=== PATIENT | female | born 1945 | race Caucasian/White ===

== ENCOUNTER 2024-12-27 13:18 | Emergency (ER) | payer MEDICARE, BC, SELFPAY ==
[2024-12-27] VITALS (33 sets, daily range): BP systolic 138–231; BP diastolic 91–160; PULSE 98–126; RESP 14–34; TEMP 37.2–37.3; O2SAT 82–99; BMI 31.5
--- NOTE | 2024-12-27 13:26 | CT_ITS ---
PROCEDURE: BRAIN/HEAD WITHOUT CONTRAST 12/27/2024 REASON FOR EXAM: CONFUSION TECHNIQUE: BRAIN/HEAD WITHOUT CONTRAST Coronal and Sagittal reconstruction series were provided. One or more dose reduction techniques were used (e.g., Automated exposure control, adjustment of the mA and/or kV according to patient size, use of iterative reconstruction technique. RADIATION DOSE SUMMARY: CTDlvol: 44.99 mGy DLP: 796.11 mGycm COMPARISON: None FINDINGS: Brain: Low density in the periventricular white matter suggests mild chronic small vessel ischemic changes. Old tiny lacunar infarct in the head of the left caudate nucleus. There is evidence of a calcified nodule in the anterior medial aspect of the left frontal lobe suggestive of a meningioma. This abuts the anterior aspect of the falx on the right side. CSF Spaces: Mild generalized cerebral atrophy Sinuses/Mastoids: Clear at visualized levels Bones: CT/Brain/Head without Contrast IMPRESSION: Cerebral atrophy. Old tiny lacune in the head of the caudate nucleus on the left side. Findings suggestive of a 1.1 cm x 1.4 cm meningioma in the anterior medial aspe ct of the right frontal lobe abutting the cerebral falx. Reading Location: [place] [id number]
--- NOTE | 2024-12-27 13:26 | RAD_ITS ---
EXAM: XR Chest, 1 View CLINICAL INDICATION: CONFUSION TECHNIQUE: Frontal view of the chest. COMPARISON: No relevant prior studies available. FINDINGS: LUNGS AND PLEURAL SPACES: Unremarkable. No consolidation. No pneumothorax. HEART: Cardiomegaly without overt failure. MEDIASTINUM: Unremarkable. Normal mediastinal contour. BONES/JOINTS: Unremarkable. No acute fracture. RAD/Chest 1 View (Portable) IMPRESSION: Cardiomegaly without overt failure. Reading Location: [facility]
--- NOTE | 2024-12-27 13:26 | ED.RN ---
called stroke alert in triage for patient symptoms- not following commands appropriately, unable to say the words she is trying to say. Dr Garber evaluated in ED and canceled stroke alert. glucose 400 and pt denies being diabetic.
[2024-12-27 13:53] LABS: Hematocrit 36.6 % (37-47); Hemoglobin 12.3 g/dL (12.0-15.0); Immature Granulocytes Count 0.060 X10^3/uL (0.0-0.0); Mean Corp Hgb Conc 33.6 g/dL (32-36); Mean Corpuscular Volume 85.9 fL (81-99); Mean Platelet Vol. 10.9 fl (6.2-12.0); NRBC Flagged by Analyzer 0 % (0-5); Platelet Count 244 K/mm3 (150-450); RBC Distribution Width CV 12.7 % (11.6-14.6); RBC Distribution Width SD 39.5 fl (35.1-43.9); Red Blood Count 4.26 M/mm3 (4.2-5.4); White Blood Count 10.4 K/mm3 (4.4-11.0)
[2024-12-27 14:27] LABS: Mucous, Urine 0 SEEN /hpf (<or=2+)
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
[2024-12-27 14:37] LABS: Color, Urine Straw (Yellow); Glucose, Dipstick 1000 mg/dl (Normal); Ketone-Dipstick Negative (Negative); Leukocyte Esterase-Dipstick Negative /ul (Negative); Nitrite-Dipstick Negative (Negative); Occult Blood-Urine Negative /ul (Negative); Protein-Dipstick 30 mg/dl (Negative); Specific Gravity, Urine 1.010 (1.002-1.030); Urine Bilirubin Dipstick Negative (Negative)
--- NOTE | 2024-12-27 14:54 | ED.RN ---
LAB CALLED FOR OUTSTANDING CHEMISTRY RESULTS. RESPONSE, IT SHOULD BE BACK SOON.
[2024-12-27 14:55] LABS: Troponin T High Sensitivity 24 ng/L (<=14)
[2024-12-27 14:57] LABS: Anion Gap 15 (5-15); BETA-HYDROXYBUTYRATE 0.1 mmol/L (0.0-0.3); BUN 24 mg/dL (4-19); BUN/Creat Ratio 17.4 RATIO (10-20); Calcium,Total 9.8 mg/dL (7.6-11.0); Carbon Dioxide 23.0 mmol/L (21.0-32.0); Chloride 98 mmol/L (98-108); Estimated Creatinine Clearance 28.17 ml/min (50-250); Glucose 392 mg/dL (70-99); Potassium 4.4 mmol/L (3.3-5.1)
[2024-12-27 14:58] LABS: Red Blood Cells-Urine 0-5 SEEN /hpf (0-5); Squamous Epithelial Cells - UA 0-5 SEEN /hpf (5-10); Transitional Epithelial - Ur 0-5 SEEN /hpf (0-5)
[2024-12-27 16:40] LABS: Troponin T High Sens 2 HR 20 ng/L (<=14)
[2024-12-27 17:38] LABS: Reflex Lactate? Y
[2024-12-27 19:23] LABS: Troponin T High Sens 4 HR 14 ng/L (<=14)
== END 2024-12-27 18:08 | disposition home or self-care (01) ==
PROVIDERS: Emergency Provider Emergency Medicine; PCP Family Medicine; Visit Provider Emergency Medicine
DX: R07.89 Other chest pain (principal); I11.0 Hypertensive heart disease with heart failure; I50.9 Heart failure, unspecified; E11.9 Type 2 diabetes mellitus without complications; F41.1 Generalized anxiety disorder; I25.10 Atherosclerotic heart disease of native coronary artery without angina pectoris; Z79.84 Long term (current) use of oral hypoglycemic drugs; Z79.899 Other long term (current) drug therapy
CPT/HCPCS: 70450; 71045; 80048; 81001; 82010; 82962; 83605; 84484; 85025; 87040; 87086; 87088; 96374; 96375; 99285; A4216

== ENCOUNTER 2025-05-01 07:47 | Inpatient (IN) | payer MEDICARE, BC, SELFPAY ==
[2025-05-01] VITALS (40 sets, daily range): BP systolic 102–216; BP diastolic 65–135; PULSE 70–155; RESP 15–28; TEMP 36.1–38.2; O2SAT 92–100; BMI 33.0; BMI 31.6
--- NOTE | 2025-05-01 07:49 | CT_ITS ---
PROCEDURE: STROKE BRAIN/HEAD WITHOUT CONT 05/01/2025 REASON FOR EXAM: NEURO DEFICIT, ACUTE, STROKE SUSPECTED TECHNIQUE: Procedure Code: CTBR.ST Modality: CT Procedure: STROKE BRAIN/HEAD WITHOUT CONT Coronal and Sagittal reconstruction series were provided. One or more dose reduction techniques were used (e.g., Automated exposure control, adjustment of the mA and/or kV according to patient size, use of iterative reconstruction technique. RADIATION DOSE SUMMARY: CTDlvol: 44.99 mGy DLP: 829.85 mGycm COMPARISON: Prior study dated December 27, 2024. FINDINGS: Brain: Low density in the periventricular white matter suggests mild chronic small vessel ischemic changes. Stable 1.1 cm by 1.4 cm densely calcified nodule in the anterior aspect of the right frontal lobe suggestive of a meningioma. No significant surrounding edema is seen. This is unchanged. 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 Calcific plaques of the cavernous portions of the internal carotid arteries bilaterally. CSF Spaces: Mild generalized cerebral atrophy Sinuses/Mastoids: Minimal mucosal thickening of the posterior aspect of the right ethmoid sinus. Bones: Unremarkable CT/STROKE Brain/Head without Cont IMPRESSION: Stable chronic changes as well as meningioma in the anterior aspect of the righ t frontal lobe. Stroke Alert: Stable examination The critical findings in the findings and impression above were relayed directl y by me by telephone to Hiren Garber on 05/01/2025 at 8:08 am with readback verification. Reading Location: [id number]
--- NOTE | 2025-05-01 07:49 | EKG12_ITS ---
Test Reason : STROKE ALERT Blood Pressure : */* mmHG Vent. Rate : 95 BPM Atrial Rate : 95 BPM P-R Int : 190 ms QRS Dur : 94 ms QT Int : 394 ms P-R-T Axes : 43 -50 60 degrees QTcB Int : 495 ms Sinus rhythm with Premature supraventricular complexes Left axis deviation Minimal voltage criteria for LVH, may be normal variant ( [place]ancock product ) ST & T wave abnormality, consider lateral ischemia BASELINE ARTIFACT Abnormal ECG Confirmed by Kameron Rutledge ([id number]), brands editor ESTELA CANTU ([id number]) on 05/02/2025 10:33:29 AM Referred By: Confirmed By: Kameron Rutledge
--- NOTE | 2025-05-01 07:50 | CT_ITS ---
PROCEDURE: STROKE CTA HEAD AND NECK W/CON 05/01/2025 REASON FOR EXAM: NEURO DEFICIT, ACUTE, STROKE SUSPECTED TECHNIQUE: Procedure Code: [id number].ST.HN Modality: CT Procedure: STROKE CTA HEAD AND NECK W/CON Multiplanar Sagittal and Coronal images were obtained. 3D post processing was performed CONTRAST: Isovue 370 VOLUME: 100 mL One or more dose reduction techniques were used (e.g., Automated exposure control, adjustment of the mA and/or kV according to patient size, use of iterative reconstruction technique). RADIATION DOSE SUMMARY: CTDlvol: 20.3 mGy DLP: 691.59 mGycm COMPARISON: Prior CT scan of the head done earlier in the day. FINDINGS: Aortic Arch: Normal size and branching pattern. Mild atherosclerotic plaque. Brachiocephalic and Subclavians: Mild atherosclerotic plaque without significant stenosis. RIGHT Carotid: Right CCA: Unremarkable. Right ICA: Mild calcified and soft plaque. Maximum stenosis (NASCET): <50 % Right ECA: Unremarkable. LEFT Carotid: Left CCA: Unremarkable. Left ICA: Mild calcified and soft plaque. Maximum stenosis (NASCET): <50 % Left ECA: Unremarkable. Vertebrals: Dominant left vertebral artery RIGHT Vertebral: Unremarkable. LEFT Vertebral: Unremarkable. Anatomy: [place] anatomy is normal.. Once again, a meningioma is seen in the anterior aspect of the right frontal lobe. Aneurysm or avm: No intracranial aneurysms or large vascular malformations are identified. Anterior cerebral arteries: Unremarkable: Middle cerebral arteries: Unremarkable. Basilar artery: Unremarkable. Posterior cerebral arteries: Unremarkable. Other major branches of the posterior circulation: Unremarkable. Major venous structures: Unremarkable. Other findings: Neck: Lungs: Bones: CT/STROKE CTA Head AND Neck W/Con IMPRESSION: Mild atherosclerotic plaque formation at the origin of both the right and left internal carotid arteries causing less than 50% stenosis. Stroke Alert: The critical findings in the findings and impression above were relayed directl y by me by telephone to Hiren Garber on 05/01/2025 at 8:12 am with readback verification. Reading Location: [id number]
--- NOTE | 2025-05-01 08:06 | EDS_ITS ---
HPI History of Present Illness Chief Complaint: Numb/Ting Informant: EMS Limited: other (Aphasia) Onset/Context/Timing Onset: Today Context: Sudden Onset Timing: Continuous Quality and Location: Positive for Expressive Aphasia Onset: 2 AM today Narrative Narrative: Patient presents with confusion and not following commands that began this morning. EMS states patient's last known well was around 2 AM today. EMS reports patient has been having some intermittent confusion over the past couple days. EMS reports patient was unable to follow commands but was moving all of her arms and legs. EMS reports patient is nonverbal. [facility] Medical History Hypothyroidism Diabetes Congestive heart failure (CHF) Coronary artery disease Hypertension Home Medications Medication Instructions Recorded Last Taken Type furosemide 20 mg tablet 20 mg PO DAILY 12/27/24 Unkn own History glimepiride 4 mg tablet 4 mg PO BID 12/27/24 Unknown History hydralazine 25 mg tablet 25 mg PO 4X/DAY 12/27/24 Unk nown History labetalol 200 mg tablet 600 mg PO BID 12/27/24 Unkno wn History levothyroxine 75 mcg tablet 75 mcg PO 12/27/24 Unknown History lisinopril 30 mg tablet 30 mg PO BID 12/27/24 Unknow n History metformin 1,000 mg tablet 1,000 mg PO BID 12/27/24 Unk nown History sitagliptin phosphate 100 mg 100 mg PO DAILY 12/27/24 Unknown History tablet (Januvia) Allergy/AdvReac Type Severity Reaction Status Date / Time No Known Allergies Allergy Verified 05/01/25 07:50 Social History Smoking Status: Never smoker ROS ROS ED Review of Systems ROS Unobtainable: due to mental status and other Details: Aphasia EXAM Physical Exam Const Vital Signs: 05/01/25 07:47 05/01/25 07:49 05/01/25 07:51 Temperature 97 F L Temperature Source Temporal Pulse Rate 88 83 Respiratory Rate 25 H Blood Pressure 102/83 H 140/70 H Blood Pressure Mean 89 93 Pulse Ox 95 96 Oxygen Delivery Method Room Air Room Air 05/01/25 08:12 05/01/25 08:19 05/01/25 08:30 Temperature Temperature Source Pulse Rate 90 94 95 Respiratory Rate 19 H 21 H 22 H Blood Pressure 102/83 H 155/87 H Blood Pressure Mean 89 109 Pulse Ox 97 96 96 Oxygen Delivery Method Room Air Room Air Room Air 05/01/25 08:53 05/01/25 09:00 05/01/25 09:30 Temperature Temperature Source Pulse Rate 77 91 Respiratory Rate 21 H 17 Blood Pressure 143/82 H 157/88 H Blood Pressure Mean 102 111 Pulse Ox 95 94 97 Oxygen Delivery Method Room Air Room Air Room Air 05/01/25 10:00 05/01/25 10:30 05/01/25 11:00 Temperature Temperature Source Pulse Rate 103 H 94 126 H Respiratory Rate 16 19 H 19 H Blood Pressure 173/97 H Blood Pressure Mean 122 Pulse Ox 95 94 92 Oxygen Delivery Method Room Air Room Air 05/01/25 11:00 05/01/25 11:13 05/01/25 11:15 Temperature Temperature Source Pulse Rate 118 H 101 H 139 H Respiratory Rate 25 H Blood Pressure Blood Pressure Mean Pulse Ox Oxygen Delivery Method 05/01/25 11:30 05/01/25 11:49 05/01/25 12:04 Temperature 99.5 F H Temperature Source Axillary Pulse Rate 138 H 135 H Respiratory Rate 18 25 H Blood Pressure 115/89 H Blood Pressure Mean 97 Pulse Ox 94 95 Oxygen Delivery Method Room Air Room Air 05/01/25 12:30 05/01/25 12:58 05/01/25 13:00 Temperature Temperature Source Pulse Rate 120 H 123 H 116 H Respiratory Rate 26 H 18 28 H Blood Pressure 123/109 H 137/111 H Blood Pressure Mean 113 119 Pulse Ox 96 95 98 Oxygen Delivery Method Room Air Room Air Room Air Positive well nourished and well developed General Appearance ED: well developed and NAD HEENT Reports moist mucous membranes Neck supple and no JVD Resp normal respiratory effort and clear to auscultation bilaterally Cardio Rate: regular rate Rhythm: regular rhythm GI soft to palpation, non-tender and non-distended Extremity General Extremety ED: Negative for deformity or tenderness General Extremity: Negative for deformity Neuro CN's II-XII intact bilaterally Neuro Narrative: Patient is moving all of her extremities but does not follow commands. Patient is nonverbal. There is no facial droop or weakness noted. There are no apparent sensory deficits. Sensorium / Orientation: alert Motor Exam: strength 5/5 throughout MDM MDM MDM Narrative Medical decision making narrative: Prehospital stroke was called. Stroke order set was used. Differential diagnosis includes stroke, intracranial bleeding, cardiac dysrhythmia, cardiac ischemia, pneumonia, bronchitis, electrolyte abnormality, dehydration, infection, and sepsis. CT scan of the brain will be obtained to assess for intracranial bleeding and stroke. CTA of the head and neck will be obtained to assess for large vessel occlusion and vascular stenosis. Chest x-ray will be obtained to assess for pneumonia and bronchitis. CBC will be obtained to assess for leukocytosis and anemia. Basic metabolic profile will be obtained to assess for electrolyte abnormality renal function. High-sensitivity troponin will be obtained to assess for cardiac ischemia. 2-hour repeat high-sensitivity troponin will be obtained to assess for ongoing cardiac ischemia. PT with INR and PTT will be obtained to assess for coagulopathy. Urinalysis will be obtained to assess for urinary tract infection. History & Record Review Additional record(s) reviewed:: Prior ED visit and Prior labs Lab Data Attestation: I reviewed the patient's lab results. Lab results narrative: CBC was reviewed. There is a mild leukocytosis of 12.3. The remainder is within normal limits. Urinalysis was reviewed. There is no evidence of urinary tract infection or hematuria. Basic metabolic profile was reviewed. Sodium was low at 124 and chloride was low at 86. CO2 was slightly low at 19.3. Anion gap was mildly elevated at 18. BUN was elevated at 41 and creatinine was 2.15. These are increased from previous results. Glucose was elevated at 410. Initial high-sensitivity troponin was reviewed and was slightly elevated at 28. Urinalysis was reviewed. There is no evidence of urinary tract infection or hematuria. Serum lactate was reviewed and was elevated at 2.4. Beta hydroxybutyrate was reviewed and was slightly elevated at 1.9. 2-hour repeat high-sensitivity troponin was reviewed and was improved at 25. 4-hour repeat high-sensitivity troponin was reviewed and was 24. Labs: Laboratory Results - last 24 hr 05/01/25 05/01/25 05/01/25 08:10 08:35 09:23 WBC 12.3 H RBC 4.06 L Hgb 11.4 L Hct 34.1 L MCV 84.0 MCH 28.1 MCHC 33.4 RDW Std Deviation 37.8 RDW Coeff of José 12.3 Plt Count 246 MPV 11.0 Immature Gran % (Auto) 1.000 H Neut % (Auto) 85.5 H Lymph % (Auto) 9.3 L Runnels % (Auto) 3.7 Eos % (Auto) 0.1 Baso % (Auto) 0.4 Absolute Neuts (auto) 10.5 H Absolute Lymphs (auto) 1.15 Nucleated RBC % 0 PT 14.0 INR 1.1 APTT 21.7 L Sodium 124 L Potassium 3.9 Chloride 86 L Carbon Dioxide 19.3 L Anion Gap 18 H BUN 41 H Creatinine 2.15 H Estim Creat Clear Calc 18.77 L Est GFR (MDRD) Non-Af 23 L BUN/Creatinine Ratio 19.0 Glucose 410 H Lactic Acid 2.4 H* Calcium 8.7 Troponin T High Sens 28 H D Troponin T Hi Sens 2 Hr Troponin T Hi Sens 4Hr b-Hydroxybutyric mmol/L 1.9 H Urine Color Yellow Urine Clarity Clear Urine pH 5.0 Ur Specific [place] 1.010 Urine Protein 30 H Urine Glucose (UA) 1000 H Urine Ketones 5 H Urine Occult Blood Negative Urine Nitrite Negative Urine Bilirubin Negative Urine Urobilinogen Normal Ur Leukocyte Esterase Negative Urine RBC 0 SEEN Urine WBC 0 SEEN Ur Squamous Epith Cells 0 SEEN Amorphous Sediment 1+ Urine Bacteria 0 SEEN Urine Mucus 0 SEEN 05/01/25 05/01/25 10:09 12:10 WBC RBC Hgb Hct MCV MCH MCHC RDW Std Deviation RDW Coeff of José Plt Count MPV Immature Gran % (Auto) Neut % (Auto) Lymph % (Auto) R[place] % (Auto) Eos % (Auto) Baso % (Auto) Absolute Neuts (auto) Absolute Lymphs (auto) Nucleated RBC % PT INR APTT Sodium Potassium Chloride Carbon Dioxide Anion Gap BUN Creatinine Estim Creat Clear Calc Est GFR (MDRD) Non-Af BUN/Creatinine Ratio Glucose Lactic Acid Calcium Troponin T High Sens Troponin T Hi Sens 2 Hr 25 H Troponin T Hi Sens 4Hr 24 H b-Hydroxybutyric mmol/L Urine Color Urine Clarity Urine pH Ur Specific [place] Urine Protein Urine Glucose (UA) Urine Ketones Urine Occult Blood Urine Nitrite Urine Bilirubin Urine Urobilinogen Ur Leukocyte Esterase Urine RBC Urine WBC Ur Squamous Epith Cells Amorphous Sediment Urine Bacteria Urine Mucus ABG Data Interpretation: Venous blood gas was reviewed. pH was 7.46, pCO2 was 57, and bicarb was 21. ABG results: ABG 05/01/25 11:34 Specimen Type ANNA Sample Site Not entered VBG pH 7.46 H VBG pO2 57 H VBG HCO3 21 L VBG Total CO2 22 L VBG O2 Sat (Calc) 91 H VBG Base Excess -3 L POC Mix VBG pCO2 Pt Tmp 29.5 L O2 Delivery Device Not entered Radiography Chest X-Ray - ED: 1 View, Read by ED Physician, Read by Radiologist and No Acute Disease Diagnostic Testing: Clinical Impression(s) from Imaging Studies Brain CT 05/01/25 07:49 IMPRESSION: Stable chronic changes as well as meningioma in the anterior aspect of the right frontal lobe. Stroke Alert: Stable examination The critical findings in the findings and impression above were relayed directly by me by telephone to Hiren Garber on 05/01/2025 at 8:08 am with readback verification. Reading Location: [id number] Head/Neck CTA 05/01/25 07:50 IMPRESSION: Mild atherosclerotic plaque formation at the origin of both the right and left internal carotid arteries causing less than 50% stenosis. Stroke Alert: The critical findings in the findings and impression above were relayed directly by me by telephone to Hiren Garber on 05/01/2025 at 8:12 am with readback verification. Reading Location: [id number] Chest X-Ray 05/01/25 08:45 IMPRESSION: Cardiomegaly. No acute abnormality is seen. Reading Location: [id number] CT scan of the brain was obtained. There is no acute intracranial abnormality. There is a meningioma in the right frontal lobe. There are stable chronic changes noted. This was interpreted by the radiologist and was also independently reviewed by myself. CTA of the head and neck was obtained. There is mild stenosis of the internal carotid arteries bilaterally that is less than 50%. This was interpreted by the radiologist and was also independently reviewed by myself. Portable 1 view chest x-ray was obtained. On my independent interpretation, lung contreras are clear. There is cardiomegaly. Bony thorax is normal. There is no acute process noted. Radiologist also interpreted the x-ray and agrees. EKG Initial EKG: Attestation: I personally reviewed and interpreted this EKG as follows: Interpretation: Sinus Rhythm (95) and Non-Specific ST Changes Comments: EKG was obtained. On my independent interpretation, it showed a normal sinus rhythm with occasional PACs with a rate of 95. LA interval, QRS interval, and QTc intervals were all normal. There is left axis deviation at - 50. There is borderline left ventricular hypertrophy. There are nonspecific ST-T wave changes. Prior EKG tracings: available for review Prior: Unchanged (12/27/2024) Follow-up EKG: Attestation: I personally reviewed and interpreted this EKG as follows: Interpretation: Sinus Tachycardia (With frequent PACs with a rate of 127) Comments: EKG was obtained. On my independent interpretation, it shows sinus rhythm with frequent PACs with a rate of 127. LA interval was approximately 190 ms. QRS interval was normal at 96 ms. QTc interval was 459 ms. There is borderline left axis deviation at -18. There are nonspecific ST-T wave changes. Prior EKG tracings: available for review Prior: Unchanged Management Discussion w/another healthcare provider: Hospitalist, [employer]older [employer] and Radiologist Treatment and Re-Evaluation Narrative: Patient remained confused. Patient is not following commands. Case was discussed with stroke neurologist, Dr. Shaikh at [facility]. She recommended admission to the hospital for further evaluation. She does not feel the patient is a candidate for tenecteplase at this time due to last known well being more than 3 hours. Patient was given a dose of Ativan. Patient was still restless on reevaluation. Case was discussed with the hospitalist. He will admit patient to ICU. understood and was agreeable with the plan. All questions were answered. Critical Care Time Critical Care Time: Yes Critical care time (excluding procedures): 30-74 minutes (47), Including time spent:, Discussing w/Patient &/or Family/Parasitology Teacher, Discussing w/Consultants, Arranging Admission or Transfer and Performing Direct Patient Care at Bedside Discharge Plan Dx/Rx/DC Orders Clinical Impression: AMS (altered mental status), Fever, Hyperglycemia, Hyponatremia Disposition Disposition: Acute Care Hospital [facility] NIHSS NIHSS 1a. Level of Consciousness: 0 - Alert; keenly responsive 1b. LOC Questions: 2 - Answers NEITHER question correctly 1c. LOC Commands: 2 - Performs NEITHER task correctly 2. Best Gaze: 0 - Normal 4. Facial Palsy: 0 - Normal symmetrical movements 5a. Left Arm: 0 - No drift; arm holds 90 (or 45) degrees for full 10 seconds 5b. Right Arm: 0 - No drift; arm holds 90 (or 45) degrees for full 10 seconds 6a. Left Le - No drift; leg holds 30-degree position for full 5 seconds 6b. Right Le - No drift; leg holds 30-degree position for full 5 seconds 8. Sensory: 0 - Normal; no sensory loss 9. Best Language: 2 - Severe aphasia; 10. Dysarthria: 2 - Severe dysarthria; Total: 8 Stroke Questions Stroke Team Activated: Yes Reviewed Inclusion/Exclusion criteria: Yes
[2025-05-01 08:24] LABS: Hematocrit 34.1 % (37-47); Hemoglobin 11.4 g/dL (12.0-15.0); Immature Granulocytes Count 0.120 X10^3/uL (0.0-0.0); Mean Corp Hgb Conc 33.4 g/dL (32-36); Mean Corpuscular Volume 84.0 fL (81-99); Mean Platelet Vol. 11.0 fl (6.2-12.0); NRBC Flagged by Analyzer 0 % (0-5); Platelet Count 246 K/mm3 (150-450); RBC Distribution Width CV 12.3 % (11.6-14.6); RBC Distribution Width SD 37.8 fl (35.1-43.9); Red Blood Count 4.06 M/mm3 (4.2-5.4); White Blood Count 12.3 K/mm3 (4.4-11.0)
[2025-05-01 08:32] LABS: Prothrombin Time (Protime)PT. 14.0 SECONDS (11.7-14.9)
[2025-05-01 08:33] LABS: Partial Thromboplast Time 21.7 Seconds (24.1-36.2)
[2025-05-01 08:40] LABS: Mucous, Urine 0 SEEN /hpf (<or=2+); Red Blood Cells-Urine 0 SEEN /hpf (0-5); Squamous Epithelial Cells - UA 0 SEEN /hpf (5-10)
--- NOTE | 2025-05-01 08:41 | ED.RN ---
pt has been moving around since arrival but is unable to follow commands. is at bed side.
[2025-05-01 08:44] LABS: Color, Urine Yellow (Yellow); Glucose, Dipstick 1000 mg/dl (Normal); Ketone-Dipstick 5 mg/dl (Negative); Leukocyte Esterase-Dipstick Negative /ul (Negative); Nitrite-Dipstick Negative (Negative); Occult Blood-Urine Negative /ul (Negative); Protein-Dipstick 30 mg/dl (Negative); Specific Gravity, Urine 1.010 (1.002-1.030); Urine Bilirubin Dipstick Negative (Negative)
--- NOTE | 2025-05-01 08:45 | RAD_ITS ---
PROCEDURE: CHEST 1 VIEW 05/01/2025 REASON FOR EXAM: NEURO DEFICIT, ACUTE, STROKE SUSPECTED TECHNIQUE: Frontal view of the chest. COMPARISON: December 27, 2024. FINDINGS: Hardware: EKG electrodes are seen. Heart: Moderate cardiomegaly. Tortuosity and calcification of the aortic arch. Lungs: No acute abnormality is seen. Bones: Degenerative changes are identified within the thoracic spine. Degenerative changes of the right shoulder. RAD/Chest 1 View IMPRESSION: Cardiomegaly. No acute abnormality is seen. Reading Location: [id number]
--- NOTE | 2025-05-01 08:59 | ED.RN ---
remains at bedside with pt
[2025-05-01 10:13] LABS: Anion Gap 18 (5-15); BUN 41 mg/dL (4-19); BUN/Creat Ratio 19.0 RATIO (10-20); Calcium,Total 8.7 mg/dL (7.6-11.0); Carbon Dioxide 19.3 mmol/L (21.0-32.0); Chloride 86 mmol/L (98-108); Estimated Creatinine Clearance 18.77 ml/min (50-250); Glucose 410 mg/dL (70-99); Potassium 3.9 mmol/L (3.3-5.1); Troponin T High Sensitivity 28 ng/L (<=14)
[2025-05-01 10:51] LABS: Troponin T High Sens 2 HR 25 ng/L (<=14)
[2025-05-01 11:38] LABS: SITE Not entered; VBG BASE EXCESS -3 mmol/L (-1.0-3.5); VBG PO2 57 mmHg (25-40); VBG SO2 91 % (50-70); VBG TCO2 22 mmol/L (23-33)
--- NOTE | 2025-05-01 11:41 | EKG12_ITS ---
Test Reason : REPEAT-RHYTHM CHANGE Blood Pressure : */* mmHG Vent. Rate : 127 BPM Atrial Rate : * BPM P-R Int : * ms QRS Dur : 96 ms QT Int : 316 ms P-R-T Axes : * -18 115 degrees QTcB Int : 459 ms Atrial fibrillation with rapid ventricular response Minimal voltage criteria for LVH, may be normal variant ( [place] product ) T wave abnormality, consider lateral ischemia Abnormal ECG Confirmed by Kameron Rutledge ([id number]), copy editor ESTELA CANTU ([id number]) on 05/02/2025 10:33:43 AM Referred By: JOSE Confirmed By: Kameron Rutledge
[2025-05-01 11:58] LABS: BETA-HYDROXYBUTYRATE 1.9 mmol/L (0.0-0.3)
--- NOTE | 2025-05-01 12:25 | ED.RN ---
per DR Garber, d/c [facility]
[2025-05-01 12:52] LABS: Troponin T High Sens 4 HR 24 ng/L (<=14)
--- NOTE | 2025-05-01 12:56 | ED.RN ---
provider at bedside, provider aware of vitals and labs. no new orders at this time
--- NOTE | 2025-05-01 13:23 | HP.PCM.HOS_ITS ---
HPI - General General Date of Admission: 05/01/25 Date of Service: 05/01/25 Chief Complaint: Confusion, altered mental status, fever HPI Narrative CHALINO ARGUELLES, is a 79 F who was brought to ED by her mainly for confusion and altered mental status. As per the who is the main history provider and patient's caregiver; she is not doing well for the last couple days. Initially started vomiting multiple x 5-6 about 3 days ago and then started having dry heaving. Patient not having good oral intake. He denies any usual flulike symptoms, abdominal pain, but she has been slow to walk on the on the walker and decreased alertness/altered mental status and activities of daily living. Patient is not sure about her UTI symptoms. He also said she usually have some loose bowel movement but was not persistent diarrhea. In the morning today patient was more confused, not verbalizing and was rolling on the bed. In ED, she is still not verbalizing confused, laying down in prone position on the bed. Vitals in the ED was noted to have fever about 100.7, tachycardia heart rate 126 to 135/min, with no hypoxia. Labs reviewed in the ED and suggestive of increased anion gap metabolic acidosis, increased creatinine and BUN suggestive of dehydration. There was a stroke alert called in the ED for expressive aphasia and altered mental status but it seems more generalized encephalopathy rather than any focal symptoms. Patient had CT head and CT head and neck in the ED [facility] Medical History (Updated 05/01/25 @ 16:28 by Tiffany Garrett) TIA (transient ischemic attack) Hypothyroidism Diabetes Congestive heart failure (CHF) Coronary artery disease Hypertension Home Medications Medication Instructions Recorded Last Taken Type furosemide 20 mg tablet 20 mg PO DAILY 12/27/24 Unkn own History glimepiride 4 mg tablet 4 mg PO BID 12/27/24 Unknown History hydralazine 25 mg tablet 25 mg PO 4X/DAY 12/27/24 Unk nown History labetalol 200 mg tablet 600 mg PO BID 12/27/24 Unkno wn History levothyroxine 75 mcg tablet 75 mcg PO 12/27/24 Unknown History lisinopril 30 mg tablet 30 mg PO BID 12/27/24 Unknow n History metformin 1,000 mg tablet 1,000 mg PO BID 12/27/24 Unk nown History sitagliptin phosphate 100 mg 100 mg PO DAILY 12/27/24 Unknown History tablet (Januvia) aspirin 81 mg tablet,delayed 81 mg PO DAILY heart 04/21 07/15 Unknown History release (Adult Aspirin Regimen) cholecalciferol (vitamin D3) 25 25 mcg PO DAILY low d 05/01/25 Unknown History mcg (1,000 unit) capsule Allergy/AdvReac Type Severity Reaction Status Date / Time No Known Allergies Allergy Verified 05/01/25 07:50 Social History Smoking Status: Never smoker ROS ROS Narrative 14 system ROS unobtainable due to altered mental status Review of Systems ROS Unobtainable: due to encephalopathy and due to mental status Vital Signs Vital Signs Vital Signs: 05/01/25 07:47 05/01/25 07:49 05/01/25 07:51 Temperature 97 F L Temperature Source Temporal Pulse Rate 88 83 Respiratory Rate 25 H Blood Pressure 102/83 H 140/70 H Blood Pressure Mean 89 93 Pulse Ox 95 96 Oxygen Delivery Method Room Air Room Air 05/01/25 08:12 05/01/25 08:19 05/01/25 08:30 Temperature Temperature Source Pulse Rate 90 94 95 Respiratory Rate 19 H 21 H 22 H Blood Pressure 102/83 H 155/87 H Blood Pressure Mean 89 109 Pulse Ox 97 96 96 Oxygen Delivery Method Room Air Room Air Room Air 05/01/25 08:53 05/01/25 09:00 05/01/25 09:30 Temperature Temperature Source Pulse Rate 77 91 Respiratory Rate 21 H 17 Blood Pressure 143/82 H 157/88 H Blood Pressure Mean 102 111 Pulse Ox 95 94 97 Oxygen Delivery Method Room Air Room Air Room Air 05/01/25 10:00 05/01/25 10:30 05/01/25 11:00 Temperature Temperature Source Pulse Rate 103 H 94 126 H Respiratory Rate 16 19 H 19 H Blood Pressure 173/97 H Blood Pressure Mean 122 Pulse Ox 95 94 92 Oxygen Delivery Method Room Air Room Air 05/01/25 11:00 05/01/25 11:13 05/01/25 11:15 Temperature Temperature Source Pulse Rate 118 H 101 H 139 H Respiratory Rate 25 H Blood Pressure Blood Pressure Mean Pulse Ox Oxygen Delivery Method 05/01/25 11:30 05/01/25 11:49 05/01/25 12:04 Temperature 99.5 F H Temperature Source Axillary Pulse Rate 138 H 135 H Respiratory Rate 18 25 H Blood Pressure 115/89 H Blood Pressure Mean 97 Pulse Ox 94 95 Oxygen Delivery Method Room Air Room Air 05/01/25 12:30 05/01/25 12:58 05/01/25 13:00 Temperature Temperature Source Pulse Rate 120 H 123 H 116 H Respiratory Rate 26 H 18 28 H Blood Pressure 123/109 H 137/111 H Blood Pressure Mean 113 119 Pulse Ox 96 95 98 Oxygen Delivery Method Room Air Room Air Room Air Weight Weight: 168 lb 13.985 oz Body Mass Index (BMI) 33.0 Physical Exam Narrative General: Disoriented to time, place, person and situation. Lethargic, confused HEENT: Atraumatic, PERRLA, Normocephalic. Oral: Oral mucosa dry no Gingival or Mucosal Lesions/ Ulcerations Neck: Supple, No JVD, Negative Carotid Bruits Chest wall/Lungs: Air entry diminished in bilateral lung bases. No crepitation/rhonchi Cardiovascular: Irregular heartbeat, tachycardia, No M/G/R Abdomen: Bowel Sounds sluggish, Soft, Non Tender, Non-Distended : No renal angle tenderness. No suprapubic tenderness. Extremities: No edema, Capillary Refill Less than 3 Seconds Skin: No rashes, No breakdown Musculoskeletal: No Tenderness to Palpation of Joints or Extremities Neurological: Nonfocal exam, nonverbal Psych/Mental Status: Confused, disoriented Results Lab / Micro Data 05/01/25 08:10 05/01/25 14:50 Labs: Laboratory Results - last 24 hr 05/01/25 08:10: WBC 12.3 H, RBC 4.06 L, Hgb 11.4 L, Hct 34.1 L, MCV 84.0, MCH 28.1, MCHC 33.4, RDW Std Deviation 37.8, RDW Coeff of José 12.3, Plt Count 246, MPV 11.0, Immature Gran % (Auto) 1.000 H, Neut % (Auto) 85.5 H, Lymph % (Auto) 9.3 L, [place] % (Auto) 3.7, Eos % (Auto) 0.1, Baso % (Auto) 0.4, Absolute Neuts (auto) 10.5 H, Absolute Lymphs (auto) 1.15, Nucleated RBC % 0, PT 14.0, INR 1.1, APTT 21.7 L, Sodium 124 L, Potassium 3.9, Chloride 86 L, Carbon Dioxide 19.3 L, Anion Gap 18 H, BUN 41 H, Creatinine 2.15 H, Estim Creat Clear Calc 18.77 L, Est GFR (MDRD) Non-Af 23 L, BUN/Creatinine Ratio 19.0, Glucose 410 H, Calcium 8.7, T roponin T High Sens 28 H D, b-Hydroxybutyric mmol/L 1.9 H 05/01/25 08:35: Urine Color Yellow, Urine Clarity Clear, Urine pH 5.0, Ur Specific [place] 1.010, Urine Protein 30 H, Urine Glucose (UA) 1000 H, Urine Ketones 5 H, Urine Occult Blood Negative, Urine Nitrite Negative, Urine Bilirubin Negative, Urine Urobilinogen Normal, Ur Leukocyte Esterase Negative, Urine RBC 0 SEEN, Urine WBC 0 SEEN, Ur Squamous Epith Cells 0 SEEN, Amorphous Sediment 1+, Urine Bacteria 0 SEEN, Urine Mucus 0 SEEN 05/01/25 09:23: Lactic Acid 2.4 H* 05/01/25 10:09: Troponin T Hi Sens 2 Hr 25 H 05/01/25 12:10: Troponin T Hi Sens 4Hr 24 H ABG Data ABG results: ABG 05/01/25 11:34 Specimen Type ANNA Sample Site Not entered VBG pH 7.46 H VBG pO2 57 H VBG HCO3 21 L VBG Total CO2 22 L VBG O2 Sat (Calc) 91 H VBG Base Excess -3 L POC Mix VBG pCO2 Pt Tmp 29.5 L O2 Delivery Device Not entered Imaging Radiology Impression Brain CT 05/01/25 07:49 IMPRESSION: Stable chronic changes as well as meningioma in the anterior aspect of the right frontal lobe. Stroke Alert: Stable examination The critical findings in the findings and impression above were relayed directly by me by telephone to Hiren Garber on 05/01/2025 at 8:08 am with readback verification. Reading Location: [id number] Head/Neck CTA 05/01/25 07:50 IMPRESSION: Mild atherosclerotic plaque formation at the origin of both the right and left internal carotid arteries causing less than 50% stenosis. Stroke Alert: The critical findings in the findings and impression above were relayed directly by me by telephone to Hiren Garber on 05/01/2025 at 8:12 am with readback verification. Reading Location: [id number] Chest X-Ray 05/01/25 08:45 IMPRESSION: Cardiomegaly. No acute abnormality is seen. Reading Location: [facility] Assessment & Plan Assessment/Plan (1) Fever: (2) Encephalopathy acute: (3) DKA (diabetic ketoacidoses): QUALIFIERS: Diabetes mellitus complication detail: without coma D iabetes mellitus type: type 2 Qualified Code(s): E11.10 - Type 2 diabetes mellitus with ketoacidosis without coma PLAN: Plan This is a 79 female being brought to ED in confused and disoriented state/altered mental status, lethargic and dehydrated. 1. Acute encephalopathy, possible metabolic/infectious/mixed etiology: Patient is being admitted in the ICU. Possible etiology might be suspected sepsis or DKA. Will try to treat underlying cause 2. Suspected sepsis: Patient has fever, tachycardia, A-fib RVR and elevated lactate. The patient presented with suspicion of sepsis with clinical indicators of fever 100.7 Fahrenheit, tachycardia, exact focus of infection unclear with acute sepsis-related organ dysfunction as evidenced by elevated lactate, acute encephalopathy and acute on chronic kidney injury. Follow sepsis protocol with sepsis order set regards to IV fluid and broad-spectrum antibiotics. Panculture including blood culture and urine culture ordered. 3. DKA with history of type II DM: Sepsis can masquerade as DKA. Anion gap 18, bicarb 19. VBG 7.46/mixed pCO2 29.5, 57, bicarb 21 ABG ordered. Repeat BMP and liver chemistry ordered. DKA protocol with aggressive IV fluid resuscitation, normal saline and then IV insulin drip after 2 L of bolus. Hold oral medications metformin, and sitagliptin 4. Expressive aphasia/numbness tingling with stroke alert in ED: I think this may be part of generalized acute encephalopathy with not verbalization. CT brain does not show any acute change but stable chronic changes of meningioma in anterior aspect of right frontal lobe. CTA head and neck does not show LVO but less than 50% bilateral ICA. MRI brain ordered. PT, OT, speech therapy/swallow evaluation and management, nursing NIH stroke scale, BP and glucose monitoring and control as per stroke protocol. TSH, A1c fasting lipid profile tomorrow AM. MRI brain and 2D echo with bubble contrast study ordered 5. Hypothyroidism: TSH and serum cortisol ordered. Resume home dose of oral levothyroxine the patient is awake and oral is permitted 6. CAD/CHF: Patient does not have echo or stress test in our system. Patient on furosemide 20 mg daily, labetalol, and lisinopril at home. 2D echo is ordered for tomorrow. proBNP ordered 7. Hypertension: Blood pressure is elevated. Monitor BP 8. Acute urine retention: She had urine retention about 1100 mL in the bladder. Avila catheter was inserted. Her agitation also got better. Living will/advanced directive/end of life care: Patient does not have living will. The is next of kin and power of energy attorney for him. After discussion of benefits/risks procedures involved with full code, DNR CC arrest and DNR CC, the patient's opted for full code. The patient's does want artificial life support including intubation, tube feed, ventilator and/chest compression, central venous catheter, vasopressor and DC shock if needed but does not want to prolong ventilator if patient is vegetable. Total time spent in [id number] encounter in discussion of advanced directive 17 minutes. Laboratory Results 05/01/25 08:10: WBC 12.3 H, RBC 4.06 L, Hgb 11.4 L, Hct 34.1 L, MCV 84.0, MCH 28.1, MCHC 33.4, RDW Std Deviation 37.8, RDW Coeff of José 12.3, Plt Count 246, MPV 11.0, Immature Gran % (Auto) 1.000 H, Neut % (Auto) 85.5 H, Lymph % (Auto) 9.3 L, [place] % (Auto) 3.7, Eos % (Auto) 0.1, Baso % (Auto) 0.4, Absolute Neuts (auto) 10.5 H, Absolute Lymphs (auto) 1.15, Nucleated RBC % 0, PT 14.0, INR 1.1, APTT 21.7 L, Sodium 124 L, Potassium 3.9, Chloride 86 L, Carbon Dioxide 19.3 L, Anion Gap 18 H, BUN 41 H, Creatinine 2.15 H, Estim Creat Clear Calc 18.77 L, Est GFR (MDRD) Non-Af 23 L, BUN/Creatinine Ratio 19.0, Glucose 410 H, Calcium 8.7, Troponin T High Sens 28 H D, b-Hydroxybutyric mmol/L 1.9 H 05/01/25 08:35: Urine Color Yellow, Urine Clarity Clear, Urine pH 5.0, Ur Specific [place] 1.010, Urine Protein 30 H, Urine Glucose (UA) 1000 H, Urine Ketones 5 H, Urine Occult Blood Negative, Urine Nitrite Negative, Urine Bilirubin Negative, Urine Urobilinogen Normal, Ur Leukocyte Esterase Negative, Urine RBC 0 SEEN, Urine WBC 0 SEEN, Ur Squamous Epith Cells 0 SEEN, Amorphous Sediment 1+, Urine Bacteria 0 SEEN, Urine Mucus 0 SEEN 05/01/25 09:23: Lactic Acid 2.4 H* 05/01/25 10:09: Troponin T Hi Sens 2 Hr 25 H 05/01/25 11:34: Specimen Type ANNA, Sample Site Not entered, VBG pH 7.46 H, VBG pO2 57 H, VBG HCO3 21 L, VBG Total CO2 22 L, VBG O2 Sat (Calc) 91 H, VBG Base Excess -3 L, POC Mix VBG pCO2 Pt Tmp 29.5 L, O2 Delivery Device Not entered 05/01/25 12:10: Troponin T Hi Sens 4Hr 24 H Clinical Impression(s) from Imaging Studies Brain CT 05/01/25 07:49 IMPRESSION: Stable chronic changes as well as meningioma in the anterior aspect of the right frontal lobe. Head/Neck CTA 05/01/25 07:50 IMPRESSION: Mild atherosclerotic plaque formation at the origin of both the right and left internal carotid arteries causing less than 50% stenosis. Chest X-Ray 05/01/25 08:45 IMPRESSION: Cardiomegaly. No acute abnormality is seen. Reading Location: [id number] Charges/Coding Visit Charges Inpatient E&M: 16299 Init Hosp L3 Procedures Hospitalists Procedures: 62200 Advncd Care Plan 30 Min D/C Safety Score for UGIB Assessment Amanda-Blatchford Bleeding Score (GBS): Stratifies upper GI bleeding patients who are "low-risk" and candidates for outpatient management. Hemoglobin, BUN, Recent Vital Signs: Hgb 11.4 g/dL (12.0-15.0) L 05/01/25 08:10 BUN 41 mg/dL (4-19) H 05/01/25 08:10 Pulse Rate 116 Blood Pressure 137/111 Total Risk Score: 2 Score Interpretation: Score of 0: A GBS of 0 is a “Low Risk” GI bleed, and is highly sensitive (99.6% in a 2007 retrospective study) for predicting which patients did not require any “medical intervention”: blood transfusion, endoscopy, or surgery. This was confirmed in a 2009 [facility] study where patients with a score of 0 were actually discharged and had no GI bleeding mortality at 6 month followup Score above 0: A GBS greater than zero suggests a “High Risk” GI bleed that is likely to require “medical intervention”: transfusion, endoscopy, or surgery. A higher GBS also correlated with a higher likelihood of needing intervention Scores >/= 6 are associated with >50% risk of needing intervention D/C Safety Score for LGIB Assessment Assessment Tool: Readmission and adverse event risk in patients with acute lower GI bleeding. Age, in years: >/= 70 Hemoglobin and Recent Vital Signs: Hgb 11.4 g/dL (12.0-15.0) L 05/01/25 08:10 Pulse Rate 116 05/01/25 13:00 Blood Pressure 137/111 05/01/25 12:58 Probability of safe discharge: 99% Total Risk Score: 2 Score Interpretation: Probability Percentage of safe discharge (absence of rebleeding, blood transfusion, therapeutic intervention, 28 day readmission, or ) Score of 8 or below: Consider discharge, with appropriate precautions. Score of 9 or above: Discharge NOT recommended. Consider admission with further workup and resuscitation as necessary.
[2025-05-01 13:29] LABS: Reflex Lactate? Y
[2025-05-01] MEDS: 0.9% Normal Saline (1000mL) 1,000 ML 1000 ML IV (13:46)
--- NOTE | 2025-05-01 14:17 | SEPSISATNOTE ---
Sepsis Attestation Sepsis Alert: Yes Sepsis Attestation: Agree w/Sepsis Date exam was performed: 05/01/25 Time exam was performed: 13:10 Possible Source of Sepsis: Unknown Sepsis Organ Dysfunction Criteria Present: SBP decrease of more than 40 mmHg, Creatinine > 2.0 mg/dL, Lactic Acid > 2 mmol/L, Serum CO2 < 20 mmol/L (on BMP) and New/Unexplained change in mental status Fluid Resuscitation Fluid resuscitation indicated?: Yes Fluid Resuscitation ordered: 30 ml/kg fluid bolus ordered Amount of fluid ordered: 2,205 Sepsis Note Date exam was performed: 05/01/25 Time exam was performed: 16:57 Sepsis Attestation: Sepsis re-evaluation was performed Response to fluids: Fluid responsive hypotension
[2025-05-01 14:33] LABS: CPK Total, Creatine Kinase 187 U/L (24-195)
--- NOTE | 2025-05-01 14:42 | NURSING ---
Arrived from ED restless and thrashing in bed. Does not answer questions or follow commands. PONCHO x4. Unable to complete NIHSS
[2025-05-01] MEDS: 0.9% Saline Lock 10 ML Syringe IV ×2 (14:54→15:41)
[2025-05-01] MEDS: 0.9% Normal Saline (1000mL) 1,000 ML 999 ML IV ×3 (14:54→17:03)
[2025-05-01 15:11] LABS: Allen Test Positive; Base Excess -4 mmol/L (-2 to +2); FI02 21.0; PO2 58 mmHG (75-100); SITE R Radial; SO2 91 % (94-98)
[2025-05-01 15:26] LABS: Pro- Brain NATRIURETIC PEPTIDE 495 pg/mL (<=1800)
[2025-05-01 15:29] LABS: AST(SGOT) 26 U/L (<=31); Alanine Aminotransfer ALT/SGPT 18 U/L (<=34); Albumin, Serum 4.4 g/dL (3.4-4.8); Alkaline Phosphatase 61 U/L (35-104); Anion Gap 24 (5-15); BUN 41 mg/dL (4-19); BUN/Creat Ratio 21.8 RATIO (10-20); Bilirubin, Direct 0.28 mg/dL (0.00-0.30); Calcium,Total 9.0 mg/dL (7.6-11.0); Carbon Dioxide 16.8 mmol/L (21.0-32.0); Chloride 87 mmol/L (98-108); Estimated Creatinine Clearance 21.12 ml/min (50-250); Globulin 3.0 g/dL (2.2-4.2); Glucose 430 mg/dL (70-99); Magnesium 1.7 mg/dL (1.5-2.2); Potassium 4.0 mmol/L (3.3-5.1)
[2025-05-01] MEDS: Insulin Lispro 100 UNIT in 0.9% Normal Saline (100mL Bag) 99 ML 5.1 UNIT CONT INF (15:29)
[2025-05-01] MEDS: Vancomycin HCl 2,000 MG in 0.9% Normal Saline (500mL Bag) 500 ML 250 MG IV (15:55)
[2025-05-01 15:56] LABS: CORTISOL PM 104.00 ug/dL (2.68-10.50)
--- NOTE | 2025-05-01 16:12 | PCM.RX.CS ---
Consult Antibiotic Management Pharmacy has been consulted to manage selected antibiotic: Vancomycin Type of Intervention Type of Consult: New start Suspected Infection Suspected Infection: Sepsis Labs Labs: Sodium 128 mmol/L (133-145) L 05/01/25 14:50 Potassium 4.0 mmol/L (3.3-5.1) 05/01/25 14:50 Chloride 87 mmol/L (98-108) L 05/01/25 14:50 Carbon Dioxide 16.8 mmol/L (21.0-32.0) L 05/01/25 14:50 Anion Gap 24 (5-15) H 05/01/25 14:50 BUN 41 mg/dL (4-19) H 05/01/25 14:50 Creatinine 1.87 mg/dL (0.70-1.20) H 05/01/25 14:50 Est GFR (MDRD) Non-Af 27 (>60) L 05/01/25 14:50 BUN/Creatinine Ratio 21.8 RATIO (10-20) H 05/01/25 14:50 Glucose 430 mg/dL (70-99) H 05/01/25 14:50 Microbiology Microbiology: Microbiology 05/01/25 14:20 Mucosa - Nasopharyngeal SARS-CoV-2, Influenza & RSV (PCR) - Final 05/01/25 08:35 Urine Catheter - Catheter Legionella Antigen - Final 05/01/25 08:35 Urine Catheter - Catheter Streptococcus pneumoniae Antigen (M - Final Pharmacy Plan for Drug Dosing Pharmacy Plan for Drug Dosing: NEW START IV VANCOMYCIN Consulting Physician: Jun Indication: Sepsis Goal Trough: 15-20 mg/dL SrCr: 1.87 mg/dL CrCl: 21 mL/min Comments: 200mg loading dose given 05/01 @ 1555 Vancomycin Dose: Will start 500mg Q24 05/02 @ 1600 and get a trough prior to 3rd total dose per policy. Pending Level: 05/03/25 @ 1530 Pharmacy Service will continue to monitor and adjust dosing as required.
[2025-05-01] MEDS: Piperacil/Tazobactam 3.375 GM in 0.9% Normal Saline (50mL MB+) 50 ML IV ×2 (17:06→23:10)
[2025-05-01] MEDS: dexMEDEtomidine 400 MCG in 0.9% Normal Saline (100mL Bag) 96 ML 9.2 MCG CONT INF (18:00)
[2025-05-01] MEDS: Dext 5%-0.45% NS 1,000 ML 150 ML IV (18:07)
[2025-05-01 19:14] LABS: Anion Gap 15 (5-15); Carbon Dioxide 20.0 mmol/L (21.0-32.0); Chloride 100 mmol/L (98-108); Magnesium 1.5 mg/dL (1.5-2.2); Potassium 3.3 mmol/L (3.3-5.1)
[2025-05-01] MEDS: Magnesium Sulfate 2 GM in Dextrose 5%-Water (100mL Bag) 100 ML IV (20:20)
[2025-05-01] MEDS: Potassium Chloride 10mEq/100mL 10 MEQ/100 ML IV.SOLN. 100 MEQ IV BOLUS ×4 (20:25→23:50)
[2025-05-01] MEDS: Heparin Injection (Vial) 5,000 UNIT/ML VIAL 5000 UNIT SC (21:39)
[2025-05-01 23:57] LABS: Anion Gap 13 (5-15); Carbon Dioxide 20.3 mmol/L (21.0-32.0); Chloride 99 mmol/L (98-108); Magnesium 2.4 mg/dL (1.5-2.2); Potassium 3.4 mmol/L (3.3-5.1)
[2025-05-02] VITALS (26 sets, daily range): BP systolic 98–196; BP diastolic 58–130; PULSE 46–170; RESP 15–27; TEMP 35.7–38.3; O2SAT 94–99; BMI 31.6; BMI 32.4
[2025-05-02] MEDS: dexMEDEtomidine 400 MCG in 0.9% Normal Saline (100mL Bag) 96 ML 22 MCG CONT INF (00:11)
[2025-05-02] MEDS: Dext 5%-0.45% NS 1,000 ML 150 ML IV ×2 (01:15→07:38)
[2025-05-02 03:21] LABS: Anion Gap 11 (5-15); Carbon Dioxide 20.5 mmol/L (21.0-32.0); Chloride 101 mmol/L (98-108); Magnesium 2.2 mg/dL (1.5-2.2); Potassium 3.3 mmol/L (3.3-5.1)
[2025-05-02] MEDS: Potassium Chloride 10mEq/100mL 10 MEQ/100 ML IV.SOLN. 100 MEQ IV BOLUS ×4 (03:52→07:05)
[2025-05-02] MEDS: dexMEDEtomidine 400 MCG in 0.9% Normal Saline (100mL Bag) 96 ML 14.7 MCG CONT INF (05:15)
[2025-05-02 06:11] LABS: Hematocrit 29.3 % (37-47); Hemoglobin 10.0 g/dL (12.0-15.0); Immature Granulocytes Count 0.050 X10^3/uL (0.0-0.0); Mean Corp Hgb Conc 34.1 g/dL (32-36); Mean Corpuscular Volume 84.4 fL (81-99); Mean Platelet Vol. 11.3 fl (6.2-12.0); NRBC Flagged by Analyzer 0 % (0-5); Platelet Count 193 K/mm3 (150-450); RBC Distribution Width CV 12.6 % (11.6-14.6); RBC Distribution Width SD 38.4 fl (35.1-43.9); Red Blood Count 3.47 M/mm3 (4.2-5.4); White Blood Count 10.3 K/mm3 (4.4-11.0)
--- NOTE | 2025-05-02 06:46 | MRI_ITS ---
PROCEDURE: BRAIN WITHOUT CONTRAST 05/02/2025 REASON FOR EXAM: ENCEPHALOPATHY TECHNIQUE: Procedure Code: MRIBR Modality: MR Procedure: BRAIN WITHOUT CONTRAST Multiplanar and multisequence images were obtained. COMPARISON: May 01, 2025 FINDINGS: Image quality is degraded by motion artifact. Brain: Acute ischemia is present in the right AESTHETICIAN distribution involving the right occipital lobe medially as well as a small portion of the posterior thalamus. Cytotoxic edema is present. Changes of chronic microvascular ischemia in the periventricular white matter, deep white matter. Ventricles: [id number] volume loss Major Intracranial Vessels: Correlate with recent CT angiogram. Limited by motion artifact. No gross aneurysm. Sinuses: Clear Mastoids: Clear MRI/Brain without Contrast IMPRESSION: 1. No hemorrhage. 2. Acute ischemia in the right posterior cerebral artery distribution involvin g the right occipital lobe and portions of the posterior right thalamus. 3. Chronic microvascular ischemic changes and volume loss. Red Alert: Ischemia The critical findings in the findings and impression above were relayed directl y by me by telephone to charge nurse, Nataliya Armando on 05/02/2025 at 1:40 pm Eastern standard time with readback verific ation. Instructions to contact the ordering or covering physician were relayed. Reading Location: [id number]
[2025-05-02 06:52] LABS: Anion Gap 11 (5-15); Carbon Dioxide 20.4 mmol/L (21.0-32.0); Chloride 102 mmol/L (98-108); Magnesium 2.3 mg/dL (1.5-2.2); Potassium 3.4 mmol/L (3.3-5.1)
[2025-05-02 07:07] LABS: AST(SGOT) 41 U/L (<=31); Alanine Aminotransfer ALT/SGPT 17 U/L (<=34); Albumin, Serum 3.4 g/dL (3.4-4.8); Alkaline Phosphatase 42 U/L (35-104); Anion Gap 12 (5-15); BETA-HYDROXYBUTYRATE 0.0 mmol/L (0.0-0.3); BUN 26 mg/dL (4-19); BUN/Creat Ratio 19.1 RATIO (10-20); Calcium,Total 7.6 mg/dL (7.6-11.0); Carbon Dioxide 20.5 mmol/L (21.0-32.0); Chloride 102 mmol/L (98-108); Cholesterol 130 mg/dL (<=200); Estimated Creatinine Clearance 29.21 ml/min (50-250); Globulin 2.2 g/dL (2.2-4.2); Glucose 160 mg/dL (70-99); Low Density Lipoprotein Calc. 71 mg/dL; Potassium 3.4 mmol/L (3.3-5.1); Triglycerides 141 mg/dL; Very Low Density Lipoprotein 28 mg/dL (5-40); cholesterol:hdl ratio screen 3.86
--- NOTE | 2025-05-02 07:50 | PN.HOSP_ITS ---
Reason for Visit Chief Complaint: Confusion, altered mental status, fever Objective Data Objective Data Vital Signs: Vital Signs Temp Pulse Resp BP Pulse Ox O2 Del Method 96.3 F L 49 L 16 98/58 L 98 Room Air 05/02/25 07:00 05/02/25 07:00 05/02/25 07:00 05/02/25 07:00 05/02/25 07:00 05/02/25 07:00 Oxygen Delivery Method Room Air Weight: 166 lb 3.657 oz Body Mass Index (BMI) 32.4 Intake & Output: Intake and Output for Last 24 Hours 04/30/25 05/01/25 05/02/25 23:59 23:59 23:59 Intake Total 5089.34 / 5094.84 2553.16 / 2553.16 Output Total 2900 / 2900 450 / 450 Balance 2189.34 / 2194.84 2103.16 / 2103.16 Lab / Micro Data 05/02/25 05:54 05/02/25 05:54 Labs: Laboratory Results - last 24 hr 05/01/25 08:10: WBC 12.3 H, RBC 4.06 L, Hgb 11.4 L, Hct 34.1 L, MCV 84.0, MCH 28.1, MCHC 33.4, RDW Std Deviation 37.8, RDW Coeff of José 12.3, Plt Count 246, MPV 11.0, Immature Gran % (Auto) 1.000 H, Neut % (Auto) 85.5 H, Lymph % (Auto) 9.3 L, [place] % (Auto) 3.7, Eos % (Auto) 0.1, Baso % (Auto) 0.4, Absolute Neuts (auto) 10.5 H, Absolute Lymphs (auto) 1.15, Nucleated RBC % 0, PT 14.0, INR 1.1, APTT 21.7 L, Sodium 124 L, Potassium 3.9, Chloride 86 L, Carbon Dioxide 19.3 L, Anion Gap 18 H, BUN 41 H, Creatinine 2.15 H, Estim Creat Clear Calc 18.77 L, Est GFR (MDRD) Non-Af 23 L, BUN/Creatinine Ratio 19.0, Glucose 410 H, Calcium 8.7, T roponin T High Sens 28 H D, b-Hydroxybutyric mmol/L 1.9 H 05/01/25 08:35: Urine Color Yellow, Urine Clarity Clear, Urine pH 5.0, Ur Specific [place] 1.010, Urine Protein 30 H, Urine Glucose (UA) 1000 H, Urine Ketones 5 H, Urine Occult Blood Negative, Urine Nitrite Negative, Urine Bilirubin Negative, Urine Urobilinogen Normal, Ur Leukocyte Esterase Negative, Urine RBC 0 SEEN, Urine WBC 0 SEEN, Ur Squamous Epith Cells 0 SEEN, Amorphous Sediment 1+, Urine Bacteria 0 SEEN, Urine Mucus 0 SEEN 05/01/25 09:23: Lactic Acid 2.4 H* 05/01/25 10:09: Troponin T Hi Sens 2 Hr 25 H 05/01/25 12:10: Total Creatine Kinase 187, Troponin T Hi Sens 4Hr 24 H 05/01/25 14:50: Sodium 128 L, Potassium 4.0, Chloride 87 L, Carbon Dioxide 16.8 L, Anion Gap 24 H, BUN 41 H, Creatinine 1.87 H, Estim Creat Clear Calc 21.12 L, Est GFR (MDRD) Non-Af 27 L, BUN/Creatinine Ratio 21.8 H, Glucose 430 H, Lactic Acid 1.9, Calcium 9.0, Magnesium 1.7, Total Bilirubin 0.69, Direct Bilirubin 0.28, AST 26, ALT 18, Alkaline Phosphatase 61, NT pro BNP II 495, Total Protein 7.4, Albumin 4.4, Globulin 3.0, TSH 0.979, Cortisol PM Sample 104.00 H 05/01/25 15:07: MRSA (PCR) Negative 05/01/25 15:23: POC Glucose 397 H 05/01/25 16:31: POC Glucose 324 H 05/01/25 17:30: POC Glucose 222 H 05/01/25 18:39: POC Glucose 156 H 05/01/25 18:40: Sodium 135, Potassium 3.3, Chloride 100, Carbon Dioxide 20.0 L, Anion Gap 15, Phosphorus 3.1, Magnesium 1.5 05/01/25 19:33: POC Glucose 158 H 05/01/25 20:36: POC Glucose 156 H 05/01/25 21:30: POC Glucose 180 H 05/01/25 22:36: POC Glucose 179 H 05/01/25 23:20: Sodium 132 L, Potassium 3.4, Chloride 99, Carbon Dioxide 20.3 L, Anion Gap 13, Phosphorus 3.2, Magnesium 2.4 H 05/01/25 23:29: POC Glucose 172 H 05/02/25 00:37: POC Glucose 157 H 05/02/25 01:31: POC Glucose 167 H 05/02/25 02:27: POC Glucose 148 H 05/02/25 02:36: Sodium 133, Potassium 3.3, Chloride 101, Carbon Dioxide 20.5 L, Anion Gap 11, Phosphorus 3.2, Magnesium 2.2 05/02/25 03:50: POC Glucose 166 H 05/02/25 05:28: POC Glucose 157 H 05/02/25 05:54: WBC 10.3, RBC 3.47 L, Hgb 10.0 L, Hct 29.3 L, MCV 84.4, MCH 28.8, MCHC 34.1, RDW Std Deviation 38.4, RDW Coeff of José 12.6, Plt Count 193, MPV 11.3, Immature Gran % (Auto) 0.500, Neut % (Auto) 71.1 H, Lymph % (Auto) 20.0, [place] % (Auto) 7.6, Eos % (Auto) 0.5, Baso % (Auto) 0.3, Absolute Neuts (auto) 7.3, Absolute Lymphs (auto) 2.06, Nucleated RBC % 0, Sodium 134 05/02/25 05:54: Sodium 133, Potassium 3.4 05/02/25 05:54: Potassium 3.4, Chloride 102 05/02/25 05:54: Chloride 102, Carbon Dioxide 20.5 L 05/02/25 05:54: Carbon Dioxide 20.4 L, Anion Gap 12 05/02/25 05:54: Anion Gap 11, BUN 26 H, Creatinine 1.37 H, Estim Creat Clear Calc 29.21 L, Est GFR (MDRD) Non-Af 39 L, BUN/Creatinine Ratio 19.1, Glucose 160 H, Hemoglobin A1c 8.9 H, Calcium 7.6, Phosphorus 3.1, Magnesium 2.3 H, Total Bilirubin 0.48, AST 41 H, ALT 17, Alkaline Phosphatase 42, Total Protein 5.6 L, Albumin 3.4, Globulin 2.2, Albumin/Globulin Ratio 1.5, Triglycerides 141, Cholesterol 130, LDL Cholesterol, Calc 71, VLDL Cholesterol 28, HDL Cholesterol 34 L, Cholesterol/HDL Ratio 3.86, b-Hydroxybutyric mmol/L 0.0, TSH 0.576 05/02/25 06:32: POC Glucose 144 H Micro: Microbiology 05/01/25 14:20 Mucosa - Nasopharyngeal SARS-CoV-2, Influenza & RSV (PCR) - Final 05/01/25 08:35 Urine Catheter - Catheter Legionella Antigen - Final 05/01/25 08:35 Urine Catheter - Catheter Streptococcus pneumoniae Antigen (M - Final ABG Data ABG results: ABG 05/01/25 05/01/25 11:34 15:08 Specimen Type ANNA ART Sample Site Not entered R Radial pH 7.43 Bicarbonate Actual 19.9 L Total CO2 21 Base Excess -4 L O2 Saturation 91 L O2 % 21.0 ABG pCO2 30.0 L ABG pO2 58 L Germain Test Positive VBG pH 7.46 H VBG pO2 57 H VBG HCO3 21 L VBG Total CO2 22 L VBG O2 Sat (Calc) 91 H VBG Base Excess -3 L POC Mix VBG pCO2 Pt Tmp 29.5 L O2 Delivery Device Not entered Not entered Vent Mode Not entered Radiography Diagnostic Testing: Radiology Impression Brain CT 05/01/25 07:49 IMPRESSION: Stable chronic changes as well as meningioma in the anterior aspect of the right frontal lobe. Stroke Alert: Stable examination The critical findings in the findings and impression above were relayed directly by me by telephone to Hiren Garber on 05/01/2025 at 8:08 am with readback verification. Reading Location: [id number] Head/Neck CTA 05/01/25 07:50 IMPRESSION: Mild atherosclerotic plaque formation at the origin of both the right and left internal carotid arteries causing less than 50% stenosis. Stroke Alert: The critical findings in the findings and impression above were relayed directly by me by telephone to Hiren Garber on 05/01/2025 at 8:12 am with readback verification. Reading Location: [id number] Chest X-Ray 05/01/25 08:45 IMPRESSION: Cardiomegaly. No acute abnormality is seen. Reading Location: [facility] Physical Exam Narrative Seen and examined. Overnight issues noticed. Patient is still not responsive, opens eyes on verbal stimulus.Restless and confused, pulling lines. Was started on Precedex drip last evening. Sinus bradycardia at 53 on monitor most probably due to Precedex drip Physical exam General: Disoriented to time, place, person and situation. Lethargic, confused HEENT: Atraumatic, Normocephalic. Mostly closed eyes Oral: Oral mucosa dry no Gingival or Mucosal Lesions/ Ulcerations Neck: Supple, No JVD, Negative Carotid Bruits Chest wall/Lungs: Air entry diminished in bilateral lung bases. No crepitation/rhonchi Cardiovascular: Sinus bradycardia no M/G/R Abdomen: Bowel Sounds sluggish, Soft, Non Tender, Non-Distended : No renal angle tenderness. No suprapubic tenderness. Extremities: No edema, Capillary Refill Less than 3 Seconds Skin: No rashes, No breakdown Musculoskeletal: No Tenderness to Palpation of Joints or Extremities Neurological: Nonfocal exam, nonverbal, reflexes DTR 2/4. GCS 12 E3 V4 M5 Psych/Mental Status: Confused, disoriented Assessment & Plan Assessment/Plan (1) Fever: (2) Encephalopathy acute: (3) DKA (diabetic ketoacidoses): QUALIFIERS: Diabetes mellitus type: type 2 Diabetes mellitus complication detail: without coma Qualified Code(s): E11.10 - Type 2 diabetes mellitus with ketoacidosis without coma PLAN: Plan This is a 79 female being brought to ED in confused and disoriented state/altered mental status, lethargic and dehydrated. 1. Acute encephalopathy, possible metabolic/infectious/mixed etiology: Patient is being admitted in the ICU. Possible etiology might be suspected sepsis or DKA. Will try to treat underlying cause 05/02: Overall no improvement but patient also on Precedex drip. Try to titrate down. Plan for MRI brain today 2. Suspected sepsis: Patient has fever, tachycardia, A-fib RVR and elevated lactate. The patient presented with suspicion of sepsis with clinical indicators of fever 100.7 Fahrenheit, tachycardia, exact focus of infection unclear with acute sepsis-related organ dysfunction as evidenced by elevated lactate, acute encephalopathy and acute on chronic kidney injury. Follow sepsis protocol with sepsis order set regards to IV fluid and broad-spectrum antibiotics. Panculture including blood culture and urine culture ordered. 05/02: Tmax 100.5 Fahrenheit yesterday afternoon morning no temperature 96.3 F on heating blanket. Urinary antigens are negative. Triple PCR for SARS-CoV-2, flu and RSV are negative. MRSA PCR negative 3. DKA with history of type II DM: Sepsis can masquerade as DKA. Anion gap 18, bicarb 19. VBG 7.46/mixed pCO2 29.5, 57, bicarb 21 ABG ordered. Repeat BMP and liver chemistry ordered. DKA protocol with aggressive IV fluid resuscitation, normal saline and then IV insulin drip after 2 L of bolus. Hold oral medications metformin, and sitagliptin 05/02: ABG last evening was reviewed yesterday. 7.43/30/58/21. Mild hypoxia/increased AA gradient. Anion gap closed x 2. BHG normal. TSH normal and cortisol high. A1c 8.9% 4. Expressive aphasia/numbness tingling with stroke alert in ED: I think this may be part of generalized acute encephalopathy with not verbalization. CT brain does not show any acute change but stable chronic changes of meningioma in anterior aspect of right frontal lobe. CTA head and neck does not show LVO but less than 50% bilateral ICA. MRI brain ordered. PT, OT, speech therapy/swallow evaluation and management, nursing NIH stroke scale, BP and glucose monitoring and control as per stroke protocol. TSH, A1c fasting lipid profile tomorrow AM. MRI brain and 2D echo with bubble contrast study ordered 05/02: Nonfocal exam. Mainly disoriented confused, not waking up. MRI brain today. 5. Hypothyroidism: TSH and serum cortisol ordered. Resume home dose of oral levothyroxine the patient is awake and oral is permitted 6. CAD/CHF: Patient does not have echo or stress test in our system. Patient on furosemide 20 mg daily, labetalol, and lisinopril at home. 2D echo is ordered for tomorrow. proBNP ordered 7. Hypertension: Blood pressure is elevated. Monitor BP 8. Acute urine retention: She had urine retention about 1100 mL in the bladder. Avila catheter was inserted. Her agitation also got better. 05/02: Draining urine Living will/advanced directive/end of life care: Patient does not have living will. The is next of kin and power of civil rights attorney for him. After discussion of benefits/risks procedures involved with full code, DNR CC arrest and DNR CC, the patient's opted for full code. The patient's does want artificial life support including intubation, tube feed, ventilator and/chest compression, central venous catheter, vasopressor and DC shock if needed but does not want to prolong ventilator if patient is vegetable. Total time spent in [id number] encounter in discussion of advanced directive 17 minutes. Microbiology Past 72 Hours 05/01/25 14:20 Mucosa - Nasopharyngeal SARS-CoV-2, Influenza & RSV (PCR) - Final 05/01/25 08:35 Urine Catheter - Catheter Legionella Antigen - Final 05/01/25 08:35 Urine Catheter - Catheter Streptococcus pneumoniae Antigen (M - Final Laboratory Results 05/01/25 08:10: WBC 12.3 H, RBC 4.06 L, Hgb 11.4 L, Hct 34.1 L, MCV 84.0, MCH 28.1, MCHC 33.4, RDW Std Deviation 37.8, RDW Coeff of José 12.3, Plt Count 246, MPV 11.0, Immature Gran % (Auto) 1.000 H, Neut % (Auto) 85.5 H, Lymph % (Auto) 9.3 L, [place] % (Auto) 3.7, Eos % (Auto) 0.1, Baso % (Auto) 0.4, Absolute Neuts (auto) 10.5 H, Absolute Lymphs (auto) 1.15, Nucleated RBC % 0, PT 14.0, INR 1.1, APTT 21.7 L, Sodium 124 L, Potassium 3.9, Chloride 86 L, Carbon Dioxide 19.3 L, Anion Gap 18 H, BUN 41 H, Creatinine 2.15 H, Estim Creat Clear Calc 18.77 L, Est GFR (MDRD) Non-Af 23 L, BUN/Creatinine Ratio 19.0, Glucose 410 H, Calcium 8.7, T roponin T High Sens 28 H D, b-Hydroxybutyric mmol/L 1.9 H 05/01/25 08:35: Urine Color Yellow, Urine Clarity Clear, Urine pH 5.0, Ur Specific [place] 1.010, Urine Protein 30 H, Urine Glucose (UA) 1000 H, Urine Ketones 5 H, Urine Occult Blood Negative, Urine Nitrite Negative, Urine Bilirubin Negative, Urine Urobilinogen Normal, Ur Leukocyte Esterase Negative, Urine RBC 0 SEEN, Urine WBC 0 SEEN, Ur Squamous Epith Cells 0 SEEN, Amorphous Sediment 1+, Urine Bacteria 0 SEEN, Urine Mucus 0 SEEN 05/01/25 09:23: Lactic Acid 2.4 H* 05/01/25 10:09: Troponin T Hi Sens 2 Hr 25 H 05/01/25 11:34: Specimen Type ANNA, Sample Site Not entered, VBG pH 7.46 H, VBG pO2 57 H, VBG HCO3 21 L, VBG Total CO2 22 L, VBG O2 Sat (Calc) 91 H, VBG Base Excess -3 L, POC Mix VBG pCO2 Pt Tmp 29.5 L, O2 Delivery Device Not entered 05/01/25 12:10: Total Creatine Kinase 187, Troponin T Hi Sens 4Hr 24 H 05/01/25 14:50: Sodium 128 L, Potassium 4.0, Chloride 87 L, Carbon Dioxide 16.8 L, Anion Gap 24 H, BUN 41 H, Creatinine 1.87 H, Estim Creat Clear Calc 21.12 L, Est GFR (MDRD) Non-Af 27 L, BUN/Creatinine Ratio 21.8 H, Glucose 430 H, Lactic Acid 1.9, Calcium 9.0, Magnesium 1.7, Total Bilirubin 0.69, Direct Bilirubin 0.28, AST 26, ALT 18, Alkaline Phosphatase 61, NT pro BNP II 495, Total Protein 7.4, Albumin 4.4, Globulin 3.0, TSH 0.979, Cortisol PM Sample 104.00 H 05/01/25 15:07: MRSA (PCR) Negative 05/01/25 15:08: Specimen Type ART, Sample Site R Radial, pH 7.43, Bicarbonate Actual 19.9 L, Total CO2 21, Base Excess -4 L, O2 Saturation 91 L, O2 % 21.0, A BG pCO2 30.0 L, ABG pO2 58 L, Germain Test Positive, O2 Delivery Device Not entered, Vent Mode Not entered 05/01/25 15:23: POC Glucose 397 H 05/01/25 16:31: POC Glucose 324 H 05/01/25 17:30: POC Glucose 222 H 05/01/25 18:39: POC Glucose 156 H 05/01/25 18:40: Sodium 135, Potassium 3.3, Chloride 100, Carbon Dioxide 20.0 L, Anion Gap 15, Phosphorus 3.1, Magnesium 1.5 05/01/25 19:33: POC Glucose 158 H 05/01/25 20:36: POC Glucose 156 H 05/01/25 21:30: POC Glucose 180 H 05/01/25 22:36: POC Glucose 179 H 05/01/25 23:20: Sodium 132 L, Potassium 3.4, Chloride 99, Carbon Dioxide 20.3 L, Anion Gap 13, Phosphorus 3.2, Magnesium 2.4 H 05/01/25 23:29: POC Glucose 172 H 05/02/25 00:37: POC Glucose 157 H 05/02/25 01:31: POC Glucose 167 H 05/02/25 02:27: POC Glucose 148 H 05/02/25 02:36: Sodium 133, Potassium 3.3, Chloride 101, Carbon Dioxide 20.5 L, Anion Gap 11, Phosphorus 3.2, Magnesium 2.2 05/02/25 03:50: POC Glucose 166 H 05/02/25 05:28: POC Glucose 157 H 05/02/25 05:54: WBC 10.3, RBC 3.47 L, Hgb 10.0 L, Hct 29.3 L, MCV 84.4, MCH 28.8, MCHC 34.1, RDW Std Deviation 38.4, RDW Coeff of José 12.6, Plt Count 193, MPV 11.3, Immature Gran % (Auto) 0.500, Neut % (Auto) 71.1 H, Lymph % (Auto) 20.0, [place] % (Auto) 7.6, Eos % (Auto) 0.5, Baso % (Auto) 0.3, Absolute Neuts (auto) 7.3, Absolute Lymphs (auto) 2.06, Nucleated RBC % 0, Sodium 134 05/02/25 05:54: Sodium 133, Potassium 3.4 05/02/25 05:54: Potassium 3.4, Chloride 102 05/02/25 05:54: Chloride 102, Carbon Dioxide 20.5 L 05/02/25 05:54: Carbon Dioxide 20.4 L, Anion Gap 12 05/02/25 05:54: Anion Gap 11, BUN 26 H, Creatinine 1.37 H, Estim Creat Clear Calc 29.21 L, Est GFR (MDRD) Non-Af 39 L, BUN/Creatinine Ratio 19.1, Glucose 160 H, Hemoglobin A1c 8.9 H, Calcium 7.6, Phosphorus 3.1, Magnesium 2.3 H, Total Bilirubin 0.48, AST 41 H, ALT 17, Alkaline Phosphatase 42, Total Protein 5.6 L, Albumin 3.4, Globulin 2.2, Albumin/Globulin Ratio 1.5, Triglycerides 141, Cholesterol 130, LDL Cholesterol, Calc 71, VLDL Cholesterol 28, HDL Cholesterol 34 L, Cholesterol/HDL Ratio 3.86, b-Hydroxybutyric mmol/L 0.0, TSH 0.576 05/02/25 06:32: POC Glucose 144 H 05/02/25 07:32: POC Glucose 147 H 05/01/25 08:35: Urine Color Yellow, Urine Clarity Clear, Urine pH 5.0, Ur Specific [place] 1.010, Urine Protein 30 H, Urine Glucose (UA) 1000 H, Urine Ketones 5 H, Urine Occult Blood Negative, Urine Nitrite Negative, Urine Bilirubin Negative, Urine Urobilinogen Normal, Ur Leukocyte Esterase Negative, Urine RBC 0 SEEN, Urine WBC 0 SEEN, Ur Squamous Epith Cells 0 SEEN, Amorphous Sediment 1+, Urine Bacteria 0 SEEN, Urine Mucus 0 SEEN 05/01/25 09:23: Lactic Acid 2.4 H* 05/01/25 12:10: Troponin T Hi Sens 4Hr 24 H Clinical Impression(s) from Imaging Studies Brain CT 05/01/25 07:49 IMPRESSION: Stable chronic changes as well as meningioma in the anterior aspect of the right frontal lobe. Head/Neck CTA 05/01/25 07:50 IMPRESSION: Mild atherosclerotic plaque formation at the origin of both the right and left internal carotid arteries causing less than 50% stenosis. Chest X-Ray 05/01/25 08:45 IMPRESSION: Cardiomegaly. No acute abnormality is seen. Reading Location: [id number] Charges/Coding Visit Charges Inpatient E&M: 70953 Subs Hosp L3 NIHSS NIHSS Nursing Documentation NIHSS Nursing Documentation: NIHSS: Ischemic Stroke/TIA Start: 05/01/25 14:19 Text: For ICU Patients: NIH sroke scale at Status: Active presentation and every 2 hours or with change in RN caregiver Freq: [id number] Protocol: Activity Type Activity Date Activity User E-sign Co-sign Detail Recorded Client Recorded Date Recorded By Document 05/02/25 06:00 TD [id number] 05/02/25 06:02 TD 05/02/25 06:00 NIH Stroke Scale [NIHSS] A score of 0 is "normal" or asymptomatic . Total possible score is 42. Inpatient: RN or Physician to activate a stroke alert for onset of new stroke symptoms or with NIHSS increase >/= 3 points. Following change in neurological status, NIHSS will be performed per physician order or more frequently PRN. -1a. Level of Consciousness 1 - Not alert; Arousable by minor stimuli to obey, answer & respond -1b. LOC Questions 2 - Answers NEITHER question correctly -1c. LOC Commands 2 - Performs NEITHER task correctly -4. Facial Palsy 0 - Normal symmetrical movements -'UN' explanation unable to follow commands , moving on own -'UN' explanation unable to follow commands , moving on own -'UN' explanation unable to follow commands , moving on own -'UN' explanation unable to follow commands , moving on own -'UN' explanation unable to follow commands -8. Sensory 0 - Normal; no sensory loss -9. Best Language 2 - Severe aphasia; -Total 7 Query Text:A score of 0 is "normal" or asymptomatic. Total possible score is 42 . ED: Notify Physician for NIHSS increase by > / = 3 points. Inpatient: RN or Physician to activate a stroke alert for NIHSS increase of > / = 3 points.
--- NOTE | 2025-05-02 08:11 | ECHOD_ITS ---
Reason For Study Reason For Study: DYSPNEA Procedure This was a 2D Doppler, Color Flow transthoracic echocardiogram. The study was technically difficult. The patient was scanned supine. Exam performed portable in ICU/CCU. Left Ventricle Normal size and thickness. Mild to moderate inferior and posterior hypokinesis. Estimated LVEF 55%. Stage II diastolic dysfunction. Right Ventricle Normal right ventricle. Atria The left atrium is mildly enlarged. Normal right atrium. Mitral Valve Mild (1+) mitral valve insufficiency. Tricuspid Valve Mild (1+) tricuspid valve insufficiency. Right ventricular systolic pressure estimated to be 47 mmHg. Aortic Valve Trisinus/trileaflet aortic valve. Trivial aortic valve insufficiency. Pulmonic Valve The pulmonic valve is not well visualized. Great Vessels Normal sized aortic root. Pericardium/Pleural No pericardial effusion. MMode/2D Measurements & Calculations LVIDd: 4.3 cm IVSd: 1.1 cm LVOT diam: 2.1 cm LVIDs: 3.0 cm LVPWd: 1.1 cm LVOT area: 3.4 cm2 RVDd: 3.7 cm FS: 29.6 % Ao root diam: 3.5 cm asc Aorta Diam: 3.7 cm LAV(MOD- bp): 60.2 ml LAV(MOD- bp) Indexed: 34.9 ml/m2 LAV(MOD- sp2): 63.4 ml LAV(MOD- sp4): 55.0 ml SV(MOD- sp4): 48.3 ml LVAd ap4: 26.7 cm2 LVAd ap2: 24.2 cm2 LVLd ap4: 7.0 cm LVLd ap2: 7.2 cm SI(MOD- sp4): 28.0 ml/m2 EDV(MOD-sp4): 82.1 ml EDV(MOD-sp2): 66.6 ml EDV(sp4-el): 86.5 ml EDV(sp2-el): 69.7 ml LVAs ap4: 15.7 cm2 LVAs ap2: 14.7 cm2 LVLs ap4: 6.1 cm LVLs ap2: 6.2 cm ESV(MOD-sp4): 33.8 ml ESV(MOD-sp2): 28.9 ml ESV(sp4-el): 34.4 ml ESV(sp2-el): 29.7 ml EF(MOD-sp4): 58.9 % EF(MOD-sp2): 56.6 % EF(sp4-el): 60.2 % SV(MOD-sp2): 37.7 ml SV(sp4-el): 52.1 ml Ao sinus diam: 3.2 cm SI(MOD-sp2): 21.9 ml/m2 Ao ST Junction: 2.5 cm LA dimension(2D): 4.3 cm LA A4 area: 19.6 cm2 TAPSE: 1.6 cm RA A4 area: 15.5 cm2 Time Measurements MV dec time: 0.17 sec Doppler Measurements & Calculations MV E max dominic: 92.6 cm/sec Lat Peak E' Dominic: 9.1 cm/sec Med Peak E' Dominic: 7.5 cm/sec MV A max dominic: 85.0 cm/sec E/E' lat: 10.2 E/E' med: 12.4 MV E/A: 1.1 MV dec slope: 530.2 cm/sec2 Ao V2 max: 152.5 cm/sec LV V1 max: 99.4 cm/sec Ao max P.3 mmHg LV V1 max P.0 mmHg Ao V2 mean: 109.9 cm/sec LV V1 mean P.5 mmHg Ao mean P.4 mmHg LV V1 mean: 76.6 cm/sec Ao V2 VTI: 33.9 cm LV V1 VTI: 19.0 cm AV (velocity ratio): 0.56 NUNO(I,D): 1.9 cm2 NUNO(V,D): 2.2 cm2 SV(LVOT): 64.4 ml PA V2 max: 82.9 cm/sec TR max dominic: 284.2 cm/sec TR max P.3 mmHg ECHO/Echo Complete Interpretation Summary Mild to moderate inferior and posterior hypokinesis. Estimated LVEF 55%. Stage II diastolic dysfunction. The left atrium is mildly enlarged. Mild (1+) mitral valve insufficiency. Mild (1+) tricuspid valve insufficiency. Right ventricular systolic pressure estimated to be 47 mmHg. Ordering Physician: Haim Barahona Performed By: Jennifer Rivera RDCS
--- NOTE | 2025-05-02 08:22 | EX.PCM.CONCC ---
Assessment & Plan Assessment/Plan (1) DKA (diabetic ketoacidoses): QUALIFIERS: Diabetes mellitus complication detail: without coma Diabetes mellitus type: type 2 Qualified Code(s): E11.10 - Type 2 diabetes mellitus with ketoacidosis without coma (2) AMS (altered mental status): PLAN: Plan RECOMMENDATIONS: 1. Discontinue Precedex and continue to hold all sedating medications. 2. Obtain follow-up ABG. 3. MRI brain. 4. Basal and sliding scale insulin coverage. 5. Dietary advancement, once encephalopathy improves. IMPRESSIONS: 1. Encephalopathy Most likely related to metabolic encephalopathy in the setting of DKA. CT imaging of the head was unremarkable. While the patient is still encephalopathic this morning, she was maintained on Precedex overnight. Therefore, recommend discontinuing all sedating medications. TSH was within normal limits. Will obtain follow-up ABG. MRI brain has been ordered by hospitalist. Empiric antibiotics will be continued to cover for potential infectious etiologies, pending results of blood and urine cultures. If cultures are negative, antibiotics will be discontinued. 2. DKA Resolved with IV fluid resuscitation and continuous insulin infusion. The patient has been transition to basal and sliding scale coverage. Diet can be advanced once encephalopathy improves. 3. History of coronary artery disease/CHF/hypertension/hypothyroidism Complicates care, management, recovery and prognosis. Continue supportive care as noted above. This note was generated with [employer] dictation software. It may contain incorrect words, spelling, and punctuation that were not noted in checking the note before signing. HPI Consult Data Date of Consult: 05/02/25 HPI Narrative Reason for Consultation: Sepsis, DKA HPI Narrative: The patient is an 79-year-old female, with a history as outlined below, who presented to the emergency department on May 01 with altered mental status and fevers. History pertinent to the patient's hospitalization was obtained primarily via chart review, as the patient is far too encephalopathic to provide any additional details. The patient has a documented history of coronary artery disease, congestive heart failure, diabetes mellitus and hypothyroidism. On presentation to the emergency department, the patient was documented to be febrile and mildly tachycardic but was otherwise maintaining appropriate oxygen saturations on room air. Blood pressure parameters were within normal limits. Laboratory evaluation revealed a white blood cell count of 12,000. Hemoglobin was low at 11.4 g/dL with a platelet count of 246,000. Chemistry profile was notable for a sodium of 124 with a chloride of 86, bicarbonate of 19, anion gap of 18 and creatinine of 2.15. Lactate was elevated at 2.4. Troponin was mildly increased to 28. BNP was normal at 495. Beta hydroxybutyrate level was elevated at 1.9. Urine analysis was unremarkable. CT head failed to demonstrate any acute intracranial findings. Chest x-ray demonstrated no acute cardiopulmonary process. The patient ultimately received supplemental IV fluids and was placed on antimicrobials along with a continuous insulin infusion. She was admitted to the medical intensive care unit for further management. Last evening, the patient apparently became agitated and was therefore ordered to receive a continuous infusion of Precedex. She is documented to be overall net +4.3 L for the hospitalization. Her white blood cell count this morning is normal. ABG from yesterday afternoon was notable for a pH of 7.43 with a pCO2 of 30 and pO2 of 58. The patient's anion gap has been closed since yesterday evening. [facility] Medical History (Updated 05/01/25 @ 16:28 by Tiffany Garrett) TIA (transient ischemic attack) Hypothyroidism Diabetes Congestive heart failure (CHF) Coronary artery disease Hypertension Home Medications Medication Instructions Recorded Last Taken Type furosemide 20 mg tablet 20 mg PO DAILY 12/27/24 Unknown History glimepiride 4 mg tablet 4 mg PO BID 12/27/24 Unknown History hydralazine 25 mg tablet 25 mg PO 4X/DAY 12/27/24 Unknown History labetalol 200 mg tablet 600 mg PO BID 12/27/24 Unknown History levothyroxine 75 mcg tablet 75 mcg PO hypothyroid 12/27/24 Unknown History lisinopril 30 mg tablet 30 mg PO BID 12/27/24 Unknown History metformin 1,000 mg tablet 1,000 mg PO BID 12/27/24 Unknown History sitagliptin phosphate 100 mg 100 mg PO DAILY 12/27/24 Unknown History tablet (Januvia) aspirin 81 mg tablet,delayed 81 mg PO DAILY heart 05/01/25 Unknown History release (Adult Aspirin Regimen) cholecalciferol (vitamin D3) 25 25 mcg PO DAILY low d 05/01/25 Unknown History mcg (1,000 unit) capsule Allergy/AdvReac Type Severity Reaction Status Date / Time No Known Allergies Allergy Verified 05/01/25 07:50 Social History Smoking Status: Never smoker ROS Review of Systems ROS Unobtainable: due to mental status Physical Exam Const no apparent distress General Appearance: lethargic HEENT normocephalic and head/scalp atraumatic Eyes PERRL, conjunctivae normal and no scleral icterus Neck supple General: trachea midline Chest inspection of chest normal Resp normal respiratory effort Auscultation: Negative for rales, rhonchi or wheezes Cardio S1 normal heart sound and S2 normal heart sound Rate: bradycardia GI normal to inspection, nondistended, normoactive bowel sounds Extremity no clubbing, cyanosis or edema Skin no rashes or lesions noted Neuro Neuro Narrative: Currently sedated on Precedex and unable to participate in examination. Lab / Micro Data 05/02/25 05:54 05/02/25 05:54 Labs: Laboratory Results - last 24 hr 05/01/25 08:10: WBC 12.3 H, RBC 4.06 L, Hgb 11.4 L, Hct 34.1 L, MCV 84.0, MCH 28.1, MCHC 33.4, RDW Std Deviation 37.8, RDW Coeff of José 12.3, Plt Count 246, MPV 11.0, Immature Gran % (Auto) 1.000 H, Neut % (Auto) 85.5 H, Lymph % (Auto) 9.3 L, Nuckolls % (Auto) 3.7, Eos % (Auto) 0.1, Baso % (Auto) 0.4, Absolute Neuts (auto) 10.5 H, Absolute Lymphs (auto) 1.15, Nucleated RBC % 0, PT 14.0, INR 1.1, APTT 21.7 L, Sodium 124 L, Potassium 3.9, Chloride 86 L, Carbon Dioxide 19.3 L, Anion Gap 18 H, BUN 41 H, Creatinine 2.15 H, Estim Creat Clear Calc 18.77 L, Est GFR (MDRD) Non-Af 23 L, BUN/Creatinine Ratio 19.0, Glucose 410 H, Calcium 8.7, Troponin T High Sens 28 H D, b-Hydroxybutyric mmol/L 1.9 H 05/01/25 08:35: Urine Color Yellow, Urine Clarity Clear, Urine pH 5.0, Ur Specific Clyde 1.010, Urine Protein 30 H, Urine Glucose (UA) 1000 H, Urine Ketones 5 H, Urine Occult Blood Negative, Urine Nitrite Negative, Urine Bilirubin Negative, Urine Urobilinogen Normal, Ur Leukocyte Esterase Negative, Urine RBC 0 SEEN, Urine WBC 0 SEEN, Ur Squamous Epith Cells 0 SEEN, Amorphous Sediment 1+, Urine Bacteria 0 SEEN, Urine Mucus 0 SEEN 05/01/25 09:23: Lactic Acid 2.4 H* 05/01/25 10:09: Troponin T Hi Sens 2 Hr 25 H 05/01/25 12:10: Total Creatine Kinase 187, Troponin T Hi Sens 4Hr 24 H 05/01/25 14:50: Sodium 128 L, Potassium 4.0, Chloride 87 L, Carbon Dioxide 16.8 L, Anion Gap 24 H, BUN 41 H, Creatinine 1.87 H, Estim Creat Clear Calc 21.12 L, Est GFR (MDRD) Non-Af 27 L, BUN/Creatinine Ratio 21.8 H, Glucose 430 H, Lactic Acid 1.9, Calcium 9.0, Magnesium 1.7, Total Bilirubin 0.69, Direct Bilirubin 0.28, AST 26, ALT 18, Alkaline Phosphatase 61, NT pro BNP II 495, Total Protein 7.4, Albumin 4.4, Globulin 3.0, TSH 0.979, Cortisol PM Sample 104.00 H 05/01/25 15:07: MRSA (PCR) Negative 05/01/25 15:23: POC Glucose 397 H 05/01/25 16:31: POC Glucose 324 H 05/01/25 17:30: POC Glucose 222 H 05/01/25 18:39: POC Glucose 156 H 05/01/25 18:40: Sodium 135, Potassium 3.3, Chloride 100, Carbon Dioxide 20.0 L, Anion Gap 15, Phosphorus 3.1, Magnesium 1.5 05/01/25 19:33: POC Glucose 158 H 05/01/25 20:36: POC Glucose 156 H 05/01/25 21:30: POC Glucose 180 H 05/01/25 22:36: POC Glucose 179 H 05/01/25 23:20: Sodium 132 L, Potassium 3.4, Chloride 99, Carbon Dioxide 20.3 L, Anion Gap 13, Phosphorus 3.2, Magnesium 2.4 H 05/01/25 23:29: POC Glucose 172 H 05/02/25 00:37: POC Glucose 157 H 05/02/25 01:31: POC Glucose 167 H 05/02/25 02:27: POC Glucose 148 H 05/02/25 02:36: Sodium 133, Potassium 3.3, Chloride 101, Carbon Dioxide 20.5 L, Anion Gap 11, Phosphorus 3.2, Magnesium 2.2 05/02/25 03:50: POC Glucose 166 H 05/02/25 05:28: POC Glucose 157 H 05/02/25 05:54: WBC 10.3, RBC 3.47 L, Hgb 10.0 L, Hct 29.3 L, MCV 84.4, MCH 28.8, MCHC 34.1, RDW Std Deviation 38.4, RDW Coeff of José 12.6, Plt Count 193, MPV 11.3, Immature Gran % (Auto) 0.500, Neut % (Auto) 71.1 H, Lymph % (Auto) 20.0, Nuckolls % (Auto) 7.6, Eos % (Auto) 0.5, Baso % (Auto) 0.3, Absolute Neuts (auto) 7.3, Absolute Lymphs (auto) 2.06, Nucleated RBC % 0, Sodium 134 05/02/25 05:54: Sodium 133, Potassium 3.4 05/02/25 05:54: Potassium 3.4, Chloride 102 05/02/25 05:54: Chloride 102, Carbon Dioxide 20.5 L 05/02/25 05:54: Carbon Dioxide 20.4 L, Anion Gap 12 05/02/25 05:54: Anion Gap 11, BUN 26 H, Creatinine 1.37 H, Estim Creat Clear Calc 29.21 L, Est GFR (MDRD) Non-Af 39 L, BUN/Creatinine Ratio 19.1, Glucose 160 H, Hemoglobin A1c 8.9 H, Calcium 7.6, Phosphorus 3.1, Magnesium 2.3 H, Total Bilirubin 0.48, AST 41 H, ALT 17, Alkaline Phosphatase 42, Total Protein 5.6 L, Albumin 3.4, Globulin 2.2, Albumin/Globulin Ratio 1.5, Triglycerides 141, Cholesterol 130, LDL Cholesterol, Calc 71, VLDL Cholesterol 28, HDL Cholesterol 34 L, Cholesterol/HDL Ratio 3.86, b-Hydroxybutyric mmol/L 0.0, TSH 0.576 05/02/25 06:32: POC Glucose 144 H 05/02/25 07:32: POC Glucose 147 H Micro: Microbiology 05/01/25 14:20 Mucosa - Nasopharyngeal SARS-CoV-2, Influenza & RSV (PCR) - Final 05/01/25 08:35 Urine Catheter - Catheter Legionella Antigen - Final 05/01/25 08:35 Urine Catheter - Catheter Streptococcus pneumoniae Antigen (M - Final ABG Data ABG results: ABG 05/01/25 05/01/25 11:34 15:08 Specimen Type ANNA ART Sample Site Not entered R Radial pH 7.43 Bicarbonate Actual 19.9 L Total CO2 21 Base Excess -4 L O2 Saturation 91 L O2 % 21.0 ABG pCO2 30.0 L ABG pO2 58 L Germain Test Positive VBG pH 7.46 H VBG pO2 57 H VBG HCO3 21 L VBG Total CO2 22 L VBG O2 Sat (Calc) 91 H VBG Base Excess -3 L POC Mix VBG pCO2 Pt Tmp 29.5 L O2 Delivery Device Not entered Not entered Vent Mode Not entered Imaging Radiology Impression Chest X-Ray 05/01/25 08:45 IMPRESSION: Cardiomegaly. No acute abnormality is seen. Reading Location: [place] Charges/Coding Visit Charges Inpatient E&M: 08622 Init Hosp L3
[2025-05-02] MEDS: KCL 20MEQ in D5.45NS 20 MEQ/1,000 ML IV.SOLN. 125 MEQ IV (08:23)
[2025-05-02] MEDS: Insulin Glargine-YFGN 100 UNIT/ML Pen 8 UNIT SC (08:24)
[2025-05-02 10:13] LABS: Allen Test Positive; Base Excess -5 mmol/L (-2 to +2); FI02 21.0; PO2 57 mmHG (75-100); SITE R Radial; SO2 90 % (94-98)
[2025-05-02] MEDS: Piperacil/Tazobactam 3.375 GM in 0.9% Normal Saline (50mL MB+) 50 ML IV ×2 (10:18→21:45)
[2025-05-02] MEDS: Heparin Injection (Vial) 5,000 UNIT/ML VIAL 5000 UNIT SC ×2 (10:19→21:46)
--- NOTE | 2025-05-02 11:47 | CHAPLAIN ---
Type of Pastoral Visit _x__ Initial Visit ___ Follow-up Visit ___ On-call Visit ___ General Patient Visit ___ Spiritual Assessment ___ Family Conference ___ Bereavement ___ Rapid Response ___ Code Blue ___ Other (describe below) Pastoral Care Referral From ___ Patient _x__ Family ___ Nurse ___ Physician ___ Outside Cutter ___ Production Department Supervisor ___ Other (describe below) Sacrament/Intervention _x__ Active listening ___ Anointing ___ Jainism ___ Bereavement ___ Communion ___ Graciela exploration ___ ___ Life review _x__ Prayer ___ Reconciliation ___ Sacrament of Sick _x__ Supportive presence ___ Wedding ___ Other (describe below) Pastoral Comments patient is awake but not alert enough to engage in conversation; pt says words but are unintelligible at this time; family members desire spiritual care support and prayer which is given; family requests future visits to be made as most of them are not able to come daily for visits; pt is member of the [employer]; family members are offered support as well
[2025-05-02] MEDS: 0.9% Saline Lock 10 ML Syringe IV (12:05)
--- NOTE | 2025-05-02 14:00 | CASEMGMT ---
RN MARGAUX ASSESSMENT RN MARGAUX to room to meet with family for initial transition planning/care coordination assessment. ANA LILIA DAMICO introduced self and role at [facility]. Pt resting in bed, confused. Pt's & 2 daughters, Nathalia & Gretchen, @ bedside. Care providers, pharmacy, and demographics verified/updated at this time. Strata: 2 PCP: Dr Perez Specialists: Dr Aaron, check weigher MARGAUXF/Hortencia. Carmen Ledesma, FRYLINE ATTENDANT, for Dr Gray, neurology. [facility]: [facility] [employer] [place] Prescription Benefit: Yes Living Will/HPOA: Pt has HCPOA and LW. is pt's HCPOA. Daughter, Nathalia, is 1st alternative. Daughter, Gretchen, is 2nd alternative. brought in HCPOA document, copy made and placed on chart, and copy returned to . Copy also made and to be sent to HIM to be scanned into Inside. LNOK: , Srinivasa. 2 daughters: Nathalia & Gretchen Living Arrangements: Lives w/ in one-story home w/1 step to enter through [employer]. Pt was independent until this past week, when she started feeling ill and weak. states pt thought she had the flu. Then, states pt started having confusion and difficulty talking yesterday and squad was called. Transportation: drives DME: Pt has a cane and glucometer @ home. HHC/SNF: No history. Neuro consult just completed and family states they were just informed that pt had a stroke. Dr Cates came in while ANA LILIA DAMICO talking w/family and answered further questions. Family made aware therapy's will evaluate pt tomorrow and CM/SW will f/u with them after evals completed and recommendations received to discuss further discharge planning. They voice understanding. PLAN: TBD. PT/OT/ST evals pending. Alexandria VALADEZ RN, CM
--- NOTE | 2025-05-02 14:15 | NEURO.CONS ---
Assessment and Plan: Neuro Assessment/Plan CHALINO ARGUELLES is a 79 F with a past medical history of diabetes presenting with confusion and found to have acute ischemic stroke. Diagnosis: acute ischemic stroke Plan: - continue ASA 81 mg - nursing NIHSS checks per protocol; CTH for acute change - no need for permissive HTN as we are out of acute window: goal systolic < 130 - aggressive diabetes control - check LDL; continue atorvastatin 40 mg daily - echocardiogram - heart monitor to assess for AF - SLT for swallowing - PT/OT for assessment of rehab needs I personally attended this patient and spent a total time of 45 minutes evaluating this patient including clinical assessment, review of chart, medical history imaging, and determining appropriate treatment and workup. Arsenio Calle MD Field Laboratory Operator, [facility] HPI Consult Data Date of Consult: 05/02/25 HPI Narrative HPI Narrative: CHALINO ARGUELLES, is a 79 F who presents with confusion. History per chart and daughters who are bedside as patient provides none. Evening Monday 04/30 her speech was "urgent" but she was not confused. Confused AM Tuesday 05/01 and came to ED. Treated for DKA and electrolyte derangement and infection/sepsis and with encephalopathy and neurology was consulted. As I was in room (via telemedicine robot) with family her MRI returned and I read the image personally while evaluating her: it shows an acute ischemic stroke. I notified nursing and reading efficiency course director. WIth no clear last known well (certainly >24 hours) she is outside the window for intervention. [facility] Medical History (Updated 05/01/25 @ 16:28 by Tiffany Garrett) TIA (transient ischemic attack) Hypothyroidism Diabetes Congestive heart failure (CHF) Coronary artery disease Hypertension Home Medications Medication Instructions Recorded Last Taken Type furosemide 20 mg tablet 20 mg PO DAILY 12/27/24 Unknown History glimepiride 4 mg tablet 4 mg PO BID 12/27/24 Unknown History hydralazine 25 mg tablet 25 mg PO 4X/DAY 12/27/24 Unknown History labetalol 200 mg tablet 600 mg PO BID 12/27/24 Unknown History levothyroxine 75 mcg tablet 75 mcg PO hypothyroid 12/27/24 Unknown History lisinopril 30 mg tablet 30 mg PO BID 12/27/24 Unknown History metformin 1,000 mg tablet 1,000 mg PO BID 12/27/24 Unknown History sitagliptin phosphate 100 mg 100 mg PO DAILY 12/27/24 Unknown History tablet (Januvia) aspirin 81 mg tablet,delayed 81 mg PO DAILY heart 05/01/25 Unknown History release (Adult Aspirin Regimen) cholecalciferol (vitamin D3) 25 25 mcg PO DAILY low d 05/01/25 Unknown History mcg (1,000 unit) capsule Allergy/AdvReac Type Severity Reaction Status Date / Time No Known Allergies Allergy Verified 05/01/25 07:50 Social History Smoking Status: Never smoker Vital Signs Vital Signs Vital Signs: 05/01/25 14:58 05/01/25 15:06 05/01/25 15:07 Temperature 97.8 F Temperature Source Temporal Pulse Rate 140 H 153 H Respiratory Rate 28 H 24 H Respiratory Effort Respiratory Depth Respiratory Pattern Blood Pressure 161/123 H 167/135 H Blood Pressure Mean 135 145 Blood Pressure Source Monitor Blood Pressure Position Semi-Fowlers Blood Pressure Location Left Arm Pulse Ox 96 95 98 Oxygen Delivery Method Room Air Room Air Room Air 05/01/25 15:15 05/01/25 15:30 05/01/25 15:30 Temperature 100.5 F H Temperature Source Core Pulse Rate 155 H 115 H Respiratory Rate 21 H 20 H Respiratory Effort Normal Short of Breath Respiratory Depth Shallow Respiratory Pattern Tachypnea Blood Pressure 165/135 H 216/107 H Blood Pressure Mean 145 143 Blood Pressure Source Blood Pressure Position Blood Pressure Location Pulse Ox 93 95 Oxygen Delivery Method Room Air Room Air Room Air 05/01/25 16:00 05/01/25 16:00 05/01/25 16:30 Temperature 100.1 F H 99.8 F H Temperature Source Core Core Pulse Rate 109 H 115 H 126 H Respiratory Rate 19 H 19 H Respiratory Effort Respiratory Depth Respiratory Pattern Blood Pressure 181/108 H 186/89 H Blood Pressure Mean 132 121 Blood Pressure Source Monitor Monitor Blood Pressure Position Semi-Fowlers Semi-Fowlers Blood Pressure Location Right Forearm Right Forearm Pulse Ox 96 94 Oxygen Delivery Method Room Air Room Air 05/01/25 17:00 05/01/25 17:30 05/01/25 18:00 Temperature 99.8 F H 99.8 F H Temperature Source Core Core Pulse Rate 124 H 116 H 124 H Respiratory Rate 17 18 20 H Respiratory Effort Respiratory Depth Respiratory Pattern Blood Pressure 183/102 H 121/89 H 179/110 H Blood Pressure Mean 129 99 133 Blood Pressure Source Monitor Monitor Monitor Blood Pressure Position Semi-Fowlers Semi-Fowlers Semi-Fowlers Blood Pressure Location Right Forearm Left Arm Left Arm Pulse Ox 95 95 94 Oxygen Delivery Method Room Air Room Air Room Air 05/01/25 18:30 05/01/25 19:00 05/01/25 19:56 Temperature Temperature Source Pulse Rate 112 H 113 H 97 Respiratory Rate 25 H 25 H Respiratory Effort Respiratory Depth Respiratory Pattern Blood Pressure 178/76 H 154/76 H Blood Pressure Mean 110 98 Blood Pressure Source Monitor Monitor Blood Pressure Position Semi-Fowlers Semi-Fowlers Blood Pressure Location Left Arm Left Arm Pulse Ox 95 96 Oxygen Delivery Method Room Air Room Air 05/01/25 20:00 05/01/25 20:00 05/01/25 20:26 Temperature 99.5 F H Temperature Source Core Pulse Rate 104 H Respiratory Rate 20 H Respiratory Effort Normal Non-Labored Respiratory Depth Normal Respiratory Pattern Normal Blood Pressure 134/80 H Blood Pressure Mean 98 Blood Pressure Source Monitor Blood Pressure Position Supine Blood Pressure Location Pulse Ox 95 95 Oxygen Delivery Method Room Air Room Air Room Air 05/01/25 21:00 05/01/25 22:00 05/01/25 23:00 Temperature 99 F 98.5 F 98 F Temperature Source Core Core Core Pulse Rate 86 75 70 Respiratory Rate 15 17 20 H Respiratory Effort Respiratory Depth Respiratory Pattern Blood Pressure 133/91 H 107/92 H 125/65 H Blood Pressure Mean 105 97 85 Blood Pressure Source Monitor Monitor Monitor Blood Pressure Position Semi-Fowlers Semi-Fowlers Supine Blood Pressure Location Left Arm Left Arm Left Arm Pulse Ox 99 97 100 Oxygen Delivery Method Room Air Room Air Room Air 05/02/25 00:00 05/02/25 00:00 05/02/25 00:00 Temperature 97.3 F L Temperature Source Core Pulse Rate 63 62 Respiratory Rate 16 Respiratory Effort Normal Non-Labored Respiratory Depth Normal Respiratory Pattern Normal Blood Pressure 112/59 L Blood Pressure Mean 76 Blood Pressure Source Monitor Blood Pressure Position Supine Blood Pressure Location Left Arm Pulse Ox 97 Oxygen Delivery Method Room Air Room Air 05/02/25 01:00 05/02/25 02:00 05/02/25 03:00 Temperature 96.7 F L Temperature Source Core Pulse Rate 58 L 56 L 56 L Respiratory Rate 24 H 24 H 26 H Respiratory Effort Respiratory Depth Respiratory Pattern Blood Pressure 114/59 L 125/64 H 118/67 Blood Pressure Mean 77 84 84 Blood Pressure Source Monitor Monitor Monitor Blood Pressure Position Supine Supine Supine Blood Pressure Location Left Arm Left Arm Left Arm Pulse Ox 98 97 97 Oxygen Delivery Method Room Air Room Air Room Air 05/02/25 03:03 05/02/25 04:00 05/02/25 04:00 Temperature 96.3 F L Temperature Source Core Pulse Rate 56 L 56 L Respiratory Rate 27 H Respiratory Effort Normal Non-Labored Respiratory Depth Normal Respiratory Pattern Normal Blood Pressure 120/73 Blood Pressure Mean 88 Blood Pressure Source Monitor Blood Pressure Position Supine Blood Pressure Location Left Arm Pulse Ox 97 Oxygen Delivery Method Room Air Room Air 05/02/25 05:00 05/02/25 06:00 05/02/25 07:00 Temperature 96.3 F L Temperature Source Core Pulse Rate 46 L 46 L 49 L Respiratory Rate 15 15 16 Respiratory Effort Respiratory Depth Respiratory Pattern Blood Pressure 110/63 105/63 98/58 L Blood Pressure Mean 78 77 71 Blood Pressure Source Monitor Monitor Monitor Blood Pressure Position Supine Supine Supine Blood Pressure Location Left Arm Left Arm Left Arm Pulse Ox 98 98 98 Oxygen Delivery Method Room Air Room Air Room Air 05/02/25 07:58 05/02/25 08:00 05/02/25 09:00 Temperature 97.6 F L 98.4 F Temperature Source Core Core Pulse Rate 53 L 54 L 68 Respiratory Rate 18 23 H Respiratory Effort Respiratory Depth Respiratory Pattern Blood Pressure 100/59 L 121/71 H Blood Pressure Mean 72 87 Blood Pressure Source Monitor Monitor Blood Pressure Position Supine Supine Blood Pressure Location Left Arm Left Arm Pulse Ox 97 97 Oxygen Delivery Method Room Air Room Air 05/02/25 10:00 05/02/25 11:00 05/02/25 11:30 Temperature 98.8 F 99.2 F H Temperature Source Core Core Pulse Rate 71 81 87 Respiratory Rate 22 H 23 H Respiratory Effort Respiratory Depth Respiratory Pattern Blood Pressure 144/69 H 183/88 H Blood Pressure Mean 94 119 Blood Pressure Source Monitor Monitor Blood Pressure Position Supine Supine Blood Pressure Location Left Arm Left Arm Pulse Ox 97 99 Oxygen Delivery Method Room Air Room Air 05/02/25 12:42 05/02/25 12:53 05/02/25 13:00 Temperature Temperature Source Pulse Rate 92 90 89 Respiratory Rate 18 18 20 H Respiratory Effort Respiratory Depth Respiratory Pattern Blood Pressure 186/93 H Blood Pressure Mean 124 Blood Pressure Source Monitor Blood Pressure Position Supine Blood Pressure Location Left Arm Pulse Ox 94 95 97 Oxygen Delivery Method Room Air Room Air Room Air 05/02/25 14:00 Temperature Temperature Source Pulse Rate 89 Respiratory Rate 22 H Respiratory Effort Respiratory Depth Respiratory Pattern Blood Pressure 176/112 H Blood Pressure Mean 133 Blood Pressure Source Monitor Blood Pressure Position Supine Blood Pressure Location Left Arm Pulse Ox 98 Oxygen Delivery Method Room Air Weight Weight: 75.4 kg Body Mass Index (BMI) 32.4 EEG Results Procedure Details EEG Procedure Details: CHALINO ARGUELLES is a 79 year old F with a past medical history of , who presents for evaluation of Electroencephalogram on DATE at TIME Physical Exam Neuro Neuro Narrative: Eyes closed and opens only with repeated urging. No gross facial droop or dysconjugacy of gaze. Repeating "yes," without any other comprehensible speech WIll turn to RS, not to left side. Will squeeze right hand, not left hand. can spontaneously move LUE. Reacting to noxious stim LLE Lab / Micro Data 05/02/25 05:54 05/02/25 05:54 Labs: Laboratory Results - last 24 hr 05/01/25 12:10: Total Creatine Kinase 187 05/01/25 14:50: Sodium 128 L, Potassium 4.0, Chloride 87 L, Carbon Dioxide 16.8 L, Anion Gap 24 H, BUN 41 H, Creatinine 1.87 H, Estim Creat Clear Calc 21.12 L, Est GFR (MDRD) Non-Af 27 L, BUN/Creatinine Ratio 21.8 H, Glucose 430 H, Lactic Acid 1.9, Calcium 9.0, Magnesium 1.7, Total Bilirubin 0.69, Direct Bilirubin 0.28, AST 26, ALT 18, Alkaline Phosphatase 61, NT pro BNP II 495, Total Protein 7.4, Albumin 4.4, Globulin 3.0, TSH 0.979, Cortisol PM Sample 104.00 H 05/01/25 15:07: MRSA (PCR) Negative 05/01/25 15:23: POC Glucose 397 H 05/01/25 16:31: POC Glucose 324 H 05/01/25 17:30: POC Glucose 222 H 05/01/25 18:39: POC Glucose 156 H 05/01/25 18:40: Sodium 135, Potassium 3.3, Chloride 100, Carbon Dioxide 20.0 L, Anion Gap 15, Phosphorus 3.1, Magnesium 1.5 05/01/25 19:33: POC Glucose 158 H 05/01/25 20:36: POC Glucose 156 H 05/01/25 21:30: POC Glucose 180 H 05/01/25 22:36: POC Glucose 179 H 05/01/25 23:20: Sodium 132 L, Potassium 3.4, Chloride 99, Carbon Dioxide 20.3 L, Anion Gap 13, Phosphorus 3.2, Magnesium 2.4 H 05/01/25 23:29: POC Glucose 172 H 05/02/25 00:37: POC Glucose 157 H 05/02/25 01:31: POC Glucose 167 H 05/02/25 02:27: POC Glucose 148 H 05/02/25 02:36: Sodium 133, Potassium 3.3, Chloride 101, Carbon Dioxide 20.5 L, Anion Gap 11, Phosphorus 3.2, Magnesium 2.2 05/02/25 03:50: POC Glucose 166 H 05/02/25 05:28: POC Glucose 157 H 05/02/25 05:54: WBC 10.3, RBC 3.47 L, Hgb 10.0 L, Hct 29.3 L, MCV 84.4, MCH 28.8, MCHC 34.1, RDW Std Deviation 38.4, RDW Coeff of José 12.6, Plt Count 193, MPV 11.3, Immature Gran % (Auto) 0.500, Neut % (Auto) 71.1 H, Lymph % (Auto) 20.0, Warren % (Auto) 7.6, Eos % (Auto) 0.5, Baso % (Auto) 0.3, Absolute Neuts (auto) 7.3, Absolute Lymphs (auto) 2.06, Nucleated RBC % 0, Sodium 134 05/02/25 05:54: Sodium 133, Potassium 3.4 05/02/25 05:54: Potassium 3.4, Chloride 102 05/02/25 05:54: Chloride 102, Carbon Dioxide 20.5 L 05/02/25 05:54: Carbon Dioxide 20.4 L, Anion Gap 12 05/02/25 05:54: Anion Gap 11, BUN 26 H, Creatinine 1.37 H, Estim Creat Clear Calc 29.21 L, Est GFR (MDRD) Non-Af 39 L, BUN/Creatinine Ratio 19.1, Glucose 160 H, Hemoglobin A1c 8.9 H, Calcium 7.6, Phosphorus 3.1, Magnesium 2.3 H, Total Bilirubin 0.48, AST 41 H, ALT 17, Alkaline Phosphatase 42, Total Protein 5.6 L, Albumin 3.4, Globulin 2.2, Albumin/Globulin Ratio 1.5, Triglycerides 141, Cholesterol 130, LDL Cholesterol, Calc 71, VLDL Cholesterol 28, HDL Cholesterol 34 L, Cholesterol/HDL Ratio 3.86, b-Hydroxybutyric mmol/L 0.0, TSH 0.576 05/02/25 06:32: POC Glucose 144 H 05/02/25 07:32: POC Glucose 147 H 05/02/25 10:53: POC Glucose 210 H Micro: Microbiology 05/02/25 08:50 Mucosa - Nasopharyngeal Respiratory Panel (PCR) - Final 05/01/25 14:20 Mucosa - Nasopharyngeal SARS-CoV-2, Influenza & RSV (PCR) - Final 05/01/25 08:35 Urine Catheter - Catheter Legionella Antigen - Final 05/01/25 08:35 Urine Catheter - Catheter Streptococcus pneumoniae Antigen (M - Final ABG Data ABG results: ABG 05/01/25 05/02/25 15:08 10:10 Specimen Type ART ART Sample Site R Radial R Radial pH 7.43 7.40 Bicarbonate Actual 19.9 L 19.8 L Total CO2 21 21 Base Excess -4 L -5 L O2 Saturation 91 L 90 L O2 % 21.0 21.0 ABG pCO2 30.0 L 32.0 L ABG pO2 58 L 57 L Germain Test Positive Positive O2 Delivery Device Not entered Not entered Vent Mode Not entered Not entered Imaging Radiology Impression Brain MRI 05/02/25 06:46 IMPRESSION: 1. No hemorrhage. 2. Acute ischemia in the right posterior cerebral artery distribution involving the right occipital lobe and portions of the posterior right thalamus. 3. Chronic microvascular ischemic changes and volume loss. Red Alert: Ischemia The critical findings in the findings and impression above were relayed directly by me by telephone to charge nurse, Nataliya Armando on 05/02/2025 at 1:40 pm Eastern standard time with readback verification. Instructions to contact the ordering or covering physician were relayed. Reading Location: [facility] Echocardiogram 05/02/25 08:11 Interpretation Summary Mild to moderate inferior and posterior hypokinesis. Estimated LVEF 55%. Stage II diastolic dysfunction. The left atrium is mildly enlarged. Mild (1+) mitral valve insufficiency. Mild (1+) tricuspid valve insufficiency. Right ventricular systolic pressure estimated to be 47 mmHg. Ordering Physician: Haim Barahona Performed By: Jennifer Rivera RDCS Active Medications Active Medications Active Medications: Current Medications Generic Name Dose Route Start Last Admin Trade Name Freq PRN Reason Stop Dose Admin Acetaminophen 650 mg 05/01/25 14:19 Acetaminophen 325 Mg Tablet PO Q6H PRN PRN Pain 1-10 Or Fever>100.7 Acetaminophen 650 mg 05/01/25 14:19 Acetaminophen 325 Mg Tablet PO Q4H PRN PRN Pain 1-10 Or Fever>99.6 Aspirin 300 mg 05/01/25 14:20 05/02/25 11:05 Aspirin 300 Mg Suppository RC Not Given DAILY [facility] Atorvastatin Calcium 40 mg 05/01/25 22:00 05/01/25 21:34 Atorvastatin Calcium 40 Mg Tablet PO Not Given QHS GUS Calamine/Phenol 1 applic 05/02/25 10:00 05/02/25 10:19 Menthol/Lanolin/Calamine/Znox 113 Gm Tube TOPICAL 1 applic BID GUS Administration Protocol Glucagon 1 mg 05/01/25 14:19 Glucagon 1 Mg/Ml Syringe IM X1 PRN Hypoglycemia Protocol Heparin Sodium (Porcine) 5,000 unit 05/01/25 22:00 05/02/25 10:19 Heparin Injection (Vial) 5,000 Unit/Ml Vial SC 5,000 unit Q12 GUS Administration Hydralazine HCl 5 mg 05/01/25 14:19 Hydralazine 20 Mg/Ml Vial IV 05/02/25 14:19 Q30M PRN maintain BP parameters with HR <60 Dextrose 250 mls @ 0 mls/hr 05/01/25 14:19 Dextrose 10%-Water IV .Q0M PRN HYPOGLYCEMIA Protocol As Directed Sodium Chloride 250 mls @ 15 mls/hr 05/01/25 14:42 IV .[id number] PRN Saline Flush Sodium Chloride 250 mls @ 15 mls/hr 05/01/25 14:42 IV .[id number] PRN Additional IVPB Infusion Potassium Chloride/Dextrose/Sod Cl 20 meq in 1,000 mls @ 125 mls/hr 05/02/25 08:10 05/02/25 12:34 IV 05/03/25 00:09 0 mls/hr .Q8H GUS Infusion Piperacillin Sod/Tazobactam 50 mls @ 12.5 mls/hr 05/02/25 22:00 Sod 3.375 gm/ Sodium Chloride IV Q8 GUS Insulin Glargine 8 unit 05/02/25 10:00 05/02/25 08:24 Insulin Glargine-Yfgn 100 Unit/Ml Pen SC 8 unit DAILY GUS Administration Insulin Human Lispro 0 unit 05/02/25 10:00 05/02/25 11:04 Insulin Lispro 100 Unit/Ml Insuln.Pen SC 4 u Q4 GUS Administration Protocol Labetalol HCl 10 - 20 mg 05/01/25 14:19 Labetalol 20 Mg/4 Ml Vial IV 05/02/25 14:19 Q10M PRN PRN maintain BP parameters with HR >/=60 Lorazepam 0.5 mg 05/02/25 11:31 05/02/25 12:04 Lorazepam 2 Mg/Ml Syringe IV 0.5 mg X1 PRN Administration MRI Nitroglycerin 0.4 mg 05/01/25 14:19 Nitroglycerin (Inpatient Use) 0.4 Mg Tab.Subl SL Q5M PRN CARDIAC/CHEST PAIN Ondansetron HCl 4 mg 05/01/25 14:19 Ondansetron 4 Mg/2 Ml Vial IV Q8H PRN PRN NAUSEA/VOMITING Risperidone 0.25 mg 05/02/25 13:32 Risperidone 0.25 Mg Tablet PO BID GUS Protocol Senna/Docusate Sodium 2 tablet 05/01/25 14:19 Senna/Docusate Sodium 1 Tablet PO BID PRN PRN Constipation Sodium Chloride 10 - 40 ml 05/01/25 14:42 05/02/25 12:05 0.9% Saline Lock 10 Ml Syringe IV 10 ml UD PRN Administration SALINE FLUSH NIHSS NIHSS Nursing Documentation NIHSS Nursing Documentation: NIHSS: Ischemic Stroke/TIA Start: 05/01/25 14:19 Text: For ICU Patients: NIH sroke scale at Status: Active presentation and every 2 hours or with change in RN caregiver Freq: [id number] Protocol: Activity Type Activity Date Activity User E-sign Co-sign Detail Recorded Client Recorded Date Recorded By Document 05/02/25 14:00 [facility] [id number] 05/02/25 14:09 [facility] 05/02/25 14:00 NIH Stroke Scale [NIHSS] A score of 0 is "normal" or asymptomatic . Total possible score is 42. Inpatient: RN or Physician to activate a stroke alert for onset of new stroke symptoms or with NIHSS increase >/= 3 points. Following change in neurological status, NIHSS will be performed per physician order or more frequently PRN. -1a. Level of Consciousness 0 - Alert; keenly responsive -1b. LOC Questions 2 - Answers NEITHER question correctly -1c. LOC Commands 2 - Performs NEITHER task correctly -4. Facial Palsy 0 - Normal symmetrical movements -9. Best Language 2 - Severe aphasia; -Total 6 Query Text:A score of 0 is "normal" or asymptomatic. Total possible score is 42 . ED: Notify Physician for NIHSS increase by > / = 3 points. Inpatient: RN or Physician to activate a stroke alert for NIHSS increase of > / = 3 points.
[2025-05-02] MEDS: proMETHazine 25 MG/ML Syringe 12.5 MG IM (16:04)
[2025-05-03] VITALS (8 sets, daily range): BP systolic 117–159; BP diastolic 63–96; PULSE 85–130; RESP 14–18; TEMP 36.6–37.1; O2SAT 94–97; BMI 32.4; BMI 31.8
[2025-05-03] MEDS: 0.9% Saline Lock 10 ML Syringe IV ×3 (04:49→22:14)
[2025-05-03] MEDS: Piperacil/Tazobactam 3.375 GM in 0.9% Normal Saline (50mL MB+) 50 ML IV (04:55)
[2025-05-03 05:57] LABS: Hematocrit 36.7 % (37-47); Hemoglobin 12.4 g/dL (12.0-15.0); Immature Granulocytes Count 0.060 X10^3/uL (0.0-0.0); Mean Corp Hgb Conc 33.8 g/dL (32-36); Mean Corpuscular Volume 85.0 fL (81-99); Mean Platelet Vol. 11.0 fl (6.2-12.0); NRBC Flagged by Analyzer 0 % (0-5); Platelet Count 255 K/mm3 (150-450); RBC Distribution Width CV 12.5 % (11.6-14.6); RBC Distribution Width SD 38.7 fl (35.1-43.9); Red Blood Count 4.32 M/mm3 (4.2-5.4); White Blood Count 11.6 K/mm3 (4.4-11.0)
[2025-05-03 06:16] LABS: Magnesium 1.8 mg/dL (1.5-2.2)
[2025-05-03 06:30] LABS: Anion Gap 14 (5-15); BUN 19 mg/dL (4-19); BUN/Creat Ratio 13.9 RATIO (10-20); Calcium,Total 8.7 mg/dL (7.6-11.0); Carbon Dioxide 23.0 mmol/L (21.0-32.0); Chloride 101 mmol/L (98-108); Estimated Creatinine Clearance 29.14 ml/min (50-250); Glucose 158 mg/dL (70-99); Potassium 2.9 mmol/L (3.3-5.1)
--- NOTE | 2025-05-03 09:08 | PCM.PN.HOSP ---
Reason for Visit Chief Complaint: Confusion, altered mental status, fever Objective Data Objective Data Vital Signs: Vital Signs Temp Pulse Resp BP Pulse Ox O2 Del Method 98.8 F 100 18 149/96 H 95 Room Air 05/03/25 08:20 05/03/25 08:20 05/03/25 08:20 05/03/25 08:20 05/03/25 08:20 05/03/25 08:20 Oxygen Delivery Method Room Air Weight: 163 lb 2.273 oz Body Mass Index (BMI) 31.8 Intake & Output: Intake and Output for Last 24 Hours 05/01/25 05/02/25 05/03/25 23:59 23:59 23:59 Intake Total 5089.34 / 5094.84 3539.88 / 3539.88 50 / 50 Output Total 2900 / 2900 3050 / 3050 300 / 300 Balance 2189.34 / 2194.84 489.88 / 489.88 -250 / -250 Lab / Micro Data 05/03/25 05:44 05/03/25 05:44 Labs: Laboratory Results - last 24 hr 05/02/25 10:53: POC Glucose 210 H 05/02/25 15:39: POC Glucose 250 H 05/02/25 18:04: POC Glucose 173 H 05/02/25 21:34: POC Glucose 88 05/03/25 02:20: POC Glucose 213 H 05/03/25 05:25: POC Glucose 152 H 05/03/25 05:44: WBC 11.6 H, RBC 4.32, Hgb 12.4, Hct 36.7 L, MCV 85.0, MCH 28.7, MCHC 33.8, RDW Std Deviation 38.7, RDW Coeff of José 12.5, Plt Count 255, MPV 11.0, Immature Gran % (Auto) 0.500, Neut % (Auto) 73.8 H, Lymph % (Auto) 16.3 L, Kemper % (Auto) 8.5, Eos % (Auto) 0.2, Baso % (Auto) 0.7, Absolute Neuts (auto) 8.5 H, Absolute Lymphs (auto) 1.88, Nucleated RBC % 0, Sodium 137, Potassium 2.9 L, Chloride 101, Carbon Dioxide 23.0, Anion Gap 14, BUN 19, Creatinine 1.36 H, Estim Creat Clear Calc 29.14 L, Est GFR (MDRD) Non-Af 39 L, BUN/Creatinine Ratio 13.9, Glucose 158 H, Calcium 8.7, Magnesium 1.8 Micro: Microbiology 05/02/25 08:50 Mucosa - Nasopharyngeal Respiratory Panel (PCR) - Final 05/01/25 14:20 Mucosa - Nasopharyngeal SARS-CoV-2, Influenza & RSV (PCR) - Final 05/01/25 08:35 Urine Catheter - Catheter Legionella Antigen - Final 05/01/25 08:35 Urine Catheter - Catheter Streptococcus pneumoniae Antigen (M - Final ABG Data ABG results: ABG 05/02/25 10:10 Specimen Type ART Sample Site R Radial pH 7.40 Bicarbonate Actual 19.8 L Total CO2 21 Base Excess -5 L O2 Saturation 90 L O2 % 21.0 ABG pCO2 32.0 L ABG pO2 57 L Germain Test Positive O2 Delivery Device Not entered Vent Mode Not entered Radiography Diagnostic Testing: Radiology Impression Brain MRI 05/02/25 06:46 IMPRESSION: 1. No hemorrhage. 2. Acute ischemia in the right posterior cerebral artery distribution involving the right occipital lobe and portions of the posterior right thalamus. 3. Chronic microvascular ischemic changes and volume loss. Red Alert: Ischemia The critical findings in the findings and impression above were relayed directly by me by telephone to charge nurse, Nataliya Armando on 05/02/2025 at 1:40 pm Eastern standard time with readback verification. Instructions to contact the ordering or covering physician were relayed. Reading Location: [id number] Echocardiogram 05/02/25 08:11 Interpretation Summary Mild to moderate inferior and posterior hypokinesis. Estimated LVEF 55%. Stage II diastolic dysfunction. The left atrium is mildly enlarged. Mild (1+) mitral valve insufficiency. Mild (1+) tricuspid valve insufficiency. Right ventricular systolic pressure estimated to be 47 mmHg. Ordering Physician: Haim Barahona Performed By: Jennifer Rivera RDCS Physical Exam Narrative Seen and examined. Overnight issues noticed. Yesterday afternoon patient was agitated. Had MRI brain which showed stroke. Patient transferred to PCU overnight. Patient is awake and talking. Sinus rhythm on the quality assurance monitor body heart rate improved 98/min. Patient was tachycardic yesterday evening. Physical exam General: Awake, verbal and communicative. Comprehension decreased. Disoriented to person and place. Remembers her age, , month and year. HEENT: Atraumatic, Normocephalic. Mostly closed eyes Oral: Oral mucosa dry no Gingival or Mucosal Lesions/ Ulcerations Neck: Supple, No JVD, Negative Carotid Bruits Chest wall/Lungs: Air entry diminished in bilateral lung bases. No crepitation/rhonchi Cardiovascular: Sinus bradycardia no M/G/R Abdomen: Bowel Sounds sluggish, Soft, Non Tender, Non-Distended : No renal angle tenderness. No suprapubic tenderness. Extremities: No edema, Capillary Refill Less than 3 Seconds Skin: No rashes, No breakdown Musculoskeletal: No Tenderness to Palpation of Joints or Extremities Neurological: Nonfocal exam, nonverbal, reflexes DTR 2/4. GCS 12 E3 V4 M5 Psych/Mental Status: Disoriented. Verbal response time is delayed Assessment & Plan Assessment/Plan (1) Fever: (2) Encephalopathy acute: (3) DKA (diabetic ketoacidoses): QUALIFIERS: Diabetes mellitus type: type 2 Diabetes mellitus complication detail: without coma Qualified Code(s): E11.10 - Type 2 diabetes mellitus with ketoacidosis without coma PLAN: Plan This is a 79 female being brought to ED in confused and disoriented state/altered mental status, lethargic and dehydrated. 1. Acute encephalopathy, possible metabolic/infectious/mixed etiology: Patient is being admitted in the ICU. Possible etiology might be suspected sepsis or DKA. Will try to treat underlying cause 05/02: Overall no improvement but patient also on Precedex drip. Try to titrate down. Plan for MRI brain today 2. Suspected sepsis but ultimately ruled out: Patient has fever, tachycardia, A-fib RVR and elevated lactate. The patient presented with suspicion of sepsis with clinical indicators of fever 100.7 Fahrenheit, tachycardia, exact focus of infection unclear with acute sepsis-related organ dysfunction as evidenced by elevated lactate, acute encephalopathy and acute on chronic kidney injury. Follow sepsis protocol with sepsis order set regards to IV fluid and broad-spectrum antibiotics. Panculture including blood culture and urine culture ordered. 05/02: Tmax 100.5 Fahrenheit yesterday afternoon morning no temperature 96.3 F on heating blanket. Urinary antigens are negative. Triple PCR for SARS-CoV-2, flu and RSV are negative. MRSA PCR negative 05/03: Initially thought of sepsis but it was more encephalopathy. Urine culture shows no growth. Urinary antigens negative. Blood culture negative for 48 hours. Discontinue IV antibiotic, Zosyn. Sepsis ruled out. 3. DKA with history of type II DM: Sepsis can masquerade as DKA. Anion gap 18, bicarb 19. VBG 7.46/mixed pCO2 29.5, 57, bicarb 21 ABG ordered. Repeat BMP and liver chemistry ordered. DKA protocol with aggressive IV fluid resuscitation, normal saline and then IV insulin drip after 2 L of bolus. Hold oral medications metformin, and sitagliptin 05/02: ABG last evening was reviewed yesterday. 7.43/30/58/21. Mild hypoxia/increased AA gradient. Anion gap closed x 2. BHG normal. TSH normal and cortisol high. A1c 8.9% 4. Expressive aphasia/numbness tingling due to acute ischemic stroke involving right occipital lobe and portion of posterior right thalamus: CT brain does not show any acute change but stable chronic changes of meningioma in anterior aspect of right frontal lobe. CTA head and neck does not show LVO but less than 50% bilateral ICA. MRI brain ordered. PT, OT, speech therapy/swallow evaluation and management, nursing NIH stroke scale, BP and glucose monitoring and control as per stroke protocol. TSH, A1c fasting lipid profile tomorrow AM. MRI brain and 2D echo with bubble contrast study ordered 05/02: Nonfocal exam. Mainly disoriented confused, not waking up. MRI brain today. Part of encephalopathy due tometabolic encephalopathy 05/03: MRI brain reviewed yesterday and today with the family. It is reported as acute ischemia in right posterior cerebral artery distribution involving right occipital lobe and portions of posterior right thalamus. No hemorrhage. Chronic microvascular ischemic changes and volume loss. This was discussed with patient's and 2 daughters in the room. Continue PT and OT. Continue aspirin and statin if patient can swallow. Neurologist recommendations reviewed. No need for permissive hypertension, goal systolic less than 130. Continue heart monitoring. 2D echo shows LA mildly enlarged. Stage II diastolic dysfunction, EF 55%. Mild MR mild TR. Lipid profile within normal limit except HDL 34. 5. Hypothyroidism: TSH and serum cortisol ordered. Resume home dose of oral levothyroxine the patient is awake and oral is permitted 05/03 TSH normal. 6. CAD/CHF: Patient does not have echo or stress test in our system. Patient on furosemide 20 mg daily, labetalol, and lisinopril at home. 2D echo is ordered for tomorrow. proBNP ordered 7. Hypertension: Blood pressure is elevated. Goal BP, SBP less than 130 mmHg 8. Acute urine retention: She had urine retention about 1100 mL in the bladder. Avila catheter was inserted. Her agitation also got better. 05/02: Draining urine Living will/advanced directive/end of life care: Patient does not have living will. The is next of kin and power of ip attorney for him. After discussion of benefits/risks procedures involved with full code, DNR CC arrest and DNR CC, the patient's opted for full code. The patient's does want artificial life support including intubation, tube feed, ventilator and/chest compression, central venous catheter, vasopressor and DC shock if needed but does not want to prolong ventilator if patient is vegetable. Total time spent in [id number] encounter in discussion of advanced directive 17 minutes. Microbiology Past 72 Hours 05/01/25 08:35 Urine Catheter - Catheter Urine Culture - Final Culture exhibits no growth. 05/01/25 08:35 Urine Catheter - Catheter Legionella Antigen - Final 05/01/25 08:35 Urine Catheter - Catheter Streptococcus pneumoniae Antigen (M - Final 05/01/25 09:45 Blood Culture (Wb) - Left Forearm Blood Culture - Preliminary No growth in 48 hours. 05/01/25 09:23 Blood Culture (Wb) - Left Forearm Blood Culture - Preliminary No growth in 48 hours. 05/02/25 08:50 Mucosa - Nasopharyngeal Respiratory Panel (PCR) - Final 05/01/25 14:20 Mucosa - Nasopharyngeal SARS-CoV-2, Influenza & RSV (PCR) - Final Laboratory Results 05/02/25 15:39: POC Glucose 250 H 05/02/25 18:04: POC Glucose 173 H 05/02/25 21:34: POC Glucose 88 05/03/25 02:20: POC Glucose 213 H 05/03/25 05:25: POC Glucose 152 H 05/03/25 05:44: WBC 11.6 H, RBC 4.32, Hgb 12.4, Hct 36.7 L, MCV 85.0, MCH 28.7, MCHC 33.8, RDW Std Deviation 38.7, RDW Coeff of José 12.5, Plt Count 255, MPV 11.0, Immature Gran % (Auto) 0.500, Neut % (Auto) 73.8 H, Lymph % (Auto) 16.3 L, Kemper % (Auto) 8.5, Eos % (Auto) 0.2, Baso % (Auto) 0.7, Absolute Neuts (auto) 8.5 H, Absolute Lymphs (auto) 1.88, Nucleated RBC % 0, Sodium 137, Potassium 2.9 L, Chloride 101, Carbon Dioxide 23.0, Anion Gap 14, BUN 19, Creatinine 1.36 H, Estim Creat Clear Calc 29.14 L, Est GFR (MDRD) Non-Af 39 L, BUN/Creatinine Ratio 13.9, Glucose 158 H, Calcium 8.7, Magnesium 1.8 05/03/25 12:20: POC Glucose 257 H Clinical Impression(s) from Imaging Studies Brain CT 05/01/25 07:49 IMPRESSION: Stable chronic changes as well as meningioma in the anterior aspect of the right frontal lobe. Stroke Alert: Stable examination The critical findings in the findings and impression above were relayed directly by me by telephone to Hiren Garber on 05/01/2025 at 8:08 am with readback verification. Reading Location: [id number] Head/Neck CTA 05/01/25 07:50 IMPRESSION: Mild atherosclerotic plaque formation at the origin of both the right and left internal carotid arteries causing less than 50% stenosis. Stroke Alert: The critical findings in the findings and impression above were relayed directly by me by telephone to Hiren Garber on 05/01/2025 at 8:12 am with readback verification. Reading Location: [id number] Chest X-Ray 05/01/25 08:45 IMPRESSION: Cardiomegaly. No acute abnormality is seen. Reading Location: [id number] Brain MRI 05/02/25 06:46 IMPRESSION: 1. No hemorrhage. 2. Acute ischemia in the right posterior cerebral artery distribution involving the right occipital lobe and portions of the posterior right thalamus. 3. Chronic microvascular ischemic changes and volume loss. Red Alert: Ischemia The critical findings in the findings and impression above were relayed directly by me by telephone to charge nurse, Nataliya Armando on 05/02/2025 at 1:40 pm Eastern standard time with readback verification. Instructions to contact the ordering or covering physician were relayed. Reading Location: [id number] Echocardiogram 05/02/25 08:11 Interpretation Summary Mild to moderate inferior and posterior hypokinesis. Estimated LVEF 55%. Stage II diastolic dysfunction. The left atrium is mildly enlarged. Mild (1+) mitral valve insufficiency. Mild (1+) tricuspid valve insufficiency. Right ventricular systolic pressure estimated to be 47 mmHg. Ordering Physician: Haim Barahona Performed By: Jennifer Rivera RDCS Charges/Coding Visit Charges Inpatient E&M: 60479 Subs Hosp L3 NIHSS NIHSS Nursing Documentation NIHSS Nursing Documentation: NIHSS: Ischemic Stroke/TIA Start: 05/01/25 14:19 Text: For ICU Patients: NIH sroke scale at Status: Active presentation and every 4 hours or with change in RN caregiver Freq: Q4H Protocol: Activity Type Activity Date Activity User E-sign Co-sign Detail Recorded Client Recorded Date Recorded By Document 05/03/25 07:30 MARKIE [id number] 05/03/25 08:19 MARKIE 05/03/25 07:30 NIH Stroke Scale [NIHSS] A score of 0 is "normal" or asymptomatic . Total possible score is 42. Inpatient: RN or Physician to activate a stroke alert for onset of new stroke symptoms or with NIHSS increase >/= 3 points. Following change in neurological status, NIHSS will be performed per physician order or more frequently PRN. -1a. Level of Consciousness 0 - Alert; keenly responsive -1b. LOC Questions 0 - Answers BOTH questions correctly -1c. LOC Commands 0 - Performs BOTH tasks correctly -2. Best Gaze 0 - Normal -3. Visual 1 - Partial hemianopia -4. Facial Palsy 0 - Normal symmetrical movements -5a. Left Arm 0 - No drift; arm holds 90 ( or 45) degrees for full 10 seconds -5b. Right Arm 0 - No drift; arm holds 90 ( or 45) degrees for full 10 seconds -6a. Left Leg 1 - Drift; leg falls by the end of 5- seconds, but does not hit bed -6b. Right Leg 0 - No drift; leg holds 30- degree position for full 5 seconds -7. Limb Ataxia 2 - Present in 2 limbs -8. Sensory 0 - Normal; no sensory loss -9. Best Language 1 - Mild-to- moderate aphasia; -10. Dysarthria 1 = Mild-to- moderate dysarthria; -11. Extinction and Inattention 0 - No abnormality -Total 6 Query Text:A score of 0 is "normal" or asymptomatic. Total possible score is 42 . ED: Notify Physician for NIHSS increase by > / = 3 points. Inpatient: RN or Physician to activate a stroke alert for NIHSS increase of > / = 3 points. Coma Scale [Assess] -Eye Opening Spontaneous -Motor Obeys Commands -Verbal Confused [Total] -Coma Scale Total 14
--- NOTE | 2025-05-03 09:38 | CASEMGMT ---
Discharge Planning A list of SNF providers including quality and resource use data and consistent with the patient's preferred geographic region, medical needs, and insurance network was created in [employer] Guide. This list was provided to the SW. Christy Paiz Discharge Planning Asst.
--- NOTE | 2025-05-03 09:47 | NURSING ---
Addendum entered by Leatha See 05/03/25 11:11: Reached Dr Perez's nurse on nurse line to request copy of home med list, nurse will fax to U fax. Original Note: x2 attempts made to call Dr Perez's nurse line to obtain medication list. Placed on hold both times, no voicemail available to leave a message.
--- NOTE | 2025-05-03 11:07 | CASEMGMT ---
Addendum entered by Renetta De Los Santos 05/03/25 14:20: Social Work The daughters are concerned about their father driving to other facilities due to the distance away from the home. The daughters and the really want the [facility] RU. TIMO discussed possible DC to a SNF if patient is not accepted at the RU. The family believes the patient needs the acute rehab. DARVIN Huitron Original Note: Social Work Therapy is recommending the RU at [facility] for the patient. TIMO spoke with the , and daughters Critsina. They were all in agreement with the patient DC to the RU. TIMO sent the referral to the RU. DARVIN Huitron
--- NOTE | 2025-05-03 11:52 | CASEMGMT ---
Discharge Planning A list of RU providers including quality and resource use data and consistent with the patient's preferred geographic region, medical needs, and insurance network was created in [employer] Guide. This list was provided to the SW. Christy Paiz Discharge Planning Asst.
[2025-05-03] MEDS: Magnesium Sulfate 2 GM in Dextrose 5%-Water (100mL Bag) 100 ML IV (12:01)
[2025-05-03] MEDS: Furosemide 20 MG/2 ML VIAL IV (12:02)
[2025-05-03] MEDS: Potassium Chloride 10mEq/100mL 10 MEQ/100 ML IV.SOLN. 100 MEQ IV BOLUS ×3 (12:02→15:31)
[2025-05-03] MEDS: Heparin Injection (Vial) 5,000 UNIT/ML VIAL 5000 UNIT SC ×2 (12:22→21:54)
[2025-05-03] MEDS: Aspirin E.C. 81 MG Tablet PO (12:23)
[2025-05-03] MEDS: Insulin Glargine-YFGN 100 UNIT/ML Pen 8 UNIT SC (12:24)
[2025-05-03] MEDS: 0.9% Normal Saline (250mL Bag) 250 ML 15 ML IV (14:02)
--- NOTE | 2025-05-03 14:07 | CASEMGMT ---
Addendum entered by Renetta De Los Santos 05/03/25 14:16: A list of acute rehab facilities was provided to the family for review. The list including quality and resource use data and consistent with the patient's preferred geographic region, medical needs, and insurance network was created in [employer] Guide. DARVIN Stark Original Note: Social Work SW spoke with the family and there 2nd choice for acute rehab is [facility] in [place]. The referral to acute rehab at [facility] has not been reviewed yet. DARVIN Huitron
--- NOTE | 2025-05-03 14:26 | CASEMGMT ---
Addendum entered by Christy Paiz 05/04/25 15:24: Pt has been accepted by [facility]. [facility] asked to cancel referral. Christy Paiz DC Planning Asst. Addendum entered by Christy Paiz 05/03/25 16:33: VM left for underwriter solicitation director (Kanchan, ) to follow up on referral. Christy Paiz DC Planning Asst. Original Note: Discharge Planning Referral sent to [facility]. Christy Paiz DC Planning Asst
--- NOTE | 2025-05-03 15:21 | ST.MBS ---
Modified Barium Swallow Patient Information Study Date: 05/03/25 Study Time: 14:10 Direct Billable Minutes: 120 Total Minutes procedure & reportin Diagnosis: DKA E11.10; AMS G93.40 Referring Physician: Haim Barahona Reason for Referral: Assess swallow function, assess risk for aspiration, and determine recommendations for least restrictive diet textures and compensatory strategies to improve swallowing safety. Medical History: The patient was brought to [facility] ED 05/01/2025 by for confusion and AMS. She was not doing well at home for the past couple of days and had vomiting 5-6X about 3 days before admission. Patient had poor po intake. In the ED, pt was febrile (100.7), tachycardic (126BPM). Stroke alert was called for expressive aphasia and pt managed for dehydration in the ED. Pt admitted for management of encephalopathy, DKA, and stroke work up. Brain MRI 05/02/2025 - "IMPRESSION: 1. No hemorrhage. 2. Acute ischemia in the right posterior cerebral artery distribution involving the right occipital lobe and portions of the posterior right thalamus. 3. Chronic microvascular ischemic changes and volume loss." ST consulted as part of CVA work up. Pt was NPO due to encephalopathy and recommended for ST evaluation prior to diet advancement. Pt okayed for po trials and ST evaluation 05/03/2025. BSE 05/03/2025 revealed coughing w/ liquids and throat clearing w/ liquids, purees, and solids. MIXING MACHINE FEEDER recommended NPO w/ meds crushed in and MBSS this afternoon to further assess risk for aspiration prior to diet advancement. Medical History (Updated 05/01/25 @ 16:28 by Tiffany Garrett) TIA (transient ischemic attack) Hypothyroidism Diabetes Congestive heart failure (CHF) Coronary artery disease Hypertension Current Diet Ordered: NPO Dentition: Natural Teeth Mental Status: Impaired (AMS and lethargic, but pt remained alert for MBSS) Respiratory Status: Oxygenating on Room Air Penetration-Aspiration Scale Penetration-Aspiration Scale: OBJECTIVE ASSESSMENT OF SWALLOW FUNCTION (QUANTITATIVE – PER TRIAL): PENETRATION / ASPIRATION SCALE (HIGH): 1 = does not enter airway 2 = enters airway/above vocal folds/ejected 3 = enters airway/above vocal folds/not ejected 4 = enters airway/contacts vocal folds/ejected 5 = enters airway/contacts vocal folds/not ejected 6 = enters airway/below vocal folds/ejected 7 = enters airway/below vocal folds/not ejected despite effort 8 = enters airway/below vocal folds/no effort VIDEOFLOROSCOPIC SCALE SCORE (HIGH): Grade I = aspiration of material that has penetrated into the laryngeal vestibule, intact cough reflex Grade II = aspiration < 10 % of the bolus, intact cough reflex Grade III = aspiration of < 10 % of the bolus, reduced cough reflex or aspiration of > 10 % of the bolus, intact cough reflex Grade IV = aspiration of > 10 % of the bolus, reduced cough reflex Penetration-Aspiration Scale Score Thin Liquid via teaspoon: Result: 2= enter airway/above vocal folds/ejected Thin Liquid via teaspoon Trial 2: Result: 2= enter airway/above vocal folds/ejected Thin Liquid via single sip: straw: Result: 2= enter airway/above vocal folds/ejected Thin Liquid via single sip: straw Trial 2: Result: 5= enters airways/contacts vocal folds/not ejected [place] Thick Liquid via teaspoon: Result: 2= enter airway/above vocal folds/ejected [place] Thick Liquid via single sip: straw: Result: 1= does not enter airway Pudding via teaspoon: Result: 1= does not enter airway Comment: Esophageal screen - Retention of entire bolus in the upper and middle esophagus. [place] Thick Liquid via single sip: straw Trial 2: Comment: No PAS score as fluoro was off during the swallow; however, laryngeal vestibule appeared clear of contrast after the swallow. [place] Thick Liquid via small single sip: cup: Result: 3= enters airways/above vocal folds/not ejected Comment: Esophageal screen - Mildly/[place] thick liquid wash was mostly effective in clearing barium pudding through the LES. [place] Thick Liquid via single sip: straw Trial 3: Result: 1= does not enter airway 1/4 Cookie: Comment: No PAS score as pt didn't clear the cookie past her lips due to pt falling asleep at the end of the study. MIXING MACHINE FEEDER cleared the cookie from her mouth and ended the study due to lethargy. Oral Phase Labial Seal: Interlabial escape, no progression to anterior lip Tongue Control During Bolus Hold: Posterior escape of less than half of bolus Bolus Preparation/Mastication: Minimal chewing/mashing with majority of bolus unchewed Bolus Transport/Lingual Motion: Repetitive/disorganized tongue motion Oral Residue: Residue collection on oral structures Pharyngeal Phase Initiation of Pharyngeal Swallow: Bolus head in pyriforms Soft Palate Elevation: Trace column of contrast/air between soft palate and pharyngeal wall Laryngeal Elevation: Partial superior movement thyroid cart/partial apprx aryt-epig petiole Anterior Hyoid Excursion: Partial anterior movement Epiglottic Movement: Complete inversion Laryngeal Vestibule Closure at Height of Swallow: Incomplete; narrow column of air/contrast in laryngeal vestibule Pharyngeal Stripping Wave: Present - complete Pharyngoesophageal Segment Opening: Complete distension and complete duration; no obstruction of flow Tongue Base Retraction: Narrow column of contrast between tongue base & post. pharyngeal wall Pharyngeal Residue: Collection of residue within or on pharyngeal structures Esophageal Phase Esophageal Clearance: Esophageal retention Diagnosis/Impression Diagnosis: Moderate oropharyngeal dysphagia R13.12; Esophageal dysphagia R13.14 MBS Impressions: Pt very lethargic upon arrival to the [facility]. MIXING MACHINE FEEDER provided oral care via toothette swabs and provided ice chips and patient's alertness improved. MBSS was ended after cookie trial due to returning lethargy. Per daughter, patient had recently participated in therapy, then she became very fatigued. The oral phase is primarily marked by... -Premature posterior loss of liquids to the pharynx prior to swallow onset, and even to the laryngeal vestibule prior to swallow onset w/ mildly thick liquids via cup. -Lingual pumping w/ A-P transport of liquids. -No initiation of A-P transport or mastication w/ 06/24 cookie as pt became lethargic at the end of the study. Of note, pt was fully awake this morning and masticated diced pears well and in a timely manner. The pharyngeal phase is primarily marked by... -Delayed swallow onset. -Mildly decreased pharyngeal motility w/ decreased TB retraction resulting in trace-mild pharyngeal residues. -Decreased airway closure during the swallow due to decreased laryngeal elevation and anterior hyoid excursion w/ laryngeal penetration of thin liquids via straw to the vocal folds w/o complete ejection and no reflexive cough (weak, delayed throat clear). Can't definitively rule out aspiration due to pt's body habitus. The esophageal phase is primarily marked by... -Retention of entire pudding bolus in the upper and middle esophagus, which mostly cleared through the LES w/ mildly thick liquid wash. Recommendations Diet: Puree Textures and Mildly Thick Liquids Comment: Medications crushed in applesauce No immediate GI consult recommended; however, repeat MBSS is recommended in the next 1-3 weeks. Recommend repeating esophageal screens. If pt continues w/ significant esophageal retention, will recommend GI consult. Compensatory Strategies: Small Bites, Small Sips, Sips by straw only (Pinch straw to ensure small, single sips), Slow Rate, Feed only when alert, Alternate bites/solids and sips/liquids (1:1 Ratio) and Sitting upright (Sit upright during and 60min after meals) Supervision: Total Feed (By staff) Recommend Repeat Modified Barium Swallow: Yes (1-3 weeks for re-assessment of risk for aspiration to consider diet advancement w/ liquids, as well as for re-assessment of esophageal phase to determine if the patient requires GI consult.) Need for Skilled Speech Therapy Services: Yes Comment: -Train the patient and family in use of strategies to decrease risk for aspiration and reflux aspiration. -Ongoing assessment of diet tolerance of recommended textures. Trials of soft solids w/ MIXING MACHINE FEEDER in upcoming sessions to consider diet advancement of food textures. Would recommend repeat MBSS prior to diet advancement of liquids. -Train the patient in oropharyngeal exercise program to improve bolus control, A-P transport, TB retraction, and airway closure (lingual resistance, lingual coordination, Betty, and CTAR). -Cognitive-linguistic assessment to set additional goals as needed to POC. Education Completed: 1. Described result of evaluation. and 2. Pt understands evaluation & agrees with goals and treatment plan. Status Active ST Patient: Active Contact Information [facility] Speech Therapy:: Essence Tilley M.A. [facility]-MIXING MACHINE FEEDER Speech-Language Pathologist [facility] [address] [place] [address] [email or web address] [phone]
--- NOTE | 2025-05-03 15:45 | CHAPLAIN ---
Type of Pastoral Visit ___ Initial Visit ___ Follow-up Visit ___ On-call Visit ___ General Patient Visit ___ Spiritual Assessment ___ Family Conference ___ Bereavement ___ Rapid Response ___ Code Blue ___ Other (describe below) Pastoral Care Referral From ___ Patient ___ Family ___ Nurse ___ Physician ___ Welder/Installer ___ Cdl Team Truck Driver ___ Other (describe below) Sacrament/Intervention ___ Active listening ___ Anointing ___ Scientologist ___ Bereavement ___ Communion ___ Graciela exploration ___ ___ Life review ___ Prayer ___ Reconciliation ___ Sacrament of Sick ___ Supportive presence ___ Wedding ___ Other (describe below) Pastoral Comments family had requested follow up visits and so this oyster picker went to this new room location; pt was out of the room for testing; spouse was in the room and support given to him; spouse is encouraged by the improvement for his ; spouse talks about his feelings and his relief; spouse expresses gratitude for the support given by oyster picker
[2025-05-04] VITALS (9 sets, daily range): BP systolic 125–146; BP diastolic 65–88; PULSE 73–79; RESP 14–18; TEMP 36.3–36.7; O2SAT 92–98; BMI 31.8; BMI 32.3
[2025-05-04 05:01] LABS: Hematocrit 32.7 % (37-47); Hemoglobin 11.1 g/dL (12.0-15.0); Immature Granulocytes Count 0.050 X10^3/uL (0.0-0.0); Mean Corp Hgb Conc 33.9 g/dL (32-36); Mean Corpuscular Volume 85.6 fL (81-99); Mean Platelet Vol. 11.7 fl (6.2-12.0); NRBC Flagged by Analyzer 0 % (0-5); Platelet Count 228 K/mm3 (150-450); RBC Distribution Width CV 12.7 % (11.6-14.6); RBC Distribution Width SD 39.3 fl (35.1-43.9); Red Blood Count 3.82 M/mm3 (4.2-5.4); White Blood Count 9.4 K/mm3 (4.4-11.0)
[2025-05-04 05:39] LABS: Anion Gap 13 (5-15); BUN 29 mg/dL (4-19); BUN/Creat Ratio 16.8 RATIO (10-20); Calcium,Total 8.8 mg/dL (7.6-11.0); Carbon Dioxide 23.6 mmol/L (21.0-32.0); Chloride 99 mmol/L (98-108); Estimated Creatinine Clearance 23.31 ml/min (50-250); Glucose 229 mg/dL (70-99); Potassium 3.1 mmol/L (3.3-5.1)
[2025-05-04] MEDS: Aspirin E.C. 81 MG Tablet PO (08:24)
[2025-05-04] MEDS: Insulin Glargine-YFGN 100 UNIT/ML Pen 8 UNIT SC (08:25)
[2025-05-04] MEDS: Heparin Injection (Vial) 5,000 UNIT/ML VIAL 5000 UNIT SC ×2 (08:25→21:09)
--- NOTE | 2025-05-04 08:48 | CASEMGMT ---
Social Work Patient scored a 0 on the PHQ9. DRAVIN Huitron
--- NOTE | 2025-05-04 11:12 | EKG12_ITS ---
Test Reason : ARRYTH Blood Pressure : */* mmHG Vent. Rate : 79 BPM Atrial Rate : 79 BPM P-R Int : 176 ms QRS Dur : 100 ms QT Int : 420 ms P-R-T Axes : 18 -35 20 degrees QTcB Int : 481 ms Sinus rhythm with occasional Premature ventricular complexes and Fusion complexes Left axis deviation Moderate voltage criteria for LVH, may be normal variant ( R in aVL , [place] product ) Nonspecific T wave abnormality Prolonged QT Abnormal ECG When compared with ECG of 04-May-2025 11:34, MANUAL COMPARISON REQUIRED DATA IS UNCONFIRMED Confirmed by SHIMON BENAVIDES, EJ ([id number]), continuity editor EMMANUEL MILLER ([id number]) on 05/07/2025 11:00:15 AM Referred By: EBONIE Confirmed By: EJ ROBINS MD
--- NOTE | 2025-05-04 13:02 | CASEMGMT ---
Social Work SW spoke with the patient and the and informed them that the patient has been accepted at the [facility] rehab unit on the 4 floor and will DC there on Wednesday. DARVIN Huitron
--- NOTE | 2025-05-04 13:07 | CASEMGMT ---
Social Work Patient is DC to [facility] acute rehab unit on Wednesday. Patient is medically ready. Green sheet in the chart. DARVIN Huitron
--- NOTE | 2025-05-04 14:25 | PN.HOSP_ITS ---
Reason for Visit Chief Complaint: Confusion, altered mental status, fever Objective Data Objective Data Vital Signs: Vital Signs Temp Pulse Resp BP Pulse Ox O2 Del Method 97.4 F L 79 16 125/77 H 92 Room Air 05/04/25 08:16 05/04/25 08:24 05/04/25 08:16 05/04/25 08:16 05/04/25 10:17 05/04/25 10:17 Oxygen Delivery Method Room Air Weight: 165 lb 12.602 oz Body Mass Index (BMI) 32.3 Intake & Output: Intake and Output for Last 24 Hours 05/02/25 05/03/25 05/04/25 23:59 23:59 23:59 Intake Total 3539.88 / 3539.88 601 / 601 Output Total 3050 / 3050 575 / 650 225 / 225 Balance 489.88 / 489.88 26 / -49 -225 / -225 Lab / Micro Data 05/04/25 04:18 05/04/25 04:18 Labs: Laboratory Results - last 24 hr 05/03/25 17:29: POC Glucose 249 H 05/03/25 21:50: POC Glucose 190 H 05/04/25 04:18: WBC 9.4, RBC 3.82 L, Hgb 11.1 L, Hct 32.7 L, MCV 85.6, MCH 29.1, MCHC 33.9, RDW Std Deviation 39.3, RDW Coeff of José 12.7, Plt Count 228, MPV 11.7, Immature Gran % (Auto) 0.500, Neut % (Auto) 70.8 H, Lymph % (Auto) 20.0, [place] % (Auto) 7.7, Eos % (Auto) 0.4, Baso % (Auto) 0.6, Absolute Neuts (auto) 6.7, Absolute Lymphs (auto) 1.88, Nucleated RBC % 0, Sodium 136, Potassium 3.1 L , Chloride 99, Carbon Dioxide 23.6, Anion Gap 13, BUN 29 H, Creatinine 1.70 H, E stim Creat Clear Calc 23.31 L, Est GFR (MDRD) Non-Af 30 L, BUN/Creatinine Ratio 16.8, Glucose 229 H, Calcium 8.8 05/04/25 06:10: POC Glucose 206 H 05/04/25 08:21: POC Glucose 195 H 05/04/25 12:59: POC Glucose 327 H Micro: Microbiology 05/01/25 08:35 Urine Catheter - Catheter Urine Culture - Final Culture exhibits no growth. 05/01/25 08:35 Urine Catheter - Catheter Legionella Antigen - Final 05/01/25 08:35 Urine Catheter - Catheter Streptococcus pneumoniae Antigen (M - Final 05/01/25 09:45 Blood Culture (Wb) - Left Forearm Blood Culture - Preliminary No growth in 48 hours. 05/01/25 09:23 Blood Culture (Wb) - Left Forearm Blood Culture - Preliminary No growth in 48 hours. 05/02/25 08:50 Mucosa - Nasopharyngeal Respiratory Panel (PCR) - Final 05/01/25 14:20 Mucosa - Nasopharyngeal SARS-CoV-2, Influenza & RSV (PCR) - Final Physical Exam Narrative Seen and examined. Patient is awake alert and oriented x 2. Intermittent confusion and disorientation. Sinus rhythm on the pipeline inspector. Physical exam General: Awake, verbal and communicative. Oriented x 2. Comprehension improved. HEENT: Atraumatic, Normocephalic. Mostly closed eyes Oral: Oral mucosa dry no Gingival or Mucosal Lesions/ Ulcerations Neck: Supple, No JVD, Negative Carotid Bruits Chest wall/Lungs: Air entry diminished in bilateral lung bases. No crepitation/rhonchi Cardiovascular: Sinus bradycardia no M/G/R Abdomen: Bowel Sounds sluggish, Soft, Non Tender, Non-Distended : No renal angle tenderness. No suprapubic tenderness. Extremities: No edema, Capillary Refill Less than 3 Seconds Skin: No rashes, No breakdown Musculoskeletal: No Tenderness to Palpation of Joints or Extremities Neurological: Nonfocal exam, nonverbal, reflexes DTR 2/4. GCS 12 E3 V4 M5 Psych/Mental Status: Intermittent disoriented. Verbal response time is delayed Assessment & Plan Assessment/Plan (1) Fever: (2) Encephalopathy acute: (3) DKA (diabetic ketoacidoses): QUALIFIERS: Diabetes mellitus complication detail: without coma D iabetes mellitus type: type 2 Qualified Code(s): E11.10 - Type 2 diabetes mellitus with ketoacidosis without coma PLAN: Plan This is a 79 female being brought to ED in confused and disoriented state/altered mental status, lethargic and dehydrated. 1. Acute encephalopathy, possible metabolic/infectious/mixed etiology: Patient is being admitted in the ICU. Possible etiology might be suspected sepsis or DKA. Will try to treat underlying cause 05/02: Overall no improvement but patient also on Precedex drip. Try to titrate down. Plan for MRI brain today 05/04: The patient's level of alertness and alertness improved. 2. Suspected sepsis but ultimately ruled out: Patient has fever, tachycardia, A-fib RVR and elevated lactate. The patient presented with suspicion of sepsis with clinical indicators of fever 100.7 Fahrenheit, tachycardia, exact focus of infection unclear with acute sepsis-related organ dysfunction as evidenced by elevated lactate, acute encephalopathy and acute on chronic kidney injury. Follow sepsis protocol with sepsis order set regards to IV fluid and broad- spectrum antibiotics. Panculture including blood culture and urine culture ordered. 05/02: Tmax 100.5 Fahrenheit yesterday afternoon morning no temperature 96.3 F on heating blanket. Urinary antigens are negative. Triple PCR for SARS-CoV-2, flu and RSV are negative. MRSA PCR negative 05/03: Initially thought of sepsis but it was more encephalopathy. Urine culture shows no growth. Urinary antigens negative. Blood culture negative for 48 hours. Discontinue IV antibiotic, Zosyn. Sepsis ruled out. 3. DKA with history of type II DM: Sepsis can masquerade as DKA. Anion gap 18, bicarb 19. VBG 7.46/mixed pCO2 29.5, 57, bicarb 21 ABG ordered. Repeat BMP and liver chemistry ordered. DKA protocol with aggressive IV fluid resuscitation, normal saline and then IV insulin drip after 2 L of bolus. Hold oral medications metformin, and sitagliptin 05/02: ABG last evening was reviewed yesterday. 7.43/30/58/21. Mild hypoxia/increased AA gradient. Anion gap closed x 2. BHG normal. TSH normal and cortisol high. A1c 8.9% 4. Expressive aphasia/numbness tingling due to acute ischemic stroke involving right occipital lobe and portion of posterior right thalamus: CT brain does not show any acute change but stable chronic changes of meningioma in anterior aspect of right frontal lobe. CTA head and neck does not show LVO but less than 50% bilateral ICA. MRI brain ordered. PT, OT, speech therapy/swallow evaluation and management, nursing NIH stroke scale, BP and glucose monitoring and control as per stroke protocol. TSH, A1c fasting lipid profile tomorrow AM. MRI brain and 2D echo with bubble contrast study ordered 05/02: Nonfocal exam. Mainly disoriented confused, not waking up. MRI brain today. Part of encephalopathy due tometabolic encephalopathy 05/03: MRI brain reviewed yesterday and today with the family. It is reported as acute ischemia in right posterior cerebral artery distribution involving right occipital lobe and portions of posterior right thalamus. No hemorrhage. Chronic microvascular ischemic changes and volume loss. This was discussed with patient's and 2 daughters in the room. Continue PT and OT. Continue aspirin and statin if patient can swallow. Neurologist recommendations reviewed. No need for permissive hypertension, goal systolic less than 130. Continue heart monitoring. 2D echo shows LA mildly enlarged. Stage II diastolic dysfunction, EF 55%. Mild MR mild TR. Lipid profile within normal limit except HDL 34. 05/04: Patient is medically ready for discharge. Discussed with Dr. Hurt. There is no bed available in acute rehab. Twelve-lead EKG ordered. Patient will be discharged to acute stroke rehab on Wednesday. 5. Hypothyroidism: TSH and serum cortisol ordered. Resume home dose of oral levothyroxine the patient is awake and oral is permitted 05/03 TSH normal. 6. CAD/CHF: Patient on furosemide 20 mg daily, labetalol, and lisinopril at home. proBNP normal. No acute issues of heart failure 7. Hypertension: Blood pressure is elevated. Goal BP, SBP less than 130 mmHg 8. Acute urine retention: She had urine retention about 1100 mL in the bladder. Avila catheter was inserted. Her agitation also got better. 05/02: Draining urine Living will/advanced directive/end of life care: Patient does not have living will. The is next of kin and power of civil litigation attorney for him. After discussion of benefits/risks procedures involved with full code, DNR CC arrest and DNR CC, the patient's opted for full code. The patient's does want artificial life support including intubation, tube feed, ventilator and/chest compression, central venous catheter, vasopressor and DC shock if needed but does not want to prolong ventilator if patient is vegetable. Microbiology Past 72 Hours 05/01/25 08:35 Urine Catheter - Catheter Urine Culture - Final Culture exhibits no growth. 05/01/25 08:35 Urine Catheter - Catheter Legionella Antigen - Final 05/01/25 08:35 Urine Catheter - Catheter Streptococcus pneumoniae Antigen (M - Final 05/01/25 09:45 Blood Culture (Wb) - Left Forearm Blood Culture - Preliminary No growth in 48 hours. 05/01/25 09:23 Blood Culture (Wb) - Left Forearm Blood Culture - Preliminary No growth in 48 hours. 05/02/25 08:50 Mucosa - Nasopharyngeal Respiratory Panel (PCR) - Final 05/01/25 14:20 Mucosa - Nasopharyngeal SARS-CoV-2, Influenza & RSV (PCR) - Final Laboratory Results 05/02/25 15:39: POC Glucose 250 H 05/02/25 18:04: POC Glucose 173 H 05/02/25 21:34: POC Glucose 88 05/03/25 02:20: POC Glucose 213 H 05/03/25 05:25: POC Glucose 152 H 05/03/25 05:44: WBC 11.6 H, RBC 4.32, Hgb 12.4, Hct 36.7 L, MCV 85.0, MCH 28.7, MCHC 33.8, RDW Std Deviation 38.7, RDW Coeff of José 12.5, Plt Count 255, MPV 11.0, Immature Gran % (Auto) 0.500, Neut % (Auto) 73.8 H, Lymph % (Auto) 16.3 L, [place] % (Auto) 8.5, Eos % (Auto) 0.2, Baso % (Auto) 0.7, Absolute Neuts (auto) 8.5 H, Absolute Lymphs (auto) 1.88, Nucleated RBC % 0, Sodium 137, Potassium 2.9 L, Chloride 101, Carbon Dioxide 23.0, Anion Gap 14, BUN 19, Creatinine 1.36 H, E stim Creat Clear Calc 29.14 L, Est GFR (MDRD) Non-Af 39 L, BUN/Creatinine Ratio 13.9, Glucose 158 H, Calcium 8.7, Magnesium 1.8 05/03/25 12:20: POC Glucose 257 H Clinical Impression(s) from Imaging Studies Brain CT 05/01/25 07:49 IMPRESSION: Stable chronic changes as well as meningioma in the anterior aspect of the right frontal lobe. Stroke Alert: Stable examination The critical findings in the findings and impression above were relayed directly by me by telephone to Hiren Garber on 05/01/2025 at 8:08 am with readback verification. Reading Location: [facility] Head/Neck CTA 05/01/25 07:50 IMPRESSION: Mild atherosclerotic plaque formation at the origin of both the right and left internal carotid arteries causing less than 50% stenosis. Stroke Alert: The critical findings in the findings and impression above were relayed directly by me by telephone to Hiren Garber on 05/01/2025 at 8:12 am with readback verification. Reading Location: [facility] Chest X-Ray 05/01/25 08:45 IMPRESSION: Cardiomegaly. No acute abnormality is seen. Reading Location: [facility] Brain MRI 05/02/25 06:46 IMPRESSION: 1. No hemorrhage. 2. Acute ischemia in the right posterior cerebral artery distribution involving the right occipital lobe and portions of the posterior right thalamus. 3. Chronic microvascular ischemic changes and volume loss. Red Alert: Ischemia The critical findings in the findings and impression above were relayed directly by me by telephone to charge nurse, Nataliya Armando on 05/02/2025 at 1:40 pm Eastern standard time with readback verification. Instructions to contact the ordering or covering physician were relayed. Reading Location: [id number] Echocardiogram 05/02/25 08:11 Interpretation Summary Mild to moderate inferior and posterior hypokinesis. Estimated LVEF 55%. Stage II diastolic dysfunction. The left atrium is mildly enlarged. Mild (1+) mitral valve insufficiency. Mild (1+) tricuspid valve insufficiency. Right ventricular systolic pressure estimated to be 47 mmHg. Ordering Physician: Haim Barahona Performed By: Jennifer Rivera RDCS Charges/Coding Visit Charges Inpatient E&M: 56986 Subs Hosp L2 NIHSS NIHSS Nursing Documentation NIHSS Nursing Documentation: NIHSS: Ischemic Stroke/TIA Start: 05/01/25 14:19 Text: For ICU Patients: NIH sroke scale at Status: Complete presentation and every 4 hours or with change in RN caregiver Freq: Q4H Protocol: Activity Type Activity Date Activity User E-sign Co-sign Detail Recorded Client Recorded Date Recorded By Document 05/03/25 16:40 [id number] 05/03/25 16:42 05/03/25 16:40 NIH Stroke Scale [NIHSS] A score of 0 is "normal" or asymptomatic . Total possible score is 42. Inpatient: RN or Physician to activate a stroke alert for onset of new stroke symptoms or with NIHSS increase >/= 3 points. Following change in neurological status, NIHSS will be performed per physician order or more frequently PRN. -1a. Level of Consciousness 0 - Alert; keenly responsive -1b. LOC Questions 0 - Answers BOTH questions correctly -1c. LOC Commands 0 - Performs BOTH tasks correctly -2. Best Gaze 0 - Normal -3. Visual 1 - Partial hemianopia -4. Facial Palsy 0 - Normal symmetrical movements -5a. Left Arm 0 - No drift; arm holds 90 ( or 45) degrees for full 10 seconds -5b. Right Arm 0 - No drift; arm holds 90 ( or 45) degrees for full 10 seconds -6a. Left Leg 1 - Drift; leg falls by the end of 5- seconds, but does not hit bed -6b. Right Leg 0 - No drift; leg holds 30- degree position for full 5 seconds -7. Limb Ataxia 1 - Present in 1 limb -8. Sensory 0 - Normal; no sensory loss -9. Best Language 1 - Mild-to- moderate aphasia; -10. Dysarthria 0 - Normal -11. Extinction and Inattention 0 - No abnormality -Total 4 Query Text:A score of 0 is "normal" or asymptomatic. Total possible score is 42 . ED: Notify Physician for NIHSS increase by > / = 3 points. Inpatient: RN or Physician to activate a stroke alert for NIHSS increase of > / = 3 points. Coma Scale [Assess] -Eye Opening Spontaneous -Motor Obeys Commands -Verbal Oriented [Total] -Coma Scale Total 15
[2025-05-05] VITALS (9 sets, daily range): BP systolic 106–152; BP diastolic 67–92; PULSE 72–82; RESP 16–17; TEMP 36.4–36.9; O2SAT 93–97; BMI 32.3; BMI 32.6
[2025-05-05 07:17] LABS: Anion Gap 13 (5-15); BUN 30 mg/dL (4-19); BUN/Creat Ratio 19.1 RATIO (10-20); Calcium,Total 9.1 mg/dL (7.6-11.0); Carbon Dioxide 23.5 mmol/L (21.0-32.0); Chloride 101 mmol/L (98-108); Estimated Creatinine Clearance 25.42 ml/min (50-250); Glucose 144 mg/dL (70-99); Potassium 3.1 mmol/L (3.3-5.1)
[2025-05-05] MEDS: Heparin Injection (Vial) 5,000 UNIT/ML VIAL 5000 UNIT SC ×2 (09:48→21:14)
[2025-05-05] MEDS: Aspirin E.C. 81 MG Tablet PO (09:48)
[2025-05-05] MEDS: Insulin Glargine-YFGN 100 UNIT/ML Pen 8 UNIT SC (09:49)
--- NOTE | 2025-05-05 13:28 | PN.HOSP_ITS ---
Reason for Visit Chief Complaint: Confusion, altered mental status, fever Objective Data Objective Data Vital Signs: Vital Signs Temp Pulse Resp BP Pulse Ox O2 Del Method 98.4 F 82 16 108/67 97 Room Air 05/05/25 09:00 05/05/25 09:48 05/05/25 09:00 05/05/25 09:00 05/05/25 09:00 05/05/25 10:00 Oxygen Delivery Method Room Air Weight: 167 lb 5.294 oz Body Mass Index (BMI) 32.6 Intake & Output: Intake and Output for Last 24 Hours 05/03/25 05/04/25 05/05/25 23:59 23:59 23:59 Intake Total 601 / 601 100 / 100 Output Total 575 / 650 225 / 225 Balance 26 / -49 -225 / -225 100 / 100 Lab / Micro Data 05/04/25 04:18 05/05/25 05:13 Labs: Laboratory Results - last 24 hr 05/04/25 17:48: POC Glucose 329 H 05/04/25 21:05: POC Glucose 200 H 05/05/25 05:13: Sodium 137, Potassium 3.1 L, Chloride 101, Carbon Dioxide 23.5, Anion Gap 13, BUN 30 H, Creatinine 1.58 H, Estim Creat Clear Calc 25.42 L, Est GFR (MDRD) Non-Af 33 L, BUN/Creatinine Ratio 19.1, Glucose 144 H, Calcium 9.1 05/05/25 06:54: POC Glucose 149 H 05/05/25 12:35: POC Glucose 335 H Micro: Microbiology 05/01/25 08:35 Urine Catheter - Catheter Urine Culture - Final Culture exhibits no growth. 05/01/25 08:35 Urine Catheter - Catheter Legionella Antigen - Final 05/01/25 08:35 Urine Catheter - Catheter Streptococcus pneumoniae Antigen (M - Final 05/01/25 09:45 Blood Culture (Wb) - Left Forearm Blood Culture - Preliminary No growth in 48 hours. 05/01/25 09:23 Blood Culture (Wb) - Left Forearm Blood Culture - Preliminary No growth in 48 hours. 05/02/25 08:50 Mucosa - Nasopharyngeal Respiratory Panel (PCR) - Final 05/01/25 14:20 Mucosa - Nasopharyngeal SARS-CoV-2, Influenza & RSV (PCR) - Final Physical Exam Narrative Seen and examined. No acute issues. Late afternoon/evening, patient gets intermittently confused and disoriented but sometimes agitated. I talked to the patient's Sinus rhythm on the surveillance system monitor. Physical exam General: Awake, verbal and communicative. Oriented x 2. Comprehension improved. HEENT: Atraumatic, Normocephalic. Mostly closed eyes Oral: Oral mucosa dry no Gingival or Mucosal Lesions/ Ulcerations Neck: Supple, No JVD, Negative Carotid Bruits Chest wall/Lungs: Air entry diminished in bilateral lung bases. No crepitation/rhonchi Cardiovascular: Sinus bradycardia no M/G/R Abdomen: Bowel Sounds normal, Soft, Non Tender, Non-Distended : No renal angle tenderness. No suprapubic tenderness. Extremities: No edema, Capillary Refill Less than 3 Seconds Skin: No rashes, No breakdown Musculoskeletal: No Tenderness to Palpation of Joints or Extremities Neurological: Nonfocal exam, nonverbal, reflexes DTR 2/4. GCS 12 E3 V4 M5 Psych/Mental Status: Intermittent disoriented. Verbal response time is delayed Assessment & Plan Assessment/Plan (1) Fever: (2) Encephalopathy acute: (3) DKA (diabetic ketoacidoses): QUALIFIERS: Diabetes mellitus complication detail: without coma D iabetes mellitus type: type 2 Qualified Code(s): E11.10 - Type 2 diabetes mellitus with ketoacidosis without coma PLAN: Plan This is a 79 female being brought to ED in confused and disoriented state/altered mental status, lethargic and dehydrated. 1. Acute encephalopathy, possible metabolic/infectious/mixed etiology: Patient is being admitted in the ICU. Possible etiology might be suspected sepsis or DKA. Will try to treat underlying cause 05/02: Overall no improvement but patient also on Precedex drip. Try to titrate down. Plan for MRI brain today 05/04: The patient's level of alertness and alertness improved. 05/05: Patient still gets intermittent confusion and disorientation and sometimes does not follow commands or does not understand. Probably chronic 2. Suspected sepsis but ultimately ruled out: Patient has fever, tachycardia, A-fib RVR and elevated lactate. The patient presented with suspicion of sepsis with clinical indicators of fever 100.7 Fahrenheit, tachycardia, exact focus of infection unclear with acute sepsis-related organ dysfunction as evidenced by elevated lactate, acute encephalopathy and acute on chronic kidney injury. Follow sepsis protocol with sepsis order set regards to IV fluid and broad- spectrum antibiotics. Panculture including blood culture and urine culture ordered. 05/02: Tmax 100.5 Fahrenheit yesterday afternoon morning no temperature 96.3 F on heating blanket. Urinary antigens are negative. Triple PCR for SARS-CoV-2, flu and RSV are negative. MRSA PCR negative 05/03: Initially thought of sepsis but it was more encephalopathy. Urine culture shows no growth. Urinary antigens negative. Blood culture negative for 48 hours. Discontinue IV antibiotic, Zosyn. Sepsis ruled out. 3. DKA with history of type II DM: Sepsis can masquerade as DKA. Anion gap 18, bicarb 19. VBG 7.46/mixed pCO2 29.5, 57, bicarb 21 ABG ordered. Repeat BMP and liver chemistry ordered. DKA protocol with aggressive IV fluid resuscitation, normal saline and then IV insulin drip after 2 L of bolus. Hold oral medications metformin, and sitagliptin 05/02: ABG last evening was reviewed yesterday. 7.43/30/58/21. Mild hypoxia/increased AA gradient. Anion gap closed x 2. BHG normal. TSH normal and cortisol high. A1c 8.9% 4. Expressive aphasia/numbness tingling due to acute ischemic stroke involving right occipital lobe and portion of posterior right thalamus: CT brain does not show any acute change but stable chronic changes of meningioma in anterior aspect of right frontal lobe. CTA head and neck does not show LVO but less than 50% bilateral ICA. MRI brain ordered. PT, OT, speech therapy/swallow evaluation and management, nursing NIH stroke scale, BP and glucose monitoring and control as per stroke protocol. TSH, A1c fasting lipid profile tomorrow AM. MRI brain and 2D echo with bubble contrast study ordered 05/02: Nonfocal exam. Mainly disoriented confused, not waking up. MRI brain today. Part of encephalopathy due tometabolic encephalopathy 05/03: MRI brain reviewed yesterday and today with the family. It is reported as acute ischemia in right posterior cerebral artery distribution involving right occipital lobe and portions of posterior right thalamus. No hemorrhage. Chronic microvascular ischemic changes and volume loss. This was discussed with patient's and 2 daughters in the room. Continue PT and OT. Continue aspirin and statin if patient can swallow. Neurologist recommendations reviewed. No need for permissive hypertension, goal systolic less than 130. Continue heart monitoring. 2D echo shows LA mildly enlarged. Stage II diastolic dysfunction, EF 55%. Mild MR mild TR. Lipid profile within normal limit except HDL 34. 05/04: Patient is medically ready for discharge. Discussed with Dr. Calle. There is no bed available in acute rehab. Twelve-lead EKG ordered. Patient will be discharged to acute stroke rehab on Wednesday. 05/05: 12 lead ECG done today and reviewed. NSR, occasional PVCs and fusion complexes, LAD, moderate voltage criteria for LVH. No significant change from previous EKG. 30-day event monitor. Discharge tomorrow. 5. Hypothyroidism: TSH and serum cortisol ordered. Resume home dose of oral levothyroxine the patient is awake and oral is permitted 05/03 TSH normal. 6. CAD/CHF: Patient on furosemide 20 mg daily, labetalol, and lisinopril at home. proBNP normal. No acute issues of heart failure 7. Hypertension: Blood pressure is elevated. Goal BP, SBP less than 130 mmHg 8. Acute urine retention: She had urine retention about 1100 mL in the bladder. Avila catheter was inserted. Her agitation also got better. 05/02: Draining urine Living will/advanced directive/end of life care: Patient does not have living will. The is next of kin and power of assistant prosecuting attorney for him. After discussion of benefits/risks procedures involved with full code, DNR CC arrest and DNR CC, the patient's opted for full code. The patient's does want artificial life support including intubation, tube feed, ventilator and/chest compression, central venous catheter, vasopressor and DC shock if needed but does not want to prolong ventilator if patient is vegetable. Microbiology Past 72 Hours 05/01/25 08:35 Urine Catheter - Catheter Urine Culture - Final Culture exhibits no growth. 05/01/25 08:35 Urine Catheter - Catheter Legionella Antigen - Final 05/01/25 08:35 Urine Catheter - Catheter Streptococcus pneumoniae Antigen (M - Final 05/01/25 09:45 Blood Culture (Wb) - Left Forearm Blood Culture - Preliminary No growth in 48 hours. 05/01/25 09:23 Blood Culture (Wb) - Left Forearm Blood Culture - Preliminary No growth in 48 hours. 05/02/25 08:50 Mucosa - Nasopharyngeal Respiratory Panel (PCR) - Final Laboratory Results 05/04/25 17:48: POC Glucose 329 H 05/04/25 21:05: POC Glucose 200 H 05/05/25 05:13: Sodium 137, Potassium 3.1 L, Chloride 101, Carbon Dioxide 23.5, Anion Gap 13, BUN 30 H, Creatinine 1.58 H, Estim Creat Clear Calc 25.42 L, Est GFR (MDRD) Non-Af 33 L, BUN/Creatinine Ratio 19.1, Glucose 144 H, Calcium 9.1 05/05/25 06:54: POC Glucose 149 H 05/05/25 12:35: POC Glucose 335 H Clinical Impression(s) from Imaging Studies Brain CT 05/01/25 07:49 IMPRESSION: Stable chronic changes as well as meningioma in the anterior aspect of the right frontal lobe. Stroke Alert: Stable examination The critical findings in the findings and impression above were relayed directly by me by telephone to Hiren Garber on 05/01/2025 at 8:08 am with readback verification. Reading Location: [facility] Head/Neck CTA 05/01/25 07:50 IMPRESSION: Mild atherosclerotic plaque formation at the origin of both the right and left internal carotid arteries causing less than 50% stenosis. Stroke Alert: The critical findings in the findings and impression above were relayed directly by me by telephone to Hiren Garber on 05/01/2025 at 8:12 am with readback verification. Reading Location: [facility] Chest X-Ray 05/01/25 08:45 IMPRESSION: Cardiomegaly. No acute abnormality is seen. Reading Location: [facility] Brain MRI 05/02/25 06:46 IMPRESSION: 1. No hemorrhage. 2. Acute ischemia in the right posterior cerebral artery distribution involving the right occipital lobe and portions of the posterior right thalamus. 3. Chronic microvascular ischemic changes and volume loss. Red Alert: Ischemia The critical findings in the findings and impression above were relayed directly by me by telephone to charge nurse, Nataliya Armando on 05/02/2025 at 1:40 pm Eastern standard time with readback verification. Instructions to contact the ordering or covering physician were relayed. Reading Location: [id number] Echocardiogram 05/02/25 08:11 Interpretation Summary Mild to moderate inferior and posterior hypokinesis. Estimated LVEF 55%. Stage II diastolic dysfunction. The left atrium is mildly enlarged. Mild (1+) mitral valve insufficiency. Mild (1+) tricuspid valve insufficiency. Right ventricular systolic pressure estimated to be 47 mmHg. Ordering Physician: Haim Barahona Performed By: Jennifer Rivera RDCS Charges/Coding Visit Charges Inpatient E&M: 41689 Subs Hosp L2 NIHSS NIHSS Nursing Documentation NIHSS Nursing Documentation: NIHSS: Ischemic Stroke/TIA Start: 05/01/25 14:19 Text: For ICU Patients: NIH sroke scale at Status: Complete presentation and every 4 hours or with change in RN caregiver Freq: Q4H Protocol: Activity Type Activity Date Activity User E-sign Co-sign Detail Recorded Client Recorded Date Recorded By Document 05/03/25 16:40 [id number] 05/03/25 16:42 05/03/25 16:40 NIH Stroke Scale [NIHSS] A score of 0 is "normal" or asymptomatic . Total possible score is 42. Inpatient: RN or Physician to activate a stroke alert for onset of new stroke symptoms or with NIHSS increase >/= 3 points. Following change in neurological status, NIHSS will be performed per physician order or more frequently PRN. -1a. Level of Consciousness 0 - Alert; keenly responsive -1b. LOC Questions 0 - Answers BOTH questions correctly -1c. LOC Commands 0 - Performs BOTH tasks correctly -2. Best Gaze 0 - Normal -3. Visual 1 - Partial hemianopia -4. Facial Palsy 0 - Normal symmetrical movements -5a. Left Arm 0 - No drift; arm holds 90 ( or 45) degrees for full 10 seconds -5b. Right Arm 0 - No drift; arm holds 90 ( or 45) degrees for full 10 seconds -6a. Left Leg 1 - Drift; leg falls by the end of 5- seconds, but does not hit bed -6b. Right Leg 0 - No drift; leg holds 30- degree position for full 5 seconds -7. Limb Ataxia 1 - Present in 1 limb -8. Sensory 0 - Normal; no sensory loss -9. Best Language 1 - Mild-to- moderate aphasia; -10. Dysarthria 0 - Normal -11. Extinction and Inattention 0 - No abnormality -Total 4 Query Text:A score of 0 is "normal" or asymptomatic. Total possible score is 42 . ED: Notify Physician for NIHSS increase by > / = 3 points. Inpatient: RN or Physician to activate a stroke alert for NIHSS increase of > / = 3 points. Coma Scale [Assess] -Eye Opening Spontaneous -Motor Obeys Commands -Verbal Oriented [Total] -Coma Scale Total 15
[2025-05-05] MEDS: Potassium Chloride Oral Tablet 20 MEQ 40 MEQ PO (14:58)
[2025-05-06 03:50] VITALS: BP 113/86; PULSE 84; RESP 18; TEMP 36.5; O2SAT 95
[2025-05-06 05:21] VITALS: BMI 32.6
[2025-05-06 08:50] VITALS: BP 162/85; PULSE 86; RESP 16; TEMP 36.5; O2SAT 94
[2025-05-06] MEDS: Aspirin E.C. 81 MG Tablet PO (09:04)
[2025-05-06] MEDS: Potassium Chloride Oral Tablet 20 MEQ 40 MEQ PO (09:04)
[2025-05-06 09:05] VITALS: BP 162/85; PULSE 86
[2025-05-06] MEDS: Heparin Injection (Vial) 5,000 UNIT/ML VIAL 5000 UNIT SC (09:06)
--- NOTE | 2025-05-06 10:29 | PCM.DC ---
Discharge Instructions DC O2, CPAP, BIPAP needs Home O2 Discharge instructions: No Dressing / Incision Discharge Activity: Return to Normal Activity Weight Bearing Status: Weight bearing as tolerated Dressing / Incision Call your doctor if you observe: Fever of 101 or Higher, Coldness, Increased Pain, Numbness or Tingling, Change in Color, Inability to urinate, Inability to have a bowel movement, Shortness of breath, Dizziness, Fainting spells, Swelling in the ankles, Chest pain, Prolonged hiccupping, Increased palpitations (irregular heartbeat) and Calf discomfort Follow Up Care When: IN 2 WEEKS Test Results: Test results from this visit will be discussed in further detail at your follow-up appointment, if applicable. Discharge Plan Admission Admit Date/Time: 05/01/25 13:19 Primary Reason for Your Visit: Acute stroke Attending Provider: Haim Barahona Primary Care Provider: Micky Perez Consulting Providers: Cheri Gusman; Ana Duran; David Lockwood; Chelo Leavitt; Karuna Barron; Reina Duncan; Maikel Jones; Altaf Juarez; ANTHONY HAGAN; Supa Mcfadden; Xuan Evans Discharge Orders/Prescriptions Prescriptions: New atorvastatin 40 mg Tablet 40 mg PO QHS Qty: 0 0RF acetaminophen 325 mg Tablet 650 mg PO Q6H PRN PRN (Reason: Pain 1-10 Or Fever>100.7) Qty: 0 0RF sennosides-docusate sodium [Stimulant Laxative Plus] 8.6-50 mg Tablet 2 tab PO BID PRN PRN (Reason: Constipation) Qty: 0 0RF risperidone 0.25 mg Tablet 0.25 mg PO BID Qty: 0 0RF potassium chloride 20 mEq Tablet,Er Particles/Crystals 40 meq PO DAILYCM 2 Days Qty: 4 0RF Continued labetalol 200 mg tablet 600 mg PO BID hydralazine 25 mg tablet 25 mg PO 4X/DAY levothyroxine 75 mcg tablet 75 mcg PO Patient Comments: 75 mcg daily and 150 mcg Wednesday Rx Instructions: 75 mcg orally Wed-Wed, and two on Wednesday metformin 1,000 mg tablet 1,000 mg PO BID lisinopril 30 mg tablet 30 mg PO BID furosemide 20 mg tablet 20 mg PO DAILY Januvia 100 mg tablet 100 mg PO DAILY glimepiride 4 mg tablet 4 mg PO BID aspirin [Adult Aspirin Regimen] 81 mg tablet,delayed release (DR/EC) 81 mg PO DAILY cholecalciferol (vitamin D3) 25 mcg (1,000 unit) capsule 25 mcg PO DAILY Other Ambulatory Orders: 30 Day Event Recorder Preventi (Routine) Timeframe: 1 Month Facility: [facility] - Location: Cardiovascular Services Ordered By: Dr. Haim Barahona Referrals / Follow Up: Micky Preez MD [Primary Care Provider, Family Practice] David Grande MD [Non-Staff -Ordering Privileges, Neurology] - Within 1 Month Poncho Caballero DO [Med Staff - Admissions Specialist, Psychiatry] - Within 1 Month Referral Note: For possible dementia Disposition Disposition (needs filled in before D/C Order can be placed): Inpatient Rehab Unit/Facility
[2025-05-06] MEDS: Insulin Glargine-YFGN 100 UNIT/ML Pen 8 UNIT SC (10:55)
--- NOTE | 2025-05-06 11:31 | DS.PCM_ITS ---
Providers Date of Admission: 05/01/25 Date of Discharge: 05/06/25 Primary Care Physician: Dr. Micky Perez MD Consultations 05/01/25 14:19 Consult: Auto [employer] / Pulmonary Medicine Routine Consulting Provider: Intensivists/Pulmonary Med Reason for Consult: suspectd sepsis EMERGENT Consult: No Notified: Yes Date Notified: 05/01/25 Time Notified: 13:41 Method of Notification: Text Consult: Tele-Neurology Routine Consulting Provider: [facility] Reason for Consult: Acute Ischemic Stroke/TIA EMERGENT Consult: No Notified: Yes Date Notified: 05/01/25 Time Notified: 15:09 Method of Notification: Answering Service Method of Consult:: Telemedicine Nursing Unit Staff Notify [facility] of Tele-Neurology Consult: Yes Reason For Visit: FEVER, CONFUSED, APHASIA Diagnosis Discharge Diagnosis (1) Fever: Status: Acute Code(s): R50.9 - Fever, unspecified (2) Encephalopathy acute: Status: Acute Code(s): G93.40 - Encephalopathy, unspecified (3) DKA (diabetic ketoacidoses): Status: Acute Code(s): E11.10 - Type 2 diabetes mellitus with ketoacidosis without coma Qualifiers: Diabetes mellitus type: type 2 Diabetes mellitus complication detail: w ithout coma Qualified Code(s): E11.10 - Type 2 diabetes mellitus with ketoacidosis without coma Plan This is a 79 female being brought to ED in confused and disoriented state/altered mental status, lethargic and dehydrated. 1. Acute encephalopathy, possible metabolic/infectious/mixed etiology: Patient is being admitted in the ICU. Possible etiology might be suspected sepsis or DKA. Will try to treat underlying cause 05/02: Overall no improvement but patient also on Precedex drip. Try to titrate down. Plan for MRI brain today 05/04: The patient's level of alertness and alertness improved. 05/05: Patient still gets intermittent confusion and disorientation and sometimes does not follow commands or does not understand. Probably chronic 05/06: Sometimes patient is spaced out/memory lapses. Advised follow-up with the psychiatrist Dr. Caballero in a month time. Acute encephalopathy resolved. 2. Suspected sepsis but ultimately ruled out: Patient has fever, tachycardia, A-fib RVR and elevated lactate. The patient presented with suspicion of sepsis with clinical indicators of fever 100.7 Fahrenheit, tachycardia, exact focus of infection unclear with acute sepsis-related organ dysfunction as evidenced by elevated lactate, acute encephalopathy and acute on chronic kidney injury. Follow sepsis protocol with sepsis order set regards to IV fluid and broad- spectrum antibiotics. Panculture including blood culture and urine culture ordered. 05/02: Tmax 100.5 Fahrenheit yesterday afternoon morning no temperature 96.3 F on heating blanket. Urinary antigens are negative. Triple PCR for SARS-CoV-2, flu and RSV are negative. MRSA PCR negative 05/03: Initially thought of sepsis but it was more encephalopathy. Urine culture shows no growth. Urinary antigens negative. Blood culture negative for 48 hours. Discontinue IV antibiotic, Zosyn. Sepsis ruled out. 3. DKA with history of type II DM: Sepsis can masquerade as DKA. Anion gap 18, bicarb 19. VBG 7.46/mixed pCO2 29.5, 57, bicarb 21 ABG ordered. Repeat BMP and liver chemistry ordered. DKA protocol with aggressive IV fluid resuscitation, normal saline and then IV insulin drip after 2 L of bolus. Hold oral medications metformin, and sitagliptin 05/02: ABG last evening was reviewed yesterday. 7.43/30/58/21. Mild hypoxia/increased AA gradient. Anion gap closed x 2. BHG normal. TSH normal and cortisol high. A1c 8.9%. DKA resolved on 05/02 4. Expressive aphasia/numbness tingling due to acute ischemic stroke involving right occipital lobe and portion of posterior right thalamus: CT brain does not show any acute change but stable chronic changes of meningioma in anterior aspect of right frontal lobe. CTA head and neck does not show LVO but less than 50% bilateral ICA. MRI brain ordered. PT, OT, speech therapy/swallow evaluation and management, nursing NIH stroke scale, BP and glucose monitoring and control as per stroke protocol. TSH, A1c fasting lipid profile tomorrow AM. MRI brain and 2D echo with bubble contrast study ordered 05/02: Nonfocal exam. Mainly disoriented confused, not waking up. MRI brain today. Part of encephalopathy due tometabolic encephalopathy 05/03: MRI brain reviewed yesterday and today with the family. It is reported as acute ischemia in right posterior cerebral artery distribution involving right occipital lobe and portions of posterior right thalamus. No hemorrhage. Chronic microvascular ischemic changes and volume loss. This was discussed with patient's and 2 daughters in the room. Continue PT and OT. Continue aspirin and statin if patient can swallow. Neurologist recommendations reviewed. No need for permissive hypertension, goal systolic less than 130. Continue heart monitoring. 2D echo shows LA mildly enlarged. Stage II diastolic dysfunction, EF 55%. Mild MR mild TR. Lipid profile within normal limit except HDL 34. 05/04: Patient is medically ready for discharge. Discussed with Dr. Calle. There is no bed available in acute rehab. Twelve-lead EKG ordered. Patient will be discharged to acute stroke rehab on Wednesday. 05/05: 12 lead ECG done today and reviewed. NSR, occasional PVCs and fusion complexes, LAD, moderate voltage criteria for LVH. No significant change from previous EKG. 30-day event monitor. Discharge tomorrow. 05/06: Patient is discharged. On aspirin andstatin. Continue PT OT on speech evaluation and treatment in acute rehab 5. Hypothyroidism: TSH and serum cortisol ordered. Resume home dose of oral levothyroxine the patient is awake and oral is permitted 05/03 TSH normal. 6. CAD/CHF: Patient on furosemide 20 mg daily, labetalol, and lisinopril at home. proBNP normal. No acute issues of heart failure 7. Hypertension: Blood pressure is elevated. Goal BP, SBP less than 130 mmHg 8. Acute urine retention: She had urine retention about 1100 mL in the bladder. Avila catheter was inserted. Her agitation also got better. 05/02: Draining urine Living will/advanced directive/end of life care: Patient does not have living will. The is next of kin and power of kst operator for him. After discussion of benefits/risks procedures involved with full code, DNR CC arrest and DNR CC, the patient's opted for full code. The patient's does want artificial life support including intubation, tube feed, ventilator and/chest compression, central venous catheter, vasopressor and DC shock if needed but does not want to prolong ventilator if patient is vegetable. Discharge medication reconciliation done. Discharge follow-up instructions completed. Discharge process discussed with the patient and all questions were answered to patient's satisfaction. Follow with PCP in 1 to 2 weeks Total time spent, exact 35 minutes on discharge meds reconciliation, examination, coordination of care with nurses and ancillary staff, review of imaging and blood test and discussion with the patient on follow-up instructions. Microbiology Past 72 Hours 05/01/25 08:35 Urine Catheter - Catheter Urine Culture - Final Culture exhibits no growth. 05/01/25 08:35 Urine Catheter - Catheter Legionella Antigen - Final 05/01/25 08:35 Urine Catheter - Catheter Streptococcus pneumoniae Antigen (M - Final 05/01/25 09:45 Blood Culture (Wb) - Left Forearm Blood Culture - Preliminary No growth in 48 hours. 05/01/25 09:23 Blood Culture (Wb) - Left Forearm Blood Culture - Preliminary No growth in 48 hours. 05/02/25 08:50 Mucosa - Nasopharyngeal Respiratory Panel (PCR) - Final Laboratory Results 05/04/25 17:48: POC Glucose 329 H 05/04/25 21:05: POC Glucose 200 H 05/05/25 05:13: Sodium 137, Potassium 3.1 L, Chloride 101, Carbon Dioxide 23.5, Anion Gap 13, BUN 30 H, Creatinine 1.58 H, Estim Creat Clear Calc 25.42 L, Est GFR (MDRD) Non-Af 33 L, BUN/Creatinine Ratio 19.1, Glucose 144 H, Calcium 9.1 05/05/25 06:54: POC Glucose 149 H 05/05/25 12:35: POC Glucose 335 H Clinical Impression(s) from Imaging Studies Brain CT 05/01/25 07:49 IMPRESSION: Stable chronic changes as well as meningioma in the anterior aspect of the right frontal lobe. Stroke Alert: Stable examination The critical findings in the findings and impression above were relayed directly by me by telephone to Hiren Garber on 05/01/2025 at 8:08 am with readback verification. Reading Location: [id number] Head/Neck CTA 05/01/25 07:50 IMPRESSION: Mild atherosclerotic plaque formation at the origin of both the right and left internal carotid arteries causing less than 50% stenosis. Stroke Alert: The critical findings in the findings and impression above were relayed directly by me by telephone to Hiren Garber on 05/01/2025 at 8:12 am with readback verification. Reading Location: [id number] Chest X-Ray 05/01/25 08:45 IMPRESSION: Cardiomegaly. No acute abnormality is seen. Reading Location: [id number] Brain MRI 05/02/25 06:46 IMPRESSION: 1. No hemorrhage. 2. Acute ischemia in the right posterior cerebral artery distribution involving the right occipital lobe and portions of the posterior right thalamus. 3. Chronic microvascular ischemic changes and volume loss. Red Alert: Ischemia The critical findings in the findings and impression above were relayed directly by me by telephone to charge nurse, Nataliya Armando on 05/02/2025 at 1:40 pm Eastern standard time with readback verification. Instructions to contact the ordering or covering physician were relayed. Reading Location: [id number] Echocardiogram 05/02/25 08:11 Interpretation Summary Mild to moderate inferior and posterior hypokinesis. Estimated LVEF 55%. Stage II diastolic dysfunction. The left atrium is mildly enlarged. Mild (1+) mitral valve insufficiency. Mild (1+) tricuspid valve insufficiency. Right ventricular systolic pressure estimated to be 47 mmHg. Ordering Physician: Haim Barahona Performed By: Jennifer Rivera, JOSE LUIS Medications at Discharge Home Medications furosemide 20 mg tablet 20 mg PO DAILY 12/27/24 glimepiride 4 mg tablet 4 mg PO BID 12/27/24 hydralazine 25 mg tablet 25 mg PO 4X/DAY 12/27/24 labetalol 200 mg tablet 600 mg PO BID 12/27/24 levothyroxine 75 mcg tablet 75 mcg PO hypothyroid 12/27/24 lisinopril 30 mg tablet 30 mg PO BID 12/27/24 metformin 1,000 mg tablet 1,000 mg PO BID 12/27/24 sitagliptin phosphate 100 mg tablet (Januvia) 100 mg PO DAILY 12/27/24 aspirin 81 mg tablet,delayed release (Adult Aspirin Regimen) 81 mg PO DAILY heart 05/01/25 cholecalciferol (vitamin D3) 25 mcg (1,000 unit) capsule 25 mcg PO DAILY low d 05/01/25 acetaminophen 325 mg tablet 650 mg (2 x 325 mg) PO Q6H PRN PRN Pain 1-10 Or Fever>100.7 #0 tabs 05/05/25 atorvastatin 40 mg tablet 40 mg PO QHS #0 tabs 05/05/25 potassium chloride 20 mEq tablet,extended release(part/cryst) 40 meq (2 x 20 mEq) PO DAILYCM 2 days #4 tabs 05/05/25 risperidone 0.25 mg tablet 0.25 mg PO BID #0 tabs 05/05/25 sennosides 8.6 mg-docusate sodium 50 mg tablet (Stimulant Laxative Plus) 2 tab PO BID PRN PRN Constipation #0 tabs 05/05/25 Physical Exam Narrative Seen and examined. No acute issues. Patient is being discharged to acute rehab, fourth floor Physical exam General: Awake, verbal and communicative. Baseline mental status per oriented x 2. Comprehension improved. HEENT: Atraumatic, Normocephalic. Mostly closed eyes Oral: Oral mucosa dry no Gingival or Mucosal Lesions/ Ulcerations Neck: Supple, No JVD, Negative Carotid Bruits Chest wall/Lungs: Air entry diminished in bilateral lung bases. No crepitation/rhonchi Cardiovascular: Sinus bradycardia no M/G/R Abdomen: Bowel Sounds normal, Soft, Non Tender, Non-Distended : No renal angle tenderness. No suprapubic tenderness. Extremities: No edema, Capillary Refill Less than 3 Seconds Skin: No rashes, No breakdown Musculoskeletal: No Tenderness to Palpation of Joints or Extremities Neurological: Nonfocal exam, nonverbal, reflexes DTR 2/4. GCS 12 E3 V4 M5 Psych/Mental Status: Intermittent disoriented. Verbal response time is delayed Weight / BMI Weight Weight: 167 lb 5.294 oz Body Mass Index (BMI) 32.6 ABG / Lab / Microbiology Data 05/04/25 04:18 05/05/25 05:13 Laboratory: Laboratory Results - last 24 hr 05/05/25 12:35: POC Glucose 335 H 05/05/25 17:17: POC Glucose 273 H 05/05/25 21:08: POC Glucose 221 H 05/06/25 06:27: POC Glucose 206 H 05/06/25 10:52: POC Glucose 369 H Microbiology: Microbiology 05/01/25 08:35 Urine Catheter - Catheter Urine Culture - Final Culture exhibits no growth. 05/01/25 08:35 Urine Catheter - Catheter Legionella Antigen - Final 05/01/25 08:35 Urine Catheter - Catheter Streptococcus pneumoniae Antigen (M - Final 05/01/25 09:45 Blood Culture (Wb) - Left Forearm Blood Culture - Preliminary No growth in 48 hours. 05/01/25 09:23 Blood Culture (Wb) - Left Forearm Blood Culture - Preliminary No growth in 48 hours. 05/02/25 08:50 Mucosa - Nasopharyngeal Respiratory Panel (PCR) - Final 05/01/25 14:20 Mucosa - Nasopharyngeal SARS-CoV-2, Influenza & RSV (PCR) - Final D/C Instructions Weight Bearing Status: Weight bearing as tolerated Call your doctor if you observe: Fever of 101 or Higher, Coldness, Increased Pain, Numbness or Tingling, Change in Color, Inability to urinate, Inability to have a bowel movement, Shortness of breath, Dizziness, Fainting spells, Swelling in the ankles, Chest pain, Prolonged hiccupping, Increased palpitations (irregular heartbeat) and Calf discomfort DC O2, CPAP, BIPAP Needs Home O2 Discharge instructions: No When: IN 2 WEEKS Meaningful Use Info Meaningful Use Meaningful Use Diagnoses (Choose all that apply): Ischemic CVA CVA Therapy Assessed for PT,OT and/or ST?: Yes Ischemic Stroke Antithrombotic order at d/c?: Yes Dx of Atrial fib/flutter?: No Statins at discharge?: Yes Primary Dx Acute Ischemic CVA?: Yes Discharge Plan Admission Admit Date/Time: 05/01/25 13:19 Primary Reason for Your Visit: Acute stroke Attending Provider: Haim Barahona Primary Care Provider: Micky Perez Consulting Providers: Cheri Gusamn; Ana Duran; David Lockwood; Chelo Leavitt; Karuna Barron; Reina Duncan; Maikel Jones; Altaf Juarez; ANTHONY HAGAN; Supa Mcfadden; Xuan Evans Discharge Orders/Prescriptions Prescriptions: New atorvastatin 40 mg Tablet 40 mg PO QHS Qty: 0 0RF acetaminophen 325 mg Tablet 650 mg PO Q6H PRN PRN (Reason: Pain 1-10 Or Fever>100.7) Qty: 0 0RF sennosides-docusate sodium [Stimulant Laxative Plus] 8.6-50 mg Tablet 2 tab PO BID PRN PRN (Reason: Constipation) Qty: 0 0RF risperidone 0.25 mg Tablet 0.25 mg PO BID Qty: 0 0RF potassium chloride 20 mEq Tablet,Er Particles/Crystals 40 meq PO DAILYCM 2 Days Qty: 4 0RF Continued labetalol 200 mg tablet 600 mg PO BID hydralazine 25 mg tablet 25 mg PO 4X/DAY levothyroxine 75 mcg tablet 75 mcg PO Patient Comments: 75 mcg daily and 150 mcg Wednesday Rx Instructions: 75 mcg orally Wed-Wed, and two on Wednesday metformin 1,000 mg tablet 1,000 mg PO BID lisinopril 30 mg tablet 30 mg PO BID furosemide 20 mg tablet 20 mg PO DAILY Januvia 100 mg tablet 100 mg PO DAILY glimepiride 4 mg tablet 4 mg PO BID aspirin [Adult Aspirin Regimen] 81 mg tablet,delayed release (DR/EC) 81 mg PO DAILY cholecalciferol (vitamin D3) 25 mcg (1,000 unit) capsule 25 mcg PO DAILY Other Ambulatory Orders: 30 Day Event Recorder Preventi (Routine) Timeframe: 1 Month Facility: [facility] - Location: Cardiovascular Services Ordered By: Dr. Haim Barahona Referrals / Follow Up: Micky Perez MD [Primary Care Provider, Family Practice] David Grande MD [Non-Staff -Ordering Privileges, Neurology] - Within 1 Month Poncho Caballero DO [Med Staff - Toolmaker Helper, Psychiatry] - Within 1 Month Referral Note: For possible dementia Disposition Disposition (needs filled in before D/C Order can be placed): Inpatient Rehab Unit/Facility Charges/Coding Visit Charges Inpatient E&M: 52728 Disch Hosp >30min
--- NOTE | 2025-05-06 13:44 | NURSING ---
report called to [facility] in [facility]
== END 2025-05-06 14:44 | DRG 637 ==
LOC: ED 13:27 → PCU 13:40 → ICU 13:59 → PCU 05-03 02:01
PROVIDERS: Family Medicine; Admitting Provider Internal Medicine; Emergency Provider Emergency Medicine; PCP Family Medicine; Visit Provider Internal Medicine
DX: E11.10 Type 2 diabetes mellitus with ketoacidosis without coma (principal); I63.531 Cerebral infarction due to unspecified occlusion or stenosis of right posterior cerebral artery; G93.41 Metabolic encephalopathy; G93.6 Cerebral edema; N17.9 Acute kidney failure, unspecified; I11.0 Hypertensive heart disease with heart failure; E03.9 Hypothyroidism, unspecified; I48.91 Unspecified atrial fibrillation; D32.9 Benign neoplasm of meninges, unspecified; I69.320 Aphasia following cerebral infarction; I50.9 Heart failure, unspecified; I25.10 Atherosclerotic heart disease of native coronary artery without angina pectoris; Z79.84 Long term (current) use of oral hypoglycemic drugs; Z79.82 Long term (current) use of aspirin; Z79.899 Other long term (current) drug therapy
CPT/HCPCS: 36415; 36600; 70450; 70496; 70498; 70551; 71045; 74230; 80048; 80051; 80053; 80061; 80076; 81001; 82010; 82533; 82550; 82803; 82962; 83036; 83605; 83735; 83880; 84100; 84443; 84484; 85025; 85610; 85730; 87040; 87086; 87449; 87631; 87633; 87641; 92526; 92610; 92611; 93005; 93306; 95819; 97116; 97163; 97167; 97530; 97535; 99285; Q9967; A4216; J1938

== ENCOUNTER 2025-05-06 14:48 | Inpatient (IN) | payer MEDICARE, BC, SELFPAY ==
--- OUTSIDE RECORDS SUMMARY | 2025-05-06 14:54 | XMS RPT_ITS | CCD ---
Author Organization [facility] Care Team Providers Care Cloth Hand Name Role Phone Micky Pendleton MD Primary Care Provider [phone] Deisi Calle PA-C Unavailable Micky Pendleton MD Primary Care Provider Deisi Calle PA-C Unavailable Knoble POWER PRESS OPERATOR.Saul LION Unavailable Deisi Calle PA-C Unavailable [phone] Micky Pendleton MD Primary Care Provider Knwinnie POWER PRESS OPERATOR.CLERK CHECKERSaul Unavailable Luc MAIN Deisi Unavailable Dr. Hiren Garber DO Emergency Provider [phone] Micky Pendleton MD Primary Care Provider Haim Barahona Admitting Unavailable Micky Pendleton Primary Care Unavailable Valdemar Cates Attending Unavailable Clinton Dean Consulting Unavailable Eben Samaniego Consulting Unavailable Juanjose Lorenzo Consulting Unavailable Valdemar Cates Consulting Unavailable Kt Montiel Consulting Unavailable Swetha Hackett Consulting Unavailable Denilson Khan Consulting Unavailable Steve Baptiste Consulting Unavailable Richard Oleary Consulting Unavailable Lizett Balbuena Consulting UnavailKahlil Gotti Consulting Unavailable Esvin Servin Consulting Unavailable Yudy Miles Consulting Unavailable Varun Mcguire Consulting UnavailConrad Parker Consulting Unavailable Rivera Du Consulting Unavailable Olesya Jaramillo Consulting Unavailable Aurelia Li Consulting Unavailable Percy Taylor Consulting Unavailable Ava Davis Consulting Unavailable Belinda Velazquez Consulting UnavailLeonidas Pelletier Consulting Unavailable Woodrow Johansenhammad Consulting Unavailable Annabelle Bell Consulting Unavailable Alice Wan Consulting Unavailable Mireille Ramirez Consulting Unavailable Rogelio Talamantes Consulting Unavailable Sahil Cruz Consulting Unavailable Patrick Clark Consulting Unavailable Zia Camp Consulting Unavailable Gerson Brown Consulting Unav ailable Bong Waldend Consulting Unavailable Odin Medrano Consulting Unavailable Yeyo Garrett Consulting Unavailable Leny Marquez Consulting Unavailable Ivonne Solis Consulting Unavailable Isidro Garza Consulting Unavailable Tip Cruz Consulting Unavailable Barrie Charles Consulting Unavailable Paul Blake Consulting Unavailable Landon Peck Consulting UnavailSrinivasa Belel Consulting Unavailable Christopher Zepeda Consulting Unavailable Cheri Gusman Consulting Unavailable Julia Cerrato Consulting Unavailable Shakira Newby Consulting Unavailable Ana Duran Consulting Unavailable Mark Alejandro Consulting Unavailable Roma Wade Consulting Unavailable Eduardo Borjas Consulting Unavailable Dominick Zepeda Consulting Unavailable David Lockwood Consulting Unavailable Samreen Padilla Consulting Unavailable Chelo Leavitt Consulting Unavailable Nabeel Lewis Consulting Unavailable Karuna Barron Consulting Unavailable Mireille Johnson Consulting Unavailable Chrissy Mckeon Consulting UnavailArsenio Chirinos Consulting Unavailable Ulisses Pritchard Consulting Unavailable Avinash Wiggins Consulting Unavailable Katie Shaikh Consulting Unavailable Leidy Julian Consulting Unavailable Haim Barahona Consulting Unavailable Haim Barahona Attending Unavailable Saul Duncan Consulting Unavailable Maikel Jones Consulting Unavailable Altaf Juarez Consulting Unavailable ANTHONY HAGAN Consulting Unavailable Supa Mcfadden Consulting Unavailable Xuan Evans Consulting Unavailable Filiberto Aguilera Attending Unavailable Micky Pendleton Primary Care Unavailable Hiren Garber Attending Unavailable Micky Pendleton Primary Care Unavailable DEISI CALLE Attending Unavailable MICKY PENDLETON Primary Care Unavailable DUNG AARON Attending UnavailMICKY Sneed Primary Care Unavailable DUNG AARON Referring Unavaila ble HELDER, MICKY A Primary Care Unavailable HELDER, MICKY A Primary Care Unavailable HELDER, MICKY A Attending Unavailable HELDER, MICKY A Primary Care Unavailable HELDER, MICKY A Referring Unavailable HELDER, MICKY A Primary Care Unavailable BENDARAM, DUNG TURNER Referring Unavaila ble HELDER, MICKY A Primary Care Unavailable HELDER, MICKY A Referring Unavailable HELDER, MICKY A Primary Care Unavailable MILDRED ANDINO Attending Unavailable HELDER, MICKY A Referring Unavailable HELDER, MICKY A Primary Care Unavailable HELDER, MICKY A Referring Unavailable HELDER, MICKY A Primary Care Unavailable HELDER, MICKY A Attending Unavailable HELDER, MICKY A Primary Care Unavailable BENDARAM, DUNG TURNER Attending Unavaila ble HELDER, MICKY A Primary Care Unavailable SAUL MURPHY Referring Unavailable HELDER, MICKY A Primary Care Unavailable HELDER, MICKY A Attending Unavailable HELDER, MICKY A Primary Care Unavailable LICO BARBOSA Attending Unavailable HELDER, MICKY A Primary Care Unavailable BENDARAM, DUNG TURNER Attending Unavaila ble HELDER, MICKY A Primary Care Unavailable Allergies Allergy Classification Reported Allergen(s) Allergy Type Date of Onset Reaction(s) Facility (20 sources) amLODIPine; Translations: [AMLODIPINE BESYLATE] Drug Allergy 5 Other: See Comments [facility] (20 sources) empagliflozin; Translations: [EMPAGLIFLOZIN] Drug Allergy 1 Itching [facility] (8 sources) Penicillins; Translations: [PENICILLINS] Propensity to adverse reactions 5 [facility] (20 sources) Sulfonamides (Antibiotic); Translations: [SULFA (SULFONAMIDE ANTIBIOTICS)] Propensity to adverse reactions 5 [facility] (20 sources) HCTZ [Other] Propensity to adverse reactions 5 Unknown [facility] (20 sources) Penicillins Drug Allergy 5 [facility] Work Phone: (20 sources) hydroCHLOROthiaz yeyo; Translations: [HYDROCHLOROTHIA ZIDE] Drug Allergy 4 [facility] Work Phone: (17 sources) Penicillins Drug Allergy 5 [facility] Medications Current Medications Medication Drug Class(es) Dates Sig (Normalized) Sig (Original) Blood-Glucose Meter (TRUE METRIX GLUCOSE METER) monitoring kit (20 sources) Start: 09-09-2023 Blood-Glucose Meter (TRUE METRIX GLUCOSE METER) monitoring kit Indications: Diabetes mellitus with stage 3 chronic kidney disease (HCC) 1 Each once daily as needed. 1 Kit 09/09/2023 Active Start: 09-09-2023 End: 09-08-2024 Blood-Glucose Meter (TRUE ME TRIX GLUCOSE METER) monitoring kit Indications: Diabetes mellitus with stage 3 chronic kidney disease (HCC) 1 Each once daily as needed. 1 Kit 09/09/2023 09/08/2024 Active Start: 09-09-2023 End: 09-08-2024 Blood-Glucose Meter (TRUE ME TRIX GLUCOSE METER) monitoring kit Indications: Diabetes mellitus with stage 3 chronic kidney disease (HCC) 1 Each once daily as needed. 1 Kit 0 09/09/2023 09/08/2024 Active Comment on above: 1 Each once daily as needed. Blood-Glucose Meter, Drum-type (ACCU-CHEK COMPACT PLUS CARE) kit (20 sources) Start: 5 Blood-Glucose Meter, Drum-type (ACCU-CHEK COMPACT PLUS CARE) kit Dx.250.04 checks sugars once daily. No insulin 1 Kit 0 11/22/2014 Active Comment on above: Dx.250.04 checks sug ars once daily. No insulin cholecalciferol 0.025 mg oral capsule (20 sources) Vitamin D Start: 7 take 1 capsule by mouth once daily Cholecalciferol, Vitamin D3, 1,000 unit cap Indications: Vitamin D deficiency Take 1 capsule by mouth once daily. 30 capsule 03/11/2017 Active Comment on above: Take 1 capsule by [facility] once daily. furosemide 20 mg oral tablet (20 sources) Loop Diuretic Start: 4 End: 5 take 1 tablet by mouth once daily furosemide (LASIX) 20 mg tablet Indications: Essential hypertension, benign Take 1 tablet by mouth once daily. 30 tablet 11 02/07/2025 Active Start: 05-07-2021 End: 04-29-2023 take 1 tablet by mouth once daily furosemide (LASIX) 20 mg tablet Indications: Essential hypertension, benign Take 1 tablet by mouth once daily. 30 tablet 0 04/29/2023 Active Comment on above: Take 1 tablet by eli th once daily. glimepiride 4 mg oral tablet (20 sources) Sulfonylurea Start: 10-16-2024 End: 01-22-2025 glimepiride (AMARYL) 4 mg tablet Indications: Type 2 diabetes mellitus with microalbuminuria, without long-term current use of insulin (HCC) , Diabetes mellitus with stage 3 chronic kidney disease (HCC) Take 1 tablet by mouth two times a day with meals. 180 tablet 1 01/22/2025 Active Start: 07-25-2024 End: 10-16-2024 take 1 tablet by mouth once daily glimepiride (AMARYL) 4 mg tablet Take 1 tablet by mouth once daily. 90 tablet 1 07/25/2024 10/16/2024 Discontinued Start: 06-29-2023 End: 07-24-2024 take 1 tablet by mouth twice daily at mealtime glimepiride (AMARYL) 4 mg tablet Take 1 tablet by mouth two times a day with meals. 180 tablet 1 10/21/2023 07/24/2024 Discontinued Start: 11-14-2021 End: 04-29-2023 take 1 tablet by mouth twice daily at mealtime glimepiride (AMARYL) 4 mg tablet Take 1 tablet by mouth twice daily with meals. 60 tablet 5 11/14/2021 05/18/2022 Discontinued Start: 02-25-2021 End: 11-14-2021 take 1 tablet by mouth once daily at breakfast glimepiride (AMARYL) 4 mg tablet Take 1 tablet by mouth daily with breakfast. 30 tablet 5 09/12/2021 11/14/2021 Discontinued Comment on above: Take 1 tablet by eli th daily with breakfast. Take 1 tablet by eli th twice daily with meals. Take 1 tablet by eli th two times a day with meals. hydrALAZINE hydrochloride 25 mg oral tablet (20 sources) Arteriolar Vasodilator Start: End: take 1 tablet by mouth four times daily hydrALAZINE (APRESOLINE) 25 mg tablet Take 1 tablet by mouth four times daily. 360 tablet 1 07/13/2024 Active Comment on above: Take 1 tablet by eli th four times daily. labetalol hydrochloride 200 mg oral tablet (20 sources) beta-Adrenergic Tracey Start: End: take 3 tablets by mouth twice daily labetalol (TRANDATE) 200 mg tablet Take 3 tablets by mouth two times a day. 180 tablet 5 11/08/2024 05/07/2025 Active Start: 01-08-2023 End: 04-07-2025 take 4 tablets by mouth twice daily labetalol (TRANDATE) 100 mg tablet Take 4 tablets by mouth two times a day. 240 tablet 5 10/09/2024 04/07/2025 Active Start: 12-25-2021 End: 01-06-2023 take 4 tablets by mouth twice daily labetalol (TRANDATE) 100 mg tablet Take 4 tablets by mouth twice daily. 720 tablet 1 07/10/2022 01/06/2023 Active Start: 12-24-2021 End: 12-24-2022 take 2 tablets by mouth twice daily labetalol (TRANDATE) 200 mg tablet Take 2 tablets by mouth twice daily. 120 tablet 5 12/24/2021 12/25/2021 Discontinued Start: 07-22-2021 End: 12-24-2021 take 3 tablets by mouth twice daily labetalol (TRANDATE) 100 mg tablet Indications: Essential hypertension, benign Take 3 tablets by mouth twice daily. 180 tablet 5 07/22/2021 12/24/2021 Discontinued Comment on above: Take 3 tablets by mo uth twice daily. Take 2 tablets by mo uth twice daily. Take 4 tablets by mo uth twice daily. Take 4 tablets by mo uth two times a day. levothyroxine sodium 0.075 mg oral tablet (20 sources) l-Thyroxine Start: 06-29-2023 End: 04-25-2025 levothyroxine (SYNTHROID) 75 mcg tablet Take 1 tablet by mouth once daily. Mon-Sat and two on Wednesday Take on empty stomach. For Thyroid 34 tablet 5 10/27/2024 04/25/2025 Active Start: 03-31-2021 End: 05-17-2023 levothyroxine (SYNTHROID) 75 mcg tablet Take 1 tablet by mouth once daily. Mon-Sat and two on Wednesday Take on empty stomach. For Thyroid 90 tablet 1 11/14/2021 03/26/2022 Discontinued Comment on above: Take 1 tablet by eli th once daily. Take on empty stomach. For Thyroid Take 1 tablet by eli th once daily. Wed-Wed and two on Wednesday Take on empty stomach. For Thyroid lisinopril 30 mg oral tablet (20 sources) Angiotensin Converting Enzyme Inhibitor Start: 09-06-2023 End: 10-02-2024 take 1 tablet by mouth twice daily lisinopril (ZESTRIL) 30 mg tablet Take 1 tablet by mouth two times a day. 60 tablet 5 10/02/2024 Active Start: 06-29-2023 End: 09-06-2023 take 1 tablet by mouth twice daily lisinopril (ZESTRIL) 20 mg tablet Take 1 tablet by mouth two times a day. 60 tablet 5 08/05/2023 09/06/2023 Discontinued Start: 03-31-2021 End: 04-29-2023 take 1 tablet by mouth twice daily lisinopril (ZESTRIL, PRINIVIL) 20 mg tablet Take 1 tablet by mouth twice daily. 180 tablet 1 10/31/2021 04/29/2022 Discontinued Comment on above: Take 1 tablet by eli th twice daily. Take 1 tablet by eli th two times a day. metFORMIN hydrochloride 1000 mg oral tablet (20 sources) Biguanide Start: 03-31-2021 End: 10-16-2024 metFORMIN (GLUCOPHAGE) 1,000 mg tablet Indications: Type 2 diabetes mellitus with microalbuminuria, without long-term current use of insulin (HCC) , Diabetes mellitus with stage 3 chronic kidney disease (HCC) Take 1 tablet by mouth two times a day with meals. 180 tablet 1 10/16/2024 Active Comment on above: Take 1 tablet by eli th twice daily with meals. Take 1 tablet by eli th two times a day with meals. SITagliptin 100 mg oral tablet (20 sources) Dipeptidyl Peptidase 4 Inhibitor Start: 09-20-2024 End: 03-21-2025 SITagliptin phosphate (JANUVIA) 100 mg tablet Indications: Type 2 diabetes mellitus with microalbuminuria, without long-term current use of insulin (HCC) , Diabetes mellitus with stage 3 chronic kidney disease (HCC) Take 1 tablet by mouth once daily. 90 tablet 12/21/2024 03/21/2025 Active Start: 03-22-2024 End: 09-18-2024 take 1 tablet by mouth once daily SITagliptin phosphate (JANUVIA) 100 mg tablet Indications: Type 2 diabetes mellitus with microalbuminuria, without long-term current use of insulin (HCC) Take 1 tablet by mouth once daily. 90 tablet 06/15/2024 09/18/2024 Discontinued Start: 03-13-2024 End: 03-20-2024 take 1 tablet by mouth twice daily SITagliptin phosphate (JANUVIA) 50 mg tablet Indications: Type 2 diabetes mellitus with microalbuminuria, without long-term current use of insulin (HCC) Take 1 tablet by mouth two times a day. 180 tablet 03/13/2024 03/20/2024 Discontinued Start: 12-10-2023 End: 03-13-2024 take 1 tablet by mouth once daily SITagliptin phosphate (JANUVIA) 100 mg tablet Indications: Type 2 diabetes mellitus with microalbuminuria, without long-term current use of insulin (HCC) Take 1 tablet by mouth once daily. 90 tablet 03/13/2024 03/13/2024 Discontinued Start: 09-06-2023 End: 12-11-2023 take 1 tablet by mouth once daily SITagliptin phosphate (JANUVIA) 50 mg tablet Indications: Type 2 diabetes mellitus with microalbuminuria, without long-term current use of insulin (HCC) Take 1 tablet by mouth once daily for 8 days. 8 tablet 0 12/03/2023 12/10/2023 Discontinued Comment on above: Take 1 tablet by eli th once daily. 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 0 02/19/2020 11/14/2021 Discontinued Comment on above: Take 1 tablet by eli th daily with breakfast. cetirizine hydrochloride 10 mg oral capsule (6 sources) Histamine-1 Receptor Antagonist End: 11-14-2021 Cetirizine (ZYRTEC) 10 mg cap Take by mouth as directed. 0 11/14/2021 Discontinued Comment on above: Take by mouth as dir ected. diphenhydrAMINE hydrochloride 25 mg oral capsule (6 sources) Histamine-1 Receptor Antagonist Start: 06-11-2018 End: 11-14-2021 take 2 capsules by mouth every six hours as needed diphenhydrAMINE (BENADRYL) 25 mg capsule Indications: Swelling of both lips Take 2 capsules by mouth every 6 hours as needed. 30 capsule 0 06/11/2018 11/14/2021 Discontinued Comment on above: Take 2 capsules by m outh every 6 hours as needed. 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] Onset: 01-19-2025 01-19-2025 Chronic Anxiety disorders (3 sources) Anxiety; Translations: [Generalized anxiety disorder] Onset: 01-19-2025 12-27-2024 Chronic Cardiac dysrhythmias (1 source) ECG: sinus tachycardia; Translations: [Tachycardia, unspecified] 12-27-2024 Episodic Chronic kidney disease (20 sources) Chronic kidney disease stage 3A ; Translations: [Stage 3a chronic kidney disease (HCC)] Onset: 08-05-2023 08-05-2023 Chronic Chronic kidney disease (1 source) Chronic kidney disease; Translations: [Stage 3a chronic kidney disease (HCC)] Onset: 09-03-2023 Diabetes mellitus with complications (20 sources) Type 2 diabetes mellitus; Translations: [Type 2 diabetes mellitus with other diabetic kidney complication] Onset: 07-31-2015 Resolved: 04-15-2016 04-15-2016 Chronic Diabetes mellitus without complication (20 sources) Diabetes mellitus; Translations: [Type 2 diabetes mellitus without complications] Onset: 11-10-2021 Resolved: 09-28-2012 09-28-2012 Chronic Diabetes mellitus without complication (3 sources) Diabetes mellitus without complication; Translations: [Diabetes mellitus with stage 3 chronic kidney disease (HCC)] Onset: 09-03-2023 Disorders of lipid metabolism (20 sources) Hyperlipidemia; Translations: [Hyperlipidemia, unspecified] Onset: 08-08-2013 07-31-2015 Chronic Essential hypertension (20 sources) Benign essential hypertension; Translations: [Essential (primary) hypertension] Onset: 11-10-2021 06-16-2021 Chronic Fever of unknown origin (1 source) Fever, unspecified; Translations: [Fever, unspecified] Onset: 05-03-2025 Episodic Heart valve disorders (2 sources) Nonrheumatic aortic (valve) insufficiency; Translations: [Aortic valve disorders] Onset: 03-02-2025 03-02-2025 Chronic Miscellaneous mental health disorders (2 sources) Confusional state 01-22-2025 Chronic Neoplasms of unspecified nature or uncertain behavior (1 source) Neoplasm of meninges 01-22-2025 Episodic Nonspecific chest pain (1 source) Atypical chest pain; Translations: [Other chest pain] 12-27-2024 Episodic Nutritional deficiencies (20 sources) Vitamin D deficiency; Translations: [Vitamin D deficiency, unspecified] Onset: 10-19-2013 10-19-2013 Chronic Occlusion or stenosis of precerebral arteries (5 sources) Bilateral stenosis of carotid arteries; Translations: [Occlusion and stenosis of bilateral carotid arteries] Onset: 02-03-2025 02-03-2025 Chronic Osteoarthritis (20 sources) Bilateral arthritis of knees; Translations: [Bilateral primary osteoarthritis of knee] Onset: 12-02-2021 Chronic Other and ill-defined heart disease (2 sources) Left atrial dilatation; Translations: [Cardiomegaly] Onset: 03-02-2025 03-02-2025 Chronic Other and unspecified benign neoplasm (8 sources) Neoplasm of meninges; Translations: [Benign neoplasm of meninges, unspecified] Onset: 12-29-2024 12-29-2024 Chronic Other and unspecified benign neoplasm (1 source) Benign neoplasm of meninges, unspecified; Translations: [Meningioma (HCC)] Onset: 12-29-2024 Chronic Other nervous system disorders (20 sources) Chronic pain; Translations: [Other chronic pain] Onset: 04-02-2021 04-02-2021 Chronic Other nervous system disorders (1 source) Encephalopathy, unspecified; Translations: [Encephalopathy, unspecified] Onset: 05-03-2025 Chronic Other nervous system disorders (1 source) Has difficulty with speech; Translations: [Unspecified speech disturbances] 12-27-2024 Episodic Other nervous system disorders (3 sources) Dysarthria; Translations: [Dysarthria and anarthria] 01-22-2025 Episodic Other nutritional; endocrine; and metabolic disorders (3 sources) Obesity; Translations: [Obesity, unspecified] Onset: 08-15-2012 08-15-2012 Chronic Other nutritional; endocrine; and metabolic disorders (20 sources) Obese class II; Translations: [Obesity, unspecified] Onset: 08-15-2012 11-10-2021 Chronic Other nutritional; endocrine; and metabolic disorders (10 sources) Obese class I; Translations: [Obesity, Class I, BMI 30-34.9] Onset: 08-15-2012 11-08-2024 Chronic Other screening for suspected conditions (not mental disorders or infectious disease) (1 source) Raised cardiac enzyme or marker; Translations: [Other specified abnormal findings of blood chemistry] 12-27-2024 Episodic Residual codes; unclassified (2 sources) Confusional state; Translations: [Disorientation, unspecified] 12-27-2024 Episodic Residual codes; unclassified (7 sources) FH: Alzheimer's disease; Translations: [Family history of epilepsy and other diseases of the nervous system] Onset: 01-19-2025 01-19-2025 Episodic Residual codes; unclassified (1 source) Altered mental status, unspecified; Translations: [Altered mental status, unspecified] Onset: 05-03-2025 Episodic Retinal detachments; defects; vascular occlusion; and retinopathy (20 sources) Bilateral age-related nonexudative macular degeneration; Translations: [Nonexudative age-related macular degeneration, bilateral, stage unspecified] Onset: 03-31-2021 03-31-2021 Chronic Thyroid disorders (20 sources) Hypothyroidism; Translations: [Hypothyroidism, unspecified] Onset: 10-18-2013 10-18-2013 Chronic Transient cerebral ischemia (1 source) Transient cerebral ischemic attack, unspecified; Translations: [TIA (transient ischemic attack)] Onset: 03-07-2025 Chronic Unclassified (1 source) Obesity, Class I, BMI 30-34.9; Translations: [Obesity, Class I, BMI 30-34.9] Onset: 11-08-2024 Unclassified (1 source) Obesity, Class II, BMI 35-39.9; Translations: [Obesity, Class II, BMI 35-39.9] Onset: 11-10-2021 Past or Other Problems Problem Classification Problem Date Documented Date Episodic/Chronic Administrative/socia l admission (20 sources) Advance directive discussed with patient; Translations: [Other specified counseling] Onset: 11-14-2021 11-14-2021 Episodic Genitourinary symptoms and ill-defined conditions (1 source) Proteinuria, unspecified; Translations: [Type 2 diabetes mellitus with microalbuminuria, without long-term current use of insulin (HCC)] Onset: 05-05-2024 Episodic Immunizations and screening for infectious disease (5 sources) Patient encounter status; Translations: [Encounter for immunization] Onset: 05-05-2024 08-05-2023 Episodic Other nervous system disorders (1 source) Dysarthria and anarthria; Translations: [Dysarthria] Onset: 01-19-2025 Episodic Other nervous system disorders (1 source) Unspecified speech disturbances; Translations: [Difficulty with speech] Onset: 12-27-2024 Episodic Other non-traumatic joint disorders (20 sources) Pain in right knee; Translations: [Pain in joint, lower leg] Onset: 04-02-2021 04-02-2021 Episodic Residual codes; unclassified (20 sources) Active living will ; Translations: [Other specified health status] Onset: 11-14-2021 11-14-2021 Episodic Residual codes; unclassified (2 sources) Disorientation, unspecified; Translations: [Disorientation, unspecified] Onset: 01-19-2025 Episodic Unclassified (20 sources) Type 2 diabetes mellitus; Translations: [Uncontrolled type 2 DM with microalbuminuria or microproteinuria] Onset: 09-28-2012 Resolved: 10-18-2013 10-18-2013 Results Test Name Value Interpretation Reference Range Facility Basic Metabolic Profile (BMP )on 05-03-2025 BUN/CRE 13.9 RATIO Normal 04-09 [facility] Comment on above: Performed By: #### L [id number], [id number] #### [facility] [place], [address] Calcium [Mass/Vol] 8.7 mg/dL Normal 7.6-11.0 [facility] Comment on above: Performed By: #### L [id number], [id number] #### [facility] [address] [place], [address] Chloride [Moles/Vol] 101 mmol/L Normal 98-108 [facility] Comment on above: Performed By: #### L [id number], [id number] #### [facility] [address] [place], [address] CO2 [Moles/Vol] 23.0 mmol/L Normal 21.0-32.0 [facility] Comment on above: Performed By: #### L [id number], [id number] #### [facility] [address] [place], [address] Creatinine [Mass/Vol] 1.36 mg/dL High 0.70-1.20 [facility] Comment on above: Performed By: #### L [id number], [id number] #### [facility] [address] [place], [address] ECRCL 29.14 ml/min Low 50-250 [facility] Comment on above: Performed By: #### L 501.5294, L501.5200 #### [facility] [address] [place], [address] GAP 14 Normal 5-15 [facility] Comment on above: Performed By: #### L 501.5294, L501.5200 #### [facility] [address] [place], [address] GFR/1.73 sq M.predicted among non-blacks MDRD (S/P/Bld) [Vol rate/Area] 39 mL/min/{1.73_m2} Low >60 [facility] Comment on above: Result Comment: mL/m in/1.73m2 CKD-EPI Creatinine Equation (2020) Performed By: #### L 501.5294, L501.5200 #### [facility] [address] [place], [address] Glucose [Mass/Vol] 158 mg/dL High 70-99 [facility] Comment on above: Performed By: #### L 501.5294, L501.5200 #### [facility] [address] [place], [address] Potassium [Moles/Vol] 2.9 mmol/L Low 3.3-5.1 [facility] Comment on above: Performed By: #### L 501.5294, L501.5200 #### [facility] [address] [place], [address] Sodium [Moles/Vol] 137 mmol/L Normal 133-145 [facility] Comment on above: Performed By: #### L 501.5294, L501.5200 #### [facility] [address] [place], [address] Urea nitrogen [Mass/Vol] 19 mg/dL Normal 4-19 [facility] Comment on above: Performed By: #### L 501.5294, L501.5200 #### [facility] [address] [place], [address] Bedside Glucoseon 05-03-2025 FINGERSTICK GLU 257 mg/dL High 74-106 [facility] Comment on above: Result Comment: NOAH GEMENT OF PATIENT CARE PER NURSING PROTOCOL Performed By: #### L 501.080 #### [facility] [address] [place], [address] FINGERSTICK GLU 152 mg/dL High 74-106 [facility] Comment on above: Result Comment: NOAH GEMENT OF PATIENT CARE PER NURSING PROTOCOL Performed By: #### L 501.080 #### [facility] [address] [place], [address] FINGERSTICK GLU 213 mg/dL High 74-106 [facility] Comment on above: Result Comment: NOAH ANAYA OF PATIENT CARE PER NURSING PROTOCOL Performed By: #### L 300.3900, L300.4310, L100.0100, L500.2500, L501.4021 #### [facility] [address] [place], [address] CBC W/Diff, Automatedon 11-06 23-2024 Absolute Lymph 1.88 X10 3/uL Normal 0.83-4.51 [facility] Comment on above: Performed By: #### L 501.080 #### [facility] [address] [place], [address] Absolute Neut 8.5 X10 3/uL High 2.0-7.7 [facility] Comment on above: Performed By: #### L 501.080 #### [facility] [address] [place], [address] Basophils/100 WBC (Bld) 0.7 % Normal 0-1 [facility] Comment on above: Performed By: #### L 501.080 #### [facility] [address] [place], [address] Eosinophils/100 WBC (Bld) 0.2 % Normal 0-5 [facility] Comment on above: Performed By: #### L 501.080 #### [facility] [address] [place], [address] Erythrocyte distribution width (RBC) [Ratio] 12.5 % Normal 11.6-14.6 [facility] Comment on above: Performed By: #### L 501.080 #### [facility] [address] [place], [address] Hematocrit (Bld) [Volume fraction] 36.7 % Low 37-47 [facility] Comment on above: Performed By: #### L 501.080 #### [facility] [address] [place], [address] Hemoglobin (Bld) [Mass/Vol] 12.4 g/dL Normal 12.0-15.0 [facility] Comment on above: Performed By: #### L 501.080 #### [facility] [address] [place], [address] IG% 0.500 Normal 0.0-0.9 [facility] Comment on above: Result Comment: IG% - Immature Granulocytes (promyelocytes, myelocytes and metamyelocytes) > 1% indicates that a LEFT SHIFT is Present. Performed By: #### L 501.080 #### [facility] [address] [place], [address] Lymphocytes/100 WBC (Bld) 16.3 % Low 19-41 [facility] Comment on above: Performed By: #### L 501.080 #### [facility] [address] [place], [address] MCH (RBC) [Entitic mass] 28.7 pg Normal 27.0-32.0 [facility] Comment on above: Performed By: #### L 501.080 #### [facility] [address] [place], [address] MCHC (RBC) [Mass/Vol] 33.8 g/dL Normal 32-36 [facility] Comment on above: Performed By: #### L 501.080 #### [facility] [address] [place], [address] MCV (RBC) [Entitic vol] 85.0 fL Normal 81-99 [facility] Comment on above: Performed By: #### L 501.080 #### [facility] [address] [place], [address] Monocytes/100 WBC (Bld) 8.5 % Normal 0-10 [facility] Comment on above: Performed By: #### L 501.080 #### [facility] [address] [place], [address] Neutrophils/100 WBC (Bld) 73.8 % High 47-70 [facility] Comment on above: Performed By: #### L 501.080 #### [facility] [address] [place], [address] Nucleated RBC (Bld) [#/Vol] 0 10*3/uL Normal 0-5 [facility] Comment on above: Performed By: #### L 501.080 #### [facility] [address] [place], [address] Platelet mean volume (Bld) [Entitic vol] 11.0 fL Normal 6.2-12.0 [facility] Comment on above: Performed By: #### L 501.080 #### [facility] [address] [place], [address] Platelets (Bld) [#/Vol] 255 10*3/uL Normal 150-450 [facility] Comment on above: Performed By: #### L 501.080 #### [facility] [address] [place], [address] RBC (Bld) [#/Vol] 4.32 10*6/uL Normal 4.2-5.4 [facility] Comment on above: Performed By: #### L 501.080 #### [facility] [address] [place], [address] RDW SD 38.7 fl Normal 35.1-43.9 [facility] Comment on above: Performed By: #### L 501.080 #### [facility] [address] [place], [address] WBC (Bld) [#/Vol] 11.6 10*3/uL High 4.4-11.0 [facility] Comment on above: Performed By: #### L 501.080 #### [facility] [address] [place], [address] Culture, Blood (WB)on 2024 CUB Blood cultures x2, from two different sites No growth in 48 hours. Normal [facility] Comment on above: Performed By: #### L 501.080 #### [facility] [address] [place], [address] Performed By: #### L 501.3620 #### [facility] [address] [place], [address] Magnesiumon 05-03-2025 Magnesium [Mass/Vol] 1.8 mg/dL Normal 1.5-2.2 [facility] Comment on above: Performed By: #### L 501.080 #### [facility] [address] [place], [address] Basic Metabolic Profile (BMP )on 05-02-2025 BUN Normal 4-19 [facility] Comment on above: Result Comment: PER YASMIN NURSE OK TO CANCEL SPECIMEN WAS NOT OBTAINED. 05-03-25 05:16 Performed By: #### L 501.3620 #### [facility] [address] [place], [address] BUN/CRE Normal 10-20 [facility] Comment on above: Result Comment: PER YASMIN NURSE OK TO CANCEL SPECIMEN WAS NOT OBTAINED. 05-03-25 05:16 Performed By: #### L 501.3620 #### [facility] [address] [place], [address] Calcium Normal 7.6-11.0 [facility] Comment on above: Result Comment: PER YASMIN NURSE OK TO CANCEL SPECIMEN WAS NOT OBTAINED. 05-03-25 05:16 Performed By: #### L 501.3620 #### [facility] [address] [place], [address] CL Normal 98-108 [facility] Comment on above: Result Comment: PER YASMIN NURSE OK TO CANCEL SPECIMEN WAS NOT OBTAINED. 05-03-25 05:16 Performed By: #### L 501.3620 #### [facility] [address] [place], [address] CO2 Normal 21.0-32.0 [facility] Comment on above: Result Comment: PER YASMIN NURSE OK TO CANCEL SPECIMEN WAS NOT OBTAINED. 05-03-25 05:16 Performed By: #### L 501.3620 #### [facility] [address] [place], [address] CREAT,SERUM Normal 0.70-1.20 [facility] Comment on above: Result Comment: PER YASMIN NURSE OK TO CANCEL SPECIMEN WAS NOT OBTAINED. 05-03-25 05:16 Performed By: #### L 501.3620 #### [facility] [address] [place], [address] eGFR Normal >60 [facility] Comment on above: Result Comment: PER YASMIN NURSE OK TO CANCEL SPECIMEN WAS NOT OBTAINED. 05-03-25 05:16 Performed By: #### L 501.3620 #### [facility] [address] [place], [address] GAP Normal 5-15 [facility] Comment on above: Result Comment: PER YASMIN NURSE OK TO CANCEL SPECIMEN WAS NOT OBTAINED. 05-03-25 05:16 Performed By: #### L 501.3620 #### [facility] [address] [place], [address] GLU Normal 70-99 [facility] Comment on above: Result Comment: PER YASMIN NURSE OK TO CANCEL SPECIMEN WAS NOT OBTAINED. 05-03-25 05:16 Performed By: #### L 501.3620 #### [facility] [address] [place], [address] Potassium Normal 3.3-5.1 [facility] Comment on above: Result Comment: PER YASMIN NURSE OK TO CANCEL SPECIMEN WAS NOT OBTAINED. 05-03-25 05:16 Performed By: #### L 501.3620 #### [facility] [address] [place], [address] Basic Metabolic Profile (BMP) Normal 133-145 [facility] Comment on above: Result Comment: PER YASMIN NURSE OK TO CANCEL SPECIMEN WAS NOT OBTAINED. 05-03-25 05:16 Performed By: #### L 501.3620 #### [facility] [address] [place], [address] Bedside Glucoseon 05-02-2025 FINGERSTICK GLU 88 mg/dL Normal 74-106 [facility] Comment on above: Result Comment: NOAH GEMENT OF PATIENT CARE PER NURSING PROTOCOL Performed By: #### L 501.3620 #### [facility] [address] [place], [address] FINGERSTICK GLU 173 mg/dL High 74-106 [facility] Comment on above: Result Comment: NOAH GEMENT OF PATIENT CARE PER NURSING PROTOCOL Performed By: #### L 501.080 #### [facility] [address] [place], [address] FINGERSTICK GLU 250 mg/dL High 74-106 [facility] Comment on above: Result Comment: NOAH GEMENT OF PATIENT CARE PER NURSING PROTOCOL Performed By: #### L 501.3620 #### [facility] [address] [place], [address] FINGERSTICK GLU 210 mg/dL High 74-106 [facility] Comment on above: Result Comment: NOAH GEMENT OF PATIENT CARE PER NURSING PROTOCOL Performed By: #### L 501.3620 #### [facility] [address] [place], [address] FINGERSTICK GLU 147 mg/dL High 74-106 [facility] Comment on above: Result Comment: NOAH GEMENT OF PATIENT CARE PER NURSING PROTOCOL Performed By: #### L 501.3620 #### [facility] [address] [place], [address] FINGERSTICK GLU 144 mg/dL High 74-106 [facility] Comment on above: Result Comment: NOAH GEMENT OF PATIENT CARE PER NURSING PROTOCOL Performed By: #### L 501.3620 #### [facility] [address] [place], [address] FINGERSTICK GLU 157 mg/dL High 74-106 [facility] Comment on above: Result Comment: NOAH GEMENT OF PATIENT CARE PER NURSING PROTOCOL Performed By: #### L 501.080 #### [facility] [address] [facility] [address] FINGERSTICK GLU 166 mg/dL High 74-106 [facility] Comment on above: Result Comment: NOAH GEMENT OF PATIENT CARE PER NURSING PROTOCOL Performed By: #### L 300.3900, L300.4310, L100.0100, L500.2500, L501.4021 #### [facility] [address] [facility] [address] FINGERSTICK GLU 148 mg/dL High 74-106 [facility] Comment on above: Result Comment: NOHA GEMENT OF PATIENT CARE PER NURSING PROTOCOL Performed By: #### L 300.3900, L300.4310, L100.0100, L500.2500, L501.4021 #### [facility] [address] [place], [address] FINGERSTICK GLU 167 mg/dL High 74-106 [facility] Comment on above: Result Comment: NOAH GEMENT OF PATIENT CARE PER NURSING PROTOCOL Performed By: #### L 300.3900, L300.4310, L100.0100, L500.2500, L501.4021 #### [facility] [address] [place], [address] FINGERSTICK GLU 157 mg/dL High 74-106 [facility] Comment on above: Result Comment: NOAH ANAYA OF PATIENT CARE PER NURSING PROTOCOL Performed By: #### L 501.080 #### [facility] [address] [place], [address] Beta-Hydroxbytyrateon 2024 BETA-HYDROXYBUT 0.0 mmol/L Normal 0.0-0.3 [facility] Comment on above: Order Comment: Comme nts: NPO at [place] prior to lipid panel Performed By: #### L 501.080 #### [facility] [address] [place], [address] Blood Gases by CPSon 025 JOSE CARLOS TEST Positive Normal [facility] Comment on above: Performed By: #### L 501.3620 #### [facility] [address] [place], [address] Base excess Calc (Bld) [Moles/Vol] -5 mmol/L Low -2 to +2 [facility] Comment on above: Performed By: #### L 501.3620 #### [facility] [address] [place], [address] Blood Gas Type ART Normal [facility] Comment on above: Performed By: #### L 501.3620 #### [facility] [address] [place], [address] CO2 [Moles/Vol] 21 mmol/L Normal [facility] Comment on above: Performed By: #### L 501.3620 #### [facility] [address] [place], [address] FI02 21.0 Normal [facility] Comment on above: Performed By: #### L 501.3620 #### [facility] [address] [place], [address] HCO3 (Bld) [Moles/Vol] 19.8 mmol/L Low 22-26 [facility] Comment on above: Performed By: #### L 501.3620 #### [facility] [address] [place], [address] Mode Not entered Normal [facility] Comment on above: Performed By: #### L 501.3620 #### [facility] [address] [place], [address] O2 Delivery Dev Not entered Normal [facility] Comment on above: Performed By: #### L 501.6820 #### [facility] [address] [place], [address] pCO2 32.0 mmHg Low 35-45 [facility] Comment on above: Performed By: #### L 501.0360 #### [facility] [address] [place], [address] pH (Bld) 7.40 [pH] Normal 7.35-7.45 [facility] Comment on above: Performed By: #### L 501.6700 #### [facility] [address] [place], [address] PO2 57 mmHG Low 75-100 [facility] Comment on above: Performed By: #### L 501.3620 #### [facility] [address] [place], [address] SITE R Radial Normal [facility] Comment on above: Performed By: #### L 501.3620 #### [facility] [address] [place], [address] SO2 90 Low 94-98 [facility] Comment on above: Performed By: #### L 501.3620 #### [facility] [address] [place], [address] Brain without Contraston Brain without Contrast [facility] [address] [place] [address] Brain without Contrast MR#: [id number] Acct: [id number] Name: CHALINO ARGUELLES Rep #: [id number] : 1945 F 79 From: Denilson Mcadams MD PCP: Dr. Micky Pendleton MD Status: ADM IN Study: Brain without Contrast Date of Exam: 05/02/25 Exam# [id number] Ordering Dr: Haim Barahona MD PROCEDURE: BRAIN WITHOUT CONTRAST 05/02/2025 REASON FOR EXAM: ENCEPHALOPATHY TECHNIQUE: Procedure Code: MRIBR Modality: MR Procedure: BRAIN WITHOUT CONTRAST Multiplanar and multisequence images were obtained. COMPARISON: May 01, 2025 FINDINGS: Image quality is degraded by motion artifact. Brain: Acute ischemia is present in the right CHECKROOM CHIEF distribution involving the right occipital lobe medially as well as a small portion of the posterior thalamus. Cytotoxic edema is present. Changes of chronic microvascular ischemia in the periventricular white matter, deep white matter. Ventricles: Qubv-kc-bzrilsdw volume loss Major Intracranial Vessels: Correlate with recent CT angiogram. Limited by motion artifact. No gross aneurysm. Sinuses: Clear Mastoids: Clear MRI/Brain without Contrast IMPRESSION: 1. No hemorrhage. 2. Acute ischemia in the right posterior cerebral artery distribution involving the right occipital lobe and portions of the posterior right thalamus. 3. Chronic microvascular ischemic changes and volume loss. Red Alert: Ischemia The critical findings in the findings and impression above were relayed directly by me by telephone to charge nurse, Nataliya Armando on 05/02/2025 at 1:40 pm Eastern standard time with readback verification. Instructions to contact the ordering or covering physician were relayed. Reading Location: [id number] CC: Dr. Micky Pendleton MD; Dr. Haim Barahona MD Collaborative Physician: Signed Normal [facility] CBC W/Diff, Automatedon 04-21 Absolute Lymph 2.06 X10 3/uL Normal 0.83-4.51 [facility] Comment on above: Performed By: #### L 300.3900, L300.4310, L100.0100, L500.2500, L501.4021 #### [facility] [address] [place], [address] Absolute Neut 7.3 X10 3/uL Normal 2.0-7.7 [facility] Comment on above: Performed By: #### L 300.3900, L300.4310, L100.0100, L500.2500, L501.4021 #### [facility] [address] [place], [address] Basophils/100 WBC (Bld) 0.3 % Normal 0-1 [facility] Comment on above: Performed By: #### L 300.3900, L300.4310, L100.0100, L500.2500, L501.4021 #### [facility] [address] [place], [address] Eosinophils/100 WBC (Bld) 0.5 % Normal 0-5 [facility] Comment on above: Performed By: #### L 300.3900, L300.4310, L100.0100, L500.2500, L501.4021 #### [facility] [address] [place], [address] Erythrocyte distribution width (RBC) [Ratio] 12.6 % Normal 11.6-14.6 [facility] Comment on above: Performed By: #### L 300.3900, L300.4310, L100.0100, L500.2500, L501.4021 #### [facility] [address] [place], [address] Hematocrit (Bld) [Volume fraction] 29.3 % Low 37-47 [facility] Comment on above: Performed By: #### L 300.3900, L300.4310, L100.0100, L500.2500, L501.4021 #### [facility] [address] [place], [address] Hemoglobin (Bld) [Mass/Vol] 10.0 g/dL Low 12.0-15.0 [facility] Comment on above: Performed By: #### L 300.3900, L300.4310, L100.0100, L500.2500, L501.4021 #### [facility] [address] [place], [address] IG% 0.500 Normal 0.0-0.9 [facility] Comment on above: Result Comment: IG% - Immature Granulocytes (promyelocytes, myelocytes and metamyelocytes) > 1% indicates that a LEFT SHIFT is Present. Performed By: #### L 300.3900, L300.4310, L100.0100, L500.2500, L501.4021 #### [facility] [address] [place], [address] Lymphocytes/100 WBC (Bld) 20.0 % Normal 19-41 [facility] Comment on above: Performed By: #### L 300.3900, L300.4310, L100.0100, L500.2500, L501.4021 #### [facility] [address] [place], [address] MCH (RBC) [Entitic mass] 28.8 pg Normal 27.0-32.0 [facility] Comment on above: Performed By: #### L 300.3900, L300.4310, L100.0100, L500.2500, L501.4021 #### [facility] [address] [place], [address] MCHC (RBC) [Mass/Vol] 34.1 g/dL Normal 32-36 [facility] Comment on above: Performed By: #### L 300.3900, L300.4310, L100.0100, L500.2500, L501.4021 #### [facility] [address] [place], [address] MCV (RBC) [Entitic vol] 84.4 fL Normal 81-99 [facility] Comment on above: Performed By: #### L 300.3900, L300.4310, L100.0100, L500.2500, L501.4021 #### [facility] [address] [place], [address] Monocytes/100 WBC (Bld) 7.6 % Normal 0-10 [facility] Comment on above: Performed By: #### L 300.3900, L300.4310, L100.0100, L500.2500, L501.4021 #### [facility] [address] [place], [address] Neutrophils/100 WBC (Bld) 71.1 % High 47-70 [facility] Comment on above: Performed By: #### L 300.3900, L300.4310, L100.0100, L500.2500, L501.4021 #### [facility] [address] [place], [address] Nucleated RBC (Bld) [#/Vol] 0 10*3/uL Normal 0-5 [facility] Comment on above: Performed By: #### L 300.3900, L300.4310, L100.0100, L500.2500, L501.4021 #### [facility] [address] [place], [address] Platelet mean volume (Bld) [Entitic vol] 11.3 fL Normal 6.2-12.0 [facility] Comment on above: Performed By: #### L 300.3900, L300.4310, L100.0100, L500.2500, L501.4021 #### [facility] [address] [place], [address] Platelets (Bld) [#/Vol] 193 10*3/uL Normal 150-450 [facility] Comment on above: Performed By: #### L 300.3900, L300.4310, L100.0100, L500.2500, L501.4021 #### [facility] [address] [place], [address] RBC (Bld) [#/Vol] 3.47 10*6/uL Low 4.2-5.4 [facility] Comment on above: Performed By: #### L 300.3900, L300.4310, L100.0100, L500.2500, L501.4021 #### [facility] [address] [place], [address] RDW SD 38.4 fl Normal 35.1-43.9 [facility] Comment on above: Performed By: #### L 300.3900, L300.4310, L100.0100, L500.2500, L501.4021 #### [facility] [address] [place], [address] WBC (Bld) [#/Vol] 10.3 10*3/uL Normal 4.4-11.0 [facility] Comment on above: Performed By: #### L 300.3900, L300.4310, L100.0100, L500.2500, L501.4021 #### [facility] [address] [place], [address] Comprehensive Metabolic Prof [facility] 05-02-2025 Albumin [Mass/Vol] 3.4 g/dL Normal 3.4-4.8 [facility] Comment on above: Order Comment: Comme nts: NPO at [place] prior to lipid panel Performed By: #### L 501.080 #### [facility] [address] [place], [address] Albumin/Globulin [Mass ratio] 1.5 {ratio} Normal 0.9-2.4 [facility] Comment on above: Order Comment: Comme nts: NPO at [place] prior to lipid panel Performed By: #### L 501.080 #### [facility] [address] [place], [address] ALK PHOS 42 U/L Normal 35-104 [facility] Comment on above: Order Comment: Comme nts: NPO at [place] prior to lipid panel Performed By: #### L 501.080 #### [facility] [address] [place], [address] ALT [Catalytic activity/Vol] 17 U/L Normal <=34 [facility] Comment on above: Order Comment: Comme nts: NPO at [place] prior to lipid panel Performed By: #### L 501.080 #### [facility] [address] [place], [address] AST [Catalytic activity/Vol] 41 U/L High <=31 [facility] Comment on above: Order Comment: Comme nts: NPO at [place] prior to lipid panel Performed By: #### L 501.080 #### [facility] [address] [place], [address] Bilirubin [Mass/Vol] 0.48 mg/dL Normal 0.00-1.30 [facility] Comment on above: Order Comment: Comme nts: NPO at [place] prior to lipid panel Performed By: #### L 501.080 #### [facility] [address] [place], [address] BUN/CRE 19.1 RATIO Normal 10-20 [facility] Comment on above: Order Comment: Comme nts: NPO at [place] prior to lipid panel Performed By: #### L 501.080 #### [facility] [address] [place], [address] Calcium [Mass/Vol] 7.6 mg/dL Normal 7.6-11.0 [facility] Comment on above: Order Comment: Comme nts: NPO at [place] prior to lipid panel Performed By: #### L 501.080 #### [facility] [address] [place], [address] Chloride [Moles/Vol] 102 mmol/L Normal 98-108 [facility] Comment on above: Order Comment: Comme nts: NPO at [place] prior to lipid panel Performed By: #### L 501.080 #### [facility] [address] [place], [address] CO2 [Moles/Vol] 20.5 mmol/L Low 21.0-32.0 [facility] Comment on above: Order Comment: Comme nts: NPO at [place] prior to lipid panel Performed By: #### L 501.080 #### [facility] [address] [place], [address] Creatinine [Mass/Vol] 1.37 mg/dL High 0.70-1.20 [facility] Comment on above: Order Comment: Comme nts: NPO at [place] prior to lipid panel Performed By: #### L 501.080 #### [facility] [address] [place], [address] ECRCL 29.21 ml/min Low 50-250 [facility] Comment on above: Order Comment: Comme nts: NPO at [place] prior to lipid panel Performed By: #### L 501.080 #### [facility] [address] [place], [address] GAP 12 Normal 5-15 [facility] Comment on above: Order Comment: Comme nts: NPO at [place] prior to lipid panel Performed By: #### L 501.080 #### [facility] [address] [place], [address] GFR/1.73 sq M.predicted among non-blacks MDRD (S/P/Bld) [Vol rate/Area] 39 mL/min/{1.73_m2} Low >60 [facility] Comment on above: Order Comment: Comme nts: NPO at [place] prior to lipid panel Result Comment: mL/m in/1.73m2 CKD-EPI Creatinine Equation (2020) Performed By: #### L 501.080 #### [facility] [address] [place], [address] Globulin (S) [Mass/Vol] 2.2 g/dL Normal 2.2-4.2 [facility] Comment on above: Order Comment: Comme nts: NPO at [place] prior to lipid panel Performed By: #### L 501.080 #### [facility] [address] [place], [address] Glucose [Mass/Vol] 160 mg/dL High 70-99 [facility] Comment on above: Order Comment: Comme nts: NPO at [place] prior to lipid panel Performed By: #### L 501.080 #### [facility] [address] [place], [address] Potassium [Moles/Vol] 3.4 mmol/L Normal 3.3-5.1 [facility] Comment on above: Order Comment: Comme nts: NPO at [place] prior to lipid panel Performed By: #### L 501.080 #### [facility] [address] [place], [address] Sodium [Moles/Vol] 134 mmol/L Normal 133-145 [facility] Comment on above: Order Comment: Comme nts: NPO at [place] prior to lipid panel Performed By: #### L 501.080 #### [facility] [address] [place], [address] T PROT 5.6 g/dL Low 5.9-8.4 [facility] Comment on above: Order Comment: Comme nts: NPO at [place] prior to lipid panel Performed By: #### L 501.080 #### [facility] [address] [place], [address] Urea nitrogen [Mass/Vol] 26 mg/dL High 4-19 [facility] Comment on above: Order Comment: Comme nts: NPO at [place] prior to lipid panel Performed By: #### L 501.080 #### [facility] [address] [place], [address] Consultation - Intensiviston 05-02-2025 Consultation - Human Resources Intern [facility] Medical Records Department [address] [place] [address] Consultation - Human Resources Intern 05/02/25821 MR#: [id number] Acct: [id number] Name: CHALINO ARGUELLES Rep #: [id number] : 1945 79 From: Valdemar Cates DO PCP: Dr. Micky Pendleton MD Status:ADM IN Location: ICU ICU07-1 Assessment Plan Assessment/Plan (1) DKA (diabetic ketoacidoses): QUALIFIERS: Diabetes mellitus complication detail: without coma Diabetes mellitus type: type 2 Qualified Code(s): E11.10 - Type 2 diabetes mellitus with ketoacidosis without coma (2) AMS (altered mental status): PLAN: Plan RECOMMENDATIONS: 1. Discontinue Precedex and continue to hold all sedating medications. 2. Obtain follow-up ABG. 3. MRI brain. 4. Basal and sliding scale insulin coverage. 5. Dietary advancement, once encephalopathy improves. IMPRESSIONS: 1. Encephalopathy Most likely related to metabolic encephalopathy in the setting of DKA. CT imaging of the head was unremarkable. While the patient is still encephalopathic this morning, she was maintained on Precedex overnight. Therefore, recommend discontinuing all sedating medications. TSH was within normal limits. Will obtain follow-up ABG. MRI brain has been ordered by hospitalist. Empiric antibiotics will be continued to cover for potential infectious etiologies, pending results of blood and urine cultures. If cultures are negative, antibiotics will be discontinued. 2. DKA Resolved with IV fluid resuscitation and continuous insulin infusion. The patient has been transition to basal and sliding scale coverage. Diet can be advanced once encephalopathy improves. 3. History of coronary artery disease/CHF/hyperten amy/hypothyroidism Complicates care, management, recovery and prognosis. Continue supportive care as noted above. This note was generated with Dragon dictation software. It may contain incorrect words, spelling, and punctuation that were not noted in checking the note before signing. HPI Consult Data Date of Consult: 05/02/25 HPI Narrative Reason for Consultation: Sepsis, DKA HPI Narrative: The patient is an 79-year-old female, with a history as outlined below, who presented to the emergency department on May 01 with altered mental status and fevers. History pertinent to the patient's hospitalization was obtained primarily via chart review, as the patient is far too encephalopathic to provide any additional details. The patient has a documented history of coronary artery disease, congestive heart failure, diabetes mellitus and hypothyroidism. On presentation to the emergency department, the patient was documented to be febrile and mildly tachycardic but was otherwise maintaining appropriate oxygen saturations on room air. Blood pressure parameters were within normal limits. Laboratory evaluation revealed a white blood cell count of 12,000. Hemoglobin was low at 11.4 g/dL with a platelet count of 246,000. Chemistry profile was notable for a sodium of 124 with a chloride of 86, bicarbonate of 19, anion gap of 18 and creatinine of 2.15. Lactate was elevated at 2.4. Troponin was mildly increased to 28. BNP was normal at 495. Beta hydroxybutyrate level was elevated at 1.9. Urine analysis was unremarkable. CT head failed to demonstrate any acute intracranial findings. Chest x-ray demonstrated no acute cardiopulmonary process. The patient ultimately received supplemental IV fluids and was placed on antimicrobials along with a continuous insulin infusion. She was admitted to the medical intensive care unit for further management. Last evening, the patient apparently became agitated and was therefore ordered to receive a continuous infusion of Precedex. She is documented to be overall net +4.3 L for the hospitalization. Her white blood cell count this morning is normal. ABG from yesterday afternoon was notable for a pH of 7.43 with a pCO2 of 30 and pO2 of 58. The patient's anion gap has been closed since yesterday evening. [facility] Medical History (Updated 05/01/25 @ 16:28 by Tiffany Garrett) TIA (transient ischemic attack) Hypothyroidism Diabetes Congestive heart failure (CHF) Coronary artery disease Hypertension Home Medications ???Medication ???Instructions ???Recorded ???Last Taken ???Type furosemide 20 mg tablet 20 mg PO DAILY 12/27/24 Unknown Hi story glimepiride 4 mg tablet 4 mg PO BID 12/27/24 Unknown Histo ry hydralazine 25 mg tablet 25 mg PO 4X/DAY 12/27/24 Unknown H istory labetalol 200 mg tablet 600 mg PO BID 12/27/24 Unknown His tory levothyroxine 75 mcg tablet 75 mcg PO hypothyroid 12/27/24 Unk nown History lisinopril 30 mg tablet 30 mg PO BID 12/27/24 Unknown Hist ory metformin 1,000 mg tablet 1,000 mg PO BID 12/27/24 Unknown H istory sitagliptin phosphate 100 mg 100 mg PO DAILY 12/27/24 Unknown H istory tablet (Eduardo (more content not included)... Normal [facility] Echo Completeon 05-02-2025 Echo Complete [facility] [address] [place] [address] Echo Complete 05/02/25 0901 MR#: [id number] Acct: [id number] Name: CHALINO ARGUELLES Rep #: [id number] : 1945 79 From: Filiberto Aguilera MD Attending Dr: Dr. Haim Barahona MD Status: ADM IN Ordering Dr: Haim Barahona MD Date: 05/02/25 Location: ICU Sex: F C Admitted: 05/01/25 Reason For Study Reason For Study: DYSPNEA Procedure This was a 2D Doppler, Color Flow transthoracic echocardiogram. The study was technically difficult. The patient was scanned supine. Exam performed portable in ICU/CCU. Left Ventricle Normal size and thickness. Mild to moderate inferior and posterior hypokinesis. Estimated LVEF 55%. Stage II diastolic dysfunction. Right Ventricle Normal right ventricle. Atria The left atrium is mildly enlarged. Normal right atrium. Mitral Valve Mild (1+) mitral valve insufficiency. Tricuspid Valve Mild (1+) tricuspid valve insufficiency. Right ventricular systolic pressure estimated to be 47 mmHg. Aortic Valve Trisinus/trileaflet aortic valve. Trivial aortic valve insufficiency. Pulmonic Valve The pulmonic valve is not well visualized. Great Vessels Normal sized aortic root. Pericardium/Pleural No pericardial effusion. MMode/2D Measurements Calculations LVIDd: 4.3 cm IVSd: 1.1 cm LVOT diam: 2.1 cm LVIDs: 3.0 cm LVPWd: 1.1 cm LVOT area: 3.4 cm2 RVDd: 3.7 cm FS: 29.6 % Ao root diam: 3.5 cm asc Aorta Diam: 3.7 cm LAV(MOD-bp): 60.2 ml LAV(MOD-bp) Indexed: 34.9 ml/m2 LAV(MOD-sp2): 63.4 ml LAV(MOD-sp4): 55.0 ml SV(MOD-sp4): 48.3 ml LVAd ap4: 26.7 cm2 LVAd ap2: 24.2 cm2 LVLd ap4: 7.0 cm LVLd ap2: 7.2 cm SI(MOD-sp4): 28.0 ml/m2 EDV(MOD-sp4): 82.1 ml EDV(MOD-sp2): 66.6 ml EDV(sp4-el): 86.5 ml EDV(sp2-el): 69.7 ml LVAs ap4: 15.7 cm2 LVAs ap2: 14.7 cm2 LVLs ap4: 6.1 cm LVLs ap2: 6.2 cm ESV(MOD-sp4): 33.8 ml ESV(MOD-sp2): 28.9 ml ESV(sp4-el): 34.4 ml ESV(sp2-el): 29.7 ml EF(MOD-sp4): 58.9 % EF(MOD-sp2): 56.6 % EF(sp4-el): 60.2 % SV(MOD-sp2): 37.7 ml SV(sp4-el): 52.1 ml Ao sinus diam: 3.2 cm SI(MOD-sp2): 21.9 ml/m2 Ao ST Junction: 2.5 cm LA dimension(2D): 4.3 cm LA A4 area: 19.6 cm2 TAPSE: 1.6 cm RA A4 area: 15.5 cm2 Time Measurements MV dec time: 0.17 sec Doppler Measurements Calculations MV E max debbie: 92.6 cm/sec Lat Peak E' Debbie: 9.1 cm/sec Med Peak E' Debbie: 7.5 cm/sec MV A max debbie: 85.0 cm/sec E/E' lat: 10.2 E/E' med: 12.4 MV E/A: 1.1 MV dec slope: 530.2 cm/sec2 Ao V2 max: 152.5 cm/sec LV V1 max: 99.4 cm/sec Ao max P.3 mmHg LV V1 max P.0 mmHg Ao V2 mean: 109.9 cm/sec LV V1 mean P.5 mmHg Ao mean P.4 mmHg LV V1 mean: 76.6 cm/sec Ao V2 VTI: 33.9 cm LV V1 VTI: 19.0 cm AV (velocity ratio): 0.56 NUNO(I,D): 1.9 cm2 NUNO(V,D): 2.2 cm2 SV(LVOT): 64.4 ml PA V2 max: 82.9 cm/sec TR max debbie: 284.2 cm/sec TR max P.3 mmHg ECHO/Echo Complete Interpretation Summary Mild to moderate inferior and posterior hypokinesis. Estimated LVEF 55%. Stage II diastolic dysfunction. The left atrium is mildly enlarged. Mild (1+) mitral valve insufficiency. Mild (1+) tricuspid valve insufficiency. Right ventricular systolic pressure estimated to be 47 mmHg. Ordering Physician: Haim Barahona Performed By: Jennifer Rivera RDCS 05/02/251255 Date Filiberto Aguilera MD CC: Dr. Micky Pendleton MD; Dr. Haim Barahona MD Date Dictated: 05/02/25900 Date Transcribed: 05/02/251255 Collaborative Physician: Signed Normal [facility] Electrolyte Panelon 05-02-20 25 Chloride [Moles/Vol] 102 mmol/L Normal 98-108 [facility] Comment on above: Performed By: #### L 501.080 #### [facility] [address] [place], [address] CO2 [Moles/Vol] 20.4 mmol/L Low 21.0-32.0 [facility] Comment on above: Performed By: #### L 501.080 #### [facility] [address] [place], [address] GAP 11 Normal 5-15 [facility] Comment on above: Performed By: #### L 501.080 #### [facility] [address] [place], [address] Potassium [Moles/Vol] 3.4 mmol/L Normal 3.3-5.1 [facility] Comment on above: Performed By: #### L 501.080 #### [facility] [address] [place], [address] Sodium [Moles/Vol] 133 mmol/L Normal 133-145 [facility] Comment on above: Performed By: #### L 501.080 #### [facility] [address] [place], [address] Chloride [Moles/Vol] 101 mmol/L Normal 98-108 [facility] Comment on above: Performed By: #### L 501.5294, L501.5200 #### [facility] [address] [place], [address] CO2 [Moles/Vol] 20.5 mmol/L Low 21.0-32.0 [facility] Comment on above: Performed By: #### L 501.5294, L501.5200 #### [facility] [address] [place], [address] GAP 11 Normal 5-15 [facility] Comment on above: Performed By: #### L 501.5294, L501.5200 #### [facility] [address] [place], [address] Potassium [Moles/Vol] 3.3 mmol/L Normal 3.3-5.1 [facility] Comment on above: Performed By: #### L 501.5294, L501.5200 #### [facility] [address] [place], [address] Sodium [Moles/Vol] 133 mmol/L Normal 133-145 [facility] Comment on above: Performed By: #### L 501.5294, L501.5200 #### [facility] [address] [place], [address] Hemoglobin A1con 05-02-2025 HbA1c (Bld) [Mass fraction] 8.9 % High <=5.6 [facility] Comment on above: Result Comment: Norm al < 5.7 % Prediabetic 5.7 - 6.4 % Diabetic >or= 6.5 % Please note range changes. Performed By: #### L 501.5294, L501.5200 #### [facility] [address] [place], [address] Lipid Profileon 05-02-2025 CHOL:HDL 3.86 Normal [facility] Comment on above: Order Comment: Comme nts: NPO at [place] prior to lipid panel Performed By: #### L 501.080 #### [facility] [address] [place], [address] Cholesterol [Mass/Vol] 130 mg/dL Normal <=200 [facility] Comment on above: Order Comment: Comme nts: NPO at [place] prior to lipid panel Result Comment: Chol esterol level, Desirable <200 mg/dL Borderline high cholesterol 200-239 mg/dL High cholesterol >=240 mg/dL Recommendations of the NCEP Adult Treatment Panel for the following risk-cutoff thresholds for the [place] population. Performed By: #### L 501.080 #### [facility] [address] [place], [address] Cholesterol in HDL [Mass/Vol] 34 mg/dL Low [facility] Comment on above: Order Comment: Comme nts: NPO at [place] prior to lipid panel Result Comment: Ryann onal Cholesterol Education Program (NCEP) guidelines: <40 mg/dL: Low HDL-cholesterol (major risk factor for CHD) >= 60 mg/dL: High HDL-cholesterol (negative risk factor for CHD) HDL-cholesterol is affected by a number of factors, e.g. smoking, exercise, hormones, sex and age. Performed By: #### L 501.080 #### [facility] [address] [facility] [place], [address] Cholesterol in LDL [Mass/Vol] 71 mg/dL Normal [facility] Comment on above: Order Comment: Comme nts: NPO at [place] prior to lipid panel Result Comment: Bord eoctyi=893-198 mg/dL Higher Oswf=900 mg/dL or greater Wheeler Equation 2020 for LDL-C Performed By: #### L 501.080 #### [facility] [address] [place], [address] Cholesterol in VLDL [Mass/Vol] 28 mg/dL Normal 5-40 [facility] Comment on above: Order Comment: Comme nts: NPO at [place] prior to lipid panel Performed By: #### L 501.080 #### [facility] [address] [place], [address] Triglyceride [Mass/Vol] 141 mg/dL Normal [facility] Comment on above: Order Comment: Comme nts: NPO at [place] prior to lipid panel Result Comment: The drugs N-Acetylcysteine and Metamizole may falsely depress this assay. Normal range: <150 mg/dL Borderline High: 150-199 mg/dL High: 200-499 mg/dL Very High: >500 mg/dL Performed By: #### L 501.080 #### [facility] [address] [place], [address] MR/CON.PCM.NEon 05-02-2025 MR/CON.PCM.NE [facility] Medical Records Department [address] [place] [address] Consultation - Neurology 05/02/25 1415 MR#: [id number] Acct: [id number] Name: CHALINO ARGUELLES Rep #: [id number] : 1945 79 From: Arsenio Calle MD PCP: Dr. Micky Pendleton MD Status:ADM IN Location: ICU ICU07-1 Assessment and Plan: Neuro Assessment/Plan CHALINO ARGUELLES is a 79 F with a past medical history of diabetes presenting with confusion and found to have acute ischemic stroke. Diagnosis: acute ischemic stroke Plan: - continue ASA 81 mg - nursing NIHSS checks per protocol; CTH for acute change - no need for permissive HTN as we are out of acute window: goal systolic < 130 - aggressive diabetes control - check LDL; continue atorvastatin 40 mg daily - echocardiogram - heart monitor to assess for AF - SLT for swallowing - PT/OT for assessment of rehab needs I personally attended this patient and spent a total time of 45 minutes evaluating this patient including clinical assessment, review of chart, medical history imaging, and determining appropriate treatment and workup. Arsenio Calle MD [employer], [facility] HPI Consult Data Date of Consult: 05/02/25 HPI Narrative HPI Narrative: CHALINO ARGUELLES, is a 79 F who presents with confusion. History per chart and daughters who are bedside as patient provides none. Evening Monday 04/30 her speech was "urgent" but she was not confused. Confused AM Tuesday 05/01 and came to ED. Treated for DKA and electrolyte derangement and infection/sepsis and with encephalopathy and neurology was consulted. As I was in room (via telemedicine robot) with family her MRI returned and I read the image personally while evaluating her: it shows an acute ischemic stroke. I notified nursing and patient manager. WIth no clear last known well (certainly >24 hours) she is outside the window for intervention. [facility] Medical History (Updated 05/01/25 @ 16:28 by Tiffany Garrett) TIA (transient ischemic attack) Hypothyroidism Diabetes Congestive heart failure (CHF) Coronary artery disease Hypertension Home Medications ???Medication ???Instructions ???Recorded ???Last Taken ???Type furosemide 20 mg tablet 20 mg PO DAILY 12/27/24 Unknown Hi story glimepiride 4 mg tablet 4 mg PO BID 12/27/24 Unknown Histo ry hydralazine 25 mg tablet 25 mg PO 4X/DAY 12/27/24 Unknown H istory labetalol 200 mg tablet 600 mg PO BID 12/27/24 Unknown His tory levothyroxine 75 mcg tablet 75 mcg PO hypothyroid 12/27/24 Unk nown History lisinopril 30 mg tablet 30 mg PO BID 12/27/24 Unknown Hist ory metformin 1,000 mg tablet 1,000 mg PO BID 12/27/24 Unknown H istory sitagliptin phosphate 100 mg 100 mg PO DAILY 12/27/24 Unknown H istory tablet (Januvia) aspirin 81 mg tablet,delayed 81 mg PO DAILY heart 05/01/25 Unkn own History release (Adult Aspirin Regimen) cholecalciferol (vitamin D3) 25 25 mcg PO DAILY low d 05/01/25 Unk nown History mcg (1,000 unit) capsule Allergy/AdvReac Type Severity Reaction Status Date / Time No Known Allergies Allergy Verified 05/01/25 07:50 Social History Smoking Status: Never smoker Vital Signs Vital Signs Vital Signs: 05/01/25 14:58 05/01/25 15:06 05/01/25 15:07 Temperature 97.8 F Temperature Source Temporal Pulse Rate 140 H 153 H Respiratory Rate 28 H 24 H Respiratory Effort Respiratory Depth Respiratory Pattern Blood Pressure 161/123 H 167/135 H Blood Pressure Mean 135 145 Blood Pressure Source Monitor Blood Pressure Position Semi-Fowlers Blood Pressure Location Left Arm Pulse Ox 96 95 98 Oxygen Delivery Method Room Air Room Air Room Air 05/01/25 15:15 05/01/25 15:30 05/01/25 15:30 Temperature 100.5 F H Temperature Source Core Pulse Rate 155 H 115 H Respiratory Rate 21 H 20 H Respiratory Effort Normal Short of Breath Respiratory Depth Shallow Respiratory Pattern Tachypnea Blood Pressure 165/135 H 216/107 H Blood Pressure Mean 145 143 Blood Pressure Source Blood Pressure Position Blood Pressure Location Pulse Ox 93 95 Oxygen Delivery Method Room Air Room Air Room Air 05/01/25 16:00 05/01/25 16:00 05/01/25 16:30 Temperature 100.1 F H 99.8 F H Temperature Source Core Core Pulse Rate 109 H 115 H 126 H Respiratory Rate 19 H 19 H Respiratory Effort Respiratory Depth Respiratory Pattern Blood Pressure 181/108 H 186/89 H Blood Pressure Mean 132 121 Blood Pressure Source Monitor Monitor Blood Pressure Position Semi-Fowlers Semi-Fowlers Blood Pressure Location Right Forearm Right Forearm Pulse Ox 96 94 Oxygen Delivery Method Room Air Room Air (more content not included)... Normal [facility] Magnesiumon 05-02-2025 Magnesium [Mass/Vol] 2.3 mg/dL High 1.5-2.2 [facility] Comment on above: Performed By: #### L 501.080 #### [facility] [address] [place], [address] Magnesium [Mass/Vol] 2.2 mg/dL Normal 1.5-2.2 [facility] Comment on above: Performed By: #### L 501.5294, L501.5200 #### [facility] [address] [place], [address] Phosphoruson 05-02-2025 Phosphate [Mass/Vol] 3.1 mg/dL Normal 2.7-4.5 [facility] Comment on above: Performed By: #### L 501.080 #### [facility] [address] [place], [address] Phosphate [Mass/Vol] 3.2 mg/dL Normal 2.7-4.5 [facility] Comment on above: Performed By: #### L 300.3900, L300.4310, L100.0100, L500.2500, L501.4021 #### [facility] [address] [place], [address] RESPIRATORY PANEL MOLECULARo n 05-02-2025 RP PANEL ADENOVIRUS Not Detected INFLUENZA A Not Detected INFLUENZA A (SUBTYPE H1) Not Detected INFLUENZA A (SUBTYPE H3) Not Detected INFLUENZA B Not Detected HUMAN METAPHNEUMO Not Detected PARAINFLUENZA 1 Not Detected PARAINFLUENZA 2 Not Detected PARAINFLUENZA 3 Not Detected PARAINFLUENZA 4 Not Detected RHINOVIRUS Not Detected RSV A Not Detected RSV B Not Detected Normal [facility] Comment on above: Performed By: #### L 501.3620 #### [facility] [address] [place], [address] Thyroid Stim Hormone (TSH)on 05-02-2025 TSH 0.576 uIU/mL Normal 0.300-4.200 [facility] Comment on above: Performed By: #### L 501.080 #### [facility] [address] [place], [address] Urine Cultureon 05-02-2025 URC Culture exhibits no growth. Normal [facility] Comment on above: Performed By: #### L 501.080 #### [facility] [address] [place], [address] 12 Lead EKGon 05-01-2025 12 Lead EKG [facility] [address] [place] [address] 12 Lead EKG 05/01/25 1108 MR#: [id number] Acct: [id number] Name: CHALINO ARGUELLES Rep #: [id number] : 1945 79 From: Kameron Rutledge MD Attending Dr: Dr. Haim Barahona MD Status: ADM IN Ordering Dr: Hiren Garber DO Date: 05/01/25 Location: ICU Sex: F C Admitted: 05/01/25 Test Reason : REPEAT-RHYTHM CHANGE Blood Pressure : */* mmHG Vent. Rate : 127 BPM Atrial Rate : * BPM P-R Int : * ms QRS Dur : 96 ms QT Int : 316 ms P-R-T Axes : * -18 115 degrees QTcB Int : 459 ms Atrial fibrillation with rapid ventricular response Minimal voltage criteria for LVH, may be normal variant ( Yosef product ) T wave abnormality, consider lateral ischemia Abnormal ECG Confirmed by Kameron Rutledge ([id number]), editor managing director ESTELA CANTU ([id number]) on 05/02/2025 10:33:43 AM Referred By: ES Confirmed By: Kameron Rutledge 05/02/25 103 Date Kameron Rutledge MD CC: Dr. Hiren Garber DO; Dr. Micky Pendleton MD; Dr. Haim Barahona MD Signed Normal [facility] 12 Lead EKG [facility] [address] [place] [address] 12 Lead EKG 05/01/25 0824 MR#: [id number] Acct: [id number] Name: CHALINO ARGUELLES Rep #: [id number] : 1945 79 From: Kameron Rutledge MD Attending Dr: Dr. Haim Barahona MD Status: ADM IN Ordering Dr: Hiren Garber DO Date: 05/01/25 Location: ICU Sex: F C Admitted: 05/01/25 Test Reason : STROKE ALERT Blood Pressure : */* mmHG Vent. Rate : 95 BPM Atrial Rate : 95 BPM P-R Int : 190 ms QRS Dur : 94 ms QT Int : 394 ms P-R-T Axes : 43 -50 60 degrees QTcB Int : 495 ms Sinus rhythm with Premature supraventricular complexes Left axis deviation Minimal voltage criteria for LVH, may be normal variant ( [place] product ) ST T wave abnormality, consider lateral ischemia BASELINE ARTIFACT Abnormal ECG Confirmed by Kameron Rutledge ([id number]), editor managing director ESTELA CANTU ([id number]) on 05/02/2025 10:33:29 AM Referred By: Confirmed By: Kameron Rutledge 05/02/25 1033 Date Kameron Rutledge MD CC: Dr. Hiren Garber DO; Dr. Micky Pendleton MD; Dr. Haim Barahona MD Signed Normal [facility] Basic Metabolic Profile (BMP )on 05-01-2025 BUN/CRE 21.8 RATIO High 10-20 [facility] Comment on above: Performed By: #### L 501.080 #### [facility] [address] [place], [address] Calcium [Mass/Vol] 9.0 mg/dL Normal 7.6-11.0 [facility] Comment on above: Performed By: #### L 501.080 #### [facility] [address] [place], [address] Chloride [Moles/Vol] 87 mmol/L Low 98-108 [facility] Comment on above: Performed By: #### L 501.080 #### [facility] [address] [place], [address] CO2 [Moles/Vol] 16.8 mmol/L Low 21.0-32.0 [facility] Comment on above: Performed By: #### L 501.080 #### [facility] [address] [place], [address] Creatinine [Mass/Vol] 1.87 mg/dL High 0.70-1.20 [facility] Comment on above: Performed By: #### L 501.080 #### [facility] [address] [place], [address] ECRCL 21.12 ml/min Low 50-250 [facility] Comment on above: Performed By: #### L 501.080 #### [facility] [address] [place], [address] GAP 24 High 5-15 [facility] Comment on above: Performed By: #### L 501.080 #### [facility] [address] [place], [address] GFR/1.73 sq M.predicted among non-blacks MDRD (S/P/Bld) [Vol rate/Area] 27 mL/min/{1.73_m2} Low >60 [facility] Comment on above: Result Comment: mL/m in/1.73m2 CKD-EPI Creatinine Equation (2020) Performed By: #### L 501.080 #### [facility] [address] [place], [address] Glucose [Mass/Vol] 430 mg/dL High 70-99 [facility] Comment on above: Performed By: #### L 501.080 #### [facility] [address] [place], [address] Potassium [Moles/Vol] 4.0 mmol/L Normal 3.3-5.1 [facility] Comment on above: Performed By: #### L 501.080 #### [facility] [address] [place], [address] Sodium [Moles/Vol] 128 mmol/L Low 133-145 [facility] Comment on above: Performed By: #### L 501.080 #### [facility] [address] [place], [address] Urea nitrogen [Mass/Vol] 41 mg/dL High 4-19 [facility] Comment on above: Performed By: #### L 501.080 #### [facility] [address] [place], [address] BUN/CRE 19.0 RATIO Normal 10-20 [facility] Comment on above: Performed By: #### L 501.5294, L501.5200 #### [facility] [address] [place], [address] Calcium [Mass/Vol] 8.7 mg/dL Normal 7.6-11.0 [facility] Comment on above: Performed By: #### L 501.5294, L501.5200 #### [facility] [address] [place], [address] Chloride [Moles/Vol] 86 mmol/L Low 98-108 [facility] Comment on above: Performed By: #### L 501.5294, L501.5200 #### [facility] [address] [place], [address] CO2 [Moles/Vol] 19.3 mmol/L Low 21.0-32.0 [facility] Comment on above: Performed By: #### L 501.5294, L501.5200 #### [facility] [address] [place], [address] Creatinine [Mass/Vol] 2.15 mg/dL High 0.70-1.20 [facility] Comment on above: Performed By: #### L 501.5294, L501.5200 #### [facility] [address] [place], [address] ECRCL 18.77 ml/min Low 50-250 [facility] Comment on above: Performed By: #### L 501.5294, L501.5200 #### [facility] [address] [place], [address] GAP 18 High 5-15 [facility] Comment on above: Performed By: #### L 501.5294, L501.5200 #### [facility] [address] [place], [address] GFR/1.73 sq M.predicted among non-blacks MDRD (S/P/Bld) [Vol rate/Area] 23 mL/min/{1.73_m2} Low >60 [facility] Comment on above: Result Comment: mL/m in/1.73m2 CKD-EPI Creatinine Equation (2020) Performed By: #### L 501.5294, L501.5200 #### [facility] [address] [place], [address] Glucose [Mass/Vol] 410 mg/dL High 70-99 [facility] Comment on above: Performed By: #### L 501.5294, L501.5200 #### [facility] [address] [place], [address] Potassium [Moles/Vol] 3.9 mmol/L Normal 3.3-5.1 [facility] Comment on above: Performed By: #### L 501.5294, L501.5200 #### [facility] [address] [place], [address] Sodium [Moles/Vol] 124 mmol/L Low 133-145 [facility] Comment on above: Performed By: #### L 501.5294, L501.5200 #### [facility] [address] [place], [address] Urea nitrogen [Mass/Vol] 41 mg/dL High 4-19 [facility] Comment on above: Performed By: #### L 501.5294, L501.5200 #### [facility] [address] [place], [address] Bedside Glucoseon 05-01-2025 FINGERSTICK GLU 172 mg/dL High 74-106 [facility] Comment on above: Result Comment: NOAH ANAYA OF PATIENT CARE PER NURSING PROTOCOL Performed By: #### L 300.3900, L300.4310, L100.0100, L500.2500, L501.4021 #### [facility] [address] [place], [address] FINGERSTICK GLU 179 mg/dL High 74-106 [facility] Comment on above: Result Comment: NOAH GEMENT OF PATIENT CARE PER NURSING PROTOCOL Performed By: #### L 300.3900, L300.4310, L100.0100, L500.2500, L501.4021 #### [facility] [address] [place], [address] FINGERSTICK GLU 180 mg/dL High 74-106 [facility] Comment on above: Result Comment: NOAH GEMENT OF PATIENT CARE PER NURSING PROTOCOL Performed By: #### L 501.080 #### [facility] [address] [place], [address] FINGERSTICK GLU 158 mg/dL High 74-106 [facility] Comment on above: Result Comment: NOAH GEMENT OF PATIENT CARE PER NURSING PROTOCOL Performed By: #### L 501.080 #### [facility] [address] [place], [address] FINGERSTICK GLU 156 mg/dL High 74-106 [facility] Comment on above: Result Comment: NOAH GEMENT OF PATIENT CARE PER NURSING PROTOCOL Performed By: #### L 501.080 #### [facility] [address] [place], [address] Performed By: #### L 300.3900, L300.4310, L100.0100, L500.2500, L501.4021 #### [facility] [address] [place], [address] FINGERSTICK GLU 222 mg/dL High 74-106 [facility] Comment on above: Result Comment: NOAH GEMENT OF PATIENT CARE PER NURSING PROTOCOL Performed By: #### L 300.3900, L300.4310, L100.0100, L500.2500, L501.4021 #### [facility] [address] [place], [address] FINGERSTICK GLU 324 mg/dL High 74-106 [facility] Comment on above: Result Comment: NOAH GEMENT OF PATIENT CARE PER NURSING PROTOCOL Performed By: #### L 300.3900, L300.4310, L100.0100, L500.2500, L501.4021 #### [facility] [address] [place], [address] FINGERSTICK GLU 397 mg/dL High 74-106 [facility] Comment on above: Result Comment: NOAH GEMENT OF PATIENT CARE PER NURSING PROTOCOL Performed By: #### L 501.080 #### [facility] [address] [place], [address] Beta-Hydroxbytyrateon 2024 BETA-HYDROXYBUT 1.9 mmol/L High 0.0-0.3 [facility] Comment on above: Performed By: #### L 501.080 #### [facility] [address] [place], [address] Blood Gases by CPSon 025 JOSE CARLOS TEST Positive Normal [facility] Comment on above: Performed By: #### L 501.080 #### [facility] [address] [place], [address] Base excess Calc (Bld) [Moles/Vol] -4 mmol/L Low -2 to +2 [facility] Comment on above: Performed By: #### L 501.080 #### [facility] [address] [place], [address] Blood Gas Type ART Normal [facility] Comment on above: Performed By: #### L 501.080 #### [facility] [address] [place], [address] CO2 [Moles/Vol] 21 mmol/L Normal [facility] Comment on above: Performed By: #### L 501.080 #### [facility] [address] [place], [address] FI02 21.0 Normal [facility] Comment on above: Performed By: #### L 501.080 #### [facility] [address] [place], [address] HCO3 (Bld) [Moles/Vol] 19.9 mmol/L Low 22-26 [facility] Comment on above: Performed By: #### L 501.080 #### [facility] [address] [place], [address] Mode Not entered Normal [facility] Comment on above: Performed By: #### L 501.080 #### [facility] [address] [place], [address] O2 Delivery Dev Not entered Normal [facility] Comment on above: Performed By: #### L 501.080 #### [facility] [address] [place], [address] pCO2 30.0 mmHg Low 35-45 [facility] Comment on above: Performed By: #### L 501.080 #### [facility] [address] [place], [address] pH (Bld) 7.43 [pH] Normal 7.35-7.45 [facility] Comment on above: Performed By: #### L 501.080 #### [facility] [address] [place], [address] PO2 58 mmHG Low 75-100 [facility] Comment on above: Performed By: #### L 501.080 #### [facility] [address] [place], [address] SITE R Radial Normal [facility] Comment on above: Performed By: #### L 501.080 #### [facility] [address] [place], [address] SO2 91 Low 94-98 [facility] Comment on above: Performed By: #### L 501.080 #### [facility] [address] [place], [address] CBC W/Diff, Automatedon 04-21 Absolute Lymph 1.15 X10 3/uL Normal 0.83-4.51 [facility] Comment on above: Performed By: #### L 300.3900, L300.4310, L100.0100, L500.2500, L501.4021 #### [facility] [address] [place], [address] Absolute Neut 10.5 X10 3/uL High 2.0-7.7 [facility] Comment on above: Performed By: #### L 300.3900, L300.4310, L100.0100, L500.2500, L501.4021 #### [facility] [address] [place], [address] Basophils/100 WBC (Bld) 0.4 % Normal 0-1 [facility] Comment on above: Performed By: #### L 300.3900, L300.4310, L100.0100, L500.2500, L501.4021 #### [facility] [address] [place], [address] Eosinophils/100 WBC (Bld) 0.1 % Normal 0-5 [facility] Comment on above: Performed By: #### L 300.3900, L300.4310, L100.0100, L500.2500, L501.4021 #### [facility] [address] [place], [address] Erythrocyte distribution width (RBC) [Ratio] 12.3 % Normal 11.6-14.6 [facility] Comment on above: Performed By: #### L 300.3900, L300.4310, L100.0100, L500.2500, L501.4021 #### [facility] [address] [place], [address] Hematocrit (Bld) [Volume fraction] 34.1 % Low 37-47 [facility] Comment on above: Performed By: #### L 300.3900, L300.4310, L100.0100, L500.2500, L501.4021 #### [facility] [address] [place], [address] Hemoglobin (Bld) [Mass/Vol] 11.4 g/dL Low 12.0-15.0 [facility] Comment on above: Performed By: #### L 300.3900, L300.4310, L100.0100, L500.2500, L501.4021 #### [facility] [address] [place], [address] IG% 1.000 High 0.0-0.9 [facility] Comment on above: Result Comment: IG% - Immature Granulocytes (promyelocytes, myelocytes and metamyelocytes) > 1% indicates that a LEFT SHIFT is Present. Performed By: #### L 300.3900, L300.4310, L100.0100, L500.2500, L501.4021 #### [facility] [address] [place], [address] Lymphocytes/100 WBC (Bld) 9.3 % Low 19-41 [facility] Comment on above: Performed By: #### L 300.3900, L300.4310, L100.0100, L500.2500, L501.4021 #### [facility] [address] [place], [address] MCH (RBC) [Entitic mass] 28.1 pg Normal 27.0-32.0 [facility] Comment on above: Performed By: #### L 300.3900, L300.4310, L100.0100, L500.2500, L501.4021 #### [facility] [address] [place], [address] MCHC (RBC) [Mass/Vol] 33.4 g/dL Normal 32-36 [facility] Comment on above: Performed By: #### L 300.3900, L300.4310, L100.0100, L500.2500, L501.4021 #### [facility] [address] [place], [address] MCV (RBC) [Entitic vol] 84.0 fL Normal 81-99 [facility] Comment on above: Performed By: #### L 300.3900, L300.4310, L100.0100, L500.2500, L501.4021 #### [facility] [address] [place], [address] Monocytes/100 WBC (Bld) 3.7 % Normal 0-10 [facility] Comment on above: Performed By: #### L 300.3900, L300.4310, L100.0100, L500.2500, L501.4021 #### [facility] [address] [place], [address] Neutrophils/100 WBC (Bld) 85.5 % High 47-70 [facility] Comment on above: Performed By: #### L 300.3900, L300.4310, L100.0100, L500.2500, L501.4021 #### [facility] [address] [place], [address] Nucleated RBC (Bld) [#/Vol] 0 10*3/uL Normal 0-5 [facility] Comment on above: Performed By: #### L 300.3900, L300.4310, L100.0100, L500.2500, L501.4021 #### [facility] [address] [place], [address] Platelet mean volume (Bld) [Entitic vol] 11.0 fL Normal 6.2-12.0 [facility] Comment on above: Performed By: #### L 300.3900, L300.4310, L100.0100, L500.2500, L501.4021 #### [facility] [address] [place], [address] Platelets (Bld) [#/Vol] 246 10*3/uL Normal 150-450 [facility] Comment on above: Performed By: #### L 300.3900, L300.4310, L100.0100, L500.2500, L501.4021 #### [facility] [address] [place], [address] RBC (Bld) [#/Vol] 4.06 10*6/uL Low 4.2-5.4 [facility] Comment on above: Performed By: #### L 300.3900, L300.4310, L100.0100, L500.2500, L501.4021 #### [facility] [address] [place], [address] RDW SD 37.8 fl Normal 35.1-43.9 [facility] Comment on above: Performed By: #### L 300.3900, L300.4310, L100.0100, L500.2500, L501.4021 #### [facility] [address] [place], [address] WBC (Bld) [#/Vol] 12.3 10*3/uL High 4.4-11.0 [facility] Comment on above: Performed By: #### L 300.3900, L300.4310, L100.0100, L500.2500, L501.4021 #### [facility] [address] [place], [address] CPK Total, Creatine Kinaseon 05-01-2025 CPK TOTAL 187 U/L Normal 24-195 [facility] Comment on above: Performed By: #### L 501.3620 #### [facility] [address] [place], [address] Chest 1 Viewon 05-01-2025 Chest 1 View [facility] Imaging Services [address] [place], [place] [address] Chest 1 View MR#: [id number] Acct: [id number] Name: CHALINO ARGUELLES Rep #: [id number] : 1945 F 79 From: Franki restrepo MD PCP: Dr. Micky Pendleton MD Status: [facility] ER Study: Chest 1 View Date of Exam: 05/01/25 Exam# [id number] Ordering Dr: Hiren Garber DO PROCEDURE: CHEST 1 VIEW 05/01/2025 REASON FOR EXAM: NEURO DEFICIT, ACUTE, STROKE SUSPECTED TECHNIQUE: Frontal view of the chest. COMPARISON: December 27, 2024. FINDINGS: Hardware: EKG electrodes are seen. Heart: Moderate cardiomegaly. Tortuosity and calcification of the aortic arch. Lungs: No acute abnormality is seen. Bones: Degenerative changes are identified within the thoracic spine. Degenerative changes of the right shoulder. RAD/Chest 1 View IMPRESSION: Cardiomegaly. No acute abnormality is seen. Reading Location: [facility] CC: Dr. Hiren Garber DO; Dr. Micky Pendleton MD Collaborative Physician: Signed Normal [facility] Electrolyte Panelon 05-01-20 25 Chloride [Moles/Vol] 99 mmol/L Normal 98-108 [facility] Comment on above: Performed By: #### L 501.080 #### [facility] [address] [place], [address] CO2 [Moles/Vol] 20.3 mmol/L Low 21.0-32.0 [facility] Comment on above: Performed By: #### L 501.080 #### [facility] [address] [place], [address] GAP 13 Normal 5-15 [facility] Comment on above: Performed By: #### L 501.080 #### [facility] [address] [place], [address] Potassium [Moles/Vol] 3.4 mmol/L Normal 3.3-5.1 [facility] Comment on above: Performed By: #### L 501.080 #### [facility] [address] [place], [address] Sodium [Moles/Vol] 132 mmol/L Low 133-145 [facility] Comment on above: Performed By: #### L 501.080 #### [facility] [address] [place], [address] Chloride [Moles/Vol] 100 mmol/L Normal 98-108 [facility] Comment on above: Performed By: #### L 501.080 #### [facility] [address] [place], [address] CO2 [Moles/Vol] 20.0 mmol/L Low 21.0-32.0 [facility] Comment on above: Performed By: #### L 501.080 #### [facility] [address] [place], [address] GAP 15 Normal 5-15 [facility] Comment on above: Performed By: #### L 501.080 #### [facility] [address] [place], [address] Potassium [Moles/Vol] 3.3 mmol/L Normal 3.3-5.1 [facility] Comment on above: Result Comment: Hemo lysis present, Results??could be affected. ?? Performed By: #### L 501.080 #### [facility] [address] [place], [address] Sodium [Moles/Vol] 135 mmol/L Normal 133-145 [facility] Comment on above: Performed By: #### L 501.080 #### [facility] [address] [place], [address] Emergency Department Summary on 05-01-2025 Emergency Department Summary [facility] Medical Records Department [address] [place] [address] Emergency Department Summary 05/01/25 MR#: [id number] Acct: [id number] Name: CHALINO ARGUELLES Rep #: [id number] : 1945 79 From: Hiren Garber DO PCP: Dr. Micky Pendleton MD Status:ADM IN Location: ICU ICU07-1 HPI History of Present Illness Chief Complaint: Numb/Ting Informant: EMS Limited: other (Aphasia) Onset/Context/Timing Onset: Today Context: Sudden Onset Timing: Continuous Quality and Location: Positive for Expressive Aphasia Onset: 2 AM today Narrative Narrative: Patient presents with confusion and not following commands that began this morning. EMS states patient's last known well was around 2 AM today. EMS reports patient has been having some intermittent confusion over the past couple days. EMS reports patient was unable to follow commands but was moving all of her arms and legs. EMS reports patient is nonverbal. [facility] Medical History Hypothyroidism Diabetes Congestive heart failure (CHF) Coronary artery disease Hypertension Home Medications ???Medication ???Instructions ???Recorded ???Last Taken ???Type furosemide 20 mg tablet 20 mg PO DAILY 12/27/24 Unknown Hi story glimepiride 4 mg tablet 4 mg PO BID 12/27/24 Unknown Histo ry hydralazine 25 mg tablet 25 mg PO 4X/DAY 12/27/24 Unknown H istory labetalol 200 mg tablet 600 mg PO BID 12/27/24 Unknown His tory levothyroxine 75 mcg tablet 75 mcg PO 12/27/24 Unknown History lisinopril 30 mg tablet 30 mg PO BID 12/27/24 Unknown Hist ory metformin 1,000 mg tablet 1,000 mg PO BID 12/27/24 Unknown H istory sitagliptin phosphate 100 mg 100 mg PO DAILY 12/27/24 Unknown H istory tablet (Januvia) Allergy/AdvReac Type Severity Reaction Status Date / Time No Known Allergies Allergy Verified 05/01/25 07:50 Social History Smoking Status: Never smoker ROS ROS ED Review of Systems ROS Unobtainable: due to mental status and other Details: Aphasia EXAM Physical Exam Const Vital Signs: 05/01/25 07:47 05/01/25 07:49 05/01/25 07:51 Temperature 97 F L Temperature Source Temporal Pulse Rate 88 83 Respiratory Rate 25 H Blood Pressure 102/83 H 140/70 H Blood Pressure Mean 89 93 Pulse Ox 95 96 Oxygen Delivery Method Room Air Room Air 05/01/25 08:12 05/01/25 08:19 05/01/25 08:30 Temperature Temperature Source Pulse Rate 90 94 95 Respiratory Rate 19 H 21 H 22 H Blood Pressure 102/83 H 155/87 H Blood Pressure Mean 89 109 Pulse Ox 97 96 96 Oxygen Delivery Method Room Air Room Air Room Air 05/01/25 08:53 05/01/25 09:00 05/01/25 09:30 Temperature Temperature Source Pulse Rate 77 91 Respiratory Rate 21 H 17 Blood Pressure 143/82 H 157/88 H Blood Pressure Mean 102 111 Pulse Ox 95 94 97 Oxygen Delivery Method Room Air Room Air Room Air 05/01/25 10:00 05/01/25 10:30 05/01/25 11:00 Temperature Temperature Source Pulse Rate 103 H 94 126 H Respiratory Rate 16 19 H 19 H Blood Pressure 173/97 H Blood Pressure Mean 122 Pulse Ox 95 94 92 Oxygen Delivery Method Room Air Room Air 05/01/25 11:00 05/01/25 11:13 05/01/25 11:15 Temperature Temperature Source Pulse Rate 118 H 101 H 139 H Respiratory Rate 25 H Blood Pressure Blood Pressure Mean Pulse Ox Oxygen Delivery Method 05/01/25 11:30 05/01/25 11:49 05/01/25 12:04 Temperature 99.5 F H Temperature Source Axillary Pulse Rate 138 H 135 H Respiratory Rate 18 25 H Blood Pressure 115/89 H Blood Pressure Mean 97 Pulse Ox 94 95 Oxygen Delivery Method Room Air Room Air 05/01/25 12:30 05/01/25 12:58 05/01/25 13:00 Temperature Temperature Source Pulse Rate 120 H 123 H 116 H Respiratory Rate 26 H 18 28 H Blood Pressure 123/109 H 137/111 H Blood Pressure Mean 113 119 Pulse Ox 96 95 98 Oxygen Delivery Method Room Air Room Air Room Air Positive well nourished and well developed General Appearance ED: well developed and NAD HEENT Reports moist mucous membranes Neck supple and no JVD Resp normal respiratory effort and clear to auscultation bilaterally Cardio Rate: regular rate Rhythm: regular rhythm GI soft to palpation, non-tender and non-distended Extremity General Extremety ED: Negative for deformity or tenderness General Extremity: Negative for deformity Neuro CN's II-XII intact bilaterally Neuro Narrative: Patient is moving all of her extremities but does not follow commands. Patient is nonverbal. There is no facial droop or weakness noted. There are no apparen (more content not included)... Normal [facility] H AND P Exam - Hospitaliston 05-01-2025 H&P Exam - Hospitalist [facility] Medical Records Department [address] [place] [address] H P Exam - Hospitalist 05/01/25 1323 MR#: [id number] Acct: [id number] Name: CHALINO ARGUELLES Rep #: [id number] : 1945 79 From: Haim Barahona MD PCP: Dr. Micky Pendleton MD Status:ADM IN Location: ICU ICU07-1 HPI - General General Date of Admission: 05/01/25 Date of Service: 05/01/25 Chief Complaint: Confusion, altered mental status, fever HPI Narrative CHALINO ARGUELLES, is a 79 F who was brought to ED by her mainly for confusion and altered mental status. As per the who is the main history provider and patient's caregiver; she is not doing well for the last couple days. Initially started vomiting multiple x 5-6 about 3 days ago and then started having dry heaving. Patient not having good oral intake. He denies any usual flulike symptoms, abdominal pain, but she has been slow to walk on the on the walker and decreased alertness/altered mental status and activities of daily living. Patient is not sure about her UTI symptoms. He also said she usually have some loose bowel movement but was not persistent diarrhea. In the morning today patient was more confused, not verbalizing and was rolling on the bed. In ED, she is still not verbalizing confused, laying down in prone position on the bed. Vitals in the ED was noted to have fever about 100.7, tachycardia heart rate 126 to 135/min, with no hypoxia. Labs reviewed in the ED and suggestive of increased anion gap metabolic acidosis, increased creatinine and BUN suggestive of dehydration. There was a stroke alert called in the ED for expressive aphasia and altered mental status but it seems more generalized encephalopathy rather than any focal symptoms. Patient had CT head and CT head and neck in the ED [facility] Medical History (Updated 05/01/25 @ 16:28 by Tiffany Garrett) TIA (transient ischemic attack) Hypothyroidism Diabetes Congestive heart failure (CHF) Coronary artery disease Hypertension Home Medications ???Medication ???Instructions ???Recorded ???Last Taken ???Type furosemide 20 mg tablet 20 mg PO DAILY 12/27/24 Unknown Hi story glimepiride 4 mg tablet 4 mg PO BID 12/27/24 Unknown Histo ry hydralazine 25 mg tablet 25 mg PO 4X/DAY 12/27/24 Unknown H istory labetalol 200 mg tablet 600 mg PO BID 12/27/24 Unknown His tory levothyroxine 75 mcg tablet 75 mcg PO 12/27/24 Unknown History lisinopril 30 mg tablet 30 mg PO BID 12/27/24 Unknown Hist ory metformin 1,000 mg tablet 1,000 mg PO BID 12/27/24 Unknown H istory sitagliptin phosphate 100 mg 100 mg PO DAILY 12/27/24 Unknown H istory tablet (Januvia) aspirin 81 mg tablet,delayed 81 mg PO DAILY heart 05/01/25 Unkn own History release (Adult Aspirin Regimen) cholecalciferol (vitamin D3) 25 25 mcg PO DAILY low d 05/01/25 Unk nown History mcg (1,000 unit) capsule Allergy/AdvReac Type Severity Reaction Status Date / Time No Known Allergies Allergy Verified 05/01/25 07:50 Social History Smoking Status: Never smoker ROS ROS Narrative 14 system ROS unobtainable due to altered mental status Review of Systems ROS Unobtainable: due to encephalopathy and due to mental status Vital Signs Vital Signs Vital Signs: 05/01/25 07:47 05/01/25 07:49 05/01/25 07:51 Temperature 97 F L Temperature Source Temporal Pulse Rate 88 83 Respiratory Rate 25 H Blood Pressure 102/83 H 140/70 H Blood Pressure Mean 89 93 Pulse Ox 95 96 Oxygen Delivery Method Room Air Room Air 05/01/25 08:12 05/01/25 08:19 05/01/25 08:30 Temperature Temperature Source Pulse Rate 90 94 95 Respiratory Rate 19 H 21 H 22 H Blood Pressure 102/83 H 155/87 H Blood Pressure Mean 89 109 Pulse Ox 97 96 96 Oxygen Delivery Method Room Air Room Air Room Air 05/01/25 08:53 05/01/25 09:00 05/01/25 09:30 Temperature Temperature Source Pulse Rate 77 91 Respiratory Rate 21 H 17 Blood Pressure 143/82 H 157/88 H Blood Pressure Mean 102 111 Pulse Ox 95 94 97 Oxygen Delivery Method Room Air Room Air Room Air 05/01/25 10:00 05/01/25 10:30 05/01/25 11:00 Temperature Temperature Source Pulse Rate 103 H 94 126 H Respiratory Rate 16 19 H 19 H Blood Pressure 173/97 H Blood Pressure Mean 122 Pulse Ox 95 94 92 Oxygen Delivery Method Room Air Room Air 05/01/25 11:00 05/01/25 11:13 05/01/25 11:15 Temperature Temperature Source Pulse Rate 118 H 101 H 139 H Respiratory Rate 25 H Blood Pressure Blood Pressure Mean Pulse Ox Oxygen Delivery Method 05/01/25 11:30 05/01/25 11:49 05/01/25 12:04 Temperature 99.5 F H Temperature Source Axillary P (more content not included)... Normal [facility] L501.4021on 05-01-2025 Trop T High Sen 28 ng/L High <=14 [facility] Comment on above: Performed By: #### L 501.5294, L501.5200 #### [facility] [address] [place], [address] L509.6002on 05-01-2025 CORTISOL 104.00 ug/dL High 2.68-10.50 [facility] Comment on above: Performed By: #### L 300.3900, L300.4310, L100.0100, L500.2500, L501.4021 #### [facility] [address] [place], [address] Lactic Acidon 05-01-2025 Lactate [Moles/Vol] 1.9 mmol/L Normal 0.0-2.0 [facility] Comment on above: Performed By: #### L 501.080 #### [facility] [address] [place], [address] Lactate [Moles/Vol] 2.4 mmol/L Invalid Interpretation Code 0.0-2.0 [facility] Comment on above: Order Comment: Y Result Comment: Crit ical Result(s) Called to: Nirav SUNG (ER) by: Toby??Results read back by same. Performed By: #### L 501.080 #### [facility] [address] [place], [address] Legionella Antigen Urineon 1 07-01-2024 LEGU Legionella Antigen result interpretation: L pneumo Ag Ur Ql Negative Presumptive negative for Legionella pneumophila serogroup 1 antigen in urine, suggesting no recent or current infection. Legionella Ag, Urine Negative (See interpretation below) Normal [facility] Comment on above: Performed By: #### L 501.080 #### [facility] [address] [place], [address] Liver Profileon 05-01-2025 Albumin [Mass/Vol] 4.4 g/dL Normal 3.4-4.8 [facility] Comment on above: Performed By: #### L 501.080 #### [facility] [address] [place], [address] ALK PHOS 61 U/L Normal 35-104 [facility] Comment on above: Performed By: #### L 501.080 #### [facility] [address] [place], [address] ALT [Catalytic activity/Vol] 18 U/L Normal <=34 [facility] Comment on above: Performed By: #### L 501.080 #### [facility] [address] [place], [address] AST [Catalytic activity/Vol] 26 U/L Normal <=31 [facility] Comment on above: Performed By: #### L 501.080 #### [facility] [address] [place], [address] Bilirubin [Mass/Vol] 0.69 mg/dL Normal 0.00-1.30 [facility] Comment on above: Performed By: #### L 501.080 #### [facility] [address] [place], [address] Bilirubin.direct [Mass/Vol] 0.28 mg/dL Normal 0.00-0.30 [facility] Comment on above: Performed By: #### L 501.080 #### [facility] [address] [place], [address] Globulin (S) [Mass/Vol] 3.0 g/dL Normal 2.2-4.2 [facility] Comment on above: Performed By: #### L 501.080 #### [facility] [address] [place], [address] T PROT 7.4 g/dL Normal 5.9-8.4 [facility] Comment on above: Performed By: #### L 501.080 #### [facility] [address] [place], [address] M R Staph Aureus DNA by PCRo n 05-01-2025 MRSA DNA ASSAY Negative Normal Negative [facility] Comment on above: Performed By: #### L 501.5294, L501.5200 #### [facility] [address] [place], [address] M100.678on 05-01-2025 M100.678 Pending SARS-CoV-2 (COVID 19) Negative INFLUENZA A Negative INFLUENZA B Negative RSV PCR Negative Normal [facility] Comment on above: Performed By: #### L 501.5294, L501.5200 #### [facility] [address] [place], [address] Magnesiumon 05-01-2025 Magnesium [Mass/Vol] 2.4 mg/dL High 1.5-2.2 [facility] Comment on above: Performed By: #### L 501.080 #### [facility] [address] [place], [address] Magnesium [Mass/Vol] 1.5 mg/dL Normal 1.5-2.2 [facility] Comment on above: Performed By: #### L 501.080 #### [facility] [address] [place], [address] Magnesium [Mass/Vol] 1.7 mg/dL Normal 1.5-2.2 [facility] Comment on above: Performed By: #### L 501.080 #### [facility] [address] [place], [address] Partial Thromboplast Timeon 05-01-2025 aPTT Coag (Bld) [Time] 21.7 s Low 24.1-36.2 [facility] Comment on above: Performed By: #### L 501.5294, L501.5200 #### [facility] [address] [place], [address] Phosphoruson 05-01-2025 Phosphate [Mass/Vol] 3.2 mg/dL Normal 2.7-4.5 [facility] Comment on above: Performed By: #### L 501.080 #### [facility] [address] [place], [address] Phosphate [Mass/Vol] 3.1 mg/dL Normal 2.7-4.5 [facility] Comment on above: Performed By: #### L 300.3900, L300.4310, L100.0100, L500.2500, L501.4021 #### [facility] [address] [place], [address] Pro- Brain NATRIURETIC PEPTI [place] 05-01-2025 Natriuretic peptide B (Bld) [Mass/Vol] 495 pg/mL Normal <=1800 [facility] Comment on above: Result Comment: Hear t Failure Unlikely: < 300 pg/mL Heart Failure Likely < 50 Years: > 450 pg/mL 50-75 Years: > 900 pg/mL >75 Years: > 1800 pg/mL Performed By: #### L 501.080 #### [facility] [address] [place], [address] Prothrombin Time w/INRon INR Coag (PPP) [Relative time] 1.1 {INR} Normal [facility] Comment on above: Performed By: #### L 300.3900, L300.4310, L100.0100, L500.2500, L501.4021 #### [facility] [address] [place], [address] PT Coag (PPP) [Time] 14.0 s Normal 11.7-14.9 [facility] Comment on above: Performed By: #### L 300.3900, L300.4310, L100.0100, L500.2500, L501.4021 #### [facility] [address] [place], [address] STROKE Brain/Head without Co nton 05-01-2025 STROKE Brain/Head without Cont [facility] [address] [place] [address] STROKE Brain/Head without Cont MR#: [id number] Acct: [id number] Name: CHALINO ARGUELLES Rep #: [id number] : 1945 F 79 From: Franki restrepo MD PCP: Dr. Micky Pendleton MD Status: REG ER Study: STROKE Brain/Head without Cont Date of Exam: 07/01/24 Exam# [id number] Ordering Dr: Hiren Garber DO PROCEDURE: STROKE BRAIN/HEAD WITHOUT CONT 05/01/2025 REASON FOR EXAM: NEURO DEFICIT, ACUTE, STROKE SUSPECTED TECHNIQUE: Procedure Code: CTBR.ST Modality: CT Procedure: STROKE BRAIN/HEAD WITHOUT CONT Coronal and Sagittal reconstruction series were provided. One or more dose reduction techniques were used (e.g., Automated exposure control, adjustment of the mA and/or kV according to patient size, use of iterative reconstruction technique. RADIATION DOSE SUMMARY: CTDlvol: 44.99 mGy DLP: 829.85 mGycm COMPARISON: Prior study dated December 27, 2024. FINDINGS: Brain: Low density in the periventricular white matter suggests mild chronic small vessel ischemic changes. Stable 1.1 cm by 1.4 cm densely calcified nodule in the anterior aspect of the right frontal lobe suggestive of a meningioma. No significant surrounding edema is seen. This is unchanged. 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 Calcific plaques of the cavernous portions of the internal carotid arteries bilaterally. CSF Spaces: Mild generalized cerebral atrophy Sinuses/Mastoids: Minimal mucosal thickening of the posterior aspect of the right ethmoid sinus. Bones: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 family history of diabetes mellitus, to the best of her knowledge She continues to report diarrhea, from glimepiride and not much effect after reducing the dose by half on last visit. She claims diarrhea is not due to metformin, but rather due to glimepiride Interval history: 01/15/25: She resumed amaryl 4 mg daily again as instructed, but she reports not being sure if this is once daily or twice daily Continues to take metformin 1000 mg BID and Januvia 100 mg daily as is She reports checking BG every 2 days, but no readings available, brought a log with one BG reading in November 20, 2024 and one from Jul 04, 2024 Reports improvement in blood glucose levels since resuming glimepiride, with previous levels reaching 400 mg/dL. Noted that increased physical activity correlates with lower blood glucose readings. Engages in daily exercise for 30 minutes Reports she has reduced sugar intake, avoiding brownies and cookies; consumes "no sugar added" ice cream occasionally. 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 Irvin Obesity -- Yes Other -- No Diabetic education class: were completed as above Diabetes Medications: -Current regimen: metformin 1000 mg BID, amaryl 4 mg twice daily, Janvuia 100 mg daily -Misses doses: None -Adverse medication effects: reports dizziness with Amaryl She has used Jardiance in the past, but was discontinued due to yeast infection . Blood sugars -Self monitoring of blood sugar via fingerstick: in the past. Few readings as above . Lifestyle -Exercise: 30 mins while watching TV -Diet: Eats all 3 meals, admits to not following a completely diabetic diet or low carb diet She reports eating a lot of carbs now as above . Blood pressure -Current antihypertensive therapy: Lisinopril 30 mg once daily, labetalol 100 mg 4 tablets 2 times a day, hydralazine 25 mg once daily, Lasix 20 mg once daily . Lipids -Last lipid panel: 10/2024 -Currently on Statin therapy: no ROS: 10 point ROS was reviewed and negative unless indicated in the HPI Past Medical History PAST MEDICAL HISTORY Diagnosis Date Acquired hypothyroidism 10/18/2013 Advance directive discussed with patient 11/14/2021 Discussed 10/2021 Arthritis of both knees 12/02/2021 Bilateral nonexudative age-related macular degeneration 03/31/2021 Dr. Mahan Chronic pain of right knee 11/14/2021 Diabetic eye exam (HCC) 04/01/2021 Last done. 09/03/2021. [facility]. Every 4-6 months Encounter for Medicare annual wellness exam (more content not included)... Normal [facility] Culture, Blood (WB)on 2024 CUB Blood cultures x2, from two different sites No growth in 5 days. Normal [facility] Comment on above: Performed By: #### L [id number] #### [facility] [address] [place], [place], [address] Urine Cultureon 12-29-2024 URC Mixed Gram Pos Gram Neg Org [place] Count 80,000-100,000 MIXC Mixed contaminants. Submit a new specimen if indicated. Normal [facility] Comment on above: Performed By: #### L 501.080 #### [facility] [address] [place], [place], [address] Absolute lymphocyte countOrd ered By: Hiren Garber on 12-27-2024 Lymphocytes Auto (Unsp spec) [#/Vol] 1.57 10*3/uL 0.83-4.51 [facility] Absolute neutrophil countOrd ered By: Hiren Garber on 12-27-2024 Neutrophils (Bld) [#/Vol] 8.2 10*3/uL High 2.0-7.7 [facility] Anion gap in Serum or Plasma Ordered By: Hiren Garber on 12-27-2024 Anion gap [Moles/Vol] 15 mmol/L 5-15 [facility] Automated lymphocyte count a s percentage of total leukocytesOrdered By: Hiren Garber on 12-27-2024 Lymphocytes/100 WBC Auto (Unsp spec) 15.1 % Low 19-41 [facility] BUN/creatinine ratioOrdered By: Hiren Garber on 12-27-2024 Urea nitrogen/Creatinine [Mass ratio] 17.4 mg/mg 10- [facility] Basic Metabolic Profile (BMP )on 12-27-2024 BUN/CRE 17.4 RATIO Normal - [facility] Comment on above: Performed By: #### L 300.3900, L300.4310, L100.0100, L500.2500, L501.4021 #### [facility] [address] [place], [address] Calcium [Mass/Vol] 9.8 mg/dL Normal 7.6-11.0 [facility] Comment on above: Performed By: #### L 300.3900, L300.4310, L100.0100, L500.2500, L501.4021 #### [facility] [address] [place], [address] Chloride [Moles/Vol] 98 mmol/L Normal 98-108 [facility] Comment on above: Performed By: #### L 300.3900, L300.4310, L100.0100, L500.2500, L501.4021 #### [facility] [address] [place], [address] CO2 [Moles/Vol] 23.0 mmol/L Normal 21.0-32.0 [facility] Comment on above: Performed By: #### L 300.3900, L300.4310, L100.0100, L500.2500, L501.4021 #### [facility] [address] [place], [address] Creatinine [Mass/Vol] 1.40 mg/dL High 0.70-1.20 [facility] Comment on above: Performed By: #### L 300.3900, L300.4310, L100.0100, L500.2500, L501.4021 #### [facility] [address] [place], [address] ECRCL 28.17 ml/min Low 50-250 [facility] Comment on above: Performed By: #### L 300.3900, L300.4310, L100.0100, L500.2500, L501.4021 #### [facility] [address] [place], [address] GAP 15 Normal 5-15 [facility] Comment on above: Performed By: #### L 300.3900, L300.4310, L100.0100, L500.2500, L501.4021 #### [facility] [address] [place], [address] GFR/1.73 sq M.predicted among non-blacks MDRD (S/P/Bld) [Vol rate/Area] 38 mL/min/{1.73_m2} Low >60 [facility] Comment on above: Result Comment: mL/m in/1.73m2 CKD-EPI Creatinine Equation (2020) Performed By: #### L 300.3900, L300.4310, L100.0100, L500.2500, L501.4021 #### [facility] [address] [place], [address] Glucose [Mass/Vol] 392 mg/dL High 70-99 [facility] Comment on above: Performed By: #### L 300.3900, L300.4310, L100.0100, L500.2500, L501.4021 #### [facility] [address] [place], [address] Potassium [Moles/Vol] 4.4 mmol/L Normal 3.3-5.1 [facility] Comment on above: Performed By: #### L 300.3900, L300.4310, L100.0100, L500.2500, L501.4021 #### [facility] [address] [place], [address] Sodium [Moles/Vol] 136 mmol/L Normal 133-145 [facility] Comment on above: Performed By: #### L 300.3900, L300.4310, L100.0100, L500.2500, L501.4021 #### [facility] [address] [place], [address] Urea nitrogen [Mass/Vol] 24 mg/dL High 4-19 [facility] Comment on above: Performed By: #### L 300.3900, L300.4310, L100.0100, L500.2500, L501.4021 #### [facility] [address] [place], [address] Basophil percentageOrdered B y: Hiren Garber on 12-27-2024 Basophils/100 WBC (Bld) 0.6 % 0-1 [facility] Bedside Glucoseon 12-27-2024 FINGERSTICK GLU 360 mg/dL High 74-106 [facility] Comment on above: Result Comment: NOAH GEMENT OF PATIENT CARE PER NURSING PROTOCOL Performed By: #### L 501.080 #### [facility] [address] [place], [address] FINGERSTICK GLU 400 mg/dL High 74-106 [facility] Comment on above: Result Comment: NOAH GEMENT OF PATIENT CARE PER NURSING PROTOCOL Performed By: #### L 300.3900, L300.4310, L100.0100, L500.2500, L501.4021 #### [facility] [address] [place], [address] Beta-Hydroxbytyrateon 2024 BETA-HYDROXYBUT 0.1 mmol/L Normal 0.0-0.3 [facility] Comment on above: Performed By: #### L 300.3900, L300.4310, L100.0100, L500.2500, L501.4021 #### [facility] [address] [place], [address] Beta-hydroxybutyrateOrdered By: Hiren Garber on 12-27-2024 Beta hydroxybutyrate [Mass/Vol] 0.1 mmol/L 0.0-0.3 [facility] Bilirubin Test strip Ql (U)O rdered By: Hiren Garber on 12-27-2024 Bilirubin Ql (U) Negative Negative [facility] Brain/Head without Contrasto n 12-27-2024 Brain/Head without Contrast [facility] Services [address] [place], [place] [address] Brain/Head without Contrast MR#: [id number] Acct: [id number] Name: CHALINO ARGUELLES Rep #: [id number] : 1945 F 79 From: Franki restrepo MD PCP: NOT,DEFINED Status: REG ER Study: Brain/Head without Contrast Date of Exam: 03/15 Exam# [id number] Ordering Dr: Hiren Garber DO PROCEDURE: BRAIN/HEAD WITHOUT CONTRAST 12/27/2024 REASON FOR EXAM: CONFUSION TECHNIQUE: BRAIN/HEAD WITHOUT CONTRAST Coronal and Sagittal reconstruction series were provided. One or more dose reduction techniques were used (e.g., Automated exposure control, adjustment of the mA and/or kV according to patient size, use of iterative reconstruction technique. RADIATION DOSE SUMMARY: CTDlvol: 44.99 mGy DLP: 796.11 mGycm COMPARISON: None FINDINGS: Brain: Low density in the periventricular white matter suggests mild chronic small vessel ischemic changes. Old tiny lacunar infarct in the head of the left caudate nucleus. There is evidence of a calcified nodule in the anterior medial aspect of the left frontal lobe suggestive of a meningioma. This abuts the anterior aspect of the falx on the right side. CSF Spaces: Mild generalized cerebral atrophy Sinuses/Mastoids: Clear at visualized levels Bones: CT/Brain/Head without Contrast IMPRESSION: Cerebral atrophy. Old tiny lacune in the head of the caudate nucleus on the left side. Findings suggestive of a 1.1 cm x 1.4 cm meningioma in the anterior medial aspect of the right frontal lobe abutting the cerebral falx. Reading Location: [place] [address] CC: DEFINED NOT; Dr. Hiren Schwiger, DO Collaborative Physician: Signed Normal [facility] CBC W/Diff, Automatedon 07-0 -2024 Absolute Lymph 1.57 X10 3/uL Normal 0.83-4.51 [facility] Comment on above: Performed By: #### L 300.3900, L300.4310, L100.0100, L500.2500, L501.4021 #### [facility] [address] [place], [address] Absolute Neut 8.2 X10 3/uL High 2.0-7.7 [facility] Comment on above: Performed By: #### L 300.3900, L300.4310, L100.0100, L500.2500, L501.4021 #### [facility] [address] [place], [address] Basophils/100 WBC (Bld) 0.6 % Normal 0-1 [facility] Comment on above: Performed By: #### L 300.3900, L300.4310, L100.0100, L500.2500, L501.4021 #### [facility] [address] [place], [address] Eosinophils/100 WBC (Bld) 0.5 % Normal 0-5 [facility] Comment on above: Performed By: #### L 300.3900, L300.4310, L100.0100, L500.2500, L501.4021 #### [facility] [address] [place], [address] Erythrocyte distribution width (RBC) [Ratio] 12.7 % Normal 11.6-14.6 [facility] Comment on above: Performed By: #### L 300.3900, L300.4310, L100.0100, L500.2500, L501.4021 #### [facility] [address] [place], [address] Hematocrit (Bld) [Volume fraction] 36.6 % Low 37-47 [facility] Comment on above: Performed By: #### L 300.3900, L300.4310, L100.0100, L500.2500, L501.4021 #### [facility] [address] [place], [address] Hemoglobin (Bld) [Mass/Vol] 12.3 g/dL Normal 12.0-15.0 [facility] Comment on above: Performed By: #### L 300.3900, L300.4310, L100.0100, L500.2500, L501.4021 #### [facility] [address] [place], [address] IG% 0.600 Normal 0.0-0.9 [facility] Comment on above: Result Comment: IG% - Immature Granulocytes (promyelocytes, myelocytes and metamyelocytes) > 1% indicates that a LEFT SHIFT is Present. Performed By: #### L 300.3900, L300.4310, L100.0100, L500.2500, L501.4021 #### [facility] [address] [place], [address] Lymphocytes/100 WBC (Bld) 15.1 % Low 19-41 [facility] Comment on above: Performed By: #### L 300.3900, L300.4310, L100.0100, L500.2500, L501.4021 #### [facility] [address] [place], [address] MCH (RBC) [Entitic mass] 28.9 pg Normal 27.0-32.0 [facility] Comment on above: Performed By: #### L 300.3900, L300.4310, L100.0100, L500.2500, L501.4021 #### [facility] [address] [place], [address] MCHC (RBC) [Mass/Vol] 33.6 g/dL Normal 32-36 [facility] Comment on above: Performed By: #### L 300.3900, L300.4310, L100.0100, L500.2500, L501.4021 #### [facility] [address] [place], [address] MCV (RBC) [Entitic vol] 85.9 fL Normal 81-99 [facility] Comment on above: Performed By: #### L 300.3900, L300.4310, L100.0100, L500.2500, L501.4021 #### [facility] [address] [place], [address] Monocytes/100 WBC (Bld) 4.0 % Normal 0-10 [facility] Comment on above: Performed By: #### L 300.3900, L300.4310, L100.0100, L500.2500, L501.4021 #### [facility] [address] [place], [address] Neutrophils/100 WBC (Bld) 79.2 % High 47-70 [facility] Comment on above: Performed By: #### L 300.3900, L300.4310, L100.0100, L500.2500, L501.4021 #### [facility] [address] [place], [address] Nucleated RBC (Bld) [#/Vol] 0 10*3/uL Normal 0-5 [facility] Comment on above: Performed By: #### L 300.3900, L300.4310, L100.0100, L500.2500, L501.4021 #### [facility] [address] [place], [address] Platelet mean volume (Bld) [Entitic vol] 10.9 fL Normal 6.2-12.0 [facility] Comment on above: Performed By: #### L 300.3900, L300.4310, L100.0100, L500.2500, L501.4021 #### [facility] [address] [place], [address] Platelets (Bld) [#/Vol] 244 10*3/uL Normal 150-450 [facility] Comment on above: Performed By: #### L 300.3900, L300.4310, L100.0100, L500.2500, L501.4021 #### [facility] [address] [place], [address] RBC (Bld) [#/Vol] 4.26 10*6/uL Normal 4.2-5.4 [facility] Comment on above: Performed By: #### L 300.3900, L300.4310, L100.0100, L500.2500, L501.4021 #### [facility] [address] [place], [address] RDW SD 39.5 fl Normal 35.1-43.9 [facility] Comment on above: Performed By: #### L 300.3900, L300.4310, L100.0100, L500.2500, L501.4021 #### [facility] [address] [place], [address] WBC (Bld) [#/Vol] 10.4 10*3/uL Normal 4.4-11.0 [facility] Comment on above: Performed By: #### L 300.3900, L300.4310, L100.0100, L500.2500, L501.4021 #### [facility] [address] [place], [address] CNOVon 12-27-2024 CNOV Office Visit (WOU[facility]) CHALINO ARGUELLES ([id number]) 1945 F Date Time Provider Department 12/27/24 1:45 PM LICO BARBOSA During your visit today, we recorded the following information about you: Lico Barbosa MD 12/27/2024 1:26 PM Signed Patient presents with her out of concern she may be having a stroke. Today she has had confusion, weakness, and trouble producing her speech comprehensively today. He will take her to the emergency room for further evaluation. Allergies As of Date: 12/27/2024 Noted Allergy Reaction PENICILLINS 05/21/2005 2 - Rash SULFA (SULFONAMIDE ANTIBIOTICS) 05/21/2005 2 - Rash HCTZ (HYDROCHLOROTHIAZIDE ) 06/29/2023 16 - Unknown JARDIANCE (EMPAGLIFLOZIN) 03/31/2021 9 - Itching Comments: vaginally NORVASC (AMLODIPINE BESYLATE) 05/21/2005 14 - Other: See Comments Comments: Thinning of the hair Date Reviewed: 12/12/2024 Reviewed by: Eva Crisostomo LPN - Fully Assessed Primary Visit Diagnosis:Confusion [R41.0] Other Visit Diagnosis:Difficulty with speech [R47.9] Prescriptions as of 12/27/2024 - SITagliptin phosphate (JANUVIA) 100 mg tablet Take 1 tablet by mouth once daily. - labetalol (TRANDATE) 200 mg tablet Take 3 tablets by mouth two times a day. - levothyroxine (SYNTHROID) 75 mcg tablet Take 1 tablet by mouth once daily. Mon-Sat and two on Wednesday Take on empty stomach. For Thyroid - blood sugar diagnostic (TRUE METRIX GLUCOSE TEST STRIP) test strip 1 strip once daily. Use with blood glucose test 1 time a day. Insulin Dep? No - metFORMIN (GLUCOPHAGE) 1,000 mg tablet Take 1 tablet by mouth two times a day with meals. - glimepiride (AMARYL) 4 mg tablet Take 1 tablet by mouth two times a day with meals. - lisinopril (ZESTRIL) 30 mg tablet Take 1 tablet by mouth two times a day. - furosemide (LASIX) 20 mg tablet Take 1 tablet by mouth once daily. - hydrALAZINE (APRESOLINE) 25 mg tablet Take 1 tablet by mouth four times daily. - Blood-Glucose Meter (TRUE METRIX GLUCOSE METER) monitoring kit 1 Each once daily as needed. - Lancets Test blood sugar(s) 1 times daily. Dx: E11.22 Insulin: No - Cholecalciferol, Vitamin D3, 1,000 unit cap Take 1 capsule by mouth once daily. Problem List As Of Date 12/27/2024 Noted Resolved Essential hypertension, benign [I10] Type II or unspecified type diabetes mellitus w* 09/28/2012 Obesity, Class I, BMI 30-34.9 [E66.811] 08/15/2012 Uncontrolled type 2 DM with microalbuminuria or*09/28/2012 10/18/2013 Hyperlipidemia, mixed [E78.2] 08/08/2013 Acquired hypothyroidism [E03.9] 10/18/2013 Vitamin D deficiency [E55.9] 10/19/2013 Type 2 diabetes mellitus with stage 3 chronic k*07/31/2015 04/15/2016 Type 1 diabetes mellitus with microalbuminuria *04/15/2016 04/15/2016 Type 2 diabetes mellitus with microalbuminuria,* Mild nonproliferative diabetic retinopathy of l*03/31/2021 Bilateral nonexudative age-related macular dege*03/31/2021 Diabetic eye exam (HCC) [Z01.00, E11.9] 04/01/2021 Other chronic pain [G89.29] 04/02/[address] [Z78.9] 11/14/2021 Advance directive discussed with patient [Z71.8*11/14/2021 Chronic pain of right knee [M25.561, G89.29] 11/14/2021 Arthritis of both knees [M17.0] 12/02/2021 Stage 3a chronic kidney disease (HCC) [N18.31] 08/05/2023 Type 2 diabetes mellitus with stage 3a chronic *09/03/2023 Encounter for Medicare annual wellness exam [Z0*05/05/2024 Encounter Status:Closed by LICO BARBOSA on 12/27/24 Normal [facility] Carbon dioxide, total [Moles /volume] in Central venous bloodOrdered By: Hiren Garber on 12-27-2024 CO2 [Moles/Vol] 23.0 mmol/L 21.0-32.0 [facility] Chest 1 View (Portable)on Chest 1 View (Portable) [facility] Imaging Services [address] [place] [address] Chest 1 View (Portable) MR#: [id number] Acct: [id number] Name: CHALINO ARGUELLES Rep #: [id number] : 1945 F 79 From: Leonidas Bowling MD PCP: NOT,DEFINED Status: REG ER Study: Chest 1 View (Portable) Date of Exam: 12/27/24 Exam# [id number] Ordering Dr: Hiren Garber DO EXAM: XR Chest, 1 View CLINICAL INDICATION: CONFUSION TECHNIQUE: Frontal view of the chest. COMPARISON: No relevant prior studies available. FINDINGS: LUNGS AND PLEURAL SPACES: Unremarkable. No consolidation. No pneumothorax. HEART: Cardiomegaly without overt failure. MEDIASTINUM: Unremarkable. Normal mediastinal contour. BONES/JOINTS: Unremarkable. No acute fracture. RAD/Chest 1 View (Portable) IMPRESSION: Cardiomegaly without overt failure. Reading Location: [facility] CC: DEFINED NOT; Dr. Hiren Garber DO Collaborative Physician: Signed Normal [facility] Chloride assayOrdered By: Librado Garber on 12-27-2024 Chloride [Moles/Vol] 98 mmol/L 98-108 [facility] Emergency Department Summary on 12-27-2024 Emergency Department Summary [facility] Medical Records Department [address] [place] [address] Emergency Department Summary 12/27/24 MR#: [id number] Acct: [id number] Name: CHALINO ARGUELLES Rep #: [id number] : 1945 79 From: iHren Garber DO PCP: Dr. Micky Pendleton MD Status:DEP ER Location: ED HPI History of Present Illness Chief Complaint: Stroke Alert Informant: patient and spouse/S.O. Onset/Context/Timing Onset: Today Context: Sudden Onset Timing: Continuous Quality and Location: Positive for Expressive Aphasia and Receptive Aphasia Onset: 11 AM Worsened by: Nothing Relieved by: Nothing Associated Symptoms Associated Symptoms: Negative for Headache, Nausea, Vomiting or Chest Pain Narrative Narrative: Patient presents with possible stroke that was noticed today. Patient began having difficulty with her speech and having some confusion at 11 AM today (approximately 2 hours 20 minutes prior to arrival). Patient was having confusion and difficulty following commands. reports patient was not making sense when she talked. Patient denies any visual changes. Patient denies any arm or leg weakness. Patient denies any headaches. [facility] Medical History (Updated 12/27/24 @ 17:[address] Triston Stevenson MD) Hypothyroidism Diabetes Congestive heart failure (CHF) Coronary artery disease Hypertension Home Medications ???Medication ???Instructions ???Recorded ???Last Taken ???Type furosemide 20 mg tablet 20 mg PO DAILY 12/27/24 Unknown Hi story glimepiride 4 mg tablet 4 mg PO BID 12/27/24 Unknown Histo ry hydralazine 25 mg tablet 25 mg PO 4X/DAY 12/27/24 Unknown H istory labetalol 200 mg tablet 600 mg PO BID 12/27/24 Unknown His tory levothyroxine 75 mcg tablet 75 mcg PO 12/27/24 Unknown History lisinopril 30 mg tablet 30 mg PO BID 12/27/24 Unknown Hist ory metformin 1,000 mg tablet 1,000 mg PO BID 12/27/24 Unknown H istory sitagliptin phosphate 100 mg 100 mg PO DAILY 12/27/24 Unknown H istory tablet (Januvia) Allergy/AdvReac Type Severity Reaction Status Date / Time No Known Allergies Allergy Verified 12/27/24 13:20 Social History Smoking Status: Never smoker ROS ROS ED Constitutional Constitutional ED: Denies chills or fever(s) Eyes Eyes: Denies blurry vision or diplopia Cardiovascular Cardiovascular: Denies chest pain or palpitations Respiratory/Chest Respiratory/Chest: Denies cough or dyspnea Gastrointestinal Gastrointestinal: Denies nausea or vomiting Neurologic Neurologic: Denies headache(s) or weakness EXAM Physical Exam Const Vital Signs: 12/27/24 13:21 12/27/24 13:27 12/27/24 13:28 Temperature 99 F 99 F 99 F Temperature Source Oral Oral Oral Pulse Rate 108 H 108 H 104 H Respiratory Rate 18 18 24 H Blood Pressure 187/99 H 187/99 H 186/109 H Blood Pressure Mean 128 128 134 Pulse Ox 96 96 95 Oxygen Delivery Method Room Air Room Air Room Air 12/27/24 13:41 12/27/24 13:48 12/27/24 13:50 Temperature Temperature Source Pulse Rate 103 H 103 H 98 Respiratory Rate 21 H 25 H Blood Pressure 167/127 H 203/108 H Blood Pressure Mean 140 133 Pulse Ox 95 93 93 Oxygen Delivery Method Room Air 12/27/24 13:55 12/27/24 14:11 12/27/24 14:12 Temperature Temperature Source Pulse Rate 108 H 110 H Respiratory Rate 24 H 23 H Blood Pressure 231/160 H 157/100 H Blood Pressure Mean 177 114 Pulse Ox 94 Oxygen Delivery Method 12/27/24 14:15 12/27/24 14:20 12/27/24 14:25 Temperature Temperature Source Pulse Rate 107 H 104 H 104 H Respiratory Rate 22 H 24 H 28 H Blood Pressure 164/91 H 159/97 H 187/123 H Blood Pressure Mean 114 111 144 Pulse Ox 95 93 93 Oxygen Delivery Method 12/27/24 14:28 12/27/24 14:30 12/27/24 14:45 Temperature 99.1 F Temperature Source Oral Pulse Rate 105 H 105 H 106 H Respiratory Rate 21 H 25 H 22 H Blood Pressure 167/94 H 167/94 H Blood Pressure Mean 118 117 Pulse Ox 94 93 94 Oxygen Delivery Method Room Air 12/27/24 15:00 12/27/24 15:00 12/27/24 15:17 Temperature 99.1 F Temperature Source Oral Pulse Rate 106 H 112 H Respiratory Rate 14 30 H Blood Pressure 188/122 H Blood Pressure Mean 144 Pulse Ox 95 92 94 Oxygen Delivery Method Room Air 12/27/24 15:22 12/27/24 15:30 12/27/24 15:45 Temperature Temperature Source Pulse Rate 108 H 107 H 106 H Respiratory Rate 21 H 26 H 23 H Blood Pressure 188/122 H 178/114 H Blood Pressure Mean 143 134 Pulse Ox 94 94 96 Oxygen Delivery Method 12/27/24 15:50 12/27/24 15:53 12/27/24 16:00 Temperature Temperature Source Pulse Ra (more content not included)... Normal [facility] Eosinophil percentageOrdered By: Hiren Garber on 12-27-2024 Eosinophils/100 WBC (Bld) 0.5 % 0-5 [facility] Erythrocyte distribution wid th ratioOrdered By: Hiren Garber on 12-27-2024 Erythrocyte distribution width (RBC) [Ratio] 12.7 % 11.6-14.6 [facility] Erythrocyte distribution wid th standard deviationOrdered By: Hiren Garber on 12-27-2024 Erythrocyte distribution width (RBC) [Ratio] 39.5 fl 35.1-43.9 [facility] Glomerular filtration rate ( GFR) estimation/1.73 sq m using serum, plasma, or whole bOrdered By: Hiren Garber on 12-27-2024 GFR/1.73 sq M.predicted among non-blacks MDRD (S/P/Bld) [Vol rate/Area] 38 mL/min/{1.73_m2} Low >60 [facility] Comment on above: mL/min/1.73m2 CKD-EP I Creatinine Equation (2020) [facility]dered By: Hiren Garber on 12-27-2024 Glucose [Mass/Vol] 360 mg/dL High 74-106 [facility] Comment on above: MANAGEMENT OF PATIEN T CARE PER NURSING PROTOCOL Hematocrit Auto (Bld) [Volum e fraction]Ordered By: Hiren Garber on 12-27-2024 Hematocrit (Bld) [Volume fraction] 36.6 % Low 37-47 [facility] Hemoglobin measurementOrdere d By: Hiren Garber on 12-27-2024 Hemoglobin (Bld) [Mass/Vol] 12.3 g/dL 12.0-15.0 [facility] Immature granulocytes/100 WB C Auto (Bld)Ordered By: Hiren Garber on 12-27-2024 Immature granulocytes/100 WBC (Bld) 0.600 % 0.0-0.9 [facility] Comment on above: IG% - Immature Granu locytes (promyelocytes, myelocytes and metamyelocytes) > 1% indicates that a LEFT SHIFT is Present. Ketones Test strip Ql (U)Ord ered By: Hiren Garber on 12-27-2024 Ketones Ql (U) Negative Negative [facility] L499.0042on 12-27-2024 Trop T High Sen 20 ng/L High <=14 [facility] Comment on above: Performed By: #### L 501.5294, L501.5200 #### [facility] Laboratory [address] [place], [address] L499.0043on 12-27-2024 Trop T High Sen 14 ng/L Normal <=14 [facility] Comment on above: Performed By: #### L 501.080 #### [facility] [address] [place], [address] L501.4021on 12-27-2024 Trop T High Sen 24 ng/L High <=14 [facility] Comment on above: Performed By: #### L 300.3900, L300.4310, L100.0100, L500.2500, L501.4021 #### [facility] [address] [place], [address] Lactic Acidon 12-27-2024 Lactate [Moles/Vol] 2.5 mmol/L Invalid Interpretation Code 0.0-2.0 [facility] Comment on above: Result Comment: Crit ical Result(s) Called at: 1841 by: AMIE VÁZQUEZ TO MITZI MONTIEL??Results read back by same. Performed By: #### L 501.080 #### [facility] [address] [place], [address] Lactate [Moles/Vol] 2.9 mmol/L Invalid Interpretation Code 0.0-2.0 [facility] Comment on above: Order Comment: Y Result Comment: Crit ical Result(s) Called at:12-27-24 14:53 TO TALYOR STRAUSS by: DELBERT LEYVA??Results read back by same. Performed By: #### L 300.3900, L300.4310, L100.0100, L500.2500, L501.4021 #### [facility] [address] [place], [address] Lactic acid measurementOrder ed By: Hiren Garber on 12-27-2024 Lactate [Moles/Vol] 2.9 mmol/L High 0.0-2.0 [facility] Comment on above: Critical Result(s) C alled at:12-27-24 14:53 TO TAYLOR STRAUSS by: DELBERT LEYVA Results read back by same. MCV (mean corpuscular volume ) determinationOrdered By: Hiren Garber on 12-27-2024 MCV (RBC) [Entitic vol] 85.9 fL 81-99 [facility] Mean corpuscular hemoglobin (MCH) determinationOrdered By: Hiren Garber on 12-27-2024 MCH (RBC) [Entitic mass] 28.9 pg 27.0-32.0 [facility] Mean corpuscular hemoglobin concentration (MCHC) determinationOrdered By: Hiren Garber on 12-27-2024 MCHC (RBC) [Mass/Vol] 33.6 g/dL 32-36 [facility] Mean platelet volume determi nationOrdered By: Hiren Garber on 12-27-2024 Platelet mean volume (Bld) [Entitic vol] 10.9 fL 6.2-12.0 [facility] Microscopic analysis of urin e for red blood cells (RBC)Ordered By: Hiren Garber on 12-27-2024 Microscopic analysis of urine for red blood cells (RBC) 0-5 SEEN /hpf 0-5 [facility] Monocyte percentageOrdered B y: Hiren Garber on 12-27-2024 Monocytes/100 WBC (Bld) 4.0 % 0-10 [facility] Mucus LM Ql (Urine sed)Order ed By: Hiren Garber on 12-27-2024 Mucus Ql (Urine sed) 0 SEEN /hpf [facility] Neutrophil percentageOrdered By: Hiren Garber on 12-27-2024 Neutrophils/100 WBC (Bld) 79.2 % High 47-70 [facility] Nitrite Test strip Ql (U)Ord ered By: Hiren Garber on 12-27-2024 Nitrite Ql (U) Negative Negative [facility] Nucleated red blood cell per centageOrdered By: Hiren Garber on 12-27-2024 Nucleated RBC/100 WBC (Bld) [Ratio] 0 % 0-5 [facility] Platelet countOrdered By: Librado Garber on 12-27-2024 Platelets (Bld) [#/Vol] 244 10*3/uL 150-450 [facility] Potassium measurement (mass/ volume)Ordered By: Hiren Garber on 12-27-2024 Potassium (Unsp spec) [Mass/Vol] 4.4 mmol/L 3.3-5.1 [facility] Protein Test strip Ql (U)Ord ered By: Hiren Garber on 12-27-2024 Protein Ql (U) 30 mg/dl High Negative [facility] RBC Auto (Bld) [#/Vol]Ordere d By: Hiren Garber on 12-27-2024 RBC (Bld) [#/Vol] 4.26 10*6/uL 4.2-5.4 [facility] Serum creatinine measurement (mass/volume)Ordered By: Hiren Garber on 12-27-2024 Creatinine [Mass/Vol] 1.40 mg/dL High 0.70-1.20 [facility] Serum glucose measurement (m ass/volume)Ordered By: Hiren Garber on 12-27-2024 Glucose [Mass/Vol] 392 mg/dL High 70-99 [facility] Serum or plasma calcium jeremiah urement (mass/volume)Ordered By: Hiren Garber on 12-27-2024 Calcium [Mass/Vol] 9.8 mg/dL 7.6-11.0 [facility] Serum or plasma urea nitroge n measurement (mass/volume)Ordered By: Hiren Garber on 12-27-2024 Urea nitrogen [Mass/Vol] 24 mg/dL High 4-19 [facility] Sodium levelOrdered By: Hiren Garber on 12-27-2024 Sodium [Moles/Vol] 136 mmol/L 133-145 [facility] Squamous epithelial cells de tection in urine sediment by light microscopyOrdered By: Hiren Garber on 12-27-2024 Epithelial cells.squamous LM Ql (Urine sed) 0-5 SEEN /hpf 5-10 [facility] Transitional cells detection in urine sediment by light microscopyOrdered By: Hiren Garber on 12-27-2024 Transitional cells LM Ql (Urine sed) 0-5 SEEN /hpf 0-5 [facility] Troponin T.cardiac [Mass/vol ume] in Serum or Plasma by High sensitivity methodOrdered By: Hiren Garber on 12-27-2024 Troponin T.cardiac High sensitivity method [Mass/Vol] 20 ng/L High <14 [facility] Troponin T.cardiac High sensitivity method [Mass/Vol] 24 ng/L High <14 [facility] Urinalysis, Completeon 12-27 EPI,SQUAMOUS 0-5 SEEN Normal 5-10 [facility] Comment on above: Order Comment: CLEAN CATCH Performed By: #### L 501.080 #### [facility] [address] [place], [address] EPI,TRANSITION 0-5 SEEN Normal 0-5 [facility] Comment on above: Order Comment: CLEAN CATCH Performed By: #### L 501.080 #### [facility] [address] [place], [address] RBC 0-5 SEEN Normal 0-5 [facility] Comment on above: Order Comment: CLEAN CATCH Performed By: #### L 501.080 #### [facility] [address] [place], [address] WBC 0-5 SEEN Normal 0-5 [facility] Comment on above: Order Comment: CLEAN CATCH Performed By: #### L 501.080 #### [facility] [address] [place], [address] BACTERIA 0 SEEN Normal None Seen [facility] Comment on above: Order Comment: CLEAN CATCH Performed By: #### L 501.080 #### [facility] [address] [place], [address] Mucus Ql (Urine sed) 0 SEEN Normal [facility] Comment on above: Order Comment: CLEAN CATCH Performed By: #### L 501.080 #### [facility] [address] [place], [address] Urine clarityOrdered By: Cristal Garber on 12-27-2024 Clarity (U) Clear Clear [facility] Urine color determinationOrd ered By: Hiren Garber on 12-27-2024 Color (U) Straw Yellow [facility] Urine glucose detectionOrder ed By: Hiren Garber on 12-27-2024 Glucose Ql (U) 1000 mg/dl High Normal [facility] Urine leukocyte esterase det ection by dipstickOrdered By: Hiren Garber on 12-27-2024 Leukocyte esterase Test strip Ql (U) Negative Negative [facility] Urine pHOrdered By: Hiren dee on 12-27-2024 pH (U) 6.0 [pH] 5.0 - 8.0 [facility] Urine sediment bacteria coun t by microscopy (number/high power field)Ordered By: Hiren Garber on 12-27-2024 Bacteria LM.HPF (Urine sed) [#/Area] 0 /[HPF] None Seen [facility] Urine specific gravity measu rementOrdered By: Hiren Garber on 12-27-2024 Specific gravity (U) [Rel density] 1.010 1.002-1.030 [facility] Urine urobilinogen measureme ntOrdered By: Hiren Garber on 12-27-2024 Urobilinogen Ql (U) Normal mg/dl Normal [facility] White blood cell (WBC) count Ordered By: Hiren Garber on 12-27-2024 WBC (Bld) [#/Vol] 10.4 10*3/uL 4.4-11.0 [facility] White blood cell countOrdere d By: Hiren Garber on 12-27-2024 White blood cell count 0-5 SEEN /hpf 0-5 [facility] CNOVon 12-12-2024 CNOV Office Visit (FAMPWS) CHALINO [id number]) 1945 F Date Time Provider Department 12/12/24 12:40 PM DEISI CALLE During your visit today, we recorded the following information about you: Temperature Pulse Respiration Blood pressure 98.6 degrees 76/minute 18/minute 122/74 Weight 75.8 kg Deisi Calle PA-C 12/12/2024 1:03 PM Signed Chief Complaint Patient presents with: Follow Up: Blood pressure HPI Chalino Arguelles is a 79 year old female who presents here today for recheck. Hypertension: - Recent medication adjustment: increased labetalol to 600 mg BID. - Previous BP readings at last visit: 152/94 mmHg and 146/90 mmHg. - Current BP: 122/74 mmHg; pulse: 76 bpm. - Home BP monitoring shows similar readings. - Follow-up appointment scheduled for May 01. Past medical history, appointments, medications, allergies reviewed. Previous Medical History PAST MEDICAL HISTORY Diagnosis Date Acquired hypothyroidism 10/18/2013 Advance directive discussed with patient 11/14/2021 Discussed 10/2021 Arthritis of both knees 12/02/2021 Bilateral nonexudative age-related macular degeneration 03/31/2021 Dr. Mahan Chronic pain of right knee 11/14/2021 Diabetic eye exam ([facility]) 04/01/2021 Last done. 09/03/2021. [facility]. Every 4-6 months Encounter for Medicare annual wellness exam 05/05/2024 Last done: 05/05/2024 Essential hypertension, benign Fibroadenosis of breast Hyperlipidemia, mixed 08/08/[address] 11/14/2021 DPA: ? 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 Mahan- [facility] Obesity, Class I, BMI 30-34.9 08/15/2012 Obesity, Class II, BMI 35-39.9 08/15/2012 Other chronic pain 04/02/2021 Right knee pain 04/02/2021 Stage 3a chronic kidney disease (HCC) 08/05/2023 Type 2 diabetes mellitus with microalbuminuria, without long-term current use of insulin (HCC) 04/15/2016 Type 2 diabetes mellitus with stage 3a chronic kidney disease, without long-term current use of insulin (HCC) 09/03/2023 Vitamin D deficiency 10/19/2013 Previous Surgical History PAST SURGICAL HISTORY Procedure Laterality Date STEREOTACTIC CORE BIOPSY 07/05/08 Family History FAMILY HISTORY Problem Relation Age of Onset Arthritis Mother Heart Father Heart Maternal Uncle Hypertension Sister Hypertension Brother Patient Allergies ALLERGIES Allergen Reactions Penicillins Rash Sulfa (Sulfonamide * Rash Hctz [Hydrochloroth* Unknown Jardiance [Empaglif* Itching vaginally Norvasc [Amlodipine* Other: See Comments Thinning of the hair Current Medications Current Outpatient Medications on File Prior to Visit Medication Sig labetalol (TRANDATE) 200 mg tablet Take 3 tablets by mouth two times a day. levothyroxine (SYNTHROID) 75 mcg tablet Take 1 tablet by mouth once daily. Wed-Wed and two on Wednesday Take on empty stomach. For Thyroid blood sugar diagnostic (TRUE METRIX GLUCOSE TEST STRIP) test strip 1 strip once daily. Use with blood glucose test 1 time a day. Insulin Dep? No metFORMIN (GLUCOPHAGE) 1,000 mg tablet Take 1 tablet by mouth two times a day with meals. SITagliptin phosphate (JANUVIA) 100 mg tablet Take 1 tablet by mouth once daily. glimepiride (AMARYL) 4 mg tablet Take 1 tablet by mouth two times a day with meals. lisinopril (ZESTRIL) 30 mg tablet Take 1 tablet by mouth two times a day. furosemide (LASIX) 20 mg tablet Take 1 tablet by mouth once daily. hydrALAZINE (APRESOLINE) 25 mg tablet Take 1 tablet by mouth four times daily. Blood-Glucose Meter (TRUE METRIX GLUCOSE METER) monitoring kit 1 Each once daily as needed. Lancets Test blood sugar(s) 1 times daily. Dx: E11.22 Insulin: No Cholecalciferol, Vitamin D3, 1,000 unit cap Take 1 capsule by mouth once daily. No current facility-administere d medications on file prior to visit. Social History Social History Tobacco Use Smoking status: Never Smokeless tobacco: Never Substance Use Topics Alcohol use: No Drug use: No Review of Symptoms REVIEW OF SYSTEMS SEE HPI EXAM: BP 122/74 (BP Site: Right Arm, BP Position: Sitting, BP Cuff Size: Regular Adult) Pulse 76 Temp 37 ?C (98.6 ?F) Resp 18 Wt 75.8 kg (167 lb) SpO2 96% BMI 34.31 kg/m? General Appearance: Well appearing, alert, in no acute distress, well-hydrated, well nourished.. Lungs: Lungs clear to auscultation. No wheezing, rhonchi, rales.. Heart: RRR without murmur, gallop, or rubs. No ectopy. Health Maintenance List DTaP,Tdap,Td Vaccine(1 - Tdap) Never done Shingrix Vaccine(1 of 2) Never done RSV Vaccine(1 - 1-dose 75+ series) Never done Advance Directive Discussion due on 06/21/2024 Dilated Retinal Exam due on 12/05/2024 Covid-19 Vaccine( season) due on 05/05/2025 HbA (more content not included)... Normal [facility] CNOVon 11-08-2024 CNOV Office Visit (FAMPWS) CHALINO ARGUELLES ([id number]) 1945 F Date Time Provider Department 11/08/24 3:00 PM MICKY PENDLETONAVIVA During your visit today, we recorded the following information about you: Pulse Respiration Blood pressure Weight 80/minute 16/minute 146/90 75.8 kg Micky Pendleton MD 11/08/2024 10:54 PM Signed Chief Complaint Patient presents with: F/U 6 months HPI Chalino Arguelles is a 79 year old female who presents here today for 6 month follow up. Patient with hx of uncontrolled DM2, hyperlipidemia, HTN, hypothyroid, arthritis, obesity, vit D def and those as below. Patient has been doing ok. Seeing Endo for her diabetes. Patient had been increasing the amount of veggies in her diet and started to get loose stools. She thought it was her amaryl and had stopped it but after recently seeing endo she was informed it was not the Amaryl. Patient has restarted the Amaryl. The dose of metformin she is on has been the same for over 11 years. Endo note reviewed. Past medical history, appointments, medications, allergies reviewed. Previous Medical History PAST MEDICAL HISTORY Diagnosis Date Acquired hypothyroidism 10/18/2013 Advance directive discussed with patient 11/14/2021 Discussed 10/2021 Arthritis of both knees 12/02/2021 Bilateral nonexudative age-related macular degeneration 03/31/2021 Dr. Mahan Chronic pain of right knee 11/14/2021 Diabetic eye exam ([facility]) 04/01/2021 Last done. 09/03/2021. [facility]. Every 4-6 months Encounter for Medicare annual wellness exam 05/05/2024 Last done: 05/05/2024 Essential hypertension, benign Fibroadenosis of breast Hyperlipidemia, mixed 08/08/[address] 11/14/2021 DPA: ? 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 Mahan- [facility] Obesity, Class II, BMI 35-39.9 08/15/2012 Other chronic pain 04/02/2021 Right knee pain 04/02/2021 Stage 3a chronic kidney disease ([facility]) 08/05/2023 Type 2 diabetes mellitus with microalbuminuria, without long-term current use of insulin ([facility]) 04/15/2016 Type 2 diabetes mellitus with stage 3a chronic kidney disease, without long-term current use of insulin ([facility]) 09/03/2023 Vitamin D deficiency 10/19/2013 Previous Surgical History PAST SURGICAL HISTORY Procedure Laterality Date STEREOTACTIC CORE BIOPSY 07/05/08 Family History FAMILY HISTORY Problem Relation Age of Onset Arthritis Mother Heart Father Heart Maternal Uncle Hypertension Sister Hypertension Brother Patient Allergies ALLERGIES Allergen Reactions Penicillins Rash Sulfa (Sulfonamide * Rash Hctz [Hydrochloroth* Unknown Jardiance [Empaglif* Itching vaginally Norvasc [Amlodipine* Other: See Comments Thinning of the hair Current Medications Current Outpatient Medications on File Prior to Visit Medication Sig levothyroxine (SYNTHROID) 75 mcg tablet Take 1 tablet by mouth once daily. Wed-Wed and two on Wednesday Take on empty stomach. For Thyroid blood sugar diagnostic (TRUE METRIX GLUCOSE TEST STRIP) test strip 1 strip once daily. Use with blood glucose test 1 time a day. Insulin Dep? No metFORMIN (GLUCOPHAGE) 1,000 mg tablet Take 1 tablet by mouth two times a day with meals. SITagliptin phosphate (JANUVIA) 100 mg tablet Take 1 tablet by mouth once daily. glimepiride (AMARYL) 4 mg tablet Take 1 tablet by mouth two times a day with meals. labetalol (TRANDATE) 100 mg tablet Take 4 tablets by mouth two times a day. lisinopril (ZESTRIL) 30 mg tablet Take 1 tablet by mouth two times a day. furosemide (LASIX) 20 mg tablet Take 1 tablet by mouth once daily. hydrALAZINE (APRESOLINE) 25 mg tablet Take 1 tablet by mouth four times daily. Blood-Glucose Meter (TRUE METRIX GLUCOSE METER) monitoring kit 1 Each once daily as needed. Lancets Test blood sugar(s) 1 times daily. Dx: E11.22 Insulin: No blood sugar diagnostic test strip Use with blood glucose test one to three times daily (Patient not taking: Reported on 10/16/2024) Cholecalciferol, Vitamin D3, 1,000 unit cap Take 1 capsule by mouth once daily. Blood-Glucose Meter, Drum-type (ACCU-CHEK COMPACT PLUS CARE) kit Dx.250.04 checks sugars once daily. No insulin (Patient not taking: Reported on 10/16/2024) No current facility-administere d medications on file prior to visit. Social History Social History Tobacco Use Smoking status: Never Smokeless tobacco: Never Substance Use Topics Alcohol use: No Drug use: No Review of Symptoms REVIEW OF SYSTEMS GENERAL: No unintentional weight loss, malaise or fevers NECK: Negative for lumps, goiter, pain and significant neck swelling RESPIRATORY: Negative for cough, hemoptysis, wheezing, COPD, dyspnea or shortness of breath CARDIOVASCULAR: Negative for chest pain, leg swelli (more content not included)... Normal [facility] HbA1c (Bld)on 11-03-2024 Average glucose Estimated from glycated hemoglobin (Bld) [Mass/Vol] 289 mg/dL Normal [facility] Comment on above: Order Comment: Speci men Type: URINE SPECIMEN Ordering Facility: [facility] Address: [address] [place] [address] Result Comment: eAG: (Estimated average glucose) is a calculated value from HgbA1c and is termite control service representative of the average blood glucose level in the last 2-3 month period. Performed By: #### U ACR #### [facility] CLIA [id number] [address] [place] [address] [place] HbA1c (Bld) [Mass fraction] 11.7 % High 4.3-5.6 [facility] Comment on above: Order Comment: Speci men Type: URINE SPECIMEN Ordering Facility: [facility] Address: [address] [place] [address] Result Comment: Amer [place] Diabetes Association guidelines indicate that patients with HgbA1c in the range 5.7-6.4% are at increased risk for development of diabetes, and intervention by lifestyle modification may be beneficial. HgbA1c greater or equal to 6.5% is considered diagnostic of diabetes. Performed By: #### U ACR #### [facility] CLIA [id number] [address] [place] [address] [place] LIPID PANEL, NONFASTINGon Cholesterol [Mass/Vol] 188 mg/dL Normal <200 [facility] Comment on above: Order Comment: Speci men Type: URINE SPECIMEN Ordering Facility: [facility] Address: [address] [place] [address] Result Comment: <200 mg/dL, Desirable 200-239 mg/dL, Borderline high >239 mg/dL, High Performed By: #### U ACR #### [facility] CLIA [id number] [address] [place] [address] [place] HDL CHOLESTEROL, NF 37 mg/dL Low >39 [facility] Comment on above: Order Comment: Speci men Type: URINE SPECIMEN Ordering Facility: [facility] Address: [address] [place] [address] Result Comment: 40-5 9 mg/dL, Acceptable >59 mg/dL, High: Negative risk factor for coronary heart disease <40 mg/dL, Low: Positive risk factor for coronary heart disease Performed By: #### U ACR #### [facility] CLIA [id number] [address] [place] [address] [place] LDL CHOLESTEROL CALCULATED, NF 107 mg/dL High <100 [facility] Comment on above: Order Comment: Speci men Type: URINE SPECIMEN Ordering Facility: [facility] Address: [address] [place] [address] Result Comment: <100 mg/dL, Optimal 100-129 mg/dL, Near optimal/above optimal 130-159 mg/dL, Borderline high 160-189 mg/dL, High >189 mg/dL, Very high Secondary prevention optimal LDL Cholesterol levels are recommended to be <70 mg/dL LDL cholesterol is calculated using the Wheeler-NIH equation. Performed By: #### U ACR #### [facility] CLIA [id number] [address] [place] [address] [place] LDL/HDL RATIO, NF 2.89 mg/dL High <2.54 [facility] Comment on above: Order Comment: Speci men Type: URINE SPECIMEN Ordering Facility: [facility] Address: [address] [place] [address] Result Comment: Francisca byrd: 1. National Cholesterol Education Program ATP III Guideline At-A-Glance Quick Desk Reference: National Heart, Lung, and Blood [place]. National Institutes of Health. 2001: NIH Publication No. 01-3305. 2. An International Atherosclerosis Society position paper: global recommendations for the management of dyslipidemia: executive summary, Atherosclerosis. 2014: 232(2):410-413. Performed By: #### U ACR #### [facility] CLIA [id number] [address] [place] [address] [place] NON HDL CHOL, NF 151 mg/dL High <130 [facility] Comment on above: Order Comment: Speci men Type: URINE SPECIMEN Ordering Facility: [facility] Address: [address] [place] [address] Result Comment: <130 mg/dL, Optimal 130-159 mg/dL, Near optimal/above optimal 160-189 mg/dL, Borderline high 190-219 mg/dL, High >219 mg/dL, Very high Secondary prevention optimal non HDL Cholesterol levels are recommended to be <100 mg/dL Performed By: #### U ACR #### [facility] CLIA [id number] [address] [place] [address] [place] T CHOL/HDL RATIO NF 5.08 mg/dL Normal <5.10 [facility] Comment on above: Order Comment: Speci men Type: URINE SPECIMEN Ordering Facility: [facility] Address: [address] [place] [address] Performed By: #### U ACR #### [facility] CLIA [id number] [address] [place] [address] [place] TRIGLYCERIDES, NF 258 mg/dL High <150 [facility] Comment on above: Order Comment: Speci men Type: URINE SPECIMEN Ordering Facility: [facility] Address: [address] [place] [address] Result Comment: <150 mg/dL, Normal 150-199 mg/dL, Borderline high 200-499 mg/dL, High >499 mg/dL, Very high Performed By: #### U ACR #### [facility] CLIA [id number] [address] [place] [address] [place] VLDL CHOLESTEROL, NF 43 mg/dL High <30 [facility] Comment on above: Order Comment: Speci men Type: URINE SPECIMEN Ordering Facility: [facility] Address: [address] [place] [address] Performed By: #### U ACR #### [facility] CLIA [id number] [address] [place] [address] [place] TSH SerPl-aCncon 11-03-2024 TSH Qn 2.420 m[IU]/L Normal 0.270-4.200 [facility] Comment on above: Order Comment: Speci men Type: URINE SPECIMEN Ordering Facility: [facility] Address: [address] [place] [address] Performed By: #### U ACR #### [facility] CLIA [id number] [address] [place] [address] [place] Comprehensive metabolic 2000 panelon 10-19-2024 Albumin [Mass/Vol] 4.0 g/dL Normal 3.9-4.9 [facility] Comment on above: Order Comment: Speci men Type: URINE SPECIMEN Ordering Facility: [facility] Address: [address] [place] [address] Performed By: #### U ACR #### [facility] CLIA [id number] [address] [place] [address] [place] ALP [Catalytic activity/Vol] 51 U/L Normal 34-123 [facility] Comment on above: Order Comment: Speci men Type: URINE SPECIMEN Ordering Facility: [facility] Address: [address] [place] [address] Performed By: #### U ACR #### [facility] CLIA [id number] [address] [place] [address] [place] ALT [Catalytic activity/Vol] 14 U/L Normal 7-38 [facility] Comment on above: Order Comment: Speci men Type: URINE SPECIMEN Ordering Facility: [facility] Address: [address] [place] [address] Performed By: #### U ACR #### [facility] CLIA [id number] [address] [place] [address] [place] Anion gap [Moles/Vol] 14 mmol/L Normal 8-15 [facility] Comment on above: Order Comment: Speci men Type: URINE SPECIMEN Ordering Facility: [facility] Address: [address] [place] [address] Performed By: #### U ACR #### [facility] CLIA [id number] [address] [place] [address] [place] AST [Catalytic activity/Vol] 20 U/L Normal 13-35 [facility] Comment on above: Order Comment: Speci men Type: URINE SPECIMEN Ordering Facility: [facility] Address: [address] [place] [address] Performed By: #### U ACR #### [facility] CLIA [id number] [address] [place] [address] [place] Bilirubin [Mass/Vol] 0.3 mg/dL Normal 0.2-1.3 [facility] Comment on above: Order Comment: Speci men Type: URINE SPECIMEN Ordering Facility: [facility] Address: [address] [place] [address] Performed By: #### U ACR #### [facility] CLIA [id number] [address] [place] [address] [place] Calcium [Mass/Vol] 9.2 mg/dL Normal 8.5-10.2 [facility] Comment on above: Order Comment: Speci men Type: URINE SPECIMEN Ordering Facility: [facility] Address: [address] [place] [address] Performed By: #### U ACR #### [facility] CLIA [id number] [address] [place] [address] [place] Chloride [Moles/Vol] 96 mmol/L Low 98-107 [facility] Comment on above: Order Comment: Speci men Type: URINE SPECIMEN Ordering Facility: [facility] Address: [address] [place] [address] Performed By: #### U ACR #### [facility] CLIA [id number] [address] [place] [address] [place] CO2 [Moles/Vol] 25 mmol/L Normal 22-30 [facility] Comment on above: Order Comment: Speci men Type: URINE SPECIMEN Ordering Facility: [facility] Address: [address] [place] [address] Performed By: #### U ACR #### [facility] CLIA [id number] [address] [place] [address] [place] Creatinine [Mass/Vol] 1.21 mg/dL High 0.58-0.96 [facility] Comment on above: Order Comment: Speci men Type: URINE SPECIMEN Ordering Facility: [facility] Address: [address] [place] [address] Performed By: #### U ACR #### [facility] CLIA [id number] [address] [place] [address] [place] Creatinine and Glomerular filtration rate.predicted panel (S/P/Bld) 45 mL/min/1.73m??? Low >=60 [facility] Comment on above: Order Comment: Speci men Type: URINE SPECIMEN Ordering Facility: [facility] Address: [address] [place] [address] Result Comment: Sushma mated Glomerular Filtration Rate (eGFR) is calculated using the 2020 CKD-EPI creatinine equation. This equation utilizes serum creatinine, sex, and age as parameters. The creatinine assay has traceable calibration to isotope dilution-mass spectrometry. Refer to KDIGO guidelines for clinical interpretation. In patients with unstable renal function, e.g. those with acute kidney injury, the eGFR may not accurately reflect actual GFR. Performed By: #### U ACR #### [facility] CLIA [id number] [address] [place] [address] [place] Glucose [Mass/Vol] 294 mg/dL High 74-99 [facility] Comment on above: Order Comment: Speci men Type: URINE SPECIMEN Ordering Facility: [facility] Address: [address] [place] [address] Result Comment: The [place] Diabetes Association (ADA) provides guidance for cutoff values for fasting glucose and random glucose. The ADA defines fasting as no caloric intake for at least 8 hours. Fasting plasma glucose results between 100 to 125 mg/dL indicate increased risk for diabetes (prediabetes). Fasting plasma glucose results greater than or equal to 126 mg/dL meet the criteria for diagnosis of diabetes. In the absence of unequivocal hyperglycemia, results should be confirmed by repeat testing. In a patient with classic symptoms of hyperglycemia or hyperglycemic crisis, random plasma glucose results greater than or equal to 200 mg/dL meet the criteria for diagnosis of diabetes. Reference: Standards of Medical Care in Diabetes 2016, [place] Diabetes Association. Diabetes Care. 2016.39(Suppl 1). Performed By: #### U ACR #### [facility] CLIA [id number] [address] [place] [address] [place] Potassium [Moles/Vol] 4.2 mmol/L Normal 3.7-5.1 [facility] Comment on above: Order Comment: Speci men Type: URINE SPECIMEN Ordering Facility: [facility] Address: [address] [place] [address] Performed By: #### U ACR #### [facility] CLIA [id number] [address] [place] [address] [place] Protein [Mass/Vol] 6.6 g/dL Normal 6.3-8.0 [facility] Comment on above: Order Comment: Speci men Type: URINE SPECIMEN Ordering Facility: [facility] Address: [address] [place] [address] Performed By: #### U ACR #### [facility] CLIA [id number] [address] [place] [address] [place] Sodium [Moles/Vol] 135 mmol/L Low 136-144 [facility] Comment on above: Order Comment: Speci men Type: URINE SPECIMEN Ordering Facility: [facility] Address: [address] [place] [address] Performed By: #### U ACR #### [facility] CLIA [id number] [address] [place] [address] [place] Urea nitrogen [Mass/Vol] 16 mg/dL Normal 7-21 [facility] Comment on above: Order Comment: Speci men Type: URINE SPECIMEN Ordering Facility: [facility] Address: [address] [place] [address] Performed By: #### U ACR #### [facility] CLIA [id number] [address] [place] [address] [place] CNOVon 10-16-2024 CNOV Office Visit (ENWSTR) CHALINO ARGUELLES ([id number]) 1945 F Date Time Provider Department 10/16/24 4:20 PM DUNG AARON During your visit today, we recorded the following information about you: Temperature Pulse Weight 97.7 degrees 67/minute 75.2 kg Dung Aaron MD 10/16/2024 6:17 PM Signed [facility] Follow up visit History of present illness: This is a 79-year old female with past medical history significant for poorly controlled type 2 diabetes mellitus, complicated by nonproliferative diabetic retinopathy, diabetic nephropathy, hypertension, hyperlipidemia, congestive heart failure who is presenting for management of diabetes Last visit 02/2024 -Initially diagnosed: at the age of 58 years -Circumstances around diagnosis: on routine labs She was started on metformin 500 mg daily by her family doctor, Dr. Irvin She reported going to a course for diabetes/diabetes education class when she was first diagnosed with diabetes 20 years ago, where she was started about dietary modifications and exercise, with provision of meals at the same course, and distribution of booklets for helping diabetics. She reports following these for a couple of years when her blood sugar control was good. She was also exercising at that time at the [facility] for 3 times a week, which also helped her blood sugars. She reports she has not been doing any exercise due to closure of [facility] during . She also reports not following the diet anymore. She reported seeing plastic card grader cardroom few months ago- reports was not helpful and does not want to go back to higher or any nutrition counseling/diabetes education programs. She would like to follow what she learned about 20 years ago. She denied any history of surgical procedures on the pancreas, pancreatic cancer, pancreatitis or hospitalizations for DKA or HHS Denies any family history of diabetes mellitus, to the best of her knowledge She continues to report diarrhea, from glimepiride and not much effect after reducing the dose by half on last visit. She claims diarrhea is not due to metformin, but rather due to glimepiride Interval history: 10/16/24: She reports she missed her 06/2024 appt due to being sick for a long time She was on amaryl 4 mg daily, but she admits today that I was right saying her loose stools were not due to this medication after she changed her diet. She went to art glimepiride 4 mg twice daily- and ran out of the medication for one month or more. 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 Irvin Obesity -- Yes Other -- No Diabetic education class: were completed as above Diabetes Medications: -Current regimen: metformin 1000 mg BID, amaryl 4 mg twice daily, Janvuia 100 mg daily -Misses doses: None -Adverse medication effects: reports dizziness with Amaryl She has used Jardiance in the past, but was discontinued due to yeast infection . Blood sugars -Self monitoring of blood sugar via fingerstick: in the past. Has ran out and reports she was denied refills by the pharmacy. Has not been checking finger stick BG . Lifestyle -Exercise: no routine exercise -Diet: Eats all 3 meals, admits to not following a completely diabetic diet or low carb diet She reports eating a lot of carbs now . Blood pressure -Current antihypertensive therapy: Lisinopril 30 mg once daily, labetalol 100 mg 4 tablets 2 times a day, hydralazine 25 mg once daily, Lasix 20 mg once daily . Lipids -Last lipid panel: 07/2023 -Currently on Statin therapy: no ROS: 10 point ROS was reviewed and negative unless indicated in the HPI Past Medical History PAST MEDICAL HISTORY Diagnosis Date Acquired hypothyroidism 10/18/2013 Advance directive discussed with patient 11/14/2021 Discussed 10/2021 Arthritis of both knees 12/02/2021 Bilateral nonexudative age-related macular degeneration 03/31/2021 Dr. Mahan Chronic pain of right knee 11/14/2021 Diabetic eye exam (HCC) 04/01/2021 Last done. 09/03/2021. [facility]. Every 4-6 months Encounter for Medicare annual wellness exam 05/05/2024 Last done: 05/05/2024 Essential hypertension, benign Fibroadenosis of breast Hyperlipidemia, mixed 08/08/[address] 11/14/2021 DPA: ? 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 Mahan- (more content not included)... Normal [facility] HEMOGLOBIN A1C (POC)on 10-16 HbA1c (Bld) [Mass fraction] 12.1 % Abnormal 4.3 - 5.6 % [facility] Comment on above: Location:[facility], [address], [place], [address] Point of care (POC) Hemoglobin A1c (HGBA1C) testing is intended to assess glucose control and provide a management tool for patients known to have diabetes and their healthcare providers. Target HGBA1C levels may depend on specific clinical circumstances. POC HGBA1C is not intended for use as a diagnostic or screening test; laboratory-based testing should be used for diagnostic purposes. The following information is supplemental and may not be applicable to specific diabetes management situations: The POC device ged teacher provides a normal range of 4.2% to 6.5% for the HGBA1C POC test. However, the [place] Diabetes Association guidelines indicate that patients with HGBA1C in the range of 5.7% to 6.4% are at increased risk for development of diabetes and that intervention by lifestyle modification may be beneficial. A HGBA1C level greater than or equal to 6.5% is considered diagnostic of diabetes, pending confirmatory testing. Use of HGBA1C testing to evaluate glucose control may not be appropriate for patients with hemoglobin variants or other conditions (e.g. anemia) that alter red blood cell lifespan. Interpretation and review of laboratory results Abnormal [facility] CNPNon 09-20-2024 CNPN Telephone (FAMPWS) CHALINO ARGUELLES ([id number]) 1945 F Date Time Provider Department 09/20/24 MICKY PENDLETON During your visit today, we recorded the following information about you: Joe Mariana Hoffman Orquidea 09/20/2024 4:07 PM Signed Patient has been taking 2 tablets of glimepiride instead of the once a day. She states she had loose bowels and was placed on 1 a day and her symptoms did not improve. She realized at the time that it was the increase in raw vegetables that was creating the loose BM, so on her own she restarted the glimepiride twice a day. She has now been out of the medication for the week and is requesting it be sent to [facility] in [place] for the original 2 pills daily. Please contact Chalino when it has been handled. [phone] Mariana Tate MA 2024 7:59 AM Signed This was taken care of in another encounter. Mariana Tate MA Allergies As of Date: 09/20/2024 Noted Allergy Reaction PENICILLINS 05/21/2005 2 - Rash SULFA (SULFONAMIDE ANTIBIOTICS) 05/21/2005 2 - Rash HCTZ (HYDROCHLOROTHIAZIDE ) 06/29/2023 16 - Unknown JARDIANCE (EMPAGLIFLOZIN) 03/31/2021 9 - Itching Comments: vaginally NORVASC (AMLODIPINE BESYLATE) 05/21/2005 14 - Other: See Comments Comments: Thinning of the hair Date Reviewed: 05/05/2024 Reviewed by: Micky Pendleton MD - Fully Assessed Reason for Visit: Refill Request [94] Prescriptions as of 2024 - SITagliptin phosphate (JANUVIA) 100 mg tablet Take 1 tablet by mouth once daily. - furosemide (LASIX) 20 mg tablet Take 1 tablet by mouth once daily. - glimepiride (AMARYL) 4 mg tablet Take 1 tablet by mouth once daily. - hydrALAZINE (APRESOLINE) 25 mg tablet Take 1 tablet by mouth four times daily. - levothyroxine (SYNTHROID) 75 mcg tablet Take 1 tablet by mouth once daily. Mon-Sat and two on Wednesday Take on empty stomach. For Thyroid - metFORMIN (GLUCOPHAGE) 1,000 mg tablet Take 1 tablet by mouth two times a day with meals. - labetalol (TRANDATE) 100 mg tablet Take 4 tablets by mouth two times a day. - lisinopril (ZESTRIL) 30 mg tablet Take 1 tablet by mouth two times a day. - Blood-Glucose Meter (TRUE METRIX GLUCOSE METER) monitoring kit 1 Each once daily as needed. - blood sugar diagnostic (TRUE METRIX GLUCOSE TEST STRIP) test strip 1 Strip once daily. Use with blood glucose test 1 time a day. Insulin Dep? No - Lancets Test blood sugar(s) 1 times daily. Dx: E11.22 Insulin: No - blood sugar diagnostic test strip Use with blood glucose test one to three times daily - Cholecalciferol, Vitamin D3, 1,000 unit cap Take 1 capsule by mouth once daily. - Blood-Glucose Meter, Drum-type (ACCU-CHEK COMPACT PLUS CARE) kit Dx.250.04 checks sugars once daily. No insulin Problem List As Of Date 09/20/2024 Noted Resolved Essential hypertension, benign [I10] Type II or unspecified type diabetes mellitus w* 09/28/2012 Obesity, Class II, BMI 35-39.9 [E66.812] 08/15/2012 Uncontrolled type 2 DM with microalbuminuria or*09/28/2012 10/18/2013 Hyperlipidemia, mixed [E78.2] 08/08/2013 Acquired hypothyroidism [E03.9] 10/18/2013 Vitamin D deficiency [E55.9] 10/19/2013 Type 2 diabetes mellitus with stage 3 chronic k*07/31/2015 04/15/2016 Type 1 diabetes mellitus with microalbuminuria *04/15/2016 04/15/2016 Type 2 diabetes mellitus with microalbuminuria,* Mild nonproliferative diabetic retinopathy of l*03/31/2021 Bilateral nonexudative age-related macular dege*03/31/2021 Diabetic eye exam (HCC) [Z01.00, E11.9] 04/01/2021 Other chronic pain [G89.29] 04/02/[address] [Z78.9] 11/14/2021 Advance directive discussed with patient [Z71.8*11/14/2021 Chronic pain of right knee [M25.561, G89.29] 11/14/2021 Arthritis of both knees [M17.0] 12/02/2021 Stage 3a chronic kidney disease (HCC) [N18.31] 08/05/2023 Type 2 diabetes mellitus with stage 3a chronic *09/03/2023 Encounter for Medicare annual wellness exam [Z0*05/05/2024 Encounter Status:Closed by MARIANA TATE on 09/21/24 [facility] CNOVon 05-05-2024 CNOV Office Visit (FAMPWS) CHALINO ARGUELLES ([id number]) 1945 F Date Time Provider Department 05/05/24 2:20 PM [facility] During your visit today, we recorded the following information about you: Pulse Respiration Blood pressure Weight 76/minute 16/minute 136/84 78 kg Height 1.486 m Micky Pendleton MD 05/06/2024 7:56 AM Signed Chalino Arguelles is a 78 year old female here for a Medicare wellness visit. Medicare Health Risk Assessment General Health Very good Exercise: Minutes/Day 0 min Exercise: Days/Week 0 days Alcohol: Daily Use Never Alcohol: Drinks/Day Patient does not drink Alcohol: 6 or more drinks Never Feel off balance No (uses cane when going outside) Concerns: Teeth/Dentures No Concerns: Sexual function No Troubled by feelings None of the above Frequency: Eating healthy diet Nearly every day ADLs requiring help None of the above Safety precautions in home/vehicle No Smoke, vape, chews tobacco No Difficulty hearing No Difficulty seeing No Current Providers Specialists: I have reviewed specialist-related care of the patient in the medical record. Current care team: Patient Care Team: Micky Pendleton MD as PCP - General (Family Medicine) Deisi Calle PA-C (Family Medicine) Dr. Aaron: Endo Optho Medical/Family history review Reviewed and updated problem list, medical/surgical/fam shashank/social history, medications, and allergies. Opioid use review Opioid Medications (last 90 days) No data to display Anxiety/Depression screening PHQ-2 Score: 0 (Lower risk for depression) Recommendation: no further intervention at this time Cognitive screening Score: 5 Cognitive screening reviewed and No further action needed (score 3-5). Functional Observation Was the patient's Timed Up AND Go test unsteady or >= 12 seconds? No Advance Care Planning Surrogate decision maker and/or advance care plan documented Measurements BP 136/84 Pulse 76 Resp 16 Ht 148.6 cm (4' 10.5") Wt 78 kg (172 lb) BMI 35.34 kg/m? Vision Screening: Follows with optometry/ophthalmol ogy Assessment/Plan Medicare annual wellness visit, subsequent (Z00.00) - Counseled on healthy diet and regular exercise - Fall avoidance information provided - Personalized prevention plan provided See Below Chief Complaint Patient presents with: Medicare Wellness Exam HPI Chalino Arguelles is a 78 year old female who presents here today for Medicare Annual Visit and extensive exam. Patient with hx of uncontrolled DM2, hyperlipidemia, HTN, hypothyroid, arthritis, obesity, vit D def and those as below. Patient has been doing ok. Seeing Endo for her diabetes. Past medical history, appointments, medications, allergies reviewed. Previous Medical History PAST MEDICAL HISTORY Diagnosis Date Acquired hypothyroidism 10/18/2013 Advance directive discussed with patient 11/14/2021 Discussed 10/2021 Arthritis of both knees 12/02/2021 Bilateral nonexudative age-related macular degeneration 03/31/2021 Dr. Mahan Chronic pain of right knee 11/14/2021 Diabetic eye exam (HCC) 04/01/2021 Last done. 09/03/2021. [facility]. Every 4-6 months Encounter for Medicare annual wellness exam 05/05/2024 Last done: 05/05/2024 Essential hypertension, benign Essential hypertension, benign 11/29/2014: Home BP Cuff Validated. Home BP: 141/80 76 Office BP: 151/88 73 Fibroadenosis of breast Hyperlipidemia associated with type 2 diabetes mellitus (HCC) (HCC) 11/15/2014 Hyperlipidemia LDL goal < 100 08/08/2013 Hypothyroidism 10/18/[address] 11/14/2021 DPA: ? 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 08/15/2012 Obesity, Class II, BMI 35-39.9 08/15/2012 Other and unspecified hyperlipidemia Other chronic pain 04/02/2021 Right knee pain 04/02/2021 Stage 3a chronic kidney disease ([facility]) 08/05/2023 Type 2 diabetes mellitus with microalbuminuria, without long-term current use of insulin ([facility]) 04/15/2016 Type 2 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dney disease ([facility]) 07/31/2015 Type 2 diabetes mellitus with stage 3a chronic kidney disease, without long-term current use of insulin ([facility]) 09/03/2023 Type II or unspecified type diabetes mellitus without mention of complication, not stated as uncontrolled Uncontrolled type 2 DM with microalbuminuria or microproteinuria 09/28/2012 Vitamin D deficiency 10/19/2013 Previous Surgical History PAST SURGICAL HISTORY Procedure Laterality Date STEREOTACTIC CORE BIOPSY 07/05/08 Family History FAMILY HISTORY Problem Relation Age of Onset Arthritis Mother Heart Father Heart Maternal Uncle Hypertension Sister Hypertension Brother Patient Allergies ALLERGIES Allergen Reactio (more content not included)... Normal [facility] 25(OH)D3 [facility] 2023 25-hydroxyvitamin D3 [Mass/Vol] 40.0 ng/mL Normal 31.0-80.0 [facility] Comment on above: Order Comment: Speci men Type: URINE SPECIMEN Ordering Facility: [facility] Address: [address] [place] [address] Result Comment: Clas sification of 25 [place] Vitamin D status: Deficiency/Insufficiency: < or = 30 ng/ml. Sufficiency/Optimal Levels: 31-80 ng/mL Toxicity: > 100 ng/mL. Test performed by chemiluminescent immunoassay. Performed By: #### U ACR #### [facility] CLIA [id number] [address] [place] [address] [place] [address] [place] ALBUMIN/CREATININE RATIO, UR INEon 05-04-2024 Albumin DL <= 20 mg/L (U) [Mass/Vol] 53.1 mg/L Normal [facility] Comment on above: Order Comment: Speci men Type: URINE SPECIMEN Ordering Facility: [facility] Address: [address] [place] [address] Performed By: #### U ACR #### [facility] CLIA [id number] [address] [place] [address] [place] Albumin/Creatinine (U) [Mass ratio] 129 mg/g High <30 [facility] Comment on above: Order Comment: Speci men Type: URINE SPECIMEN Ordering Facility: [facility] Address: [address] [place] [address] Result Comment: Adul t Male and Female Nephrotic Criteria: <30 mg/g is considered normal to mildly increased 30-300 mg/g is considered moderately increased >300 mg/g is considered severely increased KDIGO. (2013). KDIGO 2012 Clinical Practice Guideline for the Evaluation and Management of Chronic Kidney Disease. Official Journal of the International Society of Nephrology, 3(1), 1-150. Performed By: #### U ACR #### [facility] CLIA [id number] [address] [place] [address] [place] Creatinine (U) [Mass/Vol] 41.1 mg/dL Normal 20.0-300.0 [facility] Comment on above: Order Comment: Speci men Type: URINE SPECIMEN Ordering Facility: [facility] Address: [address] [place] [address] Performed By: #### U ACR #### [facility] CLIA [id number] [address] [place] [address] [place] CBC W Auto Differential pane l (Bld)on 05-04-2024 Basophils (Bld) [#/Vol] 0.05 10*3/uL Normal <0.11 [facility] Comment on above: Order Comment: Speci men Type: URINE SPECIMEN Ordering Facility: [facility] Address: [address] [place] [address] Performed By: #### U ACR #### [facility] CLIA [id number] [address] [place] [address] [place] Basophils/100 WBC (Bld) 0.7 % Normal [facility] Comment on above: Order Comment: Speci men Type: URINE SPECIMEN Ordering Facility: [facility] Address: [address] [place] [address] Performed By: #### U ACR #### [facility] CLIA [id number] [address] [place] [address] [place] Differential cell count method Nom (Bld) Auto Normal [facility] Comment on above: Order Comment: Speci men Type: URINE SPECIMEN Ordering Facility: [facility] Address: [address] [place] [address] Performed By: #### U ACR #### [facility] CLIA [id number] [address] [place] [address] [place] Eosinophils (Bld) [#/Vol] 0.03 10*3/uL Normal <0.46 [facility] Comment on above: Order Comment: Speci men Type: URINE SPECIMEN Ordering Facility: [facility] Address: [address] [place] [address] Performed By: #### U ACR #### [facility] CLIA [id number] [address] [place] [address] [place] Eosinophils/100 WBC (Bld) 0.4 % Normal [facility] Comment on above: Order Comment: Speci men Type: URINE SPECIMEN Ordering Facility: [facility] Address: [address] [place] [address] Performed By: #### U ACR #### [facility] CLIA [id number] [address] [place] [address] [place] Erythrocyte distribution width (RBC) [Ratio] 12.3 % Normal 11.5-15.0 [facility] Comment on above: Order Comment: Speci men Type: URINE SPECIMEN Ordering Facility: [facility] Address: [address] [place] [address] Performed By: #### U ACR #### [facility] CLIA [id number] [address] [place] [address] [place] Hematocrit (Bld) [Volume fraction] 37.7 % Normal 36.0-46.0 [facility] Comment on above: Order Comment: Speci men Type: URINE SPECIMEN Ordering Facility: [facility] Address: [address] [place] [address] Performed By: #### U ACR #### [facility] CLIA [id number] [address] [place] [address] [place] Hemoglobin (Bld) [Mass/Vol] 12.3 g/dL Normal 11.5-15.5 [facility] Comment on above: Order Comment: Speci men Type: URINE SPECIMEN Ordering Facility: [facility] Address: [address] [place] [address] Performed By: #### U ACR #### [facility] CLIA [id number] [address] [place] [address] [place] Immature granulocytes (Bld) [#/Vol] 0.03 10*3/uL Normal <0.10 [facility] Comment on above: Order Comment: Speci men Type: URINE SPECIMEN Ordering Facility: [facility] Address: [address] [place] [address] Performed By: #### U ACR #### [facility] CLIA [id number] [address] [place] [address] [place] Immature granulocytes/100 WBC (Bld) 0.4 % Normal [facility] Comment on above: Order Comment: Speci men Type: URINE SPECIMEN Ordering Facility: [facility] Address: [address] [place] [address] Performed By: #### U ACR #### [facility] CLIA [id number] [address] [place] [address] [place] Lymphocytes (Bld) [#/Vol] 1.38 10*3/uL Normal 1.00-4.00 [facility] Comment on above: Order Comment: Speci men Type: URINE SPECIMEN Ordering Facility: [facility] Address: [address] [place] [address] Performed By: #### U ACR #### [facility] CLIA [id number] [address] [place] [address] [place] Lymphocytes/100 WBC (Bld) 20.2 % Normal [facility] Comment on above: Order Comment: Speci men Type: URINE SPECIMEN Ordering Facility: [facility] Address: [address] [place] [address] Performed By: #### U ACR #### [facility] CLIA [id number] [address] [place] [address] [place] MCH (RBC) [Entitic mass] 28.5 pg Normal 26.0-34.0 [facility] Comment on above: Order Comment: Speci men Type: URINE SPECIMEN Ordering Facility: [facility] Address: [address] [place] [address] Performed By: #### U ACR #### [facility] CLIA [id number] [address] [place] [address] [place] MCHC (RBC) [Mass/Vol] 32.6 g/dL Normal 30.5-36.0 [facility] Comment on above: Order Comment: Speci men Type: URINE SPECIMEN Ordering Facility: [facility] Address: [address] [place] [address] Performed By: #### U ACR #### [facility] CLIA [id number] [address] [place] [address] [place] MCV (RBC) [Entitic vol] 87.3 fL Normal 80.0-100.0 [facility] Comment on above: Order Comment: Speci men Type: URINE SPECIMEN Ordering Facility: [facility] Address: [address] [place] [address] Performed By: #### U ACR #### [facility] CLIA [id number] [address] [place] [address] [place] Monocytes (Bld) [#/Vol] 0.35 10*3/uL Normal <0.87 [facility] Comment on above: Order Comment: Speci men Type: URINE SPECIMEN Ordering Facility: [facility] Address: [address] [place] [address] Performed By: #### U ACR #### [facility] CLIA [id number] [address] [place] [address] [place] Monocytes/100 WBC (Bld) 5.1 % Normal [facility] Comment on above: Order Comment: Speci men Type: URINE SPECIMEN Ordering Facility: [facility] Address: [address] [place] [address] Performed By: #### U ACR #### [facility] CLIA [id number] [address] [place] [address] [place] Neutrophils (Bld) [#/Vol] 4.98 10*3/uL Normal 1.45-7.50 [facility] Comment on above: Order Comment: Speci men Type: URINE SPECIMEN Ordering Facility: [facility] Address: [address] [place] [address] Performed By: #### U ACR #### [facility] CLIA [id number] [address] [place] [address] [place] Neutrophils/100 WBC (Bld) 73.2 % Normal [facility] Comment on above: Order Comment: Speci men Type: URINE SPECIMEN Ordering Facility: [facility] Address: [address] [place] [address] Performed By: #### U ACR #### [facility] CLIA [id number] [address] [place] [address] [place] Nucleated RBC (Bld) [#/Vol] 10*3/uL Normal <0.01 [facility] Comment on above: Order Comment: Speci men Type: URINE SPECIMEN Ordering Facility: [facility] Address: [address] [place] [address] Performed By: #### U ACR #### [facility] CLIA [id number] [address] [place] [address] [place] Nucleated RBC/100 WBC (Bld) [Ratio] 0.0 /100 WBC Normal [facility] Comment on above: Order Comment: Speci men Type: URINE SPECIMEN Ordering Facility: [facility] Address: [address] [place] [address] Performed By: #### U ACR #### [facility] CLIA [id number] [address] [place] [address] [place] Platelet mean volume (Bld) [Entitic vol] 11.3 fL Normal 9.0-12.7 [facility] Comment on above: Order Comment: Speci men Type: URINE SPECIMEN Ordering Facility: [facility] Address: [address] [place] [address] Performed By: #### U ACR #### [facility] CLIA [id number] [address] [place] [address] [place] Platelets (Bld) [#/Vol] 241 10*3/uL Normal 150-400 [facility] Comment on above: Order Comment: Speci men Type: URINE SPECIMEN Ordering Facility: [facility] Address: [address] [place] [address] Performed By: #### U ACR #### [facility] CLIA [id number] [address] [place] [address] [place] RBC (Bld) [#/Vol] 4.32 10*6/uL Normal 3.90-5.20 [facility] Comment on above: Order Comment: Speci men Type: URINE SPECIMEN Ordering Facility: [facility] Address: [address] [place] [address] Performed By: #### U ACR #### [facility] CLIA [id number] [address] [place] [address] [place] WBC (Bld) [#/Vol] 6.82 10*3/uL Normal 3.70-11.00 [facility] Comment on above: Order Comment: Speci men Type: URINE SPECIMEN Ordering Facility: [facility] Address: [address] [place] [address] Performed By: #### U ACR #### [facility] CLIA [id number] [address] [place] [address] [place] Comprehensive metabolic 2000 panelon 05-04-2024 Albumin [Mass/Vol] 4.2 g/dL Normal 3.9-4.9 [facility] Comment on above: Order Comment: Speci men Type: BLOOD SPECIMENOrdering Facility: [facility] Address: [address] [place] [address] Performed By: #### 2 4323-8, 3016-3, LIPNF ####[facility] [id number] [place] [address] [place] ALP [Catalytic activity/Vol] 51 U/L Normal 34-123 [facility] Comment on above: Order Comment: Speci men Type: BLOOD SPECIMENOrdering Facility: [facility] Address: [address] [place] [address] Performed By: #### 2 4323-8, 3016-3, LIPNF ####[facility] [id number] [place] [address] [place] ALT [Catalytic activity/Vol] 14 U/L Normal 7-38 [facility] Comment on above: Order Comment: Speci men Type: BLOOD SPECIMENOrdering Facility: [facility] Address: [address] [place] [address] Performed By: #### 2 4323-8, 3016-3, LIPNF ####[facility] [id number] [place] [address] [place] Anion gap [Moles/Vol] 14 mmol/L Normal 8-15 [facility] Comment on above: Order Comment: Speci men Type: BLOOD SPECIMENOrdering Facility: [facility] Address: [address] [place] [address] Performed By: #### 2 4323-8, 3016-3, LIPNF ####[facility] [id number] [place] [address] [place] AST [Catalytic activity/Vol] 19 U/L Normal 13-35 [facility] Comment on above: Order Comment: Speci men Type: BLOOD SPECIMENOrdering Facility: [facility] Address: [address] [place] [address] Performed By: #### 2 4323-8, 3016-3, LIPNF ####[facility] [id number] [place] [address] [place] Bilirubin [Mass/Vol] 0.3 mg/dL Normal 0.2-1.3 [facility] Comment on above: Order Comment: Speci men Type: BLOOD SPECIMENOrdering Facility: [facility] Address: [address] [place] [address] Performed By: #### 2 4323-8, 3016-3, LIPNF ####[facility] [id number] [place] [address] [place] Calcium [Mass/Vol] 9.3 mg/dL Normal 8.5-10.2 [facility] Comment on above: Order Comment: Speci men Type: BLOOD SPECIMENOrdering Facility: [facility] Address: [address] [place] [address] Performed By: #### 2 4323-8, 3016-3, LIPNF ####[facility] [id number] [address] [place] [address] [place] Chloride [Moles/Vol] 94 mmol/L Low 98-107 [facility] Comment on above: Order Comment: Speci men Type: BLOOD SPECIMENOrdering Facility: [facility] Address: [address] [place] [address] Performed By: #### 2 4323-8, 3016-3, LIPNF ####[facility] [id number] [place] [address] [place] CO2 [Moles/Vol] 26 mmol/L Normal 22-30 [facility] Comment on above: Order Comment: Speci men Type: BLOOD SPECIMENOrdering Facility: [facility] Address: [address] [place] [address] Performed By: #### 2 4323-8, 3016-3, LIPNF ####[facility] [id number] [place] [address] [place] Creatinine [Mass/Vol] 1.17 mg/dL High 0.58-0.96 [facility] Comment on above: Order Comment: Speci men Type: BLOOD SPECIMENOrdering Facility: [facility] Address: [address] [place] [address] Performed By: #### 2 4323-8, 3016-3, LIPNF ####[facility] [id number] [place] [address] [place] Creatinine and Glomerular filtration rate.predicted panel (S/P/Bld) 47 mL/min/1.73m??? Low >=60 [facility] Comment on above: Order Comment: Speci men Type: BLOOD SPECIMENOrdering Facility: [facility] Address: [address] [place] [address] Result Comment: Sushma mated Glomerular Filtration Rate (eGFR) is calculated using the 2020 CKD-EPI creatinine equation. This equation utilizes serum creatinine, sex, and age as parameters. The creatinine assay has traceable calibration to isotope dilution-mass spectrometry. Refer to KDIGO guidelines for clinical interpretation. In patients with unstable renal function, e.g. those with acute kidney injury, the eGFR may not accurately reflect actual GFR. Performed By: #### 2 4323-8, 6-3, LIPNF ####[facility] [id number] [place] [address] [place] Glucose [Mass/Vol] 253 mg/dL High 74-99 [facility] Comment on above: Order Comment: Speci men Type: BLOOD SPECIMENOrdering Facility: [facility] Address: [address] [place] [address] Result Comment: The [place] Diabetes Association (ADA) provides guidance for cutoff values for fasting glucose and random glucose. The ADA defines fasting as no caloric intake for at least 8 hours. Fasting plasma glucose results between 100 to 125 mg/dL indicate increased risk for diabetes (prediabetes). Fasting plasma glucose results greater than or equal to 126 mg/dL meet the criteria for diagnosis of diabetes. In the absence of unequivocal hyperglycemia, results should be confirmed by repeat testing. In a patient with classic symptoms of hyperglycemia or hyperglycemic crisis, random plasma glucose results greater than or equal to 200 mg/dL meet the criteria for diagnosis of diabetes. Reference: Standards of Medical Care in Diabetes 2016, [place] Diabetes Association. Diabetes Care. 2016.39(Suppl 1). Performed By: #### 2 4323-8, 3015-3, LIPNF ####[facility] [id number] [place] [address] [place] Potassium [Moles/Vol] 4.1 mmol/L Normal 3.7-5.1 [facility] Comment on above: Order Comment: Speci men Type: BLOOD SPECIMENOrdering Facility: [facility] Address: [address] [place] [address] Performed By: #### 2 4323-8, 3015-3, LIPNF ####[facility] [id number] [place] [address] [place] Protein [Mass/Vol] 6.9 g/dL Normal 6.3-8.0 [facility] Comment on above: Order Comment: Speci men Type: BLOOD SPECIMENOrdering Facility: [facility] Address: [address] [place] [address] Performed By: #### 2 4323-8, 6-3, LIPNF ####[facility] [id number] [place] [address] [place] Sodium [Moles/Vol] 134 mmol/L Low 136-144 [facility] Comment on above: Order Comment: Speci men Type: BLOOD SPECIMENOrdering Facility: [facility] Address: [address] [place] [address] Performed By: #### 2 4323-8, 3015-3, LIPNF ####[facility] [id number] [place] [address] [place] Urea nitrogen [Mass/Vol] 18 mg/dL Normal 7-21 [facility] Comment on above: Order Comment: Speci men Type: BLOOD SPECIMENOrdering Facility: [facility] Address: [address] [place] [address] Performed By: #### 2 4323-8, 3015-3, LIPNF ####[facility] [id number] [place] [address] [place] HbA1c (Bld)on 05-04-2024 Average glucose Estimated from glycated hemoglobin (Bld) [Mass/Vol] 252 mg/dL Normal [facility] Comment on above: Order Comment: Speci men Type: BLOOD SPECIMENOrdering Facility: [facility] Address: [address] [place] [address] Result Comment: eAG: (Estimated average glucose) is a calculated value from HgbA1c and is termite control service representative of the average blood glucose level in the last 2-3 month period. Performed By: #### 5 5454-3 ####[facility] [id number] [place] [address] [place] HbA1c (Bld) [Mass fraction] 10.4 % High 4.3-5.6 [facility] Comment on above: Order Comment: Speci men Type: BLOOD SPECIMENOrdering Facility: [facility] Address: [address] [place] [address] Result Comment: Amer [place] Diabetes Association guidelines indicate that patients with HgbA1c in the range 5.7-6.4% are at increased risk for development of diabetes, and intervention by lifestyle modification may be beneficial. HgbA1c greater or equal to 6.5% is considered diagnostic of diabetes. Performed By: #### 5 5454-3 ####[facility] [id number] [place] [address] [place] LIPID PANEL, NONFASTINGon Cholesterol [Mass/Vol] 189 mg/dL Normal <200 [facility] Comment on above: Order Comment: Remii men Type: BLOOD SPECIMENOrdering Facility: [facility] Address: [address] [place] [address] Result Comment: <200 mg/dL, Desirable 200-239 mg/dL, Borderline high >239 mg/dL, High Performed By: #### 2 4323-8, 3016-3, LIPNF ####[facility] [id number] [place] [address] [place] HDL CHOLESTEROL, NF 45 mg/dL Normal >39 [facility] Comment on above: Order Comment: Speci men Type: BLOOD SPECIMENOrdering Facility: [facility] Address: [address] [place] [address] Result Comment: 40-5 9 mg/dL, Acceptable >59 mg/dL, High: Negative risk factor for coronary heart disease <40 mg/dL, Low: Positive risk factor for coronary heart disease Performed By: #### 2 4323-8, 3016-3, LIPNF ####[facility] [id number] [address] [place] LDL CHOLESTEROL, NF 93 mg/dL Normal <100 [facility] Comment on above: Order Comment: Speci men Type: BLOOD SPECIMENOrdering Facility: [facility] Address: [address] [place] [address] Result Comment: <100 mg/dL, Optimal 100-129 mg/dL, Near optimal/above optimal 130-159 mg/dL, Borderline high 160-189 mg/dL, High >189 mg/dL, Very high Secondary prevention optimal LDL Cholesterol levels are recommended to be < 70 mg/dL Performed By: #### 2 4323-8, 3016-3, LIPNF ####[facility] [id number] [address] [facility] LDL/HDL RATIO, NF 2.07 mg/dL Normal <2.54 [facility] Comment on above: Order Comment: Zenobia early Type: BLOOD SPECIMENOrdering Facility: [facility] Address: [address] [place] [address] Result Comment: Refe rence: 1. National Cholesterol Education Program ATP III Guideline At-A-Glance Quick Desk Reference: National Heart, Lung, and Blood [place]. National Institutes of Health. 2001: NIH Publication No. 01-3305. 2. An International Atherosclerosis Society position paper: global recommendations for the management of dyslipidemia: executive summary, Atherosclerosis. 2014: 232(2):410-413. Performed By: #### 2 4323-8, 3016-3, LIPNF ####[facility] [id number] [address] [place] NON HDL CHOL, NF 144 mg/dL High <130 [facility] Comment on above: Order Comment: Zenobia early Type: BLOOD SPECIMENOrdering Facility: [facility] Address: [address] [place] [address] Result Comment: <130 mg/dL, Optimal 130-159 mg/dL, Near optimal/above optimal 160-189 mg/dL, Borderline high 190-219 mg/dL, High >219 mg/dL, Very high Secondary prevention optimal non HDL Cholesterol levels are recommended to be <100 mg/dL Performed By: #### 2 4323-8, 3016-3, LIPNF ####[facility] [id number] [place] [address] [place] T CHOL/HDL RATIO NF 4.20 mg/dL Normal <5.10 [facility] Comment on above: Order Comment: Speci men Type: BLOOD SPECIMENOrdering Facility: [facility] Address: [address] [place] [address] Performed By: #### 2 4323-8, 3016-3, LIPNF ####[facility] [id number] [place] [address] [place] TRIGLYCERIDES, NF 255 mg/dL High <150 [facility] Comment on above: Order Comment: Speci men Type: BLOOD SPECIMENOrdering Facility: [facility] Address: [address] [place] [address] Result Comment: <150 mg/dL, Normal 150-199 mg/dL, Borderline high 200-499 mg/dL, High >499 mg/dL, Very high Performed By: #### 2 4323-8, 3016-3, LIPNF ####[facility] [id number] [place] [address] [place] VLDL CHOLESTEROL, NF 51 mg/dL High <30 [facility] Comment on above: Order Comment: Speci men Type: BLOOD SPECIMENOrdering Facility: [facility] Address: [address] [place] [address] Performed By: #### 2 4323-8, 3016-3, LIPNF ####[facility] [id number] [place] [address] [place] TSH SerPl-aCncon 05-04-2024 TSH Qn 2.700 m[IU]/L Normal 0.270-4.200 [facility] Comment on above: Order Comment: Speci men Type: BLOOD SPECIMENOrdering Facility: [facility] Address: [address] [place] [address] Performed By: #### 2 4323-8, 3016-3, LIPNF ####[facility] [id number] [place] [address] [place] Urinalysis complete panel (U )on 05-04-2024 Bacteria LM.HPF (Urine sed) [#/Area] Negative Normal Negative [facility] Comment on above: Order Comment: Speci men Type: URINE SPECIMEN Ordering Facility: [facility] Address: [address] [place] [address] Performed By: #### U ACR #### [facility] CLIA [id number] [address] [place] [address] [place] Bilirubin Ql (U) Negative Normal Negative [facility] Comment on above: Order Comment: Speci men Type: URINE SPECIMEN Ordering Facility: [facility] Address: [address] [place] [address] Performed By: #### U ACR #### [facility] CLIA [id number] [address] [place] [address] [place] Clarity (Unsp spec) Clear Normal Clear [facility] Comment on above: Order Comment: Speci men Type: URINE SPECIMEN Ordering Facility: [facility] Address: [address] [place] [address] Performed By: #### U ACR #### [facility] CLIA [id number] [address] [place] [address] [place] Color (U) Yellow Normal Yellow [facility] Comment on above: Order Comment: Speci men Type: URINE SPECIMEN Ordering Facility: [facility] Address: [address] [place] [address] Performed By: #### U ACR #### [facility] CLIA [id number] [address] [place] [address] [place] Epithelial cells LM.HPF (Urine sed) [#/Area] None Seen Normal [facility] Comment on above: Order Comment: Speci men Type: URINE SPECIMEN Ordering Facility: [facility] Address: [address] [place] [address] Performed By: #### U ACR #### [facility] CLIA [id number] [address] [place] [address] [place] Glucose Test strip (U) [Mass/Vol] 2+ Abnormal Negative [facility] Comment on above: Order Comment: Speci men Type: URINE SPECIMEN Ordering Facility: [facility] Address: [address] [place] [address] Performed By: #### U ACR #### [facility] CLIA [id number] [address] [place] [address] [place] Hemoglobin Ql (U) Negative Normal Negative [facility] Comment on above: Order Comment: Speci men Type: URINE SPECIMEN Ordering Facility: [facility] Address: [address] [place] [address] Performed By: #### U ACR #### [facility] CLIA [id number] [address] [place] [address] [place] Hyaline casts (Urine sed) [#/Area] 1-3 /LPF Abnormal 0 /LPF [facility] Comment on above: Order Comment: Speci men Type: URINE SPECIMEN Ordering Facility: [facility] Address: [address] [place] [address] Performed By: #### U ACR #### [facility] CLIA [id number] [address] [place] [address] [place] Ketones Ql (U) Negative Normal Negative [facility] Comment on above: Order Comment: Speci men Type: URINE SPECIMEN Ordering Facility: [facility] Address: [address] [place] [address] Performed By: #### U ACR #### [facility] CLIA [id number] [address] [place] [address] [place] Leukocyte esterase Test strip Ql (U) Negative Normal Negative [facility] Comment on above: Order Comment: Speci men Type: URINE SPECIMEN Ordering Facility: [facility] Address: [address] [place] [address] Performed By: #### U ACR #### [facility] CLIA [id number] [address] [place] [address] [place] Nitrite Ql (U) Negative Normal Negative [facility] Comment on above: Order Comment: Speci men Type: URINE SPECIMEN Ordering Facility: [facility] Address: [address] [place] [address] Performed By: #### U ACR #### [facility] CLIA [id number] [address] [place] [address] [place] pH (U) 6.0 [pH] Normal <8.5 [facility] Comment on above: Order Comment: Speci men Type: URINE SPECIMEN Ordering Facility: [facility] Address: [address] [place] [address] Performed By: #### U ACR #### [facility] CLIA [id number] [address] [place] [address] [place] Protein (U) [Mass/Vol] Negative Normal Negative [facility] Comment on above: Order Comment: Speci men Type: URINE SPECIMEN Ordering Facility: [facility] Address: [address] [place] [address] Performed By: #### U ACR #### [facility] CLIA [id number] [address] [place] [address] [place] RBC LM.HPF (Urine sed) [#/Area] 0-2 /HPF Normal 0-2 /HPF [facility] Comment on above: Order Comment: Speci men Type: URINE SPECIMEN Ordering Facility: [facility] Address: [address] [place] [address] Performed By: #### U ACR #### [facility] CLIA [id number] [address] [place] [address] [place] Specific gravity (U) [Rel density] 1.011 Normal 1.005-1.030 [facility] Comment on above: Order Comment: Speci men Type: URINE SPECIMEN Ordering Facility: [facility] Address: [address] [place] [address] Performed By: #### U ACR #### [facility] CLIA [id number] [address] [place] [address] [place] Urobilinogen Ql (U) 0.2 EU/dL Normal 0.2-1.0 EU/dL [facility] Comment on above: Order Comment: Speci men Type: URINE SPECIMEN Ordering Facility: [facility] Address: [address] [place] [address] Performed By: #### U ACR #### [facility] CLIA [id number] [address] [place] [address] [place] WBC LM.HPF (Urine sed) [#/Area] 0-5 /HPF Normal 0-5 /HPF [facility] Comment on above: Order Comment: Speci men Type: URINE SPECIMEN Ordering Facility: [facility] Address: [address] [place] [address] Performed By: #### U ACR #### [facility] CLIA [id number] [address] [place] [address] [place] XR Knee - bilateral 4 Viewso n 11-28-2021 IMPRESSION: Advanced bilateral medial joint compartment osteoarthrosis, right greater than left Collaborative Physician: AKBAR Transcribe Date/Time: Nov 28 2021 7:03P Dictated by : DOMINICK CUELLO MD This examination was interpreted and the report reviewed and electronically signed by: DOMINICK CUELLO MD on Nov 28 2021 7:05PM EST ZZZ_DO_NOT_U SE_DIVISION OF RADIOLOGY * * *Final Report* * * DATE OF EXAM: Nov 28 2021 4:08PM WOX [id number] - XR KNEE 4V AP/PA/LAT/MERC MOR / PROCEDURE REASON: multiple diagnoses * * * * Physician Interpretation * * * * PROCEDURE: Bilateral knees INDICATION: Chronic pain of right knee .injured rt knee a year ago getting out of tub, pain medial had PT for it still has some swelling, Left knee is ok TECHNIQUE: XR KNEE 4V AP/PA/LAT/MERCH MOR COMPARISON: None FINDINGS: Significant medial joint compartment narrowing bilaterally, much greater on the right than the left. There is bony remodeling and resultant genu varus on the right. Mild tricompartment spur formation. No pneumothorax or or joint effusion. ZZZ_DO_NOT_U SE_DIVISION OF RADIOLOGY Provider, [facility] [place] - 11/28/2021 * * *Final Report* * * DATE OF EXAM: Nov 28 2021 4:08PM WOX [id number] - XR KNEE 4V AP/PA/LAT/MERCH MOR / PROCEDURE REASON: multiple diagnoses * * * * Physician Interpretation * * * * PROCEDURE: Bilateral knees INDICATION: Chronic pain of right knee .injured rt knee a year ago getting out of tub, pain medial had PT for it still has some swelling, Left knee is ok TECHNIQUE: XR KNEE 4V AP/PA/LAT/MERCH MOR COMPARISON: None FINDINGS: Significant medial joint compartment narrowing bilaterally, much greater on the right than the left. There is bony remodeling and resultant genu varus on the right. Mild tricompartment spur formation. No pneumothorax or or joint effusion. IMPRESSION IMPRESSION: Advanced bilateral medial joint compartment osteoarthrosis, right greater than left [facility] Transcribe Date/Time: Nov 28 2021 7:03P Dictated by : DOMINICK CUELLO MD This examination was interpreted and the report reviewed and electronically signed by: DOMINICK CUELLO MD on Nov 28 2021 7:05PM [facility] Radiology Study observation (narrative) Leigh mazariegos [facility] XR Knee - bilateral 4 ViewsO rdered By: [facility] Provider on 11-28-2021 [facility] Vital Signs Date Time Vital Sign Value Performing Clinician Facility 01-19-2025 13:58-0400 Diastolic blood pressure 82 mm[Hg] Micky Pendleton MD Work Phone: [facility] 01-19-2025 13:58-0400 Systolic blood pressure 132 mm[Hg] Micky Pendleton MD Work Phone: [facility] 01-19-2025 13:03-0400 Body mass index (BMI) [Ratio] 34.35 kg/m2 Micky Pendleton MD Work Phone: [facility] 01-19-2025 13:03-0400 Body weight 75.84 kg Micky Pendleton MD Work Phone: [facility] 01-19-2025 13:03-0400 Heart rate 80 /min Micky Pendleton MD Work Phone: [facility] 01-19-2025 13:03-0400 Respiratory rate 16 /min Micky Pendleton MD Work Phone: [facility] 01-15-2025 16:01-0400 Body mass index (BMI) [Ratio] 34.31 kg/m2 Dung Aaron MD Work Phone: [facility] 01-15-2025 16:01-0400 Body temperature 98.6 [degF] Dung Aaron MD Work Phone: [facility] 01-15-2025 16:01-0400 Body weight 75.75 kg Dung Aaron MD Work Phone: [facility] 01-15-2025 16:01-0400 Heart rate 84 /min Dung Aaron MD Work Phone: [facility] 01-15-2025 16:01-0400 Respiratory rate 16 /min Dung Aaron MD Work Phone: [facility] 01-15-2025 16:01-0400 SaO2% (BldA) [Mass fraction] 94 % Dung Aaron MD Work Phone: [facility] 12-27-2024 17:55-0400 Body temperature 99 [degF] Dr. Hiren Garber DO Work Phone: [facility] 12-27-2024 17:55-0400 Diastolic blood pressure 115 mm[Hg] Dr. Hiren Garber DO Work Phone: [facility] 12-27-2024 17:55-0400 Heart rate 107 /min Dr. Hiren Garber DO Work Phone: [facility] 12-27-2024 17:55-0400 Respiratory rate 18 /min Dr. Hiren Garber DO Work Phone: [facility] 12-27-2024 17:55-0400 SaO2% (BldA) [Mass fraction] 95 % Dr. Hiren Garber DO Work Phone: [facility] 12-27-2024 17:55-0400 Systolic blood pressure 154 mm[Hg] Dr. Hiren Garber DO Work Phone: [facility] 12-27-2024 13:28-0400 Body height 152.[address] Hiren Garber DO Work Phone: [facility] 12-27-2024 13:28-0400 Body mass index (BMI) [Ratio] 31.5 kg/m2 Dr. Hiren Garber DO Work Phone: [facility] 12-27-2024 13:28-0400 Body weight 73.[address] Hiren Garber DO Work Phone: [facility] 12-12-2024 12:42-0400 Body mass index (BMI) [Ratio] 34.31 kg/m2 Deisi Calle PA-C Work Phone: [facility] 12-12-2024 12:42-0400 Body temperature 98.6 [degF] Deisi Calle PA-C Work Phone: [facility] 12-12-2024 12:42-0400 Body weight 75.75 kg Deisi Calle PA-C Work Phone: [facility] 12-12-2024 12:42-0400 Diastolic blood pressure 74 mm[Hg] Deisi Calle PA-C Work Phone: [facility] 12-12-2024 12:42-0400 Heart rate 76 /min Deisi Calle PA-C Work Phone: [facility] 12-12-2024 12:42-0400 Respiratory rate 18 /min Deisi Calle PA-C Work Phone: [facility] 12-12-2024 12:42-0400 SaO2% (BldA) [Mass fraction] 96 % Deisi Calle PA-C Work Phone: [facility] 12-12-2024 12:42-0400 Systolic blood pressure 122 mm[Hg] Deisi Calle PA-C Work Phone: [facility] 10-16-2024 16:24-0400 Body mass index (BMI) [Ratio] 34.06 kg/m2 Dung Aaron MD Work Phone: [facility] 10-16-2024 16:24-0400 Body temperature 97.7 [degF] Dung Aaron MD Work Phone: [facility] 10-16-2024 16:24-0400 Body weight 75.21 kg Dung Aaron MD Work Phone: [facility] 10-16-2024 16:24-0400 Heart rate 67 /min Dung Aaron MD Work Phone: [facility] 10-16-2024 16:24-0400 SaO2% (BldA) [Mass fraction] 94 % Dung Aaron MD Work Phone: [facility] 05-05-2024 14:47-0500 Body height 148.6 cm Micky Pendleton MD Work Phone: [facility] 05-05-2024 14:47-0500 Body mass index (BMI) [Ratio] 35.34 kg/m2 Micky Pendleton MD Work Phone: [facility] 05-05-2024 14:47-0500 Body weight 78.02 kg Micky Pendleton MD Work Phone: [facility] 05-05-2024 14:47-0500 Diastolic blood pressure 84 mm[Hg] Micky Pendleton MD Work Phone: [facility] 05-05-2024 14:47-0500 Heart rate 76 /min Micky Pendleton MD Work Phone: [facility] 05-05-2024 14:47-0500 Respiratory rate 16 /min Micky Pendleton MD Work Phone: [facility] 05-05-2024 14:47-0500 Systolic blood pressure 136 mm[Hg] Micky Pendleton MD Work Phone: [facility] 03-13-2024 16:29-0400 Body height 147.3 cm Dung Aaron MD Work Phone: [facility] 03-13-2024 16:29-0400 Body mass index (BMI) [Ratio] 36.2 kg/m2 Dung Aaron MD Work Phone: [facility] 03-13-2024 16:29-0400 Body weight 78.56 kg Dung Aaron MD Work Phone: [facility] 03-13-2024 16:29-0400 Heart rate 80 /min Dung Aaron MD Work Phone: [facility] 03-13-2024 16:29-0400 Respiratory rate 20 /min Dung Aaron MD Work Phone: [facility] 03-13-2024 16:29-0400 SaO2% (BldA) [Mass fraction] 96 % Dung Aaron MD Work Phone: [facility] 12-10-2023 16:04-0400 Body height 147.3 cm Dung Aaron MD Work Phone: [facility] 12-10-2023 16:04-0400 Body mass index (BMI) [Ratio] 36.03 kg/m2 Dung Aaron MD Work Phone: [facility] 12-10-2023 16:04-0400 Body weight 78.2 kg Dung Aaron MD Work Phone: [facility] 12-10-2023 16:04-0400 Diastolic blood pressure 86 mm[Hg] Dung Aaron MD Work Phone: [facility] 12-10-2023 16:04-0400 Heart rate 81 /min Dung Aaron MD Work Phone: [facility] 12-10-2023 16:04-0400 Systolic blood pressure 130 mm[Hg] Dung Aaron MD Work Phone: [facility] 10-04-2023 15:32-0400 Diastolic blood pressure 81 mm[Hg] Saul Murphy POWER PRESS OPERATOR.CLERK CHECKER Work Phone: [facility] 10-04-2023 15:32-0400 Systolic blood pressure 146 mm[Hg] Saul Juan Pablo POWER PRESS OPERATOR.CLERK CHECKER Work Phone: [facility] 10-04-2023 15:23-0400 Body weight 78.47 kg Saul Murphy POWER PRESS OPERATOR.CLERK CHECKER Work Phone: [facility] 10-04-2023 15:23-0400 Heart rate 76 /min Saul Murphy POWER PRESS OPERATOR.CLERK CHECKER Work Phone: [facility] 10-04-2023 15:23-0400 Respiratory rate 16 /min Saul Juan Pablo POWER PRESS OPERATOR.CLERK CHECKER Work Phone: [facility] 09-06-2023 15:04-0400 Body height 147.3 cm Dung Aaron MD Work Phone: [facility] 09-06-2023 15:04-0400 Body temperature 97.59 [degF] Dung Aaron MD Work Phone: [facility] 09-06-2023 15:04-0400 Body weight 79.11 kg Dung Aaron MD Work Phone: [facility] 09-06-2023 15:04-0400 Diastolic blood pressure 82 mm[Hg] Dung Aaron MD Work Phone: [facility] 09-06-2023 15:04-0400 Heart rate 87 /min Dung Aaron MD Work Phone: [facility] 09-06-2023 15:04-0400 SaO2% (BldA) [Mass fraction] 98 % Dung Aaron MD Work Phone: [facility] 09-06-2023 15:04-0400 Systolic blood pressure 146 mm[Hg] Dung Aaron MD Work Phone: [facility] 09-03-2023 14:30-0400 Diastolic blood pressure 108 mm[Hg] Micky Pendleton MD Work Phone: [facility] 09-03-2023 14:30-0400 Systolic blood pressure 162 mm[Hg] Micky Pendleton MD Work Phone: [facility] 09-03-2023 13:42-0400 Body height 147.3 cm Micky Pendleton MD Work Phone: [facility] 09-03-2023 13:42-0400 Body weight 79.83 kg Micky Pendleton MD Work Phone: [facility] 09-03-2023 13:42-0400 Heart rate 82 /min Micky Pendleton MD Work Phone: [facility] 09-03-2023 13:42-0400 Respiratory rate 18 /min Micky Pendleton MD Work Phone: [facility] 08-05-2023 13:16-0500 Body height 147.5 cm Deisi CHAVEZ-C Work Phone: [facility] 08-05-2023 13:16-0500 Body temperature 99.19 [degF] Deisi Calle PA-C Work Phone: [facility] 08-05-2023 13:16-0500 Body weight 78.93 kg Deisi CHAVEZ-C Work Phone: [facility] 08-05-2023 13:16-0500 Diastolic blood pressure 80 mm[Hg] Deisi Calle PA-C Work Phone: [facility] 08-05-2023 13:16-0500 Heart rate 82 /min Deisi Calle PA-C Work Phone: [facility] 08-05-2023 13:16-0500 Respiratory rate 18 /min Deisi Calle PA-C Work Phone: [facility] 08-05-2023 13:16-0500 Systolic blood pressure 120 mm[Hg] Deisi Calle PA-C Work Phone: [facility] 08-25-2022 14:36-0500 Diastolic blood pressure 75 mm[Hg] Deisi Calle PA-C Work Phone: [facility] 08-25-2022 14:36-0500 Heart rate 81 /min Deisi Calle PA-C Work Phone: [facility] 08-25-2022 14:36-0500 Systolic blood pressure 126 mm[Hg] Deisi Calle PA-C Work Phone: [facility] 08-25-2022 13:37-0500 Body weight 80.29 kg Deisi Calle PA-C Work Phone: [facility] 08-25-2022 13:37-0500 Respiratory rate 18 /min Deisi Calle PA-C Work Phone: [facility] 08-25-2022 13:37-0500 SaO2% (BldA) [Mass fraction] 98 % Deisi Calle PA-C Work Phone: [facility] 01-14-2022 15:04-0400 Diastolic blood pressure 76 mm[Hg] Mi Nurse Work Phone: [facility] 01-14-2022 15:04-0400 Heart rate 73 /min Mi Nurse Work Phone: [facility] 01-14-2022 15:04-0400 Systolic blood pressure 123 mm[Hg] Mi Nurse Work Phone: [facility] 12-23-2021 15:06-0400 Diastolic blood pressure 79 mm[Hg] Mi Nurse Work Phone: [facility] 12-23-2021 15:06-0400 Heart rate 81 /min Mi Nurse Work Phone: [facility] 12-23-2021 15:06-0400 Systolic blood pressure 157 mm[Hg] Mi Nurse Work Phone: [facility] 11-14-2021 17:24-0400 Diastolic blood pressure 88 mm[Hg] Micky Pendleton MD Work Phone: [facility] 11-14-2021 17:24-0400 Heart rate 91 /min Micky Pendleton MD Work Phone: [facility] 11-14-2021 17:24-0400 Systolic blood pressure 148 mm[Hg] Micky Pendleton MD Work Phone: [facility] 11-14-2021 15:27-0400 Body weight 79.83 kg Micky Pendleton MD Work Phone: [facility] 11-14-2021 15:27-0400 Respiratory rate 16 /min Micky Pendleton MD Work Phone: [facility] Encounters Encounter Date Encounter Type Care Provider Facility Start: 05-02-2025 ambulatory Filiberto Willy [facility] Start: 05-01-2025 ambulatory [facility] Facility: [facility] Start: 05-01-2025 Evaluation and manag ement of inpatient [facility] Facility:[facility] Start: 04-19-2025 End: 04-19-2025 ambulatory [facility] Facility:[facility] Start: 03-07-2025 End: 03-07-2025 ambulatory MILDRED ANDINO Facility:[facility] Start: 02-28-2025 End: 03-02-2025 Telephone encounter Micky Pendleton MD Work Phone: [facility] [place] Comment on above: Results Start: 02-26-2025 End: 02-26-2025 ambulatory MICKY PENDLETON Facility:[facility] Start: 02-06-2025 End: 02-07-2025 Refill Micky Pendleton MD Work Phone: [facility] [place] Comment on above: Refill Request Start: 02-05-2025 End: 02-05-2025 ambulatory [facility] Facility:[facility] Start: 02-03-2025 End: 02-05-2025 Follow-up encounter Micky Pendleton MD Work Phone: [facility] [place] Comment on above: Results Start: 02-02-2025 End: 02-02-2025 ambulatory MICKY PENDLETON Facility:[facility] Start: 01-23-2025 End: 02-03-2025 Telephone encounter Srinivasa Gray MD Work Phone: Neurology Comment on above: Appointment Start: 01-22-2025 End: 01-22-2025 Refill Micky Pendleton MD Work Phone: [facility] [place] Comment on above: Refill Request Start: 01-19-2025 End: 01-19-2025 Patient encounter procedure Micky Pendleton MD Work Phone: [facility] [place] Comment on above: Dysarthria (Primary Dx); Confusion; Lacunar infarction (HCC); Meningioma (HCC); Essential hypertension, benign; Stress reaction; Type 2 diabetes mellitus with microalbuminuria, without long-term current use of insulin (HCC); Diabetes mellitus with stage 3 chronic kidney disease (HCC) Start: 01-19-2025 End: 01-19-2025 ambulatory MICKY PENDLETON Facility:[facility] Start: 01-15-2025 End: 01-15-2025 Patient encounter procedure Dung Aaron MD Work Phone: Endocrinology Comment on above: Type [address] with microalbuminuria, without long- term current use of insulin (HCC) (Primary Dx) Start: 01-15-2025 End: 01-15-2025 ambulatory DUNG AARON Facility:[facility] Start: 12-27-2024 End: 12-27-2024 Patient encounter procedure Lico Barbosa MD Work Phone: [facility] [place] Comment on above: Confusion (Primary D x); Difficulty with speech Start: 12-27-2024 End: 12-27-2024 Emergency department patient visit Dr. Hiren Garber DO Work Phone: -Emergency Department Work Phone: Start: 12-27-2024 End: 12-27-2024 ambulatory LICO BARBOSA Facility:[facility] Start: 12-19-2024 End: 12-21-2024 Refill Dung Aaron MD Work Phone: Endocrinology Comment on above: Refill Request Start: 12-12-2024 End: 12-12-2024 Office outpatient visit 15 minutes Deisi Calle PA-C Work Phone: [facility] [place] Comment on above: Essential hypertensi on, benign (Primary Dx) Start: 12-12-2024 End: 12-12-2024 ambulatory DEISI CALLE Facility:[facility] Start: 11-08-2024 End: 11-08-2024 ambulatory MICKY PENDLETON Facility:[facility] Start: 11-03-2024 End: 11-03-2024 Orders Only Saul Murphy APRN.CLERK CHECKER Work Phone: [facility] [place] Comment on above: Type [address] with stage 3a chronic kidney disease, without long-term current use of insulin (HCC) (Primary Dx); Acquired hypothyroidism; Hyperlipidemia, mixed Start: 10-27-2024 End: 10-27-2024 Refill Micky Pendleton MD Work Phone: [place] Comment on above: Refill Request Start: 10-19-2024 End: 10-19-2024 ambulatory DUNG AARON Facility:[facility] Start: 10-16-2024 End: 10-16-2024 Patient encounter procedure Dung Aaron MD Work Phone: Endocrinology Comment on above: Diabetes mellitus wi th stage 3 chronic kidney disease (HCC) (Primary Dx); Type 2 diabetes mellitus with microalbuminuria, without long-term current use of insulin (HCC) Start: 10-16-2024 End: 10-16-2024 ambulatory DUNG ARAON Facility:[facility] Start: 10-09-2024 End: 10-09-2024 Refill Micky Pendleton MD Work Phone: [facility] [place] Comment on above: Refill Request Start: 10-02-2024 End: 10-02-2024 Refill Micky Pendleton MD Work Phone: [facility] [place] Comment on above: Refill Request Start: 09-20-2024 End: 2024 Telephone encounter Micky Pendleton MD Work Phone: [facility] [place] Comment on above: Refill Request Start: 09-18-2024 End: 09-20-2024 Refill Dung Aaron MD Work Phone: Endocrinology Comment on above: Refill Request Start: 08-01-2024 End: 08-01-2024 Refill Micky Pendleton MD Work Phone: [facility] [place] Comment on above: Refill Request Start: 07-24-2024 End: 07-25-2024 Refill Micky Pendleton MD Work Phone: Family [facility] [place] Comment on above: Refill Request Start: 07-13-2024 End: 07-13-2024 Refill Micky Pendleton MD Work Phone: [facility] [place] Comment on above: Refill Request Start: 06-12-2024 End: 06-15-2024 Refill Dung Aaron MD Work Phone: Endocrinology Comment on above: Refill Request Start: 05-09-2024 End: 05-10-2024 Refill Micky Pendleton MD Work Phone: [facility] [place] Comment on above: Refill Request (Out of medication) Start: 05-05-2024 End: 05-05-2024 ambulatory MICKY PENDLETON Facility:[facility] Start: 05-05-2024 End: 05-05-2024 Ophthalmic examination and evaluation Micky Pendleton MD Work Phone: [facility] Start: 05-05-2024 End: 05-05-2024 Patient encounter procedure Micky Pendleton MD Work Phone: [facility] [place] Comment on above: Encounter for Medica re annual wellness exam (Primary Dx); Type 2 diabetes mellitus with stage 3a chronic kidney disease, without long-term current use of insulin (HCC); Type 2 diabetes mellitus with microalbuminuria, without long-term current use of insulin (HCC); Diabetic eye exam (HCC); Essential hypertension, benign; Hyperlipidemia, mixed; Acquired hypothyroidism; Stage 3a chronic kidney disease (HCC); 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); Obesity, Class II, BMI 35-39.9; Vitamin D deficiency; Screening for depression; Encounter for screening examination for other mental health and behavioral disorders; Encounter for immunization Start: 05-05-2024 Patient encounter procedure MICKY PENDLETON [facility] Start: 05-04-2024 End: 05-04-2024 ambulatory MICKY PENDLETON Facility:[facility] Start: 05-02-2024 End: 05-03-2024 Telephone encounter Micky Pendleton MD Work Phone: [facility] [place] Comment on above: Lab Orders Start: 04-19-2024 End: 04-19-2024 Refill Micky Pendleton MD Work Phone: [facility] [place] Comment on above: Refill Request Start: 04-10-2024 End: 04-10-2024 Refill [facility] MD [facility] Comment on above: Refill Request Start: 03-22-2024 End: 03-28-2024 Refill Dung Aaron MD Work Phone: Endocrinology Comment on above: Refill Request Start: 03-20-2024 End: 03-22-2024 Refill Dung Aaron MD Work Phone: Endocrinology Comment on above: Medication Problem ( update) Start: 03-13-2024 End: 03-13-2024 Patient encounter procedure Dung Aaron MD Work Phone: Endocrinology Comment on above: Type [address] with microalbuminuria, without long- term current use of insulin (HCC) Start: 02-03-2024 Refill Micky willett MD Work Phone: Family [facility] [place] Comment on above: Refill Request Start: 01-04-2024 Chart abstracting Micky rai MD Work Phone: Family [facility] [place] Comment on above: Outside Ophthalmolog y Start: 12-27-2023 Telephone encounter Dung Aaron MD Work Phone: Endocrinology Comment on above: Results (A1C) Start: 12-10-2023 End: 12-10-2023 Patient encounter procedure Dung Aaron MD Work Phone: Endocrinology Comment on above: Type [address] with microalbuminuria, without long- term current use of insulin (HCC) (Primary Dx) Start: 12-03-2023 Refill Dung Aaron MD Work Phone: Endocrinology Comment on above: Refill Request Start: 11-18-2023 Telephone encounter Micky Pendleton MD Work Phone: Family [facility] [place] Comment on above: diabetic supplies Start: 11-04-2023 Telephone encounter Micky Pendleton MD Work Phone: [facility] Comment on above: Medication Problem Start: 10-20-2023 Refill Micky willett MD Work Phone: Family [facility] [place] Comment on above: Refill Request Start: 10-08-2023 Chart abstracting Micky rai MD Work Phone: [facility] [place] Comment on above: Ext / Diabetic Eye e xam (Results recorded in pt's chart) Start: 10-04-2023 End: 10-04-2023 Patient encounter procedure Saul Murphy APRN.CNP Work Phone: Family [facility] [place] Comment on above: Essential hypertensi on, benign (Primary Dx) Start: 09-23-2023 Refill Micky willett MD Work Phone: Family [facility] [place] Comment on above: Refill Request Start: 09-09-2023 Telephone encounter Dung Aaron MD Work Phone: Endocrinology Comment on above: Orders (Medical supp lies ordered) Start: 09-06-2023 End: 09-06-2023 Patient encounter procedure Dung Aaron MD Work Phone: Endocrinology Comment on above: Type [address] with microalbuminuria, without long- term current use of insulin (HCC) (HCC) (Primary Dx) Start: 09-06-2023 Telephone encounter Micky Pendleton MD Work Phone: [facility] [place] Comment on above: Patient Update Start: 09-03-2023 End: 09-03-2023 Ophthalmic examination and evaluation Micky Pendleton MD Work Phone: [facility] Work Phone: Start: 09-03-2023 End: 09-03-2023 Patient encounter procedure Micky Pendleton MD Work Phone: [facility] [place] Comment on above: Type [address] with stage 3a chronic kidney disease, without long-term current use of insulin (HCC) (Primary Dx); 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); Stage 3a chronic kidney disease (HCC); Diabetic eye exam (HCC); Essential hypertension, benign; Hyperlipidemia, mixed; Acquired hypothyroidism; Vitamin D deficiency; Obesity, Class II, BMI 35-39.9; Arthritis of both knees; Advance directive discussed with patient Start: 09-01-2023 Telephone encounter Deisi joya PA-C Work Phone: [facility] [place] Comment on above: Results Start: 08-17-2023 Refill Micky willett MD Work Phone: Family [facility] [place] Comment on above: Refill Request Start: 08-09-2023 Refill Micky willett MD Work Phone: [facility] [place] Comment on above: Refill Request Start: 08-05-2023 End: 08-05-2023 Patient encounter procedure Deisi Calle PA-C Work Phone: [facility] [place] Comment on above: Type [address] with microalbuminuria, without long- term current use of insulin (HCC) (HCC) (Primary Dx); BENIGN HYPERTENSION; Hyperlipidemia, mixed; Acquired hypothyroidism; Encounter for immunization; 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); Vitamin D deficiency; Stage 3a chronic kidney disease (HCC) Start: 04-29-2023 Refill Micky willett MD Work Phone: [facility] Comment on above: Refill Request Start: 04-16-2023 Refill Micky willett MD Work Phone: [facility] [place] Comment on above: Refill Request Start: 02-12-2023 Refill Micky willett MD Work Phone: [address] [place] [address] Comment on above: Refill Request Start: 11-18-2022 Refill Micky willett MD Work Phone: [facility] [place] Comment on above: Refill Request Start: 10-14-2022 Refill Micky willett MD Work Phone: [facility] Comment on above: Refill Request Start: 08-25-2022 Telephone encounter Micky Pendleton MD Work Phone: [facility] Comment on above: Results Start: 08-25-2022 End: 08-25-2022 Patient encounter procedure Deisi Calle PA-C Work Phone: [facility] Comment on above: Type [address] with microalbuminuria, without long- term current use of insulin (HCC) (Primary Dx); 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); Acquired hypothyroidism; Hyperlipidemia, mixed; Essential hypertension, benign; Vitamin D deficiency; Arthritis of both knees Start: 07-14-2022 Refill Micky willett MD Work Phone: [facility] [place] Comment on above: Refill Request Start: 07-10-2022 Refill Micky willett MD Work Phone: [facility] [place] Comment on above: Refill Request Start: 06-10-2022 Refill Micky willett MD Work Phone: [facility] Comment on above: Refill Request Start: 05-18-2022 Refill Micky willett MD Work Phone: [facility] Comment on above: Refill Request Start: 04-29-2022 Refill Micky willett MD Work Phone: [address] [place] [address] Comment on above: Refill Request Start: 04-13-2022 Refill Micky willett MD Work Phone: [facility] Comment on above: Refill Request Start: 03-26-2022 Refill Micky willett MD Work Phone: [facility] Comment on above: Refill Request Start: 01-14-2022 End: 01-14-2022 Nursing evaluation of patient and report Mi Nurse Work Phone: [facility] [place] Comment on above: Essential hypertensi on, benign (Primary Dx) Start: 01-14-2022 Telephone encounter Abraham Hinojosa MD Work Phone: [facility] Comment on above: Blood Pressure Check Start: 12-25-2021 Telephone encounter Micky Pendleton MD Work Phone: [facility] Comment on above: Medication Problem Start: 12-23-2021 End: 12-23-2021 Nursing evaluation of patient and report Mi Nurse Work Phone: [facility] Comment on above: Essential hypertensi on, benign (Primary Dx) Start: 12-23-2021 Telephone encounter Deisi joya PA-C Work Phone: [facility] Comment on above: Blood Pressure Check Start: 12-02-2021 Telephone encounter Micky Pendleton MD Work Phone: [facility] Comment on above: Results Start: 11-28-2021 End: 11-28-2021 Subsequent hospital visit by physician [facility] [place] Work Phone: Radiology Comment on above: Chronic pain of righ t knee [M25.561, G89.29] Start: 11-26-2021 Telephone encounter Morgan Pope RPh Work Phone: [facility] Comment on above: Appointment ([place] [facility] program) Start: 11-14-2021 End: 11-14-2021 Ophthalmic examination and evaluation Micky Pendleton MD Work Phone: Family [facility] [place] Start: 11-14-2021 End: 11-14-2021 Patient encounter procedure Micky Pendleton MD Work Phone: [facility] Comment on above: Type [address] with microalbuminuria, without long- term current use of insulin (HCC) (Primary Dx); 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); Diabetic eye exam (HCC); Essential hypertension, benign; Hyperlipidemia, mixed; Acquired hypothyroidism; Vitamin D deficiency; Obesity, Class II, BMI 35-39.9; Bilateral nonexudative age-related macular degeneration, unspecified stage; Chronic pain of right knee; Advance directive discussed with patient; Living will in place Start: 11-14-2021 Telephone encounter Micky Pendleton MD Work Phone: [facility] Comment on above: Patient Question Start: 11-10-2021 Ophthalmic examinati on and evaluation MICKY PENDLETON [facility] Work Phone: Start: 11-10-2021 Telephone encounter Micky Pendleton MD Work Phone: [facility] Comment on above: Orders Start: 10-31-2021 Refill [facility] MD [facility] Phone[facility] Comment on above: Refill Request Start: 10-16-2021 Refill Micky willett MD Work Phone: [facility] Comment on above: Refill Request Start: 09-12-2021 Refill Micky willett MD Work Phone[facility] Comment on above: Refill Request Start: 09-03-2021 Ophthalmic examinati on and evaluation Micky Pendleton MD Work Phone: [facility] Procedures Date Procedure Procedure Detail Performing Clinician Start: 12-27-2024 Urnls dip stick/tabl et reagent auto microscopy Dr. Hiren Garber DO Work Phone: Start: 12-27-2024 CT of head without contrast Dr. Hiren Garber DO Work Phone: Start: 12-27-2024 Plain chest X-ray Dr. Tiki Garber DO Work Phone: Start: 12-27-[address] Hiren Garber DO Work Phone: Start: 10-16-2024 Hemoglobin A1c/Hemoglobin.total in Blood Dung Aaron MD Work Phone: Start: 05-05-2024 Adult depression scr eening assessment Micky Pendleton MD Work Phone: Start: 08-05-2023 INFLUENZA VACCINE, P RSV FREE, AGE 65+ YR, HIGH DOSE, QUADRIVALENT (FLUZONE HIGH-DOSE) Deisi Calle PA-C Work Phone: Start: 11-28-2021 Radiologic exam knee complete 4/more views Micky Pendleton MD Work Phone: Start: 11-14-2021 Adult depression scr eening assessment Micky Pendleton MD Work Phone: Start: 12-01-2018 Adult depression scr eening assessment Micky Pendleton MD Work Phone: Plan of Treatment Date Care Activity Detail Author Start: 11-03-2025 Hepatitis B surface antibody level LDL Cholesterol [facility] Start: 05-08-2025 Hemoglobin A1c measurement HbA1C [facility] Start: 05-05-2025 Annual PCP Team Chronic Disease Visit Annual PCP Team Chronic Disease Visit [facility] Start: 05-05-2025 Anxiety Screening Anxiety Screening [facility] Start: 05-05-2025 BP Controlled (<130/80) BP Controlled (<130/80) [facility] Start: 05-05-2025 Covid-19 Vaccine ( season) Covid-19 Vaccine () [facility] Comment on above: Postponed from 02/20/2024 (Declined at t his time) Start: 05-05-2025 Depression Screening Depression Screening [facility] Start: 05-05-2025 Diabetic foot examination Diabetic Foot Exam [facility] Start: 05-05-2025 Medicare Annual Wellness Visit Medicare Annual Wellness Visit [facility] Start: 05-04-2025 Complete blood count Hemoglobin/Hematocrit [facility] Start: 05-04-2025 Creatinine measurement Serum Creatinine [facility] Start: 05-04-2025 Hepatitis B screening Urine Albumin:Creatinine Ratio [facility] Start: 05-04-2025 Hepatitis B surface antibody level LDL Cholesterol [facility] Start: 05-01-2025 End: 05-01-2025 Patient encounter procedure 05/01/2025 1:20 PM EST Office Visit [facility] [place] [address] [place] [id number] Deisi Calle PA-C [address] [place] [address] Medicare Wellness/6 month follow up [facility] [place] Comment on above: Medicare Wellness/6 month follow up Start: 04-19-2025 End: 04-19-2025 Patient encounter procedure 04/19/2025 3:40 PM EDT Office Visit Endocrinology [address] [place] [address] Dung Aaron MD [address] [place] [address] >2 MTH F/U F/U TYPE 2 DIABETES (R/S from provider out on 03/20) Endocrinology Comment on above: >2 MTH F/U F/U TYPE 2 DIABETES (R/S from provider out on 03/20) Start: 03-20-2025 End: 03-20-2025 Patient encounter procedure 03/20/2025 4:00 PM EDT Office Visit Endocrinology [address] [place] [address] Dung Aaron MD [address] [place] [id number] 2 MTH F/U F/U TYPE 2 DIABETES Endocrinology Comment on above: 2 MTH F/U F/U TYPE 2 DIABETES Start: 03-08-2025 End: 03-08-2025 Patient encounter procedure 03/08/2025 3:00 PM EDT Office Visit Cerebrovascular [address] [place] [id number] Harish Mejia MD [address] [place], [place] [id number] Lacunar infarction (HCC) [I63.81]; Meningioma (HCC) [D32.9] [facility]erebrovascular Comment on above: Lacunar infarction (HCC) [I63.81]; Menin gioma (HCC) [D32.9] Start: 03-07-2025 End: 03-07-2025 Patient encounter procedure 03/07/2025 1:30 PM EDT Office Visit Neurology [address] [place], [place] [id number] Mildred Andino PA-C [address] [place], [place] [phone] Lacunar infarction (HCC) [I63.81]; Meningioma (HCC) Neurology Comment on above: Lacunar infarction (HCC) [I63.81]; Menin gioma (HCC) Start: 02-26-2025 End: 02-26-2025 Patient encounter procedure 02/26/2025 3:30 PM EDT Office Visit Cardiology [address] [place], [place] [phone] Dysarthria [R47.1]; Confusion [R41.0]; Lacunar infarction (HCC) [I63.81] Cardiology Comment on above: Dysarthria [R47.1]; Confusion [R41.0]; L acunar infarction (HCC) [I63.81] Start: 02-19-2025 Influenza vaccination Influenza Vaccine (#1) [facility] Start: 02-03-2025 Hemoglobin A1c measurement HbA1C [facility] Start: 02-02-2025 End: 02-02-2025 Patient encounter procedure 02/02/2025 3:30 PM EDT Office Visit Vasculary Surgery [address] [place] [address] Dysarthria [R47.1]; Confusion [R41.0]; Lacunar infarction (HCC) [I63.81] Vasculary Surgery Comment on above: Dysarthria [R47.1]; Confusion [R41.0]; L acunar infarction (HCC) [I63.81] Start: 02-02-2025 End: 02-02-2025 Patient encounter procedure 02/02/2025 1:50 PM EDT Office Visit Cardiology [address] [place] [address] Dysarthria [R47.1]; Confusion [R41.0]; Lacunar infarction (HCC) [I63.81] Cardiology Comment on above: Dysarthria [R47.1]; Confusion [R41.0]; L acunar infarction (HCC) [I63.81] Start: 01-15-2025 End: 01-15-2025 Patient encounter procedure 01/15/2025 4:20 PM EDT Office Visit Endocrinology [address] [place] [address] Dung Aaron MD [address] [place], [place] [address] 3 month return Endocrinology Comment on above: 3 month return Start: 01-15-2025 End: 04-16-2025 Hemoglobin A1c in Blood HEMOGLOBIN A1C Lab Routine Type 2 diabetes mellitus with microalbuminuria, without long-term current use of insulin (HCC) Expected: 01/15/2025, Expires: 04/16/2025 [facility] Work Phone: Comment on above: Expected: 01/15/2025, Expires: Start: 01-15-2025 Hemoglobin A1c measurement HbA1C [facility] Start: 12-27-2024 [facility] Start: 12-27-2024 [facility] Start: 12-27-2024 End: 12-27-2024 [facility] Start: 12-27-2024 Bacteria identified in Blood by Culture Blood Culture [facility] Start: 12-27-2024 Bacteria identified in Urine by Culture Urine Culture [facility] Start: 12-05-2024 Glaucoma screening Dilated Retinal Exam [facility] Start: 11-08-2024 End: 11-08-2024 Patient encounter procedure [facility] [place] Comment on above: 6 month follow up Start: 11-03-2024 End: 02-02-2025 Hemoglobin A1c in Blood [facility] Work Phone: Comment on above: Expected: 11/03/2024, Expires: Start: 11-03-2024 End: 02-02-2025 LIPID PANEL, NONFASTING [facility] Comment on above: Expected: 11/03/2024, Expires: Start: 11-03-2024 End: 02-02-2025 Thyrotropin [Units/volume] in Serum or Plasma [facility] Comment on above: Expected: 11/03/2024, Expires: Start: 10-16-2024 End: 10-16-2024 Patient encounter procedure 10/16/2024 4:20 PM EDT Office Visit Endocrinology [address] [place] [address] Dung Aaron MD [address] [place] [address] 3 MO f/u Endocrinology Comment on above: 3 MO f/u Start: 10-16-2024 End: 01-15-2025 Comprehensive metabolic 2000 panel - Serum or Plasma COMPREHENSIVE METABOLIC PANEL Lab Routine Type 2 diabetes mellitus with microalbuminuria, without long-term current use of insulin (HCC) Diabetes mellitus with stage 3 chronic kidney disease (HCC) Expected: 10/16/2024, Expires: 01/15/2025 [facility] Work Phone: Comment on above: Expected: 10/16/2024, Expires: Start: 10-06-2024 Glaucoma screening Dilated Retinal Exam [facility] Start: 10-03-2024 Annual PCP Team Chronic Disease Visit Annual PCP Team Chronic Disease Visit [facility] Start: 09-05-2024 Diabetic foot examination Diabetic Foot Exam [facility] Start: 09-02-2024 Annual PCP Team Chronic Disease Visit Annual PCP Team Chronic Disease Visit [facility] Start: 09-02-2024 Covid-19 Vaccine ( season) Covid-19 Vaccine ( season) [facility] Comment on above: Postponed from 02/19/2023 (Declined at t his time) Start: 09-02-2024 RSV Vaccine (1 - 1-dose 60+ series) RSV Vaccine (1 - 1-dose 60+ series) [facility] Comment on above: Postponed from 2003 (Declined at t his time) Start: 09-02-2024 RSV Vaccine (1 - 1-dose 75+ series) RSV Vaccine (1 - 1-dose 75+ series) [facility] Comment on above: Postponed from 09/20/2018 (Declined at t his time) Start: 09-02-2024 Shingrix Vaccine (1 of 2) Shingrix Vaccine (1 of 2) [facility] Comment on above: Postponed from 09/20/1993 (Insurance Cov erage) Start: 09-02-2024 Urine microalbumin profile DTaP,Tdap,Td Vaccine (1 - Tdap) [facility] Comment on above: Postponed from 09/20/1962 (Insurance Cov erage) Start: 08-30-2024 Creatinine measurement Serum Creatinine [facility] Start: 08-05-2024 Annual PCP Team Chronic Disease Visit Annual PCP Team Chronic Disease Visit [facility] Start: 08-04-2024 Hemoglobin A1c measurement HbA1C [facility] Start: 08-02-2024 Complete blood count Hemoglobin/Hematocrit [facility] Start: 08-02-2024 Creatinine measurement Serum Creatinine [facility] Start: 08-02-2024 Hepatitis B screening Urine Albumin:Creatinine Ratio [facility] Start: 08-02-2024 Hepatitis B surface antibody level LDL Cholesterol [facility] Start: 07-04-2024 End: 07-04-2024 Patient encounter procedure 07/04/2024 4:20 PM EST Office Visit Endocrinology [address] [place] [id number] Dung Aaron MD [address] [place] [id number] 3 MO f/u Endocrinology Comment on above: 3 MO f/u Start: 06-21-2024 Advance Directive Discussion Advance Directive Discussion [facility] Start: 06-12-2024 Hemoglobin A1c measurement HbA1C [facility] Start: 05-05-2024 End: 05-05-2024 Patient encounter procedure 05/05/2024 2:20 PM EST Office Visit Family [facility] [place] [address] [place], [place] [phone] Micky Pendleton MD [address] [place], [place] [phone] medicare wellness [facility] [place] Comment on above: medicare wellness Start: 05-02-2024 End: 08-01-2024 25-hydroxyvitamin D3 [Mass/volume] in Serum or Plasma VITAMIN D 25 HYDROXY Lab Routine Vitamin D deficiency Expected: 05/02/2024, Expires: 08/01/2024 [facility] Comment on above: Expected: 05/02/2024, Expires: Start: 05-02-2024 End: 08-01-2024 CBC W Auto Differential panel - Blood COMPLETE BLOOD COUNT AND DIFFERENTIAL Lab Routine Type 2 diabetes mellitus with microalbuminuria, without long-term current use of insulin (HCC) Stage 3a chronic kidney disease (HCC) Expected: 05/02/2024, Expires: 08/01/2024 [facility] Comment on above: Expected: 05/02/2024, Expires: Start: 05-02-2024 End: 08-01-2024 Comprehensive metabolic 2000 panel - Serum or Plasma COMPREHENSIVE METABOLIC PANEL Lab Routine Essential hypertension, benign Hyperlipidemia, mixed Type 2 diabetes mellitus with microalbuminuria, without long-term current use of insulin (HCC) Stage 3a chronic kidney disease (HCC) Expected: 05/02/2024, Expires: 08/01/2024 [facility] Comment on above: Expected: 05/02/2024, Expires: Start: 05-02-2024 End: 08-01-2024 Hemoglobin A1c in Blood HEMOGLOBIN A1C Lab Routine Type 2 diabetes mellitus with microalbuminuria, without long-term current use of insulin (HCC) Expected: 05/02/2024, Expires: 08/01/2024 [facility] Comment on above: Expected: 05/02/2024, Expires: Start: 05-02-2024 End: 08-01-2024 LIPID PANEL, NONFASTING LIPID PANEL, NONFASTING Lab Routine Essential hypertension, benign Hyperlipidemia, mixed Type 2 diabetes mellitus with microalbuminuria, without long-term current use of insulin (HCC) Expected: 05/02/2024, Expires: 08/01/2024 [facility] Comment on above: Expected: 05/02/2024, Expires: Start: 05-02-2024 End: 08-01-2024 Microalbumin/Creatinine [Mass Ratio] in Urine ALBUMIN/CREATININE RATIO, URINE Lab Routine Type 2 diabetes mellitus with microalbuminuria, without long-term current use of insulin (HCC) Expected: 05/02/2024, Expires: 08/01/2024 [facility] Work Phone: Comment on above: Expected: 05/02/2024, Expires: Start: 05-02-2024 End: 08-01-2024 Thyrotropin [Units/volume] in Serum or Plasma THYROID STIMULATING HORMONE Lab Routine Acquired hypothyroidism Expected: 05/02/2024, Expires: 08/01/2024 [facility] Comment on above: Expected: 05/02/2024, Expires: Start: 05-02-2024 End: 08-01-2024 Urinalysis complete panel - Urine URINALYSIS, WITH MICROSCOPIC Lab Routine Essential hypertension, benign Hyperlipidemia, mixed Type 2 diabetes mellitus with microalbuminuria, without long-term current use of insulin (HCC) Stage 3a chronic kidney disease (HCC) Expected: 05/02/2024, Expires: 08/01/2024 [facility] Comment on above: Expected: 05/02/2024, Expires: Start: 03-17-2024 Hemoglobin A1c measurement HbA1C [facility] Start: 03-13-2024 End: 03-13-2024 Patient encounter procedure 03/13/2024 4:20 PM EDT Office Visit Endocrinology [address] [place] [address] Dung Aaron MD [address] [facility], [place] [id number] 3 MO f/u Endocrinology Comment on above: 3 MO f/u Start: 02-20-2024 Covid-19 Vaccine () Covid-19 Vaccine () [facility] Start: 02-20-2024 Influenza vaccination Influenza Vaccine (#1) [facility] Start: 02-15-2024 End: 02-15-2024 Patient encounter procedure 02/15/2024 2:00 PM EDT Office Visit Family [facility] [place] [address] [facility], [place] [id number] Micky Pendleton MD [address] [facility] [place] [address] medicare wellness [facility] [place] Comment on above: medicare wellness Start: 01-12-2024 End: 01-12-2024 Patient encounter procedure 01/12/2024 3:20 PM EDT Office [facility] [place] [address] [facility] [place] [id number] Micky Pendleton MD [address] [facility], [place] [address] medicare wellness [facility] [place] Comment on above: medicare wellness Start: 12-24-2023 End: 03-24-2024 Comprehensive metabolic 2000 panel - Serum or Plasma COMP METABOLIC PANEL Lab Routine Type 2 diabetes mellitus with stage 3a chronic kidney disease, without long-term current use of insulin (HCC) Stage 3a chronic kidney disease (HCC) Expected: 12/24/2023, Expires: 03/24/2024 [facility] Work Phone: Comment on above: Expected: 12/24/2023, Expires: Start: 12-24-2023 End: 03-24-2024 LIPID PANEL, NONFASTING LIPID PANEL, NONFASTING Lab Routine Type 2 diabetes mellitus with stage 3a chronic kidney disease, without long-term current use of insulin (HCC) Stage 3a chronic kidney disease (HCC) Essential hypertension, benign Hyperlipidemia, mixed Expected: 12/24/2023, Expires: 03/24/2024 [facility] Work Phone: Comment on above: Expected: 12/24/2023, Expires: Start: 12-24-2023 End: 03-24-2024 Thyrotropin [Units/volume] in Serum or Plasma TSH BLD Lab Routine Acquired hypothyroidism Expected: 12/24/2023, Expires: 03/24/2024 [facility] Work Phone: Comment on above: Expected: 12/24/2023, Expires: Start: 12-10-2023 End: 12-10-2023 Patient encounter procedure 12/10/2023 4:20 PM EDT Office Visit Endocrinology [address] [place] [address] Dung Aaron MD [address] [facility] [place] [id number] Type 2 diabetes mellitus with microalbuminuria follow up Endocrinology Comment on above: Type 2 diabetes mellitus with microalbum inuria follow up Start: 12-10-2023 End: 03-10-2024 Hemoglobin A1c in Blood HEMOGLOBIN A1C Lab Routine Type 2 diabetes mellitus with microalbuminuria, without long-term current use of insulin (HCC) Expected: 12/10/2023, Expires: 03/10/2024 [facility] Work Phone: Comment on above: Expected: 12/10/2023, Expires: Start: 10-31-2023 Hemoglobin A1c measurement HbA1C [facility] Start: 08-26-2023 ANNUAL PCP TEAM CHRONIC DISEASE VISIT ANNUAL PCP TEAM CHRONIC DISEASE VISIT [facility] Start: 08-26-2023 BP CONTROLLED (<130/80) BP CONTROLLED (<130/80) [facility] in Start: 08-22-2023 Hepatitis B surface antibody level LDL CHOLESTEROL [facility] Start: 08-05-2023 End: 11-04-2023 Basic metabolic 2000 panel - Serum or Plasma BASIC METABOLIC PNL Lab Routine Stage 3a chronic kidney disease (HCC) Expected: 08/05/2023, Expires: 11/04/2023 [facility] Work Phone: Comment on above: Expected: 08/05/2023, Expires: Start: 06-21-2023 Advance Directive Discussion Advance Directive Discussion [facility] Start: 06-21-2023 Behavioral Health Screening Behavioral Health Screening [facility] Start: 06-21-2023 Depression Assessment Depression Assessment [facility] Start: 05-05-2023 ANNUAL PCP TEAM CHRONIC DISEASE VISIT ANNUAL PCP TEAM CHRONIC DISEASE VISIT [facility] Start: 05-01-2023 Hepatitis B surface antibody level LDL CHOLESTEROL [facility] Start: 02-19-2023 Covid-19 Vaccine () Covid-19 Vaccine () [facility] Start: 02-19-2023 Influenza vaccination [facility] Start: 01-14-2023 BP CONTROLLED (<130/80) BP CONTROLLED (<130/80) [facility] Start: 11-25-2022 End: 01-25-2023 25-hydroxyvitamin D3 [Mass/volume] in Serum or Plasma VITAMIN D 25 HYDROXY Lab Routine Vitamin D deficiency Expected: 11/25/2022, Expires: 01/25/2023 [facility] Work Phone: Comment on above: Expected: 11/25/2022, Expires: 3 Start: 11-25-2022 End: 01-25-2023 ALBUMIN/CREAT RATIO RND UR ALBUMIN/CREAT RATIO RND UR Lab Routine Type 2 diabetes mellitus with microalbuminuria, without long-term current use of insulin (HCC) Expected: 11/25/2022, Expires: 01/25/2023 [facility] Work Phone: Comment on above: Expected: 11/25/2022, Expires: 3 Start: 11-25-2022 End: 01-25-2023 Comprehensive metabolic 2000 panel - Serum or Plasma COMP METABOLIC PANEL Lab Routine Type 2 diabetes mellitus with microalbuminuria, without long-term current use of insulin (HCC) Vitamin D deficiency Expected: 11/25/2022, Expires: 01/25/2023 [facility] Work Phone: Comment on above: Expected: 11/25/2022, Expires: Start: 11-25-2022 End: 01-25-2023 Hemoglobin A1c in Blood HGB A1C Lab Routine Type 2 diabetes mellitus with microalbuminuria, without long-term current use of insulin (HCC) Expected: 11/25/2022, Expires: 01/25/2023 [facility] Work Phone: Comment on above: Expected: 11/25/2022, Expires: 3 Start: 11-25-2022 End: 01-25-2023 LIPID PANEL, NONFASTING LIPID PANEL, NONFASTING Lab Routine Hyperlipidemia, mixed Expected: 11/25/2022, Expires: 01/25/2023 [facility] Work Phone: Comment on above: Expected: 11/25/2022, Expires: 3 Start: 11-25-2022 End: 01-25-2023 Thyrotropin [Units/volume] in Serum or Plasma TSH BLD Lab Routine Acquired hypothyroidism Expected: 11/25/2022, Expires: 01/25/2023 [facility] Work Phone: Comment on above: Expected: 11/25/2022, Expires: 3 Start: 11-25-2022 End: 01-25-2023 Urinalysis complete panel - Urine URINALYSIS, WITH MICROSCOPIC Lab Routine Type 2 diabetes mellitus with microalbuminuria, without long-term current use of insulin (HCC) Expected: 11/25/2022, Expires: 01/25/2023 [facility] Work Phone: Comment on above: Expected: 11/25/2022, Expires: Start: 11-21-2022 Hemoglobin A1c/Hemoglobin.total in Blood HBA1C [facility] Start: 11-14-2022 3 comp foot exam completed DIABETIC FOOT EXAM [facility] Start: 11-14-2022 Adult depression screening assessment DEPRESSION SCREENING [facility] Start: 11-14-2022 ANNUAL PCP TEAM CHRONIC DISEASE VISIT ANNUAL PCP TEAM CHRONIC DISEASE VISIT [facility] Start: 11-14-2022 Diabetic foot examination Diabetic Foot Exam [facility] Start: 11-14-2022 SHINGRIX VACCINE (1 of 2) SHINGRIX VACCINE (1 of 2) [facility] Comment on above: Postponed from 09/20/1993 (Insurance Cov erage) Start: 11-14-2022 Urine microalbumin profile DTAP,TDAP,TD (1 - Tdap) [facility] Comment on above: Postponed from 09/20/1962 (Declined at t his time) Start: 11-11-2022 Hepatitis B screening URINE ALBUMIN:CREATININE RATIO [facility] Start: 11-11-2022 Hepatitis B surface antibody level LDL CHOLESTEROL [facility] Start: 09-03-2022 Glaucoma screening Dilated Retinal Exam [facility] Start: 09-03-2022 Hepatitis C antibody, confirmatory test DILATED RETINAL EXAM [facility] Start: 08-01-2022 Hemoglobin A1c/Hemoglobin.total in Blood HBA1C [facility] Start: 07-25-2022 COVID-19 VACCINE (5 - Moderna series) COVID-19 VACCINE (5 - Moderna series) [facility] Start: 06-21-2022 ADVANCE DIRECTIVE DISCUSSION ADVANCE DIRECTIVE DISCUSSION [facility] Start: 06-21-2022 DEPRESSION ASSESSMENT DEPRESSION ASSESSMENT [facility] Start: 03-31-2022 ANNUAL PCP TEAM CHRONIC DISEASE VISIT ANNUAL PCP TEAM CHRONIC DISEASE VISIT [facility] Start: 03-27-2022 Hepatitis B screening URINE ALBUMIN:CREATININE RATIO [facility] Start: 03-27-2022 Hepatitis B surface antibody level LDL CHOLESTEROL [facility] Start: 03-06-2022 End: 05-06-2022 Basic metabolic 2000 panel - Serum or Plasma BASIC METABOLIC PNL Lab Routine Type 2 diabetes mellitus with microalbuminuria, without long-term current use of insulin (HCC) Essential hypertension, benign Hyperlipidemia, mixed Expected: 03/06/2022, Expires: 05/06/2022 [facility] Work Phone: Comment on above: Expected: 03/06/2022, Expires: Start: 03-06-2022 End: 05-06-2022 Hemoglobin A1c/Hemoglobin.total in Blood HGB A1C Lab Routine Type 2 diabetes mellitus with microalbuminuria, without long-term current use of insulin (HCC) Expected: 03/06/2022, Expires: 05/06/2022 [facility] Work Phone: Comment on above: Expected: 03/06/2022, Expires: 2 Start: 03-06-2022 End: 05-06-2022 LIPID PANEL, NONFASTING LIPID PANEL, NONFASTING Lab Routine Type 2 diabetes mellitus with microalbuminuria, without long-term current use of insulin (HCC) Essential hypertension, benign Hyperlipidemia, mixed Expected: 03/06/2022, Expires: 05/06/2022 [facility] Work Phone: Comment on above: Expected: 03/06/2022, Expires: 2 Start: 03-06-2022 End: 05-06-2022 Thyrotropin [Units/volume] in Serum or Plasma TSH BLD Lab Routine Acquired hypothyroidism Expected: 03/06/2022, Expires: 05/06/2022 [facility] Work Phone: Comment on above: Expected: 03/06/2022, Expires: 2 Start: 02-19-2022 Influenza vaccination INFLUENZA (#1) [facility] Start: 02-11-2022 Hemoglobin A1c/Hemoglobin.total in Blood HBA1C [facility] Start: 01-14-2022 End: 03-16-2022 Thyrotropin [Units/volume] in Serum or Plasma TSH BLD Lab Routine Acquired hypothyroidism Expected: 01/14/2022, Expires: 03/16/2022 [facility] Work Phone: Comment on above: Expected: 01/14/2022, Expires: 2 Start: 11-10-2021 End: 01-10-2022 ALBUMIN/CREAT RATIO RND UR ALBUMIN/CREAT RATIO RND UR Lab Routine Type 2 diabetes mellitus with microalbuminuria, 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) Expected: 11/10/2021, Expires: 01/10/2022 [facility] Work Phone: Comment on above: Expected: 11/10/2021, Expires: 2 Start: 11-10-2021 End: 01-10-2022 Basic metabolic 2000 panel - Serum or Plasma BASIC METABOLIC PNL Lab Routine Essential hypertension, benign Hyperlipidemia, mixed Type 2 diabetes mellitus with microalbuminuria, 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) Expected: 11/10/2021, Expires: 01/10/2022 [facility] Work Phone: Comment on above: Expected: 11/10/2021, Expires: 2 Start: 11-10-2021 End: 01-10-2022 Hemoglobin A1c/Hemoglobin.total in Blood HGB A1C Lab Routine Type 2 diabetes mellitus with microalbuminuria, 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) Expected: 11/10/2021, Expires: 01/10/2022 [facility] Work Phone: Comment on above: Expected: 11/10/2021, Expires: 2 Start: 11-10-2021 End: 01-10-2022 LIPID PANEL, NONFASTING LIPID PANEL, NONFASTING Lab Routine Essential hypertension, benign Hyperlipidemia, mixed Type 2 diabetes mellitus with microalbuminuria, 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) Expected: 11/10/2021, Expires: 01/10/2022 [facility] Work Phone: Comment on above: Expected: 11/10/2021, Expires: 2 Start: 11-10-2021 End: 01-10-2022 Thyrotropin [Units/volume] in Serum or Plasma TSH BLD Lab Routine Acquired hypothyroidism Expected: 11/10/2021, Expires: 01/10/2022 [facility] Work Phone: Comment on above: Expected: 11/10/2021, Expires: 2 Start: 11-10-2021 End: 01-10-2022 Urinalysis complete panel - Urine URINALYSIS, WITH MICROSCOPIC Lab Routine Essential hypertension, benign Hyperlipidemia, mixed Type 2 diabetes mellitus with microalbuminuria, 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) Expected: 11/10/2021, Expires: 01/10/2022 [facility] Work Phone: Comment on above: Expected: 11/10/2021, Expires: 2 Start: 11-10-2021 End: 01-10-2022 VITAMIN D 25 HYDROXY VITAMIN D 25 HYDROXY Lab Routine Vitamin D deficiency Expected: 11/10/2021, Expires: 01/10/2022 [facility] Work Phone: Comment on above: Expected: 11/10/2021, Expires: 2 Start: 08-27-2021 COVID-19 VACCINE (4 - Booster for Moderna series) COVID-19 VACCINE (4 - Booster for Moderna series) [facility] Start: 06-27-2021 Hemoglobin A1c/Hemoglobin.total in Blood HBA1C [facility] Start: 06-24-2021 COVID-19 VACCINE (4 - Booster for Moderna series) COVID-19 VACCINE (4 - Booster for Moderna series) [facility] Start: 06-21-2021 ADVANCE DIRECTIVE DISCUSSION ADVANCE DIRECTIVE DISCUSSION [facility] Start: 06-21-2021 DEPRESSION ASSESSMENT DEPRESSION ASSESSMENT [facility] Start: 02-18-2021 3 comp foot exam completed DIABETIC FOOT EXAM [facility] Start: 01-07-2020 BP CONTROLLED (<130/80) BP CONTROLLED (<130/80) [facility] Start: 12-02-2019 Adult depression screening assessment DEPRESSION SCREENING [facility] Start: 09-20-2018 RSV Vaccine (1 - 1-dose 75+ series) RSV Vaccine (1 - 1-dose 75+ series) [facility] Start: 04-10-2017 FECAL OCCULT BLOOD FECAL OCCULT BLOOD [facility] Start: 2003 Hepatitis B Vaccine (1 of 3 - Risk 3-dose series) Hepatitis B Vaccine (1 of 3 - Risk 3-dose series) [facility] Start: 2003 RSV Vaccine (1 - 1-dose 60+ series) RSV Vaccine (1 - 1-dose 60+ series) [facility] Start: 09-20-1993 SHINGRIX VACCINE (1 of 2) SHINGRIX VACCINE (1 of 2) [facility] Start: 09-20-1962 Urine microalbumin profile [facility] Start: 09-20-1961 Anxiety Screening Anxiety Screening [facility] Start: 09-20-1961 Depression Screening Depression Screening [facility] Start: 09-20-1961 HEPATITIS C SCREENING HEPATITIS C SCREENING [facility] End: 01-19-2026 Echocardiography ECHO Cardiology Routine Dysarthria Confusion Lacunar infarction (HCC) 1 Occurrences starting 01/19/2025 until 01/19/2026 [facility] Work Phone: Comment on above: 1 Occurrences starting 01/19/2025 until 01/19/2026 Lactic acid measurement [facility] Patient Education ED Anxiety [facility]achita ction ED Chest Pain, Noncardiac [facility] Work Phone: Troponin T.cardiac [Mass/volume] in Serum or Plasma by High sensitivity method [facility] Urine culture [facility] End: 01-19-2026 US Carotid arteries - bilateral US CAROTID ARTERIES [facility] Vascular Lab Routine Dysarthria Confusion Lacunar infarction (HCC) 1 Occurrences starting 01/19/2025 until 01/19/2026 [facility] Comment on above: 1 Occurrences starting 01/19/2025 until 01/19/2026 End: 12-14-2022 XR KNEE GENERAL 4V AP BOTH/PA BOTH/LAT/MERC BILATERAL XR KNEE GENERAL 4V AP BOTH/PA BOTH/LAT/MERC BILATERAL Radiology Routine Chronic pain of right knee 1 Occurrences starting 11/14/2021 until 12/14/2022 [facility] Work Phone: Comment on above: 1 Occurrences starting 11/14/2021 until 12/14/2022 [facility] Immunizations Immunization Date Immunization Notes Care Provider Dharmesh phelan 05-05-2024 influenza, high dose seasonal, preservative-free Micky Pendleton MD Work Phone: [facility] 05-05-2024 influenza virus vacc ine, unspecified formulation Dung Aaron MD Work Phone: [facility] 08-05-2023 influenza (HD-IIV4) vaccine, age 65+ yr, high dose, quadrivalent, PF (FLUZONE HIGH-DOSE) Deisi Calle PA-C Work Phone: [facility] 08-05-2023 influenza virus vacc ine, unspecified formulation Dung Aaron MD Work Phone: [facility] 05-05-2022 influenza, high-dose , quadrivalent vaccine (FLUZONE HIGH DOSE QUADRIVALENT) Micky Pendleton MD Work Phone: [facility] 05-05-2022 influenza virus vacc ine, unspecified formulation Micky Pendleton MD Work Phone: [facility] 03-31-2021 influenza, high-dose , quadrivalent vaccine (FLUZONE HIGH DOSE QUADRIVALENT) Micky Pendleton MD Work Phone: [facility] 04-12-2020 influenza, high-dose , quadrivalent vaccine (FLUZONE HIGH DOSE QUADRIVALENT) Micky Pendleton MD Work Phone: [facility] Work Phone: 05-02-2019 influenza, high dose seasonal, preservative-free Micky Pendleton MD Work Phone: [facility] 05-06-2018 influenza, high dose seasonal, preservative-free Micky Pendleton MD Work Phone: [facility] Work Phone: 03-11-2017 influenza, high dose seasonal, preservative-free Micky Pendleton MD Work Phone: [facility] 04-15-2016 influenza, high dose seasonal, preservative-free Micky Pendleton MD Work Phone: [facility] 12-17-2015 pneumococcal polysaccharide vaccine, 23 valent Micky Pendleton MD Work Phone: [facility] 11-15-2014 pneumococcal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 of breast Hyperlipidemia, mixed 08/08/[address] 11/14/2021 DPA: ? Meningioma ([facility]) 12/29/2024 CT [facility] ER 12/2024: 1.1 x 1.4 cm Rt Frontal lobe Mild nonproliferative diabetic retinopath (more content not included)... [facility] 01-15-2025 History of Presen t illness Narrative [facility] Follow up visit History of present illness: This is a 79-year old female with past medical history significant for poorly controlled type 2 diabetes mellitus, complicated by nonproliferative diabetic retinopathy, diabetic nephropathy, hypertension, hyperlipidemia, congestive heart failure who is presenting for management of diabetes Initial visit 08/2023 Last visit 09/2024 -Initially diagnosed: at the age of 58 years -Circumstances around diagnosis: on routine labs She was started on metformin 500 mg daily by her family doctor, Dr. Irvin She reported going to a course for diabetes/diabetes education class when she was first diagnosed with diabetes 20 years ago, where she was started about dietary modifications and exercise, with provision of meals at the same course, and distribution of booklets for helping diabetics. She reports following these for a couple of years when her blood sugar control was good. She was also exercising at that time at the [facility] for 3 times a week, which also helped her blood sugars. She reports she has not been doing any exercise due to closure of [facility] during . She also reports not following the diet anymore. She reported seeing plastic card grad[employer] cardroom few months ago- reports was not helpful and does not want to go back to [facility] or any nutrition counseling/diabetes education programs. She would like to follow what she learned about 20 years ago. She denied any history of surgical procedures on the pancreas, pancreatic cancer, pancreatitis or hospitalizations for DKA or [facility] Denies any family history of diabetes mellitus, to the best of her knowledge She continues to report diarrhea, from glimepiride and not much effect after reducing the dose by half on last visit. She claims diarrhea is not due to metformin, but rather due to glimepiride Interval history: 01/15/25: She resumed amaryl 4 mg daily again as instructed, but she reports not being sure if this is once daily or twice daily Continues to take metformin 1000 mg BID and Januvia 100 mg daily as is She reports checking BG every 2 days, but no readings available, brought a log with one BG reading in November 20, 2024 and one from Jul 04, 2024 Reports improvement in blood glucose levels since resuming glimepiride, with previous levels reaching 400 mg/dL. Noted that increased physical activity correlates with lower blood glucose readings. Engages in daily exercise for 30 minutes Reports she has reduced sugar intake, avoiding brownies and cookies; consumes "no sugar added" ice cream occasionally. 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 Irvin Obesity -- Yes Other -- No Diabetic education class: were completed as above Diabetes Medications: -Current regimen: metformin 1000 mg BID, amaryl 4 mg twice daily, Janvuia 100 mg daily -Misses doses: None -Adverse medication effects: reports dizziness with Amaryl She has used Jardiance in the past, but was discontinued due to yeast infection . Blood sugars -Self monitoring of blood sugar via fingerstick: in the past. Few readings as above . Lifestyle -Exercise: 30 mins while watching TV -Diet: Eats all 3 meals, admits to not following a completely diabetic diet or low carb diet She reports eating a lot of carbs now as above . Blood pressure -Current antihypertensive therapy: Lisinopril 30 mg once daily, labetalol 100 mg 4 tablets 2 times a day, hydralazine 25 mg once daily, Lasix 20 mg once daily . Lipids -Last lipid panel: 10/2024 -Currently on Statin therapy: no ROS: 10 point ROS was reviewed and negative unless indicated in the HPI Past Medical History PAST MEDICAL HISTORY Diagnosis Date Acquired hypothyroidism 10/18/2013 Advance directive discussed with patient 11/14/2021 Discussed 10/2021 Arthritis of both knees 12/02/2021 Bilateral nonexudative age-related macular degeneration 03/31/2021 Dr. Mahan Chronic pain of right knee 11/14/2021 Diabetic eye exam ([facility]) 04/01/2021 Last done. 09/03/2021. [facility]. Every 4-6 months Encounter for Medicare annual wellness exam 05/05/2024 Last done: 05/05/2024 Essential hypertension, benign Fibroadenosis of breast Hyperlipidemia, mixed 08/08/[address] 11/14/2021 DPA: ? 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 Mahan- [facility] Obesity, Class I, BMI 30-34.9 08/15/2012 Obesity, Class II, BMI 35-39.9 08/15/2012 Other chronic pain 04/02/2021 Right knee pain 04/02/2021 Stage 3a chronic kidney disease ([facility]) 08/05/2023 Type 2 diabetes mellitus with microalbuminuria, without long-term current use of insulin ([facility]) 04/15/2016 Type 2 diabetes mellitus with stage 3a chronic kidney disease, without long-term current use of insulin ([facility]) 09/03/2023 Vitamin D deficiency 10/19/2013 Past Surgical History PAST SURGICAL HISTORY Procedure Laterality Date STEREOTACTIC CORE BIOPSY 07/05/08 Family History FAMILY HISTORY Problem Relation Age of Onset Arthritis Mother Heart Father Heart Maternal Uncle Hypertension Sister Hypertension Brother Social History Social History Tobacco Use Smoking status: Never Smokeless tobacco: Never Substance Use Topics Alcohol use: No Drug use: No Allergies ALLERGIES Allergen Reactions Penicillins Rash Sulfa (Sulfonamide * Rash Hctz [Hydrochloroth* Unknown Jardiance [Empaglif* Itching vaginally Norvasc [Amlodipine* Other: See Comments Thinning of the hair Current Medications Current Outpatient Medications Medication Sig Dispense Refill SITagliptin phosphate (JANUVIA) 100 mg tablet Take 1 tablet by mouth once daily. 90 tablet 0 labetalol (TRANDATE) 200 mg tablet Take 3 tablets by mouth two times a day. 180 tablet 5 levothyroxine (SYNTHROID) 75 mcg tablet Take 1 tablet by mouth once daily. Wed-Wed and two on Wednesday Take on empty stomach. For Thyroid 34 tablet 5 blood sugar diagnostic (TRUE METRIX GLUCOSE TEST STRIP) test strip 1 strip once daily. Use with blood glucose test 1 time a day. Insulin Dep? No 90 strip 1 metFORMIN (GLUCOPHAGE) 1,000 mg tablet Take 1 tablet by mouth two times a day with meals. 180 tablet 1 glimepiride (AMARYL) 4 mg tablet Take 1 tablet by mouth two times a day with meals. 180 tablet 0 lisinopril (ZESTRIL) 30 mg tablet Take 1 tablet by mouth two times a day. 60 tablet 5 furosemide (LASIX) 20 mg tablet Take 1 tablet by mouth once daily. 30 tablet 5 hydrALAZINE (APRESOLINE) 25 mg tablet Take 1 tablet by mouth four times daily. 360 tablet 1 Blood-Glucose Meter (TRUE METRIX GLUCOSE METER) monitoring kit 1 Each once daily as needed. 1 Kit 0 Lancets Test blood sugar(s) 1 times daily. Dx: E11.22 Insulin: No 100 Each 11 Cholecalciferol, Vitamin D3, 1,000 unit cap Take 1 capsule by mouth once daily. 30 capsule 11 No current facility-administered medications for this visit. Vitals: 01/15/25 1601 BP Site: Right Arm BP Position: Sitting BP Cuff Size: Regular Adult Pulse: 84 Resp: 16 Temp: 37 C (98.6 F) TempSrc: Temporal Artery SpO2: 94% Weight: 75.8 kg (167 lb) Physical Exam GENERAL: Well nourished, obese, well hydrated, in no distress and oriented x 3, walking with a cane EYES: no thyroid eye signs, EOMI NECK: , no tenderness and adenopathy THYROID: Non-tender to palpable, no evidence of goiter, no nodules palpable LUNGS: Unlabored on room air, no audible wheeze HEART: regular rate and rhythm GI: abdomen is soft, nontender EXTREMITIES: no edema NEURO: normal strength, no tremors on b/l upper extremities, monofilament testing done with normal sensations in 09/2024 OTHER: Acanthosis None Labs: Latest Ref Rng 10/16/2024 10/19/2024 11/03/2024 Protein, Total 6.3 - 8.0 g/dL 6.6 Albumin 3.9 - 4.9 g/dL 4.0 Calcium 8.5 - 10.2 mg/dL 9.2 Bilirubin, Total 0.2 - 1.3 mg/dL 0.3 Alkaline Phosphatase 34 - 123 U/L 51 AST 13 - 35 U/L 20 ALT 7 - 38 U/L 14 Glucose 74 - 99 mg/dL 294 (H) BUN 7 - 21 mg/dL 16 Creatinine 0.58 - 0.96 mg/dL 1.21 (H) Sodium 136 - 144 mmol/L 135 (L) Potassium 3.7 - 5.1 mmol/L 4.2 Chloride 98 - 107 mmol/L 96 (L) CO2 22 - 30 mmol/L 25 Anion Gap 8 - 15 mmol/L 14 eGFR >=60 mL/min/1.73m 45 (L) Total Cholesterol, Nonfasting <200 mg/dL 188 Triglycerides, Nonfasting <150 mg/dL 258 (H) HDL Cholesterol, Nonfasting >39 mg/dL 37 (L) LDL Cholesterol Calculated, Nonfasting <100 mg/dL 107 (H) Non HDL Cholesterol, Nonfasting <130 mg/dL 151 (H) VLDL Cholesterol, Nonfasting <30 mg/dL 43 (H) Total Chol/HDL Ratio, Nonfasting <5.10 mg/dL 5.08 LDL/HDL Ratio, Nonfasting <2.54 mg/dL 2.89 (H) Hemoglobin A1C 4.3 - 5.6 % 11.7 (H) Estimated Average Glucose mg/dL 289 Hemoglobin A1C (POCT) 4.3 - 5.6 % 12.1 ! TSH 0.270 - 4.200 mIU/L 2.420 Legend: ! Abnormal (H) High (L) Low Latest Ref Rng 02/15/2020 05/15/2020 03/27/2021 11/11/2021 05/01/2022 08/21/2022 08/02/2023 12/16/2023 05/04/2024 10/16/2024 11/03/2024 Hemoglobin A1C 4.3 - 5.6 % 9.7 (H) 8.1 (H) 9.2 (H) 9.9 (H) 9.9 (H) 10.2 (H) 10.6 (H) 8.7 (H) 10.4 (H) 12.1 (H) 11.7 (H) Estimated Average Glucose mg/dL 232 186 217 237 237 246 258 203 252 289 Legend: (H) High Hba1c POC in 09/2024 was 12.1%, in 10/2024 was 11.7% Assessment and Plan Poorly controlled type 2 DM with proliferative diabetic retinopathy, diabetic nephropathy, ?CHF -A1c 11.7% in 10/2024, can be considered stable -eGFR 45 in 10/2024, stable from 04/2024 -Current regimen: Metformin 1000 mg twice daily, Januvia 100 mg daily, amaryl 4 mg BID. But is only taking once a day amaryl and the other two medications Historically she has been very non compliant Plan: - She has used Jardiance in the past with yeast infection and reports higher propensity to have yeast infections -I do not prefer insulin for her due to age, and she does not prefer taking any injectables either, including GLP-1 Agonists - continue medications at metformin 1000 mg BID, Januvia 100 mg daily, amaryl 4 mg BID. Refills given - I also discussed lowering metformin dose if renal function worsens on blood work. For now can still continue, but renal function is borderline - I reviewed with her that the choices of medications are less and hence she has to cut down carbs -Check blood sugar atleast 2 to 3 time daily, before meals. Test strips refilled, advised bringing glucose log on next visit -Lifestyle modifications (diet, exercise) have been discussed with the patient. To continue exercising for 30 mins - we discussed about profound diet and lifestyle modifications to control BG as we have less options for diabetes in her case - she again declined diabetes education #Blood Pressure -Currently antihypertensive regimen: Lisinopril 30 mg once daily, hydralazine 25 mg once daily, labetalol 100 mg 4 times daily - On ACEi appropriately, PCP managing - she recently had an emergency visit to [facility] for hypertensive emergency. - advised low salt diet and compliance with medications. Reviewed uncontrolled diabetes and uncontrolled hypertension will lead to Coronary and cerebrovascular diseases #Dyslipidemia -Last lipid panel non fasting in 10/2024 showing LDL cholesterol at 107 mg/dL, triglycerides elevated to 258 mg/dL, total cholesterol at 188 mg/dL -Currently not on statin therapy - discussed about starting a cholesterol lowering medication on previous visits, patient declines and would like to concentrate on her diet and exercise first - discussed diet and exercise #Obesity Class II with serious comobidity -Diet and exercise discussed as above RTC in 2 months I spent a total of 31 minutes on the date of the service which included preparing to see the patient, [id number] patient care, completing clinical documentation, obtaining and/or reviewing separately obtained history, performing a medically appropriate examination, counseling and educating the patient/family/caregiver, ordering medications, tests, or procedures, independently interpreting results (not separately reported), and communicating results to the patient/family/caregiver. Medical Decision Making: Medical Decision Making Level: 1 - N/A Dung Aaron MD Endocrinology Associate Staff [facility] Endocrinology and Metabolism [place] [phone] documented in this encounter [facility] 12-27-2024 Radiology Diagnostic study note [facility] [address] [place], [place] [id number] Brain/Head without Contrast MR#: [id number] Acct: [id number] Name: CHALINO ARGUELLES Rep #: [id number] : 1945 F 79 From: Jordan Corona MD PCP: NOT,DEFINED Status: REG ER Study:Brain/Head without Contrast Date of Exa m: 12/27/24 Exam# [id number] Ordering Dr: Hiren Garber DO PROCEDURE: BRAIN/HEAD WITHOUT CONTRAST 12/27/2024 REASON FOR EXAM: CONFUSION TECHNIQUE: BRAIN/HEAD WITHOUT CONTRAST Coronal and Sagittal reconstruction series were provided. One or more dose reduction techniques were used (e.g., Automated exposure control, adjustment of the mA and/or kV according to patient size, use of iterative reconstruction technique. RADIATION DOSE SUMMARY: CTDlvol: 44.99 mGy DLP: 796.11 mGycm COMPARISON: None FINDINGS: Brain: Low density in the periventricular white matter suggests mild chronic small vessel ischemic changes. Old tiny lacunar infarct in the head of the left caudate nucleus. There is evidence of a calcified nodule in the anterior medial aspect of the left frontal lobe suggestive of a meningioma. This abuts the anterior aspect ofthe falx on the right side. CSF Spaces: Mild generalized cerebral atrophy Sinuses/Mastoids: Clear at visualized levels Bones: CT/Brain/Head without Contrast IMPRESSION: Cerebral atrophy. Old tiny lacune in the head of the caudate nucleus on the left side. Findings suggestive of a 1.1 cm x 1.4 cm meningioma in the anterior medial aspect of the right frontal lobe abutting the cerebral falx. Reading Location: [place] [address] CC: DEFINED NOT; Dr. Hiren Garber DO ~ Collaborative Physician: Signed [facility] 12-27-2024 Radiology Diagnostic study note [facility] Services [address] [place] [id number] Chest 1 View (Portable) MR#: [id number] Acct: [id number] Name: CHALINO ARGUELLES Rep #: [id number] : 1945 F 79 From: Michelle Bowling MD PCP: NOT,DEFINED Status: REG ER Study:Chest 1 View (Portable) Date of Exam: 12/27/24 Exam# [id number] Ordering Dr: Hiren Garber DO EXAM: XR Chest, 1 View CLINICAL INDICATION: CONFUSION TECHNIQUE: Frontal view of the chest. COMPARISON: No relevant prior studies available. FINDINGS: LUNGS AND PLEURAL SPACES: Unremarkable. No consolidation. No pneumothorax. HEART: Cardiomegaly without overt failure. MEDIASTINUM: Unremarkable. Normal mediastinal contour. BONES/JOINTS: Unremarkable. No acute fracture. RAD/Chest 1 View (Portable) IMPRESSION: Cardiomegaly without overt failure. Reading Location: [facility] CC: DEFINED NOT; Dr. Hiren Garber, DO ~ Collaborative Physician: Signed [facility] 12-27-2024 Note HNO ID: [id number] Author: LICO BARBOSA MD Service: ? Author Type: Physician Type: Progress Notes Filed: 12/27/2024 13:26 Note Text: Patient presents with her out of concern she may be having a stroke. Today she has had confusion, weakness, and trouble producing her speech comprehensively today. He will take her to the emergency room for further evaluation. [facility] 12-27-2024 History of Presen t illness Narrative Patient presents with her out of concern she may be having a stroke. Today she has had confusion, weakness, and trouble producing her speech comprehensively today. He will take her to the emergency room for further evaluation. documented in this encounter [facility] 12-19-2024 Telephone encounter Note Images from the original note were not included. Most recent Endocrinology visit: Last encounter Visit on 10/16/2024 (with Dung Turner Bendaram) 09/06/2023 in [facility] [place] with BENDARAM, DUNG TURNER for Type 2 diabetes mellitus with microalbuminuria, without long-term current use of insulin (HCC) 12/10/2023 in [facility] [place] with BENDARAM, DUNG TURNER for Type 2 diabetes mellitus with microalbuminuria, without long-term current use of insulin (HCC) 03/13/2024 in [facility] [place] with BENDARAM, DUNG TURNER for [facility] [place] [facility] BENDARAM, DUNG TURNER for Diabetes mellitus with stage 3 chronic kidney disease (HCC) Upcoming Endocrinology Appointments - Next 365 Days Visit Type Date Time Department EST JACQUIE PATIENT 01/15/2025 4:20 PM [facility] Requested Prescriptions Pending Prescriptions Disp Refills SITagliptin phosphate (JANUVIA) 100 mg tablet 90 tablet 0 Sig: Take 1 tablet by mouth once daily. Latest Ref Rng & Units 11/03/2024 10/16/2024 05/04/2024 Hemoglobin A1C Hemoglobin A1C 4.3 - 5.6 % 11.7 10.4 Hemoglobin A1C (POCT) 4.3 - 5.6 % 12.1 Latest Ref Rng & Units 11/03/2024 05/04/2024 08/02/2023 TSH TSH 0.270 - 4.200 mIU/L 2.420 2.700 3.730 Free T3: None on file in the last 12 months Free T4: None on file in the last 12 months Thyroglobulin: None on file in the last 12 months Latest Ref Rng & Units 05/04/2024 08/02/2023 11/11/2021 Vitamin D Vitamin D 25 Hydroxy 31.0 - 80.0 ng/mL 40.0 37.3 45.4 Latest Ref Rng & Units 05/04/2024 08/02/2023 03/27/2021 Hematocrit Hematocrit 36.0 - 46.0 % 37.7 38.1 37.9 Latest Ref Rng & Units 10/19/2024 05/04/2024 08/31/2023 Creatinine Creatinine 0.58 - 0.96 mg/dL 1.21 1.17 1.12 Latest Ref Rng & Units 10/19/2024 05/04/2024 08/31/2023 eGFR EGFR >=60 mL/min/1.73m 45 47 50 Latest Ref Rng & Units 10/19/2024 05/04/2024 08/31/2023 Potassium Potassium 3.7 - 5.1 mmol/L 4.2 4.1 4.2 Testosterone: None on file in the last 12 months IGF: None on file in the last 12 months Prolactin: None on file in the last 12 months Sanjana Michael RN December 19, 2024 1:46 PM [facility] 12-19-2024 Miscellaneous Notes Images from the original note were not included. Most recent Endocrinology visit: Last encounter Visit on 10/16/2024 (with Dung Turner Bendaram) 09/06/2023 in [facility] [place] with BENDARAM, DUNG TURNER for Type 2 diabetes mellitus with microalbuminuria, without long-term current use of insulin (HCC) 12/10/2023 in [facility] [place] with BENDARAM, DUNG TURENR for Type 2 diabetes mellitus with microalbuminuria, without long-term current use of insulin (HCC) 03/13/2024 in [facility] [place] with BENDARAM, DUNG TURNER for 10/16/2024 in [facility] [place] with BENDARAM, DUNG TURNER for Diabetes mellitus with stage 3 chronic kidney disease (HCC) Upcoming Endocrinology Appointments - Next 365 Days Visit Type Date Time Department EST JACQUIE PATIENT 01/15/2025 4:20 PM [facility] Requested Prescriptions Pending Prescriptions Disp Refills SITagliptin phosphate (JANUVIA) 100 mg tablet 90 tablet 0 Sig: Take 1 tablet by mouth once daily. Latest Ref Rng & Units 11/03/2024 10/16/2024 05/04/2024 Hemoglobin A1C Hemoglobin A1C 4.3 - 5.6 % 11.7 10.4 Hemoglobin A1C (POCT) 4.3 - 5.6 % 12.1 Latest Ref Rng & Units 11/03/2024 05/04/2024 08/02/2023 TSH TSH 0.270 - 4.200 mIU/L 2.420 2.700 3.730 Free T3: None on file in the last 12 months Free T4: None on file in the last 12 months Thyroglobulin: None on file in the last 12 months Latest Ref Rng & Units 05/04/2024 08/02/2023 11/11/2021 Vitamin D Vitamin D 25 Hydroxy 31.0 - 80.0 ng/mL 40.0 37.3 45.4 Latest Ref Rng & Units 05/04/2024 08/02/2023 03/27/2021 Hematocrit Hematocrit 36.0 - 46.0 % 37.7 38.1 37.9 Latest Ref Rng & Units 10/19/2024 05/04/2024 08/31/2023 Creatinine Creatinine 0.58 - 0.96 mg/dL 1.21 1.17 1.12 Latest Ref Rng & Units 10/19/2024 05/04/2024 08/31/2023 eGFR EGFR >=60 mL/min/1.73m 45 47 50 Latest Ref Rng & Units 10/19/2024 05/04/2024 08/31/2023 Potassium Potassium 3.7 - 5.1 mmol/L 4.2 4.1 4.2 Testosterone: None on file in the last 12 months IGF: None on file in the last 12 months Prolactin: None on file in the last 12 months Sanjana Michael RN December 19, 2024 1:46 PM documented in this encounter [facility] 12-12-2024 Note HNO ID: [id number] Author: DEISI CALLE PA-C Service: ? Author Type: Physician Collections Attorney Type: Progress Notes Filed: 12/12/2024 13:03 Note Text: Chief Complaint Patient presents with: Follow Up: Blood pressure HPI Chalino Arguelles is a 79 year old female who presents here today for recheck. Hypertension: - Recent medication adjustment: increased labetalol to 600 mg BID. - Previous BP readings at last visit: 152/94 mmHg and 146/90 mmHg. - Current BP: 122/74 mmHg; pulse: 76 bpm. - Home BP monitoring shows similar readings. - Follow-up appointment scheduled for May 01. Past medical history, appointments, medications, allergies reviewed. Previous Medical History PAST MEDICAL HISTORY Diagnosis Date Acquired hypothyroidism 10/18/2013 Advance directive discussed with patient 11/14/2021 Discussed 10/2021 Arthritis of both knees 12/02/2021 Bilateral nonexudative age-related macular degeneration 03/31/2021 Dr. Mahan Chronic pain of right knee 11/14/2021 Diabetic eye exam (HCC) 04/01/2021 Last done. 09/03/2021. [facility]. Every 4-6 months Encounter for Medicare annual wellness exam 05/05/2024 Last done: 05/05/2024 Essential hypertension, benign Fibroadenosis of breast Hyperlipidemia, mixed 08/08/[address] 11/14/2021 DPA: ? 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 Mahan- [facility] Obesity, Class I, BMI 30-34.9 08/15/2012 Obesity, Class II, BMI 35-39.9 08/15/2012 Other chronic pain 04/02/2021 Right knee pain 04/02/2021 Stage 3a chronic kidney disease ([facility]) 08/05/2023 Type 2 diabetes mellitus with microalbuminuria, without long-term current use of insulin ([facility]) 04/15/2016 Type 2 diabetes mellitus with stage 3a chronic kidney disease, without long-term current use of insulin ([facility]) 09/03/2023 Vitamin D deficiency 10/19/2013 Previous Surgical History PAST SURGICAL HISTORY Procedure Laterality Date STEREOTACTIC CORE BIOPSY 07/05/08 Family History FAMILY HISTORY Problem Relation Age of Onset Arthritis Mother Heart Father Heart Maternal Uncle Hypertension Sister Hypertension Brother Patient Allergies ALLERGIES Allergen Reactions Penicillins Rash Sulfa (Sulfonamide * Rash Hctz [Hydrochloroth* Unknown Jardiance [Empaglif* Itching vaginally Norvasc [Amlodipine* Other: See Comments Thinning of the hair Current Medications Current Outpatient Medications on File Prior to Visit Medication Sig labetalol (TRANDATE) 200 mg tablet Take 3 tablets by mouth two times a day. levothyroxine (SYNTHROID) 75 mcg tablet Take 1 tablet by mouth once daily. Wed-Wed and two on Wednesday Take on empty stomach. For Thyroid blood sugar diagnostic (TRUE METRIX GLUCOSE TEST STRIP) test strip 1 strip once daily. Use with blood glucose test 1 time a day. Insulin Dep? No metFORMIN (GLUCOPHAGE) 1,000 mg tablet Take 1 tablet by mouth two times a day with meals. SITagliptin phosphate (JANUVIA) 100 mg tablet Take 1 tablet by mouth once daily. glimepiride (AMARYL) 4 mg tablet Take 1 tablet by mouth two times a day with meals. lisinopril (ZESTRIL) 30 mg tablet Take 1 tablet by mouth two times a day. furosemide (LASIX) 20 mg tablet Take 1 tablet by mouth once daily. hydrALAZINE (APRESOLINE) 25 mg tablet Take 1 tablet by mouth four times daily. Blood-Glucose Meter (TRUE METRIX GLUCOSE METER) monitoring kit 1 Each once daily as needed. Lancets Test blood sugar(s) 1 times daily. Dx: E11.22 Insulin: No Cholecalciferol, Vitamin D3, 1,000 unit cap Take 1 capsule by mouth once daily. No current facility-administered medications on file prior to visit. Social History Social History Tobacco Use Smoking status: Never Smokeless tobacco: Never Substance Use Topics Alcohol use: No Drug use: No Review of Symptoms REVIEW OF SYSTEMS SEE HPI EXAM: BP 122/74 (BP Site: Right Arm, BP Position: Sitting, BP Cuff Size: Regular Adult) Pulse 76 Temp 37 ?C (98.6 ?F) Resp 18 Wt 75.8 kg (167 lb) SpO2 96% BMI 34.31 kg/m? General Appearance: Well appearing, alert, in no acute distress, well-hydrated, well nourished.. Lungs: Lungs clear to auscultation. No wheezing, rhonchi, rales.. Heart: RRR without murmur, gallop, or rubs. No ectopy. Health Maintenance List DTaP,Tdap,Td Vaccine(1 - Tdap) Never done Shingrix Vaccine(1 of 2) Never done RSV Vaccine(1 - 1-dose 75+ series) Never done Advance Directive Discussion due on 06/21/2024 Dilated Retinal Exam due on 12/05/2024 Covid-19 Vaccine() due on 05/05/2025 HbA1C due on 02/03/2025 Urine Albumin:Creatinine Ratio due on 05/04/2025 Diabetic Foot Exam due on 05/05/2025 Depression Screening due on 05/05/2025 Anxiety Screening due on 05/05/2025 Medicare Annual Wellness Visit due on 05/05/2025 LDL Cholesterol due on 11/03/2025 Bone Density Sc (more content not included)... [facility] 12-12-2024 History of Presen t illness Narrative Chief Complaint Patient presents with: Follow Up: Blood pressure HPI Chalino Arguelles is a 79 year old female who presents here today for recheck. Hypertension: - Recent medication adjustment: increased labetalol to 600 mg BID. - Previous BP readings at last visit: 152/94 mmHg and 146/90 mmHg. - Current BP: 122/74 mmHg; pulse: 76 bpm. - Home BP monitoring shows similar readings. - Follow-up appointment scheduled for May 01. Past medical history, appointments, medications, allergies reviewed. Previous Medical History PAST MEDICAL HISTORY Diagnosis Date Acquired hypothyroidism 10/18/2013 Advance directive discussed with patient 11/14/2021 Discussed 10/2021 Arthritis of both knees 12/02/2021 Bilateral nonexudative age-related macular degeneration 03/31/2021 Dr. Mahan Chronic pain of right knee 11/14/2021 Diabetic eye exam ([facility]) 04/01/2021 Last done. 09/03/2021. [facility]. Every 4-6 months Encounter for Medicare annual wellness exam 05/05/2024 Last done: 05/05/2024 Essential hypertension, benign Fibroadenosis of breast Hyperlipidemia, mixed 08/08/[address] 11/14/2021 DPA: ? 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 Mahan- [facility] Obesity, Class I, BMI 30-34.9 08/15/2012 Obesity, Class II, BMI 35-39.9 08/15/2012 Other chronic pain 04/02/2021 Right knee pain 04/02/2021 Stage 3a chronic kidney disease ([facility]) 08/05/2023 Type 2 diabetes mellitus with microalbuminuria, without long-term current use of insulin ([facility]) 04/15/2016 Type 2 diabetes mellitus with stage 3a chronic kidney disease, without long-term current use of insulin ([facility]) 09/03/2023 Vitamin D deficiency 10/19/2013 Previous Surgical History PAST SURGICAL HISTORY Procedure Laterality Date STEREOTACTIC CORE BIOPSY 07/05/08 Family History FAMILY HISTORY Problem Relation Age of Onset Arthritis Mother Heart Father Heart Maternal Uncle Hypertension Sister Hypertension Brother Patient Allergies ALLERGIES Allergen Reactions Penicillins Rash Sulfa (Sulfonamide * Rash Hctz [Hydrochloroth* Unknown Jardiance [Empaglif* Itching vaginally Norvasc [Amlodipine* Other: See Comments Thinning of the hair Current Medications Current Outpatient Medications on File Prior to Visit Medication Sig labetalol (TRANDATE) 200 mg tablet Take 3 tablets by mouth two times a day. levothyroxine (SYNTHROID) 75 mcg tablet Take 1 tablet by mouth once daily. Wed-Wed and two on Wednesday Take on empty stomach. For Thyroid blood sugar diagnostic (TRUE METRIX GLUCOSE TEST STRIP) test strip 1 strip once daily. Use with blood glucose test 1 time a day. Insulin Dep? No metFORMIN (GLUCOPHAGE) 1,000 mg tablet Take 1 tablet by mouth two times a day with meals. SITagliptin phosphate (JANUVIA) 100 mg tablet Take 1 tablet by mouth once daily. glimepiride (AMARYL) 4 mg tablet Take 1 tablet by mouth two times a day with meals. lisinopril (ZESTRIL) 30 mg tablet Take 1 tablet by mouth two times a day. furosemide (LASIX) 20 mg tablet Take 1 tablet by mouth once daily. hydrALAZINE (APRESOLINE) 25 mg tablet Take 1 tablet by mouth four times daily. Blood-Glucose Meter (TRUE METRIX GLUCOSE METER) monitoring kit 1 Each once daily as needed. Lancets Test blood sugar(s) 1 times daily. Dx: E11.22 Insulin: No Cholecalciferol, Vitamin D3, 1,000 unit cap Take 1 capsule by mouth once daily. No current facility-administered medications on file prior to visit. Social History Social History Tobacco Use Smoking status: Never Smokeless tobacco: Never Substance Use Topics Alcohol use: No Drug use: No Review of Symptoms REVIEW OF SYSTEMS SEE HPI EXAM: BP 122/74 (BP Site: Right Arm, BP Position: Sitting, BP Cuff Size: Regular Adult) Pulse 76 Temp 37 C (98.6 F) Resp 18 Wt 75.8 kg (167 lb) SpO2 96% BMI 34.31 kg/m General Appearance: Well appearing, alert, in no acute distress, well-hydrated, well nourished.. Lungs: Lungs clear to auscultation. No wheezing, rhonchi, rales.. Heart: RRR without murmur, gallop, or rubs. No ectopy. Health Maintenance List DTaP,Tdap,Td Vaccine(1 - Tdap) Never done Shingrix Vaccine(1 of 2) Never done RSV Vaccine(1 - 1-dose 75+ series) Never done Advance Directive Discussion due on 06/21/2024 Dilated Retinal Exam due on 12/05/2024 Covid-19 Vaccine() due on 05/05/2025 HbA1C due on 02/03/2025 Urine Albumin:Creatinine Ratio due on 05/04/2025 Diabetic Foot Exam due on 05/05/2025 Depression Screening due on 05/05/2025 Anxiety Screening due on 05/05/2025 Medicare Annual Wellness Visit due on 05/05/2025 LDL Cholesterol due on 11/03/2025 Bone Density Screening Completed Influenza Vaccine Completed Pneumococcal Vaccine: 50+ Completed Colorectal Cancer Screening Discontinued Data reviewed N/a Assessment and Plan 1. Essential hypertension, benign (I10) - Blood pressure readings have improved: previous readings were 152/94 mmHg and 146/90 mmHg; current reading is 122/74 mmHg with a pulse of 76 bpm. - Currently on Betalol 600 mg BID. - Continue current medication regimen. - Patient is monitoring blood pressure at home with similar readings. - Follow-up appointment scheduled for May 01. Deisi Calle PA-C Recording using [employer] software for draft documentation of the visit was discussed with the patient/authorized termite control service representative; all questions welcomed and answered. Patient/authorized termite control service representative agreed to proceed documented in this encounter [facility] 11-08-2024 Note HNO ID: [id number] Author: MICKY PENDLETON MD Service: ? Author Type: Physician Type: Progress Notes Filed: 11/08/2024 22:54 Note Text: Chief Complaint Patient presents with: F/U 6 months HPI Chalino Arguelles is a 79 year old female who presents here today for 6 month follow up. Patient with hx of uncontrolled DM2, hyperlipidemia, HTN, hypothyroid, arthritis, obesity, vit D def and those as below. Patient has been doing ok. Seeing Endo for her diabetes. Patient had been increasing the amount of veggies in her diet and started to get loose stools. She thought it was her amaryl and had stopped it but after recently seeing endo she was informed it was not the Amaryl. Patient has restarted the Amaryl. The dose of metformin she is on has been the same for over 11 years. Endo note reviewed. Past medical history, appointments, medications, allergies reviewed. Previous Medical History PAST MEDICAL HISTORY Diagnosis Date Acquired hypothyroidism 10/18/2013 Advance directive discussed with patient 11/14/2021 Discussed 10/2021 Arthritis of both knees 12/02/2021 Bilateral nonexudative age-related macular degeneration 03/31/2021 Dr. Mahan Chronic pain of right knee 11/14/2021 Diabetic eye exam ([facility]) 04/01/2021 Last done. 09/03/2021. [facility]. Every 4-6 months Encounter for Medicare annual wellness exam 05/05/2024 Last done: 05/05/2024 Essential hypertension, benign Fibroadenosis of breast Hyperlipidemia, mixed 08/08/[address] 11/14/2021 DPA: ? 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 Mahan- [facility] Obesity, Class II, BMI 35-39.9 08/15/2012 Other chronic pain 04/02/2021 Right knee pain 04/02/2021 Stage 3a chronic kidney disease ([facility]) 08/05/2023 Type 2 diabetes mellitus with microalbuminuria, without long-term current use of insulin ([facility]) 04/15/2016 Type 2 diabetes mellitus with stage 3a chronic kidney disease, without long-term current use of insulin ([facility]) 09/03/2023 Vitamin D deficiency 10/19/2013 Previous Surgical History PAST SURGICAL HISTORY Procedure Laterality Date STEREOTACTIC CORE BIOPSY 07/05/08 Family History FAMILY HISTORY Problem Relation Age of Onset Arthritis Mother Heart Father Heart Maternal Uncle Hypertension Sister Hypertension Brother Patient Allergies ALLERGIES Allergen Reactions Penicillins Rash Sulfa (Sulfonamide * Rash Hctz [Hydrochloroth* Unknown Jardiance [Empaglif* Itching vaginally Norvasc [Amlodipine* Other: See Comments Thinning of the hair Current Medications Current Outpatient Medications on File Prior to Visit Medication Sig levothyroxine (SYNTHROID) 75 mcg tablet Take 1 tablet by mouth once daily. Wed-Wed and two on Wednesday Take on empty stomach. For Thyroid blood sugar diagnostic (TRUE METRIX GLUCOSE TEST STRIP) test strip 1 strip once daily. Use with blood glucose test 1 time a day. Insulin Dep? No metFORMIN (GLUCOPHAGE) 1,000 mg tablet Take 1 tablet by mouth two times a day with meals. SITagliptin phosphate (JANUVIA) 100 mg tablet Take 1 tablet by mouth once daily. glimepiride (AMARYL) 4 mg tablet Take 1 tablet by mouth two times a day with meals. labetalol (TRANDATE) 100 mg tablet Take 4 tablets by mouth two times a day. lisinopril (ZESTRIL) 30 mg tablet Take 1 tablet by mouth two times a day. furosemide (LASIX) 20 mg tablet Take 1 tablet by mouth once daily. hydrALAZINE (APRESOLINE) 25 mg tablet Take 1 tablet by mouth four times daily. Blood-Glucose Meter (TRUE METRIX GLUCOSE METER) monitoring kit 1 Each once daily as needed. Lancets Test blood sugar(s) 1 times daily. Dx: E11.22 Insulin: No blood sugar diagnostic test strip Use with blood glucose test one to three times daily (Patient not taking: Reported on 10/16/2024) Cholecalciferol, Vitamin D3, 1,000 unit cap Take 1 capsule by mouth once daily. Blood-Glucose Meter, Drum-type (ACCU-CHEK COMPACT PLUS CARE) kit Dx.250.04 checks sugars once daily. No insulin (Patient not taking: Reported on 10/16/2024) No current facility-administered medications on file prior to visit. Social History Social History Tobacco Use Smoking status: Never Smokeless tobacco: Never Substance Use Topics Alcohol use: No Drug use: No Review of Symptoms REVIEW OF SYSTEMS GENERAL: No unintentional weight loss, malaise or fevers NECK: Negative for lumps, goiter, pain and significant neck swelling RESPIRATORY: Negative for cough, hemoptysis, wheezing, COPD, dyspnea or shortness of breath CARDIOVASCULAR: Negative for chest pain, leg swelling, hypertension, CHF or palpitations : No history of dysuria, blood ENDOCRINE: Negative for cold or heat intolerance, r NEURO: No history of headaches, syncope, paralysis, seizures or tremors EXAM: BP 152/94 Pulse 80 Resp 16 Wt 75.8 kg (167 lb) BMI 34.31 k (more content not included)... [facility] 11-03-2024 Evaluation note Diagnosis Type 2 diabetes mellitus with stage 3a chronic kidney disease, without long-term current use of insulin (HCC)- Primary Acquired hypothyroidism Unspecified hypothyroidism Hyperlipidemia, mixed Mixed hyperlipidemia documented in this encounter [facility]05-09-2025 Telephone encounter Note* Telephone Encounter - Tiffayn Carver - 10/27/2024 2:24 PM EDT Prescription Refill Information The patient has been identified by name and date of : Yes Caregiver verified no other encounters exist for this prescription request: Yes Caregiver confirmed with patient/requestor that no other refills are due, in the near future, with this provider at this time: Yes The last office visit in the department: 10/04/23 Does the patient have a future office visit with this provider/department: Yes Requested Prescriptions Pending Prescriptions Disp Refills levothyroxine (SYNTHROID) 75 mcg tablet 34 tablet 5 Sig: Take 1 tablet by mouth once daily. Mon-Sat and two on Wednesday Take on empty stomach. For Thyroid Tiffany October 27, 2024 2:24 PM [facility]05-09-2025 Miscellaneous Notes* Telephone Encounter - Tiffany Carver - 10/27/2024 2:24 PM EDT Prescription Refill Information The patient has been identified by name and date of : Yes Caregiver verified no other encounters exist for this prescription request: Yes Caregiver confirmed with patient/requestor that no other refills are due, in the near future, with this provider at this time: Yes The last office visit in the department: 10/04/23 Does the patient have a future office visit with this provider/department: Yes Requested Prescriptions Pending Prescriptions Disp Refills levothyroxine (SYNTHROID) 75 mcg tablet 34 tablet 5 Sig: Take 1 tablet by mouth once daily. Mon-Sat and two on Wednesday Take on empty stomach. For Thyroid Tiffany October 27, 2024 2:24 PM [facility] Instructions* Patient Instructions* Dung Aaron MD - 10/16/2024 4:47 PM EDT Please continue metformin 1000 mg twice daily, glimepiride 4 mg twice daily, Januvia 100 mg daily Check blood sugars atleast 2 to 3 times daily, before each meal Labs at your earliest convenience [facility] encounter[facility]04-[facility]25 NoteHNO ID: [id number] Author: DUNG AARON MD Service: ? Author Type: Physician Type: Progress Notes Filed: 10/16/2024 18:17 Note Text: [facility] Follow up visit History of present illness: This is a 79-year old female with past medical history significant for poorly controlled type 2 diabetes mellitus, complicated by nonproliferative diabetic retinopathy, diabetic nephropathy, hypertension, hyperlipidemia, congestive heart failure who is presenting for management of diabetes Last visit 02/2024 -Initially diagnosed: at the age of 58 years -Circumstances around diagnosis: on routine labs She was started on metformin 500 mg daily by her family doctor, Dr. Irvin She reported going to a course for diabetes/diabetes education class when she was first diagnosed with diabetes 20 years ago, where she was started about dietary modifications and exercise, with provision of meals at the same course, and distribution of booklets for helping diabetics. She reports following these for a couple of years when her blood sugar control was good. She was also exercising at that time at the [facility] for 3 times a week, which also helped her blood sugars. She reports she has not been doing any exercise due to closure of [facility] during . She also reports not following the diet anymore. She reported seeing [employer] few months ago- reports was not helpful and does not want to go back to [facility] or any nutrition counseling/diabetes education programs. She would like to follow what she learned about 20 years ago. She denied any history of surgical procedures on the pancreas, pancreatic cancer, pancreatitis or hospitalizations for DKA or HHS Denies any family history of diabetes mellitus, to the best of her knowledge She continues to report diarrhea, from glimepiride and not much effect after reducing the dose by half on last visit. She claims diarrhea is not due to metformin, but rather due to glimepiride Interval history: 10/16/24: She reports she missed her 06/2024 appt due to being sick for a long time She was on amaryl 4 mg daily, but she admits today that I was right saying her loose stools were not due to this medication after she changed her diet. She went to [facility] gl[facility]piride 4 mg twice daily- and ran out of the medication for one month or more. 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 Irvin Obesity -- Yes Other -- No Diabetic education class: were completed as above Diabetes Medications: -Current regimen: metformin 1000 mg BID, amaryl 4 mg twice daily, Janvuia 100 mg daily -Misses doses: None -Adverse medication effects: reports dizziness with Amaryl She has used Jardiance in the past, but was discontinued due to yeast infection . Blood sugars -Self monitoring of blood sugar via fingerstick: in the past. Has ran out and reports she was denied refills by the pharmacy. Has not been checking finger stick BG . Lifestyle -Exercise: no routine exercise -Diet: Eats all 3 meals, admits to not following a completely diabetic diet or low carb diet She reports eating a lot of carbs now . Blood pressure -Current antihypertensive therapy: Lisinopril 30 mg once daily, labetalol 100 mg 4 tablets 2 times a day, hydralazine 25 mg once daily, Lasix 20 mg once daily . Lipids -Last lipid panel: 07/2023 -Currently on Statin therapy: no ROS: 10 point ROS was reviewed and negative unless indicated in the HPI Past Medical History PAST MEDICAL HISTORY Diagnosis Date Acquired hypothyroidism 10/18/2013 Advance directive discussed with patient 11/14/2021 Discussed 10/2021 Arthritis of both knees 12/02/2021 Bilateral nonexudative age-related macular degeneration 03/31/2021 Dr. Mahan Chronic pain of right knee 11/14/2021 Diabetic eye exam (HCC) 04/01/2021 Last done. 09/03/2021. [facility]. Every 4-6 months Encounter for Medicare annual wellness exam 05/05/2024 Last done: 05/05/2024 Essential hypertension, benign Fibroadenosis of breast Hyperlipidemia, mixed 08/08/[address] 11/14/2021 DPA: ? 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, [facility], BMI 35-39.9 08/15/2012 Other chronic pain 04/02/2021 Right knee pain 04/02/2021 Stage 3a chronic kidney disease (HCC) 08/05/2023 Type 2 diabetes mellitus with microalbuminuria, without long-term current use of insu (more content not included)...[facility]04-28-2025 History of Present illness Narrative* Dung Aaron MD - 10/16/2024 4:13 PM EDT [facility] Follow up visit History of present illness: This is a 79-year old female with past medical history significant for poorly controlled type 2 diabetes mellitus, complicated by nonproliferative diabetic retinopathy, diabetic nephropathy, hypertension, hyperlipidemia, congestive heart failure who is presenting for management of diabetes Last visit 02/2024 -Initially diagnosed: at the age of 58 years -Circumstances around diagnosis: on routine labs She was started on metformin 500 mg daily by her family doctor, Dr. Irvin She reported going to a course for diabetes/diabetes education class when she was first diagnosed with diabetes 20 years ago, where she was started about dietary modifications and exercise, with provision of meals at the same course, and distribution of booklets for helping diabetics. She reports following these for a couple of years when her blood sugar control was good. She was also exercising at that time at the [facility] for 3 times a week, which also helped her blood sugars. She reports she has not been doing any exercise due to closure of [facility] during . She also reports not following the diet anymore. She reported seeing [employer] [facility] [employer] few months ago- reports was not helpful and does not want to go back to [facility] or any nutrition counseling/diabetes education programs. She would like to follow what she learned about 20 years ago. She denied any history of surgical procedures on the pancreas, pancreatic cancer, pancreatitis or hospitalizations for DKA or HHS Denies any family history of diabetes mellitus, to the best of her knowledge She continues to report diarrhea, from glimepiride and not much effect after reducing the dose by half on last visit. She claims diarrhea is not due to metformin, but rather due to glimepiride Interval history: 10/16/24: She reports she missed her 06/2024 appt due to being sick for a long time She was on amaryl 4 mg daily, but she admits today that I was right saying her loose stools were not due to this medication after she changed her diet. She went to [facility] gl[facility] 4 mg twice daily- and ran out of the medication for one month or more. 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 Irvin Obesity -- Yes Other -- No Diabetic education class: were completed as above Diabetes Medications: -Current regimen: metformin 1000 mg BID, amaryl 4 mg twice daily, Janvuia 100 mg daily -Misses doses: None -Adverse medication effects: reports dizziness with Amaryl She has used Jardiance in the past, but was discontinued due to yeast infection . Blood sugars -Self monitoring of blood sugar via fingerstick: in the past. Has ran out and reports she was denied refills by the pharmacy. Has not been checking finger stick BG . Lifestyle -Exercise: no routine exercise -Diet: Eats all 3 meals, admits to not following a completely diabetic diet or low carb diet She reports eating a lot of carbs now . Blood pressure -Current antihypertensive therapy: Lisinopril 30 mg once daily, labetalol 100 mg 4 tablets 2 times a day, hydralazine 25 mg once daily, Lasix 20 mg once daily . Lipids -Last lipid panel: 07/2023 -Currently on Statin therapy: no ROS: 10 point ROS was reviewed and negative unless indicated in the HPI Past Medical History PAST MEDICAL HISTORY Diagnosis Date Acquired hypothyroidism 10/18/2013 Advance directive discussed with patient 11/14/2021 Discussed 10/2021 Arthritis of both knees 12/02/2021 Bilateral nonexudative age-related macular degeneration 03/31/2021 Dr. Mahan Chronic pain of right knee 11/14/2021 Diabetic eye exam (HCC) 04/01/2021 Last done. 09/03/2021. [facility]. Every 4-6 months Encounter for Medicare annual wellness exam 05/05/2024 Last done: 05/05/2024 Essential hypertension, benign Fibroadenosis of breast Hyperlipidemia, mixed 08/08/[address] 11/14/2021 DPA: ? 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 Mahan- [facility] Obesity, Class II, BMI 35-39.9 08/15/2012 Other chronic pain 04/02/2021 Right knee pain 04/02/2021 Stage 3a chronic kidney disease ([facility]) 08/05/2023 Type 2 diabetes mellitus with microalbuminuria, without long-term current use of insulin ([facility]) 04/15/2016 Type 2 diabetes mellitus with stage 3a chronic kidney disease, without long-term current use of insulin ([facility]) 09/03/2023 Vitamin D deficiency 10/19/2013 Past Surgical History PAST SURGICAL HISTORY Procedure Laterality Date STEREOTACTIC CORE BIOPSY 07/05/08 Family History FAMILY HISTORY Problem Relation Age of Onset Arthritis Mother Heart Father Heart Maternal Uncle Hypertension Sister Hypertension Brother Social History Social History Tobacco Use Smoking status: Never Smokeless tobacco: Never Substance Use Topics Alcohol use: No Drug use: No Allergies ALLERGIES Allergen Reactions Penicillins Rash Sulfa (Sulfonamide * Rash Hctz [Hydrochloroth* Unknown Jardiance [Empaglif* Itching vaginally Norvasc [Amlodipine* Other: See Comments Thinning of the hair Current Medications Current Outpatient Medications Medication Sig Dispense Refill labetalol (TRANDATE) 100 mg tablet Take 4 tablets by mouth two times a day. 240 tablet 5 lisinopril (ZESTRIL) 30 mg tablet Take 1 tablet by mouth two times a day. 60 tablet 5 SITagliptin phosphate (JANUVIA) 100 mg tablet Take 1 tablet by mouth once daily. 90 tablet 0 furosemide (LASIX) 20 mg tablet Take 1 tablet by mouth once daily. 30 tablet 5 glimepiride (AMARYL) 4 mg tablet Take 1 tablet by mouth once daily. 90 tablet 1 hydrALAZINE (APRESOLINE) 25 mg tablet Take 1 tablet by mouth four times daily. 360 tablet 1 levothyroxine (SYNTHROID) 75 mcg tablet Take 1 tablet by mouth once daily. Mon- Wed and two on Wednesday Take on empty stomach. For Thyroid 34 tablet 5 metFORMIN (GLUCOPHAGE) 1,000 mg tablet Take 1 tablet by mouth two times a day with meals. 180 tablet 1 Blood-Glucose Meter (TRUE METRIX GLUCOSE METER) monitoring kit 1 Each once daily as needed. 1 Kit 0 blood sugar diagnostic (TRUE METRIX GLUCOSE TEST STRIP) test strip 1 Strip once daily. Use with blood glucose test 1 time a day. Insulin Dep? No 90 Strip 1 Lancets Test blood sugar(s) 1 times daily. Dx: E11.22 Insulin: No 100 Each 11 blood sugar diagnostic test strip Use with blood glucose test one to three times daily 200 Each 1 Cholecalciferol, Vitamin D3, 1,000 unit cap Take 1 capsule by mouth once daily. 30 capsule 11 Blood-Glucose Meter, Drum-type (ACCU-CHEK COMPACT PLUS CARE) kit Dx.250.04 checks sugars once daily. No insulin 1 Kit 0 No current facility-administered medications for this visit. Vitals: 10/16/24 1624 BP Site: Right Arm BP Position: Sitting BP Cuff Size: Regular Adult Pulse: 67 Temp: 36.5 C (97.7 F) TempSrc: Temporal Artery SpO2: 94% Weight: 75.2 kg (165 lb 12.8 oz) Physical Exam GENERAL: Well nourished, obese, well hydrated, in no distress and oriented x 3, walking with a cane EYES: no thyroid eye signs, EOMI NECK: , no tenderness and adenopathy THYROID: Non-tender to palpable, no evidence of goiter, no nodules palpable LUNGS: Unlabored on room air HEART: regular rate and rhythm GI: abdomen is soft, nontender EXTREMITIES: no edema NEURO: normal strength, no tremor, monofilament testing done with normal sensations OTHER: Acanthosis None Labs: Latest Ref Rng 05/04/2024 Protein, Total 6.3 - 8.0 g/dL 6.9 Albumin 3.9 - 4.9 g/dL 4.2 Calcium 8.5 - 10.2 mg/dL 9.3 Bilirubin, Total 0.2 - 1.3 mg/dL 0.3 Alkaline Phosphatase 34 - 123 U/L 51 AST 13 - 35 U/L 19 ALT 7 - 38 U/L 14 Glucose 74 - 99 mg/dL 253 (H) BUN 7 - 21 mg/dL 18 Creatinine 0.58 - 0.96 mg/dL 1.17 (H) Sodium 136 - 144 mmol/L 134 (L) Potassium 3.7 - 5.1 mmol/L 4.1 Chloride 98 - 107 mmol/L 94 (L) CO2 22 - 30 mmol/L 26 Anion Gap 8 - 15 mmol/L 14 eGFR >=60 mL/min/1.73m 47 (L) Total Cholesterol, Nonfasting <200 mg/dL 189 Triglycerides, Nonfasting <150 mg/dL 255 (H) HDL Cholesterol, Nonfasting >39 mg/dL 45 LDL Cholesterol Calculated, Nonfasting <100 mg/dL 93 Non HDL Cholesterol, Nonfasting <130 mg/dL 144 (H) VLDL Cholesterol, Nonfasting <30 mg/dL 51 (H) Total Chol/HDL Ratio, Nonfasting <5.10 mg/dL 4.20 LDL/HDL Ratio, Nonfasting <2.54 mg/dL 2.07 Creatinine, Ur Random (UCRR) 20.0 - 300.0 mg/dL 41.1 Albumin, Urine Random mg/L 53.1 Albumin/Creat Ratio <30 mg/g 129 (H) Hemoglobin A1C 4.3 - 5.6 % 10.4 (H) Estimated Average Glucose mg/dL 252 TSH 0.270 - 4.200 mIU/L 2.700 Vitamin D 25 Hydroxy 31.0 - 80.0 ng/mL 40.0 Legend: (H) High (L) Low Latest Ref Rng 02/15/2020 05/15/2020 03/27/2021 11/11/2021 05/01/2022 08/21/2022 08/02/2023 12/16/2023 05/04/2024 Hemoglobin A1C 4.3 - 5.6 % 9.7 (H) 8.1 (H) 9.2 (H) 9.9 (H) 9.9 (H) 10.2 (H) 10.6 (H) 8.7 (H) 10.4 (H) Estimated Average Glucose mg/dL 232 186 217 237 237 246 258 203 252 Legend: (H) High Hba1c POC today is 12.1% Assessment and Plan 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 Then restarted medications but ran out. She has not been taking glimepiride for more thanone month -eGFR 47 in 04/2024 -Current regimen: Metformin 1000 mg twice daily, Januvia 100 mg daily. She was supposed to be on glimepiride 4 mg daily as per last visit note, but she has discontinued this due to concerns of loose stool. Then started when she realized her diet was the issue, and not amaryl. She restarted at 4 mg twice daily then ran out 1 month ago Plan: - she does not like using insulin or GLP-1 As due to injections - She has used Jardiance in the past with yeast infection and reports higher propensity to have yeast infections -I do not prefer insulin for her due to age, and she does not prefer taking any injectables either,including GLP-1 Agonists - continue medications at metformin 1000 mg BID, Januvia 100 mg daily, amaryl 4 mg BID. Refills given - I also discussed lowering metformin dose if renal function worsens on blood work. CMP ordered -Check blood sugar atleast 2 to 3 time daily, before meals. Test strips refilled -Lifestyle modifications (diet, exercise) have been discussed with the patient. - we discussed about profound diet and lifestyle modifications to control BG as we have less options for diabetes in her case - she again declined diabetes education #Blood Pressure -Currently antihypertensive regimen: Lisinopril 30 mg once daily, hydralazine 25 mg once daily, labetalol 100 mg 4 times daily - On ACEi appropriately, PCP managing #Dyslipidemia -Last lipid panel showing LDL cholesterol at 108 mg/dL, triglycerides elevated to 225 mg/dL, total cholesterol at 195 mg/dL -Currently not on statin therapy - discussed about starting a cholesterol lowering medication on last visit, patient declines and would like to concentrate on her diet and exercise first - discussed diet and exercise #Obesity Class II with serious comobidity -Diet and exercise discussed as above RTC in 3 months Medical Decision Making: Problems: High: Chronic illness with severe change Data: Unique test result(s) reviewed: 3+ Unique test(s) ordered: 2 Risk: Moderate: Drug management Medical Decision Making Level: 4 - Moderate Dung Aaron MD Endocrinology Associate Staff [facility] Endocrinology and Metabolism [place] [phone] documented in this encounterCleveland [facility]04-21-2025 Telephone encounter Note * Telephone Encounter - Micky Pendleton MD - 10/09/2024 5:23 PM EDT The following approved medication requests have been transmitted electronically. Requested Prescriptions Signed Prescriptions Disp Refills labetalol (TRANDATE) 100 mg tablet 240 tablet 5 Sig: Take 4 tablets by mouth two times a day. Authorizing Provider: MICKY PENDLETON MD [facility]04-21-2025 Miscellaneous Notes* Telephone Encounter - Micky Pendleton MD - 10/09/2024 5:23 PM EDT The following approved medication requests have been transmitted electronically. Requested Prescriptions Signed Prescriptions Disp Refills labetalol (TRANDATE) 100 mg tablet 240 tablet 5 Sig: Take 4 tablets by mouth two times a day. Authorizing Provider: MICKY PENDLETON MD * Telephone Encounter - Tiff Reno MA - 10/09/2024 4:32 PM EDT Prescription Refill Information The patient has been identified by name and date of : Yes Caregiver verified no other encounters exist for this prescription request: Yes Caregiver confirmed with patient/requestor that no other refills are due, in the near future, with this provider at this time: Yes The last office visit in the department: 04/2024 Does the patient have a future office visit with this provider/department: Yes Requested Prescriptions Pending Prescriptions Disp Refills labetalol (TRANDATE) 100 mg tablet 240 tablet 5 Sig: Take 4 tablets by mouth two times a day. Tiff Reno MA October 09, 2024 4:32 PM * Telephone Encounter - Amasa Sarah Hoffman - 10/09/2024 3:28 PM EDT Prescription Refill Information The patient has been identified by name and date of : Yes Caregiver verified no other encounters exist for this prescription request: Yes Caregiver confirmed with patient/requestor that no other refills are due, in the near future, with this provider at this time: Yes The last office visit in the department: 05/05/2024 Does the patient have a future office visit with this provider/department: Yes Requested Prescriptions Pending Prescriptions Disp Refills labetalol (TRANDATE) 100 mg tablet 240 tablet 5 Sig: Take 4 tablets by mouth two times a day. Sarah Hoffman October 09, 2024 3:28 PM documented in this encounterCleveland Clinic Foundation04-21-2025 Telephone encounter Note * Telephone Encounter - Tiff Reno MA - 10/09/2024 4:32 PM EDT Prescription Refill Information The patient has been identified by name and date of : Yes Caregiver verified no other encounters exist for this prescription request: Yes Caregiver confirmed with patient/requestor that no other refills are due, in the near future, with this provider at this time: Yes The last office visit in the department: 04/2024 Does the patient have a future office visit with this provider/department: Yes Requested Prescriptions Pending Prescriptions Disp Refills labetalol (TRANDATE) 100 mg tablet 240 tablet 5 Sig: Take 4 tablets by mouth two times a day. Tiff Reno MA October 09, 2024 4:32 PM [facility]04-21-2025 Telephone encounter Note* Telephone Encounter - Amasa Sarah Hoffman - 10/09/2024 3:28 PM EDT Prescription Refill Information The patient has been identified by name and date of : Yes Caregiver verified no other encounters exist for this prescription request: Yes Caregiver confirmed with patient/requestor that no other refills are due, in the near future, with this provider at this time: Yes The last office visit in the department: 05/05/2024 Does the patient have a future office visit with this provider/department: Yes Requested Prescriptions Pending Prescriptions Disp Refills labetalol (TRANDATE) 100 mg tablet 240 tablet 5 Sig: Take 4 tablets by mouth two times a day. Sarah Hoffman October 09, 2024 3:28 PM [facility]04-14-2025 Telephone encounter Note* Telephone Encounter - Micky Pendleton MD - 10/02/2024 5:26 PM EDT The following approved medication requests have been transmitted electronically. Requested Prescriptions Signed Prescriptions Disp Refills lisinopril (ZESTRIL) 30 mg tablet 60 tablet 5 Sig: Take 1 tablet by mouth two times a day. Authorizing Provider: MICKY PENDLETON MD [facility]04-14-2025 Miscellaneous Notes* Telephone Encounter - Micky Pendleton MD - 10/02/2024 5:26 PM EDT The following approved medication requests have been transmitted electronically. Requested Prescriptions Signed Prescriptions Disp Refills lisinopril (ZESTRIL) 30 mg tablet 60 tablet 5 Sig: Take 1 tablet by mouth two times a day. Authorizing Provider: MICKY PENDLETON MD * Telephone Encounter - Sarah Rice - 10/02/2024 3:22 PM EDT Prescription Refill Information The patient has been identified by name and date of : Yes Caregiver verified no other encounters exist for this prescription request: Yes Caregiver confirmed with patient/requestor that no other refills are due, in the near future, with this provider at this time: Yes The last office visit in the department: 05/05/24 Does the patient have a future office visit with this provider/department: Yes Requested Prescriptions Pending Prescriptions Disp Refills lisinopril (ZESTRIL) 30 mg tablet 60 tablet 5 Sig: Take 1 tablet by mouth two times a day. Sarah Ramirez [facility] October 02, 2024 3:23 PM documented in this encounterCleveland Clinic Foundation04-14-2025 Telephone encounter Note * Telephone Encounter - Sarah Rice - 10/02/2024 3:22 PM EDT Prescription Refill Information The patient has been identified by name and date of : Yes Caregiver verified no other encounters exist for this prescription request: Yes Caregiver confirmed with patient/requestor that no other refills are due, in the near future, with this provider at this time: Yes The last office visit in the department: 05/05/24 Does the patient have a future office visit with this provider/department: Yes Requested Prescriptions Pending Prescriptions Disp Refills lisinopril (ZESTRIL) 30 mg tablet 60 tablet 5 Sig: Take 1 tablet by mouth two times a day. Sarah Ramirez [facility] October 02, 2024 3:23 PM [facility]04-03-2025 Telephone encounter Note* Telephone Encounter - Mariana Tate MA - 2024 7:59 AM EDT This was taken care of in another encounter. Mariana Tate MA [facility]04-03-2025 Miscellaneous Notes* Telephone Encounter - Mariana Tate MA - 2024 7:59 AM EDT This was taken care of in another encounter. Mariana Tate MA * Telephone Encounter - Mariana Bustamante - 09/20/2024 3:58 PM EDT Patient has been taking 2 tablets of glimepiride instead of the once a day. She states she had loose bowels and was placed on 1 a day and her symptoms did not improve. She realized at the time that it was the increase in raw vegetables that was creating the loose BM, so on her own she restarted the glimepiride twice a day. She has now been out of the medication for the week and is requesting it be sent to [facility] in [place] for the original 2 pills daily. Please contact [facility] when it has been handled. [phone] documented in this encounterCleveland Clinic Foundation04-02-2025 Telephone encounter Note * Telephone Encounter - Mariana Bustamante - 09/20/2024 3:58 PM EDT Patient has been taking 2 tablets of glimepiride instead of the once a day. She states she had loose bowels and was placed on 1 a day and her symptoms did not improve. She realized at the time that it was the increase in raw vegetables that was creating the loose BM, so on her own she restarted the glimepiride twice a day. She has now been out of the medication for the week and is requesting it be sent to [facility] in [place] for the original 2 pills daily. Please contact [facility] when it has been handled. [phone] [facility] Work Phone: [phone] Telephone encounter Note* Telephone Encounter - Leatha Fleming LPN - 09/20/2024 3:54 PM EDT Patient calling in again requesting this medication. Patient states she does not have any medication to take today. Did let patient know in the future to call when she is getting low but not out of medication so the request can be addressed in time before medication runs out. Leatha Fleming LPN [place] 19662-02-2025 Miscellaneous Notes* Telephone Encounter - Leatha Fleming LPN - 09/20/2024 3:54 PM EDT Patient calling in again requesting this medication. Patient states she does not have any medication to take today. Did let patient know in the future to call when she is getting low but not out of medication so the request can be addressed in time before medication runs out. Leatha Fleming LPN * Telephone Encounter - Mariana Tate MA - 09/18/2024 3:27 PM EDT Images from the original note were not included. Most recent Endocrinology visit: Last encounter Visit on 03/13/2024 (with Dung Aaron) 09/06/2023 in [facility] with DUNG AARON for Type 2 diabetes mellitus with microalbuminuria, without long-term current use of insulin ([facility]) 12/10/2023 in [facility] with DUNG AARON for Type 2 diabetes mellitus with microalbuminuria, without long-term current use of insulin ([facility]) 03/13/2024 in [facility] with DUNG AARON for Upcoming Endocrinology Appointments - Next 365 Days Visit Type Date Time Department EST JACQUIE PATIENT 10/16/2024 4:20 PM [facility] Requested Prescriptions Pending Prescriptions Disp Refills SITagliptin phosphate (JANUVIA) 100 mg tablet 90 tablet 0 Sig: Take 1 tablet by mouth once daily. Latest Ref Rng & Units 05/04/2024 03/13/2024 12/16/2023 Hemoglobin A1C Hemoglobin A1C 4.3 - 5.6 % 10.4 8.7 Hemoglobin A1C (POCT) 4.3 - 5.6 % 9.6 Latest Ref Rng & Units 05/04/2024 08/02/2023 08/21/2022 TSH TSH 0.270 - 4.200 mIU/L 2.700 3.730 3.210 Free T3: None on file in the last 12 months Free T4: None on file in the last 12 months Thyroglobulin: None on file in the last 12 months Latest Ref Rng & Units 05/04/2024 08/02/2023 11/11/2021 Vitamin D Vitamin D 25 Hydroxy 31.0 - 80.0 ng/mL 40.0 37.3 45.4 Latest Ref Rng & Units 05/04/2024 08/02/2023 03/27/2021 Hematocrit Hematocrit 36.0 - 46.0 % 37.7 38.1 37.9 Latest Ref Rng & Units 05/04/2024 08/31/2023 08/02/2023 Creatinine Creatinine 0.58 - 0.96 mg/dL 1.17 1.12 1.18 Latest Ref Rng & Units 05/04/2024 08/31/2023 08/02/2023 eGFR EGFR >=60 mL/min/1.73m 47 50 47 Latest Ref Rng & Units 05/04/2024 08/31/2023 08/02/2023 Potassium Potassium 3.7 - 5.1 mmol/L 4.1 4.2 4.1 Testosterone: None on file in the last 12 months IGF: None on file in the last 12 months Prolactin: None on file in the last 12 months Mariana Tate MA documented in this encounterCleveland Clinic Foundation03-31-2025 Telephone encounter Note * Telephone Encounter - Mariana Tate MA - 09/18/2024 3:27 PM EDT Images from the original note were not included. Most recent Endocrinology visit: Last encounter Visit on 03/13/2024 (with Dung Aaron) 09/06/2023 in [facility] with DUNG AARON for Type 2 diabetes mellitus with microalbuminuria, without long-term current use of insulin ([facility]) 12/10/2023 in [facility] with DUNG AARON for Type 2 diabetes mellitus with microalbuminuria, without long-term current use of insulin ([facility]) 03/13/2024 in [facility] with ELADIODUNG MCGILL for Upcoming Endocrinology Appointments - Next 365 Days Visit Type Date Time Department EST JACQUIE PATIENT 10/16/2024 4:20 PM [facility] Requested Prescriptions Pending Prescriptions Disp Refills SITagliptin phosphate (JANUVIA) 100 mg tablet 90 tablet 0 Sig: Take 1 tablet by mouth once daily. Latest Ref Rng & Units 05/04/2024 03/13/2024 12/16/2023 Hemoglobin A1C Hemoglobin A1C 4.3 - 5.6 % 10.4 8.7 Hemoglobin A1C (POCT) 4.3 - 5.6 % 9.6 Latest Ref Rng & Units 05/04/2024 08/02/2023 08/21/2022 TSH TSH 0.270 - 4.200 mIU/L 2.700 3.730 3.210 Free T3: None on file in the last 12 months Free T4: None on file in the last 12 months Thyroglobulin: None on file in the last 12 months Latest Ref Rng & Units 05/04/2024 08/02/2023 11/11/2021 Vitamin D Vitamin D 25 Hydroxy 31.0 - 80.0 ng/mL 40.0 37.3 45.4 Latest Ref Rng & Units 05/04/2024 08/02/2023 03/27/2021 Hematocrit Hematocrit 36.0 - 46.0 % 37.7 38.1 37.9 Latest Ref Rng & Units 05/04/2024 08/31/2023 08/02/2023 Creatinine Creatinine 0.58 - 0.96 mg/dL 1.17 1.12 1.18 Latest Ref Rng & Units 05/04/2024 08/31/2023 08/02/2023 eGFR EGFR >=60 mL/min/1.73m 47 50 47 Latest Ref Rng & Units 05/04/2024 08/31/2023 08/02/2023 Potassium Potassium 3.7 - 5.1 mmol/L 4.1 4.2 4.1 Testosterone: None on file in the last 12 months IGF: None on file in the last 12 months Prolactin: None on file in the last 12 months Mariana Tate MA [facility]02-11-2025 Telephone encounter Note* Telephone Encounter - Hope Ortiz - 08/01/2024 2:04 PM EST Prescription Refill Information The patient has been identified by name and date of : Yes Caregiver verified no other encounters exist for this prescription request: Yes Caregiver confirmed with patient/requestor that no other refills are due, in the near future, with this provider at this time: Yes The last office visit in the department: 05/05/24 Does the patient have a future office visit with this provider/department: Yes 11/08/24 Requested Prescriptions Pending Prescriptions Disp Refills furosemide (LASIX) 20 mg tablet 30 tablet 5 Sig: Take 1 tablet by mouth once daily. Hope Ortiz August 01, 2024 2:04 PM [facility]02-11-2025 Miscellaneous Notes* Telephone Encounter - Hope Ortiz - 08/01/2024 2:04 PM EST Prescription Refill Information The patient has been identified by name and date of : Yes Caregiver verified no other encounters exist for this prescription request: Yes Caregiver confirmed with patient/requestor that no other refills are due, in the near future, with this provider at this time: Yes The last office visit in the department: 05/05/24 Does the patient have a future office visit with this provider/department: Yes 11/08/24 Requested Prescriptions Pending Prescriptions Disp Refills furosemide (LASIX) 20 mg tablet 30 tablet 5 Sig: Take 1 tablet by mouth once daily. Hope Ortiz August 01, 2024 2:04 PM documented in this encounterCleveland Clinic Foundation02-03-2025 Telephone encounter Note * Telephone Encounter - Micky Pendleton MD - 07/24/2024 8:14 PM EST Patient's diabetes is being managed by Endo. Will forward to correct provider. [facility]02-03-2025 Miscellaneous Notes* Telephone Encounter - Micky Pendleton MD - 07/24/2024 8:14 PM EST Patient's diabetes is being managed by Endo. Will forward to correct provider. * Telephone Encounter - Laila Infante - 07/24/2024 4:12 PM EST Patient has been identified by name and date of : Yes Patient phones for refill(s): Requested Prescriptions Pending Prescriptions Disp Refills glimepiride (AMARYL) 4 mg tablet 180 tablet 1 Sig: Take 1 tablet by mouth two times a day with meals. Date of last office visit in primary care: 05/05/2024 Date of next office visit in primary care: 11/08/2024 Please advise. Thank you. Laila Infante. documented in this encounterCleveland Clinic Foundation02-03-2025 Telephone encounter Note * Telephone Encounter - Laila Infante - 07/24/2024 4:12 PM EST Patient has been identified by name and date of : Yes Patient phones for refill(s): Requested Prescriptions Pending Prescriptions Disp Refills glimepiride (AMARYL) 4 mg tablet 180 tablet 1 Sig: Take 1 tablet by mouth two times a day with meals. Date of last office visit in primary care: 05/05/2024 Date of next office visit in primary care: 11/08/2024 Please advise. Thank you. Laila Infante. [facility]01-23-2025 Miscellaneous Notes* Telephone Encounter - Mariana Bustamante - 07/13/2024 1:26 PM EST Prescription Refill Information The patient has been identified by name and date of : Yes Caregiver verified no other encounters exist for this prescription request: Yes Caregiver confirmed with patient/requestor that no other refills are due, in the near future, with this provider at this time: Yes The last office visit in the department: 05-05-24 Does the patient have a future office visit with this provider/department: Yes Requested Prescriptions Pending Prescriptions Disp Refills hydrALAZINE (APRESOLINE) 25 mg tablet 360 tablet 1 Sig: Take 1 tablet by mouth four times daily. Mariana Hoffman July 13, 2024 1:26 PM documented in this encounterCleveland Clinic Foundation01-23-2025 Telephone encounter Note * Telephone Encounter - Mariana Bustamante - 07/13/2024 1:26 PM EST Prescription Refill Information The patient has been identified by name and date of : Yes Caregiver verified no other encounters exist for this prescription request: Yes Caregiver confirmed with patient/requestor that no other refills are due, in the near future, with this provider at this time: Yes The last office visit in the department: 05-05-24 Does the patient have a future office visit with this provider/department: Yes Requested Prescriptions Pending Prescriptions Disp Refills hydrALAZINE (APRESOLINE) 25 mg tablet 360 tablet 1 Sig: Take 1 tablet by mouth four times daily. Mariana Hoffman July 13, 2024 1:26 PM [facility] Work Phone: [phone]) 754-229212-23-2024 Telephone encounter Note* Telephone Encounter - Bessy Driscoll MA - 06/12/2024 2:51 PM EST Prescription Refill Information The patient has been identified by name and date of : Yes Caregiver verified no other encounters exist for this prescription request: Yes Caregiver confirmed with patient/requestor that no other refills are due, in the near future, with this provider at this time: Yes The last office visit in the department: 03/13/24 Does the patient have a future office visit with this provider/department: Yes Requested Prescriptions Pending Prescriptions Disp Refills SITagliptin phosphate (JANUVIA) 100 mg tablet 90 tablet 0 Sig: Take 1 tablet by mouth once daily. Bessy Driscoll MA June 12, 2024 2:52 PM [facility]12-23-2024 Miscellaneous Notes* Telephone Encounter - Bessy Driscoll MA - 06/12/2024 2:51 PM EST Prescription Refill Information The patient has been identified by name and date of : Yes Caregiver verified no other encounters exist for this prescription request: Yes Caregiver confirmed with patient/requestor that no other refills are due, in the near future, with this provider at this time: Yes The last office visit in the department: 03/13/24 Does the patient have a future office visit with this provider/department: Yes Requested Prescriptions Pending Prescriptions Disp Refills SITagliptin phosphate (JANUVIA) 100 mg tablet 90 tablet 0 Sig: Take 1 tablet by mouth once daily. Bessy Driscoll MA June 12, 2024 2:52 PM documented in this encounterCleveland Clinic Foundation11-20-2024 Telephone encounter Note * Telephone Encounter - Prisca Do RN - 05/10/2024 9:06 AM EST Patient calls and notified of below. Patient would like to see Dr. Pendleton. Patient scheduled on 11/09/[address] Pendleton. Prisca Do RN [facility]11-20-2024 Miscellaneous Notes* Telephone Encounter - Prisca Do RN - 05/10/2024 9:06 AM EST Patient calls and notified of below. Patient would like to see Dr. Pendleton. Patient scheduled on 11/09/[address] Pendleton. Prisca Do RN * Telephone Encounter - Debbie Bullard LPN - 05/10/2024 8:42 AM EST Left a message for pt to call the office and ask to speak to a nurse. Debbie Bullard LPN * Telephone Encounter - Micky Pendleton MD - 05/09/2024 8:11 PM EST Please help patient set up her routine f/u in October 2024 with Deisi. The following approved medication requests have been transmitted electronically. Requested Prescriptions Signed Prescriptions Disp Refills levothyroxine (SYNTHROID) 75 mcg tablet 34 tablet 5 Sig: Take 1 tablet by mouth once daily. Wed-Wed and two on Wednesday Take on empty stomach. For Thyroid Authorizing Provider: MICKY PENDLETON MD * Telephone Encounter - Debbie Bullard LPN - 05/09/2024 4:37 PM EST Pt out of medication. Debbie Bullard LPN * Telephone Encounter - Amasa Sarah Hoffman - 05/09/2024 4:34 PM EST Prescription Refill Information The patient has been identified by name and date of : Yes Caregiver verified no other encounters exist for this prescription request: Yes Caregiver confirmed with patient/requestor that no other refills are due, in the near future, with this provider at this time: Yes The last office visit in the department: 05/05/24 Does the patient have a future office visit with this provider/department: No Requested Prescriptions Pending Prescriptions Disp Refills levothyroxine (SYNTHROID) 75 mcg tablet 34 tablet 5 Sig: Take 1 tablet by mouth once daily. Mon-Sat and two on Wednesday Take on empty stomach. For Thyroid Patient stated she is out of medication, please send today. Sarah Hoffman May 09, 2024 4:34 PM [facility] Telephone encounter Note * Telephone Encounter - Debbie Bullard LPN - 05/10/2024 8:42 AM EST Left a message for pt to call the office and ask to speak to a nurse. Debbie Bullard LPN [facility]11-19-[facility] Telephone encounter Note* Telephone Encounter - Micky Pendleton MD - 05/09/2024 8:11 PM EST Please help patient set up her routine f/u in October 2024 with Deisi. The following approved medication requests have been transmitted electronically. Requested Prescriptions Signed Prescriptions Disp Refills levothyroxine (SYNTHROID) 75 mcg tablet 34 tablet 5 Sig: Take 1 tablet by mouth once daily. Mon-Sat and two on Wednesday Take on empty stomach. For Thyroid Authorizing Provider: MICKY PENDLETON MD [facility]11-19-[facility]24 Telephone encounter Note* Telephone Encounter - Debbie Bullard LPN - 05/09/2024 4:37 PM EST Pt out of medication. Debbie Bullard LPN [facility]24 Telephone encounter Note* Telephone Encounter - Sarah Rice - 05/09/2024 4:34 PM EST Prescription Refill Information The patient has been identified by name and date of : Yes Caregiver verified no other encounters exist for this prescription request: Yes Caregiver confirmed with patient/requestor that no other refills are due, in the near future, with this provider at this time: Yes The last office visit in the department: 05/05/24 Does the patient have a future office visit with this provider/department: No Requested Prescriptions Pending Prescriptions Disp Refills levothyroxine (SYNTHROID) 75 mcg tablet 34 tablet 5 Sig: Take 1 tablet by mouth once daily. Mon-Sat and two on Wednesday Take on empty stomach. For Thyroid Patient stated she is out of medication, please send today. Sarah Hoffman May 09, 2024 4:34 PM [facility]24 Evaluation note* Diagnosis Encounter for Medicare annual wellness exam- Primary Routine general medical examination at a health care facility Type 2 diabetes mellitus with stage 3a chronic kidney disease, without long-term current use of insulin (HCC) Type 2 diabetes mellitus with microalbuminuria, without long-term current use of insulin (HCC) Diabetic eye exam (HCC) Type II or unspecified type diabetes mellitus without mention of complication, not stated as uncontrolled Essential hypertension, benign Hyperlipidemia, mixed Mixed hyperlipidemia Acquired hypothyroidism Unspecified hypothyroidism Stage 3a chronic kidney disease (HCC) 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 Screening schedule The following prevention plan is recommended: Depression Screening Never done Anxiety Screening Never done BP Controlled (<130/80) due on 01/07/2020 Influenza Vaccine(1) due on 02/20/2024 Covid-19 Vaccine( season) due on 02/20/2024 WHAT YOU CAN DO TO PREVENT FALLS Many falls can be prevented. By making some changes, you can lower your chances of falling. Four things YOU can do to prevent falls for you* and your caregiver 1. Begin a regular exercise program Exercise is one of the most important ways to lower your chances of falling. It makes you stronger and helps you feel better. Exercises that improve balance and coordination (like Omid Chi) are the most helpful. Lack of exercise leads to weakness and increases your chances of falling. Ask your doctor or health care provider about the best type of exercise program for you. 2. Have your health care provider review your medicines Have your doctor or pharmacist review all the medicines you take, even [id number] medicines. As you get older, the way medicines work in your body can change. Some medicines, or combinations of medicines, can make you sleepy or dizzy andcan cause you to fall. 3. Have your vision checked Have your eyes checked by an eye doctor at least once a year. You may be wearing the wrong glasses or have a condition like glaucoma or cataracts that limits your vision. Poor vision can increase your chances of falling. 4. Make your home safer About half of all falls happen at home. To make your home safer: Remove things you can trip over (like papers, books, clothes, and shoes) from stairs and places where you walk. Remove small throw rugs or use double-sided tape to keep the rugs from slipping. Keep items you use often in cabinets you can reach easily without using a step stool. Have grab bars put in next to your toilet and in the tub or shower. Use non-slip mats in the bathtub and on shower floors. Improve the lighting in your home. As you get older, you need brighter lights to see well. Hang light-weight curtains or shades to reduce glare. Have handrails and lights put in on all staircases. Wear shoes both inside and outside the house. Avoid going barefoot or wearing slippers. For more information, contact: Centers for Disease Control and Prevention www.cdc.gov/injury * This information may not apply if you have certain medical conditions. documented in this encounterCleveland [id number] History of Present illness Narrative* Micky Pendleton MD - 05/05/2024 2:20 PM EST Images from the original note were not included. Chalino Arguelles is a 78 year old female here for a Medicare wellness visit. Medicare Health Risk Assessment General Health Very good Exercise: Minutes/Day 0 min Exercise: Days/Week 0 days Alcohol: Daily Use Never Alcohol: Drinks/Day Patient does not drink Alcohol: 6 or more drinks Never Feel off balance No (uses cane when going outside) Concerns: Teeth/Dentures No Concerns: Sexual function No Troubled by feelings None of the above Frequency: Eating healthy diet Nearly every day ADLs requiring help None of the above Safety precautions in home/vehicle No Smoke, vape, chews tobacco No Difficulty hearing No Difficulty seeing No Current Providers Specialists: I have reviewed specialist-related care of the patient in the medical record. Current care team: Patient Care Team: Micky Pendleton MD as PCP - General (Family Medicine) Deisi Calle PA-C (Family Medicine) Dr. Aaron: Endo Optho Medical/Family history review Reviewed and updated problem list, medical/surgical/family/social history, medications, and allergies. Opioid use review Opioid Medications (last 90 days) No data to display Anxiety/Depression screening PHQ-2 Score: 0 (Lower risk for depression) Recommendation: no further intervention at this time Cognitive screening Score: 5 Cognitive screening reviewed and No further action needed (score 3-5). Functional Observation Was the patient's Timed Up & Go test unsteady or >= 12 seconds? No Advance Care Planning Surrogate decision maker and/or advance care plan documented Measurements BP 136/84 Pulse 76 Resp 16 Ht 148.6 cm (4' 10.5") Wt 78 kg (172 lb) BMI 35.34 kg/m Vision Screening: Follows with optometry/ophthalmology Assessment/Plan Medicare annual wellness visit, subsequent (Z00.00) - Counseled on healthy diet and regular exercise - Fall avoidance information provided - Personalized prevention plan provided See Below Chief Complaint Patient presents with: Medicare Wellness Exam HPI Chalino Arguelles is a 78 year old female who presents here today for Medicare Annual Visit and extensive exam. Patient with hx of uncontrolled DM2, hyperlipidemia, HTN, hypothyroid, arthritis, obesity, vit D def and those as below. Patient has been doing ok. Seeing Endo for her diabetes. Past medical history, appointments, medications, allergies reviewed. Previous Medical History PAST MEDICAL HISTORY Diagnosis Date Acquired hypothyroidism 10/18/2013 Advance directive discussed with patient 11/14/2021 Discussed 10/2021 Arthritis of both knees 12/02/2021 Bilateral nonexudative age-related macular degeneration 03/31/2021 Dr. Mahan Chronic pain of right knee 11/14/2021 Diabetic eye exam ([facility]) 04/01/2021 Last done. 09/03/2021. [facility]. Every 4-6 months Encounter for Medicare annual wellness exam 05/05/2024 Last done: 05/05/2024 Essential hypertension, benign Essential hypertension, benign 11/29/2014: Home BP Cuff Validated. Home BP: 141/80 76 Office BP: 151/88 73 Fibroadenosis of breast Hyperlipidemia associated with type 2 diabetes mellitus ([facility]) ([facility]) 11/15/2014 Hyperlipidemia LDL goal < 100 08/08/2013 Hypothyroidism 10/18/[address] 11/14/2021 DPA: ? 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 Mahan- [facility] Obesity 08/15/2012 Obesity, Class II, BMI 35-39.9 08/15/2012 Other and unspecified hyperlipidemia Other chronic pain 04/02/2021 Right knee pain 04/02/2021 Stage 3a chronic kidney disease ([facility]) 08/05/2023 Type 2 diabetes mellitus with microalbuminuria, without long-term current use of insulin ([facility]) 04/15/2016 Type 2 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dney disease ([facility]) 07/31/2015 Type 2 diabetes mellitus with stage 3a chronic kidney disease, without long-term current use of insulin ([facility]) 09/03/2023 Type II or unspecified type diabetes mellitus without mention of complication, not stated as uncontrolled Uncontrolled type 2 DM with microalbuminuria or microproteinuria 09/28/2012 Vitamin D deficiency 10/19/2013 Previous Surgical History PAST SURGICAL HISTORY Procedure Laterality Date STEREOTACTIC CORE BIOPSY 07/05/08 Family History FAMILY HISTORY Problem Relation Age of Onset Arthritis Mother Heart Father Heart Maternal Uncle Hypertension Sister Hypertension Brother Patient Allergies ALLERGIES Allergen Reactions Penicillins Rash Sulfa (Sulfonamide * Rash Hctz [Hydrochloroth* Unknown Jardiance [Empaglif* Itching vaginally Norvasc [Amlodipine* Other: See Comments Thinning of the hair Current Medications Current Outpatient Medications on File Prior to Visit Medication Sig metFORMIN (GLUCOPHAGE) 1,000 mg tablet Take 1 tablet by mouth two times a day with meals. labetalol (TRANDATE) 100 mg tablet Take 4 tablets by mouth two times a day. lisinopril (ZESTRIL) 30 mg tablet Take 1 tablet by mouth two times a day. SITagliptin phosphate (JANUVIA) 100 mg tablet Take 1 tablet by mouth once daily. furosemide (LASIX) 20 mg tablet Take 1 tablet by mouth once daily. glimepiride (AMARYL) 4 mg tablet Take 1 tablet by mouth two times a day with meals. (Patient takingdifferently: Take 4 mg by mouth daily with breakfast.) Blood-Glucose Meter (TRUE METRIX GLUCOSE METER) monitoring kit 1 Each once daily as needed. blood sugar diagnostic (TRUE METRIX GLUCOSE TEST STRIP) test strip 1 Strip once daily. Use with blood glucose test 1 time a day. Insulin Dep? No Lancets Test blood sugar(s) 1 times daily. Dx: E11.22 Insulin: No blood sugar diagnostic test strip Use with blood glucose test one to three times daily levothyroxine (SYNTHROID) 75 mcg tablet Take 1 tablet by mouth once daily. Wed- Wed and two on Wednesday Take on empty stomach. For Thyroid hydrALAZINE (APRESOLINE) 25 mg tablet Take 1 tablet by mouth four times daily. Cholecalciferol, Vitamin D3, 1,000 unit cap Take 1 capsule by mouth once daily. Blood-Glucose Meter, Drum-type (ACCU-CHEK COMPACT PLUS CARE) kit Dx.250.04 checks sugars once daily. No insulin No current facility-administered medications on file prior to visit. Social History Social History Tobacco Use Smoking status: Never Smokeless tobacco: Never Substance Use Topics Alcohol use: No Drug use: No Review of Symptoms REVIEW OF SYSTEMS GENERAL: No weight loss, malaise or fevers HEENT: Negative for frequent or significant headaches, No changes in hearing or vision, no nose bleeds or other nasal problems NECK: Negative for lumps, goiter, pain and significant neck swelling RESPIRATORY: Negative for cough, hemoptysis, wheezing, COPD, dyspnea or shortness of breath CARDIOVASCULAR: Negative for chest pain, leg swelling, hypertension, CHF or palpitations GI: No nausea, vomiting, or significant diarrhea (based on fiber in diet) and No heartburn or reflux symptoms. No blood : No history of dysuria, frequency or blood MUSCULOSKELETAL: Negative for new or changes in her typical joint pain or swelling, back pain or muscle pain SKIN: Negative for lesions, rash, and itching PSYCH: Negative for sleep disturbance, mood disorder and recent psychosocial stressors HEMATOLOGY/LYMPHOLOGY: Negative for prolonged bleeding, bruising easily or swollen nodes ENDOCRINE: Negative for cold or heat intolerance, symptoms of low BS's NEURO: No history of headaches, syncope, paralysis, seizures or tremors EXAM: BP 136/84 Pulse 76 Resp 16 Ht 148.6 cm (4' 10.5") Wt 78 kg (172 lb) BMI 35.34 kg/m Last 5 Encounter Wt Readings: Date: Wt: 05/05/2024 78 kg (172 lb) 03/13/2024 78.6 kg (173 lb 3.2 oz) 12/10/2023 78.2 kg (172 lb 6.4 oz) 10/04/2023 78.5 kg (173 lb) 09/06/2023 79.1 kg (174 lb 6.4 oz) General Appearance: Well appearing, alert, in no acute distress, well-hydrated, well nourished. andObese. Skin: Skin color, texture, turgor normal, no suspicious rashes or lesions. Head: Normocephalic, no masses, lesions, tenderness or abnormalities. Eyes: Anicteric sclera. Pupils are equally round and reactive to light. Extraocular movements are intact. . Ears: External ears, TM's normal, canals clear. Nose/Sinuses: Nares normal, septum midline, mucosa normal, no drainage or sinus tenderness. Oropharynx: Lips, mucosa, and tongue normal, teeth and gums normal, oropharynx normal. Neck: Supple, no adenopathy; thyroid symmetric, normal size, no bruits. Lungs: Lungs clear to auscultation. No wheezing, rhonchi, rales.. Heart: RRR without murmur, gallop, or rubs. No ectopy. Abdomen: Normal abdominal exam, Abdomen soft, non-tender. Bowel sounds normal. No masses, organomegaly. Extremities: No deformities, edema, skin discoloration, Good capillary refill. . Musculoskeletal: Muscular strength intact, No joint swelling, deformity, or tenderness. Peripheral Pulses: Normal. Neurologic: Gait normal. Reflexes normal and symmetric. Sensation to light touch and crainal nerves2-12 intact.. Diabetic Foot Exam: Feet: Shoes and socks removed, no deformities, ulcers, calluses, sensitive to 10 gm microfilament, and vibratory exam within normal limits Skin: warm, dry, and no callouses or ulcer Vascular Pulses: Normal SEMM[place] MONOFILAMENT TESTING Left Foot Right Foot Dorsal Surface Intact Dorsal Surface Intact Plantar Surface Intact Plantar Surface Intact Health Maintenance List Depression Screening Never done Anxiety Screening Never done BP Controlled (<130/80) due on 01/07/2020 Influenza Vaccine(1) due on 02/20/2024 Covid-19 Vaccine( - season) due on 02/20/2024 DTaP,Tdap,Td Vaccine(1 - Tdap) due on 09/02/2024 RSV Vaccine(1 - 1-dose 75+ series) due on 09/02/2024 Shingrix Vaccine(1 of 2) due on 09/02/2024 HbA1C due on 08/04/2024 Diabetic Foot Exam due on 09/05/2024 Annual PCP Team Chronic Disease Visit due on 10/03/2024 Dilated Retinal Exam due on 12/05/2024 Urine Albumin:Creatinine Ratio due on 05/04/2025 LDL Cholesterol due on 05/04/2025 Serum Creatinine due on 05/04/2025 Hemoglobin/Hematocrit due on 05/04/2025 Bone Density Screening Completed Advance Directive Discussion Completed Pneumococcal Vaccine: 65+ Completed Colorectal Cancer Screening Discontinued Data reviewed Latest Ref Rng 08/02/2023 12/16/2023 05/04/2024 WBC 3.70 - 11.00 k/uL 10.50 6.82 RBC 3.90 - 5.20 m/uL 4.37 4.32 Hemoglobin 11.5 - 15.5 g/dL 12.5 12.3 Hematocrit 36.0 - 46.0 % 38.1 37.7 MCV 80.0 - 100.0 fL 87.2 87.3 MCH 26.0 - 34.0 pg 28.6 28.5 MCHC 30.5 - 36.0 g/dL 32.8 32.6 RDW-CV 11.5 - 15.0 % 12.3 12.3 Platelet Count 150 - 400 k/uL 266 241 MPV 9.0 - 12.7 fL 11.6 11.3 Neut% % 76.6 73.2 Abs Neut (ANC) 1.45 - 7.50 k/uL 8.05 (H) 4.98 Lymph% % 15.8 20.2 Abs Lymph 1.00 - 4.00 k/uL 1.66 1.38 [place]% % 5.4 5.1 Abs [place] <0.87 k/uL 0.57 0.35 Eosin% % 0.9 0.4 Abs Eosin <0.46 k/uL 0.09 0.03 Baso% % 0.8 0.7 Abs Baso <0.11 k/uL 0.08 0.05 Immature Gran % % 0.5 0.4 IMMATURE GRANS (ABS) <0.10 k/uL 0.05 0.03 NRBC /100 WBC 0.0 0.0 Absolute nRBC <0.01 k/uL <0.01 <0.01 DTYPE Auto Auto Color Yellow Yellow Yellow Clarity Clear Clear Clear Glucose, Urine Negative 1+ ! 2+ ! Bilirubin, Urine Negative Negative Negative Ketones, Urine Negative Negative Negative Specific [place], Ur 1.005 - 1.030 1.012 1.011 Hemoglobin/Blood,Ur Negative Negative Negative pH, Urine <8.5 6.0 6.0 Protein, Urine Negative Trace ! Negative Urobilinogen 0.2-1.0 EU/dL 0.2 EU/dL 0.2 EU/dL Nitrites Negative Negative Negative Leukest Negative Negative Negative WBC, Urine 0-5 /HPF 0-5 /HPF 0-5 /HPF RBC, Urine 0-2 /HPF 0-2 /HPF 0-2 /HPF Bacteria Negative /HPF Negative Negative Epithelial Cells /HPF None Seen None Seen Hyaline Cast 0 /LPF 1-3 /LPF ! 1-3 /LPF ! Protein, Total 6.3 - 8.0 g/dL 6.6 6.9 Albumin 3.9 - 4.9 g/dL 4.3 4.2 Calcium 8.5 - 10.2 mg/dL 9.7 9.3 Bilirubin, Total 0.2 - 1.3 mg/dL 0.4 0.3 Alkaline Phosphatase 34 - 123 U/L 62 51 AST 13 - 35 U/L 18 19 ALT 7 - 38 U/L 13 14 Glucose 74 - 99 mg/dL 348 (H) 253 (H) BUN 7 - 21 mg/dL 26 (H) 18 Creatinine 0.58 - 0.96 mg/dL 1.18 (H) 1.17 (H) Sodium 136 - 144 mmol/L 134 (L) 134 (L) Potassium 3.7 - 5.1 mmol/L 4.1 4.1 Chloride 98 - 107 mmol/L 92 (L) 94 (L) CO2 22 - 30 mmol/L 28 26 Anion Gap 8 - 15 mmol/L 14 14 eGFR >=60 mL/min/1.73m 47 (L) 47 (L) Total Cholesterol, Nonfasting <200 mg/dL 195 189 Triglycerides, Nonfasting <150 mg/dL 225 (H) 255 (H) HDL Cholesterol, Nonfasting >39 mg/dL 42 45 LDL Cholesterol, Nonfasting <100 mg/dL 108 (H) 93 Non HDL Cholesterol, Nonfasting <130 mg/dL 153 (H) 144 (H) VLDL Cholesterol, Nonfasting <30 mg/dL 45 (H) 51 (H) Total Chol/HDL Ratio, Nonfasting <5.10 mg/dL 4.64 4.20 LDL/HDL Ratio, Nonfasting <2.54 mg/dL 2.57 (H) 2.07 Creatinine, Ur Random (UCRR) 20.0 - 300.0 mg/dL 56.1 41.1 Albumin, Urine Random mg/L 82.1 53.1 Albumin/Creat Ratio <30 mg/g 146 (H) 129 (H) Hemoglobin A1C 4.3 - 5.6 % 10.6 (H) 8.7 (H) 10.4 (H) Estimated Average Glucose mg/dL 258 203 252 Vitamin D 25 Hydroxy 31.0 - 80.0 ng/mL 37.3 40.0 TSH 0.270 - 4.200 mIU/L 3.730 2.700 A/P ASSESSMENT/PLAN: 1. Encounter for Medicare annual wellness exam - ICD9: V70.0, ICD10: Z00.00 (primary diagnosis) - Counseled on healthy diet and regular exercise - Discussed need and benefit for weight loss. BMI 35.34 kg/(m^2) - Patient counseled on and acknowledged vaccine benefits/risks/side effects; VIS provided: Influenza - Follow up for annual exam in one year 2. Type 2 diabetes mellitus with stage 3a chronic kidney disease, without long- term current use of insulin (HCC) - ICD9: 250.40, 585.3, ICD10: E11.22, N18.31 - Uncontrolled - Continue current medications - Counseled on healthy diet and regular exercise - Discussed need for and benefit of weight loss. BMI 35.34 kg/(m^2) - cont management with Endo - eGFR: 47 Stable - Counseled on avoiding NSAIDs, adequate hydration - ACEi/ARB prescribed: Yes 3. Type 2 diabetes mellitus with microalbuminuria, without long-term current use of insulin (HCC) -ICD9: 250.40, 791.0, ICD10: E11.29, R80.9 - as per #2 4. Diabetic eye exam ([facility]) - ICD9: V72.0, 250.00, ICD10: Z01.00, E11.9 - up to date 5. Essential hypertension, benign - ICD9: 401.1, ICD10: I10 - Controlled - Continue current medications - Recommend home blood pressure monitoring, to bring results to next visit - Encouraged sodium restriction, DASH or Mediterranean diet - Recommend regular aerobic exercise - Discussed need for and benefit of weight loss. BMI 35.34 kg/(m^2) 6. Hyperlipidemia, mixed - ICD9: 272.2, ICD10: E78.2 - Controlled - Counseled on healthy diet and regular exercise - Discussed need for and benefit of weight loss. BMI 35.34 kg/(m^2) 7. Acquired hypothyroidism - ICD9: 244.9, ICD10: E03.9 - Instructed patient on importance of taking on an empty stomach either first thing in the morning or at bedtime. - continue current dose of Synthroid 8. Stage 3a chronic kidney disease (HCC) - ICD9: 585.3, ICD10: N18.31 - eGFR: 47 Stable - Counseled on avoiding NSAIDs, adequate hydration - ACEi/ARB prescribed: Yes 9. 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 Obesity, Class II, BMI 35-39.9 - ICD9: 278.00, ICD10: E66.812 - patient to continue work on weight loss. 11. Vitamin D deficiency - ICD9: 268.9, ICD10: E55.9 - cont replacement 12. Screening for depression - ICD9: V79.0, ICD10: Z13.31 - DEPRESSION SCREENING 13. Encounter for screening examination for other mental health and behavioral disorders - ICD9: V79.8, ICD10: Z13.39 - ANXIETY SCREENING 14. Encounter for immunization - ICD9: V03.89, ICD10: Z23 - INFLUENZA VACCINE, PRSV FREE, AGE 65+ YR, HIGH DOSE, TRIVALENT (FLUZONE HIGH- DOSE): given F/u 6 months routine. I spent a total of 40 minutes on the date of the service which included preparing to see the patient, [id number] patient care, completing clinical documentation, performing a medically appropriate examination, counseling and educating the patient/family/caregiver and ordering medications, tests, or procedures. Micky Pendleton MD documented in this encounterC[facility]11-15-2024 NoteHNO ID: [id number] Author: MICKY PENDLETON MD Service: ? Author Type: Physician Type: Progress Notes Filed: 05/06/2024 07:56 Note Text: Chalino Arguelles is a 78 year old female here for a Medicare wellness visit. Medicare Health Risk Assessment General Health Very good Exercise: Minutes/Day 0 min Exercise: Days/Week 0 days Alcohol: Daily Use Never Alcohol: Drinks/Day Patient does not drink Alcohol: 6 or more drinks Never Feel off balance No (uses cane when going outside) Concerns: Teeth/Dentures No Concerns: Sexual function No Troubled by feelings None of the above Frequency: Eating healthy diet Nearly every day ADLs requiring help None of the above Safety precautions in home/vehicle No Smoke, vape, chews tobacco No Difficulty hearing No Difficulty seeing No Current Providers Specialists: I have reviewed specialist-related care of the patient in the medical record. Current care team: Patient Care Team: Micky Pendleton MD as PCP - General (Family Medicine) Deisi Calle PA-C (Family Medicine) Dr. Aaron: Jeff Optho Medical/Family history review Reviewed and updated problem list, medical/surgical/family/social history, medications, and allergies. Opioid use review Opioid Medications (last 90 days) No data to display Anxiety/Depression screening PHQ-2 Score: 0 (Lower risk for depression) Recommendation: no further intervention at this time Cognitive screening Score: 5 Cognitive screening reviewed and No further action needed (score 3-5). Functional Observation Was the patient's Timed Up AND Go test unsteady or >= 12 seconds? No Advance Care Planning Surrogate decision maker and/or advance care plan documented Measurements BP 136/84 Pulse 76 Resp 16 Ht 148.6 cm (4' 10.5") Wt 78 kg (172 lb) BMI 35.34 kg/m? Vision Screening: Follows with optometry/ophthalmology Assessment/Plan Medicare annual wellness visit, subsequent (Z00.00) - Counseled on healthy diet and regular exercise - Fall avoidance information provided - Personalized prevention plan provided See Below Chief Complaint Patient presents with: Medicare Wellness Exam HPI Chalino Arguelles is a 78 year old female who presents here today for Medicare Annual Visit and extensive exam. Patient with hx of uncontrolled DM2, hyperlipidemia, HTN, hypothyroid, arthritis, obesity, vit D def and those as below. Patient has been doing ok. Seeing Endo for her diabetes. Past medical history, appointments, medications, allergies reviewed. Previous Medical History PAST MEDICAL HISTORY Diagnosis Date Acquired hypothyroidism 10/18/2013 Advance directive discussed with patient 11/14/2021 Discussed 10/2021 Arthritis of both knees 12/02/2021 Bilateral nonexudative age-related macular degeneration 03/31/2021 Dr. Mahan Chronic pain of right knee 11/14/2021 Diabetic eye exam (HCC) 04/01/2021 Last done. 09/03/2021. [facility]. Every 4-6 months Encounter for Medicare annual wellness exam 05/05/2024 Last done: 05/05/2024 Essential hypertension, benign Essential hypertension, benign 11/29/2014: Home BP Cuff Validated. Home BP: 141/80 76 Office BP: 151/88 73 Fibroadenosis of breast Hyperlipidemia associated with type 2 diabetes mellitus (HCC) (HCC) 11/15/2014 Hyperlipidemia LDL goal < 100 08/08/2013 Hypothyroidism 10/18/[address] 11/14/2021 DPA: ? 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 08/15/2012 Obesity, Class II, BMI 35-39.9 08/15/2012 Other and unspecified hyperlipidemia Other chronic pain 04/02/2021 Right knee pain 04/02/2021 Stage 3a chronic kidney disease ([facility]) 08/05/2023 Type 2 diabetes mellitus with microalbuminuria, without long-term current use of insulin ([facility]) 04/15/2016 Type 2 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dney disease (HCC) 07/31/2015 Type 2 diabetes mellitus with stage 3a chronic kidney disease, without long-term current use of insulin ([facility]) 09/03/2023 Type II or unspecified type diabetes mellitus without mention of complication, not stated as uncontrolled Uncontrolled type 2 DM with microalbuminuria or microproteinuria 09/28/2012 Vitamin D deficiency 10/19/2013 Previous Surgical History PAST SURGICAL HISTORY Procedure Laterality Date STEREOTACTIC CORE BIOPSY 07/05/08 Family History FAMILY HISTORY Problem Relation Age of Onset Arthritis Mother Heart Father Heart Maternal Uncle Hypertension Sister Hypertension Brother Patient Allergies ALLERGIES Allergen Reactions Penicillins Rash Sulfa (Sulfonamide * Rash Hctz [Hydrochloroth* Unknown Jardiance [Empaglif* Itching vaginally Norvasc [Amlodipine* Other: See Comments Thinning of the hair Current Medications Current Outpatient Medications on File Prior to Visit Medication Sig metFORMI (more content not included)...[facility]11-13-2024 Telephone encounter Note* Telephone Encounter - Eva Crisostomo LPN - 05/03/2024 10:01 AM EST Pt notified of pcp's message. Pt will do labs today. Eva Crisostomo LPN [facility]11-13-2024 Miscellaneous Notes* Telephone Encounter - Eva Crisostomo LPN - 05/03/2024 10:01 AM EST Pt notified of pcp's message. Pt will do labs today. Eva Crisostomo LPN * Telephone Encounter - Eva Crisostomo LPN - 05/03/2024 9:10 AM EST Left message for pt to contact office. Eva Crisostomo LPN * Telephone Encounter - Micky Pendleton MD - 05/02/2024 9:02 PM EST Let patient know blood and urine orders placed. * Telephone Encounter - Kristine Rosado LPN - 05/02/2024 2:16 PM EST Pt calls to report she has an appt 05/05/24 and is asking if pcp would like any labs done beforehand. No labs are ordered at this time. Call pt with 's message. Kristine Rosado LPN [facility]11[facility] Telephone encounter Note * Telephone Encounter - Eva Crisostomo LPN - 05/03/2024 9:10 AM EST Left message for pt to contact office. Eva Crisostomo LPN [facility]11-12-2024 Telephone encounter Note* Telephone Encounter - Micky Pendleton MD - 05/02/2024 9:02 PM EST Let patient know blood and urine orders placed. [facility]11-12-2024 Telephone encounter Note* Telephone Encounter - Kristine Rosado LPN - 05/02/2024 2:16 PM EST Pt calls to report she has an appt 05/05/24 and is asking if pcp would like any labs done beforehand. No labs are ordered at this time. Call pt with 's message. Kristine Rosado LPN [facility]10-30-2024 Miscellaneous Notes* Telephone Encounter - Haleigh Rivera - 04/19/2024 1:55 PM EDT Prescription Refill Information The patient has been identified by name and date of : Yes Caregiver verified no other encounters exist for this prescription request: Yes Caregiver confirmed with patient/requestor that no other refills are due, in the near future, with this provider at this time: Yes The last office visit in the department: 10-04-23 Does the patient have a future office visit with this provider/department: Yes Requested Prescriptions Pending Prescriptions Disp Refills metFORMIN (GLUCOPHAGE) 1,000 mg tablet 180 tablet 1 Sig: Take 1 tablet by mouth two times a day with meals. Haleigh Rivera April 19, 2024 1:55 PM documented in this encounterC[facility]10-[facility] Telephone encounter Note * Telephone Encounter - Haleigh Rivera - 04/19/2024 1:55 PM EDT Prescription Refill Information The patient has been identified by name and date of : Yes Caregiver verified no other encounters exist for this prescription request: Yes Caregiver confirmed with patient/requestor that no other refills are due, in the near future, with this provider at this time: Yes The last office visit in the department: 10-04-23 Does the patient have a future office visit with this provider/department: Yes Requested Prescriptions Pending Prescriptions Disp Refills metFORMIN (GLUCOPHAGE) 1,000 mg tablet 180 tablet 1 Sig: Take 1 tablet by mouth two times a day with meals. Haleigh Rivera April 19, 2024 1:55 PM [facility]10-21-2024 Telephone encounter Note* Telephone Encounter - Emily Manriquez - 04/10/2024 2:53 PM EDT Prescription Refill Information The patient has been identified by name and date of : Yes Caregiver verified no other encounters exist for this prescription request: Yes Caregiver confirmed with patient/requestor that no other refills are due, in the near future, with this provider at this time: Yes The last office visit in the department: 10-04-23 Does the patient have a future office visit with this provider/department: Yes 05-05-24 Requested Prescriptions Pending Prescriptions Disp Refills labetalol (TRANDATE) 100 mg tablet 240 tablet 5 Sig: Take 4 tablets by mouth two times a day. Emily Hoffman April 10, 2024 2:54 PM [facility]10-21-2024 Miscellaneous Notes* Telephone Encounter - Emily Manriquez - 04/10/2024 2:53 PM EDT Prescription Refill Information The patient has been identified by name and date of : Yes Caregiver verified no other encounters exist for this prescription request: Yes Caregiver confirmed with patient/requestor that no other refills are due, in the near future, with this provider at this time: Yes The last office visit in the department: 10-04-23 Does the patient have a future office visit with this provider/department: Yes 05-05-24 Requested Prescriptions Pending Prescriptions Disp Refills labetalol (TRANDATE) 100 mg tablet 240 tablet 5 Sig: Take 4 tablets by mouth two times a day. Emily Hoffman April 10, 2024 2:54 PM documented in [facility] encounterC[facility]10-[facility]24 Telephone encounter Note * Telephone Encounter - Gege Stauffer MA - 03/28/2024 8:25 AM EDT Prescription Refill Information The patient has been identified by name and date of : Yes Caregiver verified no other encounters exist for this prescription request: Yes Caregiver confirmed with patient/requestor that no other refills are due, in the near future, with this provider at this time: Yes The last office visit in the department: 09/03/23 Does the patient have a future office visit with this provider/department: Yes Requested Prescriptions Pending Prescriptions Disp Refills lisinopril (ZESTRIL) 30 mg tablet 60 tablet 5 Sig: Take 1 tablet by mouth two times a day. Refused Prescriptions Disp Refills JANUVIA 100 mg tablet [Pharmacy Med Name: Januvia 100 mg tablet] 90 tablet 0 Sig: take 1 tablet by mouth once daily. Gege Stauffer MA March 28, 2024 8:25 AM [facility]10-08-2024 Miscellaneous Notes* Telephone Encounter - Gege Stauffer MA - 03/28/2024 8:25 AM EDT Prescription Refill Information The patient has been identified by name and date of : Yes Caregiver verified no other encounters exist for this prescription request: Yes Caregiver confirmed with patient/requestor that no other refills are due, in the near future, with this provider at this time: Yes The last office visit in the department: 09/03/23 Does the patient have a future office visit with this provider/department: Yes Requested Prescriptions Pending Prescriptions Disp Refills lisinopril (ZESTRIL) 30 mg tablet 60 tablet 5 Sig: Take 1 tablet by mouth two times a day. Refused Prescriptions Disp Refills JANUVIA 100 mg tablet [Pharmacy Med Name: Januvia 100 mg tablet] 90 tablet 0 Sig: take 1 tablet by mouth once daily. Gege Stauffer MA March 28, 2024 8:25 AM * Telephone Encounter - Mariana Bustamante - 03/27/2024 4:26 PM EDT Prescription Refill Information The patient has been identified by name and date of : Yes Caregiver verified no other encounters exist for this prescription request: Yes Caregiver confirmed with patient/requestor that no other refills are due, in the near future, with this provider at this time: Yes The last office visit in the department: 10-04-23 Does the patient have a future office visit with this provider/department: Yes Requested Prescriptions Pending Prescriptions Disp Refills JANUVIA 100 mg tablet [Pharmacy Med Name: Januvia 100 mg tablet] 90 tablet 0 Sig: take 1 tablet by mouth once daily. lisinopril (ZESTRIL) 30 mg tablet 60 tablet 5 Sig: Take 1 tablet by mouth two times a day. Mariana Hoffman March 27, 2024 4:27 PM documented in this encounterC[facility]10-07-2024 Telephone encounter Note * Telephone Encounter - Mariana Bustamante - 03/27/2024 4:26 PM EDT Prescription Refill Information The patient has been identified by name and date of : Yes Caregiver verified no other encounters exist for this prescription request: Yes Caregiver confirmed with patient/requestor that no other refills are due, in the near future, with this provider at this time: Yes The last office visit in the department: 10-04-23 Does the patient have a future office visit with this provider/department: Yes Requested Prescriptions Pending Prescriptions Disp Refills JANUVIA 100 mg tablet [Pharmacy Med Name: Januvia 100 mg tablet] 90 tablet 0 Sig: take 1 tablet by mouth once daily. lisinopril (ZESTRIL) 30 mg tablet 60 tablet 5 Sig: Take 1 tablet by mouth two times a day. Mariana Hoffman March 27, 2024 4:27 PM [facility] Work Phone: 1(495) 865-347010-02-2024 Telephone encounter Note* Telephone Encounter - Mariana Tate MA - 03/22/2024 4:02 PM EDT Phoned patient informed her Januvia 100mg has been sent to pharmacy as requested. Relayed message from provider regarding glimepiride, " That is not a usual side effect of the medication, but she can discontinue if she is having diarrhea from it." Patient verbalized understanding and has no further questions. Mariana Tate MA [facility]10-02-2024 Miscellaneous Notes* Telephone Encounter - Mariana Tate MA - 03/22/2024 4:02 PM EDT Phoned patient informed her Januvia 100mg has been sent to pharmacy as requested. Relayed message from provider regarding glimepiride, " That is not a usual side effect of the medication, but she can discontinue if she is having diarrhea from it." Patient verbalized understanding and has no further questions. Mariana Tate MA * Telephone Encounter - Leatha Fleming LPN - 03/22/2024 1:17 PM EDT Patient called in and states she is still waiting for the Januvia 100mg to be sent as insurance will not cover the 50mg BID. She states she is still having the loose stools with the glimepiride but she states dropping it to the 2mg did help some. Patient did however say she has been taking the 4mg rather than the 2mg since she has been out of the Januvia. I explained to patient she should take the 2mg as suggested by Dr. Aaron to help with the loose stools. Leatha Fleming LPN * Telephone Encounter - Dung Aaron MD - 03/22/2024 1:12 PM EDT That is not a usual side effect of the medication, but she can discontinue if she is having diarrhea from it. Will send in Jnauvia 100 mg tablets to pharmacy * Telephone Encounter - Evangelina Fleming RN - 03/21/2024 3:12 PM EDT Patient called back in asking for her Januvia be changed. Patient also asking if she can stop the glimepiride be stopped when she starts the Januvia back up due to continued loose stools. Patient states that when she has held the glimepiride while traveling she does not have them. Evangelina Fleming RN * Telephone Encounter - Mariana Tate MA - 03/20/2024 3:26 PM EDT Patient reports insurance will not cover januvia 50mg BID but will cover 100mg daily. Patient asks this be sent in. Patient reports glimepiride causes loose stool with urgency. She is requesting to stop this medication. Patient was told not to stop the medication unless directed by a provider. Mariana Tate MA documented in this encounterC[facility]10-02-2024 Telephone encounter Note * Telephone Encounter - Leatha Fleming LPN - 03/22/2024 1:17 PM EDT Patient called in and states she is still waiting for the Januvia 100mg to be sent as insurance will not cover the 50mg BID. She states she is still having the loose stools with the glimepiride but she states dropping it to the 2mg did help some. Patient did however say she has been taking the 4mg rather than the 2mg since she has been out of the Januvia. I explained to patient she should take the 2mg as suggested by Dr. Aaron to help with the loose stools. Leatha Fleming LPN [facility]10-02-2024 Telephone encounter Note* Telephone Encounter - Dung Aaron MD - 03/22/2024 1:12 PM EDT That is not a usual side effect of the medication, but she can discontinue if she is having diarrhea from it. Will send in Jnauvia 100 mg tablets to pharmacy [facility]10-01-2024 Telephone encounter Note* Telephone Encounter - Evangelina Fleming RN - 03/21/2024 3:12 PM EDT Patient called back in asking for her Januvia be changed. Patient also asking if she can stop the glimepiride be stopped when she starts the Januvia back up due to continued loose stools. Patient states that when she has held the glimepiride while traveling she does not have them. Evangelina Fleming RN [facility]09-30-2024 Telephone encounter Note* Telephone Encounter - Mariana Tate MA - 03/20/2024 3:26 PM EDT Patient reports insurance will not cover januvia 50mg BID but will cover 100mg daily. Patient asks this be sent in. Patient reports glimepiride causes loose stool with urgency. She is requesting to stop this medication. Patient was told not to stop the medication unless directed by a provider. Mariana Tate MA [facility]09-23-2024 History of Present illness Narrative* Dung Aaron MD - 03/13/2024 4:34 PM EDT [facility] Follow up visit History of present illness: This is a 77-year old female with past medical history significant for poorly controlled type 2 diabetes mellitus, complicated by nonproliferative diabetic retinopathy, diabetic nephropathy, hypertension, hyperlipidemia, congestive heart failure who is presenting for management of diabetes -Initially diagnosed: at the age of 58 years -Circumstances around diagnosis: on routine labs She was started on metformin 500 mg daily by her family doctor, Dr. Irvin She reports to going to a course for diabetes/diabetes education class when she was first diagnosedwith diabetes 20 years ago, where she was started about dietary modifications and exercise, with provision of meals at the same course, and distribution of booklets for helping diabetics. She reportsfollowing these for a couple of years when her blood sugar control was good. She was also exercising at that time at the [facility] for 3 times a week, which also helped her blood sugars. She reports she has not been doing any exercise due to closure of [facility] during . She alsoreports not following the diet anymore. She reports seeing [employer] recently 6 months ago- reports was not helpful and [facility] not [facility] or any nutrition counseling/diabetes education programs. She would like to followwhat she learned about 20 years ago. She denied any history of surgical procedures on the pancreas, pancreatic cancer, pancreatitis or hospitalizations for DKA or HHS Denies any family history of diabetes mellitus, to the best of her knowledge She continues to report diarrhea, from glimepiride and not much effect after reducing the dose by half on last visit. 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 Irvin Obesity -- Yes Other -- No Diabetic education class: were completed as above Diabetes Medications -Current regimen: metformin 1000 mg BID, amaryl 4 mg daily, Janvuia 100 mg daily -Misses doses: None -Adverse medication effects: reports dizziness with Amaryl She is happy with Januvia improving her BG She has used Jardiance in the past, but was discontinued due to yeast infection . Blood sugars -Self monitoring of blood sugar via fingerstick: has started to check daily once, and BG are ranging from 180s-250s . Lifestyle -Exercise: she used to exercise 3 times a day -Diet: Eats all 3 meals, admits to not following a completely diabetic diet or low carb diet . Blood pressure -Current antihypertensive therapy: Lisinopril 30 mg once daily, labetalol 100 mg 4 tablets 2 times a day, hydralazine 25 mg once daily, Lasix 20 mg once daily . Lipids -Last lipid panel: 07/2023 -Currently on Statin therapy: no ROS: 10 point ROS was reviewed and negative unless indicated in the HPI Past Medical History PAST MEDICAL HISTORY Diagnosis Date Acquired hypothyroidism 10/18/2013 Advance directive discussed with patient 11/14/2021 Discussed 10/2021 Arthritis of both knees 12/02/2021 Bilateral nonexudative age-related macular degeneration 03/31/2021 Dr. Mahan Chronic pain of right knee 11/14/2021 Diabetic eye exam ([facility]) 04/01/2021 Last done. 09/03/2021. [facility]. Every 4-6 months Essential hypertension, benign Essential hypertension, benign 11/29/2014: Home BP Cuff Validated. Home BP: 141/80 76 Office BP: 151/88 73 Fibroadenosis of breast Hyperlipidemia associated with type 2 diabetes mellitus ([facility]) ([facility]) 11/15/2014 Hyperlipidemia LDL goal < 100 08/08/2013 Hypothyroidism 10/18/[address] 11/14/2021 DPA: ? 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 Mahan- [facility] Obesity 08/15/2012 Obesity, Class II, BMI 35-39.9 08/15/2012 Other and unspecified hyperlipidemia Other chronic pain 04/02/2021 Right knee pain 04/02/2021 Stage 3a chronic kidney disease ([facility]) 08/05/2023 Type 2 diabetes mellitus with microalbuminuria, without long-term current use of insulin ([facility]) 04/15/2016 Type 2 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dney disease ([facility]) 07/31/2015 Type 2 diabetes mellitus with stage 3a chronic kidney disease, without long-term current use of insulin ([facility]) 09/03/2023 Type II or unspecified type diabetes mellitus without mention of complication, not stated as uncontrolled Uncontrolled type 2 DM with microalbuminuria or microproteinuria 09/28/2012 Vitamin D deficiency 10/19/2013 Past Surgical History PAST SURGICAL HISTORY Procedure Laterality Date STEREOTACTIC CORE BIOPSY 1/15/09 Family History FAMILY HISTORY Problem Relation Age of Onset Arthritis Mother Heart Father Heart Maternal Uncle Hypertension Sister Hypertension Brother Social History Social History Tobacco Use Smoking status: Never Smokeless tobacco: Never Substance Use Topics Alcohol use: No Drug use: No Allergies ALLERGIES Allergen Reactions Penicillins Rash Sulfa (Sulfonamide * Rash Hctz [Hydrochloroth* Unknown Jardiance [Empaglif* Itching vaginally Norvasc [Amlodipine* Other: See Comments Thinning of the hair Current Medications Current Outpatient Medications Medication Sig Dispense Refill furosemide (LASIX) 20 mg tablet Take 1 tablet by mouth once daily. 30 tablet 5 SITagliptin phosphate (JANUVIA) 100 mg tablet Take 1 tablet by mouth once daily. 90 tablet 0 metFORMIN (GLUCOPHAGE) 1,000 mg tablet Take 1 tablet by mouth two times a day with meals. 180 tablet 1 glimepiride (AMARYL) 4 mg tablet Take 1 tablet by mouth two times a day with meals. (Patient takingdifferently: Take 4 mg by mouth daily with breakfast.) 180 tablet 1 Blood-Glucose Meter (TRUE METRIX GLUCOSE METER) monitoring kit 1 Each once daily as needed. 1 Kit 0 blood sugar diagnostic (TRUE METRIX GLUCOSE TEST STRIP) test strip 1 Strip once daily. Use with blood glucose test 1 time a day. Insulin Dep? No 90 Strip 1 Lancets Test blood sugar(s) 1 times daily. Dx: E11.22 Insulin: No 100 Each 11 lisinopril (ZESTRIL) 30 mg tablet Take 1 tablet by mouth two times a day. 60 tablet 5 blood sugar diagnostic test strip Use with blood glucose test one to three times daily 200 Each 1 labetalol (TRANDATE) 100 mg tablet Take 4 tablets by mouth two times a day. 240 tablet 5 levothyroxine (SYNTHROID) 75 mcg tablet Take 1 tablet by mouth once daily. Wed- Wed and two on Wednesday Take on empty stomach. For Thyroid 34 tablet 5 hydrALAZINE (APRESOLINE) 25 mg tablet Take 1 tablet by mouth four times daily. 360 tablet 1 Cholecalciferol, Vitamin D3, 1,000 unit cap Take 1 capsule by mouth once daily. 30 capsule 11 Blood-Glucose Meter, Drum-type (ACCU-CHEK COMPACT PLUS CARE) kit Dx.250.04 checks sugars once daily. No insulin 1 Kit 0 No current facility-administered medications for this visit. Vitals: 03/13/24 1629 Pulse: 80 Resp: 20 SpO2: 96% Weight: 78.6 kg (173 lb 3.2 oz) Height: 147.3 cm (4' 10") Physical Exam GENERAL: Well nourished, obese, well hydrated, in no distress and oriented x 3 EYES: no thyroid eye signs, EOMI NECK: , no tenderness and adenopathy THYROID: Non-tender to palpable, no evidence of goiter, no nodules palpable LUNGS: Unlabored on room air HEART: regular rate and rhythm GI: abdomen is soft, nontender EXTREMITIES: no edema NEURO: normal strength, no tremor, monofilament testing done in 08/2023 with normal sensations OTHER: Acanthosis None Labs: Latest Ref Rng 08/02/2023 Protein, Total 6.3 - 8.0 g/dL 6.6 Albumin 3.9 - 4.9 g/dL 4.3 Calcium 8.5 - 10.2 mg/dL 9.7 Bilirubin, Total 0.2 - 1.3 mg/dL 0.4 Alkaline Phosphatase 34 - 123 U/L 62 AST 13 - 35 U/L 18 ALT 7 - 38 U/L 13 Glucose 74 - 99 mg/dL 348 (H) BUN 7 - 21 mg/dL 26 (H) Creatinine 0.58 - 0.96 mg/dL 1.18 (H) Sodium 136 - 144 mmol/L 134 (L) Potassium 3.7 - 5.1 mmol/L 4.1 Chloride 97 - 105 mmol/L 92 (L) CO2 22 - 30 mmol/L 28 Anion Gap 9 - 18 mmol/L 14 eGFR >=60 mL/min/1.73m 47 (L) Total Cholesterol, Nonfasting <200 mg/dL 195 Triglycerides, Nonfasting <150 mg/dL 225 (H) HDL Cholesterol, Nonfasting >39 mg/dL 42 LDL Cholesterol, Nonfasting <100 mg/dL 108 (H) Non HDL Cholesterol, Nonfasting <130 mg/dL 153 (H) VLDL Cholesterol, Nonfasting <30 mg/dL 45 (H) Total Chol/HDL Ratio, Nonfasting <5.10 mg/dL 4.64 LDL/HDL Ratio, Nonfasting <2.54 mg/dL 2.57 (H) Creatinine, Ur Random (UCRR) 20.0 - 300.0 mg/dL 56.1 Albumin, Urine Random mg/L 82.1 Albumin/Creat Ratio <30 mg/g 146 (H) Hemoglobin A1C 4.3 - 5.6 % 10.6 (H) Estimated Average Glucose mg/dL 258 Vitamin D 25 Hydroxy 31.0 - 80.0 ng/mL 37.3 TSH 0.270 - 4.200 mIU/L 3.730 Legend: (H) High (L) Low Latest Ref Rng 02/15/2020 05/15/2020 03/27/2021 11/11/2021 05/01/2022 08/21/2022 08/02/2023 12/16/2023 Hemoglobin A1C 4.3 - 5.6 % 9.7 (H) 8.1 (H) 9.2 (H) 9.9 (H) 9.9 (H) 10.2 (H) 10.6 (H) 8.7 (H) Estimated Average Glucose mg/dL 232 186 217 237 237 246 258 203 Legend: (H) High Hba1c POC 9.6% today Assessment and Plan Poorly controlled type 2 DM with proliferative diabetic retinopathy, diabetic nephropathy, ?CHF -A1c 10.6% in 07/2023, improved to 8.7% in 11/2023, now is 9.6% after lowering the dose of amaryl on last visit and increasing the dose of januvia -eGFR 47 in 07/2023 -Current regimen: Metformin 1000 mg twice daily, glimepiride 4 mg daily, Januvia 100 mg daily Plan: - she does not like using insulin or GLP-1 As due to injections - She has used Jardiance in the past with yeast infection and reports higher propensity to have yeast infections - hence I started her on Januvia 50 mg daily on the first visit - reports dizziness with amaryl andimprovement in symptoms when went off of it, so we reduced amaryl to 4 mg daily. She would prefer taking Januvia 50 mg BID, rather than 100 mg daily (requested for higher dose, but this is the max dose we have for this medication) - Continue same medications I do not prefer insulin for her due to age, and she does not prefer taking any injectables either, including GLP-1 Agonists -Check blood sugar atleast once daily (alternating each day with fasting, prelunch, predinner, and bedtime BG) so glycemic control can be assessed at various times points in the day -Refills declined. -Denied needing any refills on medications or supplies at this time -Lifestyle modifications (diet, exercise) have been discussed with the patient. - we discussed about profound diet and lifestyle modifications to control BG as we have less options for diabetes in her case - she again declined diabetes education and would try the methods/dietary modifications learnt 20 years ago during the first class she had after diagnosis #Blood Pressure -Currently antihypertensive regimen: Lisinopril 30 mg once daily, hydralazine 25 mg once daily, labetalol 100 mg 4 times daily - On ACEi appropriately, PCP managing #Dyslipidemia -Last lipid panel showing LDL cholesterol at 108 mg/dL, triglycerides elevated to 225 mg/dL, total cholesterol at 195 mg/dL -Currently not on statin therapy - discussed about starting a cholesterol lowering medication on last visit, patient declines and would like to concentrate on her diet and exercise first - discussed diet and exercise #Obesity Class II with serious comobidity -Diet and exercise discussed as above RTC in 3 months as per her preference, she would like to come in Jun 2024 Medical Decision Making: Problems: Moderate: 1+ chronic illnesses with change Data: Unique test result(s) reviewed: 3+ Unique test(s) ordered: 1 Risk: Moderate: Drug management Medical Decision Making Level: 4 - Moderate Dung Aaron MD Endocrinology Associate Staff [facility] Endocrinology and Metabolism [place] [phone] documented in this encounterC[facility]08-15-[facility]24 Telephone encounter Note * Telephone Encounter - Micky Pendleton MD - 02/03/2024 4:17 PM EDT The following approved medication requests have been transmitted electronically. Requested Prescriptions Signed Prescriptions Disp Refills furosemide (LASIX) 20 mg tablet 30 tablet 5 Sig: Take 1 tablet by mouth once daily. Authorizing Provider: MICKY PENDLETON MD [facility]08-15-2024 Miscellaneous Notes* Telephone Encounter - Micky Pendleton MD - 02/03/2024 4:17 PM EDT The following approved medication requests have been transmitted electronically. Requested Prescriptions Signed Prescriptions Disp Refills furosemide (LASIX) 20 mg tablet 30 tablet 5 Sig: Take 1 tablet by mouth once daily. Authorizing Provider: MICKY PENDLETON MD * Telephone Encounter - Emily Manriquez - 02/03/2024 3:09 PM EDT Prescription Refill Information The patient has been identified by name and date of : Yes Caregiver verified no other encounters exist for this prescription request: Yes Caregiver confirmed with patient/requestor that no other refills are due, in the near future, with this provider at this time: Yes The last office visit in the department: 10-04-23 Does the patient have a future office visit with this provider/department: Yes Requested Prescriptions Pending Prescriptions Disp Refills furosemide (LASIX) 20 mg tablet 30 tablet 5 Sig: Take 1 tablet by mouth once daily. Emily Hoffman February 03, 2024 3:09 PM documented in this encounterCleveland Clinic [facility]08-15-2024 Telephone encounter Note * Telephone Encounter - Emily Manriquez - 02/03/2024 3:09 PM EDT Prescription Refill Information The patient has been identified by name and date of : Yes Caregiver verified no other encounters exist for this prescription request: Yes Caregiver confirmed with patient/requestor that no other refills are due, in the near future, with this provider at this time: Yes The last office visit in the department: 10-04-23 Does the patient have a future office visit with this provider/department: Yes Requested Prescriptions Pending Prescriptions Disp Refills furosemide (LASIX) 20 mg tablet 30 tablet 5 Sig: Take 1 tablet by mouth once daily. Emily Hoffman February 03, 2024 3:09 PM [facility]07-[facility] History of Present illness Narrative* Eva Crisostomo LPN - 01/04/2024 9:02 AM EDT Scan on 12/31/2023 10:57 PM by Provider, JOSE DAVID Freire: Consultation - Ophthalmology documented in this encounterCleveland Clinic [facility]07-08-2024 Telephone encounter Note * Telephone Encounter - Mariana Tate MA - 12/27/2023 10:07 AM EDT Phoned patient to relay following message. "Please let patient know that her Hba1c done on 12/16/23 is much better than in the past " An answering machine started then I was disconnected. Mariana Tate MA [facility]07-08-2024 Miscellaneous Notes* Telephone Encounter - Mariana Tate MA - 12/27/2023 10:07 AM EDT Phoned patient to relay following message. "Please let patient know that her Hba1c done on 12/16/23 is much better than in the past " An answering machine started then I was disconnected. Mariana Tate MA documented in this encounterCleveland Clinic Foundation06-21-2024 Instructions* Patient Instructions* Dung Aaron MD - 12/10/2023 4:27 PM EDT Please increase the dose of Januvia 100 mg daily Decrease Glimepiride to 4 mg daily Please log in blood sugars to bring on next visit documented in this encounterCleveland Clinic Foundation06-21-2024 History of Present illness Narrative* Dung Aaron MD - 12/10/2023 4:22 PM EDT [facility] Follow up visit History of present illness: This is a 77-year old female with past medical history significant for poorly controlled type 2 diabetes mellitus, complicated by nonproliferative diabetic retinopathy, diabetic nephropathy, hypertension, hyperlipidemia, congestive heart failure who is presenting for management of diabetes -Initially diagnosed: at the age of 58 years -Circumstances around diagnosis: on routine labs She was started on metformin 500 mg daily by her family doctor, Dr. Irvin She reports to going to a course for diabetes/diabetes education class when she was first diagnosedwith diabetes 20 years ago, where she was started about dietary modifications and exercise, with provision of meals at the same course, and distribution of booklets for helping diabetics. She reportsfollowing these for a couple of years when her blood sugar control was good. She was also exercising at that time at the [facility] for 3 times a week, which also helped her blood sugars. She reports she has not been doing any exercise due to closure of [facility] during . She alsoreports not following the diet anymore. She reports seeing plastic card grader cardroom recently 6 months ago- reports was not helpful and does not [facility] or any nutrition counseling/diabetes education programs. She would like to followwhat she learned about 20 years ago. 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 Irvin Obesity -- Yes Other -- No Diabetic education class: were completed as above Diabetes Medications -Current regimen: metformin 1000 mg BID, amaryl 4 mg BID, Janvuia 50 mg daily -Misses doses: None -Adverse medication effects: reports dizziness with Amayl She is happy with Januvia improving her BG She has used Jardiance in the past, but was discontinued due to yeast infection . Blood sugars -Self monitoring of blood sugar via fingerstick: has started to check daily, but did not bring log book with her . Lifestyle -Exercise: she used to exercise 3 times a day -Diet: Eats all 3 meals, admits to not following strict diabetic diet . Blood pressure -Today BP: 130/86 -BP cuff at home: -Current antihypertensive therapy: Lisinopril 30 mg once daily, labetalol 100 mg 4 tablets 2 times a day, hydralazine 25 mg once daily, Lasix 20 mg once daily . Lipids -Last lipid panel: 07/2023 -Currently on Statin therapy: no ROS: 10 point ROS was reviewed and negative unless indicated in the HPI Past Medical History PAST MEDICAL HISTORY Diagnosis Date Acquired hypothyroidism 10/18/2013 Advance directive discussed with patient 11/14/2021 Discussed 10/2021 Arthritis of both knees 12/02/2021 Bilateral nonexudative age-related macular degeneration 03/31/2021 Dr. Mahan Chronic pain of right knee 11/14/2021 Diabetic eye exam ([facility]) 04/01/2021 Last done. 09/03/2021. [facility]. Every 4-6 months Essential hypertension, benign Essential hypertension, benign 11/29/2014: Home BP Cuff Validated. Home BP: 141/80 76 Office BP: 151/88 73 Fibroadenosis of breast Hyperlipidemia associated with type 2 diabetes mellitus ([facility]) ([facility]) 11/15/2014 Hyperlipidemia LDL goal < 100 08/08/2013 Hypothyroidism 10/18/[address] 11/14/2021 DPA: ? 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 Mahan- [facility] Obesity 08/15/2012 Obesity, Class II, BMI 35-39.9 08/15/2012 Other and unspecified hyperlipidemia Other chronic pain 04/02/2021 Right knee pain 04/02/2021 Stage 3a chronic kidney disease (HCC) 08/05/2023 Type 2 diabetes mellitus with microalbuminuria, without long-term current use of insulin ([facility]) 04/15/2016 Type 2 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dney disease (HCC) 07/31/2015 Type 2 diabetes mellitus with stage 3a chronic kidney disease, without long-term current use of insulin ([facility]) 09/03/2023 Type II or unspecified type diabetes mellitus without mention of complication, not stated as uncontrolled Uncontrolled type 2 DM with microalbuminuria or microproteinuria 09/28/2012 Vitamin D deficiency 10/19/2013 Past Surgical History PAST SURGICAL HISTORY Procedure Laterality Date STEREOTACTIC CORE BIOPSY 07/05/08 Family History FAMILY HISTORY Problem Relation Age of Onset Arthritis Mother Heart Father Heart Maternal Uncle Hypertension Sister Hypertension Brother Social History Social History Tobacco Use Smoking status: Never Smokeless tobacco: Never Substance Use Topics Alcohol use: No Drug use: No Allergies ALLERGIES Allergen Reactions Penicillins Rash Sulfa (Sulfonamide * Rash Hctz [Hydrochloroth* Unknown Jardiance [Empaglif* Itching vaginally Norvasc [Amlodipine* Other: See Comments Thinning of the hair Current Medications Current Outpatient Medications Medication Sig Dispense Refill SITagliptin phosphate (JANUVIA) 50 mg tablet Take 1 tablet by mouth once daily for 8 days. 8 tablet0 metFORMIN (GLUCOPHAGE) 1,000 mg tablet Take 1 tablet by mouth two times a day with meals. 180 tablet 1 glimepiride (AMARYL) 4 mg tablet Take 1 tablet by mouth two times a day with meals. 180 tablet 1 Blood-Glucose Meter (TRUE METRIX GLUCOSE METER) monitoring kit 1 Each once daily as needed. 1 Kit 0 blood sugar diagnostic (TRUE METRIX GLUCOSE TEST STRIP) test strip 1 Strip once daily. Use with blood glucose test 1 time a day. Insulin Dep? No 90 Strip 1 Lancets Test blood sugar(s) 1 times daily. Dx: E11.22 Insulin: No 100 Each 11 lisinopril (ZESTRIL) 30 mg tablet Take 1 tablet by mouth two times a day. 60 tablet 5 blood sugar diagnostic test strip Use with blood glucose test one to three times daily 200 Each 1 labetalol (TRANDATE) 100 mg tablet Take 4 tablets by mouth two times a day. 240 tablet 5 levothyroxine (SYNTHROID) 75 mcg tablet Take 1 tablet by mouth once daily. Wed- Wed and two on Wednesday Take on empty stomach. For Thyroid 34 tablet 5 hydrALAZINE (APRESOLINE) 25 mg tablet Take 1 tablet by mouth four times daily. 360 tablet 1 furosemide (LASIX) 20 mg tablet Take 1 tablet by mouth once daily. 30 tablet 5 Cholecalciferol, Vitamin D3, 1,000 unit cap Take 1 capsule by mouth once daily. 30 capsule 11 Blood-Glucose Meter, Drum-type (ACCU-CHEK COMPACT PLUS CARE) kit Dx.250.04 checks sugars once daily. No insulin 1 Kit 0 No current facility-administered medications for this visit. Vitals: 12/10/23 1604 BP: 130/86 Pulse: 81 Weight: 78.2 kg (172 lb 6.4 oz) Height: 147.3 cm (4' 10") Physical Exam GENERAL: Well nourished, obese, well hydrated, in no distress and oriented x 3 EYES: no thyroid eye signs, EOMI NECK: , no tenderness and adenopathy THYROID: Non-tender to palpable, no evidence of goiter, no nodules palpable LUNGS: Unlabored on room air HEART: regular rate and rhythm GI: abdomen is soft, nontender EXTREMITIES: no edema NEURO: normal strength, no tremor, monofilament testing done in 08/2023 with normal sensations OTHER: Acanthosis None Labs: Latest Ref Rng 08/02/2023 Protein, Total 6.3 - 8.0 g/dL 6.6 Albumin 3.9 - 4.9 g/dL 4.3 Calcium 8.5 - 10.2 mg/dL 9.7 Bilirubin, Total 0.2 - 1.3 mg/dL 0.4 Alkaline Phosphatase 34 - 123 U/L 62 AST 13 - 35 U/L 18 ALT 7 - 38 U/L 13 Glucose 74 - 99 mg/dL 348 (H) BUN 7 - 21 mg/dL 26 (H) Creatinine 0.58 - 0.96 mg/dL 1.18 (H) Sodium 136 - 144 mmol/L 134 (L) Potassium 3.7 - 5.1 mmol/L 4.1 Chloride 97 - 105 mmol/L 92 (L) CO2 22 - 30 mmol/L 28 Anion Gap 9 - 18 mmol/L 14 eGFR >=60 mL/min/1.73m 47 (L) Total Cholesterol, Nonfasting <200 mg/dL 195 Triglycerides, Nonfasting <150 mg/dL 225 (H) HDL Cholesterol, Nonfasting >39 mg/dL 42 LDL Cholesterol, Nonfasting <100 mg/dL 108 (H) Non HDL Cholesterol, Nonfasting <130 mg/dL 153 (H) VLDL Cholesterol, Nonfasting <30 mg/dL 45 (H) Total Chol/HDL Ratio, Nonfasting <5.10 mg/dL 4.64 LDL/HDL Ratio, Nonfasting <2.54 mg/dL 2.57 (H) Creatinine, Ur Random (UCRR) 20.0 - 300.0 mg/dL 56.1 Albumin, Urine Random mg/L 82.1 Albumin/Creat Ratio <30 mg/g 146 (H) Hemoglobin A1C 4.3 - 5.6 % 10.6 (H) Estimated Average Glucose mg/dL 258 Vitamin D 25 Hydroxy 31.0 - 80.0 ng/mL 37.3 TSH 0.270 - 4.200 mIU/L 3.730 Legend: (H) High (L) Low Assessment and Plan Poorly controlled type 2 DM with proliferative diabetic retinopathy, diabetic nephropathy, ?CHF -A1c 10.6% in 07/2023 -eGFR 47 in 07/2023 -Current regimen: Metformin 1000 mg twice daily, glimepiride 4 mg twice daily, Januvia 50 mg daily No BG log to review Plan: - she does not like using insulin or GLP-1 A due to injections - She has used Jardiance in the past with yeast infection and reports higher propensity to have yeast infections - hence I started her on Januvia 50 mg daily on last visit, - reports dizziness with amaryl and improvement in symptoms when went off of it - Will increase Januvia to 100 mg daily - Will decrease Glimepiride to 4 mg daily due to her reporting dizziness with the medication with improvement when stopped. Explained to her that due to limitation of options, I would recommend trying half the dose first -Check blood sugar once daily (alternating each day with fasting, prelunch, predinner, and bedtime BG) so glycemic control can be assessed at various times points in the day -Refills for accu check test strips given on last visit. Requested bringing log on next visit -Denied needing any refills on medications or supplies at this time -Lifestyle modifications (diet, exercise) have been discussed with the patient - she again declined diabetes education and would try the methods/dietary modifications learnt 20 years ago during the first class she had after diagnosis #Blood Pressure -Today BP 130/86 -Currently antihypertensive regimen: Lisinopril 30 mg once daily, hydralazine 25 mg once daily, labetalol 100 mg 4 times daily - On ACEi appropriately, PCP managing #Dyslipidemia -Last lipid panel showing LDL cholesterol at 108 mg/dL, triglycerides elevated to 225 mg/dL, total cholesterol at 195 mg/dL -Currently not on statin therapy - discussed about starting a cholesterol lowering medication on last visit, patient declines and would like to concentrate on her diet and exercise first - discussed diet and exercise #Obesity Class II with serious comobidity -Diet and exercise discussed as above RTC in 3 months Medical Decision Making: Problems: Moderate: 1+ chronic illnesses with change and 2+ stable chronic illnesses Data: Unique test result(s) reviewed: 3+ Unique test(s) ordered: 1 Risk: Moderate: Drug management Medical Decision Making Level: 4 - Moderate Dung Aaron MD Endocrinology Associate Staff [facility] Endocrinology and Metabolism [place] [phone] documented in this encounterCleveland Clinic Foundation06-14-2024 Telephone encounter Note * Telephone Encounter - Apple Palumbo MD - 12/03/2023 3:32 PM EDT Rx renewed until next appt. Apple Palumbo MD Endocrinology & Metabolism [place] [facility]06-14-2024 Miscellaneous Notes* Telephone Encounter - Apple Palumbo MD - 12/03/2023 3:32 PM EDT Rx renewed until next appt. Apple Palumbo MD Endocrinology & Metabolism [place] * Telephone Encounter - Mariana Tate MA - 12/03/2023 3:06 PM EDT Prescription Refill Information The patient has been identified by name and date of : Yes Caregiver verified no other encounters exist for this prescription request: Yes Caregiver confirmed with patient/requestor that no other refills are due, in the near future, with this provider at this time: Yes The last office visit in the department: 09/06/2023 Does the patient have a future office visit with this provider/department: Yes Requested Prescriptions No prescriptions requested or ordered in this encounter Mariana Tate MA December 03, 2023 3:06 PM documented in this encounterCleveland Clinic Foundation06-14-2024 Telephone encounter Note * Telephone Encounter - Mariana Tate MA - 12/03/2023 3:06 PM EDT Prescription Refill Information The patient has been identified by name and date of : Yes Caregiver verified no other encounters exist for this prescription request: Yes Caregiver confirmed with patient/requestor that no other refills are due, in the near future, with this provider at this time: Yes The last office visit in the department: 09/06/2023 Does the patient have a future office visit with this provider/department: Yes Requested Prescriptions No prescriptions requested or ordered in this encounter Mariana Tate MA December 03, 2023 3:06 PM [facility]05-31-20[facility] Telephone encounter Note* Telephone Encounter - Sanjana Michael RN - 11/19/2023 10:15 AM EDT Images from the original note were not included. Return call placed to Gracy at [employer]. Left her a detailed voicemail explaining the below email received from [facility] 'Provider Enrollment Team': This states: Dr. Aaron's [place] Medicaid and [place] Medicare are both FULLY ACTIVE at this time. There is no provider enrollment issue on our end so this falls back on the patient/pharmacy to verify and/or correct. Phone number given to Gracy to call back if she has any further questions. Sanjana Michael RN November 19, 2023 10:17 AM [facility]05-31-2024 Miscellaneous Notes* Telephone Encounter - Sanjana Michael RN - 11/19/2023 10:15 AM EDT Images from the original note were not included. Return call placed to Gracy at [employer]. Left her a detailed voicemail explaining the below email received from [facility] 'Provider Enrollment Team': This states: Dr. Aaron's [place] Medicaid and [place] [employer] Medicare are both FULLY ACTIVE at this time. There is no provider enrollment issue on our end so this falls back on the patient/pharmacy to verify and/or correct. Phone number given to Gracy to call back if she has any further questions. Sanjana Michael RN November 19, 2023 10:17 AM * Telephone Encounter - Sanjana Michael RN - 11/18/2023 2:25 PM EDT Call placed to Gracy @ [employer] to clarify previous phone message. She states that she called Medicare and was told they were unable to find Dr. Aaron in their system, so it was recommended that Dr. Aaron check with SARAH on her system enrollment dates to ensure it did not lapse and/or . Notified Gracy that our office would follow up with her and Dr. Aaron would be the one prescribing Pt's diabetic testing supplies. She voices understanding. Sanjana Michael RN November 18, 2023 2:28 PM * Telephone Encounter - Jess Valencia MA - 11/18/2023 11:21 AM EDT Gracy with [facility] calling needing verbal ok to place Dr. Pendleton on patients diabetic supplies order. Dr. Aaron (Endocrine) is original prescriber however per pharmacy Dr. Aaron is not in theMedicare data base so insurance will not cover the supplies unless PCP is on order. Ok to switch names? Jess Valencia MA documented in this encounterCleveland Clinic Foundation05-30-2024 Telephone encounter Note * Telephone Encounter - Sanjana Michael RN - 11/18/2023 2:25 PM EDT Call placed to Gracy [employer] to clarify previous phone message. She states that she called Medicare and was told they were unable to find Dr. Aaron in their system, so it was recommended that Dr. Aaron check with SARAH on her system enrollment dates to ensure it did not lapse and/or . Notified Gracy that our office would follow up with her and Dr. Aaron would be the one prescribing Pt's diabetic testing supplies. She voices understanding. Sanjana Michael RN November 18, 2023 2:28 PM [facility]05-30-2024 Telephone encounter Note* Telephone Encounter - Jess Valencia MA - 11/18/2023 11:21 AM EDT Gracy with [facility] calling needing verbal ok to place Dr. Pendleton on patients diabetic supplies order. Dr. Aaron (Endocrine) is original prescriber however per pharmacy Dr. Aaron is not in theMedicare data base so insurance will not cover the supplies unless PCP is on order. Ok to switch names? Jess Valencia MA [facility]05-16-2024 Telephone encounter Note* Telephone Encounter - Micky Pendleton MD - 11/04/2023 5:27 PM EDT [facility]. Pharmacist claimed we sent a script on 10/07/2023 for 30 day supply and no refill so it cancelled out the 09/03/2023 script. I advised the pharmacist there is no record on our end of a script being sent 10/07/2023 for 30 days and no refill. There was one on 08/09/2023 with 30 days and no refill. The issues was corrected and patient was informed she can supervisor opening and picking her refill tomorrow. [facility]05-16-2024 Miscellaneous Notes* Telephone Encounter - Micky Pendleton MD - 11/04/2023 5:27 PM EDT [facility] and [facility] issue. Pharmacist claimed we sent a script on 10/07/2023 for 30 day supply and no refill so it cancelled out the 09/03/2023 script. I advised the pharmacist there is no record on our end of a script being sent 10/07/2023 for 30 days and no refill. There was one on 08/09/2023 with 30 days and no refill. The issues was corrected and patient was informed she can supervisor opening and picking her refill tomorrow. * Telephone Encounter - Dona Castellanos - 11/04/2023 4:42 PM EDT Chalino is calling Micky Pendleton MD today with concern regarding the pharmacy will not fill the labetalol until our office calls to straighten the refills out on the RX from 09/03/2023 for 240 tablets (30 day supply) with 5 refills, they are advising patient there are no (0) refills. Pharmacy is [facility] in [place]. [phone] Can clinical please help patient with this medication problem? Please advise patient of status once resolved. Patient has been identified by name and birthdate. Person calling: self Call patient at: at home [phone] (home) Was an appointment scheduled: No Closing statement: Results or non-symptom based questions: Thank you for calling [facility], your call will be returned within the next business day. Dona Dia documented in this encounterC[facility]05-[facility]24 Telephone encounter Note * Telephone Encounter - Dona Castellanos - 11/04/2023 4:42 PM EDT Chalino is calling Micky Pendleton MD today with concern regarding the pharmacy will not fill the labetalol until our office calls to straighten the refills out on the RX from 09/03/2023 for 240 tablets (30 day supply) with 5 refills, they are advising patient there are no (0) refills. Pharmacy is [facility] in [place]. [phone] Can clinical please help patient with this medication problem? Please advise patient of status once resolved. Patient has been identified by name and birthdate. Person calling: self Call patient at: at home [phone] (home) Was an appointment scheduled: No Closing statement: Results or non-symptom based questions: Thank you for calling [facility], your call will be returned within the next business day. Dona Dia [facility]05-01-2024 Telephone encounter Note* Telephone Encounter - Amasa Sarah Hoffman - 10/20/2023 2:24 PM EDT Patient has been identified by name and date of : Yes Patient phones for refill(s): Requested Prescriptions Pending Prescriptions Disp Refills metFORMIN (GLUCOPHAGE) 1,000 mg tablet 180 tablet 1 Sig: Take 1 tablet by mouth two times a day with meals. glimepiride (AMARYL) 4 mg tablet 180 tablet 1 Sig: Take 1 tablet by mouth two times a day with meals. Date of last office visit in primary care: 10/04/2023 Date of next office visit in primary care: 01/12/2024 Please advise. Thank you. Sarah Hoffman. [facility]05-01-2024 Miscellaneous Notes* Telephone Encounter - Amasa Sarah Hoffman - 10/20/2023 2:24 PM EDT Patient has been identified by name and date of : Yes Patient phones for refill(s): Requested Prescriptions Pending Prescriptions Disp Refills metFORMIN (GLUCOPHAGE) 1,000 mg tablet 180 tablet 1 Sig: Take 1 tablet by mouth two times a day with meals. glimepiride (AMARYL) 4 mg tablet 180 tablet 1 Sig: Take 1 tablet by mouth two times a day with meals. Date of last office visit in primary care: 10/04/2023 Date of next office visit in primary care: 01/12/2024 Please advise. Thank you. Sarah Ramirez Pss. documented in this encounterC[facility]04-[facility]-2024 History of Present illness Narrative* Christy Angeles LPN - 10/08/2023 12:15 PM EDT Scan on 10/07/2023 3:51 PM by Provider, External, ROMAC: Consultation - Ophthalmology Results recorded in pt's chart. Christy Angeles LPN documented in this encounterCleveland Clinic [facility]04-15-2024 History of Present illness Narrative* Saul Murphy APRN.CLERK CHECKER - 10/04/2023 3:30 PM EDT Chief Complaint Patient presents with: Follow Up: Blood pressure HPI Chalino Arguelles is a 78 year old female who presents here today for Above Complaints.. Patient presents for BP follow up. Patient lisinopril was increased to 30mg twice daily. Home BP's have been well controlled in 120-130's. Past medical history, appointments, medications, allergies reviewed. Previous Medical History PAST MEDICAL HISTORY Diagnosis Date Acquired hypothyroidism 10/18/2013 Advance directive discussed with patient 11/14/2021 Discussed 10/2021 Arthritis of both knees 12/02/2021 Bilateral nonexudative age-related macular degeneration 03/31/2021 Dr. Mhaan Chronic pain of right knee 11/14/2021 Diabetic eye exam (HCC) 04/01/2021 Last done. 09/03/2021. [facility]. Every 4-6 months Essential hypertension, benign Essential hypertension, benign 11/29/2014: Home BP Cuff Validated. Home BP: 141/80 76 Office BP: 151/88 73 Fibroadenosis of breast Hyperlipidemia associated with type 2 diabetes mellitus ([facility]) ([facility]) 11/15/2014 Hyperlipidemia LDL goal < 100 08/08/2013 Hypothyroidism 10/18/[address] 11/14/2021 DPA: ? 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 08/15/2012 Obesity, Class II, BMI 35-39.9 08/15/2012 Other and unspecified hyperlipidemia Other chronic pain 04/02/2021 Right knee pain 04/02/2021 Stage 3a chronic kidney disease ([facility]) 08/05/2023 Type 2 diabetes mellitus with microalbuminuria, without long-term current use of insulin ([facility]) ([facility]) 04/15/2016 Type 2 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dney disease ([facility]) 07/31/2015 Type 2 diabetes mellitus with stage 3a chronic kidney disease, without long-term current use of insulin ([facility]) 09/03/2023 Type II or unspecified type diabetes mellitus without mention of complication, not stated as uncontrolled Uncontrolled type 2 DM with microalbuminuria or microproteinuria 09/28/2012 Vitamin D deficiency 10/19/2013 Previous Surgical History PAST SURGICAL HISTORY Procedure Laterality Date STEREOTACTIC CORE BIOPSY 07/05/08 Family History FAMILY HISTORY Problem Relation Age of Onset Arthritis Mother Heart Father Heart Maternal Uncle Hypertension Sister Hypertension Brother Patient Allergies ALLERGIES Allergen Reactions Penicillins Rash Sulfa (Sulfonamide * Rash Hctz [Hydrochloroth* Unknown Jardiance [Empaglif* Itching vaginally Norvasc [Amlodipine* Other: See Comments Thinning of the hair Current Medications Current Outpatient Medications on File Prior to Visit Medication Sig glimepiride (AMARYL) 4 mg tablet Take 1 tablet by mouth two times a day with meals. Blood-Glucose Meter (TRUE METRIX GLUCOSE METER) monitoring kit 1 Each once daily as needed. blood sugar diagnostic (TRUE METRIX GLUCOSE TEST STRIP) test strip 1 Strip once daily. Use with blood glucose test 1 time a day. Insulin Dep? No Lancets Test blood sugar(s) 1 times daily. Dx: E11.22 Insulin: No lisinopril (ZESTRIL) 30 mg tablet Take 1 tablet by mouth two times a day. SITagliptin phosphate (JANUVIA) 50 mg tablet Take 1 tablet by mouth once daily. blood sugar diagnostic test strip Use with blood glucose test one to three times daily labetalol (TRANDATE) 100 mg tablet Take 4 tablets by mouth two times a day. levothyroxine (SYNTHROID) 75 mcg tablet Take 1 tablet by mouth once daily. Mon- Sat and two on Wednesday Take on empty stomach. For Thyroid hydrALAZINE (APRESOLINE) 25 mg tablet Take 1 tablet by mouth four times daily. furosemide (LASIX) 20 mg tablet Take 1 tablet by mouth once daily. metFORMIN (GLUCOPHAGE) 1,000 mg tablet Take 1 tablet by mouth two times a day with meals. Cholecalciferol, Vitamin D3, 1,000 unit cap Take 1 capsule by mouth once daily. Blood-Glucose Meter, Drum-type (ACCU-CHEK COMPACT PLUS CARE) kit Dx.250.04 checks sugars once daily. No insulin No current facility-administered medications on file prior to visit. Social History Social History Tobacco Use Smoking status: Never Smokeless tobacco: Never Substance Use Topics Alcohol use: No Drug use: No Review of Symptoms REVIEW OF SYSTEMS SEE HPI EXAM: BP 155/79 Pulse 76 Resp 16 Wt 78.5 kg (173 lb) BMI 36.16 kg/m General Appearance: Well appearing, alert, in no acute distress, well-hydrated, well nourished.. Lungs: Lungs clear to auscultation. No wheezing, rhonchi, rales.. Heart: RRR without murmur, gallop, or rubs. No ectopy. Health Maintenance List BP Controlled (<130/80) due on 01/07/2020 Dilated Retinal Exam due on 09/03/2022 Diabetic Foot Exam due on 11/14/2022 Behavioral Health Screening Never done DTaP,Tdap,Td Vaccine(1 - Tdap) due on 09/02/2024 RSV Vaccine(1 - 1-dose 60+ series) due on 09/02/2024 Shingrix Vaccine(1 of 2) due on 09/02/2024 Covid-19 Vaccine( - 2022- season) due on 09/02/2024 HbA1C due on 10/31/2023 Urine Albumin:Creatinine Ratio due on 08/02/2024 LDL Cholesterol due on 08/02/2024 Hemoglobin/Hematocrit due on 08/02/2024 Serum Creatinine due on 08/30/2024 Annual PCP Team Chronic Disease Visit due on 09/02/2024 Bone Density Screening Completed Influenza Vaccine Completed Advance Directive Discussion Completed Pneumococcal Vaccine: 65+ Completed Colorectal Cancer Screening Discontinued Data reviewed Last 5 Encounter BP Readings: Date: BP: 10/04/2023 117/81[BP Rossi Average[ 09/06/2023 146/82 09/03/2023 162/108 08/05/2023 120/80 08/25/2022 126/75[BP Rossi Average[ ASSESSMENT/PLAN: 1. Essential hypertension, benign - ICD9: 401.1, ICD10: I10 - Controlled - Continue current medications - Recommend home blood pressure monitoring, to bring results to next visit - Encouraged sodium restriction, DASH or Mediterranean diet - Recommend regular aerobic exercise Saul Murphy APRN.CLERK CHECKER documented in this encounterC[facility]04-04-2024 Miscellaneous Notes* Telephone Encounter - Christy Angeles LPN - 09/23/2023 2:13 PM EDT Patient has been identified by name and date of : Yes, Provider Dr Pendleton Patient phones for refill(s): Requested Prescriptions Pending Prescriptions Disp Refills glimepiride (AMARYL) 4 mg tablet 60 tablet 0 Sig: Take 1 tablet by mouth two times a day with meals. Date of last office visit in primary care: 09/03/2023 Date of next office visit in primary care: 10/04/2023 Last refill: 08/17/23 #60 0 refills Please advise. Thank you. Christy Angeles LPN. * Telephone Encounter - Lynn Romero - 09/23/2023 2:05 PM EDT Patient has been identified by name and date of : Yes, Provider Helder Patient phones for refill(s): Requested Prescriptions Pending Prescriptions Disp Refills glimepiride (AMARYL) 4 mg tablet 60 tablet 0 Sig: Take 1 tablet by mouth two times a day with meals. Date of last office visit in primary care: 09/03/2023 Date of next office visit in primary care: 10/04/2023 Please advise. Thank you. Lynn Hoffman. documented in this encounterC[facility]03-21-2024 Miscellaneous Notes* Telephone Encounter - Juliana Cates LPN - 09/09/2023 1:01 PM EDT Patient called, verified name and date of , regarding needing orders. Patient stated Dr. Aaron requested that she check her blood sugar once daily. Patient states she needs an order sent over to [facility] [employer] [facility] for the following: True metric meter True metric test strips Unilat test strips Also the order needs to include diagnosis codes for all supplies, how many times a day patient willneed to check blood sugar. Patient stated that [employer] told her all 3 need to have a drug code inorder for medicare to pay for supplies. Patient would like a call back when order is sent over to [employer], number verified. Juliana Cates LPN September 09, 2023 1:06 PM documented in this encounterCleveland [facility]03-18-2024 Miscellaneous Notes* Telephone Encounter - Aimee Pena RN - 09/06/2023 6:37 PM EDT Spoke with patient. Given message from provider's office. Patient verbalizes understanding. Aimee Pena RN * Telephone Encounter - Kathy Forrester RN - 09/06/2023 4:38 PM EDT Called and left a voicemail for the Patient to call back and ask for a nurse to receive the providers message. Kathy Forrester RN * Telephone Encounter - Micky Pendleton MD - 09/06/2023 3:35 PM EDT Let patient know I went and look at her BP at her appt with Endo and it's still too high. I am going to adjust her lisinopril to 30 mg twice a day. She can use up her 20 mg tabs by taking 1.5 tabs twice a day or taking 40 mg in the AM and 20 mg in the PM. I did send in a script for the 30 mg dose. Patient needs appt with RAJESH in 4 weeks for HTN med check. documented in this encounterCleveland Clinic [facility]03-18-2024 Nurse Note* Dung Aaron MD - 09/06/2023 4:05 PM EDT Blood pressure was taken manually and with patients home device. documented in this encounterCleveland Clinic [facility]03-18-2024 History of Present illness Narrative* Dung Aaron MD - 09/06/2023 3:18 PM EDT [facility] Initial Clinic Visit Note Referred by: Deisi Calle PA-C My final recommendations will be communicated back to the requesting provider by way of shared medical record or letter via US mail. History of present illness: This is a 77-year old female with past medical history significant for poorly controlled type 2 diabetes mellitus, complicated by nonproliferative diabetic retinopathy, diabetic nephropathy, hypertension, hyperlipidemia, congestive heart failure who is presenting for management of diabetes -Initially diagnosed: at the age of 58 years -Circumstances around diagnosis: on routine labs She was started on metformin 500 mg daily by her family doctor, Dr. Irvin She reports to going to a course for diabetes/diabetes education class when she was first diagnosedwith diabetes 20 years ago, where she was started about dietary modifications and exercise, with provision of meals at the same course, and distribution of booklets for helping diabetics. She reportsfollowing these for a couple of years when her blood sugar control was good. She was also exercising at that time at the [facility] for 3 times a week, which also helped her blood sugars. She reports she has not been doing any exercise due to closure of [facility] during . She alsoreports not following the diet anymore. She reports seeing plastic card grader cardroom recently 6 months ago- reports was not helpful and does not [facility] or any nutrition counseling/diabetes education programs. She would like to followwhat she learned about 20 years ago. 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 Irvin Obesity -- Yes Other -- No Diabetic education class: were completed as above Diabetes Medications -Current regimen: metformin 1000 mg BID, amaryl 4 mg BID -Misses doses: None -Adverse medication effects: no She has used Jardiance in the past, but was discontinued due to yeast infection . Blood sugars -Self monitoring of blood sugar via fingerstick: once every 2 weeks -Reports that okay, when I mentioned that her HbA1c indicates average blood sugars in 300s and questioned if that is true, she agrees . -Microalbumin/Cr -KARLA/ARB use -Follows with air conditioner installer helper:no . Lifestyle -Exercise: she used to exercise 3 times a day -Diet: Eats all 3 meals, admits to not following strict diabetic diet . Blood pressure -Today BP: 146/82 -BP cuff at home: -Current antihypertensive therapy: Lisinopril 30 mg once daily, labetalol 100 mg 4 tablets 2 times a day, hydralazine 25 mg once daily, Lasix 20 mg once daily . Lipids -Last lipid panel -10 year ASCVD risk score if age 40-75: -Prior coronary artery calcium score: -Prior Lipoprotein(a) measurement level -Currently on Statin therapy: -Statin associated side effects: ROS: 10 point ROS was reviewed and negative unless indicated in the HPI Past Medical History PAST MEDICAL HISTORY Diagnosis Date Acquired hypothyroidism 10/18/2013 Advance directive discussed with patient 11/14/2021 Discussed 10/2021 Arthritis of both knees 12/02/2021 Bilateral nonexudative age-related macular degeneration 03/31/2021 Dr. Mahan Chronic pain of right knee 11/14/2021 Diabetic eye exam ([facility]) 04/01/2021 Last done. 09/03/2021. [facility]. Every 4-6 months Essential hypertension, benign Essential hypertension, benign 11/29/2014: Home BP Cuff Validated. Home BP: 141/80 76 Office BP: 151/88 73 Fibroadenosis of breast Hyperlipidemia associated with type 2 diabetes mellitus ([facility]) ([facility]) 11/15/2014 Hyperlipidemia LDL goal < 100 08/08/2013 Hypothyroidism 10/18/[address] 11/14/2021 DPA: ? 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 Mahan- [facility] Obesity 08/15/2012 Obesity, Class II, BMI 35-39.9 08/15/2012 Other and unspecified hyperlipidemia Other chronic pain 04/02/2021 Right knee pain 04/02/2021 Stage 3a chronic kidney disease ([facility]) 08/05/2023 Type 2 diabetes mellitus with microalbuminuria, without long-term current use of insulin ([facility]) ([facility]) 04/15/2016 Type 2 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dney disease ([facility]) 07/31/2015 Type 2 diabetes mellitus with stage 3a chronic kidney disease, without long-term current use of insulin ([facility]) 09/03/2023 Type II or unspecified type diabetes mellitus without mention of complication, not stated as uncontrolled Uncontrolled type 2 DM with microalbuminuria or microproteinuria 09/28/2012 Vitamin D deficiency 10/19/2013 Past Surgical History PAST SURGICAL HISTORY Procedure Laterality Date STEREOTACTIC CORE BIOPSY 07/05/08 Family History FAMILY HISTORY Problem Relation Age of Onset Arthritis Mother Heart Father Heart Maternal Uncle Hypertension Sister Hypertension Brother Social History Social History Tobacco Use Smoking status: Never Smokeless tobacco: Never Substance Use Topics Alcohol use: No Drug use: No Allergies ALLERGIES Allergen Reactions Penicillins Rash Sulfa (Sulfonamide * Rash Hctz [Hydrochloroth* Unknown Jardiance [Empaglif* Itching vaginally Norvasc [Amlodipine* Other: See Comments Thinning of the hair Current Medications Current Outpatient Medications Medication Sig Dispense Refill labetalol (TRANDATE) 100 mg tablet Take 4 tablets by mouth two times a day. 240 tablet 5 levothyroxine (SYNTHROID) 75 mcg tablet Take 1 tablet by mouth once daily. Wed- Wed and two on Wednesday Take on empty stomach. For Thyroid 34 tablet 5 glimepiride (AMARYL) 4 mg tablet Take 1 tablet by mouth two times a day with meals. 60 tablet 0 hydrALAZINE (APRESOLINE) 25 mg tablet Take 1 tablet by mouth four times daily. 360 tablet 1 lisinopril (ZESTRIL) 20 mg tablet Take 1 tablet by mouth two times a day. 60 tablet 5 furosemide (LASIX) 20 mg tablet Take 1 tablet by mouth once daily. 30 tablet 5 metFORMIN (GLUCOPHAGE) 1,000 mg tablet Take 1 tablet by mouth two times a day with meals. 180 tablet 1 blood sugar diagnostic (BLOOD GLUCOSE TEST) test strip Test blood sugar(s) 1 times daily. Dx: E11.22 Insulin: No 50 Strip 11 Cholecalciferol, Vitamin D3, 1,000 unit cap Take 1 capsule by mouth once daily. 30 capsule 11 Lancets lancets Test blood sugar(s) 1 times daily. Dx: E11.22 Insulin: No 100 Each 11 Blood-Glucose Meter, Drum-type (ACCU-CHEK COMPACT PLUS CARE) kit Dx.250.04 checks sugars once daily. No insulin 1 Kit 0 No current facility-administered medications for this visit. Vitals: 09/06/23 1504 BP: 174/72 Pulse: 87 Temp: 36.4 C (97.6 F) TempSrc: Temporal Artery SpO2: 98% Weight: 79.1 kg (174 lb 6.4 oz) Height: 147.3 cm (4' 10") Repeat blood pressure was 146/82 Physical Exam GENERAL: Well nourished, obese, well hydrated, in no distress and oriented x 3 EYES: no thyroid eye signs, EOMI NECK: , no tenderness and adenopathy THYROID: Non-tender to palpable, no evidence of goiter, no nodules palpable LUNGS: Unlabored on room air HEART: regular rate and rhythm GI: abdomen is soft, nontender EXTREMITIES: no edema NEURO: normal strength, no tremor, monofilament testing done today with normal sensations OTHER: Acanthosis None Labs: Latest Ref Rng 08/02/2023 Protein, Total 6.3 - 8.0 g/dL 6.6 Albumin 3.9 - 4.9 g/dL 4.3 Calcium 8.5 - 10.2 mg/dL 9.7 Bilirubin, Total 0.2 - 1.3 mg/dL 0.4 Alkaline Phosphatase 34 - 123 U/L 62 AST 13 - 35 U/L 18 ALT 7 - 38 U/L 13 Glucose 74 - 99 mg/dL 348 (H) BUN 7 - 21 mg/dL 26 (H) Creatinine 0.58 - 0.96 mg/dL 1.18 (H) Sodium 136 - 144 mmol/L 134 (L) Potassium 3.7 - 5.1 mmol/L 4.1 Chloride 97 - 105 mmol/L 92 (L) CO2 22 - 30 mmol/L 28 Anion Gap 9 - 18 mmol/L 14 eGFR >=60 mL/min/1.73m 47 (L) Total Cholesterol, Nonfasting <200 mg/dL 195 Triglycerides, Nonfasting <150 mg/dL 225 (H) HDL Cholesterol, Nonfasting >39 mg/dL 42 LDL Cholesterol, Nonfasting <100 mg/dL 108 (H) Non HDL Cholesterol, Nonfasting <130 mg/dL 153 (H) VLDL Cholesterol, Nonfasting <30 mg/dL 45 (H) Total Chol/HDL Ratio, Nonfasting <5.10 mg/dL 4.64 LDL/HDL Ratio, Nonfasting <2.54 mg/dL 2.57 (H) Creatinine, Ur Random (UCRR) 20.0 - 300.0 mg/dL 56.1 Albumin, Urine Random mg/L 82.1 Albumin/Creat Ratio <30 mg/g 146 (H) Hemoglobin A1C 4.3 - 5.6 % 10.6 (H) Estimated Average Glucose mg/dL 258 Vitamin D 25 Hydroxy 31.0 - 80.0 ng/mL 37.3 TSH 0.270 - 4.200 mIU/L 3.730 Legend: (H) High (L) Low Assessment and Plan Poorly controlled type 2 DM with proliferative diabetic retinopathy, diabetic nephropathy, ?CHF -A1c 10.6% in 07/2023 -eGFR 47 in 07/2023 -Current regimen: Metformin 1000 mg twice daily, glimepiride 4 mg twice daily Plan: - discussed starting insulin and educated the reasons behind it- she would not like to use insulin due to injection and also declines using GLP-1 A for the same reason - She has used Jardiance in the past with yeast infection and reports higher propensity to have yeast infections - hence I started her on Januvia 50 mg daily, will increase on next visit to 100 mg daily if tolerating fine- although I discussed with her that Januvia might be as effective to cut down her sugars like insulin would do- but she would like to try and get back on her diet and exercise to help her sugars - discussed extensively for need to control glucose levels to avoid worsening of complications and avoid new complications -Check blood sugar once daily (alternating each day with fasting, prelunch, predinner, and bedtime BG) so glycemic control can be assessed at various times points in the day -Refills for accu check test strips given -Lifestyle modifications (diet, exercise, and weight loss) have been discussed with the patient - she declined diabetes education and would try the methods/dietary modifications learnt 20 years ago during the first class she had after diagnosis - advised to schedule for eye exam soon #Blood Pressure -Today BP 170/72, repeat 146/82 -Currently antihypertensive regimen: Lisinopril 30 mg once daily, hydralazine 25 mg once daily, labetalol 100 mg 4 times daily - spoke to her about need for adjusting her antihypertensive regimen- reports her PCP advised her to let them know the BP at office today to make sure her home device is working fine and also to add BP medication #Dyslipidemia -Last lipid panel showing LDL cholesterol at 108 mg/dL, triglycerides elevated to 225 mg/dL, total cholesterol at 195 mg/dL -Currently not on statin therapy - discussed bout starting a cholesterol lowering medication, patient declines and would like to concentrate on her diet and exercise first #Obesity Class II with serious comobidity -Diet and exercise discussed as above RTC in 3 months I spent a total of 69 minutes on the date of the service which included preparing to see the patient, [id number] patient care, completing clinical documentation, obtaining and/or reviewing separately obtained history, performing a medically appropriate examination, counseling and educating the pat ient/family/caregiver, ordering medications, tests, or procedures, and independently interpreting results (not separately reported). 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) Stage 3a chronic kidney disease (HCC) Diabetic eye exam (HCC) Type II or unspecified type diabetes mellitus without mention of complication, not stated as uncontrolled Essential hypertension, benign Hyperlipidemia, mixed Mixed hyperlipidemia Acquired hypothyroidism Unspecified hypothyroidism Vitamin D deficiency Unspecified vitamin D deficiency Obesity, Class II, BMI 35-39.9 Obesity, unspecified Arthritis of both knees Unspecified arthropathy, lower leg Advance directive discussed with patient Other specified counseling documented in this encounter [facility]03-15-2024 Instructions* Patient Instructions* Micky Pendleton MD - 09/03/2023 2:38 PM EDT Please make an appt to get your yearly diabetic eye exam. Please take you blood pressure cuff from home to your appt with the endocrine doctor on 09/06/2023. Consider getting the shingrix vaccine from a local pharmacy. Consider getting the RSV vaccine in the late summer or early fall at a local pharmacy. Consider getting a Tdap for tetanus booster at the health dept documented in this encounterCleveland Clinic Foundation03-15-2024 History of Present illness Narrative* Micky Pendleton MD - 09/03/2023 1:29 PM EDT Chief Complaint Patient presents with: Medicare Wellness Exam HPI Chalino Arguelles is a 77 year old female who presents here today wants to concentrate on Kidney's' labs, Arthritis. Patient doesn't want to complete a Medicare wellness exam today. She would like to discuss some concerns she has instead. Wanted to discuss the stage 3a CKD. Review her labs. Patient with hx of uncontrolled DM2, hyperlipidemia, HTN, hypothyroid, arthritis, obesity, vit D def and those as below. Any new concerns today? Patient indicated that she has been drinking more water per instructions. She is taking Tylenol Arthirits one in the AM/PM Patient has been having pain in both knees. Has Arthritis. She says the pain is not in her knees it's from her knees down to her ankles. Seems to be worse if going up and down the basemen steps, morepainful if a storm is coming in. Using tylenol Arthritis one twice a day. This does seem to be helping, though not as well as the ibuprofen did. Patient declined COVID vaccine Any recent ER/hospital? None Past medical history, appointments, medications, allergies reviewed. Previous Medical History PAST MEDICAL HISTORY Diagnosis Date Acquired hypothyroidism 10/18/2013 Advance directive discussed with patient 11/14/2021 Discussed 10/2021 Arthritis of both knees 12/02/2021 Bilateral nonexudative age-related macular degeneration 03/31/2021 Dr. Mahan Chronic pain of right knee 11/14/2021 Diabetic eye exam ([facility]) 04/01/2021 Last done. 09/03/2021. [facility]. Every 4-6 months Essential hypertension, benign Essential hypertension, benign 11/29/2014: Home BP Cuff Validated. Home BP: 141/80 76 Office BP: 151/88 73 Fibroadenosis of breast Hyperlipidemia associated with type 2 diabetes mellitus ([facility]) ([facility]) 11/15/2014 Hyperlipidemia LDL goal < 100 08/08/2013 Hypothyroidism 10/18/[address] 11/14/2021 DPA: ? 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 Mahan- [facility] Obesity 08/15/2012 Obesity, Class II, BMI 35-39.9 08/15/2012 Other and unspecified hyperlipidemia Other chronic pain 04/02/2021 Right knee pain 04/02/2021 Type 2 diabetes mellitus with microalbuminuria, without long-term current use of insulin (HCC) ([facility]) 04/15/2016 Type 2 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dney disease (HCC) 07/31/2015 Type II or unspecified type diabetes mellitus without mention of complication, not stated as uncontrolled Uncontrolled type 2 DM with microalbuminuria or microproteinuria 09/28/2012 Vitamin D deficiency 10/19/2013 Previous Surgical History PAST SURGICAL HISTORY Procedure Laterality Date STEREOTACTIC CORE BIOPSY 07/05/08 Family History FAMILY HISTORY Problem Relation Age of Onset Arthritis Mother Heart Father Heart Maternal Uncle Hypertension Sister Hypertension Brother Patient Allergies ALLERGIES Allergen Reactions Penicillins Rash Sulfa (Sulfonamide * Rash Hctz [Hydrochloroth* Unknown Jardiance [Empaglif* Itching vaginally Norvasc [Amlodipine* Other: See Comments Thinning of the hair Current Medications Current Outpatient Medications on File Prior to Visit Medication Sig glimepiride (AMARYL) 4 mg tablet Take 1 tablet by mouth two times a day with meals. hydrALAZINE (APRESOLINE) 25 mg tablet Take 1 tablet by mouth four times daily. labetalol (TRANDATE) 100 mg tablet Take 4 tablets by mouth two times a day. lisinopril (ZESTRIL) 20 mg tablet Take 1 tablet by mouth two times a day. furosemide (LASIX) 20 mg tablet Take 1 tablet by mouth once daily. levothyroxine (SYNTHROID) 75 mcg tablet Take 1 tablet by mouth once daily. Wed- Wed and two on Wednesday Take on empty stomach. For Thyroid metFORMIN (GLUCOPHAGE) 1,000 mg tablet Take 1 tablet by mouth two times a day with meals. blood sugar diagnostic (BLOOD GLUCOSE TEST) test strip Test blood sugar(s) 1 times daily. Dx: E11.22 Insulin: No Cholecalciferol, Vitamin D3, 1,000 unit cap Take 1 capsule by mouth once daily. Lancets lancets Test blood sugar(s) 1 times daily. Dx: E11.22 Insulin: No Blood-Glucose Meter, Drum-type (ACCU-CHEK COMPACT PLUS CARE) kit Dx.250.04 checks sugars once daily. No insulin No current facility-administered medications on file prior to visit. Social History Social History Tobacco Use Smoking status: Never Smokeless tobacco: Never Substance Use Topics Alcohol use: No Drug use: No Review of Symptoms REVIEW OF SYSTEMS GENERAL: No weight loss, malaise or fevers RESPIRATORY: Negative for cough, hemoptysis, wheezing, COPD, dyspnea or shortness of breath CARDIOVASCULAR: Negative for chest pain, leg swelling, hypertension, CHF or palpitations GI: No nausea, vomiting, or diarrhea and No heartburn or reflux symptoms : No history of dysuria, frequency or blood MUSCULOSKELETAL: see HPI NEURO: No history of headaches, syncope, paralysis, seizures or tremors Endo: denies any heat or cold intolerance. No symptoms of low BS's EXAM: BP 140/92 (BP Site: Right Arm, BP Position: Sitting, BP Cuff Size: Large Adult) Pulse 82 Resp 18 Ht 147.3 cm (4' 10") Wt 79.8 kg (176 lb) BMI 36.78 kg/m BP 162/108 Pulse 82 Resp 18 Ht 147.3 cm (4' 10") Wt 79.8 kg (176 lb) BMI 36.78 kg/m At home gets 130's/70-80's ( cuff has not been validated in several years. Last 5 Encounter Wt Readings: Date: Wt: 09/03/2023 79.8 kg (176 lb) 08/05/2023 78.9 kg (174 lb) 08/25/2022 80.3 kg (177 lb) 05/05/2022 79.8 kg (176 lb) 01/05/2022 80.1 kg (176 lb 8 oz) General Appearance: Well appearing, alert, in no acute distress, well-hydrated, well nourished. andObese. Neck: Supple, no adenopathy; thyroid symmetric, normal size, no bruits. Lungs: Lungs clear to auscultation. No wheezing, rhonchi, rales.. Heart: RRR without murmur, gallop, or rubs. No ectopy. Abdomen: Normal abdominal exam, Abdomen soft, non-tender. Bowel sounds normal. No masses, organomegaly. Extremities: No deformities, edema, skin discoloration, Good capillary refill. . Musculoskeletal: Muscular strength intact, No joint swelling, deformity, or tenderness. Peripheral Pulses: Normal. Neurologic: Gait normal: aided with a cane Sensation to light touch and crainal nerves 2-12 intact.. Health Maintenance List DTaP,Tdap,Td Vaccine(1 - Tdap) Never done Shingrix Vaccine(1 of 2) Never done RSV Vaccine(1 - 1-dose 60+ series) Never done BP Controlled (<130/80) due on 01/07/2020 Dilated Retinal Exam due on 09/03/2022 Diabetic Foot Exam due on 11/14/2022 Covid-19 Vaccine(2022-24 season) due on 02/19/2023 Advance Directive Discussion due on 06/21/2023 Depression Assessment due on 06/21/2023 HbA1C due on 10/31/2023 Urine Albumin:Creatinine Ratio due on 08/02/2024 LDL Cholesterol due on 08/02/2024 Hemoglobin/Hematocrit due on 08/02/2024 Annual PCP Team Chronic Disease Visit due on 08/05/2024 Serum Creatinine due on 08/30/2024 Bone Density Screening Completed Influenza Vaccine Completed Pneumococcal Vaccine: 65+ Completed Colorectal Cancer Screening Discontinued Data reviewed Latest Ref Rng 05/01/2022 08/21/2022 08/02/2023 08/31/2023 WBC 3.70 - 11.00 k/uL 10.50 RBC 3.90 - 5.20 m/uL 4.37 Hemoglobin 11.5 - 15.5 g/dL 12.5 Hematocrit 36.0 - 46.0 % 38.1 MCV 80.0 - 100.0 fL 87.2 MCH 26.0 - 34.0 pg 28.6 MCHC 30.5 - 36.0 g/dL 32.8 RDW-CV 11.5 - 15.0 % 12.3 Platelet Count 150 - 400 k/uL 266 MPV 9.0 - 12.7 fL 11.6 Neut% % 76.6 Abs Neut (ANC) 1.45 - 7.50 k/uL 8.05 (H) Lymph% % 15.8 Abs Lymph 1.00 - 4.00 k/uL 1.66 [place]% % 5.4 Abs [place] <0.87 k/uL 0.57 Eosin% % 0.9 Abs Eosin <0.46 k/uL 0.09 Baso% % 0.8 Abs Baso <0.11 k/uL 0.08 Immature Gran % % 0.5 IMMATURE GRANS (ABS) <0.10 k/uL 0.05 NRBC /100 WBC 0.0 Absolute nRBC <0.01 k/uL <0.01 DTYPE Auto Color Yellow Light Yellow Yellow Clarity Clear Clear Clear Glucose, Urine Negative 2+ ! 1+ ! Bilirubin, Urine Negative Negative Negative Ketones, Urine Negative Negative Negative Specific [place], Ur 1.005 - 1.030 1.010 1.012 Hemoglobin/Blood,Ur Negative Negative Negative pH, Urine <8.5 6.0 6.0 Protein, Urine Negative Trace Trace ! Urobilinogen 0.2-1.0 EU/dL Negative 0.2 EU/dL Nitrites Negative Negative Negative Leukest Negative 25 Noemy/uL Negative WBC, Urine 0-5 /HPF 0-5 /HPF 0-5 /HPF RBC, Urine 0-2 /HPF 0-3 /HPF 0-2 /HPF Bacteria Negative /HPF Negative Epithelial Cells /HPF None Seen Hyaline Cast 0 /LPF 1-3 /LPF ! 1-3 /LPF ! Protein, Total 6.3 - 8.0 g/dL 6.6 Albumin 3.9 - 4.9 g/dL 4.3 Calcium 8.5 - 10.2 mg/dL 10.2 9.7 9.6 Bilirubin, Total 0.2 - 1.3 mg/dL 0.4 Alkaline Phosphatase 34 - 123 U/L 62 AST 13 - 35 U/L 18 ALT 7 - 38 U/L 13 Glucose 74 - 99 mg/dL 292 (H) 348 (H) 368 (H) BUN 7 - 21 mg/dL 23 (H) 26 (H) 19 Creatinine 0.58 - 0.96 mg/dL 0.99 (H) 1.18 (H) 1.12 (H) Sodium 136 - 144 mmol/L 136 134 (L) 135 (L) Potassium 3.7 - 5.1 mmol/L 4.1 4.1 4.2 Chloride 97 - 105 mmol/L 97 92 (L) 96 (L) CO2 22 - 30 mmol/L 26 28 26 Anion Gap 9 - 18 mmol/L 13 14 13 eGFR >=60 mL/min/1.73m 58 (L) 47 (L) 50 (L) Total Cholesterol, Nonfasting <200 mg/dL 196 202 (H) 195 Triglycerides, Nonfasting <150 mg/dL 224 (H) 214 (H) 225 (H) HDL Cholesterol, Nonfasting >39 mg/dL 43 46 42 LDL Cholesterol, Nonfasting <100 mg/dL 108 (H) 113 (H) 108 (H) Non HDL Cholesterol, Nonfasting <130 mg/dL 153 (H) 156 (H) 153 (H) VLDL Cholesterol, Nonfasting <30 mg/dL 45 (H) 43 (H) 45 (H) Total Chol/HDL Ratio, Nonfasting <5.10 mg/dL 4.56 4.39 4.64 LDL/HDL Ratio, Nonfasting <2.54 mg/dL 2.51 2.46 2.57 (H) Creatinine, Ur Random (UCRR) 20.0 - 300.0 mg/dL 56.1 Albumin, Urine Random mg/L 82.1 Albumin/Creat Ratio <30 mg/g 146 (H) Hemoglobin A1C 4.3 - 5.6 % 9.9 (H) 10.2 (H) 10.6 (H) Estimated Average Glucose mg/dL 237 246 258 TSH 0.270 - 4.200 mIU/L 1.790 3.210 3.730 Vitamin D 25 Hydroxy 31.0 - 80.0 ng/mL 37.3 Results XR KNEE GENERAL 4V AP BOTH/PA BOTH/LAT/MERC BILATERAL ([facility]#[id number]) (Order [id number]) Patient Info Patient Name Sex Chalino Conn ([id number]) Female 1945 11/28/2021 7:07 PM - Radiology, [place] In Impression IMPRESSION: Advanced bilateral medial joint compartment osteoarthrosis, right greater than left Collaborative Physician[facility] Transcribe Date/Time: Nov 28 2021 7:03P Dictated by : DOMINICK CUELLO MD This examination was interpreted and the report reviewed and electronically signed by: DOMINICK CUELLO MD on Nov 28 2021 7:05PM EST Results-Findings * * *Final Report* * * DATE OF EXAM: Nov 28 2021 4:08PM WOX [id number] - XR KNEE 4V AP/PA/LAT/MERCH MOR / PROCEDURE REASON: multiple diagnoses * * * * Physician Interpretation * * * * PROCEDURE: Bilateral knees INDICATION: Chronic pain of right knee .injured rt knee a year ago getting out of tub, pain medial had PT for it still has some swelling, Left knee is ok TECHNIQUE: XR KNEE 4V AP/PA/LAT/MERCH MOR COMPARISON: None FINDINGS: Significant medial joint compartment narrowing bilaterally, much greater on the right than the left. There is bony remodeling and resultant genu varus on the right. Mild tricompartment spur formation. No pneumothorax or or joint effusion. A/P ASSESSMENT/PLAN: 1. Type 2 diabetes mellitus with stage 3a chronic kidney disease, without long- term current use of insulin (HCC) - ICD9: 250.40, 585.3, ICD10: E11.22, N18.31 (primary diagnosis) - Uncontrolled - Counseled on healthy diet and regular exercise - Discussed need for and benefit of weight loss. BMI 36.78 kg/(m^2) - discussed consult to electronic device monitor but patient did not feel she needed this. - patient will be establishing with Endo next week. Advised her to take her home BP cuff into that appt. 2. 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 3. Stage 3a chronic kidney disease (HCC) - ICD9: 585.3, ICD10: N18.31 - eGFR: 50 Stable - Counseled on avoiding NSAIDs, adequate hydration - Counseled on low sodium diet - ACEi/ARB prescribed: Yes 4. Diabetic eye exam (HCC) - ICD9: V72.0, 250.00, ICD10: Z01.00, E11.9 - needs to get in with her eye doctor. 5. Essential hypertension, benign - ICD9: 401.1, ICD10: I10 - Uncontrolled - Continue current medications - Recommend home blood pressure monitoring, to bring results to next visit - Encouraged sodium restriction, DASH or Mediterranean diet - Recommend regular aerobic exercise - sounds better controlled at home. Will look at her BP reading when she sees endo on Wednesday 6. Hyperlipidemia, mixed - ICD9: 272.2, ICD10: E78.2 - Uncontrolled - Counseled on healthy diet and regular exercise - Discussed need for and benefit of weight loss. BMI 36.78 kg/(m^2) 7. Acquired hypothyroidism - ICD9: 244.9, ICD10: E03.9 - Instructed patient on importance of taking on an empty stomach either first thing in the morning or at bedtime. - continue current dose of Synthroid 8. Vitamin D deficiency - ICD9: 268.9, ICD10: E55.9 - controlled with replacement 9. Obesity, Class II, BMI 35-39.9 - ICD9: 278.00, ICD10: E66.9 - patient to work on weight loss. 10. Arthritis of both knees - ICD9: 716.96, ICD10: M17.0 - discussed seeing ortho ut patient prefers to cont with the tylenol arthritis twice a day. Did discuss the dosing of this as well. 11. Advance directive discussed with patient - ICD9: V65.49, ICD10: Z71.89 - up to date. F/u 4 months medicare wellness. I spent a total of 63 minutes on the date of the service which included preparing to see the patient, [id number] patient care, completing clinical documentation, performing a medically appropriate examination, counseling and educating the patient/family/caregiver and ordering medications, tests, or procedures. Micky Pendleton MD documented in this encounterC[facility]03-13-2024 Miscellaneous Notes* Telephone Encounter - Mackenzie Blanchard RN - 09/01/2023 4:08 PM EDT Patient calls and notified of results and providers instructions. Patient verbalizes understanding. Mackenzie Blanchard RN * Telephone Encounter - Eva Crisostomo LPN - 09/01/2023 9:30 AM EDT Left message for pt to contact office. Eva Crisostomo LPN * Telephone Encounter - Deisi Calle PA-C - 09/01/2023 8:06 AM EDT Let patient know that her kidney function is a little better. Continue with good hydration and avoid NSAIDs. Deisi Calle PA-C documented in this encounterCleveland Clinic Foundation02-27-2024 Miscellaneous Notes* Telephone Encounter - Micky Pendleton MD - 08/17/2023 4:56 PM EST The following approved medication requests have been transmitted electronically. Requested Prescriptions Signed Prescriptions Disp Refills glimepiride (AMARYL) 4 mg tablet 60 tablet 0 Sig: Take 1 tablet by mouth two times a day with meals. Authorizing Provider: MICKY PENDLETON hydrALAZINE (APRESOLINE) 25 mg tablet 360 tablet 1 Sig: Take 1 tablet by mouth four times daily. Authorizing Provider: MICKY PENDLETON MD * Telephone Encounter - Haleigh Rivera - 08/17/2023 4:26 PM EST Patient has been identified by name and date of : Patient phones for refill(s): Requested Prescriptions Pending Prescriptions Disp Refills glimepiride (AMARYL) 4 mg tablet 60 tablet 0 Sig: Take 1 tablet by mouth two times a day with meals. hydrALAZINE (APRESOLINE) 25 mg tablet 360 tablet 1 Sig: Take 1 tablet by mouth four times daily. Date of last office visit in primary care: 08/05/2023 Date of next office visit in primary care: 09/03/2023 Please advise. Thank you. Haleigh Rievra. documented in this encounterCleveland Clinic Foundation02-19-2024 Miscellaneous Notes* Telephone Encounter - Micky Pendleton MD - 08/09/2023 7:28 PM EST The following approved medication requests have been transmitted electronically. Requested Prescriptions Signed Prescriptions Disp Refills labetalol (TRANDATE) 100 mg tablet 240 tablet 0 Sig: Take 4 tablets by mouth two times a day. Authorizing Provider: MICKY PENDLETON MD * Telephone Encounter - Mariana Bustamante - 08/09/2023 3:42 PM EST Pharmacy verified in Epic Patient has been identified by name and date of : Yes Patient aware RX will be sent to pharmacy. No need to notify patient. Patient phones for refill(s): Requested Prescriptions Pending Prescriptions Disp Refills labetalol (TRANDATE) 100 mg tablet 240 tablet 0 Sig: Take 4 tablets by mouth two times a day. Date of last office visit : 08/05/2023 Date of next office visit : 09/03/2023 Last 2 Encounter Wt Readings: Date: Wt: 08/05/2023 78.9 kg (174 lb) 08/25/2022 80.3 kg (177 lb) Not applicable Please advise. Mariana Diaz Pss documented in this encounterCleveland Clinic Foundation02-15-2024 Instructions* Patient Instructions* Deisi Calle PA-C - 08/05/2023 1:42 PM EST Switch to tylenol arthritis. Follow up in [address] Pendleton Set up with endocrinology for Diabetes. Repeat labs in 1 month. Hydrate prior. documented in this encounterCleveland Clinic Foundation02-15-2024 History of Present illness Narrative* Deisi Calle PA-C - 08/05/2023 1:23 PM EST Chief Complaint Patient presents with: Medicare Wellness Exam HPI Chalino Arguelles is a 77 year old female who presents here today for extensive exam. Patient was scheduled for wellness exam but given results of labs, we need to focus on that today and have patient return for wellness. She reports that she hasn't been doing any exercising like she used to a couple years ago. Admits she doesn't drink a lot of water. Still taking about 1 advil per day. Sometimes 2. Past medical history, appointments, medications, allergies reviewed. Previous Medical History PAST MEDICAL HISTORY Diagnosis Date Acquired hypothyroidism 10/18/2013 Advance directive discussed with patient 11/14/2021 Discussed 10/2021 Arthritis of both knees 12/02/2021 Bilateral nonexudative age-related macular degeneration 03/31/2021 Dr. Mahan Chronic pain of right knee 11/14/2021 Diabetic eye exam (HCC) 04/01/2021 Last done. 09/03/2021. [facility]. Every 4-6 months Essential hypertension, benign Essential hypertension, benign 11/29/2014: Home BP Cuff Validated. Home BP: 141/80 76 Office BP: 151/88 73 Fibroadenosis of breast Hyperlipidemia associated with type 2 diabetes mellitus ([facility]) ([facility]) 11/15/2014 Hyperlipidemia LDL goal < 100 08/08/2013 Hypothyroidism 10/18/[address] 11/14/2021 DPA: ? 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 08/15/2012 Obesity, Class II, BMI 35-39.9 08/15/2012 Other and unspecified hyperlipidemia Other chronic pain 04/02/2021 Right knee pain 04/02/2021 Type 2 diabetes mellitus with microalbuminuria, without long-term current use of insulin ([facility]) ([facility]) 04/15/2016 Type 2 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dney disease ([facility]) 07/31/2015 Type II or unspecified type diabetes mellitus without mention of complication, not stated as uncontrolled Uncontrolled type 2 DM with microalbuminuria or microproteinuria 09/28/2012 Vitamin D deficiency 10/19/2013 Previous Surgical History PAST SURGICAL HISTORY Procedure Laterality Date STEREOTACTIC CORE BIOPSY 07/05/08 Family History FAMILY HISTORY Problem Relation Age of Onset Arthritis Mother Heart Father Heart Maternal Uncle Hypertension Sister Hypertension Brother Patient Allergies ALLERGIES Allergen Reactions Penicillins Rash Sulfa (Sulfonamide * Rash Hctz [Hydrochloroth* Unknown Jardiance [Empaglif* Itching vaginally Norvasc [Amlodipine* Other: See Comments Thinning of the hair Current Medications Current Outpatient Medications on File Prior to Visit Medication Sig glimepiride (AMARYL) 4 mg tablet Take 1 tablet by mouth two times a day with meals. furosemide (LASIX) 20 mg tablet Take 1 tablet by mouth once daily. levothyroxine (SYNTHROID) 75 mcg tablet Take 1 tablet by mouth once daily. Wed- Sat and two on Wednesday Take on empty stomach. For Thyroid lisinopril (ZESTRIL) 20 mg tablet Take 1 tablet by mouth two times a day. labetalol (TRANDATE) 100 mg tablet Take 4 tablets by mouth two times a day. metFORMIN (GLUCOPHAGE) 1,000 mg tablet Take 1 tablet by mouth two times a day with meals. hydrALAZINE (APRESOLINE) 25 mg tablet Take 1 tablet by mouth four times daily. blood sugar diagnostic (BLOOD GLUCOSE TEST) test strip Test blood sugar(s) 1 times daily. Dx: E11.22 Insulin: No Cholecalciferol, Vitamin D3, 1,000 unit cap Take 1 capsule by mouth once daily. Lancets lancets Test blood sugar(s) 1 times daily. Dx: E11.22 Insulin: No Blood-Glucose Meter, Drum-type (ACCU-CHEK COMPACT PLUS CARE) kit Dx.250.04 checks sugars once daily. No insulin No current facility-administered medications on file prior to visit. Social History Social History Tobacco Use Smoking status: Never Smokeless tobacco: Never Substance Use Topics Alcohol use: No Drug use: No Review of Symptoms REVIEW OF SYSTEMS GENERAL: No weight loss, malaise or fevers RESPIRATORY: Negative for cough, hemoptysis, wheezing, COPD, dyspnea or shortness of breath CARDIOVASCULAR: Negative for chest pain, leg swelling, hypertension, CHF or palpitations EXAM: BP 120/80 (BP Site: Left Arm, BP Position: Sitting, BP Cuff Size: Large Adult) Pulse 82 Temp 37.3 C (99.2 F) Resp 18 Ht 147.5 cm (4' 10.07") Wt 78.9 kg (174 lb) BMI 36.28 kg/m General Appearance: Well appearing, alert, in no acute distress, well-hydrated, well nourished.. Lungs: Lungs clear to auscultation. No wheezing, rhonchi, rales.. Heart: RRR without murmur, gallop, or rubs. No ectopy. Health Maintenance List DTaP,Tdap,Td Vaccine(1 - Tdap) Never done Shingrix Vaccine(1 of 2) Never done RSV Vaccine(1 - 1-dose 60+ series) Never done Dilated Retinal Exam due on 09/03/2022 Diabetic Foot Exam due on 11/14/2022 Influenza Vaccine(1) due on 02/19/2023 Covid-19 Vaccine( season) due on 02/19/2023 Advance Directive Discussion due on 06/21/2023 Depression Assessment due on 06/21/2023 Annual PCP Team Chronic Disease Visit due on 08/26/2023 BP Controlled (<130/80) due on 08/26/2023 HbA1C due on 10/31/2023 Urine Albumin:Creatinine Ratio due on 08/02/2024 LDL Cholesterol due on 08/02/2024 Bone Density Screening Completed Pneumococcal Vaccine: 65+ Completed Colorectal Cancer Screening Discontinued Data reviewed Component Latest Ref Rng & Units 08/02/2023 WBC 3.70 - 11.00 k/uL 10.50 RBC 3.90 - 5.20 m/uL 4.37 Hemoglobin 11.5 - 15.5 g/dL 12.5 Hematocrit 36.0 - 46.0 % 38.1 MCV 80.0 - 100.0 fL 87.2 MCH 26.0 - 34.0 pg 28.6 MCHC 30.5 - 36.0 g/dL 32.8 RDW-CV 11.5 - 15.0 % 12.3 Platelet Count 150 - 400 k/uL 266 MPV 9.0 - 12.7 fL 11.6 Neut% % 76.6 Abs Neut (ANC) 1.45 - 7.50 k/uL 8.05 (H) Lymph% % 15.8 Abs Lymph 1.00 - 4.00 k/uL 1.66 [place]% % 5.4 Abs [place] <0.87 k/uL 0.57 Eosin% % 0.9 Abs Eosin <0.46 k/uL 0.09 Baso% % 0.8 Abs Baso <0.11 k/uL 0.08 Immature Gran % % 0.5 IMMATURE GRANS (ABS) <0.10 k/uL 0.05 NRBC /100 WBC 0.0 Absolute nRBC <0.01 k/uL <0.01 DTYPE Auto Color Yellow Yellow Clarity Clear Clear Glucose, Urine Negative 1+ (A) Bilirubin, Urine Negative Negative Ketones, Urine Negative Negative Specific [place], Ur 1.005 - 1.030 1.012 Hemoglobin/Blood,Ur Negative Negative pH, Urine <8.5 6.0 Protein, Urine Negative Trace (A) Urobilinogen 0.2-1.0 EU/dL 0.2 EU/dL Nitrites Negative Negative Leukest Negative Negative WBC, Urine 0-5 /HPF 0-5 /HPF RBC, Urine 0-2 /HPF 0-2 /HPF Bacteria Negative /HPF Negative Epithelial Cells /HPF None Seen Hyaline Cast 0 /LPF 1-3 /LPF (A) Protein, Total 6.3 - 8.0 g/dL 6.6 Albumin 3.9 - 4.9 g/dL 4.3 Calcium 8.5 - 10.2 mg/dL 9.7 Bilirubin, Total 0.2 - 1.3 mg/dL 0.4 Alkaline Phosphatase 34 - 123 U/L 62 AST 13 - 35 U/L 18 ALT 7 - 38 U/L 13 Glucose 74 - 99 mg/dL 348 (H) BUN 7 - 21 mg/dL 26 (H) Creatinine 0.58 - 0.96 mg/dL 1.18 (H) Sodium 136 - 144 mmol/L 134 (L) Potassium 3.7 - 5.1 mmol/L 4.1 Chloride 97 - 105 mmol/L 92 (L) CO2 22 - 30 mmol/L 28 Anion Gap 9 - 18 mmol/L 14 eGFR >=60 mL/min/1.73m 47 (L) Total Cholesterol, Nonfasting <200 mg/dL 195 Triglycerides, Nonfasting <150 mg/dL 225 (H) HDL Cholesterol, Nonfasting >39 mg/dL 42 LDL Cholesterol, Nonfasting <100 mg/dL 108 (H) Non HDL Cholesterol, Nonfasting <130 mg/dL 153 (H) VLDL Cholesterol, Nonfasting <30 mg/dL 45 (H) Total Chol/HDL Ratio, Nonfasting <5.10 mg/dL 4.64 LDL/HDL Ratio, Nonfasting <2.54 mg/dL 2.57 (H) Creatinine, Ur Random (UCRR) 20.0 - 300.0 mg/dL 56.1 Albumin, Urine Random mg/L 82.1 Albumin/Creat Ratio <30 mg/g 146 (H) Hemoglobin A1C 4.3 - 5.6 % 10.6 (H) Estimated Average Glucose mg/dL 258 Vitamin D 25 Hydroxy 31.0 - 80.0 ng/mL 37.3 TSH 0.270 - 4.200 mIU/L 3.730 ASSESSMENT/PLAN: 1. Type 2 diabetes mellitus with microalbuminuria, without long-term current use of insulin (HCC) (HCC) - ICD9: 250.40, 791.0, ICD10: E11.29, R80.9 (primary diagnosis) - Uncontrolled Noncompliant. Patient now willing to see endocrinology after a lengthy conversation - CONSULT TO ENDOCRINOLOGY 2. BENIGN HYPERTENSION - ICD9: 401.1, ICD10: I10 - Controlled - FUROSEMIDE 20 MG TABLET 3. Hyperlipidemia, mixed - ICD9: 272.2, ICD10: E78.2 - fairly well Controlled. Like to see LDL under 100. 4. Acquired hypothyroidism - ICD9: 244.9, ICD10: E03.9 - Instructed patient on importance of taking on an empty stomach either first thing in the morning or at bedtime. 5. Encounter for immunization - ICD9: V03.89, ICD10: Z23 - INFLUENZA VACCINE, PRSV FREE, AGE 65+ YR, HIGH DOSE, QUADRIVALENT (FLUZONE HIGH-DOSE) 6. 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 Vitamin D deficiency - ICD9: 268.9, ICD10: E55.9 8. Stage 3a chronic kidney disease (HCC) - ICD9: 585.3, ICD10: N18.31 - eGFR: 47 Worsening - Counseled on avoiding NSAIDs, adequate hydration - BASIC METABOLIC PNL Deisi Calle PA-C I spent a total of 45 minutes on the date of the service which included preparing to see the patient, [id number] patient care, completing clinical documentation, obtaining and/or reviewing separately obtained history, performing a medically appropriate examination, counseling and educating the pat ient/family/caregiver, ordering medications, tests, or procedures, and communicating results to thepatient/family/caregiver. documented in this encounterCleveland Clinic Foundation11-09-2023 Miscellaneous Notes* Telephone Encounter - Lynn Romero - 04/29/2023 3:32 PM EST Patient only wants 30 day supply of all 3 medications. Said she will see Dr. Pendleton in May to discuss and dosage changes. * Telephone Encounter - Lynn Romero - 04/29/2023 3:31 PM EST Patient has been identified by name and date of : Yes Requested Prescriptions Pending Prescriptions Disp Refills furosemide (LASIX) 20 mg tablet 30 tablet 0 Sig: Take 1 tablet by mouth once daily. glimepiride (AMARYL) 4 mg tablet 60 tablet 0 Sig: Take 1 tablet by mouth two times a day with meals. lisinopril (ZESTRIL) 20 mg tablet Sig: Take 1 tablet by mouth two times a day. RX INSTRUCTIONS: Patient aware RX will be sent to pharmacy. No need to notify patient. Lynn Hoffman documented in this encounterCleveland Clinic Foundation10-27-2023 Miscellaneous Notes* Telephone Encounter - Elida Ramirez Ma - 04/16/2023 2:40 PM EDT Patient last visit with PCP 08/25/22 Follow up appointment scheduled 05/21/23 Elida Ramirez Ma * Telephone Encounter - Laila Infante - 04/16/2023 2:24 PM EDT Patient has been identified by name and date of : Yes Requested Prescriptions Pending Prescriptions Disp Refills metFORMIN (GLUCOPHAGE) 1,000 mg tablet 180 tablet 1 Sig: Take 1 tablet by mouth two times a day with meals. hydrALAZINE (APRESOLINE) 25 mg tablet 360 tablet 1 Sig: Take 1 tablet by mouth four times daily. RX INSTRUCTIONS: Patient aware RX will be sent to pharmacy. No need to notify patient. Laila Infante documented in this encounterCleveland Clinic Foundation08-28-2023 Miscellaneous Notes* Telephone Encounter - Tiff Reno MA - 02/15/2023 11:31 AM EDT Contacted pharmacy and patient still has refills. Left message for patient that prescription at the pharmacy Tiff Reno MA * Telephone Encounter - Delphine Hector - 02/12/2023 4:27 PM EDT Patient has been identified by name and date of : Yes Last office visit in this department: Visit date not found RX INSTRUCTIONS: Patient aware RX will be sent to pharmacy. No need to notify patient. Patient phones requesting refills as follows: Patient only has enough for tomorrow. Requested Prescriptions Pending Prescriptions Disp Refills labetalol (TRANDATE) 100 mg tablet 720 tablet 1 Sig: Take 4 tablets by mouth twice daily. Please review and advise. Delphine Hoffman documented in this encounterCleveland Clinic Foundation05-31-2023 Miscellaneous Notes* Telephone Encounter - Micky Pendleton MD - 11/18/2022 7:56 PM EDT The following approved medication requests have been transmitted electronically. Requested Prescriptions Signed Prescriptions Disp Refills glimepiride (AMARYL) 4 mg tablet 60 tablet 5 Sig: Take 1 tablet by mouth twice daily with meals. Authorizing Provider: MICKY PENDLETON levothyroxine (SYNTHROID) 75 mcg tablet 102 tablet 1 Sig: Take 1 tablet by mouth once daily. Mon-Wed and two on Wednesday Take on empty stomach. For Thyroid Authorizing Provider: MICKY PENDLETON MD * Telephone Encounter - Elida Ramirez Ma - 11/18/2022 4:16 PM EDT Patient last visit with PCP 08/25/22 Follow up appointment scheduled 01/21/23 Elida Ramirez Ma * Telephone Encounter - Mariana Hoffman - 11/18/2022 4:03 PM EDT Pharmacy verified in [facility] Patient has been identified by name and date of : Yes Patient aware RX will be sent to pharmacy. No need to notify patient. Patient phones for refill(s): Requested Prescriptions Pending Prescriptions Disp Refills glimepiride (AMARYL) 4 mg tablet 60 tablet 5 Sig: Take 1 tablet by mouth twice daily with meals. levothyroxine (SYNTHROID) 75 mcg tablet 102 tablet 1 Sig: Take 1 tablet by mouth once daily. Mon-Sat and two on Wednesday Take on empty stomach. For Thyroid Date of last office visit : 08/25/2022 Date of next office visit : 01/21/2023 Last 2 Encounter Wt Readings: Date: Wt: 08/25/2022 80.3 kg (177 lb) 05/05/2022 79.8 kg (176 lb) Not applicable Please advise. Mariana Diaz Pss documented in this encounterCleveland Clinic Foundation04-26-2023 Miscellaneous Notes* Telephone Encounter - Micky Pendleton MD - 10/14/2022 8:45 PM EDT The following approved medication requests have been transmitted electronically. Requested Prescriptions Signed Prescriptions Disp Refills metFORMIN (GLUCOPHAGE) 1,000 mg tablet 180 tablet 1 Sig: Take 1 tablet by mouth twice daily with meals. Authorizing Provider: MICKY PENDLETON MD * Telephone Encounter - Lynn Damico Pss - 10/14/2022 3:42 PM EDT Patient has been identified by name and date of : Yes Requested Prescriptions Pending Prescriptions Disp Refills metFORMIN (GLUCOPHAGE) 1,000 mg tablet 180 tablet 1 Sig: Take 1 tablet by mouth twice daily with meals. DEREK-08/25/22 Labs-08/21/22 NOV-11/12/22 med filled 04/13/22 RX INSTRUCTIONS: Patient aware RX will be sent to pharmacy. No need to notify patient. Lynn Damico Pss documented in this encounterCleveland Clinic Foundation03-07-2023 History of Present illness Narrative* Christy Angeles LPN - 08/25/2022 2:34 PM EST Repeat BP Check: BP Rossi 144/86 P81 #1 141/82 P83 #2 129/79 P81 #3 124/76 P81 #4 119/74 P81 #5 118/66 P81 #6 BP Rossi Average: 126/75 Pulse: 81 Christy Angeles LPN * Deisi Calle PA-C - 08/25/2022 1:46 PM EST Chief Complaint Patient presents with: Follow Up: 3 month FU HPI Chalino Arguelles is a 76 year old female who presents here today for Chronic Medical Conditions.. Patient with hx of uncontrolled DM2, hyperlipidemia, HTN, hypothyroid, arthritis, obesity, vit D def and those as below. Patient states she has been trying to changing her eating habits and her activity but notes it is not helping. She has been hesitant to start new meds. States she previously was able to keep it controlled just with diet and exercise so she is frustrated. Last 3 Encounter BP Readings: Date: BP: 08/25/2022 146/90 05/05/2022 134/81[bp rossi average[ 01/14/2022 123/76 Past medical history, appointments, medications, allergies reviewed. Previous Medical History PAST MEDICAL HISTORY Diagnosis Date Acquired hypothyroidism 10/18/2013 Advance directive discussed with patient 11/14/2021 Discussed 10/2021 Arthritis of both knees 12/02/2021 Bilateral nonexudative age-related macular degeneration 03/31/2021 Dr. Mahan Chronic pain of right knee 11/14/2021 Diabetic eye exam (HCC) 04/01/2021 Last done. 09/03/2021. [facility]. Every 4-6 months Essential hypertension, benign Essential hypertension, benign 11/29/2014: Home BP Cuff Validated. Home BP: 141/80 76 Office BP: 151/88 73 Fibroadenosis of breast Hyperlipidemia associated with type 2 diabetes mellitus (HCC) 11/15/2014 Hyperlipidemia LDL goal < 100 08/08/2013 Hypothyroidism 10/18/[address] 11/14/2021 DPA: ? 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 08/15/2012 Obesity, Class II, BMI 35-39.9 08/15/2012 Other and unspecified hyperlipidemia Other chronic pain 04/02/2021 Right knee pain 04/02/2021 Type 2 diabetes mellitus with microalbuminuria, without long-term current use of insulin ([facility]) 04/15/2016 Type 2 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dney disease ([facility]) 07/31/2015 Type II or unspecified type diabetes mellitus without mention of complication, not stated as uncontrolled Uncontrolled type 2 DM with microalbuminuria or microproteinuria 09/28/2012 Vitamin D deficiency 10/19/2013 Previous Surgical History PAST SURGICAL HISTORY Procedure Laterality Date STEREOTACTIC CORE BIOPSY 07/05/08 Family History FAMILY HISTORY Problem Relation Age of Onset Arthritis Mother Heart Father Heart Maternal Uncle Hypertension Sister Hypertension Brother Patient Allergies ALLERGIES Allergen Reactions Penicillins Rash Sulfa (Sulfonamide * Rash Hctz [Other] Unknown Jardiance [Empaglif* Itching vaginally Norvasc [Amlodipine* Other: See Comments Thinning of the hair Current Medications Current Outpatient Medications on File Prior to Visit Medication Sig hydrALAZINE (APRESOLINE) 25 mg tablet Take 1 tablet by mouth four times daily. labetalol (TRANDATE) 100 mg tablet Take 4 tablets by mouth twice daily. levothyroxine (SYNTHROID) 75 mcg tablet Take 1 tablet by mouth once daily. Wed- Wed and two on Wednesday Take on empty stomach. For Thyroid glimepiride (AMARYL) 4 mg tablet Take 1 tablet by mouth twice daily with meals. furosemide (LASIX) 20 mg tablet Take 1 tablet by mouth once daily. metFORMIN (GLUCOPHAGE) 1,000 mg tablet Take 1 tablet by mouth twice daily with meals. blood sugar diagnostic (BLOOD GLUCOSE TEST) test strip Test blood sugar(s) 1 times daily. Dx: E11.22 Insulin: No Cholecalciferol, Vitamin D3, 1,000 unit cap Take 1 capsule by mouth once daily. Blood-Glucose Meter, Drum-type (ACCU-CHEK COMPACT PLUS CARE) kit Dx.250.04 checks sugars once daily. No insulin Lancets lancets Test blood sugar(s) 1 times daily. Dx: E11.22 Insulin: No No current facility-administered medications on file prior to visit. Social History Social History Tobacco Use Smoking status: Never Smokeless tobacco: Never Substance Use Topics Alcohol use: No Drug use: No Review of Symptoms REVIEW OF SYSTEMS GENERAL: No weight loss, malaise or fevers NECK: Negative for lumps, goiter, pain and significant neck swelling RESPIRATORY: Negative for cough, hemoptysis, wheezing, COPD, dyspnea or shortness of breath CARDIOVASCULAR: Negative for chest pain, leg swelling, hypertension, CHF or palpitations NEURO: No history of headaches, syncope, paralysis, seizures or tremors EXAM: BP 146/90 Pulse 72 Resp 18 Wt 80.3 kg (177 lb) SpO2 98% BMI 35.45 kg/m BP 126/75 Pulse 81 Resp 18 Wt 80.3 kg (177 lb) SpO2 98% BMI 35.45 kg/m General Appearance: Well appearing, alert, in no acute distress, well-hydrated, well nourished.. Neck: Supple, no adenopathy; thyroid symmetric, normal size, no bruits. Lungs: Lungs clear to auscultation. No wheezing, rhonchi, rales.. Heart: RRR without murmur, gallop, or rubs. No ectopy. Extremities: mild edema noted. +varicose veins that are mildly tender. No erythema. Peripheral Pulses: Normal. Health Maintenance List BP CONTROLLED (<130/80) due on 01/07/2020 ADVANCE DIRECTIVE DISCUSSION due on 06/21/2022 DEPRESSION ASSESSMENT due on 06/21/2022 DILATED RETINAL EXAM due on 09/03/2022 DTAP,TDAP,TD(1 - Tdap) due on 11/14/2022 SHINGRIX VACCINE(1 of 2) due on 11/14/2022 URINE ALBUMIN:CREATININE RATIO due on 11/11/2022 DIABETIC FOOT EXAM due on 11/14/2022 HBA1C due on 11/21/2022 ANNUAL PCP TEAM CHRONIC DISEASE VISIT due on 05/05/2023 LDL CHOLESTEROL due on 08/22/2023 BONE DENSITY Completed INFLUENZA Completed COVID-19 VACCINE Completed PNEUMOCOCCAL: 65+ Completed HEPATITIS C SCREENING Discontinued Data reviewed Component Latest Ref Rng & Units 05/01/2022 08/21/2022 Color Yellow Light Yellow Clarity Clear Clear Glucose, Urine Trace, Negative 2+ (A) Bilirubin, Urine Negative Negative Ketones, Urine Trace, Negative Negative Specific [place], Ur 1.005 - 1.030 1.010 Hemoglobin/Blood,Ur Negative, Trace Negative pH, Urine 5.0 - 8.0 6.0 Protein, Urine Trace, Negative Trace Urobilinogen Negative Negative Nitrites Negative Negative Leukest Negative, 25 Noemy/uL 25 Noemy/uL WBC, Urine 0-5 /HPF 0-5 /HPF RBC, Urine 0-3 /HPF 0-3 /HPF Hyaline Cast 0 /LPF 1-3 /LPF (A) Glucose 74 - 99 mg/dL 292 (H) BUN 7 - 21 mg/dL 23 (H) Creatinine 0.58 - 0.96 mg/dL 0.99 (H) Sodium 136 - 144 mmol/L 136 Potassium 3.7 - 5.1 mmol/L 4.1 Chloride 97 - 105 mmol/L 97 CO2 22 - 30 mmol/L 26 Anion Gap 9 - 18 mmol/L 13 Calcium 8.5 - 10.2 mg/dL 10.2 eGFR >=60 mL/min/1.73m 58 (L) Total Cholesterol, Nonfasting <200 mg/dL 196 202 (H) Triglycerides, Nonfasting <150 mg/dL 224 (H) 214 (H) HDL Cholesterol, Nonfasting >39 mg/dL 43 46 LDL Cholesterol, Nonfasting <100 mg/dL 108 (H) 113 (H) Non HDL Cholesterol, Nonfasting <130 mg/dL 153 (H) 156 (H) VLDL Cholesterol, Nonfasting <30 mg/dL 45 (H) 43 (H) Total Chol/HDL Ratio, Nonfasting <5.10 mg/dL 4.56 4.39 LDL/HDL Ratio, Nonfasting <2.54 mg/dL 2.51 2.46 Hemoglobin A1C 4.3 - 5.6 % 9.9 (H) 10.2 (H) Estimated Average Glucose mg/dL 237 246 TSH 0.270 - 4.200 mIU/L 1.790 3.210 ASSESSMENT/PLAN: 1. Type 2 diabetes mellitus with microalbuminuria, without long-term current use of insulin (HCC) -ICD9: 250.40, 791.0, ICD10: E11.29, R80.9 (primary diagnosis) - Worsening control - Continue current medications - Referral to Endocrinology for further diabetes management - patient is still hesitant for me to make medication changes. Will set up with endo. - CONSULT TO ENDOCRINOLOGY - COMP METABOLIC PANEL - HGB A1C - URINALYSIS, WITH MICROSCOPIC - ALBUMIN/CREAT RATIO RND UR 2. 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 Acquired hypothyroidism - ICD9: 244.9, ICD10: E03.9 - Instructed patient on importance of taking on an empty stomach either first thing in the morning or at bedtime. - continue current dose of Synthroid - TSH BLD 4. Hyperlipidemia, mixed - ICD9: 272.2, ICD10: E78.2 - suboptimal control - Continue current medication. - Encouraged following a low fat, low cholesterol diet. - Encouraged following a low carbohydrate, healthy oil intake diet. - Continue current therapy. - LIPID PANEL, NONFASTING 5. Essential hypertension, benign - ICD9: 401.1, ICD10: I10 - good control - Continue current medication(s) - Recommended regular aerobic exercise. - Recommend home blood pressure monitoring, to bring results in on next visit - Goal of BP <130/80 6. Vitamin D deficiency - ICD9: 268.9, ICD10: E55.9 - COMP METABOLIC PANEL - VITAMIN D 25 HYDROXY 7. Arthritis of both knees - ICD9: 716.96, ICD10: M17.0 Discussed with patient that use of NSAIDs will need to be monitored however at this time, okay to continue ibuprofen 200mg for her arthritis. Will check kidney function with next set up labs. If still mildly decreased or worsening, may need to consider a different tx option. Advised to push fluids to help prevent renal disease. Deisi Calle PA-C documented in this encounterCleveland Clinic Foundation03-07-2023 Miscellaneous Notes* Telephone Encounter - Kathy Forrester RN - 08/25/2022 11:41 AM EST Pt called in asking for lab results. She wanted to be ready for her appointment today. Gave Pt labsas asked. documented in this encounterCleveland Clinic Foundation01-24-2023 Miscellaneous Notes* Telephone Encounter - Micky Pendleton MD - 07/14/2022 2:12 PM EST The following approved medication requests have been transmitted electronically. Requested Prescriptions Signed Prescriptions Disp Refills hydrALAZINE (APRESOLINE) 25 mg tablet 360 tablet 1 Sig: Take 1 tablet by mouth four times daily. Authorizing Provider: MICKY PENDLETON MD * Telephone Encounter - Sarah Ramirez [facility] - 07/14/2022 1:47 PM EST Patient has been identified by name and date of : Yes Requested Prescriptions Pending Prescriptions Disp Refills hydrALAZINE (APRESOLINE) 25 mg tablet 360 tablet 1 Sig: Take 1 tablet by mouth four times daily. RX INSTRUCTIONS: Patient aware RX will be sent to pharmacy. No need to notify patient. Sarah Ramirez [facility] documented in this encounterCleveland Clinic Foundation01-20-2023 Miscellaneous Notes* Telephone Encounter - Micky Pendleton MD - 07/10/2022 4:27 PM EST The following approved medication requests have been transmitted electronically. Requested Prescriptions Signed Prescriptions Disp Refills labetalol (TRANDATE) 100 mg tablet 720 tablet 1 Sig: Take 4 tablets by mouth twice daily. Authorizing Provider: MICKY PENDLETON MD * Telephone Encounter - Elida Ramirez Ma - 07/10/2022 3:57 PM EST Patient last visit 05/05/22 Follow up appointment scheduled 08/05/22 Elida Ramirez Ma * Telephone Encounter - Sarah Ramirez [facility] - 07/10/2022 3:27 PM EST Patient has been identified by name and date of : Yes Requested Prescriptions Pending Prescriptions Disp Refills labetalol (TRANDATE) 100 mg tablet 720 tablet 1 Sig: Take 4 tablets by mouth twice daily. RX INSTRUCTIONS: Patient requested 90 days - please send today Patient aware RX will be sent to pharmacy. No need to notify patient. Sarah Ramirez Pss documented in this encounterCleveland Clinic Foundation12-21-2022 Miscellaneous Notes* Telephone Encounter - Micky Pendleton MD - 06/10/2022 3:39 PM EST The following approved medication requests have been transmitted electronically. Requested Prescriptions Signed Prescriptions Disp Refills levothyroxine (SYNTHROID) 75 mcg tablet 102 tablet 1 Sig: Take 1 tablet by mouth once daily. Mon-Sat and two on Wednesday Take on empty stomach. For Thyroid Authorizing Provider: MICKY PENDLETON MD * Telephone Encounter - Tiff Reno MA - 06/10/2022 2:09 PM EST Patient has been identified by name and date of : Yes Requested Prescriptions Pending Prescriptions Disp Refills levothyroxine (SYNTHROID) 75 mcg tablet 90 tablet 0 Sig: Take 1 tablet by mouth once daily. Mon-Sat and two on Wednesday Take on empty stomach. For Thyroid RX INSTRUCTIONS: Patient aware RX will be sent to pharmacy. No need to notify patient. Tiff Reno MA Derek: 04/2022 Nov: 07/2022 Last refill; 03/2022 * Telephone Encounter - Hope Ortiz - 06/10/2022 1:56 PM EST Patient has been identified by name and date of : Yes Patient phones for refill(s): Requested Prescriptions Pending Prescriptions Disp Refills levothyroxine (SYNTHROID) 75 mcg tablet 90 tablet 0 Sig: Take 1 tablet by mouth once daily. Mon-Sat and two on Wednesday Take on empty stomach. For Thyroid Date of last office visit in primary care: 05/05/22 Last 2 Encounter Wt Readings: Date: Wt: 05/05/2022 79.8 kg (176 lb) 01/05/2022 80.1 kg (176 lb 8 oz) Previous labs/tests for medication: Not applicable Please advise. Thank you. Hope Ortiz documented in this encounterCleveland Clinic Foundation11-28-2022 Miscellaneous Notes* Telephone Encounter - Kathy Maxx Pss - 05/18/2022 3:01 PM EST Patient has been identified by name and date of : Yes Requested Prescriptions Pending Prescriptions Disp Refills glimepiride (AMARYL) 4 mg tablet 60 tablet 5 Sig: Take 1 tablet by mouth twice daily with meals. DEREK-05/05/22 Labs-05/01/22 NOV-08/05/22 med filled 11/14/21 RX INSTRUCTIONS: patient completely out for later today Patient aware RX will be sent to pharmacy. No need to notify patient. Kathy Frenchoran Pss documented in this encounterCleveland Clinic Foundation11-09-2022 Miscellaneous Notes* Telephone Encounter - Delphine Mendoza Pss - 04/29/2022 2:51 PM EST Patient has been identified by name and date of : Yes Last office visit in this department: 11/14/21 Labs-01/14/22 NOV-05/05/22 RX INSTRUCTIONS: Patient aware RX will be sent to pharmacy. No need to notify patient. Patient phones requesting refills as follows: Requested Prescriptions Pending Prescriptions Disp Refills lisinopril (ZESTRIL, PRINIVIL) 20 mg tablet 180 tablet 1 Sig: Take 1 tablet by mouth twice daily. Please review and advise. Delphine Mendoza Pss documented in this encounterCleveland Clinic Foundation10-24-2022 Miscellaneous Notes* Telephone Encounter - Micky Pendleton MD - 04/13/2022 4:30 PM EDT The following approved medication requests have been transmitted electronically. Requested Prescriptions Signed Prescriptions Disp Refills metFORMIN (GLUCOPHAGE) 1,000 mg tablet 180 tablet 1 Sig: Take 1 tablet by mouth twice daily with meals. Authorizing Provider: MICKY PENDLETON MD * Telephone Encounter - Tiff Reno MA - 04/13/2022 3:07 PM EDT Patient has been identified by name and date of : Yes Requested Prescriptions Pending Prescriptions Disp Refills metFORMIN (GLUCOPHAGE) 1,000 mg tablet 180 tablet 1 Sig: Take 1 tablet by mouth twice daily with meals. RX INSTRUCTIONS: Patient aware RX will be sent to pharmacy. No need to notify patient. Tiff Reno MA Derek: 10/2021 Nov: 04/2022 Last refill; 09/2021 * Telephone Encounter - Haleigh Rivera - 04/13/2022 2:28 PM EDT Patient has been identified by name and date of : Yes Requested Prescriptions Pending Prescriptions Disp Refills metFORMIN (GLUCOPHAGE) 1,000 mg tablet 180 tablet 1 Sig: Take 1 tablet by mouth twice daily with meals. RX INSTRUCTIONS: Patient aware RX will be sent to pharmacy. No need to notify patient. Haleigh Rivera documented in this encounterCleveland Clinic Foundation10-18-2022 Miscellaneous Notes* Telephone Encounter - Debbie Bullard LPN - 04/07/2022 4:04 PM EDT Spoke with pt and information listed below given. Pt verbalizes understanding. Pt will call back tomorrow to reschedule apt. Debbie Bullard LPN * Telephone Encounter - Eva Crisostomo LPN - 03/31/2022 10:52 AM EDT Left message for pt to contact office. Eva Crisostomo LPN * Telephone Encounter - Deisi Calle PA-C -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 need to notify patient. Lauren Govea Pss documented in this [facility]04-28-2022 Miscellaneous Notes* Telephone Encounter - Micky Pendleton MD - 10/16/2021 4:20 PM EDT The following approved medication requests have been transmitted electronically. Signed Prescriptions Disp Refills levothyroxine (SYNTHROID) 75 mcg tablet 90 tablet 1 Sig: Take 1 tablet by mouth once daily. Take on empty stomach. For Thyroid EZRA: No Authorizing Provider: MICKY PENDLETON metFORMIN (GLUCOPHAGE) 1,000 mg tablet 180 tablet 1 Sig: Take 1 tablet by mouth twice daily with meals. EZRA: No Authorizing Provider: MICKY PENDLETON MD * Telephone Encounter - Mariana Diaz Pss - 10/16/2021 2:59 PM EDT Pharmacy verified in [facility] Patient has been identified by name and date of : Yes Patient aware RX will be sent to pharmacy. No need to notify patient. Patient phones for refill(s): Pending Prescriptions Disp Refills LEVOTHYROXINE 75 MCG TABLET 90 tablet 1 Sig: Take 1 tablet by mouth once daily. Take on empty stomach. For Thyroid EZRA: No METFORMIN 1,000 MG TABLET 60 tablet 5 Sig: Take 1 tablet by mouth twice daily with meals. EZRA: No Date of last office visit : 03/31/2021 Date of next office visit : 11/14/2021 Last 2 Encounter Wt Readings: Date: Wt: 03/31/2021 79.4 kg (175 lb) 05/20/2020 78.9 kg (174 lb) Please advise. Mariana Diaz Pss documented in this encounterC[facility]03-25-2022 Miscellaneous Notes* Telephone Encounter - Micky Pendleton MD - 09/12/2021 4:56 PM EDT The following approved medication requests have been transmitted electronically. Signed Prescriptions Disp Refills glimepiride (AMARYL) 4 mg tablet 30 tablet 5 Sig: Take 1 tablet by mouth daily with breakfast. EZRA: No Authorizing Provider: MICKY PENDLETON MD * Telephone Encounter - Elida Ramirez Ma - 09/12/2021 4:18 PM EDT Patient last visit with PCP 03/31/2021 Follow up appointment scheduled 09/26/21 Elida Ramirez Ma * Telephone Encounter - Mariana Diaz Pss - 09/12/2021 3:30 PM EDT Pharmacy verified in [facility] Patient has been identified by name and date of : Yes Patient aware RX will be sent to pharmacy. No need to notify patient. Patient phones for refill(s): Pending Prescriptions Disp Refills GLIMEPIRIDE 4 MG TABLET 30 tablet 5 Sig: Take 1 tablet by mouth daily with breakfast. EZRA: No Date of last office visit : 03/31/2021 Date of next office visit : 09/26/2021 Last 2 Encounter Wt Readings: Date: Wt: 03/31/2021 79.4 kg (175 lb) 05/20/2020 78.9 kg (174 lb) Please advise. 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 dney disease 07/31/2015 04/15/2016 Uncontrolled type 2 DM with microalbuminuria or microproteinuria 09/28/2012 10/18/2013 Type II or unspecified type diabetes mellitus without mention of complication, not stated as uncontrolled documented as of this encounter (statuses as of 09/12/2021) [facility] of [facility] illness Narrative* Problem Noted Date Resolved Date 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/15/2016 Type 2 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 dney disease 07/31/2015 04/15/2016 Uncontrolled type 2 DM with microalbuminuria or microproteinuria 09/28/2012 10/18/2013 Type II or unspecified type diabetes mellitus without mention of complication, not stated as uncontrolled documented as of this encounter (statuses as of 10/16/2021) [facility] of [facility] illness Narrative* Problem Noted Date Resolved Date 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/15/2016 Type 2 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 dney disease 07/31/2015 04/15/2016 Uncontrolled type 2 DM with microalbuminuria or microproteinuria 09/28/2012 10/18/2013 Type II or unspecified type diabetes mellitus without mention of complication, not stated as uncontrolled documented as of this encounter (statuses as of 10/31/2021) [facility] of [facility] illness Narrative* Problem Noted Date Resolved Date 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/15/2016 Type 2 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 dney disease 07/31/2015 04/15/2016 Uncontrolled type 2 DM with microalbuminuria or microproteinuria 09/28/2012 10/18/2013 Type II or unspecified type diabetes mellitus without mention of complication, not stated as uncontrolled documented as of this encounter (statuses as of 11/10/2021) [facility] illness Narrative* Problem Noted Date Resolved Date 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/15/2016 Type 2 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 dney disease 07/31/2015 04/15/2016 Uncontrolled type 2 DM with microalbuminuria or microproteinuria 09/28/2012 10/18/2013 Type II or unspecified type diabetes mellitus without mention of complication, not stated as uncontrolled documented as of this encounter (statuses as of 11/14/2021) [facility] illness Narrative* Problem Noted Date Resolved Date 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/15/2016 Type 2 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 dney disease 07/31/2015 04/15/2016 Uncontrolled type 2 DM with microalbuminuria or microproteinuria 09/28/2012 10/18/2013 Type II or unspecified type diabetes mellitus without mention of complication, not stated as uncontrolled documented as of this encounter (statuses as of 11/15/2021) [facility] illness Narrative* Problem Noted Date Resolved Date 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/15/2016 Type 2 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 dney disease 07/31/2015 04/15/2016 Uncontrolled type 2 DM with microalbuminuria or microproteinuria 09/28/2012 10/18/2013 Type II or unspecified type diabetes mellitus without mention of complication, not stated as uncontrolled documented as of this encounter (statuses as of 12/02/2021) [facility] illness Narrative* Problem Noted Date Resolved Date 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/15/2016 Type 2 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 dney disease 07/31/2015 04/15/2016 Uncontrolled type 2 DM with microalbuminuria or microproteinuria 09/28/2012 10/18/2013 Type II or unspecified type diabetes mellitus without mention of complication, not stated as uncontrolled documented as of this encounter (statuses as of 12/18/2021) [facility] illness Narrative* Problem Noted Date Resolved Date 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/15/2016 Type 2 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 dney disease 07/31/2015 04/15/2016 Uncontrolled type 2 DM with microalbuminuria or microproteinuria 09/28/2012 10/18/2013 Type II or unspecified type diabetes mellitus without mention of complication, not stated as uncontrolled documented as of this encounter (statuses as of 12/23/2021) [facility] Narrative* Problem Noted Date Resolved Date 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/15/2016 Type 2 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 dney disease 07/31/2015 04/15/2016 Uncontrolled type 2 DM with microalbuminuria or microproteinuria 09/28/2012 10/18/2013 Type II or unspecified type diabetes mellitus without mention of complication, not stated as uncontrolled documented as of this encounter (statuses as of 12/24/2021) [facility] Narrative* Problem Noted Date Resolved Date 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/15/2016 Type 2 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 dney disease 07/31/2015 04/15/2016 Uncontrolled type 2 DM with microalbuminuria or microproteinuria 09/28/2012 10/18/2013 Type II or unspecified type diabetes mellitus without mention of complication, not stated as uncontrolled documented as of this encounter (statuses as of 12/25/2021) [facility] Narrative* Problem Noted Date Resolved Date 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/15/2016 Type 2 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 dney disease 07/31/2015 04/15/2016 Uncontrolled type 2 DM with microalbuminuria or microproteinuria 09/28/2012 10/18/2013 Type II or unspecified type diabetes mellitus without mention of complication, not stated as uncontrolled documented as of this encounter (statuses as of 01/14/2022) [facility] Narrative* Problem Noted Date Resolved Date 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/15/2016 Type 2 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 dney disease 07/31/2015 04/15/2016 Uncontrolled type 2 DM with microalbuminuria or microproteinuria 09/28/2012 10/18/2013 Type II or unspecified type diabetes mellitus without mention of complication, not stated as uncontrolled documented as of this encounter (statuses as of 01/14/2022) [facility] Narrative* Problem Noted Date Resolved Date 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/15/2016 Type 2 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 dney disease 07/31/2015 04/15/2016 Uncontrolled type 2 DM with microalbuminuria or microproteinuria 09/28/2012 10/18/2013 Type II or unspecified type diabetes mellitus without mention of complication, not stated as uncontrolled documented as of this encounter (statuses as of 04/07/2022) [facility] Narrative* Problem Noted Date Resolved Date 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/15/2016 Type 2 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 dney disease 07/31/2015 04/15/2016 Uncontrolled type 2 DM with microalbuminuria or microproteinuria 09/28/2012 10/18/2013 Type II or unspecified type diabetes mellitus without mention of complication, not stated as uncontrolled documented as of this encounter (statuses as of 04/13/2022) [facility] Narrative* Problem Noted Date Resolved Date 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/15/2016 Type 2 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 dney disease 07/31/2015 04/15/2016 Uncontrolled type 2 DM with microalbuminuria or microproteinuria 09/28/2012 10/18/2013 Type II or unspecified type diabetes mellitus without mention of complication, not stated as uncontrolled documented as of this encounter (statuses as of 04/29/2022) [facility] Narrative* Problem Noted Date Resolved Date 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/15/2016 Type 2 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 dney disease 07/31/2015 04/15/2016 Uncontrolled type 2 DM with microalbuminuria or microproteinuria 09/28/2012 10/18/2013 Type II or unspecified type diabetes mellitus without mention of complication, not stated as uncontrolled documented as of this encounter (statuses as of 05/18/2022) [facility] Narrative* Problem Noted Date Resolved Date 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/15/2016 Type 2 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 dney disease 07/31/2015 04/15/2016 Uncontrolled type 2 DM with microalbuminuria or microproteinuria 09/28/2012 10/18/2013 Type II or unspecified type diabetes mellitus without mention of complication, not stated as uncontrolled documented as of this encounter (statuses as of 06/10/2022) [facility] Narrative* Problem Noted Date Resolved Date 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/15/2016 Type 2 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 dney disease 07/31/2015 04/15/2016 Uncontrolled type 2 DM with microalbuminuria or microproteinuria 09/28/2012 10/18/2013 Type II or unspecified type diabetes mellitus without mention of complication, not stated as uncontrolled documented as of this encounter (statuses as of 07/10/2022) [facility] Narrative* Problem Noted Date Resolved Date 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/15/2016 Type 2 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 dney disease 07/31/2015 04/15/2016 Uncontrolled type 2 DM with microalbuminuria or microproteinuria 09/28/2012 10/18/2013 Type II or unspecified type diabetes mellitus without mention of complication, not stated as uncontrolled documented as of this encounter (statuses as of 07/14/2022) [facility] Narrative* Problem Noted Date Resolved Date 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/15/2016 Type 2 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 dney disease 07/31/2015 04/15/2016 Uncontrolled type 2 DM with microalbuminuria or microproteinuria 09/28/2012 10/18/2013 Type II or unspecified type diabetes mellitus without mention of complication, not stated as uncontrolled documented as of this encounter (statuses as of 08/25/2022) [facility] Narrative* Problem Noted Date Resolved Date 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/15/2016 Type 2 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 dney disease 07/31/2015 04/15/2016 Uncontrolled type 2 DM with microalbuminuria or microproteinuria 09/28/2012 10/18/2013 Type II or unspecified type diabetes mellitus without mention of complication, not stated as uncontrolled documented as of this encounter (statuses as of 08/25/2022) [facility] Narrative* Problem Noted Date Resolved Date 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/15/2016 Type 2 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 dney disease 07/31/2015 04/15/2016 Uncontrolled type 2 DM with microalbuminuria or microproteinuria 09/28/2012 10/18/2013 Type II or unspecified type diabetes mellitus without mention of complication, not stated as uncontrolled documented as of this encounter (statuses as of 10/15/2022) [facility] Narrative* Problem Noted Date Resolved Date 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/15/2016 Type 2 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 dney disease 07/31/2015 04/15/2016 Uncontrolled type 2 DM with microalbuminuria or microproteinuria 09/28/2012 10/18/2013 Type II or unspecified type diabetes mellitus without mention of complication, not stated as uncontrolled documented as of this encounter (statuses as of 11/19/2022) [facility] Narrative* Problem Noted Date Diagnosed Date Resolved Date Type 1 diabetes mellitus wit h microalbuminuria 04/15/2016 04/15/2016 Type 2 diabetes mellitus wit h stage 3 chronic kidney disease 07/31/2015 04/15/2016 Uncontrolled type 2 DM with microalbuminuria or microproteinuria 09/28/2012 10/18/2013 Type II or unspecified type diabetes mellitus without mention of complication, not stated as uncontrolled 09/28/2012 documented as of this encounter (statuses as of 02/15/2023) [facility] Narrative* Problem Noted Date Diagnosed Date Resolved Date Type 1 diabetes mellitus wit h microalbuminuria (HCC) 04/15/2016 04/15/2016 Type 2 diabetes mellitus wit h stage 3 chronic kidney disease 07/31/2015 04/15/2016 Uncontrolled type 2 DM with microalbuminuria or microproteinuria 09/28/2012 10/18/2013 Type II or unspecified type diabetes mellitus without mention of complication, not stated as uncontrolled 09/28/2012 documented as of this encounter (statuses as of 04/16/2023) [facility] Narrative* Problem Noted Date Diagnosed Date Resolved Date Type 1 diabetes mellitus wit h microalbuminuria (HCC) 04/15/2016 04/15/2016 Type 2 diabetes mellitus wit h stage 3 chronic kidney disease 07/31/2015 04/15/2016 Uncontrolled type 2 DM with microalbuminuria or microproteinuria 09/28/2012 10/18/2013 Type II or unspecified type diabetes mellitus without mention of complication, not stated as uncontrolled 09/28/2012 documented as of this encounter (statuses as of 04/30/2023) [facility] Narrative* Problem Noted Date Diagnosed Date Resolved Date Type 1 diabetes mellitus wit h microalbuminuria (HCC) 04/15/2016 04/15/2016 Type 2 diabetes mellitus wit h stage 3 chronic kidney disease 07/31/2015 04/15/2016 Uncontrolled type 2 DM with microalbuminuria or microproteinuria 09/28/2012 10/18/2013 Type II or unspecified type diabetes mellitus without mention of complication, not stated as uncontrolled 09/28/2012 documented as of this encounter (statuses as of 08/05/2023) [facility] Narrative* Problem Noted Date Diagnosed Date Resolved Date Type 1 diabetes mellitus wit h microalbuminuria (HCC) 04/15/2016 04/15/2016 Type 2 diabetes mellitus wit h stage 3 chronic kidney disease 07/31/2015 04/15/2016 Uncontrolled type 2 DM with microalbuminuria or microproteinuria 09/28/2012 10/18/2013 Type II or unspecified type diabetes mellitus without mention of complication, not stated as uncontrolled 09/28/2012 documented as of this encounter (statuses as of 08/09/2023) [facility] Narrative* Problem Noted Date Diagnosed Date Resolved Date Type 1 diabetes mellitus wit h microalbuminuria (HCC) 04/15/2016 04/15/2016 Type 2 diabetes mellitus wit h stage 3 chronic kidney disease 07/31/2015 04/15/2016 Uncontrolled type 2 DM with microalbuminuria or microproteinuria 09/28/2012 10/18/2013 Type II or unspecified type diabetes mellitus without mention of complication, not stated as uncontrolled 09/28/2012 documented as of this encounter (statuses as of 08/18/2023) [facility] Narrative* Problem Noted Date Diagnosed Date Resolved Date Type 1 diabetes mellitus wit h microalbuminuria (HCC) 04/15/2016 04/15/2016 Type 2 diabetes mellitus wit h stage 3 chronic kidney disease 07/31/2015 04/15/2016 Uncontrolled type 2 DM with microalbuminuria or microproteinuria 09/28/2012 10/18/2013 Type II or unspecified type diabetes mellitus without mention of complication, not stated as uncontrolled 09/28/2012 documented as of this encounter (statuses as of 09/02/2023) [facility] Narrative* Problem Noted Date Diagnosed Date Resolved Date Type 1 diabetes mellitus wit h microalbuminuria (HCC) 04/15/2016 04/15/2016 Type 2 diabetes mellitus wit h stage 3 chronic kidney disease 07/31/2015 04/15/2016 Uncontrolled type 2 DM with microalbuminuria or microproteinuria 09/28/2012 10/18/2013 Type II or unspecified type diabetes mellitus without mention of complication, not stated as uncontrolled 09/28/2012 documented as of this encounter (statuses as of 09/06/2023) [facility]arrative* Problem Noted Date Diagnosed Date Resolved Date Type 1 diabetes mellitus wit h microalbuminuria (HCC) 04/15/2016 04/15/2016 Type 2 diabetes mellitus wit h stage 3 chronic kidney disease 07/31/2015 04/15/2016 Uncontrolled type 2 DM with microalbuminuria or microproteinuria 09/28/2012 10/18/2013 Type II or unspecified type diabetes mellitus without mention of complication, not stated as uncontrolled 09/28/2012 documented as of this encounter (statuses as of 09/07/2023) [facility] Narrative* Problem Noted Date Diagnosed Date Resolved Date Type 1 diabetes mellitus wit h microalbuminuria (HCC) 04/15/2016 04/15/2016 Type 2 diabetes mellitus wit h stage 3 chronic kidney disease 07/31/2015 04/15/2016 Uncontrolled type 2 DM with microalbuminuria or microproteinuria 09/28/2012 10/18/2013 Type II or unspecified type diabetes mellitus without mention of complication, not stated as uncontrolled 09/28/2012 documented as of this encounter (statuses as of 09/07/2023) [facility] Narrative* Problem Noted Date Diagnosed Date Resolved Date Type 1 diabetes mellitus wit h microalbuminuria (HCC) 04/15/2016 04/15/2016 Type 2 diabetes mellitus wit h stage 3 chronic kidney disease 07/31/2015 04/15/2016 Uncontrolled type 2 DM with microalbuminuria or microproteinuria 09/28/2012 10/18/2013 Type II or unspecified type diabetes mellitus without mention of complication, not stated as uncontrolled 09/28/2012 documented as of this encounter (statuses as of 09/10/2023) [facility] Narrative* Problem Noted Date Diagnosed Date Resolved Date Type 1 diabetes mellitus wit h microalbuminuria 04/15/2016 04/15/2016 Type 2 diabetes mellitus wit h stage 3 chronic kidney disease 07/31/2015 04/15/2016 Uncontrolled type 2 DM with microalbuminuria or microproteinuria 09/28/2012 10/18/2013 Type II or unspecified type diabetes mellitus without mention of complication, not stated as uncontrolled 09/28/2012 documented as of this encounter (statuses as of 09/24/2023) [facility] Narrative* Problem Noted Date Diagnosed Date Resolved Date Type 1 diabetes mellitus wit h microalbuminuria 04/15/2016 04/15/2016 Type 2 diabetes mellitus wit h stage 3 chronic kidney disease 07/31/2015 04/15/2016 Uncontrolled type 2 DM with microalbuminuria or microproteinuria 09/28/2012 10/18/2013 Type II or unspecified type diabetes mellitus without mention of complication, not stated as uncontrolled 09/28/2012 documented as of this encounter (statuses as of 10/05/2023) [facility] History of Past illness Narrative* Problem Noted Date Diagnosed Date Resolved Date Type 1 diabetes mellitus wit h microalbuminuria 04/15/2016 04/15/2016 Type 2 diabetes mellitus wit h stage 3 chronic kidney disease 07/31/2015 04/15/2016 Uncontrolled type 2 DM with microalbuminuria or microproteinuria 09/28/2012 10/18/2013 Type II or unspecified type diabetes mellitus without mention of complication, not stated as uncontrolled 09/28/2012 documented as of this encounter (statuses as of 10/08/2023) [facility] Vitamin D deficiency- Primary Unspecified vitamin D deficiency Essential hypertension, benign Hyperlipidemia, mixed Mixed hyperlipidemia Acquired hypothyroidism Unspecified hypothyroidism Type 2 diabetes mellitus with microalbuminuria, 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) [facility] Diagnosis Type 2 diabetes mellitus with microalbuminuria, without long-term current use of insulin (HCC)- Primary 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) Diabetic eye exam (HCC) Type II or unspecified type diabetes mellitus without mention of complication, not stated as uncontrolled Essential hypertension, benign Hyperlipidemia, mixed Mixed hyperlipidemia Acquired hypothyroidism Unspecified hypothyroidism Vitamin D deficiency Unspecified vitamin D deficiency Obesity, Class II, BMI 35-39.9 Obesity, unspecified Bilateral nonexudative age-related macular degeneration, unspecified stage Chronic pain of right knee Advance directive discussed with patient Other specified counseling Living will in place [facility] Diagnosis Arthritis of both knees Unspecified arthropathy, lower leg [facility]* Diagnosis Essential hypertension, benign- Primary [facility] Diagnosis Essential hypertension, benign- Primary [facility]* Diagnosis Type 2 diabetes mellitus with microalbuminuria, without long-term current use of insulin (HCC)- Primary 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) Acquired hypothyroidism Unspecified hypothyroidism Hyperlipidemia, mixed Mixed hyperlipidemia Essential hypertension, benign Vitamin D deficiency Unspecified vitamin D deficiency Arthritis of both knees Unspecified arthropathy, lower leg [facility]* Diagnosis BENIGN HYPERTENSION Essential hypertension, benign [facility]* Diagnosis Type 2 diabetes mellitus with microalbuminuria, without long-term current use of insulin (HCC) (HCC)- Primary BENIGN HYPERTENSION Essential hypertension, benign Hyperlipidemia, mixed Mixed hyperlipidemia Acquired hypothyroidism Unspecified hypothyroidism Encounter for immunization Need for other specified prophylactic vaccination against single bacterial disease 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) Vitamin D deficiency Unspecified vitamin D deficiency Stage 3a chronic kidney disease (HCC) [facility]* Diagnosis Type 2 diabetes mellitus with microalbuminuria, without long-term current use of insulin (HCC) (HCC)- Primary [facility]* Diagnosis Diabetes mellitus with stage 3 chronic kidney disease (HCC)- Primary Type II or unspecified type diabetes mellitus with renal manifestations, not stated as uncontrolled [facility]* Diagnosis Essential hypertension, benign- Primary [facility]* Diagnosis Type 2 diabetes mellitus with microalbuminuria, without long-term current use of insulin (HCC) documented in this encounter [facility] note* Diagnosis Type 2 diabetes mellitus with microalbuminuria, without long-term current use of insulin (HCC)- Primary [facility]* Diagnosis BENIGN HYPERTENSION Essential hypertension, benign [facility]* Diagnosis Chronic pain of right knee [facility]* Diagnosis Type 2 diabetes mellitus with microalbuminuria, without long-term current use of insulin (HCC) [facility]* Diagnosis Essential hypertension, benign- Primary Hyperlipidemia, mixed Mixed hyperlipidemia Acquired hypothyroidism Unspecified hypothyroidism Type 2 diabetes mellitus with microalbuminuria, without long-term current use of insulin (HCC) Stage 3a chronic kidney disease (HCC) Vitamin D deficiency Unspecified vitamin D deficiency [facility]* Diagnosis BENIGN HYPERTENSION Essential hypertension, benign [facility]* Diagnosis Type 2 diabetes mellitus with microalbuminuria, without long-term current use of insulin (HCC) [facility]* Diagnosis Diabetes mellitus with stage 3 chronic kidney disease (HCC)- Primary Type II or unspecified type diabetes mellitus with renal manifestations, not stated as uncontrolled Type 2 diabetes mellitus with microalbuminuria, without long-term current use of insulin (HCC) [facility]* Diagnosis Essential hypertension, benign- Primary [facility]* Diagnosis Type 2 diabetes mellitus with microalbuminuria, without long-term current use of insulin (HCC) Diabetes mellitus with stage 3 chronic kidney disease (HCC) Type II or unspecified type diabetes mellitus with renal manifestations, not stated as uncontrolled documented in this encounter [facility] noteNo assessment information availableWUniversity [facility]als [facility] Work Phone: Evaluation note* Diagnosis Confusion- Primary Unspecified psychosis Difficulty with speech [facility]* Diagnosis Type 2 diabetes mellitus with microalbuminuria, without long-term current use of insulin (HCC)- Primary [facility]* Diagnosis Dysarthria- Primary Confusion Unspecified psychosis Lacunar infarction (HCC) Unspecified cerebral artery occlusion with cerebral infarction Meningioma (HCC) Benign neoplasm of cerebral meninges Essential hypertension, benign Stress reaction Unspecified acute reaction to stress Type 2 diabetes mellitus with microalbuminuria, without long-term current use of insulin (HCC) Diabetes mellitus with stage 3 chronic kidney disease (HCC) Type II or unspecified type diabetes mellitus with renal manifestations, not stated as uncontrolled [facility] Diagnosis Type 2 diabetes mellitus with microalbuminuria, without long-term current use of insulin (HCC) Diabetes mellitus with stage 3 chronic kidney disease (HCC) Type II or unspecified type diabetes mellitus with renal manifestations, not stated as uncontrolled [facility]* Diagnosis Bilateral carotid artery stenosis- Primary Occlusion and stenosis of carotid artery without mention of cerebral infarction [facility]* Diagnosis BENIGN HYPERTENSION Essential hypertension, benign [facility]* Diagnosis Left atrial dilatation- Primary Cardiomegaly Moderate aortic regurgitation Aortic valve disorders documented in this encounter [facility] for referral (narrative)* Diagnostic Procedure Only (Routine) - Closed Specialty Diagnoses / Procedures Referred By Contac t Referred To Contact XR IMAGING Diagnoses Chronic pain of right knee Procedures XR KNEE GENERAL 4V AP BOTH/PA BOTH/LAT/MERC BILATERAL RADIOLOGIC EXAM KNEE COMPLETE 4/MORE VIEWS Micky Pendleton MD [address] [place] [address] [place] [address] Referral ID Status Reason Start Date Expiration Date V isits Requested Visits Authorized [id number] Closed Auto-Generate d Referral 11/14/2021 12/14/2022 1 1 [facility] for referral (narrative)No reason for referral information availableWUniversity Hospitals [facility] Work Phone: Reason for visit Narrative* Diagnostic Procedure Only (Routine) - Closed Specialty Diagnoses / Procedures Referred By Contac t Referred To Contact XR IMAGING Diagnoses Chronic pain of right knee Procedures XR KNEE GENERAL 4V AP BOTH/PA BOTH/LAT/MERC BILATERAL RADIOLOGIC EXAM KNEE COMPLETE 4/MORE VIEWS Micky Pendleton MD [address] [place] [address] [place] [address] Referral ID Status Reason Start Date Expiration Date V isits Requested Visits Authorized [id number] Closed Auto-Generate d Referral 11/14/2021 12/14/2022 1 1 [facility] Reason for Referral Specialty Diagnoses / Procedures Referred By Contac t Referred To Contact Nutrition Diagnoses Type 2 diabetes mellitus with microalbuminuria, without long-term current use of insulin (HCC) Hyperlipidemia, mixed Procedures CONSULT TO NUTRITION THERAPY OFFICE/OUTPATIENT [facility] 60-74 MINUTES Micky Pendleton MD [address] [place] [address] Referral ID Status Reason Start Date Expiration Date Visits Requested Visits Authorized [id number] Authorized PCP Requested Referral 11/14/2021 11/14/2022 1 1 Specialty Diagnoses / Procedures Referred By Contac t Referred To Contact XR IMAGING Diagnoses Chronic pain of right knee Procedures XR KNEE GENERAL 4V AP BOTH/PA BOTH/LAT/MERC BILATERAL RADIOLOGIC EXAM KNEE COMPLETE 4/MORE VIEWS Micky Pendleton MD [address] [place] [id number] Xr Imaging Referral ID Status Reason Start Date Expiration Date Visits Requested Visits Authorized [id number] Pending Review Auto-Generat ed Referral 11/14/2021 12/14/2022 1 1 Specialty Diagnoses / Procedures Referred By Contac t Referred To Contact Diagnoses Type 2 diabetes mellitus with microalbuminuria, without long-term current use of insulin (HCC) Procedures CONSULT TO DIABETES EDUCATION OFFICE/OUTPATIENT [facility] 60-74 MINUTES Micky Pendleton MD [address] [place] [address] [facility] [address] [place] [id number] Referral ID Status Reason Start Date Expiration Date Visits Requested Visits Authorized [id number] Authorized PCP Requested Referral 11/14/2021 11/14/2022 1 1 Specialty Diagnoses / Procedures Referred By Contac t Referred To Contact Orthopedics Diagnoses Arthritis of both knees Procedures CONSULT TO ORTHOPAEDICS OFFICE/OUTPATIENT [facility] 60-74 MINUTES Micky Pendleton MD [address] [place] [address] Referral ID Status Reason Start Date Expiration Date Visits Requested Visits Authorized [id number] Authorized PCP Requested Referral 12/02/2021 12/02/2022 1 1 Specialty Diagnoses / Procedures Referred By Contac t Referred To Contact Endocrinology Diagnoses Type 2 diabetes mellitus with microalbuminuria, without long-term current use of insulin (HCC) Procedures CONSULT TO ENDOCRINOLOGY OFFICE/OUTPATIENT NEW [facility] 60-74 MINUTES Deisi Calle PA-C [address] [place] [address] Referral ID Status Reason Start Date Expiration Date Visits Requested Visits Authorized [id number] Authorized PCP Requested Referral 08/25/2022 08/25/2023 1 1 Specialty Diagnoses / Procedures Referred By Kem t Referred To Contact Endocrinology Diagnoses Type 2 diabetes mellitus with microalbuminuria, without long-term current use of insulin (HCC) (HCC) Procedures CONSULT TO ENDOCRINOLOGY OFFICE/OUTPATIENT NEW [facility]IGH MDM 60 MINUTES Deisi Calle PA-C [address] [place] [address] Referral ID Status Reason Start Date Expiration Date Visits Requested Visits Authorized [id number] Authorized PCP Requested Referral 08/05/2023 08/04/2024 1 1 Advance Directives No Advanced Directives Records FoundDocuments on File Type Date Recorded Patient Policy Change Clerks Supervisor Expl anation Advance Directive(s) 12/04/2021 10:43 AM Documents on File Type Date Recorded Patient Policy Change Clerks Supervisor Expl anation Advance Directive(s) 12/04/2021 10:43 AM Advance Directive Response Recorded Date/ Time Do you have a Healthcare Power of Trim Mechanic? Yes December 27, 2024 1:38pm Chief Complaint and Reason for Visit Chief Complaint Admit Date stroke alert December 27, 2024 1:18p m Summary Purpose Family History No Family History Records FoundNo Family History Records Found Additional Source Comments Source Comments (unrecognize d section and content) In the event this informatio n is protected by the Federal Confidentiality of Alcohol and Drug Abuse Patient Records regulations: The Federal rules restrict any use of the information to criminally investigate or prosecute any alcohol or drug abuse patient.[facility] the event this information is protected by the Federal Confidentiality of Alcohol and Drug Abuse Patient Records regulations: The Federal rules restrict any use of the information to criminally investigate or prosecute any alcohol or drug abuse patient.[facility] FoundationIn the event this information is protected by the Federal Confidentiality of Alcohol and Drug Abuse Patient Records regulations: The Federal rules restrict any use of the information to criminally investigate or prosecute any alcohol or drug abuse patient.[facility] FoundationIn the event this information is protected by the Federal Confidentiality of Alcohol and Drug Abuse Patient Records regulations: The Federal rules restrict any use of the information to criminally investigate or prosecute any alcohol or drug abuse patient.[facility] FoundationIn the event this information is protected by the Federal Confidentiality of Alcohol and Drug Abuse Patient Records regulations: The Federal rules restrict any use of the information to criminally investigate or prosecute any alcohol or drug abuse patient.[facility] FoundationIn the event this information is protected by the Federal Confidentiality of Alcohol and Drug Abuse Patient Records regulations: The Federal rules restrict any use of the information to criminally investigate or prosecute any alcohol or drug abuse patient.[facility] FoundationIn the event this information is protected by the Federal Confidentiality of Alcohol and Drug Abuse Patient Records regulations: The Federal rules restrict any use of the information to criminally investigate or prosecute any alcohol or drug abuse patient.[facility] FoundationIn the event this information is protected by the Federal Confidentiality of Alcohol and Drug Abuse Patient Records regulations: The Federal rules restrict any use of the information to criminally investigate or prosecute any alcohol or drug abuse patient.[facility] FoundationIn the event this information is protected by the Federal Confidentiality of Alcohol and Drug Abuse Patient Records regulations: The Federal rules restrict any use of the information to criminally investigate or prosecute any alcohol or drug abuse patient.[facility] FoundationIn the event this information is protected by the Federal Confidentiality of Alcohol and Drug Abuse Patient Records regulations: The Federal rules restrict any use of the information to criminally investigate or prosecute any alcohol or drug abuse patient.[facility] FoundationIn the event this information is protected by the Federal Confidentiality of Alcohol and Drug Abuse Patient Records regulations: The Federal rules restrict any use of the information to criminally investigate or prosecute any alcohol or drug abuse patient.[facility] FoundationIn the event this information is protected by the Federal Confidentiality of Alcohol and Drug Abuse Patient Records regulations: The Federal rules restrict any use of the information to criminally investigate or prosecute any alcohol or drug abuse patient.[facility] FoundationIn the event this information is protected by the Federal Confidentiality of Alcohol and Drug Abuse Patient Records regulations: The Federal rules restrict any use of the information to criminally investigate or prosecute any alcohol or drug abuse patient.[facility] FoundationIn the event this information is protected by the Federal Confidentiality of Alcohol and Drug Abuse Patient Records regulations: The Federal rules restrict any use of the information to criminally investigate or prosecute any alcohol or drug abuse patient.[facility] FoundationIn the event this information is protected by the Federal Confidentiality of Alcohol and Drug Abuse Patient Records regulations: The Federal rules restrict any use of the information to criminally investigate or prosecute any alcohol or drug abuse patient.[facility] FoundationIn the event this information is protected by the Federal Confidentiality of Alcohol and Drug Abuse Patient Records regulations: The Federal rules restrict any use of the information to criminally investigate or prosecute any alcohol or drug abuse patient.[facility] FoundationIn the event this information is protected by the Federal Confidentiality of Alcohol and Drug Abuse Patient Records regulations: The Federal rules restrict any use of the information to criminally investigate or prosecute any alcohol or drug abuse patient.[facility] FoundationIn the event this information is protected by the Federal Confidentiality of Alcohol and Drug Abuse Patient Records regulations: The Federal rules restrict any use of the information to criminally investigate or prosecute any alcohol or drug abuse patient.[facility] FoundationIn the event this information is protected by the Federal Confidentiality of Alcohol and Drug Abuse Patient Records regulations: The Federal rules restrict any use of the information to criminally investigate or prosecute any alcohol or drug abuse patient.[facility] FoundationIn the event this information is protected by the Federal Confidentiality of Alcohol and Drug Abuse Patient Records regulations: The Federal rules restrict any use of the information to criminally investigate or prosecute any alcohol or drug abuse patient.[facility] FoundationIn the event this information is protected by the Federal Confidentiality of Alcohol and Drug Abuse Patient Records regulations: The Federal rules restrict any use of the information to criminally investigate or prosecute any alcohol or drug abuse patient.[facility] FoundationIn the event this information is protected by the Federal Confidentiality of Alcohol and Drug Abuse Patient Records regulations: The Federal rules restrict any use of the information to criminally investigate or prosecute any alcohol or drug abuse patient.[facility]In the event this information is protected by the Federal Confidentiality of Alcohol and Drug Abuse Patient Records regulations: The Federal rules restrict any use of the information to criminally investigate or prosecute any alcohol or drug abuse patient.[facility] FoundationIn the event this information is protected by the Federal Confidentiality of Alcohol and Drug Abuse Patient Records regulations: The Federal rules restrict any use of the information to criminally investigate or prosecute any alcohol or drug abuse patient.[facility] FoundationIn the event this information is protected by the Federal Confidentiality of Alcohol and Drug Abuse Patient Records regulations: The Federal rules restrict any use of the information to criminally investigate or prosecute any alcohol or drug abuse patient.[facility] FoundationIn the event this information is protected by the Federal Confidentiality of Alcohol and Drug Abuse Patient Records regulations: The Federal rules restrict any use of the information to criminally investigate or prosecute any alcohol or drug abuse patient.[facility] FoundationIn the event this information is protected by the Federal Confidentiality of Alcohol and Drug Abuse Patient Records regulations: The Federal rules restrict any use of the information to criminally investigate or prosecute any alcohol or drug abuse patient.[facility] FoundationIn the event this information is protected by the Federal Confidentiality of Alcohol and Drug Abuse Patient Records regulations: The Federal rules restrict any use of the information to criminally investigate or prosecute any alcohol or drug abuse patient.[facility] FoundationIn the event this information is protected by the Federal Confidentiality of Alcohol and Drug Abuse Patient Records regulations: The Federal rules restrict any use of the information to criminally investigate or prosecute any alcohol or drug abuse patient.[facility] FoundationIn the event this information is protected by the Federal Confidentiality of Alcohol and Drug Abuse Patient Records regulations: The Federal rules restrict any use of the information to criminally investigate or prosecute any alcohol or drug abuse patient.[facility] FoundationIn the event this information is protected by the Federal Confidentiality of Alcohol and Drug Abuse Patient Records regulations: The Federal rules restrict any use of the information to criminally investigate or prosecute any alcohol or drug abuse patient.[facility] FoundationIn the event this information is protected by the Federal Confidentiality of Alcohol and Drug Abuse Patient Records regulations: The Federal rules restrict any use of the information to criminally investigate or prosecute any alcohol or drug abuse patient.[facility] FoundationIn the event this information is protected by the Federal Confidentiality of Alcohol and Drug Abuse Patient Records regulations: The Federal rules restrict any use of the information to criminally investigate or prosecute any alcohol or drug abuse patient.[facility] FoundationIn the event this information is protected by the Federal Confidentiality of Alcohol and Drug Abuse Patient Records regulations: The Federal rules restrict any use of the information to criminally investigate or prosecute any alcohol or drug abuse patient.[facility] FoundationIn the event this information is protected by the Federal Confidentiality of Alcohol and Drug Abuse Patient Records regulations: The Federal rules restrict any use of the information to criminally investigate or prosecute any alcohol or drug abuse patient.[facility] FoundationIn the event this information is protected by the Federal Confidentiality of Alcohol and Drug Abuse Patient Records regulations: The Federal rules restrict any use of the information to criminally investigate or prosecute any alcohol or drug abuse patient.[facility] FoundationIn the event this information is protected by the Federal Confidentiality of Alcohol and Drug Abuse Patient Records regulations: The Federal rules restrict any use of the information to criminally investigate or prosecute any alcohol or drug abuse patient.[facility] FoundationIn the event this information is protected by the Federal Confidentiality of Alcohol and Drug Abuse Patient Records regulations: The Federal rules restrict any use of the information to criminally investigate or prosecute any alcohol or drug abuse patient.[facility] FoundationIn the event this information is protected by the Federal Confidentiality of Alcohol and Drug Abuse Patient Records regulations: The Federal rules restrict any use of the information to criminally investigate or prosecute any alcohol or drug abuse patient.[facility] FoundationIn the event this information is protected by the Federal Confidentiality of Alcohol and Drug Abuse Patient Records regulations: The Federal rules restrict any use of the information to criminally investigate or prosecute any alcohol or drug abuse patient.[facility] FoundationIn the event this information is protected by the Federal Confidentiality of Alcohol and Drug Abuse Patient Records regulations: The Federal rules restrict any use of the information to criminally investigate or prosecute any alcohol or drug abuse patient.[facility] FoundationIn the event this information is protected by the Federal Confidentiality of Alcohol and Drug Abuse Patient Records regulations: The Federal rules restrict any use of the information to criminally investigate or prosecute any alcohol or drug abuse patient.[facility] FoundationIn the event this information is protected by the Federal Confidentiality of Alcohol and Drug Abuse Patient Records regulations: The Federal rules restrict any use of the information to criminally investigate or prosecute any alcohol or drug abuse patient.[facility] FoundationIn the event this information is protected by the Federal Confidentiality of Alcohol and Drug Abuse Patient Records regulations: The Federal rules restrict any use of the information to criminally investigate or prosecute any alcohol or drug abuse patient.[facility] FoundationIn the event this information is protected by the Federal Confidentiality of Alcohol and Drug Abuse Patient Records regulations: The Federal rules restrict any use of the information to criminally investigate or prosecute any alcohol or drug abuse patient.[facility] FoundationIn the event this information is protected by the Federal Confidentiality of Alcohol and Drug Abuse Patient Records regulations: The Federal rules restrict any use of the information to criminally investigate or prosecute any alcohol or drug abuse patient.[facility] FoundationIn the event this information is protected by the Federal Confidentiality of Alcohol and Drug Abuse Patient Records regulations: The Federal rules restrict any use of the information to criminally investigate or prosecute any alcohol or drug abuse patient.[facility] FoundationIn the event this information is protected by the Federal Confidentiality of Alcohol and Drug Abuse Patient Records regulations: The Federal rules restrict any use of the information to criminally investigate or prosecute any alcohol or drug abuse patient.[facility] FoundationIn the event this information is protected by the Federal Confidentiality of Alcohol and Drug Abuse Patient Records regulations: The Federal rules restrict any use of the information to criminally investigate or prosecute any alcohol or drug abuse patient.[facility] FoundationIn the event this information is protected by the Federal Confidentiality of Alcohol and Drug Abuse Patient Records regulations: The Federal rules restrict any use of the information to criminally investigate or prosecute any alcohol or drug abuse patient.[facility] FoundationIn the event this information is protected by the Federal Confidentiality of Alcohol and Drug Abuse Patient Records regulations: The Federal rules restrict any use of the information to criminally investigate or prosecute any alcohol or drug abuse patient.[facility] FoundationIn the event this information is protected by the Federal Confidentiality of Alcohol and Drug Abuse Patient Records regulations: The Federal rules restrict any use of the information to criminally investigate or prosecute any alcohol or drug abuse patient.[facility] FoundationIn the event this information is protected by the Federal Confidentiality of Alcohol and Drug Abuse Patient Records regulations: The Federal rules restrict any use of the information to criminally investigate or prosecute any alcohol or drug abuse patient.[facility] FoundationIn the event this information is protected by the Federal Confidentiality of Alcohol and Drug Abuse Patient Records regulations: The Federal rules restrict any use of the information to criminally investigate or prosecute any alcohol or drug abuse patient.[facility] FoundationIn the event this information is protected by the Federal Confidentiality of Alcohol and Drug Abuse Patient Records regulations: The Federal rules restrict any use of the information to criminally investigate or prosecute any alcohol or drug abuse patient.[facility] FoundationIn the event this information is protected by the Federal Confidentiality of Alcohol and Drug Abuse Patient Records regulations: The Federal rules restrict any use of the information to criminally investigate or prosecute any alcohol or drug abuse patient.[facility] FoundationIn the event this information is protected by the Federal Confidentiality of Alcohol and Drug Abuse Patient Records regulations: The Federal rules restrict any use of the information to criminally investigate or prosecute any alcohol or drug abuse patient.[facility] FoundationIn the event this information is protected by the Federal Confidentiality of Alcohol and Drug Abuse Patient Records regulations: The Federal rules restrict any use of the information to criminally investigate or prosecute any alcohol or drug abuse patient.[facility] FoundationIn the event this information is protected by the Federal Confidentiality of Alcohol and Drug Abuse Patient Records regulations: The Federal rules restrict any use of the information to criminally investigate or prosecute any alcohol or drug abuse patient.[facility] FoundationIn the event this information is protected by the Federal Confidentiality of Alcohol and Drug Abuse Patient Records regulations: The Federal rules restrict any use of the information to criminally investigate or prosecute any alcohol or drug abuse patient.[facility] FoundationIn the event this information is protected by the Federal Confidentiality of Alcohol and Drug Abuse Patient Records regulations: The Federal rules restrict any use of the information to criminally investigate or prosecute any alcohol or drug abuse patient.[facility] FoundationIn the event this information is protected by the Federal Confidentiality of Alcohol and Drug Abuse Patient Records regulations: The Federal rules restrict any use of the information to criminally investigate or prosecute any alcohol or drug abuse patient.[facility] FoundationIn the event this information is protected by the Federal Confidentiality of Alcohol and Drug Abuse Patient Records regulations: The Federal rules restrict any use of the information to criminally investigate or prosecute any alcohol or drug abuse patient.[facility] FoundationIn the event this information is protected by the Federal Confidentiality of Alcohol and Drug Abuse Patient Records regulations: The Federal rules restrict any use of the information to criminally investigate or prosecute any alcohol or drug abuse patient.[facility] FoundationIn the event this information is protected by the Federal Confidentiality of Alcohol and Drug Abuse Patient Records regulations: The Federal rules restrict any use of the information to criminally investigate or prosecute any alcohol or drug abuse patient.[facility] FoundationIn the event this information is protected by the Federal Confidentiality of Alcohol and Drug Abuse Patient Records regulations: The Federal rules restrict any use of the information to criminally investigate or prosecute any alcohol or drug abuse patient.[facility] FoundationIn the event this information is protected by the Federal Confidentiality of Alcohol and Drug Abuse Patient Records regulations: The Federal rules restrict any use of the information to criminally investigate or prosecute any alcohol or drug abuse patient.[facility] FoundationIn the event this information is protected by the Federal Confidentiality of Alcohol and Drug Abuse Patient Records regulations: The Federal rules restrict any use of the information to criminally investigate or prosecute any alcohol or drug abuse patient.[facility] FoundationIn the event this information is protected by the Federal Confidentiality of Alcohol and Drug Abuse Patient Records regulations: The Federal rules restrict any use of the information to criminally investigate or prosecute any alcohol or drug abuse patient.[facility] FoundationIn the event this information is protected by the Federal Confidentiality of Alcohol and Drug Abuse Patient Records regulations: The Federal rules restrict any use of the information to criminally investigate or prosecute any alcohol or drug abuse patient.[facility] FoundationIn the event this information is protected by the Federal Confidentiality of Alcohol and Drug Abuse Patient Records regulations: The Federal rules restrict any use of the information to criminally investigate or prosecute any alcohol or drug abuse patient.[facility] FoundationIn the event this information is protected by the Federal Confidentiality of Alcohol and Drug Abuse Patient Records regulations: The Federal rules restrict any use of the information to criminally investigate or prosecute any alcohol or drug abuse patient.[facility] FoundationIn the event this information is protected by the Federal Confidentiality of Alcohol and Drug Abuse Patient Records regulations: The Federal rules restrict any use of the information to criminally investigate or prosecute any alcohol or drug abuse patient.[facility] FoundationIn the event this information is protected by the Federal Confidentiality of Alcohol and Drug Abuse Patient Records regulations: The Federal rules restrict any use of the information to criminally investigate or prosecute any alcohol or drug abuse patient.[facility] FoundationIn the event this information is protected by the Federal Confidentiality of Alcohol and Drug Abuse Patient Records regulations: The Federal rules restrict any use of the information to criminally investigate or prosecute any alcohol or drug abuse patient.[facility] FoundationIn the event this information is protected by the Federal Confidentiality of Alcohol and Drug Abuse Patient Records regulations: The Federal rules restrict any use of the information to criminally investigate or prosecute any alcohol or drug abuse patient.[facility] Reason for Visit (unrecogniz ed section and content) Reason Onset Date Comments Refill Request 09/12/2021 Reason Onset Date Comments Refill Request 10/16/2021 Reason Onset Date Comments Refill Request 10/31/2021 Reason Comments Orders Reason Comments Patient Question Reason Comments F/U 6 months Patient is here for 6 month follow up Reason Comments Results Reason Comments Appointment [facility] Reason Comments Blood Pressure Check Reason Comments Medication Problem Reason Onset Date Comments Refill Request 03/26/2022 Reason Onset Date Comments Refill Request 04/13/2022 Reason Onset Date Comments Refill Request 04/29/2022 Reason Onset Date Comments Refill Request 05/18/2022 Reason Onset Date Comments Refill Request 06/10/2022 Reason Onset Date Comments Refill Request 07/10/2022 Reason Onset Date Comments Refill Request 07/14/2022 Reason Comments Results Reason Comments Follow Up 3 month FU Reason Onset Date Comments Refill Request 10/14/2022 Reason Onset Date Comments Refill Request 11/18/2022 Reason Onset Date Comments Refill Request 02/12/2023 Reason Onset Date Comments Refill Request 04/16/2023 Reason Onset Date Comments Refill Request 04/29/2023 Reason Comments Medicare Wellness Exam Reason Onset Date Comments Refill Request 08/09/2023 Reason Onset Date Comments Refill Request 08/17/2023 Reason Comments Medicare Wellness Exam Reason Comments type 2 diabetes Specialty Diagnoses / Procedures Referred By Kem t Referred To Contact Endocrinology Diagnoses Type 2 diabetes mellitus with microalbuminuria, without long-term current use of insulin (HCC) (HCC) Procedures CONSULT TO ENDOCRINOLOGY OFFICE/OUTPATIENT NEW HIGH MDM 60 MINUTES Deisi Calle PA-C [address] [place] [address] Referral ID Status Reason Start Date Expiration Date V isits Requested Visits Authorized [id number] Closed PCP Requested Referral 08/05/2023 08/04/2024 1 1 Reason Comments Patient Update Reason Comments Orders Medical supplies ord ered Reason Onset Date Comments Refill Request 09/23/2023 Reason Comments Follow Up Blood pressure Reason Comments Ext / Diabetic Eye exam Results recorded in pt's chart Reason Onset Date Comments Refill Request 10/20/2023 Reason Comments diabetic supplies Reason Onset Date Comments Refill Request 12/03/2023 Reason Comments Follow Up Reason Comments Results A1C Reason Comments Outside Ophthalmology Reason Onset Date Comments Refill Request 02/03/2024 Reason Comments Type 2 Diabetes Reason Comments Medication Problem update Reason Comments Refill Request Reason Onset Date Comments Refill Request 04/10/2024 Reason Onset Date Comments Refill Request 04/19/2024 Reason Comments Lab Orders Reason Onset Date Comments Refill Request 05/09/2024 Out of medicatio n Reason Onset Date Comments Refill Request 06/12/2024 Reason Onset Date Comments Refill Request 07/13/2024 Reason Onset Date Comments Refill Request 07/24/2024 Reason Onset Date Comments Refill Request 08/01/2024 Reason Onset Date Comments Refill Request 09/18/2024 Reason Onset Date Comments Refill Request 09/20/2024 Reason Onset Date Comments Refill Request 10/02/2024 Reason Onset Date Comments Refill Request 10/09/2024 Reason Onset Date Comments Refill Request 10/27/2024 Reason Comments Follow Up Blood pressure Reason Onset Date Comments Refill Request 12/19/2024 Reason Comments type 2 Diabetes Reason Comments Hospital Follow Up Reason Onset Date Comments Refill Request 01/22/2025 Reason Comments Appointment Reason Onset Date Comments Results 02/03/2025 Reason Onset Date Comments Refill Request 02/06/2025 Care Teams (unrecognized sec tion and content) Cloth Hand Relationship Specialty Start Date End Date Micky Pendleton MD [address] [facility] [place] [address] PCP - General Family Practice 04/01/21 Deisi Calle PA-C [address] [facility] [place] [address] Family Practice 04/01/21 Cloth Hand Relationship Specialty Start Date End Date Micky Pendleton MD [address] [facility] [place] [address] PCP - General Family Practice 04/01/21 Deisi Calle PA-C [address] [facility] [place] [address] Family Practice 04/01/21 Cloth Hand Relationship Specialty Start Date End Date Micky Pendleton MD [address] [facility] [place] [address] PCP - General Family Practice 04/01/21 Deisi Calle PA-C [address] [facility] [place] [address] Family Practice 04/01/21 Cloth Hand Relationship Specialty Start Date End Date Micky Pendleton MD [address] [facility] [place] [address] PCP - General Family Practice 04/01/21 Deisi Calle PA-C [address] [facility] [place] [address] Family Practice 04/01/21 Cloth Hand Relationship Specialty Start Date End Date Micky Pendleton MD [address] [facility] [place] [place] [address] PCP - General Family Practice 04/01/21 Deisi Calle PA-C [address] [place] [address] Family Practice 04/01/21 Cloth Hand Relationship Specialty Start Date End Date Micky Pendleton MD [address] [place] [address] PCP - General Family Practice 04/01/21 Deisi Calle PA-C [address] [place] [address] Family Practice 04/01/21 Cloth Hand Relationship Specialty Start Date End Date Micky Pendleton MD [address] [place] [address] PCP - General Family Practice 04/01/21 Deisi Calle PA-C [address] [place] [address] Family Practice 04/01/21 Cloth Hand Relationship Specialty Start Date End Date Micky Pendleton MD [address] [place] [address] PCP - General Family Practice 04/01/21 Deisi Calle PA-C [address] [place] [address] Family Practice 04/01/21 Cloth Hand Relationship Specialty Start Date End Date Micky Pendleton MD [address] [place] [address] PCP - General Family Medicine 04/01/21 Deisi Calle PA-C [address] [place] [address] Family Medicine 04/01/21 Cloth Hand Relationship Specialty Start Date End Date Micky Pendleton MD [address] [place] [address] PCP - General Family Medicine 04/01/21 Deisi Calle PA-C [address] [place] [address] Family Medicine 04/01/21 Cloth Hand Relationship Specialty Start Date End Date Micky Pendleton MD [address] [place] [address] PCP - General Family Medicine 04/01/21 Deisi Calle PA-C [address] [place] [address] Family Medicine 04/01/21 Cloth Hand Relationship Specialty Start Date End Date Micky Pendleton MD [address] [place] [address] PCP - General Family Medicine 04/01/21 Deisi Calle PA-C [address] [place] [address] Family Medicine 04/01/21 Cloth Hand Relationship Specialty Start Date End Date Micky Pendleton MD [address] [place] [address] PCP - General Family Medicine 04/01/21 Deisi Calle PA-C [address] [place] [address] Family Medicine 04/01/21 Cloth Hand Relationship Specialty Start Date End Date Micky Pendleton MD [address] [place] [address] PCP - General Family Medicine 04/01/21 Deisi Calle PA-C [address] [place] [address] Family Medicine 04/01/21 Cloth Hand Relationship Specialty Start Date End Date Micky Pendleton MD [address] [place] [address] PCP - General Family Medicine 04/01/21 Deisi Calle PA-C [address] [place] [address] Family Medicine 04/01/21 Cloth Hand Relationship Specialty Start Date End Date Micky Pendleton MD [address] [place] [address] PCP - General Family Medicine 04/01/21 Deisi Calle PA-C [address] [place] [address] Family Medicine 04/01/21 Cloth Hand Relationship Specialty Start Date End Date Micky Pendleton MD [address] [place] [address] PCP - General Family Medicine 04/01/21 Deisi Calle PA-C [address] [place] [address] Family Medicine 04/01/21 Cloth Hand Relationship Specialty Start Date End Date Micky Pendleton MD [address] [place] [address] PCP - General Family Medicine 04/01/21 Deisi Calle PA-C [address] [place] [address] Family Medicine 04/01/21 Cloth Hand Relationship Specialty Start Date End Date Micky Pendleton MD [address] [place] [address] PCP - General Family Medicine 04/01/21 Deisi Calle PA-C [address] [place] [address] Family Medicine 04/01/21 Cloth Hand Relationship Specialty Start Date End Date Micky Pendleton MD [address] [place] [address] PCP - General Family Medicine 04/01/21 Deisi Calle PA-C [address] [place] [address] Family Medicine 04/01/21 Cloth Hand Relationship Specialty Start Date End Date Micky Pendleton MD [address] [place] [address] PCP - General Family Medicine 04/01/21 Deisi Calle PA-C [address] [place] [address] Family Medicine 04/01/21 Cloth Hand Relationship Specialty Start Date End Date Micky Pendleton MD [address] [place] [address] PCP - General Family Medicine 04/01/21 Deisi Calle PA-C [address] [place] [address] Family Medicine 04/01/21 Cloth Hand Relationship Specialty Start Date End Date Micky Pendleton MD [address] [place] [address] PCP - General Family Medicine 04/01/21 Deisi Calle PA-C [address] [place] [address] Family Medicine 04/01/21 Cloth Hand Relationship Specialty Start Date End Date Micky Pendleton MD [address] [place] [address] PCP - General Family Medicine 04/01/21 Deisi Calle PA-C [address] [place] [address] Family Medicine 04/01/21 Cloth Hand Relationship Specialty Start Date End Date Micky Pendleton MD [address] [place] [address] PCP - General Family Medicine 04/01/21 Deisi Calle PA-C [address] [place] [address] Family Medicine 04/01/21 Cloth Hand Relationship Specialty Start Date End Date Micky Pendleton MD [address] [place] [address] PCP - General Family Medicine 04/01/21 Deisi Calle PA-C [address] [place] [address] Family Medicine 04/01/21 Cloth Hand Relationship Specialty Start Date End Date Micky Pendleton MD [address] [place] [address] PCP - General Family Medicine 04/01/21 Deisi Calle PA-C [address] [place] [address] Family Medicine 04/01/21 Cloth Hand Relationship Specialty Start Date End Date Micky Pendleton MD [address] [place] [address] PCP - General Family Medicine 04/01/21 Deisi Calle PA-C [address] [place] [address] Family Medicine 04/01/21 Cloth Hand Relationship Specialty Start Date End Date Micky Pendleton MD [address] [place] [address] PCP - General Family Medicine 04/01/21 Deisi Calle PA-C [address] [place] [address] Family Medicine 04/01/21 Cloth Hand Relationship Specialty Start Date End Date Micky Pendleton MD [address] [place] [address] PCP - General Family Medicine 04/01/21 Deisi Calle PA-C [address] [place] [address] Family Medicine 04/01/21 Cloth Hand Relationship Specialty Start Date End Date Micky Pendleton MD [address] [place] [address] PCP - General Family Medicine 04/01/21 Deisi Calle PA-C [address] [place] [address] Family Medicine 04/01/21 Cloth Hand Relationship Specialty Start Date End Date Micky Pendleton MD [address] [place] [address] PCP - General Family Medicine 04/01/21 Deisi Calle PA-C [address] [place] [address] Family Medicine 04/01/21 Cloth Hand Relationship Specialty Start Date End Date Micky Pendleton MD [address] [place] [address] PCP - General Family Medicine 04/01/21 Deisi Calle PA-C [address] [place] [address] Family Medicine 04/01/21 Saul Murphy, PAUL.CLERK CHECKER [address] [place] [address] [employer] Maintenance In[employer] Family Medicine 05/27/24 Deisi Calle PA-C [address] [place] [address] Aircraft Maintenance Instructor Family Medicine 05/27/24 Cloth Hand Relationship Specialty Start Date End Date Micky Pendleton MD [address] [place] [address] PCP - General Family Medicine 04/01/21 Deisi Calle PA-C [address] [place] [address] Family Medicine 04/01/21 Saul Murphy, PAUL.CLERK CHECKER [address] [place] [address] Aircraft Maintenance Instructor Family Medicine 05/27/24 Deisi Calle PA-C [address] [place] [address] [facility] 05/27/24 Cloth Hand Relationship Specialty Start Date End Date Micky Pendleton MD [address] [place] [address] PCP - General Family Medicine 04/01/21 Deisi Calle PA-C [address] [place] [address] Family Medicine 04/01/21 Saul Murphy APRN.CLERK CHECKER [address] [place] [address] [facility]/24 Deisi Calle PA-C [address] [place] [address] [facility] 05/27/24 Cloth Hand Relationship Specialty Start Date End Date Micky Pendleton MD [address] [place] [address] PCP - General Family Medicine 04/01/21 Deisi Calle PA-C [address] [place] [address] Family Medicine 04/01/21 Saul Murphy APRN.CLERK CHECKER [address] [place] [address] Aircraft Maintenance Instructor Family [facility] 05/27/24 Deisi Calle PA-C [address] [place] [address] Aircraft Maintenance Instructor Family Medicine 05/27/24 Cloth Hand Relationship Specialty Start Date End Date Micky Pendleton MD [address] [place] [address] PCP - General Family Medicine 04/01/21 Deisi Calle PA-C [address] [place] [address] Family Medicine 04/01/21 Saul Murphy APRN.CLERK CHECKER [address] [place] [address] Aircraft Maintenance Instructor Family [facility] 05/27/24 Deisi Calle PA-C [address] [place] [address] [employer] Maintenance In[employer] [facility] [facility] 05[facility]27/24 Cloth Hand Relationship Specialty Start Date End Date Micky Pendleton MD [address] [place] [address] PCP - General Family Medicine 04/01/21 Deisi Calle PA-C [address] [place] [address] Family Medicine 04/01/21 Saul Murphy, POWER PRESS OPERATOR.CLERK CHECKER [address] [place] [address] Aircraft Maintenance Instructor Family Medicine 05/27/24 Deisi Calle PA-C [address] [place] [address] Aircraft Maintenance Instructor Family Medicine 05/27/24 Cloth Hand Relationship Specialty Start Date End Date Micky Pendleton MD [address] [place] [address] PCP - General Family Medicine 09/25/24 Deisi Calle PA-C [address] [place] [address] Family Medicine 04/01/21 Saul Murphy APRN.CLERK CHECKER [facility] [place] [address] Aircraft Maintenance Instructor Family Medicine 05/27/24 Deisi Calle PA-C [address] [place] [address] Aircraft Maintenance Instructor Family Medicine 05/27/24 Cloth Hand Relationship Specialty Start Date End Date Micky Pendleton MD [address] [place] [address] PCP - General Family Medicine 09/25/24 Deisi Calle PA-C [address] [place] [address] Family Medicine 04/01/21 Saul Murphy, PAUL.CLERK CHECKER [facility] [place] [address] Aircraft Maintenance Instructor Family Medicine 05/27/24 Deisi Calle PA-C [address] [place] [address] Aircraft Maintenance Instructor Family Medicine 05/27/24 Cloth Hand Relationship Specialty Start Date End Date Micky Pendleton MD [address] [place] [address] PCP - General Family Medicine 09/25/24 Deisi Calle PA-C [address] [place] [address] Family Medicine 04/01/21 Saul Murphy, PAUL.CLERK CHECKER [address] [place] [address] Aircraft Maintenance Instructor Family [facility] 05/27/24 Deisi Calle PA-C [address] [place] [address] Aircraft Maintenance Instructor [facility] 05/27/24 Cloth Hand Relationship Specialty Start Date End Date Micky Pendleton MD [address] [place] [address] PCP - General Family Medicine 09/25/24 Deisi Calle PA-C [address] [place] [address] Family Medicine 04/01/21 Saul Murphy, POWER PRESS OPERATOR.CLERK CHECKER [address] [place] [address] Aircraft Maintenance Instructor Family [facility] 05/27/24 Deisi Calle PA-C [address] [place] [address] Aircraft Maintenance Instructor Family [facility] 05/27/24 Cloth Hand Relationship Specialty Start Date End Date Micky Pendleton MD [address] [place] [address] PCP - General Family Medicine 09/25/24 Deisi Calle PA-C [address] [place] [address] Family Medicine 04/01/21 Saul Murphy APRN.CLERK CHECKER [address] [place] [address] Aircraft Maintenance Instructor Family Medicine 05/27/24 Deisi Calle PA-C [address] [place] [address] Aircraft Maintenance Instructor Family Medicine 05/27/24 Cloth Hand Relationship Specialty Start Date End Date Micky Pendleton MD [address] [place] [address] PCP - General Family Medicine 09/25/24 Deisi Calle PA-C [address] [place] [address] Family Medicine 04/01/21 Saul Murphy APRN.CLERK CHECKER [address] [place] [address] Aircraft Maintenance Instructor Family Medicine 11/20/24 Deisi Calle PA-C [address] [place] [address] Aircraft Maintenance Instructor Family Medicine 11/20/24 Cloth Hand Relationship Specialty Start Date End Date Micky Pendleton MD [address] [place] [address] PCP - General Family Medicine 09/25/24 Deisi Calle PA-C [address] [place] [address] Family Medicine 04/01/21 Saul Murphy APRN.CLERK CHECKER [address] [place] [address] Aircraft Maintenance Instructor Family [facility] 11/20/24 Deisi Calle PA-C [address] [place] [address] [facility] 11/20/24 Team Status: Active Member Role/Relationship Status Dates Dr. Micky Pendleton MD Primary Care Provider Active Team Status: Inactive Member Role/Relationship Status Dates Dr. Hiren Garber DO Emergency Provider Active Start: December 27, 2024 End: December 27, 2024 Dr. Micky Pendleton MD Primary Care Provider Active Start: December 27, 2024 End: December 27, 2024 Cloth Hand Relationship Specialty Start Date End Date Micky Pendleton MD [address] [place] [address] PCP - General Family Medicine 09/25/24 Deisi Calle PA-C [address] [place] [address] Family Medicine 04/01/21 Saul Murphy, POWER PRESS OPERATOR.CLERK CHECKER [address] [place] [address] [facility] 11/20/24 Deisi Calle PA-C [address] [place] [address] [facility] 11/20/24 Cloth Hand Relationship Specialty Start Date End Date Micky Pendleton MD [address] [place] [address] PCP - General Family Medicine 09/25/24 Deisi Calle PA-C [address] [place] [address] Family Medicine 04/01/21 Saul Murphy APRN.CLERK CHECKER [address] [place] [address] Aircraft Maintenance Instructor Family Medicine 11/20/24 Deisi Calle PA-C [address] [place] [address] Aircraft Maintenance Instructor Family Medicine 11/20/24 Cloth Hand Relationship Specialty Start Date End Date Micky Pendleton MD [address] [place] [address] PCP - General Family Medicine 09/25/24 Deisi Calle PA-C [address] [place] [address] Family Medicine 04/01/21 Saul Murphy APRN.CLERK CHECKER [address] [place] [address] Aircraft Maintenance Instructor Family Medicine 11/20/24 Deisi Calle PA-C [address] [place] [address] Aircraft Maintenance Instructor Family Medicine 11/20/24 Cloth Hand Relationship Specialty Start Date End Date Micky Pendleton MD [address] [place] [address] PCP - General Family Medicine 09/25/24 Deisi Calle PA-C [address] [place] [address] Family Medicine 04/01/21 Saul Murphy APRN.CLERK CHECKER [address] [place] [address] Aircraft Maintenance Instructor Family [facility] 11/20/24 Deisi Calle PA-C [address] [place] [address] Aircraft Maintenance Instructor Family [facility] 11/20/24 Cloth Hand Relationship Specialty Start Date End Date Micky Pendleton MD [address] [place] [address] PCP - General Family Medicine 09/25/24 Deisi Calle PA-C [address] [place] [address] Family Medicine 04/01/21 Saul Murphy, PAUL.CLERK CHECKER [address] [place] [address] Aircraft Maintenance Instructor Family [facility] 11/20/24 Deisi Calle PA-C [address] [place] [address] Aircraft Maintenance Instructor [facility] 11/20/24 Cloth Hand Relationship Specialty Start Date End Date Micky Pendleton MD [address] [place] [address] PCP - General Family Medicine 09/25/24 Deisi Calle PA-C [address] [place] [address] Family Medicine 04/01/21 Saul Murphy APRN.CLERK CHECKER [address] [place] [address] [facility] 11/20/24 Deisi Calle PA-C [address] [facility] [place] [address] [facility] 11/20/24 Goals (unrecognized section and content) Goals may be documented in a n alternate section INFORMATION SOURCE (unrecogn ized section and content) DATE CREATED AUTHOR 05/03/2025 [facility] DATE CREATED AUTHOR AUTHOR'S ORGANIZ ATION 05/03/2025 [facility] FOR RECORDS PERTAINING TO PATIENTS WHO ARE OR HAVE BEEN ENROLLED IN A CHEMICAL DEPENDENCY/SUBSTANCEABUSE PROGRAM, SOME INFORMATION MAY BE OMITTED. This clinical summary was aggregated from multiple sources. Caution should be exercised in using it in the provision of clinical care. This summary normalizes information from multiple sources, and as a consequence, information in this document may materially change the coding, format and clinical context of patient data. In addition, data may be omitted in some cases. CLINICAL DECISIONS SHOULD BE BASED ON THE PRIMARY CLINICAL RECORDS. [facility] [employer] [facility]. provides no warranty or guarantee of the accuracy or completeness of information in this document.
[2025-05-06 15:03] VITALS: BP 107/51; PULSE 74; RESP 16; TEMP 36.6; O2SAT 97; BMI 32.3
[2025-05-06 15:10] VITALS: BP 107/51; PULSE 74; RESP 16; TEMP 36.6; O2SAT 97
[2025-05-07] VITALS (9 sets, daily range): BP systolic 125–162; BP diastolic 59–106; PULSE 86–119; RESP 17–18; TEMP 36.7–37.1; O2SAT 95–98
--- NOTE | 2025-05-07 00:17 | PCM.HOSP.N ---
Hospitalist Note Patient agitated, refusing her medications, normally on low dose Risperdal but refusing. Also refusing her DM medication. Will initiate ISS in the interim and also will trial haldol IM x 1.
--- NOTE | 2025-05-07 04:54 | NURSING ---
Pt. awake all night. Pt. refused ALL medications. Pt. stated, "medication doesn't look the same as medication at home. Something is fishy." Patient adamant about calling daughter. Call placed to daughter, Nathalia. Nathalia was very appreciative to be called. Nathalia is a nurse and works assistant casino shift manager. Daughter talked to patient to attempt to get her to take medication. Patient refused and then wanted to talk to her . talked to patient. spoke to this nurse and wanted to speak to patient. Patient remained to decline all medication. Dr. Christine Wright, hospitalist, contacted regarding patient BP 187/95 and HS BS 241 anxious about taking medication. Dr. Wright put orders in for patient for Haldol one time dose and sliding scale insulin. Pt. refused insulin. This nurse attempted to retake vitals and blood sugar and pt. adamantly refused again.
--- NOTE | 2025-05-07 08:11 | EX.PCM.HP.RE ---
HPI - General General Date of Admission: 05/06/25 Date of Service: 05/07/25 Chief Complaint: Post stroke debility/delirium HPI Narrative CHALINO ARGUELLES, is a 79 YO F with a PMH of hypertension, diabetes mellitus type 2, congestive heart failure, coronary artery disease and history of a TIA who presented to the emergency department at [facility] on 05/01/2025 with complaints of confusion/altered mental status for the preceding couple days. Her who is her primary caregiver related that she had had some vomiting about 3 days prior to presenting to the ER and then started having dry heaves. Oral intake has been poor. In the emergency room she had a temp of 100.7 °F, heart rate of 126-135 and a mildly elevated blood pressure ( low for her). She was not hypoxic. White blood cell count was elevated at 12.3 with a left shift. Hemoglobin was 11.4 and platelets were within normal limits. Sodium was low at 128 and the serum bicarb was low at 16.8. The BUN was 41 with a creatinine of 1.87 and her blood sugar was 430. Lactic acid was elevated at 2.4. Beta hydroxybutyric was elevated at 1.9. The UA showed 0 WBCs per high-power field. She was negative for COVID, influenza and RSV. Respiratory panel was negative. Chest x-ray showed no acute findings. A noncontrast CT brain showed a stable changes as well as meningioma in the anterior aspect of the right frontal lobe. CTA of the head and neck showed mild atherosclerotic plaque formation at the origin of both the right and left internal carotid arteries causing less than 50% stenosis. She was admitted to the hospitalist service and placed in the ICU with a diagnosis of DKA and sepsis. No source for infection identified. She became very agitated in the ICU and was placed on Precedex to control behavior. Blood and urine cultures were negative. Precedex was discontinued and she was started on Risperdal 2.5 mg. Transthoracic echocardiogram showed mild to moderate inferior and posterior hypokinesis with an estimated ejection fraction of 55%. She had stage II diastolic dysfunction. The left atrium was mildly enlarged and she had mild mitral and tricuspid valve insufficiency. The right ventricular systolic pressure was estimated to be 47. She was transferred to the acute rehab unit at [facility] on 05/06/25 for 3 hours of therapy daily to restore function/independence at or near her level prior to the stroke. MRI showed acute ischemia in the right posterior cerebral artery distribution involving the right occipital lobe and portions of the posterior right thalamus. There were chronic microvascular ischemic changes and volume loss. She was very agitated at admission to rehab. Confused and paranoid as well. Refusing medications and lab work and is requiring a sitter. Cortisol drawn at approximately 2:30 on the day of admission was markedly elevated at 104.......she had not received any steroids in the hospital. She was not on steroids as an OP. Medications at admission to the hospital included furosemide 20 mg daily, glimepiride 4 mg twice daily, hydralazine 25 mg 4 times daily, labetalol 600 mg twice daily, levothyroxine 75 mcg daily, lisinopril 30 mg twice daily, metformin 1000 mg twice daily Januvia 100 mg daily, aspirin 81 mg daily and vitamin D supplement. QTc at admission to the hospital was 495 and that was prior to Risperdal. I reviewed all the labs from the hospital. Her last chemistry was on 05/05/2025 and her sodium was 137 with a potassium of 3.1 and a serum bicarb 23. The BUN was 30 and the creatinine was 1.58. Creatinine in December 2024 was 1.4. [facility] Medical History (Updated 05/07/25 @ 17:[address] Reba Calle, ) Family history of Alzheimer's disease Alopecia Pulmonary hypertension Mild left atrial enlargement Grade II diastolic dysfunction TIA (transient ischemic attack) Hypothyroidism Congestive heart failure (CHF) Coronary artery disease Hypertension Home Medications Medication Instructions Recorded Last Taken Type furosemide 20 mg tablet 20 mg PO DAILY fluid retention 12/27/24 Unknown History glimepiride 4 mg tablet 4 mg PO BID blood sugar 12/27/24 Unknown History hydralazine 25 mg tablet 50 mg PO Q12H BP 12/27/24 Unknown History labetalol 200 mg tablet 600 mg PO BID BP 12/27/24 Unknown History levothyroxine 75 mcg tablet 75 mcg PO MOTUWETHFRSA hypothyroid 12/27/24 Unknown History lisinopril 30 mg tablet 30 mg PO BID BP 12/27/24 Unknown History metformin 1,000 mg tablet 1,000 mg PO BID blood sugar 12/27/24 Unknown History sitagliptin phosphate 100 mg 100 mg PO DAILY Blood sugar 12/27/24 Unknown History tablet (Januvia) aspirin 81 mg tablet,delayed 81 mg PO DAILY heart 05/01/25 Unknown History release (Adult Aspirin Regimen) cholecalciferol (vitamin D3) 25 25 mcg PO DAILY low d 05/01/25 Unknown History mcg (1,000 unit) capsule acetaminophen 325 mg tablet 650 mg (2 x 325 mg) PO Q6H PRN PRN 05/05/25 Unknown Rx Pain 1-10 Or Fever>100.7 #0 tabs atorvastatin 40 mg tablet 40 mg PO QHS cholesterol #0 tabs 05/05/25 Unknown Rx potassium chloride 20 mEq 40 meq (2 x 20 mEq) PO DAILYCM 05/05/25 Unknown Rx tablet,extended release(part/cryst) Potassium 2 days #4 tabs risperidone 0.25 mg tablet 0.25 mg PO BID Mood #0 tabs 05/05/25 Unknown Rx heparin (porcine) 5,000 unit/mL 5,000 unit subcut Q12H Blood 05/06/25 Unknown History injection solution thinner levothyroxine 150 mcg tablet 150 mcg PO CONNELL Thyroid 05/06/25 Unknown History (Synthroid) sennosides 8.6 mg-docusate sodium 2 tab PO BID Constipation 05/06/25 Unknown History 50 mg tablet (Stimulant Laxative Plus) Allergy/AdvReac Type Severity Reaction Status Date / Time No Known Allergies Allergy Verified 05/01/25 07:50 Family History no significant family his no significant family history Surgical History no surgical history no surgical history Social History (Updated 05/07/25 @ 11:[address] Reba Calle, DO) household members: spouse housing: house number of children: 2 Smoking Status: Never smoker alcohol intake: never substance use type: does not use ROS Review of Systems ROS Unobtainable: due to encephalopathy Cardiovascular Cardiovascular: Denies chest pain Respiratory/Chest Respiratory/Chest: Denies cough, shortness of breath at rest or shortness of breath with exertion Gastrointestinal Gastrointestinal: Denies abdominal pain or nausea Genitourinary Genitourinary: Denies dysuria Vital Signs Vital Signs Vital Signs: 05/06/25 15:03 05/06/25 15:10 05/06/25 16:06 Temperature 97.9 F 97.9 F Temperature Source Temporal Temporal Pulse Rate 74 74 Respiratory Rate 16 16 Respiratory Effort Normal Non-Labored Respiratory Depth Normal Respiratory Pattern Normal Blood Pressure 107/51 L 107/51 L Blood Pressure Mean 69 69 Blood Pressure Source Monitor Monitor Blood Pressure Position Semi-Fowlers Semi-Fowlers Blood Pressure Location Right Arm Left Arm Pulse Ox 97 97 Oxygen Delivery Method Room Air Room Air Room Air 05/06/25 22:00 05/07/25 06:11 Temperature 98.8 F Temperature Source Temporal Pulse Rate 119 H Respiratory Rate 17 Respiratory Effort Normal Non-Labored Respiratory Depth Normal Respiratory Pattern Normal Blood Pressure 145/106 H Blood Pressure Mean 119 Blood Pressure Source Monitor Blood Pressure Position Semi-Fowlers Blood Pressure Location Left Arm Pulse Ox 95 Oxygen Delivery Method Room Air Room Air Weight Weight: 164 lb 6.4 oz Body Mass Index (BMI) 32.3 Indicators for Scoring Admitted with or Primary Diagnosis of CVA/Stroke: Yes Hx of CVA/Stroke: Yes Modified Ru Score MRS Score at time of Evaluation: 4-Moderate/severe disability NIHSS NIHSS 1a. Level of Consciousness: 0 - Alert; keenly responsive 1b. LOC Questions: 0 - Answers BOTH questions correctly 1c. LOC Commands: 0 - Performs BOTH tasks correctly 2. Best Gaze: 0 - Normal 3. Visual: 2 - Complete hemianopia (Left lateral and R medial upper and lower quadrants. ) 4. Facial Palsy: 0 - Normal symmetrical movements 5a. Left Arm: 0 - No drift; arm holds 90 (or 45) degrees for full 10 seconds 5b. Right Arm: 0 - No drift; arm holds 90 (or 45) degrees for full 10 seconds 6a. Left Le - No drift; leg holds 30-degree position for full 5 seconds 6b. Right Le - No drift; leg holds 30-degree position for full 5 seconds 7. Limb Ataxia: 1 - Present in 1 limb (Left upper extremity) 8. Sensory: 0 - Normal; no sensory loss 9. Best Language: 0 - No aphasia; normal 10. Dysarthria: 0 - Normal 11. Extinction and Inattention: 2 - Profound shawn-inattention or extinction to more than one modality; Total: 5 Stroke Questions Stroke Team Activated: No Physical Exam Const Constitutional Narrative: Exam is somewhat limited due to poor cooperation/agitation. She is agitated and paranoid. General Appearance: uncooperative and combative HEENT normocephalic and head/scalp atraumatic HEENT Narrative: Mucous membranes are very dry. Eyes PERRL, EOMs intact bilaterally, conjunctivae normal and no scleral icterus Eyes Narrative: No discharge from the eyes. Visual filed cuts left lateral upper and lower quadrant and right medial upper and lower quadrant. General Eye: normal appearance of both eyes Neck supple Chest Chest: symmetrical chest wall rise Resp normal respiratory effort, normal air movement and clear to auscultation bilaterally Effort and Inspection: able to speak in complete sentences Cardio regular rhythm, S1 normal heart sound, S2 normal heart sound, no murmurs, no rub and no gallops Cardio Narrative: Tachycardic. No ectopy GI normal to inspection, nondistended, normoactive bowel sounds, soft to palpation and non-tender GI Narrative: No guarding with palpation no CVA tenderness Extremity no calf tenderness and no pedal edema Extremity Narrative: She has superficial varicosities of both lower extremities. Skin Rashes: no rashes Neuro Neuro Narrative: She was oriented x 3 (but, this changes from minute to minute) and was accurately answering my questions. Then she told us that the gentleman in her room was not her . She complained that the "arthritis people" that were in her room this morning asked her what kind of underwear her more and she refused to tell them. They apparently also asked her what college she went to and again she refused. Anytime the question is asked about her she refuses to answer. She tells that she is allergic to pink pills and will take her medications. She told me that she was at [facility] at 1 point. she is able to tell me that she had a stroke. She got agitated with therapy and she still has a sitter in her room. She is impulsive and unaware of her deficits. She has no facial asymmetry and the tongue protrudes on the midline. She has complete hemianopia left lateral superior and inferior quadrants and right medial superior and inferior quadrants. There was no nystagmus. Good shoulder shrug bilaterally. No drift with the upper extremities or the lower extremities. The left leg is a little weaker than the right. No ataxia with the lower extremities. Denies paresthesias. Visual extinction and severe neglect of the left side. Good plantarflexion and dorsiflexion bilaterally. No tremors. Psych Negative for thought process normal, cooperative or affect normal Psych Narrative: Very confused and agitated at times and at other times she is oriented x 3 and cannot give me appropriate/correct history. Sometimes she recognizes her and other times she tells us that is not her . She is impulsive and unaware of her deficits. She did not sleep last night. Has been requiring a sitter. Activity / Motor Behavior: psychomotor agitation Results Lab / Micro Data 05/07/25 09:50 05/07/25 09:50 Labs: Laboratory Results - last 24 hr 05/06/25 16:55: POC Glucose 233 H 05/06/25 22:48: POC Glucose 241 H 05/07/25 06:08: POC Glucose 275 H Assessment & Plan Assessment/Plan (1) Debility: (2) Cerebral infarction: QUALIFIERS: Cerebral infarction mechanism: unspecified mechanism Qualified Code(s): I63.9 - Cerebral infarction, unspecified PLAN: Acute ischemia in the right posterior cerebral artery distribution involving the right occipital lobe and portions of the posterior right thalamus on MRI. (3) Hemianopia, homonymous, left: (4) Left-sided neglect: (5) Encephalopathy acute: (6) Behavioral problem: (7) Paranoia: (8) Hypothyroidism: QUALIFIERS: Hypothyroidism type: unspecified Qualified Code(s): E03.9 - Hypothyroidism, unspecified (9) Meningioma: (10) Coronary artery disease: QUALIFIERS: Coronary Disease-Associated Artery/Lesion type: [place] artery [place] vs. transplanted heart: [place] heart Associated angina: without angina Qualified Code(s): I25.10 - Atherosclerotic heart disease of [place] coronary artery without angina pectoris (11) Hypertension: QUALIFIERS: Hypertension type: unspecified Qualified Code(s): I10 - Essential (primary) hypertension (12) Pulmonary hypertension: (13) Mild left atrial enlargement: (14) Grade II diastolic dysfunction: PLAN: Plan PLAN PT for gait stability OT for ADL's ST for evaluation Analgesics as needed Bowel protocol Fall precautions Assess for Anxiety/Depression GI prophylaxis -not necessary at this time. She denies nausea/vomiting/abdominal pain. CBC is normal. She is nontender on exam of the abdomen. Bowel sounds are not hyperactive. DVT prophylaxis with heparin 5000 units SQ every 12 hours Follow up with PCP, neurology following DC from [facility] Rehab AM lab including CMP, CBC, Mag and Phos -all personally reviewed. Awaiting the results of the T4 and cortisol. Cortisol was markedly elevated on 05/01/2025 at 104. Recheck today is 16.8. Free T4 is pending. We have discontinued labetalol and placed her on metoprolol 50 mg p.o. twice daily. Lisinopril was decreased to 30 mg once daily. Hydralazine has been changed to 50 mg twice daily. We are trying to limit the number of times she receives medication because she is so resistant to taking them. Increase sliding insulin scale to medium high scale. Goal for blood pressure is less than 130/80. LDL was 71 at admission and goal is less than 70. Hemoglobin A1c was elevated at 8.9 at admission. Blood sugars are currently uncontrolled. Part of this is due to noncompliance with medication and refusal to allow us to give insulin. May need to increase the dose of the Risperdal for better cooperation. Consider changing the medication to Seroquel to help with sleep at night. If we can not get behavior in control will need to consider transfer to a [facility] facility. Will check an EKG today. QTc was 495 at admission and that was prior to antipsychotics. Charges/Coding Visit Charges Inpatient E&M: 03111 Init Hosp L3
[2025-05-07] MEDS: Aspirin E.C. 81 MG Tablet PO (08:27)
[2025-05-07] MEDS: Potassium Chloride Oral Tablet 20 MEQ 40 MEQ PO (08:28)
[2025-05-07] MEDS: Cholecalciferol (VIT D3) 25 MCG TABLET (1,000 UNITS) PO (08:33)
[2025-05-07] MEDS: LINAGLIPTIN 5 MG TABLET PO (09:31)
[2025-05-07] MEDS: FLU VACCINE HIGH DOSE 25-26(65YR UP) 180 MCG/0.5 ML SYRINGE IM (09:40)
[2025-05-07] MEDS: Heparin Injection (Vial) 5,000 UNIT/ML VIAL 5000 UNIT SC ×2 (09:42→20:36)
[2025-05-07 10:02] LABS: Hematocrit 34.9 % (37-47); Hemoglobin 11.7 g/dL (12.0-15.0); Immature Granulocytes Count 0.050 X10^3/uL (0.0-0.0); Mean Corp Hgb Conc 33.5 g/dL (32-36); Mean Corpuscular Volume 85.7 fL (81-99); Mean Platelet Vol. 10.9 fl (6.2-12.0); NRBC Flagged by Analyzer 0 % (0-5); Platelet Count 313 K/mm3 (150-450); RBC Distribution Width CV 12.7 % (11.6-14.6); RBC Distribution Width SD 39.7 fl (35.1-43.9); Red Blood Count 4.07 M/mm3 (4.2-5.4); White Blood Count 9.1 K/mm3 (4.4-11.0)
[2025-05-07 11:06] LABS: AST(SGOT) 28 U/L (<=31); Alanine Aminotransfer ALT/SGPT 30 U/L (<=34); Albumin, Serum 4.2 g/dL (3.4-4.8); Alkaline Phosphatase 61 U/L (35-104); Anion Gap 13 (5-15); BUN 27 mg/dL (4-19); BUN/Creat Ratio 17.7 RATIO (10-20); Calcium,Total 10.5 mg/dL (7.6-11.0); Carbon Dioxide 22.4 mmol/L (21.0-32.0); Chloride 100 mmol/L (98-108); Estimated Creatinine Clearance 26.18 ml/min (50-250); Globulin 3.2 g/dL (2.2-4.2); Glucose 320 mg/dL (70-99); Magnesium 1.6 mg/dL (1.5-2.2); Potassium 4.5 mmol/L (3.3-5.1)
[2025-05-07 12:07] LABS: CORTISOL AM 16.80 ug/dL (6.02-18.40)
--- NOTE | 2025-05-07 12:15 | EKG12_ITS ---
Test Reason : Blood Pressure : */* mmHG Vent. Rate : 82 BPM Atrial Rate : 82 BPM P-R Int : 172 ms QRS Dur : 90 ms QT Int : 344 ms P-R-T Axes : 25 -42 121 degrees QTcB Int : 401 ms Sinus rhythm with occasional Premature ventricular complexes Left axis deviation Moderate voltage criteria for LVH, may be normal variant ( R in aVL , [place] product ) T wave abnormality, consider lateral ischemia Abnormal ECG When compared with ECG of 05-May-2025 14:28, Fusion complexes are no longer Present T wave inversion now evident in Lateral leads QT has shortened Confirmed by SHIMON BENAVIDES, EJ ([id number]), editorial intern ESTELA CANTU ([id number]) on 05/09/2025 6:38:54 AM Referred By: Confirmed By: EJ ROBINS MD
--- NOTE | 2025-05-07 12:18 | REHABEVAL_ITS ---
Admission Information Primary Diagnosis:: Poststroke debility/encephalopathy Status Changes from Prescreening?: No changes Identified Actual Problem List:: Pain, ALteration in Cmfrt, Cognitve Impr/Memory Loss, Bladder Incontinence, Alteration in Sleep, Mobility Impaired, Self Care Deficit, Know.Dfct of Medicaitons, Diabetes, Hyperglycemia, Fluid Change-Dehydration and Alteration-Leisure Activ. Potential Problem List:: DVT, Bleeding, Infection, UTI, Aspiration, Falls, Skin Integrity and Depression Risk of Complications DVT: KAREN Hose and - (Heparin 5000 units SQ every 12 hours) Bleeding: Monitor Lab Values, Nursing to Teach Precautions for anti-coagulation therapy., Wound, if applicable, to be assessed every shift. and Stroke patients assessed for lethargy or change in status. Infection: Clinical Staff to Monitor for S/S of infection: and S/S of infection include fever, redness, warmth, etc. Urinary Tract Infection: Monitor for frequency, burning, discomfort, or incontinence. and Nursing will obtain urine sample for urinalysis and C&S when ordered. Aspiration: Clinical staff will monitor for coughing, drooling, congestion., Speech will evaluate swallowing and dsyphasia. and Nursing will monitor patient swallowing during meals. Falls: Patient will be evaluated for Fall Precautions and Patient will be placed on Fall Precautions as indicated per protocol. Skin Breakdown: Nursing will assess skin daily using assessment tool. and Nursing will place on Skin Breakdown Precautions as indicated. Pain: Clinical staff will assess patient's pain level per protocol., Medications will be given, if needed, and the pain level reassessed. and Other methods: Massage, distraction, decrease stimulus, etc. used PRN. Plan of Care Patient requires physician specializing in physical medicine and rehab oversight to provide close medical supervision of rehab issues including: Pain Management, Sleep Problems, Bowel and Bladder, Medical and co-morbidity Management, DVT prophylaxis, Rehabilitation Leadership and Coordination of treatment team Patient needs Physical Therapy: For a minimum of 1 hour and At least 5 out of 7 days Patient needs Physical Therapy to improve:: Mobility, Strengthening, Transfers, Stretching, ROM, Endurance, Stairs, Gait and Balance Patient needs Occupational Therapy: For a minimum of 1 hour and At least 5 out of 7 days Patient needs Occupational Therapy to improve ADL's incl.: Eating, Grooming, Bathing, Dressing, Toileting, Toilet transfers, Community Reintegration, Higher functioning activities, Household tasks, Adaptive Equipment, Splinting and Other activities as determined Patient requires speech therapy: For a minimum of 1 hour and At least 5 out of 7 days Patient requires speech therapy for: Swallowing, Cognition, Language Skills and Compensatory Strategies Patient requires 24/ Rehabilitation Nursing for: Pain Issues, Identifying and preventing risk factors, Monitoring and reporting current medical conditions, Assisting with ambulation, transfer, and all ADL's, Teaching patients about di sease process and medications, Family teaching, Providing safe environment, Bowel and Bladder Issues, Skin integrity and Medication Management Patient needs Strategy Execution Consultant/ Case Management for: Discharge Planning, Arranging Home Equipment or Services and Family Interventions Patient needs Dietary and Nutrition Services for: Adequate Nutrition, Nutri tional Supplements and Nutritional Education Goals Goals Patient will remain: free from falls Patient will perform bed mobility at: MOD I level of assist. Patient will complete transfers from bed to chair at: MOD I level of assist. Patient will ambulate: - (165 feet with least restrictive device at standby assist on various surfaces) Patient will complete upper body dressing at: - Patient will complete lower body dressing at: - Patient will complete toilet transfer at: - (Supervision) Patient will complete toileting at: - (Supervision) Patient will perform bathing at: - (She will complete upper body dressing and lower body dressing with supervision with adaptive equipment as needed.) Patient will perform Tub/Shower transfer at: - (Supervision using DME as needed) Patient will complete grooming at: MOD I level of assist. (She will complete grooming at set up level while standing at the sink) Patient will achieve: - (1 flight of stairs with 1 handrail and cane at contact- guard assist to allow access to her basement laundry. She will also complete 1 curb step with least restrictive device at min assist to allow access to her home.) Patient will have pain level of: of 3 or less Patient's skin will: remain intact Patient will receive: adequate nutrition. Discharge Planning Pt Prognosis for Sig. Practical Improv. w/in Reasonable Time: Fair Estimated Length of stay (days): 21 Anticipated D/C Destination: TBD Was Preadmission Assessment Accurate?: Yes
--- NOTE | 2025-05-07 13:00 | NURSING ---
Patient requires constant cues and redirection from staff. Staff member sitting and supervising patient for safety. Patient took most of her AM meds with many attempts. present.
--- NOTE | 2025-05-07 13:04 | NURSING ---
CAPSULE FILLING MACHINE OPERATOR notified this nurse that Jennifer was refusing the EKG. , RT and this nurse attempted to reason with patient to receive the test. Patient continued to refuse stating, "you all have lied to me too many times, I need a dog like Jae." Patient tearful and upset. Continuing to bring up "a dog like Jae." Attempted to reorient the patient, unsuccessful. This nurse notified Dr. Calle verbally, Dr. Calle said it was okay. No new orders at this time. RT advised nursing to call them if the patient changed her mind about the EKG. CAPSULE FILLING MACHINE OPERATOR remains with patient, daughter and bedside.
--- NOTE | 2025-05-07 15:50 | CHAPLAIN ---
Type of Pastoral Visit ___ Initial Visit ___ Follow-up Visit ___ On-call Visit ___ General Patient Visit ___ Spiritual Assessment ___ Family Conference ___ Bereavement ___ Rapid Response ___ Code Blue ___ Other (describe below) Pastoral Care Referral From ___ Patient ___ Family ___ Nurse ___ Physician ___ [employer] Sales Representative ___ Statistics Teacher ___ Other (describe below) Sacrament/Intervention ___ Active listening ___ Anointing ___ Jain ___ Bereavement ___ Communion ___ Graciela exploration ___ ___ Life review ___ Prayer ___ Reconciliation ___ Sacrament of Sick ___ Supportive presence ___ Wedding ___ Other (describe below) Pastoral Comments patient is sleeping at time of attempted visit; RN says it is best to let her sleep since she did not sleep last night
--- NOTE | 2025-05-07 16:39 | CASEMGMT ---
Social Work SW met with patient's and dtr Nathalia to complete assessment. Educated to Medicare benefit. Educated the goal for Dr. Calle is to get pt stabilized and able to participate in therapy. If unsuccessful, pt may need transferred to geripsych or SNF. Family expressed understanding. Family realistic that regardless, pt likely unable to DC home from IRU, and will need SNF. SW to assist family in navigating DC planning and providing support. Will await recommendations from and follow up at team meeting. Family appreciative. Codie Hall RES HABILITATION ASSISTANT PASTING MACHINE OFFBEARER
[2025-05-07 18:30] LABS: Free T3 2.5 pg/mL (2.18-3.98)
[2025-05-08] VITALS (12 sets, daily range): BP systolic 129–169; BP diastolic 69–90; PULSE 65–100; RESP 16; TEMP 36.2–36.3; O2SAT 94–98
--- NOTE | 2025-05-08 02:01 | NURSING ---
pt has been very restless this hs, getting in and out of bed, in the recliner, to the br . pt reports that her legs are very pain and is sore all over from when she fell at home a couple of week ago. tylenol given as per order scheduled and prn dosing. sitter remains in the room for safety. pt has been able to redirected thus far this hs. sitter reports that pt has probably slept for approximately 30 minutes. pt did take all of her medications this hs except stool softeners(refused, red dye) and her mag 64 can not be crushed and pt will not swallow it whole, not left for the doctor to address in the am
--- NOTE | 2025-05-08 08:14 | PN_ITS ---
Subjective Subjective Afebrile VSS - Maintaining appropriate oxygen saturation on RA Oral intake - FOOD fair to good FLUIDS doing fairly well, especially on thickened liquids. Discussed with nursing -she was pleasant and redirectable last night but only slept for about 30 to 60 minutes. She did sleep a few hours yesterday afternoon. Was not agitated through the night. Reviewed the THERAPY notes Medication list reviewed. Jennifer denies cephalgia, lightheadedness, vertigo, chest pain, cough, shortness of breath, nausea/vomiting/abdominal pain, dysuria and calf pain. Her only complaint today is that sometimes she feels people are bossy. She is not agitated today and she was very cooperative with me. When I explained to her why people are telling her what to do and explained about the hemianopia and left side neglect she understood that people are just trying to prevent her from getting injured. I think that showed pretty good insight especially compared to how she was yesterday. I went in to check her later in the day and she does not have a sitter. she was clam and alert and sitting in the recliner watching TV and sipping on her thickened water.......not agitated at all. Objective Data Objective Data Vital Signs: Vital Signs Temp Pulse Resp BP Pulse Ox O2 Del Method 97.1 F L 85 16 140/90 H 94 Room Air 05/08/25 06:00 05/08/25 06:00 05/08/25 06:00 05/08/25 06:00 05/08/25 07:04 05/08/25 07:04 Oxygen Delivery Method Room Air Weight: 164 lb 6.414 oz Body Mass Index (BMI) 32.3 Intake & Output: Intake and Output for Last 24 Hours 05/06/25 05/07/25 05/08/25 23:59 23:59 23:59 Intake Total 100 / 100 1120 / 1120 60 / 60 Output Total 300 / 550 1400 / 1400 650 / 650 Balance -200 / -450 -280 / -280 -590 / -590 Lab / Micro Data 05/07/25 09:50 05/07/25 09:50 Labs: Laboratory Results - last 24 hr 05/07/25 09:50: WBC 9.1, RBC 4.07 L, Hgb 11.7 L, Hct 34.9 L, MCV 85.7, MCH 28.7, MCHC 33.5, RDW Std Deviation 39.7, RDW Coeff of José 12.7, Plt Count 313, MPV 10.9, Immature Gran % (Auto) 0.600, Neut % (Auto) 78.3 H, Lymph % (Auto) 12.8 L, Nolan % (Auto) 6.7, Eos % (Auto) 0.9, Baso % (Auto) 0.7, Absolute Neuts (auto) 7.1, Absolute Lymphs (auto) 1.16, Nucleated RBC % 0, Sodium 135, Potassium 4.5, Chloride 100, Carbon Dioxide 22.4, Anion Gap 13, BUN 27 H, Creatinine 1.52 H, E stim Creat Clear Calc 26.18 L, Est GFR (MDRD) Non-Af 34 L, BUN/Creatinine Ratio 17.7, Glucose 320 H, Calcium 10.5, Phosphorus 3.2, Magnesium 1.6, Total Bilirubin 0.50, AST 28, ALT 30, Alkaline Phosphatase 61, Total Protein 7.4, Albumin 4.2, Globulin 3.2, Albumin/Globulin Ratio 1.3, Free T4 1.80 H, Free T3 pg/dL 2.5, Cortisol AM Sample 16.80 05/07/25 10:55: POC Glucose 261 H 05/07/25 16:12: POC Glucose 119 H 05/07/25 20:33: POC Glucose 220 H 05/08/25 06:57: POC Glucose 206 H Physical Exam Const alert and no apparent distress Constitutional Narrative: pleasant, talkative, not restless. Making good eye contact with me. General Appearance: cooperative HEENT Mouth: dry mucous membranes Neck supple Resp normal respiratory effort and clear to auscultation bilaterally Effort and Inspection: Negative for tachypneic Cardio regular rate, regular rhythm and no gallops Cardio Narrative: no ectopy GI normal to inspection, nondistended, normoactive bowel sounds, soft to palpation and non-tender GI Narrative: No guarding with palpation. Last bowel movement was yesterday. Extremity no calf tenderness Extremity Narrative: No tremors General Extremity: Negative for edema Assessment & Plan Assessment/Plan (1) Debility: (2) Cerebral infarction: QUALIFIERS: Cerebral infarction mechanism: unspecified mechanism Qualified Code(s): I63.9 - Cerebral infarction, unspecified (3) Hemianopia, homonymous, left: (4) Left-sided neglect: (5) Encephalopathy acute: (6) Behavioral problem: (7) Paranoia: (8) Hypothyroidism: QUALIFIERS: Hypothyroidism type: unspecified Qualified Code(s): E 03.9 - Hypothyroidism, unspecified (9) Meningioma: (10) Coronary artery disease: QUALIFIERS: Coronary Disease-Associated Artery/Lesion type: [place] artery [place] vs. transplanted heart: [place] heart Associated angina: without angina Qualified Code(s): I25.10 - Atherosclerotic heart disease of [place] coronary artery without angina pectoris (11) Hypertension: QUALIFIERS: Hypertension type: unspecified Qualified Code(s): I10 - Essential (primary) hypertension (12) Pulmonary hypertension: (13) Mild left atrial enlargement: (14) Grade II diastolic dysfunction: (15) Dementia: QUALIFIERS: Dementia type: unspecified type Dementia behavioral or psychological symptom: with agitation PLAN: Confusion and agitation wax and wane fairly abruptly.......there is a FH of dementia in her mother. Wondering if she could have Lewy body dementia....... Limit use of antipsychotics as much as possible. (16) Urinary incontinence: QUALIFIERS: Urinary Incontinence type: unspecified incontinence Q ualified Code(s): R32 - Unspecified urinary incontinence PLAN: Plan 1. Continue therapy 2. Add melatonin 3 mg p.o. nightly to the current drug regimen 3. Continue to hold all oral medications for diabetes mellitus. Patient is very confused at timers and intake is erratic. Will use insulin for the time being. Will schedule 3 units with each meal and continue the sliding scale. 4. DC magnesium chloride because it cannot be crushed and changed to Mag-Ox 400 mg daily 5. Change weights to daily 6. Oral intake/fluids is erratic and fluid intake was only fair yesterday. Will place Lasix on hold and also place potassium on hold. Will order daily weights and determine need for diuretics that way. Continue KAREN hose. 7. Recheck a BMP and magnesium Wednesday 8. Check orthostatic vital signs 9. DC Haldol. Communicated to nursing that she is not to get Haldol. Decrease the HS Risperdal to 0.25 mg and add Aricept 5 mg Q HS. There has been a dramatic change in behavior from yesterday to today.......wondering if she could have Lewy Body dementia? she tells me that sometimes she hears voices and there is no one around her. Denies visual hallucinations. Yesterday she initially recognized her when he came in and then later she denied he was her and thought he was an imposter. Could not draw clock or reproduce the design I roselia for her. but, alert and oriented X 4. Delayed memory ...was able to repeat 2 of 4 words I gave her. Will need to follow up with neurology as an OP. I will try and discuss sx and treatment with Dr. Grande this week and refer to him post DC. Charges/Coding Visit Charges Inpatient E&M: 84778 Subs Hosp L2
[2025-05-08] MEDS: Cholecalciferol (VIT D3) 25 MCG TABLET (1,000 UNITS) PO (08:42)
[2025-05-08] MEDS: Heparin Injection (Vial) 5,000 UNIT/ML VIAL 5000 UNIT SC ×2 (08:42→21:27)
[2025-05-08] MEDS: Aspirin E.C. 81 MG Tablet PO (08:42)
[2025-05-08] MEDS: Glucerna Shake 120 ML LIQUID PO ×2 (11:27→16:56)
--- NOTE | 2025-05-08 15:04 | CHAPLAIN ---
Type of Pastoral Visit _x__ Initial Visit ___ Follow-up Visit ___ On-call Visit ___ General Patient Visit ___ Spiritual Assessment ___ Family Conference ___ Bereavement ___ Rapid Response ___ Code Blue ___ Other (describe below) Pastoral Care Referral From ___ Patient _x__ Family ___ Nurse ___ Physician ___ Program Arranger ___ Portable Power Tool Repairer ___ Other (describe below) Sacrament/Intervention _x__ Active listening ___ Anointing ___ Sikhism ___ Bereavement ___ Communion _x__ Graciela exploration ___ _x__ Life review _x__ Prayer ___ Reconciliation ___ Sacrament of Sick _x__ Supportive presence ___ Wedding ___ Other (describe below) Pastoral Comments patient had been seen last week in ICU but she was unresponsive at the time; met family members there then; met again while patient was in PCU; today the patient is resting and is alone in the room; pt welcoming and talkative; pt is pleasant and gives life review, family description, and our purpose in getting strength; 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
[2025-05-08] MEDS: MELATONIN 3 MG TABLET PO (21:26)
[2025-05-09] VITALS (8 sets, daily range): BP systolic 139–163; BP diastolic 78–88; PULSE 74–105; RESP 17; TEMP 37–37.2; O2SAT 93–96; BMI 31.9
--- NOTE | 2025-05-09 04:14 | NURSING ---
last bladder scan completed at this time and pt residual was noted to be 374cc; explained to pt what a straight cath was, pt stated "no we are not doing that". rn was made aware and will notify doctor in the morning
[2025-05-09] MEDS: Aspirin E.C. 81 MG Tablet PO (08:12)
[2025-05-09] MEDS: Cholecalciferol (VIT D3) 25 MCG TABLET (1,000 UNITS) PO (08:12)
[2025-05-09] MEDS: Heparin Injection (Vial) 5,000 UNIT/ML VIAL 5000 UNIT SC ×2 (08:13→20:47)
[2025-05-09] MEDS: Glucerna Shake 120 ML LIQUID PO ×2 (08:13→12:02)
--- NOTE | 2025-05-09 10:33 | PN_ITS ---
Subjective Subjective Afebrile VSS - slightly hypertensive today at 144/78. Will continue to monitor Maintaining appropriate oxygen saturation on RA 95% Oral intake - FOOD fair to good FLUIDS doing well on thickened liquids. Discussed with nursing -she slept the majority of the night but woke at 0400 after having a large BM and was incontinent. She then returned to sleep immediately. Was not agitated through the night. Reviewed the THERAPY notes. repeat swallow study tomorrow. Medication list reviewed. Jennifer denies cephalgia, lightheadedness, vertigo, chest pain, cough, shortness of breath, nausea/vomiting/abdominal pain, dysuria and calf pain. She is very pleasant today. Alert to person, place and year. She became tearful when speaking of her family and how grateful she is for the treatment she is receiving. Objective Data Objective Data Vital Signs: Vital Signs Temp Pulse Resp BP Pulse Ox O2 Del Method 98.6 F 82 17 152/87 H 93 Room Air 05/09/25 06:00 05/09/25 10:00 05/09/25 06:00 05/09/25 10:00 05/09/25 08:42 05/09/25 08:42 Oxygen Delivery Method Room Air Weight: 162 lb 14.746 oz Body Mass Index (BMI) 31.9 Intake & Output: Intake and Output for Last 24 Hours 05/07/25 05/08/25 05/09/25 23:59 23:59 23:59 Intake Total 1120 / 1120 1170 / 1170 440 / 440 Output Total 1400 / 1400 1150 / 1150 420 / 420 Balance -280 / -280 Lab / Micro Data Attestation: I reviewed the patient's lab results. Lab results narrative: from 2 days ago 05/07/25 09:50 05/07/25 09:50 Labs: Laboratory Results - last 24 hr 05/08/25 11:20: POC Glucose 234 H 05/08/25 16:46: POC Glucose 209 H 05/08/25 21:15: POC Glucose 214 H 05/09/25 06:47: POC Glucose 228 H Physical Exam Const alert, oriented x3 and no apparent distress Constitutional Narrative: pleasant, talkative, not restless. Making good eye contact with me. was able to tell me the location, year, her birthday and why she is here. General Appearance: cooperative HEENT Mouth: dry mucous membranes Neck supple Resp normal respiratory effort and clear to auscultation bilaterally Effort and Inspection: Negative for tachypneic Cardio regular rate, regular rhythm and no gallops Cardio Narrative: no ectopy GI normal to inspection, nondistended, normoactive bowel sounds, soft to palpation and non-tender GI Narrative: No guarding with palpation. Last bowel movement was yesterday, per documentation Extremity no calf tenderness Extremity Narrative: No tremors General Extremity: Negative for edema Psych cooperative Appearance: appropriate Assessment & Plan Assessment/Plan (1) Debility: (2) Cerebral infarction: QUALIFIERS: Cerebral infarction mechanism: unspecified mechanism Qualified Code(s): I63.9 - Cerebral infarction, unspecified (3) Hemianopia, homonymous, left: (4) Left-sided neglect: (5) Encephalopathy acute: (6) Behavioral problem: (7) Paranoia: (8) Hypothyroidism: QUALIFIERS: Hypothyroidism type: unspecified Qualified Code(s): E 03.9 - Hypothyroidism, unspecified (9) Meningioma: (10) Coronary artery disease: QUALIFIERS: Coronary Disease-Associated Artery/Lesion type: [place] artery [place] vs. transplanted heart: [place] heart Associated angina: without angina Qualified Code(s): I25.10 - Atherosclerotic heart disease of [place] coronary artery without angina pectoris (11) Hypertension: QUALIFIERS: Hypertension type: unspecified Qualified Code(s): I10 - Essential (primary) hypertension PLAN: *continue to trend BP. Consider adding hydralazine if pressures continue to remain elevated (12) Pulmonary hypertension: (13) Mild left atrial enlargement: (14) Grade II diastolic dysfunction: (15) Dementia: QUALIFIERS: Dementia type: unspecified type Dementia behavioral or psychological symptom: with agitation PLAN: *Limit use of antipsychotics as much as possible. (16) Urinary incontinence: QUALIFIERS: Urinary Incontinence type: unspecified incontinence Q ualified Code(s): R32 - Unspecified urinary incontinence PLAN: Plan 1. Continue therapy 2. Add melatonin 3 mg p.o. nightly to the current drug regimen 3. Continue to hold all oral medications for diabetes mellitus. Patient is very confused at timers and intake is erratic. Will use insulin for the time being. Will schedule 3 units with each meal with sliding scale. 4. DC magnesium chloride because it cannot be crushed and changed to Mag-Ox 400 mg daily 5. Change weights to daily 6. Oral intake/fluids is improving. daily weights and determine need for diuretics that way. Continue KAREN hose. 7. Recheck a BMP and magnesium Wednesday 8. Check orthostatic vital signs 9. DC Haldol. Communicated to nursing that she is not to get Haldol. Decrease the HS Risperdal to 0.25 mg and add Aricept 5 mg Q HS. Pt is sleeping better with this regiment. *Will need to follow up with neurology as an OP. I will try and discuss sx and treatment with Dr. Grande this week and refer to him post DC. Charges/Coding Visit Charges Inpatient E&M: 80867 Subs Hosp L2
[2025-05-09] MEDS: MELATONIN 3 MG TABLET PO (20:48)
[2025-05-09] MEDS: Arthritis Pain Compound 60 CLICK TUBE TOPICAL (20:49)
[2025-05-10] VITALS (12 sets, daily range): BP systolic 141–177; BP diastolic 67–94; PULSE 61–83; RESP 16–18; TEMP 35.9–37.1; O2SAT 92–99; BMI 32.1
[2025-05-10] MEDS: Arthritis Pain Compound 60 CLICK TUBE TOPICAL ×2 (06:22→20:56)
[2025-05-10] MEDS: Cholecalciferol (VIT D3) 25 MCG TABLET (1,000 UNITS) PO (07:46)
[2025-05-10] MEDS: Aspirin E.C. 81 MG Tablet PO (07:46)
[2025-05-10] MEDS: Senna/Docusate Sodium 1 Tablet 2 TABLET PO ×2 (07:47→20:54)
[2025-05-10] MEDS: Heparin Injection (Vial) 5,000 UNIT/ML VIAL 5000 UNIT SC ×2 (07:47→20:55)
--- NOTE | 2025-05-10 10:18 | PCM.PROGNOTE ---
Subjective Subjective Jennifer was seen on team rounds today. Her Umesh and daughter Mirela were present in the room. Daughter Nathalia participated by phone. All questions were answered to their satisfaction. Afebrile VSS -blood pressure over the past 24 hours has ranged from 139/88 to 163/86. Heart rate has ranged from 74-105. Orthostatics were negative on 05/08/2025. Maintaining appropriate oxygen saturation on RA-92 to 96%. Oral intake - FOOD good FLUIDS fair Blood sugar record was reviewed. Blood sugars are not adequately controlled yet. She is only on a sliding insulin scale now because oral medications are on hold due to fluctuating mental status and variable intake. Discussed with nursing -postvoid residual today was 374.......... previously was not retaining. Will need to check a few more postvoid residuals. Reviewed the THERAPY notes Medication list reviewed. Jennifer denies cephalgia, lightheadedness, chest pain, shortness of breath, cough, nausea/vomiting/abdominal pain, dysuria and calf tenderness. Objective Data Objective Data Vital Signs: Vital Signs Temp Pulse Resp BP Pulse Ox O2 Del Method 97.3 F L 74 16 155/67 H 92 Room Air 05/10/25 06:00 05/10/25 07:47 05/10/25 06:00 05/10/25 06:00 05/10/25 07:25 05/10/25 07:25 Oxygen Delivery Method Room Air Weight: 163 lb 12.855 oz Body Mass Index (BMI) 32.1 Intake & Output: Intake and Output for Last 24 Hours 05/08/25 05/09/25 05/10/25 23:59 23:59 23:59 Intake Total 1170 / 1170 1100 / 1100 880 / 880 Output Total 1150 / 1150 770 / 770 Balance 330 / 330 880 / 880 Lab / Micro Data 05/07/25 09:50 05/07/25 09:50 Labs: Laboratory Results - last 24 hr 05/09/25 11:15: POC Glucose 205 H 05/09/25 16:18: POC Glucose 183 H 05/09/25 20:55: POC Glucose 279 H 05/10/25 06:20: POC Glucose 218 H Physical Exam Const alert and no apparent distress Constitutional Narrative: pleasant, talkative, not restless. Making good eye contact with me. No longer requiring a sitter. General Appearance: cooperative HEENT Mouth: dry mucous membranes Neck supple Resp normal respiratory effort and clear to auscultation bilaterally Resp Narrative: No cough. Able to speak in complete sentences. Effort and Inspection: Negative for tachypneic Cardio regular rate, regular rhythm and no gallops Cardio Narrative: no ectopy GI normal to inspection, nondistended, normoactive bowel sounds, soft to palpation and non-tender GI Narrative: No guarding with palpation. Last bowel movement was yesterday. Extremity no calf tenderness Extremity Narrative: No tremors General Extremity: Negative for edema Skin General Skin Exam: no breakdown Rashes: no rashes Neuro Neuro Narrative: No behavior problems since the first night/day in rehab. Still with visual field cuts in the L lateral and R medial upper and lower visual contreras. Psych cooperative Assessment & Plan Assessment/Plan (1) Debility: (2) Cerebral infarction: QUALIFIERS: Cerebral infarction mechanism: unspecified mechanism Qualified Code(s): I63.9 - Cerebral infarction, unspecified (3) Hemianopia, homonymous, left: (4) Left-sided neglect: (5) Encephalopathy acute: (6) Behavioral problem: (7) Paranoia: (8) Hypothyroidism: QUALIFIERS: Hypothyroidism type: unspecified Qualified Code(s): E03.9 - Hypothyroidism, unspecified (9) Meningioma: (10) Coronary artery disease: QUALIFIERS: Coronary Disease-Associated Artery/Lesion type: [place] artery [place] vs. transplanted heart: [place] heart Associated angina: without angina Qualified Code(s): I25.10 - Atherosclerotic heart disease of [place] coronary artery without angina pectoris (11) Hypertension: QUALIFIERS: Hypertension type: unspecified Qualified Code(s): I10 - Essential (primary) hypertension (12) Pulmonary hypertension: (13) Mild left atrial enlargement: (14) Grade II diastolic dysfunction: (15) Dementia: QUALIFIERS: Dementia type: unspecified type Dementia behavioral or psychological symptom: with agitation (16) Urinary incontinence: QUALIFIERS: Urinary Incontinence type: unspecified incontinence Qualified Code(s): R32 - Unspecified urinary incontinence (17) Iatrogenic hyperthyroidism: PLAN: Plan 1. Continue therapy 2. Add glargine 15 units every morning to the current sliding insulin scale and continue to hold oral medications. May be able to restart oral medications next week if behavior stays stable. 3. Would like to be able to wean the antipsychotic..........juan since I think she may have LBD. Will decrease the Risperdal to 0.25 mg twice daily and give the nighttime dose at 2200. Increase melatonin to 6 mg at at bedtime. Dtr Mirela tells me that she thinks Magnolia is having some visual hallucinations. Pt admits to me that she hears voices and when she looks there is no one talking to her. She at times can not recognize her relatives and when they say their name she says that they are not that person. 4. Start Aricept 5 mg nightly. 5. Continue to hold Lasix due to only fair oral intake and polyuria secondary to high blood sugars. Legs are a little swollen because she will not wear KAREN hose and she does not elevate. She has compression stockings at home that she will wear and her family is going to bring them in. 6. BMP and magnesium in the AM. 7. Increase metoprolol to 50 mg every 8 hours. Continue hydralazine 50 mg twice daily and lisinopril 20 mg twice daily. 8. TSH is less than 1 and the T4 is increased at 1.8. She is currently getting 75 mcg daily -WED and 150 mcg on Wednesday. She is hypertensive and tachycardic and has insomnia. Will hold for 2 days and then restart 75 mcg daily. Charges/Coding Visit Charges Inpatient E&M: 01812 Subs Hosp L2
--- NOTE | 2025-05-10 11:07 | SP.MBSS_ITS ---
Modified Barium Swallow Patient Information Study Date: 05/10/25 Study Time: 10:30 Direct Billable Minutes: 100 Total Minutes procedure & reportin Diagnosis: oropharyngeal dysphagia (R13.12) Referring Physician: Reba Calle Reason for Referral: This patient presented to [facility] ED 05/01/2025 by for confusion and AMS, not doing well at home w/ vomiting 5-6X ~ 3 days before admission and poor po intake.Stroke alert was called for expressive aphasia and pt managed for dehydration in the ED. Pt admitted for management of encephalopathy, DKA, and stroke work up. Brain MRI 05/02/2025 - "IMPRESSION: 1. No hemorrhage. 2. Acute ischemia in the right posterior cerebral artery distribution involving the right occipital lobe and portions of the posterior right thalamus. 3. Chronic microvascular ischemic changes and volume loss. Pt underwent a MBSS on 05/03/25 which revealed moderate oropharyngeal dysphagia (R13.12) and esophageal dysphagia (R13.14) w/ recommendations for a Pureed diet with mildly thick liquids; medications crushed in applesauce. Use small bites/sips, pinched-straw sips, slow rate, alternate solids/liquids, and maintain upright posture during and 60 minutes after meals. Feed only when alert; total feed required. Repeat MBSS in 1–3 weeks to reassess aspiration risk and esophageal clearance, with possible GI referral if retention persists. Pt was admitted to [facility] on 05/06/25 for 3 hours of rehab daily to restore functional independence. A repeat MBSS was recommended following regular/thin trials at bedside to assess appropriateness for diet advancement. Medical History: Family history of Alzheimer's disease, Alopecia, Pulmonary hypertension, Mild left atrial enlargement, Grade II diastolic dysfunction, TIA (transient ischemic attack), Hypothyroidism, Congestive heart failure (CHF), Coronary artery disease, Hypertension Current Diet Ordered: puree/mildly thick liquids Dentition: Natural Teeth Mental Status: WNL (sufficient for participation in MBSS) Respiratory Status: Oxygenating on Room Air Penetration-Aspiration Scale Penetration-Aspiration Scale: OBJECTIVE ASSESSMENT OF SWALLOW FUNCTION (QUANTITATIVE – PER TRIAL): PENETRATION / ASPIRATION SCALE (HIGH): 1 = does not enter airway 2 = enters airway/above vocal folds/ejected 3 = enters airway/above vocal folds/not ejected 4 = enters airway/contacts vocal folds/ejected 5 = enters airway/contacts vocal folds/not ejected 6 = enters airway/below vocal folds/ejected 7 = enters airway/below vocal folds/not ejected despite effort 8 = enters airway/below vocal folds/no effort VIDEOFLOROSCOPIC SCALE SCORE (HIGH): Grade I = aspiration of material that has penetrated into the laryngeal vestibule, intact cough reflex Grade II = aspiration < 10 % of the bolus, intact cough reflex Grade III = aspiration of < 10 % of the bolus, reduced cough reflex or aspiration of > 10 % of the bolus, intact cough reflex Grade IV = aspiration of > 10 % of the bolus, reduced cough reflex Penetration-Aspiration Scale Score Thin Liquid via teaspoon: Result: 2= enter airway/above vocal folds/ejected Thin Liquid via teaspoon Trial 2: Result: 2= enter airway/above vocal folds/ejected Thin Liquid via small single sip: cup: Result: 2= enter airway/above vocal folds/ejected Thin Liquid via small single sip: cup Trial 2: Result: 2= enter airway/above vocal folds/ejected Thin Liquid via single sip: straw: Result: 2= enter airway/above vocal folds/ejected Thin Liquid via sequential sips: cup: Result: 2= enter airway/above vocal folds/ejected Pudding: Result: 1= does not enter airway Cookie: Result: 1= does not enter airway Thin Liquid via small single sip: cup Trial 3: Result: 2= enter airway/above vocal folds/ejected Oral Phase Labial Seal: No Labial Escape Tongue Control During Bolus Hold: Cohesive bolus between tongue to palatal seal Bolus Preparation/Mastication: Timely and efficient chewing and mashing Bolus Transport/Lingual Motion: Brisk tongue motion Oral Residue: Trace residue lining oral structures Pharyngeal Phase Initiation of Pharyngeal Swallow: Bolus head at posterior laryngeal surgace of epiglottis Soft Palate Elevation: No bolus between soft palate and pharyngeal wall Laryngeal Elevation: Partial superior movement thyroid cart/partial apprx aryt- epig petiole Anterior Hyoid Excursion: Partial anterior movement Epiglottic Movement: Complete inversion Laryngeal Vestibule Closure at Height of Swallow: Complete; no air/contrast in laryngeal vestibule Pharyngeal Stripping Wave: Present - complete Pharyngoesophageal Segment Opening: Parital distension and partial duration; parital obstruction of flow (CP hypertrophy) Tongue Base Retraction: Narrow column of contrast between tongue base & post. pharyngeal wall Pharyngeal Residue: Trace residue within or on pharyngeal structures Esophageal Phase Esophageal Clearance: Esophageal retention Diagnosis/Impression Diagnosis: mild oropharyngeal dysphagia (R13.12) and esophageal dysphagia (R13.14) .: IMPRESSION: The oral phase is primarily marked by... * Premature pharyngeal bolus entry w/ liquids spilling to the posterior laryngeal surface of the epiglottis prior to swallow onset * Adequate mastication and AP-bolus transportation The pharyngeal phase is primarily marked by... * Delayed swallow onset * Penetration into the laryngeal vestibule (lining the posterior laryngeal surface of the epiglottis) w/ thin liquids * Penetration was completely ejected w/ swallow completion across all liquid trials. * Trace-mild pharyngeal residue, able to clear w/ a spontaneously initiated double swallow * Cricopharyngeal hypertrophy The esophageal phase is primarily marked by... * Retention of pudding bolus in the upper and middle esophagus Recommendations Diet: Regular Textures and Thin Liquids Compensatory Strategies: Small Bites, Small Sips, Multiple Swallows (double/2nd swallow as needed to clear pharyngeal stasis), Sitting upright and Remain sitting upright for 30 minutes after PO intake Supervision: Distant Supervision Recommend Repeat Modified Barium Swallow: No Need for Skilled Speech Therapy Services: Yes Comment: Skilled ST intervention is recommended to assess tolerance w/ advanced food texture and liquid consistency, instruct w/ oropharyngeal strengthening, reinforce compensatory strategy use. Recommended Referrals: GI Consult (consider GI referral post d/c - continued esophageal retention appreciated during MBSS) Education Completed: 1. Described result of evaluation., 2. Pt understands evaluation & agrees with goals and treatment plan. and 7. Pt requires further education on strategies & risks. Status Active ST Patient: Active Contact Information [facility] Speech Therapy:: Rosette Estrada M.A. SOLAR ENGINEER Speech-Language Pathologist [facility] [phone] FAX [phone] [place] [address]
[2025-05-10] MEDS: Insulin Glargine-YFGN 100 UNIT/ML Pen 15 UNIT SC (11:17)
--- NOTE | 2025-05-10 13:17 | CASEMGMT ---
Social Work IDT met with patient, and dtr at bedside, then other dtr participated via conference call for Team meeting. Discussed patient's progress in PT/OT/ST/SN/MD. Educated to Medicare benefit and will provide days once received. spoke with family about possible Lewy Body Dementia. SW provided extensive literature and resources on the dx. Pt will follow up with a neurologist at DC. SW explained once there is a DC date and IDT makes recommendations, SW to assist with DC planning. SW noted to follow family's initial plans as pt will need 24/7 care and unsure if can be primary caregiver. Will ReTeam. SW will continue to follow. Codie Hall COMPENSATOR WORKER ONLINE JOURNALIST
[2025-05-10] MEDS: MELATONIN 3 MG TABLET 6 MG PO (20:53)
[2025-05-11] VITALS (9 sets, daily range): BP systolic 130–185; BP diastolic 70–82; PULSE 63–86; RESP 16–20; TEMP 36.3–36.4; O2SAT 95–97; BMI 32.4
[2025-05-11] MEDS: Arthritis Pain Compound 60 CLICK TUBE TOPICAL ×2 (06:28→21:19)
[2025-05-11 06:37] LABS: Anion Gap 9 (5-15); BUN 25 mg/dL (4-19); BUN/Creat Ratio 18.7 RATIO (10-20); Calcium,Total 9.2 mg/dL (7.6-11.0); Carbon Dioxide 25.9 mmol/L (21.0-32.0); Chloride 101 mmol/L (98-108); Estimated Creatinine Clearance 30.09 ml/min (50-250); Glucose 171 mg/dL (70-99); Magnesium 1.7 mg/dL (1.5-2.2); Potassium 4.4 mmol/L (3.3-5.1)
[2025-05-11] MEDS: Insulin Glargine-YFGN 100 UNIT/ML Pen 15 UNIT SC (08:15)
[2025-05-11] MEDS: Aspirin E.C. 81 MG Tablet PO (08:16)
[2025-05-11] MEDS: Cholecalciferol (VIT D3) 25 MCG TABLET (1,000 UNITS) PO (08:16)
[2025-05-11] MEDS: Heparin Injection (Vial) 5,000 UNIT/ML VIAL 5000 UNIT SC ×2 (08:16→21:28)
[2025-05-11] MEDS: Senna/Docusate Sodium 1 Tablet 2 TABLET PO ×2 (08:24→21:22)
--- NOTE | 2025-05-11 08:26 | PCM.PROGNOTE ---
Subjective Subjective Afebrile Heart rate is within normal limits Blood pressure this morning is 130/74 with a heart rate of 83. Metoprolol was increased to 50 mg 3 times daily yesterday. Pulse ox is 95 to 98% on room air. The last 2 postvoid residuals were 160 and 248. Had an uneventful night and slept well per nursing. Last bowel movement was yesterday. Weight today is 165 pounds and 6 ounces. Weight at presentation to the hospital was 168 pounds and 14 ounces. BMP this morning shows a sodium of 136 and a potassium of 4.4. Lasix and potassium are currently on hold due to poor fluid intake and polyuria secondary to elevated blood sugars. BUN is 25 and the creatinine is 1.32, down from 1.52 on 05/07/2025. Magnesium is 1.7 which is up from 1.6 on 05/07/2025. She is now on Mag-Ox 400 milligrams once daily. No diarrhea. Antithyroid antibodies are pending. No complaints today. Denies CP, cephalgia, lightheadedness, abd pain, N/V, dysuria and calf tenderness. KAREN hose are in place today. Objective Data Objective Data Vital Signs: Vital Signs Temp Pulse Resp BP Pulse Ox O2 Del Method 97.3 F L 83 18 130/74 H 95 Room Air 05/11/25 06:00 05/11/25 06:28 05/11/25 06:00 05/11/25 06:28 05/11/25 06:00 05/11/25 06:00 Oxygen Delivery Method Room Air Weight: 165 lb 5.547 oz Body Mass Index (BMI) 32.4 Intake & Output: Intake and Output for Last 24 Hours 05/09/25 05/10/25 05/11/25 23:59 23:59 23:59 Intake Total 1100 / 1100 2019 340 / 340 Output Total 770 / 770 1500 / 1500 470 / 470 Balance 330 / 330 520 / 520 -130 / -130 Lab / Micro Data 05/07/25 09:50 05/11/25 05:39 Labs: Laboratory Results - last 24 hr 05/10/25 11:47: POC Glucose 261 H 05/10/25 16:05: POC Glucose 151 H 05/10/25 20:52: POC Glucose 162 H 05/11/25 05:39: Sodium 136, Potassium 4.4, Chloride 101, Carbon Dioxide 25.9, Anion Gap 9, BUN 25 H, Creatinine 1.32 H, Estim Creat Clear Calc 30.09 L, Est GFR (MDRD) Non-Af 41 L, BUN/Creatinine Ratio 18.7, Glucose 171 H, Calcium 9.2, Magnesium 1.7 05/11/25 07:00: POC Glucose 182 H Physical Exam Const alert and no apparent distress Constitutional Narrative: Pleasant and very cooperative. Confused. She wanted to know when she was going home and I explained we did not have a DC date yet but, her family is planning on her being in rehab for [facility] ([place], [place]) because they are coming for the TEAM meeting next Wednesday. I told her she would be home for [facility]. She later tokd the ST I said she would be here until [facility]. General Appearance: cooperative Resp clear to auscultation bilaterally Cardio regular rate, regular rhythm and no gallops GI normal to inspection, nondistended, normoactive bowel sounds, soft to palpation and non-tender Extremity no calf tenderness Extremity Narrative: She has some edema of her feet and ankles. Has varicose VV and has not been wearing any compression stockings until today. She wears compression stockings at home. Lungs are CTA. General Extremity: edema Skin General Skin Exam: no breakdown Rashes: no rashes Psych Psych Narrative: Sleeping well at night. No behavioral issues since the first day she was on rehab. Talkative Attitude: No agitated Activity / Motor Behavior: Negative for restless Mood & Affect: Negative for depressed Assessment & Plan Assessment/Plan (1) Debility: (2) Cerebral infarction: QUALIFIERS: Cerebral infarction mechanism: unspecified mechanism Qualified Code(s): I63.9 - Cerebral infarction, unspecified (3) Hemianopia, homonymous, left: (4) Left-sided neglect: (5) Encephalopathy acute: (6) Behavioral problem: (7) Paranoia: (8) Hypothyroidism: QUALIFIERS: Hypothyroidism type: unspecified Qualified Code(s): E03.9 - Hypothyroidism, unspecified (9) Meningioma: (10) Coronary artery disease: QUALIFIERS: Coronary Disease-Associated Artery/Lesion type: [place] artery [place] vs. transplanted heart: [place] heart Associated angina: without angina Qualified Code(s): I25.10 - Atherosclerotic heart disease of [place] coronary artery without angina pectoris (11) Hypertension: QUALIFIERS: Hypertension type: unspecified Qualified Code(s): I10 - Essential (primary) hypertension (12) Pulmonary hypertension: (13) Mild left atrial enlargement: (14) Grade II diastolic dysfunction: (15) Dementia: QUALIFIERS: Dementia type: unspecified type Dementia behavioral or psychological symptom: with agitation (16) Urinary incontinence: QUALIFIERS: Urinary Incontinence type: unspecified incontinence Qualified Code(s): R32 - Unspecified urinary incontinence (17) Iatrogenic hyperthyroidism: PLAN: Plan 1. Continue therapy 2. Check a KUB today for fecal burden. Urine retention related to stroke? Risperdal? Constipation? 3. Discontinue the a.m. dose of Risperdal starting tomorrow. Continue with 0.25 mg at at bedtime. If she continues to do well with no behavioral issues will likely discontinue Risperdal Wednesday or Wednesday. 4. Continue Aricept 5 mg p.o. at at bedtime and 6 mg of melatonin. 5. Continue to monitor postvoid residuals.......... once daily. 6. Levothyroxine was held today and will hold again tomorrow. Restart Wednesday at 75 mcg daily. Will need to repeat TSH and T4 in 1 month Charges/Coding Visit Charges Inpatient E&M: 35724 Subs Hosp L1
[2025-05-11] MEDS: Glucerna Shake 120 ML LIQUID PO (08:31)
--- NOTE | 2025-05-11 14:15 | RAD_ITS ---
PROCEDURE: ABDOMEN SINGLE VIEW 05/11/2025 REASON FOR EXAM: CONSTIPATION TECHNIQUE: Procedure Code: RADABD Modality: DX Procedure: ABDOMEN SINGLE VIEW COMPARISON: None FINDINGS: There is a nonobstructive bowel gas pattern. There is oral contrast throughout the colon. There is multilevel degenerative disc disease of the thoracolumbar spine. There is mild dextroscoliosis of the lumbar spine. RAD/Abdomen Single View IMPRESSION: No acute abnormality. Other findings as noted. Reading Location: [place] [address]
--- NOTE | 2025-05-11 16:33 | CASEMGMT ---
Social Work SW phoned dtr, Nathalia, left detailed VM that Medicare approved 16 days with DC 05/22. educated to change in Team day d/t holiday and this worker will follow up next to review DC options. Codie Hall HELPER MAINTENANCE CLEANING POURER
[2025-05-11] MEDS: MELATONIN 3 MG TABLET 6 MG PO (21:22)
[2025-05-12] VITALS (10 sets, daily range): BP systolic 130–176; BP diastolic 58–85; PULSE 62–96; RESP 16–18; TEMP 36.3–37.5; O2SAT 94–97; BMI 32.2
[2025-05-12] MEDS: Arthritis Pain Compound 60 CLICK TUBE TOPICAL ×2 (05:18→21:39)
[2025-05-12] MEDS: Cholecalciferol (VIT D3) 25 MCG TABLET (1,000 UNITS) PO (07:53)
[2025-05-12] MEDS: Senna/Docusate Sodium 1 Tablet 2 TABLET PO (07:53)
[2025-05-12] MEDS: Aspirin E.C. 81 MG Tablet PO (07:54)
[2025-05-12] MEDS: Glucerna Shake 120 ML LIQUID PO ×2 (08:02→16:50)
[2025-05-12] MEDS: Heparin Injection (Vial) 5,000 UNIT/ML VIAL 5000 UNIT SC ×2 (10:48→21:43)
[2025-05-12] MEDS: Insulin Glargine-YFGN 100 UNIT/ML Pen 15 UNIT SC (10:48)
[2025-05-12] MEDS: MELATONIN 3 MG TABLET 6 MG PO (21:43)
[2025-05-13] VITALS (10 sets, daily range): BP systolic 142–181; BP diastolic 66–88; PULSE 62–86; RESP 16–18; TEMP 35.6–36.4; O2SAT 95–99; BMI 32.2
[2025-05-13] MEDS: Arthritis Pain Compound 60 CLICK TUBE TOPICAL ×2 (05:40→21:18)
[2025-05-13] MEDS: Aspirin E.C. 81 MG Tablet PO (08:22)
[2025-05-13] MEDS: Cholecalciferol (VIT D3) 25 MCG TABLET (1,000 UNITS) PO (08:22)
[2025-05-13] MEDS: Senna/Docusate Sodium 1 Tablet 2 TABLET PO (08:23)
[2025-05-13] MEDS: Glucerna Shake 120 ML LIQUID PO ×2 (08:24→16:58)
[2025-05-13] MEDS: Insulin Glargine-YFGN 100 UNIT/ML Pen 15 UNIT SC (09:53)
[2025-05-13] MEDS: Heparin Injection (Vial) 5,000 UNIT/ML VIAL 5000 UNIT SC ×2 (09:54→21:18)
[2025-05-13] MEDS: MELATONIN 3 MG TABLET 6 MG PO (21:17)
[2025-05-14] VITALS (10 sets, daily range): BP systolic 149–172; BP diastolic 67–92; PULSE 60–94; RESP 15–17; TEMP 36.3–36.4; O2SAT 96; BMI 32.9
[2025-05-14] MEDS: Arthritis Pain Compound 60 CLICK TUBE TOPICAL ×2 (05:27→21:23)
[2025-05-14] MEDS: Aspirin E.C. 81 MG Tablet PO (08:35)
[2025-05-14] MEDS: Senna/Docusate Sodium 1 Tablet 2 TABLET PO ×2 (08:36→21:25)
[2025-05-14] MEDS: Heparin Injection (Vial) 5,000 UNIT/ML VIAL 5000 UNIT SC ×2 (08:37→21:24)
[2025-05-14] MEDS: Cholecalciferol (VIT D3) 25 MCG TABLET (1,000 UNITS) PO (08:37)
[2025-05-14] MEDS: Insulin Glargine-YFGN 100 UNIT/ML Pen 15 UNIT SC (08:38)
[2025-05-14] MEDS: Glucerna Shake 120 ML LIQUID PO ×2 (08:39→11:17)
--- NOTE | 2025-05-14 10:23 | PN_ITS ---
Subjective Subjective Afebrile VSS -blood pressure is still high. Currently on metoprolol 50 mg every 8 hours, lisinopril 20 mg p.o. twice daily and hydralazine 50 mg every 12 hours. Maintaining appropriate oxygen saturation on RA Oral intake - FOOD-excellent FLUIDS good The blood sugar record was reviewed. Fasting blood sugar yesterday was low at 79. She was 158 at bedtime last night and 200 this morning. Discussed with nursing - no problems that need addressed. No behavior issues. She has been very cooperative and pleasant. Reviewed the THERAPY notes Medication list reviewed. She denies cephalgia, lightheadedness, chest pain, shortness of breath, cough, nausea/vomiting/abdominal pain, dysuria and calf pain. Sometimes she asks very appropriate questions and seems to have good insight into what got her here. At other times she says things that are bizarre. She tells me things that "people" have said and they just are not true. Objective Data Objective Data Vital Signs: Vital Signs Temp Pulse Resp BP Pulse Ox O2 Del Method 97.4 F L 79 15 172/92 H 96 Room Air 05/14/25 05:27 05/14/25 08:37 05/14/25 05:27 05/14/25 08:34 05/14/25 05:27 05/14/25 05:27 Oxygen Delivery Method Room Air Weight: 167 lb 12.348 oz Body Mass Index (BMI) 32.9 Intake & Output: Intake and Output for Last 24 Hours 05/12/25 05/13/25 05/14/25 23:59 23:59 23:59 Intake Total 1400 / 1400 1450 / 1450 870 / 870 Output Total 2475 / 2475 1700 / 1700 730 / 730 Balance -1075 / -1075 -250 / -250 140 / 140 Lab / Micro Data 05/07/25 09:50 05/11/25 05:39 Labs: Laboratory Results - last 24 hr 05/13/25 11:09: POC Glucose 256 H 05/13/25 16:07: POC Glucose 79 05/13/25 21:27: POC Glucose 158 H 05/14/25 06:45: POC Glucose 200 H Physical Exam Const alert and no apparent distress General Appearance: cooperative Resp clear to auscultation bilaterally Cardio regular rate, regular rhythm and no gallops GI normal to inspection, nondistended, normoactive bowel sounds, soft to palpation and non-tender Extremity no calf tenderness Extremity Narrative: She has some edema of her feet and ankles. Has varicose VV and has not been wearing any compression stockings until today. She wears compression stockings at home. Lungs are CTA. Skin General Skin Exam: no breakdown Rashes: no rashes Psych Psych Narrative: Sleeping well at night. No behavioral issues since the first day she was on rehab. Talkative Attitude: No agitated Activity / Motor Behavior: Negative for restless Mood & Affect: Negative for depressed Assessment & Plan Assessment/Plan (1) Debility: (2) Cerebral infarction: QUALIFIERS: Cerebral infarction mechanism: unspecified mechanism Qualified Code(s): I63.9 - Cerebral infarction, unspecified (3) Hemianopia, homonymous, left: (4) Left-sided neglect: (5) Encephalopathy acute: (6) Behavioral problem: (7) Paranoia: (8) Hypothyroidism: QUALIFIERS: Hypothyroidism type: unspecified Qualified Code(s): E 03.9 - Hypothyroidism, unspecified (9) Meningioma: (10) Coronary artery disease: QUALIFIERS: Coronary Disease-Associated Artery/Lesion type: [place] artery [place] vs. transplanted heart: [place] heart Associated angina: without angina Qualified Code(s): I25.10 - Atherosclerotic heart disease of [place] coronary artery without angina pectoris (11) Hypertension: QUALIFIERS: Hypertension type: unspecified Qualified Code(s): I10 - Essential (primary) hypertension (12) Pulmonary hypertension: (13) Mild left atrial enlargement: (14) Grade II diastolic dysfunction: (15) Dementia: QUALIFIERS: Dementia type: unspecified type Dementia behavioral or psychological symptom: with agitation (16) Urinary incontinence: QUALIFIERS: Urinary Incontinence type: unspecified incontinence Q ualified Code(s): R32 - Unspecified urinary incontinence (17) Iatrogenic hyperthyroidism: PLAN: Plan 1. Continue therapy 2. She is eating very well so we will restart Amaryl 2 mg twice daily. Continue glargine 15 units daily. Change sliding scale insulin to 3 times daily AC. Continue scheduled insulin at mealtimes for now and will try to control her sugars with 1 dose of glargine daily and oral medications. 3. Increase the hydralazine to 50 mg every 3 times daily 4. Hold Risperdal tonight. 5. Add Catapres 0.1 mg every 6 hours as needed systolic greater than 169 or diastolic greater than 84. 6. 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 She tells me that she would like to follow up with Dr. Pisano for endocrinology going forward rather the security engineer she sees from [facility]. she would also like to consider a new PCP.......one associated with this hospital because she does not want to go to another hospital in [place] if she gets "sick" Will need to discuss with her family. Charges/Coding Visit Charges Inpatient E&M: 63880 Subs Hosp L1
--- NOTE | 2025-05-14 14:32 | CASEMGMT ---
Discharge Planning Referral sent via [facility] to [facility]. Christy Paiz DC Planning Asst.
--- NOTE | 2025-05-14 14:38 | CASEMGMT ---
Addendum entered by Codie Hall 05/14/25 16:21: SW phoned to update that [facility] cannot accept. Inquired about additional choices. requested [facility] and [facility]. SW sent referrals via [employer]. Original Note: Social Work SW received multiple calls with this date asking questions on DC plans and services available. SW educated to recommendations for 24/7 care, which can be provided at home with nonskilled HHC or SNF. Educated to OOP cost for nonskilled HHC; insurance coverage with skilled HHC and for SNF for skilled services. also inquired about grab bars. SW to provide resources lists for all inquired services in pt's room. appreciative. spoke with dtrs and requesting referral to [facility] for skilled. SW agreed and will provide outcome once known. Codie Hall [employer]AYA ENGINEER [employer]IC AUTOGRAPHER
[2025-05-14] MEDS: MELATONIN 3 MG TABLET 6 MG PO (21:24)
[2025-05-15] VITALS (11 sets, daily range): BP systolic 130–156; BP diastolic 61–85; PULSE 60–83; RESP 16; TEMP 36.4–36.5; O2SAT 95–97; BMI 33.0
[2025-05-15] MEDS: Arthritis Pain Compound 60 CLICK TUBE TOPICAL ×2 (06:25→21:30)
--- NOTE | 2025-05-15 07:49 | PN_ITS ---
Subjective Subjective Afebrile VSS -blood pressures are doing better today. The blood pressure has ranged from 143/61 (this a.m.) he to 166/91 yesterday afternoon. Heart rate is within normal limits. Maintaining appropriate oxygen saturation on RA Oral intake - FOOD good FLUIDS good Blood sugar record was reviewed. Blood sugar was low at supper at 78. She received no insulin and Amaryl was held. The blood sugar at at bedtime was elevated at 208. Fasting this morning is 185. She got 2 units of insulin this AM. Weight is up 3-4 lbs. Discussed with nursing - Was found in another room last night. Walking in the torres to the other room with a wet depends. No agitation or aggression. Zyprexa was held last night. Reviewed the THERAPY notes Medication list reviewed. Occasional urinary incontinence. Jennifer denies cephalgia, lightheadedness, chest pain, cough, shortness of breath, nausea/vomiting/abdominal pain, dysuria and calf tenderness. She has no complaints. Has not had any adverse reactions to Aricept. Objective Data Objective Data Vital Signs: Vital Signs Temp Pulse Resp BP Pulse Ox O2 Del Method 97.6 F L 61 16 143/65 H 95 Room Air 05/15/25 06:00 05/15/25 06:26 05/15/25 06:00 05/15/25 06:26 05/15/25 06:00 05/15/25 06:00 Oxygen Delivery Method Room Air Weight: 168 lb 6.931 oz Body Mass Index (BMI) 33.0 Intake & Output: Intake and Output for Last 24 Hours 05/13/25 05/14/25 05/15/25 23:59 23:59 23:59 Intake Total 1450 / 1450 1950 / 1950 550 / 550 Output Total 1700 / 1700 2080 / 2080 1070 / 1070 Balance -250 / -250 -130 / -130 -520 / -520 Lab / Micro Data 05/07/25 09:50 05/11/25 05:39 Labs: Laboratory Results - last 24 hr 05/11/25 05:39: Thyroglobulin Antibody < 1.0, Thyroid Peroxidase Ab 05/14/25 11:11: POC Glucose 243 H 05/14/25 16:42: POC Glucose 78 05/14/25 22:05: POC Glucose 208 H 05/15/25 06:35: POC Glucose 185 H Physical Exam Const alert and no apparent distress Constitutional Narrative: Pleasant and sitting in the recliner at the bedside. Happy about getting her hair done today. Talkative and making good eye contact. General Appearance: cooperative Orientation / Consciousness: confused Resp clear to auscultation bilaterally Resp Narrative: Able to speak in complete sentences. No cough with deep breathing. Effort and Inspection: Negative for tachypneic Cardio regular rate, regular rhythm and no gallops GI normal to inspection, nondistended, normoactive bowel sounds, soft to palpation and non-tender GI Narrative: No guarding with palpation. Extremity no calf tenderness Extremity Narrative: The ankle edema comes and goes depending on whether she has compression stockings on or not. Skin General Skin Exam: no breakdown Rashes: no rashes Psych Psych Narrative: Sleeping well at night. No behavioral issues since the first day she was on rehab. Talkative. Attitude: No agitated Activity / Motor Behavior: Negative for restless Mood & Affect: Negative for depressed Assessment & Plan Assessment/Plan (1) Debility: (2) Cerebral infarction: QUALIFIERS: Cerebral infarction mechanism: unspecified mechanism Qualified Code(s): I63.9 - Cerebral infarction, unspecified (3) Hemianopia, homonymous, left: (4) Left-sided neglect: (5) Encephalopathy acute: (6) Behavioral problem: (7) Paranoia: (8) Hypothyroidism: QUALIFIERS: Hypothyroidism type: unspecified Qualified Code(s): E 03.9 - Hypothyroidism, unspecified (9) Meningioma: (10) Coronary artery disease: QUALIFIERS: Coronary Disease-Associated Artery/Lesion type: [place] artery [place] vs. transplanted heart: [place] heart Associated angina: without angina Qualified Code(s): I25.10 - Atherosclerotic heart disease of [place] coronary artery without angina pectoris (11) Hypertension: QUALIFIERS: Hypertension type: unspecified Qualified Code(s): I10 - Essential (primary) hypertension (12) Pulmonary hypertension: (13) Mild left atrial enlargement: (14) Grade II diastolic dysfunction: (15) Dementia: QUALIFIERS: Dementia type: unspecified type Dementia behavioral or psychological symptom: with agitation (16) Urinary incontinence: QUALIFIERS: Urinary Incontinence type: unspecified incontinence Q ualified Code(s): R32 - Unspecified urinary incontinence (17) Iatrogenic hyperthyroidism: PLAN: Plan 1. Continue therapy 2. Continue to hold Risperdal at bedtime 3. Continue melatonin and Aricept at bedtime. 4. DC Glargine and continue Metformin BID, Amaryl BID and Tradjenta. Continue SSI and ACHS blood sugars 5. BMP and MAG in the AM 6. Restart Lasix 20 mg in the a.m. but dose only every 48 hours. 7. Continue the current antihypertensive regimen and continue to monitor blood pressures closely. Goal blood pressure is less than 130/80. Would like to be able to control BS's on oral medications but, may need to give Glargine oncce a day Charges/Coding Visit Charges Inpatient E&M: 38683 Subs Hosp L1
[2025-05-15] MEDS: Aspirin E.C. 81 MG Tablet PO (09:33)
[2025-05-15] MEDS: Heparin Injection (Vial) 5,000 UNIT/ML VIAL 5000 UNIT SC ×2 (09:34→21:31)
[2025-05-15] MEDS: Senna/Docusate Sodium 1 Tablet 2 TABLET PO ×2 (09:34→21:32)
[2025-05-15] MEDS: Cholecalciferol (VIT D3) 25 MCG TABLET (1,000 UNITS) PO (09:34)
--- NOTE | 2025-05-15 14:50 | CASEMGMT ---
Social Work Phone call placed to pt's spouse and updated that [facility] accepted. SW requesting spouse's preferred provider. Spouse now requesting referral be sent to [facility] and also states he will need to visit [facility] and [facility] to determine his preference. [facility] and SW encouraged spouse to visit facilities so a choice can be made. Spouse understanding. SW to continue to follow. INGRID Clifton
[2025-05-15] MEDS: MELATONIN 3 MG TABLET 6 MG PO (21:32)
[2025-05-16] VITALS (9 sets, daily range): BP systolic 139–162; BP diastolic 72–87; PULSE 75–90; RESP 16; TEMP 36.3; O2SAT 94; BMI 32.8
[2025-05-16] MEDS: Arthritis Pain Compound 60 CLICK TUBE TOPICAL ×2 (04:43→21:50)
[2025-05-16] MEDS: Senna/Docusate Sodium 1 Tablet 2 TABLET PO (07:50)
[2025-05-16] MEDS: Heparin Injection (Vial) 5,000 UNIT/ML VIAL 5000 UNIT SC ×2 (07:51→21:59)
[2025-05-16] MEDS: Cholecalciferol (VIT D3) 25 MCG TABLET (1,000 UNITS) PO (07:51)
[2025-05-16] MEDS: Aspirin E.C. 81 MG Tablet PO (07:51)
--- NOTE | 2025-05-16 07:52 | PCM.PROGNOTE ---
Subjective Subjective Afebrile VSS -systolic blood pressure is elevated this morning at 157 but the diastolic is within goal at 72. She did not sleep very well last night and this may be a reflection of that. Heart rate is within normal limits. Has not required any as needed clonidine. Maintaining appropriate oxygen saturation on RA Oral intake - FOOD excellent FLUIDS good The blood sugar record was reviewed. Glargine was held yesterday. She received a total of 10 units of lispro per sliding scale. Blood sugars are coming under better control. There was only 1 blood sugar greater than 200 yesterday and it was 237. No hypoglycemia. weight is up 3-4 lbs in the past 10 days. Diuretics were on hold.......She has KAREN hose on but, she is drinking a lot of water. Discussed with nursing - was restless last night and up most of the night. Reviewed the THERAPY notes Medication list reviewed. Jennifer is aware that she was not able to sleep last night and she brought it up with me. She denies dizziness, headache, chest pain, shortness of breath, orthopnea, dysuria. Objective Data Objective Data Vital Signs: Vital Signs Temp Pulse Resp BP Pulse Ox O2 Del Method 97.4 F L 75 16 157/72 H 94 Room Air 05/16/25 06:00 05/16/25 06:00 05/16/25 06:00 05/16/25 06:00 05/16/25 06:00 05/16/25 06:00 Oxygen Delivery Method Room Air Weight: 167 lb 8.821 oz Body Mass Index (BMI) 32.8 Intake & Output: Intake and Output for Last 24 Hours 05/14/25 05/15/25 05/16/25 23:59 23:59 23:59 Intake Total 1950 / 1950 2410 / 2410 150 / 150 Output Total 2080 / 2080 1820 / 1820 200 / 200 Balance -130 / -130 590 / 590 -50 / -50 Lab / Micro Data 05/07/25 09:50 05/11/25 05:39 Labs: Laboratory Results - last 24 hr 05/15/25 11:09: POC Glucose 237 H 05/15/25 16:31: POC Glucose 191 H 05/15/25 21:43: POC Glucose 166 H 05/16/25 06:08: POC Glucose 154 H Physical Exam Const alert and no apparent distress Constitutional Narrative: pleasant. No agitation. General Appearance: cooperative Resp clear to auscultation bilaterally Resp Narrative: Able to speak in complete sentences. No cough with deep breathing. Effort and Inspection: Negative for tachypneic Cardio regular rate, regular rhythm and no gallops GI normal to inspection, nondistended, normoactive bowel sounds, soft to palpation and non-tender GI Narrative: No guarding with palpation. Extremity no calf tenderness Extremity Narrative: The ankle edema comes and goes depending on whether she has compression stockings on or not. She has TEDs on today and her wt has gone up 3-4 LBs in the last 10 days. Lasix was restarted yesterday at 20 mg Q 48H. Skin General Skin Exam: no breakdown Rashes: no rashes Assessment & Plan Assessment/Plan (1) Debility: (2) Cerebral infarction: QUALIFIERS: Cerebral infarction mechanism: unspecified mechanism Qualified Code(s): I63.9 - Cerebral infarction, unspecified (3) Hemianopia, homonymous, left: (4) Left-sided neglect: (5) Encephalopathy acute: (6) Behavioral problem: (7) Paranoia: (8) Hypothyroidism: QUALIFIERS: Hypothyroidism type: unspecified Qualified Code(s): E03.9 - Hypothyroidism, unspecified (9) Meningioma: (10) Coronary artery disease: QUALIFIERS: Coronary Disease-Associated Artery/Lesion type: [place] artery [place] vs. transplanted heart: [place] heart Associated angina: without angina Qualified Code(s): I25.10 - Atherosclerotic heart disease of [place] coronary artery without angina pectoris (11) Hypertension: QUALIFIERS: Hypertension type: unspecified Qualified Code(s): I10 - Essential (primary) hypertension (12) Pulmonary hypertension: (13) Mild left atrial enlargement: (14) Grade II diastolic dysfunction: (15) Dementia: QUALIFIERS: Dementia type: unspecified type Dementia behavioral or psychological symptom: with agitation (16) Urinary incontinence: QUALIFIERS: Urinary Incontinence type: unspecified incontinence Qualified Code(s): R32 - Unspecified urinary incontinence (17) Iatrogenic hyperthyroidism: PLAN: Plan 1. Continue therapy 2. Restart Risperdal 0.25 mg at at bedtime. Continue melatonin 6 mg at at bedtime. 3. Increase a.m. Amaryl to 3 mg. Continue sliding scale insulin and continue to hold glargine. 4. BMP, magnesium and H&H on Wednesday 5. Will be satisfied if we can get all BS's less than 200 in this 79 YO pt with dementia and many comorbidities. GFR is < 45 so can not increase Metformin. Currently on 750 MG BID and tolerating with no diarrhea and no acidosis. If can not get controlled on oral meds will add a dose of Glargine once a day. Continue to monitor blood sugars AC and at bedtime. 6. Continue Lasix 20 mg q. OD and continue daily weights. Will place a 1500 cc fluid restriction on the current diet. Charges/Coding Visit Charges Inpatient E&M: 60248 Subs Hosp L1
--- NOTE | 2025-05-16 08:04 | CASEMGMT ---
Addendum entered by Codie Hall 05/16/25 11:55: provided update that family has chosen [facility] for skilled services at [place]. SW updated [facility] and [facility] and [facility]. Plan: [place] 05/22 to [facility], skilled Original Note: Social Work SW phoned to update that [facility] cannot accept. stated he wants to tour [facility] and [facility] before making a decision. SW requested have decision by Team meeting Wednesday. agreed. Codie Hall SLATE SPLITTER MACHINE RIVETER
[2025-05-16] MEDS: Potassium Chloride Oral Tablet 20 MEQ PO (09:22)
[2025-05-16] MEDS: Insulin Glargine-YFGN 100 UNIT/ML Pen 10 UNIT SC (22:01)
[2025-05-16] MEDS: MELATONIN 3 MG TABLET 6 MG PO (22:03)
[2025-05-17] VITALS (9 sets, daily range): BP systolic 121–163; BP diastolic 68–86; PULSE 65–87; RESP 16; TEMP 36.2–37.3; O2SAT 95–96; BMI 32.8
[2025-05-17] MEDS: Arthritis Pain Compound 60 CLICK TUBE TOPICAL ×2 (04:56→23:06)
[2025-05-17] MEDS: Aspirin E.C. 81 MG Tablet PO (07:41)
[2025-05-17] MEDS: Cholecalciferol (VIT D3) 25 MCG TABLET (1,000 UNITS) PO (07:43)
[2025-05-17] MEDS: Senna/Docusate Sodium 1 Tablet 2 TABLET PO ×2 (07:43→23:03)
[2025-05-17] MEDS: Heparin Injection (Vial) 5,000 UNIT/ML VIAL 5000 UNIT SC ×2 (09:21→23:07)
[2025-05-17] MEDS: MELATONIN 3 MG TABLET 6 MG PO (23:07)
[2025-05-17] MEDS: Insulin Glargine-YFGN 100 UNIT/ML Pen 10 UNIT SC (23:16)
[2025-05-18] VITALS (8 sets, daily range): BP systolic 156–184; BP diastolic 73–86; PULSE 17–83; RESP 16–19; TEMP 36.7–36.9; O2SAT 97–98; BMI 32.8; BMI 32.4
[2025-05-18 05:54] LABS: Hematocrit 32.5 % (37-47); Hemoglobin 10.4 g/dL (12.0-15.0)
[2025-05-18] MEDS: Arthritis Pain Compound 60 CLICK TUBE TOPICAL ×2 (05:57→20:36)
[2025-05-18 07:27] LABS: Anion Gap 14 (5-15); BUN 16 mg/dL (4-19); BUN/Creat Ratio 11.1 RATIO (10-20); Calcium,Total 8.6 mg/dL (7.6-11.0); Carbon Dioxide 23.2 mmol/L (21.0-32.0); Chloride 99 mmol/L (98-108); Estimated Creatinine Clearance 26.97 ml/min (50-250); Glucose 125 mg/dL (70-99); Magnesium 1.7 mg/dL (1.5-2.2); Potassium 3.8 mmol/L (3.3-5.1)
[2025-05-18] MEDS: Potassium Chloride Oral Tablet 20 MEQ PO (07:42)
[2025-05-18] MEDS: Aspirin E.C. 81 MG Tablet PO (07:42)
[2025-05-18] MEDS: Cholecalciferol (VIT D3) 25 MCG TABLET (1,000 UNITS) PO (07:42)
[2025-05-18] MEDS: Heparin Injection (Vial) 5,000 UNIT/ML VIAL 5000 UNIT SC ×2 (07:42→20:37)
[2025-05-18] MEDS: Glucerna Shake 120 ML LIQUID PO (07:46)
--- NOTE | 2025-05-18 09:05 | PN_ITS ---
Subjective Subjective Jennifer was seen on team rounds today. Jennifer's , daughter Mirela and daughter Guillermo were present in the room. All questions were answered to their satisfaction. Afebrile VSS -blood pressures over the past 24 hours have ranged from 121/72 163/86. Heart rate has ranged from 61-87. Maintaining appropriate oxygen saturation on RA Oral intake - FOOD good FLUIDS she is currently on a 1500 cc fluid restriction. Fluid intake yesterday was 1490 and she had 2250 out for fluid balance of -768. The blood sugar record was reviewed. Blood sugars are still not adequately controlled on metformin 750 mg twice daily, Amaryl 3 mg in the morning and 2 mg with supper, glargine 10 units at night and Tradjenta 5 mg daily. Discussed with nursing -she slept well last night and the night before with reinstituting the Risperdal 0.25 mg at at bedtime. Reviewed the THERAPY notes Medication list reviewed. All recent labs were personally reviewed. Hemoglobin is 10.4 which is down from 11.7 but, she has more fluid on board. Sodium is 136 and the potassium is 3.8. BUN is 16, down from 25 on 05/11/2025. Creatinine is 1.48 which is within her baseline. Fasting blood sugar this morning was 125. Calcium is normal. Magnesium is still low at 1.7. Objective Data Objective Data Vital Signs: Vital Signs Temp Pulse Resp BP Pulse Ox O2 Del Method 98.1 F 61 16 160/73 H 97 Room Air 05/18/25 06:00 05/18/25 06:00 05/18/25 06:00 05/18/25 06:00 05/18/25 06:00 05/18/25 06:00 Oxygen Delivery Method Room Air Weight: 165 lb 5.547 oz Body Mass Index (BMI) 32.4 Intake & Output: Intake and Output for Last 24 Hours 05/16/25 05/17/25 05/18/25 23:59 23:59 23:59 Intake Total 1350 / 1350 1490 / 1490 290 / 290 Output Total 1700 / 1700 2250 / 2550 1100 / 1100 Balance -350 / -350 -760 / -1060 -810 / -810 Lab / Micro Data 05/18/25 05:41 05/18/25 05:41 Labs: Laboratory Results - last 24 hr 05/17/25 11:01: POC Glucose 272 H 05/17/25 16:05: POC Glucose 209 H 05/17/25 22:59: POC Glucose 195 H 05/18/25 05:41: Hgb 10.4 L, Hct 32.5 L, Sodium 136, Potassium 3.8, Chloride 99, Carbon Dioxide 23.2, Anion Gap 14, BUN 16, Creatinine 1.48 H, Estim Creat Clear Calc 26.97 L, Est GFR (MDRD) Non-Af 35 L, BUN/Creatinine Ratio 11.1, Glucose 125 H, Calcium 8.6, Magnesium 1.7 05/18/25 06:45: POC Glucose 74 Physical Exam Const alert and no apparent distress Constitutional Narrative: Asking good questions and has some good insight. We talked about the 2 nights she did not get the Risperdal and the fact that she did not sleep. I told her about the not sleeping and the wandering in the halls in a dripping Depends and going into other peoples rooms and she had no recollection. She is not asking me about my today and she knows who I am. General Appearance: cooperative HEENT moist oral mucous membranes Neck supple Resp clear to auscultation bilaterally Resp Narrative: Able to speak in complete sentences. No cough with deep breathing. Effort and Inspection: Negative for tachypneic Cardio regular rate, regular rhythm and no gallops GI normal to inspection, nondistended, normoactive bowel sounds, soft to palpation and non-tender GI Narrative: No guarding with palpation. Extremity Extremity Narrative: She has the KAREN hose on today and the edema in the LE's is better. She has lost 2 lbs in the past 2 days. Skin General Skin Exam: no breakdown Rashes: no rashes Psych cooperative Psych Narrative: Very pleasant and cooperative. Appearance: appropriate Assessment & Plan Assessment/Plan (1) Debility: (2) Cerebral infarction: QUALIFIERS: Cerebral infarction mechanism: unspecified mechanism Qualified Code(s): I63.9 - Cerebral infarction, unspecified (3) Hemianopia, homonymous, left: (4) Left-sided neglect: (5) Encephalopathy acute: (6) Behavioral problem: (7) Paranoia: (8) Hypothyroidism: QUALIFIERS: Hypothyroidism type: unspecified Qualified Code(s): E 03.9 - Hypothyroidism, unspecified (9) Meningioma: (10) Coronary artery disease: QUALIFIERS: Coronary Disease-Associated Artery/Lesion type: [place] artery [place] vs. transplanted heart: [place] heart Associated angina: without angina Qualified Code(s): I25.10 - Atherosclerotic heart disease of [place] coronary artery without angina pectoris (11) Hypertension: QUALIFIERS: Hypertension type: unspecified Qualified Code(s): I10 - Essential (primary) hypertension (12) Pulmonary hypertension: (13) Mild left atrial enlargement: (14) Grade II diastolic dysfunction: (15) Dementia: QUALIFIERS: Dementia type: unspecified type Dementia behavioral or psychological symptom: with agitation (16) Urinary incontinence: QUALIFIERS: Urinary Incontinence type: unspecified incontinence Q ualified Code(s): R32 - Unspecified urinary incontinence (17) Iatrogenic hyperthyroidism: PLAN: Plan 1. Continue therapy 2. DC Tradjenta and metformin and continue Amaryl. She is going to follow up with Dr. King marcelo RUANO. 3. Continue glargine at at bedtime 4. Start lispro 5 units with each meal and continue sliding scale insulin 3 times daily AC 5. Potassium is 3.8 and the creatinine is stable. Will try increasing lisinopril to 3 times daily and continue hydralazine 50 3 times daily and metoprolol 50 3 times daily. If the creat increases with the increase in the Lisinopril will get a CTA of the abd to look at the renal arteries. 6. Recheck lab on Wednesday 7. Continue the Lasix every 48 hours and continue to monitor the weight daily. 8. Continue Risperdal 0.25 mg nightly 9. Increase Mag-Ox to 400 twice daily I told Jennifer again today that I think she has dementia and that I think it is LBD because she hallucinates at times, she is intermittently very confused and has been combative at times and on other days she is much better and asks appropriate questions and has insight into why she is on rehab. Her mother of complications of dementia. She was upset but, I reassured her that there is better treatment now than when her mother was alive and there is new research being done all the time. Charges/Coding Visit Charges Inpatient E&M: 64132 Subs Hosp L2
--- NOTE | 2025-05-18 13:03 | CASEMGMT ---
Team meeting held with pt, pt's and two daughters present. PT/OT/ST/SN/Physician updated pt and family on pt progress while in the Rehab unit. PT is doing well and has made progress with therapy. SW explained that last covered day in [place] is 05/21 with a discharge of 05/22. Pt has been accepted at [facility] skilled level of care. Family is agreeable and would prefer transportation be arranged with [facility] for WC van. SW to continue to follow for DC planning. INGRID Clifton
--- NOTE | 2025-05-18 15:14 | CASEMGMT ---
Social Work PASRR completed in [facility] for admission to [facility]. Transportation arranged with [facility] for 1400 garbage pick up worker via [employer] Van on 05/22. Pt, pt's family and bedside nurse notified of dc time. Plan: 05/22 @1400 discharge to [facility], skilled level of care INGRID Clifton
[2025-05-18] MEDS: Insulin Glargine-YFGN 100 UNIT/ML Pen 8 UNIT SC (20:35)
[2025-05-18] MEDS: Senna/Docusate Sodium 1 Tablet 2 TABLET PO (20:37)
[2025-05-18] MEDS: MELATONIN 3 MG TABLET 6 MG PO (22:13)
[2025-05-19] VITALS (10 sets, daily range): BP systolic 128–176; BP diastolic 73–84; PULSE 61–91; RESP 16–18; TEMP 36.6; O2SAT 95–96; BMI 32.5
[2025-05-19] MEDS: Arthritis Pain Compound 60 CLICK TUBE TOPICAL ×2 (06:13→22:20)
[2025-05-19] MEDS: Senna/Docusate Sodium 1 Tablet 2 TABLET PO ×2 (07:45→22:17)
[2025-05-19] MEDS: Heparin Injection (Vial) 5,000 UNIT/ML VIAL 5000 UNIT SC ×2 (07:46→22:18)
[2025-05-19] MEDS: Cholecalciferol (VIT D3) 25 MCG TABLET (1,000 UNITS) PO (07:46)
[2025-05-19] MEDS: Aspirin E.C. 81 MG Tablet PO (07:46)
[2025-05-19] MEDS: MELATONIN 3 MG TABLET 6 MG PO (22:18)
[2025-05-19] MEDS: Insulin Glargine-YFGN 100 UNIT/ML Pen 8 UNIT SC (22:19)
[2025-05-20] VITALS (9 sets, daily range): BP systolic 136–171; BP diastolic 56–89; PULSE 70–82; RESP 17; TEMP 36.1–36.6; O2SAT 96–98; BMI 32.5; BMI 32.7
[2025-05-20] MEDS: Arthritis Pain Compound 60 CLICK TUBE TOPICAL ×2 (04:59→20:53)
[2025-05-20] MEDS: Aspirin E.C. 81 MG Tablet PO (07:31)
[2025-05-20] MEDS: Senna/Docusate Sodium 1 Tablet 2 TABLET PO ×2 (07:31→20:56)
[2025-05-20] MEDS: Cholecalciferol (VIT D3) 25 MCG TABLET (1,000 UNITS) PO (07:35)
[2025-05-20] MEDS: Potassium Chloride Oral Tablet 20 MEQ PO (07:36)
[2025-05-20] MEDS: Heparin Injection (Vial) 5,000 UNIT/ML VIAL 5000 UNIT SC ×2 (09:29→21:04)
[2025-05-20] MEDS: NIFEdipine 60 MG Tablet PO (10:23)
[2025-05-20] MEDS: Insulin Glargine-YFGN 100 UNIT/ML Pen 8 UNIT SC (20:54)
[2025-05-20] MEDS: MELATONIN 3 MG TABLET 6 MG PO (20:57)
[2025-05-21] VITALS (9 sets, daily range): BP systolic 117–151; BP diastolic 58–82; PULSE 63–88; RESP 15–18; TEMP 36.6–36.9; O2SAT 96–98; BMI 32.8
[2025-05-21 05:41] LABS: Hematocrit 30.8 % (37-47); Hemoglobin 10.4 g/dL (12.0-15.0); Mean Corp Hgb Conc 33.8 g/dL (32-36); Mean Corpuscular Volume 88.3 fL (81-99); Mean Platelet Vol. 10.4 fl (6.2-12.0); Platelet Count 219 K/mm3 (150-450); RBC Distribution Width CV 13.5 % (11.6-14.6); RBC Distribution Width SD 43.4 fl (35.1-43.9); Red Blood Count 3.49 M/mm3 (4.2-5.4); White Blood Count 6.5 K/mm3 (4.4-11.0)
[2025-05-21] MEDS: Arthritis Pain Compound 60 CLICK TUBE TOPICAL ×2 (05:55→20:58)
[2025-05-21 06:18] LABS: AST(SGOT) 24 U/L (<=31); Alanine Aminotransfer ALT/SGPT 22 U/L (<=34); Albumin, Serum 3.6 g/dL (3.4-4.8); Alkaline Phosphatase 38 U/L (35-104); Anion Gap 8 (5-15); BUN 13 mg/dL (4-19); BUN/Creat Ratio 12.3 RATIO (10-20); Calcium,Total 9.0 mg/dL (7.6-11.0); Carbon Dioxide 26.4 mmol/L (21.0-32.0); Chloride 100 mmol/L (98-108); Estimated Creatinine Clearance 37.11 ml/min (50-250); Globulin 2.3 g/dL (2.2-4.2); Glucose 165 mg/dL (70-99); Magnesium 2.0 mg/dL (1.5-2.2); Potassium 4.0 mmol/L (3.3-5.1)
--- NOTE | 2025-05-21 07:23 | PN_ITS ---
Subjective Subjective Afebrile VSS -blood pressure since starting on Procardia XL 60 mg yesterday has ranged from 136/56 to 140/70. Heart rate is within normal limits. Maintaining appropriate oxygen saturation on RA Oral intake - FOOD excellent FLUIDS he is on 1500 cc fluid restriction and yesterday had 2200........ fluid balance was -350. Overnight she was - 880. Discussed with nursing - awakened last night and stated she was hearing voices. Reviewed the THERAPY notes Medication list reviewed. Started on Procardia XL yesterday. Lisinopril was discontinued. BP was increasing with Lisinopril. Scheduled mealtime insulin was increased to 7 units TID yesterday. BS's are coming under better control. All lab was personally reviewed. White blood cell count is normal at 6.5. Hemoglobin is stable at 10.4 and the platelets are within normal limits. Has normochromic normocytic indices with a normal RDW. Sodium is 135 and the potassium is 4.0. The BUN is 13 with a creatinine of 1.08. Magnesium is normal at 2. LFTs are normal. Objective Data Objective Data Vital Signs: Vital Signs Temp Pulse Resp BP Pulse Ox O2 Del Method 96.9 F L 77 17 136/56 H 96 Room Air 05/20/25 17:37 05/21/25 05:55 05/20/25 17:37 05/20/25 22:00 05/20/25 17:37 05/20/25 22:00 Oxygen Delivery Method Room Air Weight: 166 lb 10.711 oz Body Mass Index (BMI) 32.7 Intake & Output: Intake and Output for Last 24 Hours 05/19/25 05/20/25 05/21/25 23:59 23:59 23:59 Intake Total 1260 / 1260 2200 / 2200 120 / 120 Output Total 2225 / 2225 2550 / 2950 1000 / 1000 Balance -965 / -965 -350 / -750 -880 / -880 Lab / Micro Data 05/21/25 05:31 05/21/25 05:31 Labs: Laboratory Results - last 24 hr 05/20/25 11:22: POC Glucose 145 H 05/20/25 16:20: POC Glucose 210 H 05/20/25 20:52: POC Glucose 203 H 12/01/25 05:31: WBC 6.5, RBC 3.49 L, Hgb 10.4 L, Hct 30.8 L, MCV 88.3, MCH 29.8, MCHC 33.8, RDW Std Deviation 43.4, RDW Coeff of José 13.5, Plt Count 219, MPV 10.4, Sodium 135, Potassium 4.0, Chloride 100, Carbon Dioxide 26.4, Anion Gap 8, BUN 13, Creatinine 1.08, Estim Creat Clear Calc 37.11 L, Est GFR (MDRD) Non-Af 52 L, BUN/Creatinine Ratio 12.3, Glucose 165 H, Calcium 9.0, Magnesium 2.0, Total Bilirubin 0.28, AST 24, ALT 22, Alkaline Phosphatase 38, Total Protein 5.9, Albumin 3.6, Globulin 2.3, Albumin/Globulin Ratio 1.5 Physical Exam Const alert and no apparent distress General Appearance: cooperative Resp clear to auscultation bilaterally Resp Narrative: Able to speak in complete sentences. No cough with deep breathing. Effort and Inspection: Negative for tachypneic Cardio regular rate, regular rhythm and no gallops GI normal to inspection, nondistended, normoactive bowel sounds, soft to palpation and non-tender GI Narrative: No guarding with palpation. Skin General Skin Exam: no breakdown Rashes: no rashes Psych cooperative Psych Narrative: Very pleasant and cooperative. Was awake for a time in the middle of the night due to auditory hallucinations. Appearance: appropriate Attitude: No agitated Assessment & Plan Assessment/Plan (1) Debility: (2) Cerebral infarction: QUALIFIERS: Cerebral infarction mechanism: unspecified mechanism Qualified Code(s): I63.9 - Cerebral infarction, unspecified PLAN: MRI showed acute ischemia in the right posterior cerebral artery distribution involving the right occipital lobe and portions of the posterior right thalamus. (3) Hemianopia, homonymous, left: (4) Left-sided neglect: PLAN: Has improved with therapy (5) Encephalopathy acute: (6) Behavioral problem: PLAN: Currently taking Melatonin 6 mg, Aricept 5 mg and Risperdal 0.25 mg at HS. Risperdal has been weaned down from 0.25 mg in the AM and 0.5 mg at night. An attempt was made to Dc the HS dose but, she was up at night, wandering around into other peoples rooms and she did not sleep. She has been very cooperative after the first 2 days in rehab. (7) Paranoia: (8) Hypothyroidism: QUALIFIERS: Hypothyroidism type: unspecified Qualified Code(s): E 03.9 - Hypothyroidism, unspecified (9) Iatrogenic hyperthyroidism: PLAN: Came to us on levothyroxine 75 mcg Wednesday through Wednesday and 150 mcg on Wednesday. TSH was low (for her age) at 0.576 and the T4 was high at 1.8. She was tachycardic, having trouble with insomnia and having loose stool. We held 2 doses and started her back on 75 mcg daily. Will need to have a T4 and TSH rechecked in 4 weeks. (10) Meningioma: PLAN: Anterior aspect of the right frontal lobe (11) Coronary artery disease: QUALIFIERS: Coronary Disease-Associated Artery/Lesion type: [place] artery [place] vs. transplanted heart: [place] heart Associated angina: without angina Qualified Code(s): I25.10 - Atherosclerotic heart disease of [place] coronary artery without angina pectoris PLAN: Transthoracic echocardiogram showed mild to moderate inferior and posterior hypokinesis. The ejection fraction was 55%. She had stage II diastolic dysfunction. The left atrium was mildly enlarged and she had mild mitral and tricuspid valve insufficiency. Right ventricular systolic pressure was estimated to be 47. (12) Type 2 diabetes mellitus: QUALIFIERS: Diabetes mellitus chcf insulin use: without intermodal owner operator truck driver use Diabetes mellitus complication status: with kidney complications D iabetes mellitus complication detail: with chronic kidney disease Chronic kidney disease stage: stage 3 (moderate) Chronic kidney disease stage 3 subtype: unspecified whether 3a or 3b Qualified Code(s): E11.22 - Type 2 diabetes mellitus with diabetic chronic kidney disease; N18.30 - Chronic kidney disease, stage 3 unspecified PLAN: Has never been on insulin in the past. HGBA1C was 8.9 on 05/02/25. She is now on Lantus, scheduled Lispro at Meals (+ SSI)and Amaryl. Tradjenta and Glucophage were discontinued at the advice of endocrinology. She was referred to Dr. Pisano. (13) Hypertension: QUALIFIERS: Hypertension type: unspecified Qualified Code(s): I10 - Essential (primary) hypertension PLAN: Very difficult to get under control. Multiple medication changes were needed. 1 day prior to DC the BP's are controlled on Hydralazine 50 mg TID, metoprolol tartrate 50 mg every 8 hours and Procardia XL 60 mg daily. (14) Pulmonary hypertension: PLAN: Estimated right ventricular systolic pressure on transthoracic echocardiogram was 47 which is consistent with moderate pulmonary hypertension. This likely contributes to the chronic lower extremity edema. She also has varicosities and she sits with her legs dependent most of the day. KAREN hose help with the edema but she does not like to wear them and wears knee-high's instead. (15) Mild left atrial enlargement: (16) Grade II diastolic dysfunction: (17) Dementia: QUALIFIERS: Dementia type: Lewy body dementia Dementia severity: moderate Dementia behavioral or psychological symptom: with other behavioral disturbance Qualified Code(s): G31.83 - Neurocognitive disorder with Lewy bodies; F02.B18 - Dementia in other diseases classified elsewhere, moderate, with other behavioral disturbance PLAN: Suspect Lewy Body Dementia. She has hallucinations and sx wax and wane from day to day. Some days she is oriented X 4 and recalls staff names and other days he is very confused. Aricept was started on 05/10/25 at 5 mg Q HS and she has had no adverse side effects. She was very paranoid at admission to rehab. Also agitated, argumentative and combative. Denied knowing her and stated he was an imposter. (18) Maternal family history of dementia: PLAN: Mother had dementia which started when she was in her 70's (19) Urinary incontinence: QUALIFIERS: Urinary Incontinence type: unspecified incontinence Q ualified Code(s): R32 - Unspecified urinary incontinence PLAN: This is sporadic. (20) Chronic renal failure (CRF), stage 3 (moderate): QUALIFIERS: Chronic kidney disease stage 3 subtype: unspecified whether 3a or 3b Qualified Code(s): N18.30 - Chronic kidney disease, stage 3 unspecified PLAN: GFR varies between stage IIIa and IIIb. 1 day prior to discharge the GFR was 52. Continue 1500 cc fluid restriction and 20 mg of Lasix Q 48H. PLAN: Plan 1. Continue therapy 2. DC tomorrow to [facility] 3. Increase mealtime insulin to 8 units with breakfast and 10 units with lunch and supper. Conitinue the Lantus 8 units at HS. Continue Amaryl 3 mg in the Am and 2 mg at supper. Continue the current antihypertensive regimen. 4. F/U with neurology as OP Charges/Coding Visit Charges Inpatient E&M: 45047 Subs Hosp L1
[2025-05-21] MEDS: NIFEdipine 60 MG Tablet PO (07:59)
[2025-05-21] MEDS: Cholecalciferol (VIT D3) 25 MCG TABLET (1,000 UNITS) PO (07:59)
[2025-05-21] MEDS: Senna/Docusate Sodium 1 Tablet 2 TABLET PO ×2 (08:00→20:56)
[2025-05-21] MEDS: Aspirin E.C. 81 MG Tablet PO (08:00)
[2025-05-21] MEDS: Heparin Injection (Vial) 5,000 UNIT/ML VIAL 5000 UNIT SC ×2 (08:02→20:52)
--- NOTE | 2025-05-21 10:28 | TREXTCAR_ITS ---
Diet Diet Order/Speech Therapy: INPATIENT Hospital Diet / Speech Therapy Order(s) 05/06/25 15:20 Carb [Diet: Carbohydrate Controlled] Food consistency:: Regular Liquid Consistency:: Regular/Thin Dietary Modifications:: Cardiac / Heart Healthy Fluid restriction:: 1500 mL Routine Orders/Code Status Enema Type: Fleetz Enema Frequency: Daily PRN Suppository Type: Dulcolax 10mg Suppository Frequency: Daily PRN Code Status: Full Code DC O2, CPAP, BIPAP needs Home O2 Discharge instructions: No Wound(s) QUENTIN: Wound Type: Abrasion Therapies Weight Bearing: Full weight bearing Extremity Affected:: Bilateral Lower Physical Therapy: Eval and Treat Occupational Therapy: Eval and Treat Speech Therapy: Eval and Treat Problem/Diagnosis (1) Debility: Status: Acute Code(s): R53.81 - Other malaise (2) Cerebral infarction: Status: Acute Code(s): I63.9 - Cerebral infarction, unspecified Plan: MRI showed acute ischemia in the right posterior cerebral artery distribution involving the right occipital lobe and portions of the posterior right thalamus. 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 Risperdal has been weaned down from 0.25 mg in the AM and 0.5 mg at night. An attempt was made to Dc the HS dose but, she was up at night, wandering around into other peoples rooms and she did not sleep. She has been very cooperative after the first 2 days in rehab. (7) Paranoia: Status: Resolved Code(s): F22 - Delusional disorders (8) Hypothyroidism: Status: Chronic Code(s): E03.9 - Hypothyroidism, unspecified (9) Iatrogenic hyperthyroidism: Status: Acute Code(s): E05.80 - Other thyrotoxicosis without thyrotoxic crisis or storm Plan: Came to us on levothyroxine 75 mcg Wednesday through Wednesday and 150 mcg on Wednesday. TSH was low (for her age) at 0.576 and the T4 was high at 1.8. She was tachycardic, having trouble with insomnia and having loose stool. We held 2 doses and started her back on 75 mcg daily. Will need to have a T4 and TSH rechecked in 4 weeks. (10) Meningioma: Status: Chronic Code(s): D32.9 - Benign neoplasm of meninges, unspecified Plan: Anterior aspect of the right frontal lobe (11) Coronary artery disease: Status: Chronic Code(s): I25.10 - Atherosclerotic heart disease of [place] coronary artery without angina pectoris Plan: Transthoracic echocardiogram showed mild to moderate inferior and posterior hypokinesis. The ejection fraction was 55%. She had stage II diastolic dysfunction. The left atrium was mildly enlarged and she had mild mitral and tricuspid valve insufficiency. Right ventricular systolic pressure was estimated to be 47. (12) Type 2 diabetes mellitus: Status: Chronic Code(s): E11.9 - Type 2 diabetes mellitus without complications Plan: Has never been on insulin in the past. HGBA1C was 8.9 on 05/02/25. She is now on Lantus, scheduled Lispro at Meals (+ SSI)and Amaryl. Tradjenta and Glucophage were discontinued at the advice of endocrinology. She was referred to Dr. Pisano. (13) Hypertension: Status: Chronic Code(s): I10 - Essential (primary) hypertension Plan: Very difficult to get under control. Multiple medication changes were needed. 1 day prior to DC the BP's are controlled on Hydralazine 50 mg TID, metoprolol tartrate 50 mg every 8 hours and Procardia XL 60 mg daily. (14) Pulmonary hypertension: Status: Chronic Code(s): I27.20 - Pulmonary hypertension, unspecified Plan: Estimated right ventricular systolic pressure on transthoracic echocardiogram was 47 which is consistent with moderate pulmonary hypertension. This likely contributes to the chronic lower extremity edema. She also has varicosities and she sits with her legs dependent most of the day. KAREN hose help with the edema but she does not like to wear them and wears knee-high's instead. (15) Mild left atrial enlargement: Status: Chronic Code(s): I51.7 - Cardiomegaly (16) Grade II diastolic dysfunction: Status: Chronic Code(s): I51.89 - Other ill-defined heart diseases (17) Dementia: Status: Suspected Code(s): F03.90 - Unspecified dementia, unspecified severity, without behavioral disturbance, psychotic disturbance, mood disturbance, and anxiety Plan: Suspect Lewy Body Dementia. She has hallucinations and sx wax and wane from day to day. Some days she is oriented X 4 and recalls staff names and other days he is very confused. Aricept was started on 05/10/25 at 5 mg Q HS and she has had no adverse side effects. She was very paranoid at admission to rehab. Also agitated, argumentative and combative. Denied knowing her and stated he was an imposter. (18) Maternal family history of dementia: Status: Chronic Code(s): Z81.8 - Family history of other mental and behavioral disorders Plan: Mother had dementia which started when she was in her 70's (19) Urinary incontinence: Status: Acute Code(s): R32 - Unspecified urinary incontinence Plan: This is sporadic. (20) Chronic renal failure (CRF), stage 3 (moderate): Status: Chronic Code(s): N18.30 - Chronic kidney disease, stage 3 unspecified Plan: GFR varies between stage IIIa and IIIb. 1 day prior to discharge the GFR was 52. Continue 1500 cc fluid restriction and 20 mg of Lasix Q 48H. Plan 1. DC to [facility] tomorrow for additional therapy 2. 30 days event monitor was applied on 05/10. will need follow up with cardiology after they review the results of the heart monitor. 3. F/U with Dr. Grande for stroke and suspected Lewy Body dementia. 4. F/U with Dr. Perez at [place] from [facility] 5. F/U with Dr. Pisano for DM II and iatrogenic hyperthyroidism. 6. Avoid antipsychotics if at all possible because they are contraindicated in pts with Lewy Body......juan NO HALDOL. If an antipsychotic is necessary would increase the Risperdal. Use the lowest dose possible. 7. Will defer ordering a sleep study to OP docs. She has unexplained pulmonary HTN. Allergies/Procedures Done in Hospital Allergies No Known Allergies Allergy (Verified 05/01/25 07:50) Procedures: Transthoracic Echo (Mild to moderate inferior and posterior hypokinesis with an ejection fraction of 55%. Stage II diastolic dysfunction, left atrial enlargement and mild mitral and tricuspid valve insufficiency. The right ventricular systolic pressure was estimated to be 47 which is consistent with moderate pulmonar) Type of Care/Length of Stay Estimated LOS: Convalescent Care Less Than 30 days Type of Care Needed: Skilled Rehab Potential: Good Prognosis: Good Additional Orders/Day of Discharge H&P will serve as current which was dated: 05/06/25 Day of Discharge: 05/22/25 Dietary and Speech Recommendations Dietitian Recommendations/Changes: Continue to cardiac; consistent carbohydrate diet per REHABILITATION PHYSICIAN recommendations. Will monitor weight trends. Speech Linguistic Eval Summary: An informal cognitive-linguistic evaluation was completed today due to the patient’s agitation and paranoia, which prevented participation in the BCAT. The patient was oriented to name, current location, month, date, and year. She responded to simple yes/no questions with approximately 50% accuracy. She followed 1–2 step commands with 100% accuracy and 3-step commands with 50% accuracy. Confrontation naming was 2/3, and her speech remained clear and fully intelligible throughout the portion of the assessment she tolerated. Left visual neglect appreciated w/ patient not recognizing items placed on the left. The patient’s was present and reported that she is typically alert and cognitively intact at baseline, independently managing her medications—which he described as somewhat complex—using a pill organizer. During the session, the patient became increasingly agitated and ultimately refused to continue with further questioning. Follow Up Care Please follow up with your Primary Care Physician in: Following DC from [facility] Please Follow Up With: BC When: 1-2 weeks after the 30 day event monitor is removed. Please Follow Up With: Óscar Pisano MD When: within a couple weeks of DC. Please Follow Up With: David Grande MD When: has appt scheduled which is listed later in this document Discharge Plan Admission Admit Date/Time: 05/06/25 14:48 Primary Reason for Your Visit: post stroke debility Attending Provider: Reba Calle Primary Care Provider: Micky Perez Discharge Orders/Prescriptions Prescriptions: New donepezil 5 mg Tablet 5 mg PO QHS Qty: 1 0RF acetaminophen 500 mg Tablet 1,000 mg PO Q8 Qty: 1 0RF glimepiride 2 mg Tablet 2 mg PO SUPPER Qty: 1 0RF glimepiride 1 mg Tablet 3 mg PO BREAKFAST Qty: 1 0RF bisacodyl 10 mg Suppository 10 mg [place] X1 PRN (Reason: Constipation) Qty: 1 0RF hydralazine 50 mg Tablet 50 mg PO TID Qty: 1 0RF furosemide 20 mg Tablet 20 mg PO Q48H Qty: 1 0RF insulin lispro [Humalog KwikPen Insulin] 100 unit/mL Insulin Pen See Rx Instructions .ROUTE .COMPLEX Qty: 15 0RF Protocol: 4. Sliding Scale Insulin High-Med Dosing Condition: 150-199 mg/dl = 2 units Condition: 200-259 mg/dl = 4 units Condition: 260-324 mg/dl = 6 units Condition: 325-374 mg/dl = 8 units Condition: 375-409 mg/dl = 10 units Condition: 410-449 mg/dl = 11 units Condition: Greater than 449 call physician Protocol Text: Suggested for: - Patients on Total Daily Insulin Dose of 56-80 units - Patient who are known to be insulin resistant or septic HIGH MEDIUM DOSING ALGORITHM Rx Instructions: 2 units for blood sugar 152-199, 4 units for BS 200-259, 6 units for BS 260- 324, 8 units for BS 325-375 and 10 units for BS > 375 insulin glargine-yfgn 100 unit/mL (3 mL) Insulin Pen 8 unit subcut QHS Qty: 1 0RF insulin lispro [Humalog KwikPen Insulin] 100 unit/mL Insulin Pen 8 unit subcut BREAKFAST Qty: 15 0RF risperidone 0.25 mg Tablet 0.25 mg PO QHS Qty: 1 0RF melatonin 3 mg Tablet 6 mg PO QHS Qty: 1 0RF levothyroxine 75 mcg Tablet 75 mcg PO DAILY@0600 Qty: 1 0RF potassium chloride 20 mEq Tablet,Er Particles/Crystals 20 meq PO Q48H Qty: 1 0RF magnesium oxide 400 mg (241.3 mg magnesium) Tablet 400 mg PO BIDCM Qty: 1 0RF magnesium hydroxide 400 mg/5 mL Suspension 30 ml PO X1 PRN (Reason: Constipation) Qty: 1 0RF nifedipine 60 mg Tablet Extended Release 24hr 60 mg PO DAILY Qty: 1 0RF metoprolol tartrate 50 mg Tablet 50 mg PO Q8H Qty: 1 0RF insulin lispro [Humalog KwikPen Insulin] 100 unit/mL Insulin Pen 8 unit subcut LUNCH Qty: 15 0RF insulin lispro [Humalog KwikPen Insulin] 100 unit/mL Insulin Pen 10 unit subcut SUPPER Qty: 15 0RF Continued aspirin [Adult Aspirin Regimen] 81 mg tablet,delayed release (DR/EC) 81 mg PO DAILY cholecalciferol (vitamin D3) 25 mcg (1,000 unit) capsule 25 mcg PO DAILY atorvastatin 40 mg Tablet 40 mg PO QHS Qty: 0 0RF sennosides-docusate sodium [Stimulant Laxative Plus] 8.6-50 mg Tablet 2 tab PO BID Discontinued labetalol 200 mg tablet 600 mg PO BID hydralazine 25 mg tablet 50 mg PO Q12H levothyroxine 75 mcg tablet 75 mcg PO MOTUWETHFRSA metformin 1,000 mg tablet 1,000 mg PO BID lisinopril 30 mg tablet 30 mg PO BID furosemide 20 mg tablet 20 mg PO DAILY Januvia 100 mg tablet 100 mg PO DAILY glimepiride 4 mg tablet 4 mg PO BID acetaminophen 325 mg Tablet 650 mg PO Q6H PRN PRN (Reason: Pain 1-10 Or Fever>100.7) Qty: 0 0RF risperidone 0.25 mg Tablet 0.25 mg PO BID Qty: 0 0RF potassium chloride 20 mEq Tablet,Er Particles/Crystals 40 meq PO DAILYCM 2 Days Qty: 4 0RF levothyroxine [Synthroid] 150 mcg tablet 150 mcg PO CONNELL heparin (porcine) 5,000 unit/mL solution 5,000 unit subcut Q12H Referrals / Follow Up: Kt Bueno DO [Med Staff - Active Staff, Cardiology] - 06/12/25 1:00 pm David Grande MD [Non-Staff -Ordering Privileges, Neurology] - 06/05/25 10:30 am Óscar Pisano MD [Med Staff - Courtesy Staff, Endocrinology] Disposition Disposition (needs filled in before D/C Order can be placed): [facility] (2) Cerebral infarction Qualifiers: Cerebral infarction mechanism: unspecified mechanism Qualified Code(s): I63.9 - Cerebral infarction, unspecified (8) Hypothyroidism Qualifiers: Hypothyroidism type: unspecified Qualified Code(s): E03.9 - Hypothyroidism, unspecified (11) Coronary artery disease Qualifiers: Associated angina: without angina Coronary Disease-Associated Artery/Lesion type: [place] artery [place] vs. 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 Qualified Code(s): E11.22 - Type 2 diabetes mellitus with diabetic chronic kidney disease; N18.30 - Chronic kidney disease, stage 3 unspecified (13) Hypertension Qualifiers: Hypertension type: unspecified Qualified Code(s): I10 - Essential (primary) hypertension (17) Dementia Qualifiers: Dementia behavioral or psychological symptom: with other behavioral disturbance Dementia severity: moderate Dementia type: Lewy body dementia Qualified Code(s): G31.83 - Neurocognitive disorder with Lewy bodies; F02.B18 - Dementia in other diseases classified elsewhere, moderate, with other behavioral disturbance (19) Urinary incontinence Qualifiers: Urinary Incontinence type: unspecified incontinence Qualified Code(s): R32 - Unspecified urinary incontinence (20) Chronic renal failure (CRF), stage 3 (moderate) Qualifiers: Chronic kidney disease stage 3 subtype: unspecified whether 3a or 3b Qualified Code(s): N18.30 - Chronic kidney disease, stage 3 unspecified
--- NOTE | 2025-05-21 14:19 | EX.DISCHREH ---
Providers Date of Admission: 05/06/25 Date of Discharge: 05/22/25 Primary Care Physician: Dr. Micky Perez MD Reason For Visit: CVA Diagnosis Discharge Diagnosis (1) Debility: Status: Acute Code(s): R53.81 - Other malaise (2) Cerebral infarction: Status: Acute Code(s): I63.9 - Cerebral infarction, unspecified Qualifiers: Cerebral infarction mechanism: unspecified mechanism Qualified Code(s): I63.9 - Cerebral infarction, unspecified Plan: MRI showed acute ischemia in the right posterior cerebral artery distribution involving the right occipital lobe and portions of the posterior right thalamus. 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 Risperdal has been weaned down from 0.25 mg in the AM and 0.5 mg at night. An attempt was made to Dc the HS dose but, she was up at night, wandering around into other peoples rooms and she did not sleep. She has been very cooperative after the first 2 days in rehab. (7) Paranoia: Status: Resolved Code(s): F22 - Delusional disorders (8) Hypothyroidism: Status: Chronic Code(s): E03.9 - Hypothyroidism, unspecified Qualifiers: Hypothyroidism type: unspecified Qualified Code(s): E03.9 - Hypothyroidism, unspecified (9) Iatrogenic hyperthyroidism: Status: Acute Code(s): E05.80 - Other thyrotoxicosis without thyrotoxic crisis or storm Plan: Came to us on levothyroxine 75 mcg Wednesday through Wednesday and 150 mcg on Wednesday. TSH was low (for her age) at 0.576 and the T4 was high at 1.8. She was tachycardic, having trouble with insomnia and having loose stool. We held 2 doses and started her back on 75 mcg daily. Will need to have a T4 and TSH rechecked in 4 weeks. (10) Meningioma: Status: Chronic Code(s): D32.9 - Benign neoplasm of meninges, unspecified Plan: Anterior aspect of the right frontal lobe (11) Coronary artery disease: Status: Chronic Code(s): I25.10 - Atherosclerotic heart disease of [place] coronary artery without angina pectoris Qualifiers: Associated angina: without angina Coronary Disease-Associated Artery/Lesion type: [place] artery [place] vs. transplanted heart: [place] heart Qualified Code(s): I25.10 - Atherosclerotic heart disease of [place] coronary artery without angina pectoris Plan: Transthoracic echocardiogram showed mild to moderate inferior and posterior hypokinesis. The ejection fraction was 55%. She had stage II diastolic dysfunction. The left atrium was mildly enlarged and she had mild mitral and tricuspid valve insufficiency. Right ventricular systolic pressure was estimated to be 47. (12) Type 2 diabetes mellitus: Status: Chronic Code(s): E11.9 - Type 2 diabetes mellitus without complications Qualifiers: Chronic kidney disease stage: stage 3 (moderate) Chronic kidney disease stage 3 subtype: unspecified whether 3a or 3b Diabetes mellitus complication detail: with chronic kidney disease Diabetes mellitus complication status: with kidney complications Diabetes mellitus half-way insulin use: without half-way use Qualified Code(s): E11.22 - Type 2 diabetes mellitus with diabetic chronic kidney disease; N18.30 - Chronic kidney disease, stage 3 unspecified Plan: Has never been on insulin in the past. HGBA1C was 8.9 on 05/02/25. She is now on Lantus, scheduled Lispro at [facility] (+ SSI)and Amaryl. Tradjenta and Glucophage were discontinued at the advice of endocrinology. She was referred to Dr. Pisano. (13) Hypertension: Status: Chronic Code(s): I10 - Essential (primary) hypertension Qualifiers: Hypertension type: unspecified Qualified Code(s): I10 - Essential (primary) hypertension Plan: Very difficult to get under control. Multiple medication changes were needed. 1 day prior to DC the BP's are controlled on Hydralazine 50 mg TID, metoprolol tartrate 50 mg every 8 hours and Procardia XL 60 mg daily. (14) Pulmonary hypertension: Status: Chronic Code(s): I27.20 - Pulmonary hypertension, unspecified Plan: Estimated right ventricular systolic pressure on transthoracic echocardiogram was 47 which is consistent with moderate pulmonary hypertension. This likely contributes to the chronic lower extremity edema. She also has varicosities and she sits with her legs dependent most of the day. KAREN hose help with the edema but she does not like to wear them and wears knee-high's instead. (15) Mild left atrial enlargement: Status: Chronic Code(s): I51.7 - Cardiomegaly (16) Grade II diastolic dysfunction: Status: Chronic Code(s): I51.89 - Other ill-defined heart diseases (17) Dementia: Status: Suspected Code(s): F03.90 - Unspecified dementia, unspecified severity, without behavioral disturbance, psychotic disturbance, mood disturbance, and anxiety Qualifiers: Dementia behavioral or psychological symptom: with other behavioral disturbance Dementia severity: moderate Dementia type: Lewy body dementia Qualified Code(s): G31.83 - Neurocognitive disorder with Lewy bodies; F02.B18 - Dementia in other diseases classified elsewhere, moderate, with other behavioral disturbance Plan: Suspect Lewy Body Dementia. She has hallucinations and sx wax and wane from day to day. Some days she is oriented X 4 and recalls staff names and other days he is very confused. Aricept was started on 05/10/25 at 5 mg Q HS and she has had no adverse side effects. She was very paranoid at admission to rehab. Also agitated, argumentative and combative. Denied knowing her and stated he was an imposter. (18) Maternal family history of dementia: Status: Chronic Code(s): Z81.8 - Family history of other mental and behavioral disorders Plan: Mother had dementia which started when she was in her 70's (19) Urinary incontinence: Status: Acute Code(s): R32 - Unspecified urinary incontinence Qualifiers: Urinary Incontinence type: unspecified incontinence Qualified Code(s): R32 - Unspecified urinary incontinence Plan: This is sporadic. (20) Chronic renal failure (CRF), stage 3 (moderate): Status: Chronic Code(s): N18.30 - Chronic kidney disease, stage 3 unspecified Qualifiers: Chronic kidney disease stage 3 subtype: unspecified whether 3a or 3b Qualified Code(s): N18.30 - Chronic kidney disease, stage 3 unspecified Plan: GFR varies between stage IIIa and IIIb. 1 day prior to discharge the GFR was 52. Continue 1500 cc fluid restriction and 20 mg of Lasix Q 48H. Plan 1. DC to [facility] tomorrow for additional therapy 2. 30 days event monitor was applied on 05/10. Follow-up with Dr. Bueno from [facility] has been scheduled to review the results of the 30-day event monitor. 3. F/U with Dr. Grande for stroke and suspected Lewy Body dementia. 4. F/U with Dr. Perez at NH from [facility] 5. F/U with Dr. Pisano for DM II and iatrogenic hyperthyroidism. 6. Avoid antipsychotics if at all possible because they are contraindicated in pts with Lewy Body......juan NO HALDOL. If an antipsychotic is necessary would increase the Risperdal. Use the lowest dose possible. 7. Will defer ordering a sleep study to OP docs. She has unexplained pulmonary HTN. 8. Consider a CTA of the abd to look at the renal arteries if unable to control the BP. She is on 3 different antihypertensives to control BP at present Medications at Discharge Home Medications aspirin 81 mg tablet,delayed release (Adult Aspirin Regimen) 81 mg PO DAILY heart 05/01/25 cholecalciferol (vitamin D3) 25 mcg (1,000 unit) capsule 25 mcg PO DAILY low d 05/01/25 atorvastatin 40 mg tablet 40 mg PO QHS cholesterol #0 tabs 05/05/25 sennosides 8.6 mg-docusate sodium 50 mg tablet (Stimulant Laxative Plus) 2 tab PO BID Constipation 05/06/25 acetaminophen 500 mg tablet 1,000 mg (2 x 500 mg) PO Q8 #1 TAB 05/21/25 bisacodyl 10 mg rectal suppository 10 mg CO X1 PRN Constipation #1 ea 05/21/25 donepezil 5 mg tablet 5 mg PO QHS #1 TAB 05/21/25 furosemide 20 mg tablet 20 mg PO Q48H #1 TAB 05/21/25 glimepiride 1 mg tablet 3 mg (3 x 1 mg) PO BREAKFAST #1 TAB 05/21/25 glimepiride 2 mg tablet 2 mg PO SUPPER #1 TAB 05/21/25 hydralazine 50 mg tablet 50 mg PO TID #1 TAB 05/21/25 insulin glargine-yfgn 100 unit/mL (3 mL) subcutaneous pen 8 unit (0.08 mL) subcut QHS #1 pen 05/21/25 insulin lispro 100 unit/mL subcutaneous pen (Humalog KwikPen (U-100) Insulin) 8 unit (0.08 mL) subcut BREAKFAST #15 mL 05/21/25 insulin lispro 100 unit/mL subcutaneous pen (Humalog KwikPen (U-100) Insulin) See Rx Instructions .Route .COMPLEX #15 mL 05/21/25 levothyroxine 75 mcg tablet 75 mcg PO DAILY@0600 #1 TAB 05/21/25 magnesium hydroxide 400 mg/5 mL oral suspension 30 ml PO X1 PRN Constipation #1 mL 05/21/25 magnesium oxide 400 mg (241.3 mg magnesium) tablet 400 mg PO BIDCM #1 TAB 05/21/25 melatonin 3 mg tablet 6 mg (2 x 3 mg) PO QHS #1 TAB 05/21/25 metoprolol tartrate 50 mg tablet 50 mg PO Q8H #1 TAB 05/21/25 nifedipine 60 mg tablet,extended release 24 hr 60 mg PO DAILY #1 TAB 05/21/25 potassium chloride 20 mEq tablet,extended release(part/cryst) 20 meq PO Q48H #1 TAB 05/21/25 risperidone 0.25 mg tablet 0.25 mg PO QHS #1 TAB 05/21/25 insulin lispro 100 unit/mL subcutaneous pen (Humalog KwikPen (U-100) Insulin) 8 unit (0.08 mL) subcut LUNCH #15 mL 05/22/25 insulin lispro 100 unit/mL subcutaneous pen (Humalog KwikPen (U-100) Insulin) 10 unit (0.1 mL) subcut SUPPER #15 mL 05/22/25 Physical Exam Const alert, oriented x3 and no apparent distress Constitutional Narrative: Sitting in the recliner at the bedside. Very pleasant. Makes good eye contact. No agitationsince first few days on rehab. General Appearance: cooperative, comfortable and well kempt HEENT normocephalic, head/scalp atraumatic and hearing grossly normal bilaterally Eyes PERRL, EOMs intact bilaterally, conjunctivae normal and no scleral icterus Eyes Narrative: No discharge from the eyes. Visual filed cuts left lateral upper and lower quadrant and right medial upper and lower quadrant. General Eye: normal appearance of both eyes Neck supple, No nodes and no carotid bruits General: trachea midline Chest Chest: symmetrical chest wall rise Resp normal respiratory effort, normal air movement and clear to auscultation bilaterally Effort and Inspection: able to speak in complete sentences Cardio regular rhythm, S1 normal heart sound, S2 normal heart sound, no murmurs, no rub and no gallops Cardio Narrative: Tachycardic. rare early beat. She GI normal to inspection, nondistended, normoactive bowel sounds, soft to palpation and non-tender GI Narrative: No guarding with palpation no CVA tenderness Back/Spine Back/Spine Narrative: Kyphosis Extremity no calf tenderness Extremity Narrative: She has superficial varicosities of both lower extremities. The "compression" stocking she has on are basically just knee high nylons. She has mild edema limited to the ankles. Skin General Skin Exam: no breakdown Rashes: no rashes Neuro Neuro Narrative: Still with visual field cuts in the Left lateral superior and inferior contreras and in the R eye superior and inferior medially. No facial asymmetry. Tongue protrudes on the midline. Still with left side neglect. Needs voice cues to scan when reading. When not given voice cues she neglects the left side of the picture I showed her. Occasional trouble word finding. Could not give me the word from bridge. No drift in the upper or lower extremities. No ataxia. No extinction. No sensory deficits. Psych cooperative and affect normal; Negative for thought process normal Psych Narrative: Admits to hearing things other people do not hear. Appearance: grossly normal, appropriate and well kempt Attitude: calm, engaged, No paranoid, No withdrawn, No evasive, No agitated and No aggressive Activity / Motor Behavior: appropriate eye contact Speech: normal speech Weight / BMI Weight Weight: 167 lb Body Mass Index (BMI) 32.8 ABG / Lab / Microbiology Data 05/21/25 05:31 05/21/25 05:31 Laboratory: Laboratory Results - last 24 hr 05/20/25 16:20: POC Glucose 210 H 05/20/25 20:52: POC Glucose 203 H 05/21/25 05:31: WBC 6.5, RBC 3.49 L, Hgb 10.4 L, Hct 30.8 L, MCV 88.3, MCH 29.8, MCHC 33.8, RDW Std Deviation 43.4, RDW Coeff of José 13.5, Plt Count 219, MPV 10.4, Sodium 135, Potassium 4.0, Chloride 100, Carbon Dioxide 26.4, Anion Gap 8, BUN 13, Creatinine 1.08, Estim Creat Clear Calc 37.11 L, Est GFR (MDRD) Non-Af 52 L, BUN/Creatinine Ratio 12.3, Glucose 165 H, Calcium 9.0, Magnesium 2.0, Total Bilirubin 0.28, AST 24, ALT 22, Alkaline Phosphatase 38, Total Protein 5.9, Albumin 3.6, Globulin 2.3, Albumin/Globulin Ratio 1.5 05/21/25 06:36: POC Glucose 163 H 05/21/25 11:53: POC Glucose 179 H Indicators for Scoring Admitted with or Primary Diagnosis of CVA/Stroke: Yes Hx of CVA/Stroke: Yes Modified [place] Score MRS Score at time of Evaluation: 3-Moderate disability (Down from a 4 at admission) NIHSS NIHSS 1a. Level of Consciousness: 0 - Alert; keenly responsive 1b. LOC Questions: 0 - Answers BOTH questions correctly 1c. LOC Commands: 0 - Performs BOTH tasks correctly 2. Best Gaze: 1 - Partial gaze palsy; (Left eye does not deviate completely to the lateral canthus) 3. Visual: 2 - Complete hemianopia (Left ) 4. Facial Palsy: 0 - Normal symmetrical movements 5a. Left Arm: 0 - No drift; arm holds 90 (or 45) degrees for full 10 seconds 5b. Right Arm: 0 - No drift; arm holds 90 (or 45) degrees for full 10 seconds 6a. Left Le - No drift; leg holds 30-degree position for full 5 seconds 6b. Right Le - No drift; leg holds 30-degree position for full 5 seconds 7. Limb Ataxia: 0 - Absent 8. Sensory: 0 - Normal; no sensory loss 9. Best Language: 1 - [id number]-[id number] aphasia; 10. Dysarthria: 0 - Normal 11. Extinction and Inattention: 0 - No abnormality Total: 4 (down from a 5 at admission to rehab......ataxia of the LUE has resolved. ) Stroke Questions Stroke Team Activated: No D/C Instructions Diet Diet Order/Speech Therapy: INPATIENT Hospital Diet / Speech Therapy Order(s) 05/06/25 15:20 Carb [Diet: Carbohydrate Controlled] Food consistency:: Regular Liquid Consistency:: Regular/Thin Dietary Modifications:: Cardiac / Heart Healthy Fluid restriction:: 1500 mL Discharge order: Continue INPATIENT Hospital Diet / Speech Therapy Orders: Yes Discharge Activity: May Not Drive Weight Bearing Status: Full weight bearing Keep extremity elevated above heart level: Legs DC O2, CPAP, BIPAP Needs Home O2 Discharge instructions: No DC home with Oxygen: No Please Follow Up With: [facility] Meaningful Use Info Meaningful Use Meaningful Use Diagnoses (Choose all that apply): Ischemic CVA CVA Therapy Assessed for PT,OT and/or ST?: Yes Ischemic Stroke Antithrombotic order at d/c?: Yes Dx of Atrial fib/flutter?: No Anticoagulant at discharge?: No Reason anticoagulant not ordered: Treatment not Indicated (30-day event monitor is in progress. Will follow-up with cardiology for the results.) Statin Dosing Therapy Reference: STATIN DOSE THERAPY REFERENCE: * Patients > 75 years receive moderate or high dose statin therapy. * Patients 75 years or YOUNGER should receive HIGH intensity statin dose unless contraindicated. You will be required to document reason for non-treatment if statin daily dose does not meet guidelines. HIGH DOSE STATIN THERAPY DAILY Atorvastatin > than or = to 40 mg Rosuvastatin > than or = to 20 mg Amlodipine + Atorvastatin > than or = to 2.5/40 mg Ezetimibe + Simvastatin 10/80 mg Simvastatin 80mg Statins at discharge?: Yes Primary Dx Acute Ischemic CVA?: Yes IV thrombolytic ordered during stay?: No Reason IV thrombolytic not ordered: Procedure not Indicated Discharge Plan Admission Admit Date/Time: 05/06/25 14:48 Primary Reason for Your Visit: post stroke debility Attending Provider: Reba Calle Primary Care Provider: Micky Perez Discharge Orders/Prescriptions Prescriptions: New donepezil 5 mg Tablet 5 mg PO QHS Qty: 1 0RF acetaminophen 500 mg Tablet 1,000 mg PO Q8 Qty: 1 0RF glimepiride 2 mg Tablet 2 mg PO SUPPER Qty: 1 0RF glimepiride 1 mg Tablet 3 mg PO BREAKFAST Qty: 1 0RF bisacodyl 10 mg Suppository 10 mg CO X1 PRN (Reason: Constipation) Qty: 1 0RF hydralazine 50 mg Tablet 50 mg PO TID Qty: 1 0RF furosemide 20 mg Tablet 20 mg PO Q48H Qty: 1 0RF insulin lispro [Humalog KwikPen Insulin] 100 unit/mL Insulin Pen See Rx Instructions .ROUTE .COMPLEX Qty: 15 0RF Protocol: 4. Sliding Scale Insulin High-Med Dosing Condition: 150-199 mg/dl = 2 units Condition: 200-259 mg/dl = 4 units Condition: 260-324 mg/dl = 6 units Condition: 325-374 mg/dl = 8 units Condition: 375-409 mg/dl = 10 units Condition: 410-449 mg/dl = 11 units Condition: Greater than 449 call physician Protocol Text: Suggested for: - Patients on Total Daily Insulin Dose of 56-80 units - Patient who are known to be insulin resistant or septic HIGH MEDIUM DOSING ALGORITHM Rx Instructions: 2 units for blood sugar 152-199, 4 units for BS 200-259, 6 units for BS 260-324, 8 units for BS 325-375 and 10 units for BS > 375 insulin glargine-yfgn 100 unit/mL (3 mL) Insulin Pen 8 unit subcut QHS Qty: 1 0RF insulin lispro [Humalog KwikPen Insulin] 100 unit/mL Insulin Pen 8 unit subcut BREAKFAST Qty: 15 0RF risperidone 0.25 mg Tablet 0.25 mg PO QHS Qty: 1 0RF melatonin 3 mg Tablet 6 mg PO QHS Qty: 1 0RF levothyroxine 75 mcg Tablet 75 mcg PO DAILY@0600 Qty: 1 0RF potassium chloride 20 mEq Tablet,Er Particles/Crystals 20 meq PO Q48H Qty: 1 0RF magnesium oxide 400 mg (241.3 mg magnesium) Tablet 400 mg PO BIDCM Qty: 1 0RF magnesium hydroxide 400 mg/5 mL Suspension 30 ml PO X1 PRN (Reason: Constipation) Qty: 1 0RF nifedipine 60 mg Tablet Extended Release 24hr 60 mg PO DAILY Qty: 1 0RF metoprolol tartrate 50 mg Tablet 50 mg PO Q8H Qty: 1 0RF insulin lispro [Humalog KwikPen Insulin] 100 unit/mL Insulin Pen 8 unit subcut LUNCH Qty: 15 0RF insulin lispro [Humalog KwikPen Insulin] 100 unit/mL Insulin Pen 10 unit subcut SUPPER Qty: 15 0RF Continued aspirin [Adult Aspirin Regimen] 81 mg tablet,delayed release (DR/EC) 81 mg PO DAILY cholecalciferol (vitamin D3) 25 mcg (1,000 unit) capsule 25 mcg PO DAILY atorvastatin 40 mg Tablet 40 mg PO QHS Qty: 0 0RF sennosides-docusate sodium [Stimulant Laxative Plus] 8.6-50 mg Tablet 2 tab PO BID Discontinued labetalol 200 mg tablet 600 mg PO BID hydralazine 25 mg tablet 50 mg PO Q12H levothyroxine 75 mcg tablet 75 mcg PO MOTUWETHFRSA metformin 1,000 mg tablet 1,000 mg PO BID lisinopril 30 mg tablet 30 mg PO BID furosemide 20 mg tablet 20 mg PO DAILY Januvia 100 mg tablet 100 mg PO DAILY glimepiride 4 mg tablet 4 mg PO BID acetaminophen 325 mg Tablet 650 mg PO Q6H PRN PRN (Reason: Pain 1-10 Or Fever>100.7) Qty: 0 0RF risperidone 0.25 mg Tablet 0.25 mg PO BID Qty: 0 0RF potassium chloride 20 mEq Tablet,Er Particles/Crystals 40 meq PO DAILYCM 2 Days Qty: 4 0RF levothyroxine [Synthroid] 150 mcg tablet 150 mcg PO CONNELL heparin (porcine) 5,000 unit/mL solution 5,000 unit subcut Q12H Referrals / Follow Up: Kt Bueno DO [Med Staff - Active Staff, Cardiology] - 06/12/25 1:00 pm David Grande MD [Non-Staff -Ordering Privileges, Neurology] - 06/05/25 10:30 am Óscar Pisano MD [Med Staff - Courtesy Staff, Endocrinology] Disposition Disposition (needs filled in before D/C Order can be placed): Halfway Facility Charges/Coding Visit Charges Inpatient E&M: 14411 Disch Hosp >30min Hospital Course RU Operations None Procedures Transthoracic echo (Posterior and inferior wall motion abnormalities with a 55% ejection fraction. Mild mitral and tricuspid insufficiency. Stage II diastolic dysfunction. Right ventricular systolic pressure is elevated at 47 consistent with mild pulmonary hypertension.) Summary of Care Provided Minutes Spent on Discharge: 50 Hospital Course: CHALINO ARGUELLES, is a 79 YO F with a PMH of hypertension, diabetes mellitus type 2, congestive heart failure, coronary artery disease, chronic renal failure stage III and history of a TIA who presented to the emergency department at [facility] on 05/01/2025 with complaints of confusion/altered mental status for the preceding couple days. Her who is her primary caregiver related that she had had some vomiting about 3 days prior to presenting to the ER and then started having dry heaves. Oral intake has been poor. In the emergency room she had a temp of 100.7 °F, heart rate of 126-135 and a mildly elevated blood pressure ( low for her). She was not hypoxic. White blood cell count was elevated at 12.3 with a left shift. Hemoglobin was 11.4 and platelets were within normal limits. Sodium was low at 128 and the serum bicarb was low at 16.8. The BUN was 41 with a creatinine of 2.15 (elevated above her baseline) and her blood sugar was 430. Lactic acid was elevated at 2.4. Beta hydroxybutyric was elevated at 1.9. The UA showed 0 WBCs per high-power field. She was negative for COVID, influenza and RSV. Respiratory panel was negative. Chest x-ray showed no acute findings. A noncontrast CT brain showed a stable changes as well as meningioma in the anterior aspect of the right frontal lobe. CTA of the head and neck showed mild atherosclerotic plaque formation at the origin of both the right and left internal carotid arteries causing less than 50% stenosis. She was admitted to the hospitalist service and placed in the ICU with a diagnosis of DKA and sepsis. No source for infection was identified. She became very agitated in the ICU and was placed on Precedex to control behavior. She also received Haldol. Blood and urine cultures were negative. Precedex was discontinued and she was started on Risperdal 0.25 mg BID. Transthoracic echocardiogram showed mild to moderate inferior and posterior hypokinesis with an estimated ejection fraction of 55%. She had stage II diastolic dysfunction. The left atrium was mildly enlarged and she had mild mitral and tricuspid valve insufficiency. The right ventricular systolic pressure was estimated to be 47. MRI showed acute ischemia in the right posterior cerebral artery distribution involving the right occipital lobe and portions of the posterior right thalamus. There were chronic microvascular ischemic changes and volume loss. While in the hospital she was evaluated by PT/OT/ST and acute rehab was recommended. She was transferred to the acute rehab unit at [facility] on 05/06/25 for 3 hours of therapy daily to restore function/independence at or near her level prior to the stroke. While on the acute side of the hospital she had a TSH done and it was low for her age at 0.576. She was tachycardic with very elevated blood pressures. She complained of frequent most stool and also complained of being "always hot". T4 was checked after arrival on rehab and it was elevated at 1.80. She was taking 75 mcg of levothyroxine Wednesday through Wednesday and 150 mcg on Wednesday. Levothyroxine was held for 2 days in a row and then she was restarted on 75 mcg daily. She will need to have another TSH and T4 checked in 4 to 6 weeks. The tachycardia has resolved and her blood pressure is now controlled. She is not having frequent loose stools. He is no longer complaining of being "too hot". She had a p.m. cortisol checked on 05/01/2025 and it was markedly elevated at 104. This was at admission and she was "septic" and acidotic and confused. An AM cortisol was checked on rehab and it was normal at 16.8. The creatinine at presentation to rehab was improved at 1.52. Serum bicarb was normal at 22.4. She was very agitated at admission to rehab. She was confused and paranoid. She was Refusing medications and lab work and was requiring a sitter. She was siting in the hallway and would not go back to her room. She denied knowing her when she saw him and told us he was an imposter. Family was unable to calm her down. She was up most of the first few nights until we adjusted the Risperdal up to 0.25 mg in the AM and 0.5 mg at HS. Melatonin 3 mg was added to the drug regimen. She became very cooperative and pleasant. At times she was very confused and on other days she asked appropriate questions, was oriented X4 and had insight on why we were treating her and requiring bed alarms........I explained why the alarms were necessary and she said, "It's to keep me safe". She had auditory hallucinations while on rehab......most often at night. I suspect she may have Lewy Body dementia. Her mother of "Alzheimer's" which began in her 70s. She was started on Aricept 5 mg p.o. nightly. Melatonin was increased to 6 mg nightly and Risperdal was weaned down to 0.25mg at HS. She was sleeping through the night and there was no agitation. We held Risperdal for 2 nights and she was up most of both nights. Risperdal 0.25 mg at HS was restarted and she has been sleeping much better. She occasionally awakens at night and insists she is hearing voices in her room. She is unable to draw a clock or copy interlocking pentagons. She scored 33 out of 50 on the brief cognitive assessment tool. At the time of discharge from rehab she is able to do 6 stands at contact-guard assist using her upper extremities to rise. She has completed 5 steps of various heights with 2 handrails at contact-guard assist. Not yet able to do a curb step. She has ambulated up to 160 feet on various surfaces with a front wheeled walker at contact-guard assist. She is supervision/set up for eating and grooming. She is standby assist for bathing, lower body dressing, toilet transfer and toileting. She requires minimal assistance with upper body dressing. She is contact-guard assist for tub/shower transfer. BS's were very difficult to control and she had to be started on Insulin. Metformin and Tradjenta were discontinued. Amaryl was continued at 3 mg in the a.m. and 2 mg in the p.m. At the time of discharge she is on Lantus 8 units at bedtime and lispro (8 units with breakfast, 8 units with lunch and 10 units with supper). She is also on sliding scale insulin and a medium high dose. Blood sugars are erratic because family brings in high carb foods for her to eat......this is why she needs to continue with SSI. She is going to follow-up with Dr. Óscar Pisano from endocrinology to manage diabetes and iatrogenic hyperthyroidism. BP was also very difficult to control. At the time of DC it is controlled on hydralazine 50 mg 3 times daily, metoprolol tartrate 50 mg 3 times daily and Procardia XL 60 mg daily. Lisinopril was discontinued and creatinine improved. It may be worthwhile to get a CTA of the abd to look at the renal arteries for stenosis. Final lab was checked 1 day prior to discharge. Sodium was 135 and potassium was 4.0. Serum bicarb is normal at 26.4 and the BUN is down to 13 with a creatinine of 1.08. during her admission to rehab Lasix was decreased to 20 mg Q48 hours and she was placed on 1500 cc fluid restriction. Wt is stable and she has mild ankle edema but lungs are CTA. Edema was controlled with KAREN hose but, she does not like to wear them.....she is wearing some compression stockings she purchased but, they are not as supportive as KAREN hose. LFTs and magnesium were normal. Calcium is normal at 9. Hemoglobin is stable at 10.4 with normochromic normocytic indices and a normal RDW. Platelets are within normal limits and the white blood cell count is within normal limits. Her did not feel he could manage her care at home and family decided on a SNF. she was transferred to [facility] on 05/22/25 to continue therapy in hopes that one day she could return home. She has an appt to follow up with Dr. Grande from neurology for stroke/suspected dementia. She will follow up with Dr. Perez following DC from [facility]. She has an appt with Dr. Bueno from cardiology to discuss the results of the 30 day event monitor. She has pulmonary HTN and no significant valvular heart disease. Consider a sleep study to r/o FRANCIS as etiology of this.
[2025-05-21] MEDS: Insulin Glargine-YFGN 100 UNIT/ML Pen 8 UNIT SC (20:53)
[2025-05-21] MEDS: MELATONIN 3 MG TABLET 6 MG PO (20:56)
[2025-05-22 05:00] VITALS: BMI 32.8
[2025-05-22] MEDS: Arthritis Pain Compound 60 CLICK TUBE TOPICAL (05:16)
[2025-05-22 05:17] VITALS: BP 144/67; PULSE 77
[2025-05-22 05:20] VITALS: BMI 32.8
[2025-05-22 06:00] VITALS: BP 144/67; PULSE 77; RESP 17; TEMP 36.5; O2SAT 93
[2025-05-22 08:04] VITALS: PULSE 77
[2025-05-22] MEDS: Cholecalciferol (VIT D3) 25 MCG TABLET (1,000 UNITS) PO (08:04)
[2025-05-22] MEDS: Senna/Docusate Sodium 1 Tablet 2 TABLET PO (08:04)
[2025-05-22 08:05] VITALS: PULSE 77
[2025-05-22] MEDS: NIFEdipine 60 MG Tablet PO (08:05)
[2025-05-22] MEDS: Aspirin E.C. 81 MG Tablet PO (08:05)
[2025-05-22] MEDS: Heparin Injection (Vial) 5,000 UNIT/ML VIAL 5000 UNIT SC (08:05)
[2025-05-22] MEDS: Potassium Chloride Oral Tablet 20 MEQ PO (08:06)
--- NOTE | 2025-05-22 10:58 | NURSING ---
Called report to [facility], spoke with Yuly.
[2025-05-22 12:12] VITALS: BP 153/78; PULSE 65; RESP 17; TEMP 36.8; O2SAT 95
== END 2025-05-22 12:41 | disposition skilled nursing facility (03) | DRG 57 ==
PROVIDERS: Admitting Provider Internal Medicine; PCP Family Medicine; Visit Provider Internal Medicine
DX: I69.398 Other sequelae of cerebral infarction (principal); R41.4 Neurologic neglect syndrome; F02.B18 Dementia in other diseases classified elsewhere, moderate, with other behavioral disturbance; I50.32 Chronic diastolic (congestive) heart failure; I13.0 Hypertensive heart and chronic kidney disease with heart failure and stage 1 through stage 4 chronic kidney disease, or unspecified chronic kidney disease; I27.20 Pulmonary hypertension, unspecified; F22 Delusional disorders; H53.462 Homonymous bilateral field defects, left side; N18.30 Chronic kidney disease, stage 3 unspecified; E11.22 Type 2 diabetes mellitus with diabetic chronic kidney disease; E03.9 Hypothyroidism, unspecified; E06.4 Drug-induced thyroiditis; D32.9 Benign neoplasm of meninges, unspecified; I25.10 Atherosclerotic heart disease of native coronary artery without angina pectoris; I83.893 Varicose veins of bilateral lower extremities with other complications; M19.90 Unspecified osteoarthritis, unspecified site; G31.83 Neurocognitive disorder with Lewy bodies; E11.65 Type 2 diabetes mellitus with hyperglycemia; I49.3 Ventricular premature depolarization; Z79.899 Other long term (current) drug therapy; G47.00 Insomnia, unspecified; Z79.84 Long term (current) use of oral hypoglycemic drugs; Z23 Encounter for immunization; Z79.890 Hormone replacement therapy; Z79.82 Long term (current) use of aspirin; R32 Unspecified urinary incontinence; T38.1X5A Adverse effect of thyroid hormones and substitutes, initial encounter
CPT/HCPCS: 36415; 74018; 74230; 80048; 80053; 82533; 82962; 83735; 84100; 84439; 84481; 85014; 85018; 85025; 85027; 86376; 86800; 92507; 92523; 92526; 92610; 92611; 93005; 97110; 97112; 97116; 97129; 97130; 97162; 97165; 97530; 97533; 97535; 97803